=== PATIENT | female | born 1945 | race Caucasian/White ===

== ENCOUNTER → 2017-11-11 | Outpatient (CLI) | payer OTHER ==
[~2017-11-11] MED LIST: COEN150C PO; FISHOIL PO; VITA100C2 PO; vitamin C PO
--- NOTE | 2017-11-11 15:06 | DIAGNOSTIC IMAGING REPORT ---
KUB CLINICAL HISTORY: ABD PAIN nausea COMPARISON STUDY: No previous studies for comparison. FINDINGS: The soft tissues, psoas shadows, renal outlines and intestinal gas pattern appear normal. There is no evidence for bowel obstruction. No abnormal abdominal calcifications are seen. IMPRESSION: Normal study. The above report was generated using voice recognition software. It may contain grammatical, syntax or spelling errors. Electronically signed by: Shawn Bustamante M.D. 11/11/2017 3:04 PM Dictated Date/Time: 11/11/2017 3:04 PM
== END | disposition home or self-care (01) ==
LOC: C.RADPV 14:29
PROVIDERS: ATTEND Family Medicine
DX: R10.9 Unspecified abdominal pain (principal); R39.9 Unspecified symptoms and signs involving the genitourinary system

== ENCOUNTER 2018-09-29 01:16 | Inpatient (IN) ==
[2018-09-29] MEDS ORDERED: HALOPERIDOL LACTATE 5 MG/ML 1 ML VIAL ONE (01:36)
[2018-09-29] MEDS ORDERED: LORazepam 2 MG/ML VIAL (IM USE) ONE (01:36)
[2018-09-29] MEDS ORDERED: HALOPERIDOL LACTATE 5 MG/ML 1 ML VIAL IM STA (01:57)
[2018-09-29] MEDS ORDERED: LORazepam 2 MG/ML VIAL (IM USE) IM STA (01:57)
[2018-09-29 02:12] LABS: Basophils # (auto) 0.02 K/uL (0-0.2); Basophils % (auto) 0.2 %; Hematocrit (blood only) 35.6 % (37-47); Hemoglobin 12.3 g/dL (12.0-16.0); Immature Granulocytes # (auto) 0.01 K/uL (0.00-0.02); Immature Granulocytes % (auto) 0.1 %; Lymphocytes # (auto) 1.15 K/uL (1.2-3.4); Lymphocytes % (auto) 13.8 %; Mean Corpuscular Hgb Conc 34.6 g/dL (32-36); Mean Corpuscular Volume 92.5 fL (80-100); Mean Platelet Volume 9.5 fL (7.4-10.4); Monocytes # (auto) 0.34 K/uL (0.11-0.59); Monocytes % (auto) 4.1 %; Neutrophils # (auto) 6.83 K/uL (1.4-6.5); Neutrophils % (auto) 81.8 %; Platelet Count 271 K/uL (130-400); RDW Coefficient of Variation 13.6 % (11.5-14.5); RDW Standard Deviation 45.8 fL (36.4-46.3); Red Blood Count 3.85 M/uL (4.2-5.4); White Blood Count 8.35 K/uL (4.8-10.8)
[2018-09-29 02:28] LABS: Alanine Aminotransferase 35 U/L (12-78); Aspartate Aminotransferase 27 U/L (15-37); BUN Creatinine Ratio 16.7 (10-20); Blood Urea Nitrogen 12 mg/dl (7-18); Calcium 8.7 mg/dl (8.5-10.1); Carbon Dioxide 22 mmol/L (21-32); Chloride 98 mmol/L (98-107); Est GFR (Non-African American) 87.2; Glucose 150 mg/dl (70-99); Potassium 3.5 mmol/L (3.5-5.1); Sodium 129 mmol/L (136-145)
[2018-09-29 02:39] LABS: Albumin Globulin Ratio 1.2 (0.9-2); Alkaline Phosphatase 73 U/L (45-117); Bilirubin,Total 0.6 mg/dl (0.2-1); Globulin 3.3 gm/dl (2.5-4.0); Total Protein 7.3 gm/dl (6.4-8.2)
[2018-09-29 02:41] LABS: Acetaminophen < 2 ug/ml (10-30)
[2018-09-29 02:42] LABS: Salicylate < 1.7 mg/dl (2.8-20)
[2018-09-29] MEDS ORDERED: SODIUM CHLORIDE 0.9% 1000ML 1,000 ML IV ONE (03:21)
[2018-09-29 04:59] LABS: Appearance Urine Clear (Clear); Bacteria Urine Automated Negative (Negative); Bilirubin Urine Negative (Negative); Color Urine Yellow; Epithelial Cell Urine Auto 20-30 /lpf (0-5); Glucose Urine UA Negative (Negative); Ketones Urine Negative (Negative); Leukocyte Esterase Urine 2+ (Negative); Nitrite Urine Negative (Negative); Protein Urine Negative (Negative); Specific Gravity Urine 1.014 (1.000-1.030); Urobilinogen Urine Negative (Negative); pH Urine 5.5 (4.5-7.5)
[2018-09-29 05:14] LABS: Amphetamines+Metham, Urine Neg (Neg); Barbiturates, Urine Neg (Neg); Benzodiazepine, Urine Neg (Neg); Cocaine, Urine Neg (Neg); MDMA (Ecstacy), Urine Neg (Neg); Methadone, Urine Neg (Neg); Opiate, Urine Neg (Neg); Phencyclidine, Urine Neg (Neg)
--- NOTE | 2018-09-29 06:26 | Emergency Department Note ---
Entered by Chhaya Gaston acting as a scribe for History of Present Illness General Chief complaint: Mental Health Evaluation Stated complaint: HAS NOT SLEPT FOR SEVERAL DAYS,NOT TAKING MEDS Time Seen by Provider: 09/29/18 01:26 Source: patient, RN notes reviewed and other (RN notes, nursing staff) History of Present Illness Location: head Pain Consistency: + constant Quality: + other (mental health) Associated symptoms: + denies other symptoms (difficulty urinating); no loss of appetite The patient is a 73 year old female who presents to the Emergency Room for a mental health evaluation. The patient's son states that the patient's hasn't been getting enough sleep the past few days. The son complains that she hasn't been taking her medications and she's manic. Her reports that she has been verbally abuse the past few weeks and she was aggressive [employer] tonight. The patient's son states that she has been accusing him and her of being abusive when they are attempting to get her medical attention. They note that she hasn't been calling the police to her house. Her son states that she ran away from her family and the staff in the hospital parking lot while trying to be brought in. She denies any difficulty urinating or change in appetite. The patient states that her "health is fine." Her son reports that she has had mental health problems since 2013. Per the patient's son, she stopped taking her Risperidone and Trazodone about 2 weeks ago. HPI and ROS limited secondary to mental status. Home Medications Home Medications Medication Instructions Recorded Confirmed Type clonazepam 0.5 - 1 mg PO HS PRN 09/07/18 09/29/18 History sertraline 100 mg PO DAILY 09/07/18 09/29/18 History risperidone 0.5 mg PO BID 09/29/18 09/29/18 History trazodone 50 mg PO HS 09/29/18 09/29/18 History Allergies Allergy/AdvReac Type Severity Reaction Status Date / Time Penicillins Allergy Unknown rash Verified 09/29/18 02:03 Past Med/Surg History Medical History Bipolar 1 disorder with moderate freedom Mental health problem Surgical History H/O: hysterectomy (~1979) Family History Other Cancer Social History marital status: Feels Safe at Home: Yes Smoking Status: Unknown if ever smoked Preferred Language: French Review of Systems Other (HPI and ROS limited secondary to mental status. ) Physical Exam Vital Signs Vital Signs - 24 hr 09/29/18 01:52 09/29/18 02:00 09/29/18 02:18 Temperature 37.6 C H Temperature Source Oral Sepsis Recent Fever Within 48 Hours No Sepsis New/Unexplained Change in Mental Status No Sepsis Action Taken by Nursing No Action Required Pulse Rate 120 H Pulse Rate [Finger] 75 72 Respiratory Rate 18 18 18 Blood Pressure 198/97 H Blood Pressure [Right Arm] 120/65 105/56 L Blood Pressure Mean 130 Blood Pressure Mean [Right Arm] 83 72 Pulse Oximetry 100 94 94 Oxygen Delivery Method Room Air Room Air Room Air 09/29/18 02:30 09/29/18 02:45 09/29/18 03:00 Temperature Temperature Source Sepsis Recent Fever Within 48 Hours Sepsis New/Unexplained Change in Mental Status Sepsis Action Taken by Nursing Pulse Rate Pulse Rate [Finger] 69 69 67 Respiratory Rate 18 18 18 Blood Pressure Blood Pressure [Right Arm] 98/54 L 99/52 L 98/52 L Blood Pressure Mean Blood Pressure Mean [Right Arm] 68 67 67 Pulse Oximetry 95 95 96 Oxygen Delivery Method Room Air Room Air Room Air 09/29/18 04:47 Temperature Temperature Source Sepsis Recent Fever Within 48 Hours Sepsis New/Unexplained Change in Mental Status Sepsis Action Taken by Nursing Pulse Rate Pulse Rate [Finger] 67 Respiratory Rate 18 Blood Pressure Blood Pressure [Right Arm] 122/69 Blood Pressure Mean Blood Pressure Mean [Right Arm] 86 Pulse Oximetry 98 Oxygen Delivery Method Room Air General: Yelling loudly. Would not follow directions. Exhibiting threatening behavior towards the staff. HEENT: Head - normocephalic and atraumatic Pupils are equal, round, and reactive to light. Extraocular eye muscles are intact, and sclera are anicteric. Nose - moist nasal mucosa without discharge. Mouth - moist buccal mucosa. Oropharynx is nonerythematous and there is no tonsillar exudate or edema noted. Neck: Supple; no JVD, nuchal rigidity, cervical lymphadenopathy, or auscultated bruits. Heart: Tachycardic rate and regular rhythm. There is a normal S1 and S2 with no murmurs, clicks, or gallops appreciated. Lungs: Clear to auscultation bilaterally with no wheezes, rales, or rhonchi. Abdomen: Soft, completely nontender, nondistended, with good bowel sounds. There are no palpable pulsatile masses or hepatosplenomegaly. There is no guarding, rigidity, or rebound noted. Extremities: No evidence of cyanosis, clubbing, or edema. There are easily palpable peripheral pulses. Skin: warm and dry with good turgor and no rashes. Psych: Patient appears manic. Tangential thought process. Yelling loudly. Course 0128: Past medical records reviewed. The patient was evaluated in room A08, and a limited history and physical examination were performed. I assisted with security and nursing staff to maintain the patient's safety and prevent her from harming herself. We were able to get her changed into hospital scrubs and prepare for medical clearance. I had a long conversation with the patient's and son in the waiting room. 0136: The patient was chemically sedated with Ativan 2 mg IM, Haldol 5 mg IM 0211: I checked on the patient. She was sound asleep. 0249: Per the caser shoe parts, the family petitioned a 302, the caser shoe parts petitioned a supplement, and [facility] petitioned a warrant. 0321: The patient was hyponatremic. She was given NSS 1000 mls @ 999 mls/hr IV 0439: Per the nursing staff, the patient is awake and cooperative. The nursing staff states that she just finished her fluid bolus. Her labs will be redrawn. 0511: The patients sodium came up to 132 after she received the saline. She was medically cleared at that time for evaluation. 0521: I checked on the patient. She was sleeping. The caser shoe parts was working on placement. 0633: I signed the 302. 3 S. will review the patient's chart and decide on bed placement. 0700: The patient was signed out to Dr. Llanes, [facility] Emergency room, at the change of shift. Administered Medications Discontinued Medications Haloperidol Lactate (Haldol) Confirm Administered Dose 5 mg .ROUTE .[facility] [place]-MED ONE Stop: 09/29/18 01:37 Last Admin: 09/29/18 01:45 Dose: 5 mg Haloperidol Lactate (Haldol) 5 mg IM NOW STA Stop: 09/29/18 01:58 Last Admin: 09/29/18 02:20 Dose: Not Given Sodium Chloride (Nss 1000ml) 1,000 mls @ 999 mls/hr IV .Q1H1M ONE Stop: 09/29/18 04:21 Last Infusion: 09/29/18 04:38 Dose: 0 mls/hr Admin: 09/29/18 03:34 Dose: 999 mls/hr Lorazepam (Ativan) Confirm Administered Dose 2 mg .ROUTE .STK-MED ONE Stop: 09/29/18 01:37 Last Admin: 09/29/18 01:45 Dose: 2 mg Lorazepam (Ativan) 2 mg IM NOW STA Stop: 09/29/18 01:58 Last Admin: 09/29/18 02:19 Dose: Not Given Medical Decision Making Differential Diagnosis The differential diagnosis includes: sleep deprivation, mood disorder, thought disorder, acute freedom, and medication side effects. Medical Records Attestation: I reviewed the patient's medical records. Home Medications Current Medication List: was personally reviewed by me Laboratory Data Attestation: I reviewed the patient's lab results. Result diagrams: 09/29/18 02:00 09/29/18 04:45 Lab Results 09/29/18 09/29/18 09/29/18 Range/Units 02:00 02:00 02:00 WBC 8.35 (4.8-10.8) K/uL RBC 3.85 L (4.2-5.4) M/uL Hgb 12.3 (12.0-16.0) g/dL Hct 35.6 L (37-47) % MCV 92.5 (80-100) fL MCH 31.9 (25-34) pg MCHC 34.6 (32-36) g/dL RDW Std Deviation 45.8 (36.4-46.3) fL RDW Coeff of Gerson 13.6 (11.5-14.5) % Plt Count 271 (130-400) K/uL MPV 9.5 (7.4-10.4) fL Immature Gran % (Auto) 0.1 % Neut % (Auto) 81.8 % Lymph % (Auto) 13.8 % [place] % (Auto) 4.1 % Eos % (Auto) 0.0 % Baso % (Auto) 0.2 % Immature Gran # (Auto) 0.01 (0.00-0.02) K/uL Neut # (Auto) 6.83 H (1.4-6.5) K/uL Lymph # (Auto) 1.15 L (1.2-3.4) K/uL [place] # (Auto) 0.34 (0.11-0.59) K/uL Eos # (Auto) 0.00 (0-0.5) K/uL Baso # (Auto) 0.02 (0-0.2) K/uL Sodium 129 L (136-145) mmol/L Potassium 3.5 (3.5-5.1) mmol/L Chloride 98 (98-107) mmol/L Carbon Dioxide 22 (21-32) mmol/L Anion Gap 9.0 (3-11) BUN 12 (7-18) mg/dl Creatinine 0.70 (0.6-1.2) mg/dl Est Cr Clr Drug Dosing Not Reportable Est GFR ( Amer) 101.0 Est GFR (Non-Af Amer) 87.2 BUN/Creatinine Ratio 16.7 (10-20) Glucose 150 H (70-99) mg/dl Calcium 8.7 (8.5-10.1) mg/dl Total Bilirubin 0.6 (0.2-1) mg/dl AST 27 (15-37) U/L ALT 35 (12-78) U/L Alkaline Phosphatase 73 (45-117) U/L Total Protein 7.3 (6.4-8.2) gm/dl Albumin 4.0 (3.4-5.0) gm/dl Globulin 3.3 (2.5-4.0) gm/dl Albumin/Globulin Ratio 1.2 (0.9-2) TSH 3.050 (0.300-4.500) uIu/ml Urine Color Urine Appearance (Clear) Urine pH (4.5-7.5) Ur Specific Left Hand (1.000-1.030) Urine Protein (Negative) Urine Glucose (UA) (Negative) Urine Ketones (Negative) Urine Blood (Negative) Urine Nitrite (Negative) Urine Bilirubin (Negative) Urine Urobilinogen (Negative) Ur Leukocyte Esterase (Negative) Urine WBC (Auto) (0-5) /hpf Urine RBC (Auto) (0-4) /hpf U Hyaline Cast (Auto) (0-5) /lpf U Epithel Cells (Auto) (0-5) /lpf Urine Bacteria (Auto) (Negative) Salicylates < 1.7 L (2.8-20) mg/dl Urine Opiates Screen (Neg) Ur Methadone, Qual (Neg) Acetaminophen < 2 L (10-30) ug/ml Urine Barbiturates (Neg) Ur Phencyclidine (PCP) (Neg) U Amphetamin/Meth Scrn (Neg) MDMA (Ecstasy) Screen (Neg) U Benzodiazepines Scrn (Neg) Ur Cocaine Metabolite (Neg) U Marijuana (THC) Screen (Neg) Ethyl Alcohol mg/dL (0-3) mg/dl 09/29/18 09/29/18 09/29/18 Range/Units 02:00 04:45 04:45 WBC (4.8-10.8) K/uL RBC (4.2-5.4) M/uL Hgb (12.0-16.0) g/dL Hct (37-47) % MCV (80-100) fL MCH (25-34) pg MCHC (32-36) g/dL RDW Std Deviation (36.4-46.3) fL RDW Coeff of Gerson (11.5-14.5) % Plt Count (130-400) K/uL MPV (7.4-10.4) fL Immature Gran % (Auto) % Neut % (Auto) % Lymph % (Auto) % Otoe % (Auto) % Eos % (Auto) % Baso % (Auto) % Immature Gran # (Auto) (0.00-0.02) K/uL Neut # (Auto) (1.4-6.5) K/uL Lymph # (Auto) (1.2-3.4) K/uL Otoe # (Auto) (0.11-0.59) K/uL Eos # (Auto) (0-0.5) K/uL Baso # (Auto) (0-0.2) K/uL Sodium 132 L (136-145) mmol/L Potassium (3.5-5.1) mmol/L Chloride (98-107) mmol/L Carbon Dioxide (21-32) mmol/L Anion Gap (3-11) BUN (7-18) mg/dl Creatinine (0.6-1.2) mg/dl Est Cr Clr Drug Dosing Est GFR ( Amer) Est GFR (Non-Af Amer) BUN/Creatinine Ratio (10-20) Glucose (70-99) mg/dl Calcium (8.5-10.1) mg/dl Total Bilirubin (0.2-1) mg/dl AST (15-37) U/L ALT (12-78) U/L Alkaline Phosphatase (45-117) U/L Total Protein (6.4-8.2) gm/dl Albumin (3.4-5.0) gm/dl Globulin (2.5-4.0) gm/dl Albumin/Globulin Ratio (0.9-2) TSH (0.300-4.500) uIu/ml Urine Color Urine Appearance (Clear) Urine pH (4.5-7.5) Ur Specific Left Hand (1.000-1.030) Urine Protein (Negative) Urine Glucose (UA) (Negative) Urine Ketones (Negative) Urine Blood (Negative) Urine Nitrite (Negative) Urine Bilirubin (Negative) Urine Urobilinogen (Negative) Ur Leukocyte Esterase (Negative) Urine WBC (Auto) (0-5) /hpf Urine RBC (Auto) (0-4) /hpf U Hyaline Cast (Auto) (0-5) /lpf U Epithel Cells (Auto) (0-5) /lpf Urine Bacteria (Auto) (Negative) Salicylates (2.8-20) mg/dl Urine Opiates Screen Neg (Neg) Ur Methadone, Qual Neg (Neg) Acetaminophen (10-30) ug/ml Urine Barbiturates Neg (Neg) Ur Phencyclidine (PCP) Neg (Neg) U Amphetamin/Meth Scrn Neg (Neg) MDMA (Ecstasy) Screen Neg (Neg) U Benzodiazepines Scrn Neg (Neg) Ur Cocaine Metabolite Neg (Neg) U Marijuana (THC) Screen Neg (Neg) Ethyl Alcohol mg/dL < 3.0 (0-3) mg/dl 09/29/18 Range/Units 04:45 WBC (4.8-10.8) K/uL RBC (4.2-5.4) M/uL Hgb (12.0-16.0) g/dL Hct (37-47) % MCV (80-100) fL MCH (25-34) pg MCHC (32-36) g/dL RDW Std Deviation (36.4-46.3) fL RDW Coeff of Gerson (11.5-14.5) % Plt Count (130-400) K/uL MPV (7.4-10.4) fL Immature Gran % (Auto) % Neut % (Auto) % Lymph % (Auto) % Otoe % (Auto) % Eos % (Auto) % Baso % (Auto) % Immature Gran # (Auto) (0.00-0.02) K/uL Neut # (Auto) (1.4-6.5) K/uL Lymph # (Auto) (1.2-3.4) K/uL Otoe # (Auto) (0.11-0.59) K/uL Eos # (Auto) (0-0.5) K/uL Baso # (Auto) (0-0.2) K/uL Sodium (136-145) mmol/L Potassium (3.5-5.1) mmol/L Chloride (98-107) mmol/L Carbon Dioxide (21-32) mmol/L Anion Gap (3-11) BUN (7-18) mg/dl Creatinine (0.6-1.2) mg/dl Est Cr Clr Drug Dosing Est GFR ( Amer) Est GFR (Non-Af Amer) BUN/Creatinine Ratio (10-20) Glucose (70-99) mg/dl Calcium (8.5-10.1) mg/dl Total Bilirubin (0.2-1) mg/dl AST (15-37) U/L ALT (12-78) U/L Alkaline Phosphatase (45-117) U/L Total Protein (6.4-8.2) gm/dl Albumin (3.4-5.0) gm/dl Globulin (2.5-4.0) gm/dl Albumin/Globulin Ratio (0.9-2) TSH (0.300-4.500) uIu/ml Urine Color Yellow Urine Appearance Clear (Clear) Urine pH 5.5 (4.5-7.5) Ur Specific Left Hand 1.014 (1.000-1.030) Urine Protein Negative (Negative) Urine Glucose (UA) Negative (Negative) Urine Ketones Negative (Negative) Urine Blood 1+ H (Negative) Urine Nitrite Negative (Negative) Urine Bilirubin Negative (Negative) Urine Urobilinogen Negative (Negative) Ur Leukocyte Esterase 2+ H (Negative) Urine WBC (Auto) 5-10 H (0-5) /hpf Urine RBC (Auto) 0-4 (0-4) /hpf U Hyaline Cast (Auto) 1-5 (0-5) /lpf U Epithel Cells (Auto) 20-30 H (0-5) /lpf Urine Bacteria (Auto) Negative (Negative) Salicylates (2.8-20) mg/dl Urine Opiates Screen (Neg) Ur Methadone, Qual (Neg) Acetaminophen (10-30) ug/ml Urine Barbiturates (Neg) Ur Phencyclidine (PCP) (Neg) U Amphetamin/Meth Scrn (Neg) MDMA (Ecstasy) Screen (Neg) U Benzodiazepines Scrn (Neg) Ur Cocaine Metabolite (Neg) U Marijuana (THC) Screen (Neg) Ethyl Alcohol mg/dL (0-3) mg/dl Blood Pressure Blood Pressure Findings: Elevated blood pressure Blood Pressure Disposition: elevated BP felt to be situational MDM Narrative The patient is a 73 year old female who presents to the Emergency Room for a mental health evaluation. The patient has a history of bipolar disorder and has recently stopped taking her medications. She is also sleep deprived at this time. She presents to the emergency department with her family because they are concerned for her safety. The patient is not able to make safe decisions or care for herself at this time. She is extremely agitated and unable to follow simple commands. She was noted to be hyponatremic and received normal saline solution. Her sodium came up to 132. The case was signed out to Dr. Llanes change of shift awaiting bed placement. Impression & Plan Freedom, Hyponatremia Critical Care Time I have personally spent greater than 35 minutes of critical care time in the direct management of this patient. This includes bedside care, interpretation of diagnostic studies, and testing, discussion with consultants, patient, and family members, and other required patient management activities. This 35 minutes is in excess of all separately billable procedures. Critical Care Time: Yes Total Critical Care Time: 35 Discharge Plan Visit Data Chief Complaint: Mental Health Evaluation Stated Complaint: HAS NOT SLEPT FOR SEVERAL DAYS,NOT TAKING MEDS ED Provider: Hali Jones Discharge Problem: Freedom, Hyponatremia Patient Disposition: Still a Patient Forms Stand Alone Forms: My [facility] Prescriptions Prescriptions: No Action sertraline 100 mg Tablet 100 mg PO DAILY RF: 0 clonazepam 1 mg Tablet 0.5 - 1 mg PO HS PRN (Reason: Insomnia) RF: 0 trazodone 50 mg Tablet 50 mg PO HS RF: 0 risperidone 0.25 mg Tablet 0.5 mg PO BID RF: 0 Referrals Referrals: Donna Lucia MD [Primary Care Provider] - The scribe's documentation has been prepared under my direction and personally reviewed by me in its entirety. I confirm that the note above accurately reflects all work, treatment, procedures, and medical decision making performed by me.
[2018-09-29] MEDS ORDERED: BISMUTH SUBSALICYLATE PER ML OMNICELL CHARGE PO PRN (08:10)
[2018-09-29] MEDS ORDERED: MAGNESIUM HYDROXIDE SUSP 30 ML UDC PO PRN (08:10)
[2018-09-29] MEDS ORDERED: ACETAMINOPHEN 325 MG TAB PO PRN (08:10)
[2018-09-29] MEDS ORDERED: ALUMINUM/MAGNESIUM SUSP 30 ML UDC PO PRN (08:10)
[2018-09-29] MEDS ORDERED: SODIUM CHLORIDE 0.65% NA SOLN 45 ML (OCEAN) PRN (08:10)
[2018-09-29] MEDS ORDERED: LORazepam 2 MG/ML VIAL (IM USE) IM PRN (08:12)
[2018-09-29] MEDS ORDERED: HALOPERIDOL LACTATE 5 MG/ML 1 ML VIAL IM PRN (08:12)
--- NOTE | 2018-09-29 08:23 | Emergency Department Note ---
ED Visit Note I received this patient at change of shift signout from Dr. Jones. Please see her note for complete history and physical. The patient is a 73-year-old female who has a long mental health history who presented to the emergency department in a manic state. She was accompanied by her family members who felt that this was an acute exacerbation of her underlying mental health illness. She has had insomnia. She required restraint and sedation on initial evaluation but has since been much more pleasant and agreeable to evaluation. The patient was medically cleared. She was a 302 petition by the family. This was upheld in the emergency department. Bed search was underway but the patient was felt to be a good candidate for evaluation and treatment at our facility. She was evaluated by the delegate from 3 S. and has been accepted for further inpatient treatment. .
[2018-09-29] MEDS ORDERED: clonazePAM 0.5 MG TAB PO PRN (12:11)
--- NOTE | 2018-09-29 12:35 | Medical Student H&P ---
Date of Service September 29, 2018 Impression / Recommendations Plan: This is a 73-year-old female with a history of bipolar I disorder who was brought to [facility] by family for symptoms of freedom including poor sleep, not caring for herself, elevated mood, and speaking aggressively in the setting of non-adherence to her psychiatric medications. On exam she is easily distractable and has pressured, tangential speech. All of this combined with the inability to care for herself and needing hospitalization culminates in a diagnosis of a manic episode. One point to consider is that although she has a diagnosis of bipolar, she is currently prescribed sertraline, and her dose was increased in July. It is possible that this dose increase may be related to her manic episodes in August and now. 1. Manic episode - Resume Risperdal 0.5 mg BID - Offer 0.5 mg clonazepam PRN - Stop sertraline and trazodone - Request records from her hospitalization in August - Follow fasting lipid and glucose level on 09/30 to get baseline - Q15 minute checks for safety 2. Disposition - Coordinate psychiatric aftercare. - Continue hospitalization until freedom is resolved. - She may stay in a private room until manic symptoms are improved. History & Physical Identifying Data VALENTINA CLARK is a 73-year-old F admitted on September 29, 2018 08:10 who currently lives in [place] with her . VALENTINA CLARK was admitted on a 302 involuntary commitment. Patient is admitted from home. Information provided by the patient is considered to be unreliable. Chief Complaint "I don't know what they told you." History of Present Illness This is a 73-year-old female with a history of bipolar disorder who presents with what her family thought were manic symptoms. Valentina says she's been "doing fine" lately because she's been "eating nutritious foods," her " is organizing my meds," she is "sleeping more," and attending/planning various medical appointments. She says her son, Julián, came to her home last evening and was "angry with me for not setting up my appointments" with her psychiatrist and family doctor. Valentina believes that she has been organizing her medical appointments well, so his reaction was upsetting for her. When asked about why she came into the hospital, she again reiterates her careful planning of her appointments. Valentina believes that she has been sleeping well (7-8 hours per night) and that her appetite has been "good." She denies racing thoughts, increased talkativeness, or anxiety. She says her mood is "happy," and when asked to rate her mood on a scale of 0-10, she says "I'm cool, calm, and collected." She denies hallucinations, impulsive behaviors, suicidal ideation, homicidal ideation. She says her goals for her hospitalization is to "show everyone she's doing fine" and to have "peace of mind." Per the 302 petition, her son says that "Valentina has not slept for several days. Valentina has not taken the medications prescribed by the psychiatrist at [facility]. Valentina has not been eating well." In the emergency department, her says that she has been verbally abusive towards him and was aggressive prior to arriving at [facility]. Valentina offers limited psychiatric history. She says that she has not ever received a diagnosis or name for her psychiatric problems. Per [employer], she was receiving with 100 mg of sertraline and 1 mg of clonazepam for anxiety and depression, prescribed by Dr. Lucia. She says that she was hospitalized once for "not sleeping" but does not elaborate further. Per medical records, Valentina was seen in our ER in August for a first-time manic episode. She was hospitalized outside [facility] for psychiatric care and was started on respiridone 0.5 mg BID and trazodone 50 mg qHS. Allergies Allergy/AdvReac Type Severity Reaction Status Date / Time Penicillins Allergy Unknown rash Verified 09/29/18 02:03 Home Medications Home Medications Medication Instructions Recorded Confirmed Type clonazepam 0.5 - 1 mg PO HS PRN 09/07/18 09/29/18 History risperidone 0.5 mg PO BID 09/29/18 09/29/18 History sertraline 25 mg PO DAILY 09/29/18 09/29/18 History trazodone 50 mg PO HS 09/29/18 09/29/18 History Patient History Medical History Bipolar 1 disorder with moderate freedom Mental health problem Surgical History H/O: hysterectomy (~1979) Family History Other Cancer Social History marital status: Feels Safe at Home: Yes Smoking Status: Unknown if ever smoked Beliefs That Will Affect Care: None Preferred Language: Malawian Communication Ability: Impaired 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: No Physical Exam Vital Signs (Past 24 Hours) Last Vital Signs Temp 37.6 C H 09/29/18 01:52 Pulse 76 09/29/18 10:30 Resp 16 09/29/18 10:30 BP 130/66 09/29/18 10:30 Pulse Ox 98 09/29/18 10:30 Mental Examination Appearance: Disheveled Eye Contact: Direct Eye Contact Motor Behavior: Hyperactive Speech: Excessive, Disorganized, Repetitive and Rambling Mood: Angry and Irritable Affect: Apprehensive, Irritable and Suspicious Insight: Poor Judgement: Poor Psychiatric A+Ox3, euthymic affect Apperance: appropriately dressed and + disheveled (hair is disheveled) Eye Contact: good eye contact Motor Behavior: no abnormal motor movements Speech: + pressured speech Affect: euthymic affect Thought Process: + tangential thought process Thought Content: + preoccupation (constantly bringing conversation back to her ability to plan her appointments appropriately. Not answering direct questions) Suicidal Thoughts: denies suicidal thoughts Homicidal Thoughts: denies homicidal thoughts Hallucinations: no auditory hallucinations and no visual hallucinations Cognition: + recent memory not intact and + remote memory not intact Estimated Intelligence: consistent with education level (High school graduate) Insight: + impaired insight Judgement: + impaired judgement
--- NOTE | 2018-09-29 12:38 | History & Physical ---
Date of Service September 29, 2018 Impression / Recommendations Impression 73-year-old woman brought to the emergency department with manic behaviors, now committed on a 302 involuntary commitment to our unit. Although she was able to get a little bit asleep after 5 mg of Haldol and some Ativan, she remains manic with racing thoughts, tangentiality, circumstantiality. Her current state of freedom. For now we will discontinue Zoloft, I will restart Risperdal 0.5 mg twice daily as well as family reports that she has not been taking the Risperdal or trazodone but has been taking Zoloft unopposed which may be contributing to her Klonopin 0.5 mg every 4 hours as needed. We will run a fasting lipid panel and fasting sugar tomorrow morning for monitoring on antipsychotics. If no EKG has been done we will obtain 1 of those as well. We will need additional information from as to whether or not she has a history of bipolarity prior to being seen at our facility in August. For now we will keep her on a medically necessary private room due to her intrusiveness. We will need to continue to gather information toward the need for ongoing treatment and whether we will need to file for a 303 commitment. (1) Freedom: 09/29 - Restart Risperdal 0.5 mg BID, first dose now - Klonopin 0.5 mg q 4 h prn freedom - Obtain supplemental information from - the patient will need psychiatric aftercare - FLP and FBS for monitoring on antipsychotics - The patient will be excused from groups due to the need to limit stimulation - Q 15 min checks for safety - MNPR due to intrusiveness - Rpt Na with AM labs as Na was 132 in the ED - EKG if one has not been obtained. Present on Admission?: Yes Inventory Assets Strengths: Good family support Needs: To be in psychiatric treatment as an OP Risk Factors Assessment Male: No : Yes Do You Have Access To A Gun?: Yes ( has guns that she reports are locked) Health Problems: No Mental Health Diagnoses: Yes Substance Use Disorders: No Previous Attempt: No Family History of Suicide: No Previous Psychiatric Hospitalization: Yes Hopelessness: No Smoker: No Protective Factors Assessment Episcopal Beliefs: Yes : Yes Responsible for Young Children: No Employed: No Stable Relationships: Yes Supportive Family: Yes Psychiatric History Identifying Data VALENTINA CLARK is a 73-year-old F who was brought to the ED by her and son due to manic behaviors. She is admitted on a 302 involuntary commitment. Information is gathered from the patient and not considered to be reliable. Additional information is gathered from patient's and son Julián. Chief Complaint "I've been doing everything (in terms of treatment).". History of Present Illness The patient is a 73-year-old woman who presented to our emergency department in August with manic symptoms and was sent to [facility] for treatment. She was there from September 09-, diagnosed with bipolar disorder and ISIDRA, and discharged on Risperdal, trazodone, Klonopin and 25 mg of Zoloft. Per the 302 petitioner statement from her son, apparently she has not been sleeping well for the last several days, not eating well and has not taken her Risperdal or trazodone since being discharged from [facility]. She has been argumentative with her family and they felt it necessary to bring her to the emergency department. When they got here she refused to come into the building requiring the assistance of security to get her to come in. She was given Haldol and Ativan in the emergency department and was able to sleep for a few hours. A 302 commitment was granted and she came to our unit late this morning. At the time we see the patient, Marnie is cooperative however is extremely hyperverbal, tangential and circumstantial. She cannot answer any open ended question without getting lost in the details and talking in circles. Early attempts to redirect were met with irritability. She talked at length about her providers including her PCP at [facility] insisting that the doctor at [facility] told her to continue to take the medications that her PCP had told her to. This may have included Zoloft 100 mg daily which may indeed have contributed to the exacerbation of her freedom. Although the 302 petitioner statement indicates that she has not been sleeping, the patient says that she sleeps well. She describes her mood as "good", "happy". When asked to rate her mood on a 0-10 scale she gets lost and distracted from the question and never does provide an number. She denies suicidality saying "I want to live a long time". She denies thoughts to hurt anybody else. She denies racing thoughts however her thoughts move from one subject to the next without taking a breath. She denies anxiety. She denies auditory or visual hallucinations. She describes herself as "at peace with myself". Past Psychiatric History Previous Psych History: [facility] from September 09- of this year Current Psychiatric Diagnosis: Bipolar Disorder II, ISIDRA Outpatient Services: No outpatient psych appointments were listed on the discharge information from [facility] Previous Psych Admissions: [facility] Do You Have Access To A Gun?: Yes ( has guns that she reports are locked) History of Previous Suicide Attempt: No Past Medication Trials: Unable to obtain at this time due to manic condition Allergies Allergy/AdvReac Type Severity Reaction Status Date / Time Penicillins Allergy Unknown rash Verified 09/29/18 02:03 Home Medications Home Medications Medication Instructions Recorded Confirmed Type clonazepam 0.5 - 1 mg PO HS PRN 09/07/18 09/29/18 History risperidone 0.5 mg PO BID 09/29/18 09/29/18 History sertraline 25 mg PO DAILY 09/29/18 09/29/18 History trazodone 50 mg PO HS 09/29/18 09/29/18 History Family History Family History of: Other Mood Disorders (Son with possible bipolar disorder) Alcohol History Hx of Alcohol Use Over the Past 12 Months: No Smoking Use Smoking Status: Unknown if ever smoked Substance History Hx of Prescription Med Misuse Over the Past 12 Months: No Hx of Over the Counter Med Misuse Over the Past 12 Months: No Hx of Inhalent Misuse Over the Past 12 Months: No Hx of Organic Substance Use Over the Past 12 Months: No Hx of Illegal Substances/Street Drug Use Over Past 12 Months: No Problems as a Result of Past Substance Use: None Identified Personal History Living Arrangements: Home Highest Grade Completed: High School Graduate Employment Status: Retired Number Of Children: 2 sons Legal Problems Comment: Denies Patient History Medical History Bipolar 1 disorder with moderate freedom Mental health problem Surgical History H/O: hysterectomy (~1979) Family History Other Cancer Social History marital status: Feels Safe at Home: Yes Smoking Status: Unknown if ever smoked Preferred Language: French Review of Systems All systems reviewed & are unremarkable except as noted in HPI & below Physical Exam Mental Examination Exam performed by Dr. Kunal Cifuentes in the emergency department has been reviewed and accepted his medical clearance for our unit Psychiatric Orientation: alert, oriented x 3 and cooperative Apperance: appropriately dressed and + disheveled Eye Contact: good eye contact Motor Behavior: steady gait and station and no abnormal motor movements Speech: + pressured speech Affect: + anxious affect Mood: + irritable mood Thought Process: + circumstantial thought process, + tangential thought process and + flight of ideas Thought Content: + cognitive distortions Suicidal Thoughts: denies suicidal thoughts Homicidal Thoughts: denies homicidal thoughts Hallucinations: no auditory hallucinations and no visual hallucinations Cognition: language grossly intact Estimated Intelligence: average estimated intelligence Insight: + impaired insight Judgement: + impaired judgement Vital Signs (Past 24 Hours) Last Vital Signs Temp 37.6 C H 09/29/18 01:52 Pulse 76 09/29/18 10:30 Resp 16 09/29/18 10:30 BP 130/66 09/29/18 10:30 Pulse Ox 98 09/29/18 10:30 Results & Data Laboratory Results Laboratory Results - last 24 hr 09/29/18 09/29/18 09/29/18 02:00 02:00 02:00 WBC 8.35 RBC 3.85 L Hgb 12.3 Hct 35.6 L MCV 92.5 MCH 31.9 MCHC 34.6 RDW Std Deviation 45.8 RDW Coeff of Gerson 13.6 Plt Count 271 MPV 9.5 Immature Gran % (Auto) 0.1 Neut % (Auto) 81.8 Lymph % (Auto) 13.8 Swain % (Auto) 4.1 Eos % (Auto) 0.0 Baso % (Auto) 0.2 Immature Gran # (Auto) 0.01 Neut # (Auto) 6.83 H Lymph # (Auto) 1.15 L Swain # (Auto) 0.34 Eos # (Auto) 0.00 Baso # (Auto) 0.02 Sodium 129 L Potassium 3.5 Chloride 98 Carbon Dioxide 22 Anion Gap 9.0 BUN 12 Creatinine 0.70 Est Cr Clr Drug Dosing Not Reportable Est GFR ( Amer) 101.0 Est GFR (Non-Af Amer) 87.2 BUN/Creatinine Ratio 16.7 Glucose 150 H Calcium 8.7 Total Bilirubin 0.6 AST 27 ALT 35 Alkaline Phosphatase 73 Total Protein 7.3 Albumin 4.0 Globulin 3.3 Albumin/Globulin Ratio 1.2 TSH 3.050 Urine Color Urine Appearance Urine pH Ur Specific [place] Urine Protein Urine Glucose (UA) Urine Ketones Urine Blood Urine Nitrite Urine Bilirubin Urine Urobilinogen Ur Leukocyte Esterase Urine WBC (Auto) Urine RBC (Auto) U Hyaline Cast (Auto) U Epithel Cells (Auto) Urine Bacteria (Auto) Salicylates < 1.7 L Urine Opiates Screen Ur Methadone, Qual Acetaminophen < 2 L Urine Barbiturates Ur Phencyclidine (PCP) U Amphetamin/Meth Scrn MDMA (Ecstasy) Screen U Benzodiazepines Scrn Ur Cocaine Metabolite U Marijuana (THC) Screen Ethyl Alcohol mg/dL 09/29/18 09/29/18 09/29/18 02:00 04:45 04:45 WBC RBC Hgb Hct MCV MCH MCHC RDW Std Deviation RDW Coeff of Gerson Plt Count MPV Immature Gran % (Auto) Neut % (Auto) Lymph % (Auto) Swain % (Auto) Eos % (Auto) Baso % (Auto) Immature Gran # (Auto) Neut # (Auto) Lymph # (Auto) Swain # (Auto) Eos # (Auto) Baso # (Auto) Sodium 132 L Potassium Chloride Carbon Dioxide Anion Gap BUN Creatinine Est Cr Clr Drug Dosing Est GFR ( Amer) Est GFR (Non-Af Amer) BUN/Creatinine Ratio Glucose Calcium Total Bilirubin AST ALT Alkaline Phosphatase Total Protein Albumin Globulin Albumin/Globulin Ratio TSH Urine Color Urine Appearance Urine pH Ur Specific [place] Urine Protein Urine Glucose (UA) Urine Ketones Urine Blood Urine Nitrite Urine Bilirubin Urine Urobilinogen Ur Leukocyte Esterase Urine WBC (Auto) Urine RBC (Auto) U Hyaline Cast (Auto) U Epithel Cells (Auto) Urine Bacteria (Auto) Salicylates Urine Opiates Screen Neg Ur Methadone, Qual Neg Acetaminophen Urine Barbiturates Neg Ur Phencyclidine (PCP) Neg U Amphetamin/Meth Scrn Neg MDMA (Ecstasy) Screen Neg U Benzodiazepines Scrn Neg Ur Cocaine Metabolite Neg U Marijuana (THC) Screen Neg Ethyl Alcohol mg/dL < 3.0 09/29/18 04:45 WBC RBC Hgb Hct MCV MCH MCHC RDW Std Deviation RDW Coeff of Gerson Plt Count MPV Immature Gran % (Auto) Neut % (Auto) Lymph % (Auto) Swain % (Auto) Eos % (Auto) Baso % (Auto) Immature Gran # (Auto) Neut # (Auto) Lymph # (Auto) Swain # (Auto) Eos # (Auto) Baso # (Auto) Sodium Potassium Chloride Carbon Dioxide Anion Gap BUN Creatinine Est Cr Clr Drug Dosing Est GFR ( Amer) Est GFR (Non-Af Amer) BUN/Creatinine Ratio Glucose Calcium Total Bilirubin AST ALT Alkaline Phosphatase Total Protein Albumin Globulin Albumin/Globulin Ratio TSH Urine Color Yellow Urine Appearance Clear Urine pH 5.5 Ur Specific [place] 1.014 Urine Protein Negative Urine Glucose (UA) Negative Urine Ketones Negative Urine Blood 1+ H Urine Nitrite Negative Urine Bilirubin Negative Urine Urobilinogen Negative Ur Leukocyte Esterase 2+ H Urine WBC (Auto) 5-10 H Urine RBC (Auto) 0-4 U Hyaline Cast (Auto) 1-5 U Epithel Cells (Auto) 20-30 H Urine Bacteria (Auto) Negative Salicylates Urine Opiates Screen Ur Methadone, Qual Acetaminophen Urine Barbiturates Ur Phencyclidine (PCP) U Amphetamin/Meth Scrn MDMA (Ecstasy) Screen U Benzodiazepines Scrn Ur Cocaine Metabolite U Marijuana (THC) Screen Ethyl Alcohol mg/dL Current Inpatient Medications Current Inpatient Medications: Current Inpatient Medications Acetaminophen (Tylenol) 650 mg PO Q4H PRN PRN Reason: Headache or Minor Fever Stop: 10/29/18 08:09 Al Hydrox/Mg Hydrox/Simethicone (Maalox) 30 ml PO Q4H PRN PRN Reason: GI Upset Stop: 10/29/18 08:09 Bismuth Subsalicylate (Kaopectate) 15 ml PO PRN PRN PRN Reason: Loose Stool Stop: 10/29/18 08:09 Clonazepam (Klonopin) 0.5 mg PO Q4H PRN PRN Reason: freedom Stop: 10/29/18 12:10 Haloperidol Lactate (Haldol) 5 mg IM Q4 PRN PRN Reason: psychosis or agitation Stop: 10/29/18 08:11 Hydroxyzine HCl (Vistaril) 50 mg PO HSZ PRN PRN Reason: Insomnia Stop: 10/29/18 08:09 Hydroxyzine HCl (Vistaril) 25 mg PO Q4H PRN PRN Reason: Anxiety Stop: 10/29/18 08:09 Lorazepam (Ativan) 1 mg IM Q4 PRN PRN Reason: psychosis or agitation Stop: 10/29/18 08:11 Magnesium Hydroxide (Milk Of Magnesia) 30 ml PO DAILY PRN PRN Reason: Heartburn Stop: 10/29/18 08:09 Risperidone (Risperdal) 0.5 mg PO BID PILI Stop: 10/29/18 12:14 Sodium Chloride ([place] Nasal) 1 - 2 sprays NA PRN PRN PRN Reason: Nasal Dryness/Congestion Stop: 10/29/18 08:09 Trazodone HCl (Desyrel) 50 mg PO HS PILI Stop: 10/29/18 21:59 CPT Code CPT Code Initial Hospital Care: 88633
[2018-09-29] MEDS: risperiDONE 0.5 MG TABLET PO SCH ×2 (13:04→21:12)
[2018-09-29] MEDS: TRAZODONE HCL 50 MG TAB PO SCH (21:12)
[2018-09-30] MEDS: risperiDONE 0.5 MG TABLET PO SCH ×2 (08:57→21:13)
[2018-09-30 09:05] LABS: Glucose Fasting 93 mg/dl (70-99); Sodium 139 mmol/L (136-145)
[2018-09-30 09:08] LABS: Chol HDL Ratio 2; Cholesterol 154 mg/dl (0-200); HDL Cholesterol 80 mg/dl; LDL Cholesterol Calculated 64 mg/dl; Triglycerides 52 mg/dl (0-150); VLDL Cholesterol 10 mg/dl
--- NOTE | 2018-09-30 10:37 | Psychiatric Progress Note ---
Date of Service September 30, 2018 Impression / Recommendations Impression 73 yo woman admitted involuntarily in a manic state. reports that her first psychiatric symptoms appeared last month, that she has no psych history. She had been on Zoloft 100 mg from PCP prior to that and so there exists the possibility that this activated her. She is improved today having received 2 doses of risperdal, which we will continue for now and consider increase if mood remains euphoric. Ekg was performed on admission with a mildly prolonged QTc and so will repeat tomorrow AM. Labs have been reviewed and all are WNL, with Na having normalized. Patient agreeable to signing in voluntarily if treatment needed beyond 5 days. (1) Benita: 09/29 - Restart Risperdal 0.5 mg BID, first dose now - Klonopin 0.5 mg q 4 h prn benita - Obtain supplemental information from - the patient will need psychiatric aftercare - FLP and FBS for monitoring on antipsychotics - The patient will be excused from groups due to the need to limit stimulation - Q 15 min checks for safety - MNPR due to intrusiveness - Rpt Na with AM labs as Na was 132 in the ED - EKG if one has not been obtained. 09/30 - Continue current meds, but consider increase if euphoria continues - Labs WNL - Schedule family meeting - Establish psychiatric aftercare Inventory Assets Strengths: Good family support Needs: To be in psychiatric treatment as an OP Risk Factors Assessment Male: No : Yes Do You Have Access To A Gun?: Yes ( has guns that she reports are locked) Health Problems: No Mental Health Diagnoses: Yes Substance Use Disorders: No Previous Attempt: No Family History of Suicide: No Previous Psychiatric Hospitalization: Yes Hopelessness: No Smoker: No Protective Factors Assessment Latter Day Beliefs: Yes : Yes Responsible for Young Children: No Employed: No Stable Relationships: Yes Supportive Family: Yes Interval History Identifying Information 73 yo female admitted to our unit on a 302 involuntary commitment in a manic state. She was in [facility] last month for a similar manic episode. Chief Complaint "I feel great.". Review of Systems Sleep Information Total Hours of Sleep: 8 Sleep Comments: awake at 0515-provided with a mug of fresh water, reminded her she is having fasting blood work this am and i removed the snacks in her room. sleep total between 3/11 and 06/23 shifts she appeared to be back to sleep on 0600 rounds. Meal Information Percent Meal Consumed - Breakfast: 100 Percent Meal Consumed - Lunch: 100 Percent Meal Consumed - Dinner: 100 Subjective Subjective Patient was seen & assessed and interval progress reviewed with Treatment Team. The patient has just come from exercise group where she participated in [employer], and says that she feels "great". She says that her thoughts are moving slower than yesterday and "I got a good night's sleep.", with nursing reporting 8 hours. Her mood remains somewhat euphoric using superlatives to describe everything from her mood to her appetite. She is able to be silent for periods of time during the interview, which is an improvement over yesterday. She denies aud/vis hallucinations. We talk about her commitment status and she agrees that if we recommend a longer stay than the 5 day commitment, then she will sign in voluntarily. Physical Exam Psychiatric Orientation: alert, oriented x 3 and cooperative Apperance: appropriately dressed and appropriately groomed Eye Contact: good eye contact Motor Behavior: steady gait and station and no abnormal motor movements Speech: normal rate/rhythm/volume of speech Smiling euphoric Thought Process: goal directed thought process Thought Content: reality based without delusions Suicidal Thoughts: denies suicidal thoughts Homicidal Thoughts: denies homicidal thoughts Hallucinations: no auditory hallucinations and no visual hallucinations Cognition: recent memory grossly intact, remote memory grossly intact, attention grossly intact and language grossly intact Estimated Intelligence: average estimated intelligence Insight: + impaired insight Judgement: + impaired judgement Vital Signs (Past 24 Hours) Last Vital Signs Temp 36.5 C 09/30/18 06:41 Pulse 71 09/30/18 06:42 Resp 16 09/30/18 06:41 BP 165/90 H 09/30/18 06:42 Pulse Ox 98 09/29/18 12:17 Results & Data Laboratory Results Laboratory Results - last 24 hr 09/30/18 08:13 Sodium 139 D Fasting Glucose 93 Triglycerides 52 Cholesterol 154 LDL Cholesterol, Calc 64 VLDL Cholesterol, Calc 10 HDL Cholesterol 80 Cholesterol/HDL Ratio 2 Current Inpatient Medications Current Inpatient Medications: Current Inpatient Medications Acetaminophen (Tylenol) 650 mg PO Q4H PRN PRN Reason: Headache or Minor Fever Stop: 10/29/18 08:09 Al Hydrox/Mg Hydrox/Simethicone (Maalox) 30 ml PO Q4H PRN PRN Reason: GI Upset Stop: 10/29/18 08:09 Bismuth Subsalicylate (Kaopectate) 15 ml PO PRN PRN PRN Reason: Loose Stool Stop: 10/29/18 08:09 Clonazepam (Klonopin) 0.5 mg PO Q4H PRN PRN Reason: benita Stop: 10/29/18 12:10 Haloperidol Lactate (Haldol) 5 mg IM Q4 PRN PRN Reason: psychosis or agitation Stop: 10/29/18 08:11 Hydroxyzine HCl (Vistaril) 50 mg PO HSZ PRN PRN Reason: Insomnia Stop: 10/29/18 08:09 Hydroxyzine HCl (Vistaril) 25 mg PO Q4H PRN PRN Reason: Anxiety Stop: 10/29/18 08:09 Lorazepam (Ativan) 1 mg IM Q4 PRN PRN Reason: psychosis or agitation Stop: 10/29/18 08:11 Magnesium Hydroxide (Milk Of Magnesia) 30 ml PO DAILY PRN PRN Reason: Heartburn Stop: 10/29/18 08:09 Risperidone (Risperdal) 0.5 mg PO BID PILI Stop: 10/29/18 12:14 Last Admin: 09/30/18 08:57 Dose: 0.5 mg Sodium Chloride ([place]bert Nasal) 1 - 2 sprays NA PRN PRN PRN Reason: Nasal Dryness/Congestion Stop: 10/29/18 08:09 Trazodone HCl (Desyrel) 50 mg PO HS PILI Stop: 10/29/18 21:59 Last Admin: 09/29/18 21:12 Dose: 50 mg Post Discharge Appointments Primary Care Physician Name Of Family Doctor: Dr. Lucia Therapist Name of Therapist: Td Guthrie Counselor Filler Feeder Name of Filler Feeder: None CPT Code CPT Code 17352
--- NOTE | 2018-09-30 13:56 | Medical Student Progress Note ---
Date of Service September 30, 2018 Assessment & Plan (1) Freedom: This is a 73-year-old female with a history of bipolar I disorder who was brought to [facility] by family for symptoms of freedom including poor sleep, not caring for herself, elevated mood, and speaking aggressively in the setting of non-adherence to her psychiatric medications. On exam she is easily distractable and has pressured, tangential speech. All of this combined with the inability to care for herself and needing hospitalization culminates in a diagnosis of a manic episode. One point to consider is that although she has a diagnosis of bipolar, she is currently prescribed sertraline, and her dose was increased in July. It is possible that this dose increase may be related to her manic episodes in August and now. 1. Manic episode - Improved from yesterday - she is still very talkative with elevated mood but speech is more coherent and she is more easily interruptible. She is sleeping and eating well. - Continue Risperdal 0.5 mg BID - Consider stopping trazodone and/or switching to another sleep aid. Serotonergic activity may contribute to freedom. - Offer 0.5 mg clonazepam PRN - Stop sertraline. - Request records from her hospitalization in August - 09/30/18 FLP and fasting glucose are WNL. - Q15 minute checks for safety 2. Disposition - Coordinate psychiatric aftercare. - Continue hospitalization until freedom is resolved. - She may stay in a private room until manic symptoms are improved. Renata Domingo is a 73-year-old female with Bipolar I disorder who is admitted for a manic episode. When asked how she's doing she says, "I'm good, pardon me I just swallowed up my lunch!" She then reflects on the beautiful weather, the sunshine , and Toth's Day. She shares that her is her Janey and "I just love him so much." She says she slept well last night and has been eating all of her meals. She attends groups and participated in pilates this morning which she enjoyed. Her only complaint is that the trazodone makes her feel nauseous at night. She says that it does make her tired but the nausea keeps her up later than she'd like. She denies SI, HI, and hallucinations. Physical Exam 2 Vital Signs (Past 24 Hours): Last Vital Signs Temp 36.5 C 09/30/18 06:41 Pulse 86 09/30/18 13:03 Resp 16 09/30/18 06:41 BP 161/99 H 09/30/18 13:03 Pulse Ox 98 09/29/18 12:17 Psychiatric: A+Ox3, euthymic affect Apperance: appropriately dressed and + disheveled (hair is disheveled) Eye Contact: good eye contact Motor Behavior: no abnormal motor movements Speech: + pressured speech (but improved from yesterday, more interruptible) Affect: + elated affect Mood : no depressed mood (elevated mood) Thought Process: + flight of ideas Suicidal Thoughts: denies suicidal thoughts Homicidal Thoughts: denies homicidal thoughts Hallucinations: no auditory hallucinations and no visual hallucinations Cognition: + recent memory not intact and + remote memory not intact Estimated Intelligence: consistent with education level (High school graduate) Insight: + limited insight Judgement: + limited judgement Results & Data Medications Administered Risperidone (Risperdal) 0.5 mg PO BID PILI Stop: 10/29/18 12:14 Last Admin: 09/30/18 08:57 Dose: 0.5 mg Admin: 09/29/18 21:12 Dose: 0.5 mg Admin: 09/29/18 13:04 Dose: 0.5 mg Trazodone HCl (Desyrel) 50 mg PO HS [facility] Stop: 10/29/18 21:59 Last Admin: 09/29/18 21:12 Dose: 50 mg
[2018-09-30] MEDS: TRAZODONE HCL 50 MG TAB PO SCH (21:13)
[2018-10-01] MEDS: risperiDONE 0.5 MG TABLET PO SCH (08:30)
--- NOTE | 2018-10-01 09:13 | Psychiatric Progress Note ---
Date of Service October 01, 2018 Impression / Recommendations Impression Patient's manic state appears to be improving over the course of her hospitalization. She remains somewhat elevated at times, and speech is still rapid and hyperverbal. Improving insight and ability to recognize need for treatment and need to remain on medications. Pt admits to this provider several times that she feels the risperidone has been helpful and denies side effects. We review her concerns with trazodone, and decided to discontinue the medication in favor of hydroxyzine prn insomnia. Risks and benefits reviewed and patient was agreeable with this decision. Reviewed ongoing hypertension, evidence of elevated readings with each presentation to the ED. It is possible that patient's elevated BP is related to anxiety, and with ED presentation likely related to her manic behavior. It is also possible that this is a result of initiation of risperidone; however, this may be unlikely given hypertensive episodes predate regular use of the medication. Pt is agreeable to begin lisinopril 5mg daily starting today, with plan for PCP follow-up. Risks and benefits of this medication reviewed an patient was agreeable. Repeat EKG from this morning reviewed, QTc reduced from 494 to 450. Pt may benefit from titration of risperidone to target ongoing elevated mood, but not done today given patient's concern over starting a new medication. (1) Benita: 09/29 - Restart Risperdal 0.5 mg BID, first dose now - Klonopin 0.5 mg q 4 h prn benita - Obtain supplemental information from - the patient will need psychiatric aftercare - FLP and FBS for monitoring on antipsychotics - The patient will be excused from groups due to the need to limit stimulation - Q 15 min checks for safety - MNPR due to intrusiveness - Rpt Na with AM labs as Na was 132 in the ED - EKG if one has not been obtained. 09/30 - Continue current meds, but consider increase if euphoria continues - Labs WNL - Schedule family meeting - Establish psychiatric aftercare 10/01 - Continue current dosage of risperidone, consider increase over weekend if needed to better target symptoms - Trazodone discontinued in favor of prn use of hydroxyzine 50mg for insomnia - Initiate lisinopril 5mg daily to target elevated blood pressure - no known history of hypertension as an outpatient, but BP often elevated with presentation in the past, even prior to initiation of risperidone. - Repeat EKG completed this AM - QTc decrased from 494 to 450 - Family meeting with , admits to improvement, but denies patient is at baseline - Continue to coordinate aftercare Inventory Assets Strengths: Good family support Needs: To be in psychiatric treatment as an OP Risk Factors Assessment Male: No : Yes Do You Have Access To A Gun?: Yes ( has guns that she reports are locked) Health Problems: No Mental Health Diagnoses: Yes Substance Use Disorders: No Previous Attempt: No Family History of Suicide: No Previous Psychiatric Hospitalization: Yes Hopelessness: No Smoker: No Protective Factors Assessment Scientologist Beliefs: Yes : Yes Responsible for Young Children: No Employed: No Stable Relationships: Yes Supportive Family: Yes Interval History Identifying Information 73 yo female admitted to our unit on a 302 involuntary commitment in a manic state. She was in [facility] last month for a similar manic episode. Chief Complaint "Oh yes, the Risperdal is good, but when I take it at bedtime with that traz-a- something, it's just not good. It's affecting my sleep". Review of Systems Notes Constitutional: headache and "cold flashes" after taking trazodone Cardiovascular: denied Respiratory: denied Gastrointestinal: nausea after taking trazodone Neurological: denied Psychiatric: denies symptoms other than stated above Total of at least 10 systems reviewed, pertinent positives as above and in HPI. Sleep Information Total Hours of Sleep: 5 Sleep Comments: awake at 0515-provided with a mug of fresh water, reminded her she is having fasting blood work this am and i removed the snacks in her room. sleep total between 10/25 and 11 shifts she appeared to be back to sleep on 0600 rounds. Meal Information Percent Meal Consumed - Breakfast: 100 Percent Meal Consumed - Lunch: 100 Percent Meal Consumed - Dinner: 100 Subjective Subjective Patient was seen & assessed and interval progress reviewed with Treatment Team. Staff report the patient has been appearing less manic. She has been improving in insight and presentation; however, remains somewhat elevated and hyperverbal. Pt is to have a family meeting with her this morning. Pt was seen today to assess progress since admission. Pt was willing for to be present for conversation, as he was visiting on the unit. We reviewed reported symptoms of headache and nausea at bedtime. Pt believes it is due to the trazodone, as she has had no issues tolerating the morning dose of risperidone. Symptoms are isolated to bedtime, but patient admits they cause difficulty falling and staying asleep. We reviewed other options for assistance with sleep, which she was thankful for. Reviewed with patient and current response to risperidone, and both are pleased with patient's progress. Pt mentions several times her commitment to "whatever it takes for wellness and health, medications, psychiatrists, therapist, primary care." We reviewed elevated blood pressure, which has been ongoing for this hospitalization, but previous readings are show hypertension as well. We discussed patient's willingness for an antihypertensive agent. She states she is agreeable at this time, but feels her hypertension is related to "anxiety and white coat syndrome." Pt denies SI and does not report concerns aside from medication side effects. Physical Exam Psychiatric Orientation: alert, oriented x 3 and cooperative Apperance: appropriately dressed and appropriately groomed Eye Contact: good eye contact Motor Behavior: steady gait and station and no abnormal motor movements Speech remains rapid and hyperverbal, answers to questions are often extensive Affect: euthymic affect (does not appear depressed, laughing and smiling, interacting well with peers) "oh, I feel so much better, calmer" Thought Process: goal directed thought process and + circumstantial thought process (better able to maintain conversations, some intrusive reverting back to previous discussions) Thought Content: + preoccupation (with medication side effects and "health and wellness") and reality based without delusions Suicidal Thoughts: denies suicidal thoughts Homicidal Thoughts: denies homicidal thoughts Hallucinations: no auditory hallucinations and no visual hallucinations Cognition: recent memory grossly intact, remote memory grossly intact, attention grossly intact and language grossly intact Estimated Intelligence: average estimated intelligence Insight: + impaired insight Judgement: + impaired judgement Vital Signs (Past 24 Hours) Last Vital Signs Temp 36.4 C L 10/01/18 07:06 Pulse 103 H 10/01/18 07:09 Resp 16 10/01/18 07:06 BP 179/92 H 10/01/18 07:09 Pulse Ox 98 09/29/18 12:17 Results & Data Current Inpatient Medications Current Inpatient Medications: Current Inpatient Medications Acetaminophen (Tylenol) 650 mg PO Q4H PRN PRN Reason: Headache or Minor Fever Stop: 10/29/18 08:09 Al Hydrox/Mg Hydrox/Simethicone (Maalox) 30 ml PO Q4H PRN PRN Reason: GI Upset Stop: 10/29/18 08:09 Bismuth Subsalicylate (Kaopectate) 15 ml PO PRN PRN PRN Reason: Loose Stool Stop: 10/29/18 08:09 Clonazepam (Klonopin) 0.5 mg PO Q4H PRN PRN Reason: benita Stop: 10/29/18 12:10 Haloperidol Lactate (Haldol) 5 mg IM Q4 PRN PRN Reason: psychosis or agitation Stop: 10/29/18 08:11 Hydroxyzine HCl (Vistaril) 50 mg PO HSZ PRN PRN Reason: Insomnia Stop: 10/29/18 08:09 Hydroxyzine HCl (Vistaril) 25 mg PO Q4H PRN PRN Reason: Anxiety Stop: 10/29/18 08:09 Lorazepam (Ativan) 1 mg IM Q4 PRN PRN Reason: psychosis or agitation Stop: 10/29/18 08:11 Magnesium Hydroxide (Milk Of Magnesia) 30 ml PO DAILY PRN PRN Reason: Heartburn Stop: 10/29/18 08:09 Risperidone (Risperdal) 0.5 mg PO BID PILI Stop: 10/29/18 12:14 Last Admin: 10/01/18 08:30 Dose: 0.5 mg Sodium Chloride ([place] Nasal) 1 - 2 sprays NA PRN PRN PRN Reason: Nasal Dryness/Congestion Stop: 10/29/18 08:09 Trazodone HCl (Desyrel) 50 mg PO HS PILI Stop: 10/29/18 21:59 Last Admin: 09/30/18 21:13 Dose: 50 mg Post Discharge Appointments Primary Care Physician Name Of Family Doctor: Dr. Ayala, [facility] Date of Appointment with PCP: 10/11/18 Time of Appointment with PCP: 3:50pm Provider Appointment Comment: [address], [place], take along ID & ins card Therapist Name of Therapist: Td Guthrie Counselor Construction Administrative Assistant Name of Construction Administrative Assistant: None CPT Code CPT Code 88196
[2018-10-01] MEDS ORDERED: LISINOPRIL 5 MG TAB PO ONE (12:13)
--- NOTE | 2018-10-01 14:59 | Communication Note ---
Date of Service: October 01, 2018 The patient was seen and evaluated by Dori Lai PA-C. I have reviewed Ms. Lai's findings and plan, and I am in agreement with them. I also met individually with the patient this afternoon in order to assess her current mental status and response to treatment, consider and coordinate any necessary adjustments in her treatment plan, and address issues and concerns that may arise. The patient tells me that she believes that she had a "manic episode" that was precipitated by an inability to sleep for several days, poor oral intake, and dehydration, coupled with various personal stressors. On mental status examination, I found the patient to be pleasant, personable, and cooperative. She was appropriately dressed and groomed, and she maintained fair eye contact. The patient's speech was perhaps mildly pressured, and at times she was difficult to interrupt. She also demonstrated a certain degree of tangential thinking that did not arise to the level of flight of ideas, but gave that flavor. The patient described her mood as "excellent," and her affect is somewhat expansive. there was no evidence of delusional material and the patient's thought content. She spoke repeatedly about her dedication to "stick with the treatment plan," and adhere with all medications and other recommended forms of treatment. She also told me that she was feeling "much, much better" and that she had "learned a great deal." During interview, the patient told me that she has big plans to return to college, and she made statements such as "the skies the limit" when considering her future. The patient does not endorse the presence of any perceptual disturbances. She reports that she is having no suicidal thoughts and has no history of violence directed towards the person or property of others. The patient is fully oriented. Her insight is only fair, but she demonstrates good judgment. I believe the patient still requires psychiatric hospitalization while her medications are being adjusted and her freedom further stabilizes. After interviewing the patient I increased her dose of risperidone to risperidone 0.5 mg in the morning and risperidone 1 mg in the evening.
[2018-10-01] MEDS ORDERED: risperiDONE 1 MG TABLET PO SCH (21:00)
[2018-10-01] MEDS: TRAZODONE HCL 50 MG TAB PO SCH (21:07)
[2018-10-02] MEDS ORDERED: risperiDONE 0.5 MG TABLET PO SCH (09:00)
[2018-10-02] MEDS: LISINOPRIL 5 MG TAB PO SCH (09:22)
[2018-10-02] MEDS ORDERED: clonazePAM 0.5 MG TAB PO PRN (14:09)
[2018-10-02] MEDS ORDERED: risperiDONE 0.5 MG TABLET PO ONE (14:11)
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
[2018-10-02] MEDS: risperiDONE 1 MG TABLET PO SCH (21:39)
[2018-10-02] MEDS: clonazePAM 0.5 MG TAB PO SCH (21:39)
[2018-10-03] MEDS: risperiDONE 1 MG TABLET PO SCH ×2 (09:09→21:45)
[2018-10-03] MEDS: LISINOPRIL 5 MG TAB PO SCH (09:09)
--- NOTE | 2018-10-03 10:29 | Psychiatric Progress Note ---
Date of Service October 03, 2018 Impression / Recommendations Impression Patient appears less manic with slowed speech and more goal-directed thought process this morning however was pressured last evening. She continues to tolerate the Risperdal without EPS and will defer addition of additional mood stabilizing medication for the time being. She agreed to treatment recommendation to stay for potentially a few more days for additional monitoring and to ensure that she is sufficiently stabilized prior to discharge. Reviewed need for repeat hospitalization following insufficient mood stabilization last month at outside hospital. She remains eager for discharge. (1) Freedom: 09/29 - Restart Risperdal 0.5 mg BID, first dose now - Klonopin 0.5 mg q 4 h prn freedom - Obtain supplemental information from - the patient will need psychiatric aftercare - FLP and FBS for monitoring on antipsychotics - The patient will be excused from groups due to the need to limit stimulation - Q 15 min checks for safety - MNPR due to intrusiveness - Rpt Na with AM labs as Na was 132 in the ED - EKG if one has not been obtained. 09/30 - Continue current meds, but consider increase if euphoria continues - Labs WNL - Schedule family meeting - Establish psychiatric aftercare 10/01 - Continue current dosage of risperidone, consider increase over weekend if needed to better target symptoms - Trazodone discontinued in favor of prn use of hydroxyzine 50mg for insomnia - Initiate lisinopril 5mg daily to target elevated blood pressure - no known history of hypertension as an outpatient, but BP often elevated with presentation in the past, even prior to initiation of risperidone. - Repeat EKG completed this AM - QTc decrased from 494 to 450 - Family meeting with , admits to improvement, but denies patient is at baseline - Continue to coordinate aftercare 10/02 - increase risperdal to 1mg po bid with 0.5mg now dose - will change klonopin prn to 0.5mg q8h and schedule 0.5mg qhs standing dose for sleep - d/c trazodone 10/03 -No cogwheeling or rigidity on exam and appears to be tolerating Risperdal titration adequately -Continue Klonopin at bedtime and as needed unchanged -Patient is eager for discharge but agrees to sign in voluntarily upon termination of 302. Reviewed psych intake appt not till 10/25/18 and she is at risk for relapse and need for rehospitalization if discharged prematurely. Inventory Assets Strengths: Good family support Needs: To be in psychiatric treatment as an OP Risk Factors Assessment Male: No : Yes Do You Have Access To A Gun?: Yes ( has guns that she reports are locked) Health Problems: No Mental Health Diagnoses: Yes Substance Use Disorders: No Previous Attempt: No Family History of Suicide: No Previous Psychiatric Hospitalization: Yes Hopelessness: No Smoker: No Protective Factors Assessment Ep[employer] Beliefs: Yes : Yes Responsible for Young Children: No Employed: No Stable Relationships: Yes Supportive Family: Yes Interval History Identifying Information 73 yo female admitted to our unit on a 302 involuntary commitment in a manic state. She was in [facility] last month for a similar manic episode. Chief Complaint "I feel very calm". Review of Systems Notes Denies EPS symptoms Sleep Information Total Hours of Sleep: 5.5 Sleep Comments: pt on q-15 minute checks Meal Information Percent Meal Consumed - Breakfast: 100 Percent Meal Consumed - Lunch: 100 Percent Meal Consumed - Dinner: 100 Subjective Subjective Patient was seen & assessed and interval progress reviewed with treatment team. Patient slept a little better last night getting 5.5 hours. Per staff she did appear pressured in the evening. Some unusual behavior noted such as taking notes during group seemingly in an effort to help others work through their problems. On interview patient reports good sleep and feeling very well this morning. No gastrointestinal upset and she is glad to be off of the trazodone. Denies dizziness. Denies dystonia or change in gait. She describes her thoughts as normal in speed and her speech is notably less hyperverbal. She describes her mood as "happy." She is able to articulate circumstances of admission regarding insomnia, change in thinking, and inability to care for herself at home. "I could have . I know I need this treatment." She expresses eagerness to return home as she worries about the hardship for her to visit her. Physical Exam Psychiatric Orientation: alert, oriented x 3 and cooperative Apperance: appropriately dressed Eye Contact: good eye contact Motor Behavior: steady gait and station; no psychomotor agitation, n EPS, n akathisia and n tremor Speech: normal rate/rhythm/volume of speech; no pressured speech Affect: euthymic affect (Affect is largely euthymic however she does appear disappointed when discussing discharge timeframe) Mood: no depressed mood (Mood good/happy) Thought process is more consistently goal directed today but can still easily become circumstantial to mildly tangential Thought Content: + preoccupation (Focused on discharge timeframe) Suicidal Thoughts: denies suicidal thoughts Homicidal Thoughts: denies homicidal thoughts Hallucinations: no auditory hallucinations and no visual hallucinations Cognition: language grossly intact Estimated Intelligence: average estimated intelligence Insight: + limited insight Judgement: + limited judgement Vital Signs (Past 24 Hours) Last Vital Signs Temp 36.4 C L 10/03/18 06:53 Pulse 94 H 10/03/18 06:54 Resp 16 10/03/18 06:53 BP 141/91 H 10/03/18 06:54 Pulse Ox 98 09/29/18 12:17 Results & Data Current Inpatient Medications Current Inpatient Medications: Current Inpatient Medications Acetaminophen (Tylenol) 650 mg PO Q4H PRN PRN Reason: Headache or Minor Fever Stop: 10/29/18 08:09 Al Hydrox/Mg Hydrox/Simethicone (Maalox) 30 ml PO Q4H PRN PRN Reason: GI Upset Stop: 10/29/18 08:09 Bismuth Subsalicylate (Kaopectate) 15 ml PO PRN PRN PRN Reason: Loose Stool Stop: 10/29/18 08:09 Clonazepam (Klonopin) 0.5 mg PO Q8H PRN PRN Reason: freedom Stop: 10/29/18 12:10 Clonazepam (Klonopin) 0.5 mg PO HS PILI Stop: 11/01/18 21:59 Last Admin: 10/02/18 21:39 Dose: 0.5 mg Haloperidol Lactate (Haldol) 5 mg IM Q4 PRN PRN Reason: psychosis or agitation Stop: 10/29/18 08:11 Hydroxyzine HCl (Vistaril) 50 mg PO HSZ PRN PRN Reason: Insomnia Stop: 10/29/18 08:09 Hydroxyzine HCl (Vistaril) 25 mg PO Q4H PRN PRN Reason: Anxiety Stop: 10/29/18 08:09 Lisinopril (Zestril) 5 mg PO QAM PILI Stop: 11/01/18 08:59 Last Admin: 10/03/18 09:09 Dose: 5 mg Lorazepam (Ativan) 1 mg IM Q4 PRN PRN Reason: psychosis or agitation Stop: 10/29/18 08:11 Magnesium Hydroxide (Milk Of Magnesia) 30 ml PO DAILY PRN PRN Reason: Heartburn Stop: 10/29/18 08:09 Risperidone (Risperdal) 1 mg PO BID PILI Stop: 11/01/18 20:59 Last Admin: 10/03/18 09:09 Dose: 1 mg Sodium Chloride ([place] Nasal) 1 - 2 sprays NA PRN PRN PRN Reason: Nasal Dryness/Congestion Stop: 10/29/18 08:09 Post Discharge Appointments Primary Care Physician Name Of Family Doctor: Dr. 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
[2018-10-03] MEDS ORDERED: LISINOPRIL 5 MG TAB PO ONE (14:20)
[2018-10-03] MEDS: clonazePAM 0.5 MG TAB PO SCH (21:45)
[2018-10-04] MEDS: LISINOPRIL 5 MG TAB PO SCH (07:59)
[2018-10-04] MEDS: risperiDONE 1 MG TABLET PO SCH ×2 (08:49→21:10)
--- NOTE | 2018-10-04 09:11 | Psychiatric Progress Note ---
Date of Service October 04, 2018 Impression / Recommendations Impression Although manic symptoms are improved from admission, the patient is still not at baseline, and demonstrates limited insight into her symptoms and the problems they have caused for her. She is tolerating risperidone well, and using clonazepam as needed for anxiety and freedom. She will have an MRI today to assess for brain abnormalities, given the unusual presentation with very late age of onset of first manic episode. Inpatient treatment remains medically necessary due to the severity of her symptoms and the risk for rapid decompensation if discharged prematurely. (1) Freedom: 09/29 - Restart Risperdal 0.5 mg BID, first dose now - Klonopin 0.5 mg q 4 h prn freedom - Obtain supplemental information from - the patient will need psychiatric aftercare - FLP and FBS for monitoring on antipsychotics - The patient will be excused from groups due to the need to limit stimulation - Q 15 min checks for safety - MNPR due to intrusiveness - Rpt Na with AM labs as Na was 132 in the ED - EKG if one has not been obtained. 09/30 - Continue current meds, but consider increase if euphoria continues - Labs WNL - Schedule family meeting - Establish psychiatric aftercare 10/01 - Continue current dosage of risperidone, consider increase over weekend if needed to better target symptoms - Trazodone discontinued in favor of prn use of hydroxyzine 50mg for insomnia - Initiate lisinopril 5mg daily to target elevated blood pressure - no known history of hypertension as an outpatient, but BP often elevated with presentation in the past, even prior to initiation of risperidone. - Repeat EKG completed this AM - QTc decrased from 494 to 450 - Family meeting with , admits to improvement, but denies patient is at baseline - Continue to coordinate aftercare 10/02 - increase risperdal to 1mg po bid with 0.5mg now dose - will change klonopin prn to 0.5mg q8h and schedule 0.5mg qhs standing dose for sleep - d/c trazodone 10/03 -No cogwheeling or rigidity on exam and appears to be tolerating Risperdal titration adequately -Continue Klonopin at bedtime and as needed unchanged -Patient is eager for discharge but agrees to sign in voluntarily upon termination of 302. Reviewed psych intake appt not till 10/25/18 and she is at risk for relapse and need for rehospitalization if discharged prematurely. 10/04 -Order brain MRI with and without contrast to assess for structural abnormalities, given her unusual presentation and late onset of first manic episode -it showed nonspecific punctate white matter foci, likely age-related or minimal chronic small vessel ischemic change, in no acute intracranial pathology or abnormal enhancement. -Continue risperidone 1 mg twice daily, clonazepam 0.5 mg at bedtime and every 8 hours as needed. Inventory Assets Strengths: Good family support Needs: To be in psychiatric treatment as an OP Risk Factors Assessment Male: No : Yes Do You Have Access To A Gun?: Yes ( has guns that she reports are locked) Health Problems: No Mental Health Diagnoses: Yes Substance Use Disorders: No Previous Attempt: No Family History of Suicide: No Previous Psychiatric Hospitalization: Yes Hopelessness: No Smoker: No Protective Factors Assessment [employer] Beliefs: Yes : Yes Responsible for Young Children: No Employed: No Stable Relationships: Yes Supportive Family: Yes Interval History Identifying Information 73 yo female admitted to our unit on a 302 involuntary commitment in a manic state. She was in [facility] last month for a similar manic episode. She signed in on 10/03/2018, and is now on a 201 voluntary commitment. Chief Complaint "Fantastic!" Review of Systems Notes Denies visual changes, headaches, chest pain, SOB, nausea Sleep Information Total Hours of Sleep: 5 Sleep Comments: pt awoke @0400 and remained awake for about one hr staying in her room. pt with no verbal concerns. pt on q-15 minute checks Meal Information Percent Meal Consumed - Breakfast: 100 Percent Meal Consumed - Lunch: 100 Percent Meal Consumed - Dinner: 100 Subjective Subjective Patient was seen & assessed and interval progress reviewed with Treatment Team. Staff report the patient signed in voluntarily yesterday. She had a good meeting with her , who told staff that she was improved from admission, but still not at baseline. She has been attending and participating in groups, and is hyperverbal and tangential, with disorganized thoughts. She received clonazepam 0.5 mg as needed this morning for anxiety. On my assessment, she was seen with Corrina Fernandez, MS 4. She reports mood is "fantastic, happy, it's a beautiful day for me, mood is 10." She reports anxiety about getting a brain MRI and about her elevated blood pressure. Describes her weekend as "great," and is enjoying the programming/groups. She feels able to "turn any negative thoughts around a make a positive out of it." She denies SI and HI, hallucinations, and paranoia. Sleep and appetite are improved from admission, and she attributes these to "chemical imbalance, because of sleep, dehydration. " She denies racing thoughts, "I am cool, calm, and collected." She says she was brought to the hospital because "my whole body shut down because of chemical imbalance, dehydration, I became manic something, in other words aggressive." She says she was "really upset because I had to follow a protocol from [facility], I was transferred from this psych barros to that psych barros, no that's incorrect, I wasn't in this psych barros....because I had no sleep , I was given a 302 and sent against my wishes to [place]." She says she was "so sick" when she returned home, which she attributes to "strong doses of these medicines, I just can't..." She is unable to state what medications they were (although they are the same medications she is prescribed here, and doses have been increased). She talks about trying to get set up with outpatient physicians, and her struggles with that. Physical Exam Psychiatric Orientation: alert and cooperative Apperance: appropriately dressed, appropriately groomed and appeared stated age thin Eye Contact: good eye contact Motor Behavior: steady gait and station and no abnormal motor movements Overproductive, pressured, rapid at times, normal volume and tone. Affect: + anxious affect elevated affect Mood: no depressed mood "Fantastic!" Thought Process: + tangential thought process and + looseness of associations Thought Content: reality based without delusions Suicidal Thoughts: denies suicidal thoughts Homicidal Thoughts: denies homicidal thoughts Hallucinations: no auditory hallucinations and no visual hallucinations Cognition: attention grossly intact and language grossly intact Estimated Intelligence: consistent with education level Insight: + fair insight Judgement: + fair judgement Vital Signs (Past 24 Hours) Last Vital Signs Temp 36.4 C L 10/04/18 06:46 Pulse 132 H 10/04/18 06:47 Resp 16 10/04/18 06:46 BP 186/97 H 10/04/18 06:47 Pulse Ox 98 02/13/19 12:17 Results & Data Current Inpatient Medications Current Inpatient Medications: Current Inpatient Medications Acetaminophen (Tylenol) 650 mg PO Q4H PRN PRN Reason: Headache or Minor Fever Stop: 10/29/18 08:09 Al Hydrox/Mg Hydrox/Simethicone (Maalox) 30 ml PO Q4H PRN PRN Reason: GI Upset Stop: 10/29/18 08:09 Bismuth Subsalicylate (Kaopectate) 15 ml PO PRN PRN PRN Reason: Loose Stool Stop: 10/29/18 08:09 Clonazepam (Klonopin) 0.5 mg PO Q8H PRN PRN Reason: freedom Stop: 10/29/18 12:10 Last Admin: 10/04/18 08:50 Dose: 0.5 mg Clonazepam (Klonopin) 0.5 mg PO HS PILI Stop: 11/01/18 21:59 Last Admin: 10/03/18 21:45 Dose: 0.5 mg Haloperidol Lactate (Haldol) 5 mg IM Q4 PRN PRN Reason: psychosis or agitation Stop: 10/29/18 08:11 Hydroxyzine HCl (Vistaril) 50 mg PO HSZ PRN PRN Reason: Insomnia Stop: 10/29/18 08:09 Hydroxyzine HCl (Vistaril) 25 mg PO Q4H PRN PRN Reason: Anxiety Stop: 10/29/18 08:09 Lisinopril (Zestril) 10 mg PO QAM PILI Stop: 11/03/18 08:59 Last Admin: 10/04/18 07:59 Dose: 10 mg Lorazepam (Ativan) 1 mg IM Q4 PRN PRN Reason: psychosis or agitation Stop: 10/29/18 08:11 Magnesium Hydroxide (Milk Of Magnesia) 30 ml PO DAILY PRN PRN Reason: Heartburn Stop: 10/29/18 08:09 Risperidone (Risperdal) 1 mg PO BID PILI Stop: 11/01/18 20:59 Last Admin: 10/04/18 08:49 Dose: 1 mg Sodium Chloride ([place] Nasal) 1 - 2 sprays NA PRN PRN PRN Reason: Nasal Dryness/Congestion Stop: 10/29/18 08:09 Post Discharge Appointments Primary Care Physician Name Of Family Doctor: Dr. 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
--- NOTE | 2018-10-04 09:25 | Medical Student Progress Note ---
Date of Service October 04, 2018 Assessment & Plan (1) Freedom: This is a 73-year-old female with a history of bipolar I disorder who was brought to [facility] by family for symptoms of freedom including poor sleep, not caring for herself, elevated mood, and speaking aggressively in the setting of non-adherence to her psychiatric medications. On exam she is easily distractable and has pressured, tangential speech. All of this combined with the inability to care for herself and needing hospitalization culminates in a diagnosis of a manic episode. One point to consider is that although she has a diagnosis of bipolar, she is currently prescribed sertraline, and her dose was increased in July. It is possible that this dose increase may be related to her manic episodes in August and now. 1. Manic episode - Overall improving as she is not aggressive and is more interruptible in her speech. She is still pressured and elated. - Continue Risperdal 1 mg BID - Offer 0.5 mg clonazepam PRN - Stopped sertraline and trazodone. - 09/30/18 FLP and fasting glucose are WNL. - Q15 minute checks for safety. - MRI on 10/04 to evaluate organic causes of freedom. 2. Hypertension - Continue 10 mg lisinopril. - Remains elevated, but she is asymptomatic. - Will follow and consider adding another antihypertensive. 3. Disposition - Coordinate psychiatric aftercare. - Continue hospitalization until freedom is resolved. Renata Domingo is a 73-year-old female with Bipolar I disorder who is admitted for a manic episode. Chayo says she is "fantastic" with a mood of 10/10. Her sleep is improved with the hydroxyzine and she is having no side effects. She is glad to be off of the trazodone. Her appetite is good as well. She says she feels "100% back to her normal self." She is concerned about her blood pressure because she's never had hypertension in the past. She denies visual changes, headaches, chest pain, shortness of breath, or nausea. When asked about the reason for her hospitalization, she says, "my whole body tried to shut down because of insomnia and malnourishment." She is unable to express directly why she was upset and aggressive in the emergency room. She instead describes events from her past hospitalization and the protocol upon her discharge. Physical Exam 2 Vital Signs (Past 24 Hours): Last Vital Signs Temp 36.4 C L 10/04/18 06:46 Pulse 106 H 10/04/18 08:56 Resp 16 10/04/18 06:46 BP 157/95 H 10/04/18 08:56 Pulse Ox 98 09/29/18 12:17 Psychiatric: A+Ox3, euthymic affect Apperance: appropriately dressed and + disheveled (hair is disheveled) Eye Contact: good eye contact Motor Behavior: no abnormal motor movements Speech: + pressured speech (but improved from yesterday, more interruptible) Affect: + elated affect Mood : no depressed mood (elevated mood) Thought Process: + tangential thought process and + looseness of associations Hallucinations: + auditory hallucinations and + visual hallucinations Cognition: + recent memory not intact and + remote memory not intact Estimated Intelligence: consistent with education level (High school graduate) Insight: + limited insight Judgement: + limited judgement Results & Data Medications Administered Clonazepam (Klonopin) 0.5 mg PO Q8H PRN PRN Reason: freedom Stop: 10/29/18 12:10 Last Admin: 10/04/18 08:50 Dose: 0.5 mg Clonazepam (Klonopin) 0.5 mg PO HS PILI Stop: 11/01/18 21:59 Last Admin: 10/03/18 21:45 Dose: 0.5 mg Admin: 10/02/18 21:39 Dose: 0.5 mg Lisinopril (Zestril) 10 mg PO QAM PILI Stop: 11/03/18 08:59 Last Admin: 10/04/18 07:59 Dose: 10 mg Risperidone (Risperdal) 1 mg PO BID PILI Stop: 11/01/18 20:59 Last Admin: 10/04/18 08:49 Dose: 1 mg Admin: 10/03/18 21:45 Dose: 1 mg Admin: 10/03/18 09:09 Dose: 1 mg Admin: 10/02/18 21:39 Dose: 1 mg
[2018-10-04] MEDS ORDERED: GADOBUTROL 65ML VIAL IV PRN (10:07)
--- NOTE | 2018-10-04 10:23 | Magnetic Resonance Report ---
MR brain wo/w con CLINICAL HISTORY: 73 years-old Female presenting with new onset psychiatric symptoms in elderly patie nt, insomnia, malnutrition, dehydration, chemical and balance. TECHNIQUE: Multisequence, multiplanar MR imaging of the brain was performed before and after the admi nistration of intravenous contrast. IV contrast: 4.5 mL of Gadavist. COMPARISON: Noncontrast CT head from 09/07/2018. FINDINGS: Localizer images: Unremarkable. Ventricles and sulci normal in size. Few scattered punctate foci of T2/FLAIR hyperintensity within th e subcortical and periventricular white matter, nonspecific though likely age-related or minimal marketing support assistant peter small vessel ischemic change. No abnormal parenchymal enhancement. No mass effect or midline shift. No restricted diffusion to suggest acute ischemia. No hemorrhage. No extra-axial fluid collection. T2 skull base flow voids preserved. Bone marrow signal intensity within the calvarium within normal l imits. IMPRESSION: 1. Nonspecific punctate white matter foci most likely age-related or minimal chronic small vessel is chemic change. 2. No acute intracranial pathology. No abnormal enhancement. Electronically signed by: Ge Stahl M.D. 10/04/2018 10:22 AM
[2018-10-04] MEDS: clonazePAM 0.5 MG TAB PO SCH (21:10)
[2018-10-05] MEDS: LISINOPRIL 5 MG TAB PO SCH (08:36)
[2018-10-05] MEDS: risperiDONE 1 MG TABLET PO SCH ×2 (08:36→21:14)
--- NOTE | 2018-10-05 10:09 | Psychiatric Progress Note ---
Date of Service October 05, 2018 Impression / Recommendations Impression Manic symptoms continue to improve, although she is still hyperverbal, expansive , grandiose. She is tolerating risperidone well, and using clonazepam as needed for anxiety and freedom. Inpatient treatment remains medically necessary due to the severity of her symptoms and the risk for rapid decompensation if discharged prematurely. (1) Freedom: 09/29 - Restart Risperdal 0.5 mg BID, first dose now - Klonopin 0.5 mg q 4 h prn freedom - Obtain supplemental information from - the patient will need psychiatric aftercare - FLP and FBS for monitoring on antipsychotics - The patient will be excused from groups due to the need to limit stimulation - Q 15 min checks for safety - MNPR due to intrusiveness - Rpt Na with AM labs as Na was 132 in the ED - EKG if one has not been obtained. 09/30 - Continue current meds, but consider increase if euphoria continues - Labs WNL - Schedule family meeting - Establish psychiatric aftercare 10/01 - Continue current dosage of risperidone, consider increase over weekend if needed to better target symptoms - Trazodone discontinued in favor of prn use of hydroxyzine 50mg for insomnia - Initiate lisinopril 5mg daily to target elevated blood pressure - no known history of hypertension as an outpatient, but BP often elevated with presentation in the past, even prior to initiation of risperidone. - Repeat EKG completed this AM - QTc decrased from 494 to 450 - Family meeting with , admits to improvement, but denies patient is at baseline - Continue to coordinate aftercare 10/02 - increase risperdal to 1mg po bid with 0.5mg now dose - will change klonopin prn to 0.5mg q8h and schedule 0.5mg qhs standing dose for sleep - d/c trazodone 10/03 -No cogwheeling or rigidity on exam and appears to be tolerating Risperdal titration adequately -Continue Klonopin at bedtime and as needed unchanged -Patient is eager for discharge but agrees to sign in voluntarily upon termination of 302. Reviewed psych intake appt not till 10/25/18 and she is at risk for relapse and need for rehospitalization if discharged prematurely. 10/04 -Order brain MRI with and without contrast to assess for structural abnormalities, given her unusual presentation and late onset of first manic episode -it showed nonspecific punctate white matter foci, likely age-related or minimal chronic small vessel ischemic change, in no acute intracranial pathology or abnormal enhancement. -Continue risperidone 1 mg twice daily, clonazepam 0.5 mg at bedtime and every 8 hours as needed. 10/05 - Reviewed brain MRI results with patient. - Continue current medications. - brought in home medications, and will review and dispose of discontinued medications prior to discharge, as patient was taking discontinued medications after her recent discharge which likely exacerbated manic symptoms. Inventory Assets Strengths: Good family support Needs: To be in psychiatric treatment as an OP Risk Factors Assessment Male: No : Yes Do You Have Access To A Gun?: Yes ( has guns that she reports are locked) Health Problems: No Mental Health Diagnoses: Yes Substance Use Disorders: No Previous Attempt: No Family History of Suicide: No Previous Psychiatric Hospitalization: Yes Hopelessness: No Smoker: No Protective Factors Assessment Scientology Beliefs: Yes : Yes Responsible for Young Children: No Employed: No Stable Relationships: Yes Supportive Family: Yes Interval History Identifying Information 73 yo female admitted to our unit on a 302 involuntary commitment in a manic state. She was in [facility] last month for a similar manic episode. She signed in on 10/03/2018, and is now on a 201 voluntary commitment. Chief Complaint "I was just getting my exercise stuff on, should I dress up more?" Review of Systems Sleep Information Total Hours of Sleep: 6.75 Sleep Comments: pt on q-15 minute checks Meal Information Percent Meal Consumed - Breakfast: 100 Percent Meal Consumed - Lunch: 100 Percent Meal Consumed - Dinner: 100 Subjective Subjective Patient was seen & assessed and interval progress reviewed with nursing and social work. Staff report she has been social, interacting frequently with others, and participating in unit groups and activities. She became focused on a white van parked outside hospital, stating she was afraid "they might get my ," and asking if there was security at the hospital. Her brought in her home medications. On my assessment today, she reports mood is "fantastic," sleep was "wonderful," and appetite is "excellent." She denies side effects to medications, and reports a good visit with her , noting she is looking forward to going home and being with him. When asked about her statements about the white van, she says "that's a natural normal reaction to anyone who lives in this world. That teresa had rust and looked suspicious, it looked like a person of not good deeds and thoughts occupied that teresa. I'm always concerned about safety and security and those people who want drug money , they could attack people." She says she was concerned that they could attack someone, and just wanted to make sure the hospital had security. She denies concerns for her safety at home, "it's only out in public, like coming out of a grocery store after dark." She also spoke with both sons on the phone which she is happy about. Reviewed her MRI results with her. Physical Exam Mental Examination Thin WF appearing younger than her stated age. Casually and appropriately dressed and groomed. Seated in NAD, good eye contact, and no abnormal movements. Mood is "fantastic," and affect is expansive but stable. Speech is excessive, normal rate, volume and tone. Thoughts are circumferential. Denies SI , HI, AVH and paranoia. Alert and oriented. Insight and judgment are fair. Vital Signs (Past 24 Hours) Last Vital Signs Temp 36.4 C L 10/05/18 06:40 Pulse 98 H 10/05/18 06:41 Resp 16 10/05/18 06:40 BP 144/95 H 10/05/18 06:41 Pulse Ox 98 09/29/18 12:17 Results & Data Current Inpatient Medications Current Inpatient Medications: Current Inpatient Medications Acetaminophen (Tylenol) 650 mg PO Q4H PRN PRN Reason: Headache or Minor Fever Stop: 10/29/18 08:09 Al Hydrox/Mg Hydrox/Simethicone (Maalox) 30 ml PO Q4H PRN PRN Reason: GI Upset Stop: 10/29/18 08:09 Bismuth Subsalicylate (Kaopectate) 15 ml PO PRN PRN PRN Reason: Loose Stool Stop: 10/29/18 08:09 Clonazepam (Klonopin) 0.5 mg PO Q8H PRN PRN Reason: freedom Stop: 10/29/18 12:10 Last Admin: 10/04/18 08:50 Dose: 0.5 mg Clonazepam (Klonopin) 0.5 mg PO HS PILI Stop: 11/01/18 21:59 Last Admin: 10/04/18 21:10 Dose: 0.5 mg Gadobutrol (Gadavist 65ml) 4.5 ml IV ONCE PRN PRN Reason: Interaction Checking Stop: 10/08/18 10:06 Last Admin: 10/04/18 10:08 Dose: 4.5 ml Haloperidol Lactate (Haldol) 5 mg IM Q4 PRN PRN Reason: psychosis or agitation Stop: 10/29/18 08:11 Hydroxyzine HCl (Vistaril) 50 mg PO HSZ PRN PRN Reason: Insomnia Stop: 10/29/18 08:09 Hydroxyzine HCl (Vistaril) 25 mg PO Q4H PRN PRN Reason: Anxiety Stop: 10/29/18 08:09 Lisinopril (Zestril) 10 mg PO QAM PILI Stop: 11/03/18 08:59 Last Admin: 10/05/18 08:36 Dose: 10 mg Lorazepam (Ativan) 1 mg IM Q4 PRN PRN Reason: psychosis or agitation Stop: 10/29/18 08:11 Magnesium Hydroxide (Milk Of Magnesia) 30 ml PO DAILY PRN PRN Reason: Heartburn Stop: 10/29/18 08:09 Risperidone (Risperdal) 1 mg PO BID PILI Stop: 11/01/18 20:59 Last Admin: 10/05/18 08:36 Dose: 1 mg Sodium Chloride ([place] Nasal) 1 - 2 sprays NA PRN PRN PRN Reason: Nasal Dryness/Congestion Stop: 10/29/18 08:09 Post Discharge Appointments Primary Care Physician Name Of Family Doctor: Dr. Ayala, [facility] Date of Appointment with PCP: 10/11/18 Time of Appointment with PCP: 3:50pm Provider Appointment Comment: [facility], [place], take along ID & ins card Psychiatrist Name of Psychiatrist: DEYSI Villasenor LCSW Date of Appointment with Psychiatrist: 10/25/18 Time of Appointment with Psychiatrist: 12:20pm Psychiatric Appointment Comment: must keep this appt prior to being given psychiatry appt Therapist Name of Therapist: DEYSI Villasenor LCSW Therapist's Date of Therapist Appointment: 10/25/18 Time of Therapist Appointment: 12:20 Therapy Appointment Comment: [address], BELLO Arias [employer] Name of Asw/[employer]uw T[employer]ical [employer] Controller: None Contact Information Discharge Discharge Address: [address] [place], [place] [id number] [id number] CPT Code CPT Code 05565
--- NOTE | 2018-10-05 15:15 | Medical Student Progress Note ---
Date of Service October 05, 2018 Assessment & Plan (1) Benita: This is a 73-year-old female with a history of bipolar I disorder who was brought to [facility] by family for symptoms of benita including poor sleep, not caring for herself, elevated mood, and speaking aggressively in the setting of non-adherence to her psychiatric medications. On exam she is easily distractable and has pressured, tangential speech. All of this combined with the inability to care for herself and needing hospitalization culminates in a diagnosis of a manic episode. One point to consider is that although she has a diagnosis of bipolar, she is currently prescribed sertraline, and her dose was increased in July. It is possible that this dose increase may be related to her manic episodes in August and now. 1. Manic episode - Overall improving as she is not aggressive and is more interruptible in her speech. She is still pressured and elated. - Continue Risperdal 1 mg BID - Continue 0.5 mg clonazepam qHS - Stopped sertraline and trazodone. - 09/30/18 FLP and fasting glucose are WNL. - Q15 minute checks for safety. - MRI on 10/04 to evaluate organic causes of benita - no abnormalities seen. - brought home medications into the hospital to be organized and assessed. 2. Hypertension - Continue 10 mg lisinopril. - Trending down to 144/95 today. - Will follow and consider adding another antihypertensive. 3. Disposition - Coordinate psychiatric aftercare. - Continue hospitalization until benita is resolved. Subjective Chayo is a 73-year-old female with Bipolar I disorder who is admitted for a manic episode. Today she her mood is "100% A-OK. It's a 10, 11, 12, 13." Nursing reports 7 hours of sleep and Chayo says her sleep was "solid" tonight with no waking. She says she has normal energy, no racing thoughts, and no complaints. She is enjoying group activities and therapy very much. She denies SI, HI, and hallucinations. Last evening she was paranoid about a white van in the parking lot because it looked like it would belong to someone "who does not have good things in his or her mind." She was concerned that after her left from visiting her would be "attacked for drug money." She denies any other feelings of paranoia. Physical Exam 2 Vital Signs (Past 24 Hours): Last Vital Signs Temp 36.4 C L 10/05/18 06:40 Pulse 98 H 10/05/18 06:41 Resp 16 10/05/18 06:40 BP 144/95 H 10/05/18 06:41 Pulse Ox 98 09/29/18 12:17 Psychiatric: A+Ox3, euthymic affect Apperance: appropriately dressed and + disheveled (hair is disheveled) Eye Contact: good eye contact Motor Behavior: no abnormal motor movements Speech: + pressured speech (but improved from yesterday, more interruptible) Affect: + elated affect Mood : no depressed mood (elevated mood) Thought Process: + tangential thought process Suicidal Thoughts: denies suicidal thoughts Homicidal Thoughts: denies homicidal thoughts Hallucinations: no auditory hallucinations and no visual hallucinations Cognition: recent memory grossly intact; + remote memory not intact Estimated Intelligence: consistent with education level ( High school graduate) Insight: + limited insight Judgement: + limited judgement Results & Data Medications Administered Clonazepam (Klonopin) 0.5 mg PO Q8H PRN PRN Reason: benita Stop: 10/29/18 12:10 Last Admin: 10/04/18 08:50 Dose: 0.5 mg Clonazepam (Klonopin) 0.5 mg PO HS [facility] Stop: 11/01/18 21:59 Last Admin: 10/04/18 21:10 Dose: 0.5 mg Admin: 10/03/18 21:45 Dose: 0.5 mg Admin: 10/02/18 21:39 Dose: 0.5 mg Gadobutrol (Gadavist 65ml) 4.5 ml IV ONCE PRN PRN Reason: Interaction Checking Stop: 10/08/18 10:06 Last Admin: 10/04/18 10:08 Dose: 4.5 ml Lisinopril (Zestril) 10 mg PO QAM PILI Stop: 11/03/18 08:59 Last Admin: 10/05/18 08:36 Dose: 10 mg Admin: 10/04/18 07:59 Dose: 10 mg Risperidone (Risperdal) 1 mg PO BID PILI Stop: 11/01/18 20:59 Last Admin: 10/05/18 08:36 Dose: 1 mg Admin: 10/04/18 21:10 Dose: 1 mg Admin: 10/04/18 08:49 Dose: 1 mg Admin: 10/03/18 21:45 Dose: 1 mg Admin: 10/03/18 09:09 Dose: 1 mg Admin: 10/02/18 21:39 Dose: 1 mg
[2018-10-05] MEDS: clonazePAM 0.5 MG TAB PO SCH (21:15)
[2018-10-06] MEDS: risperiDONE 1 MG TABLET PO SCH (08:53)
[2018-10-06] MEDS: LISINOPRIL 5 MG TAB PO SCH (08:53)
--- NOTE | 2018-10-06 09:35 | Discharge Summary ---
Date of Service October 06, 2018 History of Present Illness The patient is a 73-year-old woman who presented to our emergency department in August with manic symptoms and was sent to [facility] for treatment. She was there from September 09-, diagnosed with bipolar disorder and ISIDRA, and discharged on Risperdal, trazodone, Klonopin and 25 mg of Zoloft. Per the 302 petitioner statement from her son, apparently she has not been sleeping well for the last several days, not eating well and has not taken her Risperdal or trazodone since being discharged from [facility]. She has been argumentative with her family and they felt it necessary to bring her to the emergency department. When they got here she refused to come into the building requiring the assistance of security to get her to come in. She was given Haldol and Ativan in the emergency department and was able to sleep for a few hours. A 302 commitment was granted and she came to our unit late this morning. At the time we see the patient, Marnie is cooperative however is extremely hyperverbal, tangential and circumstantial. She cannot answer any open ended question without getting lost in the details and talking in circles. Early attempts to redirect were met with irritability. She talked at length about her providers including her PCP at [facility] insisting that the doctor at [facility] told her to continue to take the medications that her PCP had told her to. This may have included Zoloft 100 mg daily which may indeed have contributed to the exacerbation of her freedom. Although the 302 petitioner statement indicates that she has not been sleeping, the patient says that she sleeps well. She describes her mood as "good", "happy". When asked to rate her mood on a 0-10 scale she gets lost and distracted from the question and never does provide an number. She denies suicidality saying "I want to live a long time". She denies thoughts to hurt anybody else. She denies racing thoughts however her thoughts move from one subject to the next without taking a breath. She denies anxiety. She denies auditory or visual hallucinations. She describes herself as "at peace with myself". Physical Exam Psychiatric Orientation: alert and cooperative Apperance: appropriately dressed and appropriately groomed Eye Contact: good eye contact Motor Behavior: steady gait and station and no abnormal motor movements hyperverbal, but not pressured Affect: euthymic affect Mood: no depressed mood and no anxious mood Thought Process: + tangential thought process (mildly) Thought Content: reality based without delusions Suicidal Thoughts: denies suicidal thoughts Homicidal Thoughts: denies homicidal thoughts Hallucinations: no auditory hallucinations and no visual hallucinations Cognition: recent memory grossly intact, remote memory grossly intact, attention grossly intact and language grossly intact Estimated Intelligence: average estimated intelligence Insight: + limited insight Judgement: + fair judgement Vital Signs (Past 24 Hours) Last Vital Signs Temp 36.4 C L 10/06/18 06:49 Pulse 106 H 10/06/18 06:50 Resp 16 10/06/18 06:49 BP 156/102 H 10/06/18 06:50 Pulse Ox 98 09/29/18 12:17 Principal Diagnosis Freedom Psychiatric Data The patient has been on our unit for 7 days. She was admitted initially on a 302 involuntary commitment due to freedom, having recently had a hospitalization at [facility] for similar reasons. She was then willing for ongoing treatment and signed in on a voluntary basis. . For complete admission information I refer you to the attached H&P. The patient had been taken Zoloft prior to admission and had been refusing to take the Risperdal ordered at [facility]. We discontinued the antidepressant, concerned that it had activated her, and restarted Risperdal getting to 1 mg BID. Baseline EKG initially revealed a prolobng QTc but repeat 2 days later was WNL. Baseline monitoring labs were also obtained and found to be WNL. She was initially maintained on a MNPR due to intrusiveness, but was after a few days, able to tolerate a roommate. her was involved in her treatment, attending a family meeting and bringing in all of her meds for our review. During his recent visits he believes that she is very close to her baseline. She remained hyperverbal during her stay, but was redirectable and able to be silent for periods of time when needed. MRI of the brain with/without contrast was obtained due to concerns for late onset psychiatric symptoms, which revealed no acute abnormality. Her BP was elevated during her stay and Lisinopril 10 mg was started, but will require ongoing PCP follow up. She denies SI/HI, aud/ vis hallucinations throughout her stay. Risk factors were mitigated through the use of medications, group and individual counseling, family meeting, aftercare planning, safety planning, and destruction of inappropriate medications. Day of Discharge Assessment Today the patient is requesting discharge. She reviews that she is very happy with her stay, glad that her symptoms are improved. I review our theory that anitdepessants activated her and she was glad for an explanation as she couldn' t understand what was happening to her. She feels safe for discharge, continues to deny SI/HI, aud/vis hallucinations. Today she is casually and appropriately dressed although wearing multiple layers of sweaters. Gait and station are WNL. Eye contact is good. Affect is smiling. Speech is of normal volume and tone, but remains hyperverbal. Thoughts are mildly tangential, but reality based. Recent/remote memory intact per conversation. Intelligence estimated to be average. Insight and judgment improved over admission. Transition of Care Transition Of Care Record: was reviewed with the patient Advance Directives Advance Directives Information Provided: Yes Advance Directives: No Mental Health Advance Directive: No Advance Directives on File: No Living Will: No Power of Rustic Fence Builder: No Advance Directives Reason:: Declines as Mental Health Visit. Risk Factors Assessment Male: No : Yes Do You Have Access To A Gun?: Yes ( has guns that she reports are locked) Health Problems: No Mental Health Diagnoses: Yes Substance Use Disorders: No Previous Attempt: No Family History of Suicide: No Previous Psychiatric Hospitalization: Yes Hopelessness: No Smoker: No Protective Factors Assessment Protestant Beliefs: Yes : Yes Responsible for Young Children: No Employed: No Stable Relationships: Yes Supportive Family: Yes Tobacco Cessation at Discharge Tobacco Cessation Medication Prescribed at Discharge: Not Applicable/Non-Smoker Total Time Total Time Spent: Greater Than 30 Minutes Total Time Includes: Examination of the patient, Discharge Planning, Medication Reconciliation and Communication with other providers Discharge Data Lab Results 09/29/18 09/29/18 09/29/18 02:00 02:00 02:00 WBC 8.35 RBC 3.85 L Hgb 12.3 Hct 35.6 L MCV 92.5 MCH 31.9 MCHC 34.6 RDW Std Deviation 45.8 RDW Coeff of Gerson 13.6 Plt Count 271 MPV 9.5 Immature Gran % (Auto) 0.1 Neut % (Auto) 81.8 Lymph % (Auto) 13.8 Rolette % (Auto) 4.1 Eos % (Auto) 0.0 Baso % (Auto) 0.2 Immature Gran # (Auto) 0.01 Neut # (Auto) 6.83 H Lymph # (Auto) 1.15 L Rolette # (Auto) 0.34 Eos # (Auto) 0.00 Baso # (Auto) 0.02 Sodium 129 L Potassium 3.5 Chloride 98 Carbon Dioxide 22 Anion Gap 9.0 BUN 12 Creatinine 0.70 Est Cr Clr Drug Dosing Not Reportable Est GFR ( Amer) 101.0 Est GFR (Non-Af Amer) 87.2 BUN/Creatinine Ratio 16.7 Glucose 150 H Fasting Glucose Calcium 8.7 Total Bilirubin 0.6 AST 27 ALT 35 Alkaline Phosphatase 73 Total Protein 7.3 Albumin 4.0 Globulin 3.3 Albumin/Globulin Ratio 1.2 Triglycerides Cholesterol LDL Cholesterol, Calc VLDL Cholesterol, Calc HDL Cholesterol Cholesterol/HDL Ratio TSH 3.050 Urine Color Urine Appearance Urine pH Ur Specific [place] Urine Protein Urine Glucose (UA) Urine Ketones Urine Blood Urine Nitrite Urine Bilirubin Urine Urobilinogen Ur Leukocyte Esterase Urine WBC (Auto) Urine RBC (Auto) U Hyaline Cast (Auto) U Epithel Cells (Auto) Urine Bacteria (Auto) Salicylates < 1.7 L Urine Opiates Screen Ur Methadone, Qual Acetaminophen < 2 L Urine Barbiturates Ur Phencyclidine (PCP) U Amphetamin/Meth Scrn MDMA (Ecstasy) Screen U Benzodiazepines Scrn Ur Cocaine Metabolite U Marijuana (THC) Screen Ethyl Alcohol mg/dL 09/29/18 09/29/18 09/29/18 02:00 04:45 04:45 WBC RBC Hgb Hct MCV MCH MCHC RDW Std Deviation RDW Coeff of Gerson Plt Count MPV Immature Gran % (Auto) Neut % (Auto) Lymph % (Auto) Rolette % (Auto) Eos % (Auto) Baso % (Auto) Immature Gran # (Auto) Neut # (Auto) Lymph # (Auto) Rolette # (Auto) Eos # (Auto) Baso # (Auto) Sodium 132 L Potassium Chloride Carbon Dioxide Anion Gap BUN Creatinine Est Cr Clr Drug Dosing Est GFR ( Amer) Est GFR (Non-Af Amer) BUN/Creatinine Ratio Glucose Fasting Glucose Calcium Total Bilirubin AST ALT Alkaline Phosphatase Total Protein Albumin Globulin Albumin/Globulin Ratio Triglycerides Cholesterol LDL Cholesterol, Calc VLDL Cholesterol, Calc HDL Cholesterol Cholesterol/HDL Ratio TSH Urine Color Urine Appearance Urine pH Ur Specific [place] Urine Protein Urine Glucose (UA) Urine Ketones Urine Blood Urine Nitrite Urine Bilirubin Urine Urobilinogen Ur Leukocyte Esterase Urine WBC (Auto) Urine RBC (Auto) U Hyaline Cast (Auto) U Epithel Cells (Auto) Urine Bacteria (Auto) Salicylates Urine Opiates Screen Neg Ur Methadone, Qual Neg Acetaminophen Urine Barbiturates Neg Ur Phencyclidine (PCP) Neg U Amphetamin/Meth Scrn Neg MDMA (Ecstasy) Screen Neg U Benzodiazepines Scrn Neg Ur Cocaine Metabolite Neg U Marijuana (THC) Screen Neg Ethyl Alcohol mg/dL < 3.0 09/29/18 09/30/18 04:45 08:13 WBC RBC Hgb Hct MCV MCH MCHC RDW Std Deviation RDW Coeff of Gerson Plt Count MPV Immature Gran % (Auto) Neut % (Auto) Lymph % (Auto) Rolette % (Auto) Eos % (Auto) Baso % (Auto) Immature Gran # (Auto) Neut # (Auto) Lymph # (Auto) Rolette # (Auto) Eos # (Auto) Baso # (Auto) Sodium 139 D Potassium Chloride Carbon Dioxide Anion Gap BUN Creatinine Est Cr Clr Drug Dosing Est GFR ( Amer) Est GFR (Non-Af Amer) BUN/Creatinine Ratio Glucose Fasting Glucose 93 Calcium Total Bilirubin AST ALT Alkaline Phosphatase Total Protein Albumin Globulin Albumin/Globulin Ratio Triglycerides 52 Cholesterol 154 LDL Cholesterol, Calc 64 VLDL Cholesterol, Calc 10 HDL Cholesterol 80 Cholesterol/HDL Ratio 2 TSH Urine Color Yellow Urine Appearance Clear Urine pH 5.5 Ur Specific [place] 1.014 Urine Protein Negative Urine Glucose (UA) Negative Urine Ketones Negative Urine Blood 1+ H Urine Nitrite Negative Urine Bilirubin Negative Urine Urobilinogen Negative Ur Leukocyte Esterase 2+ H Urine WBC (Auto) 5-10 H Urine RBC (Auto) 0-4 U Hyaline Cast (Auto) 1-5 U Epithel Cells (Auto) 20-30 H Urine Bacteria (Auto) Negative Salicylates Urine Opiates Screen Ur Methadone, Qual Acetaminophen Urine Barbiturates Ur Phencyclidine (PCP) U Amphetamin/Meth Scrn MDMA (Ecstasy) Screen U Benzodiazepines Scrn Ur Cocaine Metabolite U Marijuana (THC) Screen Ethyl Alcohol mg/dL Hospital Course (1) Freedom: 09/29 - Restart Risperdal 0.5 mg BID, first dose now - Klonopin 0.5 mg q 4 h prn freedom - Obtain supplemental information from - the patient will need psychiatric aftercare - FLP and FBS for monitoring on antipsychotics - The patient will be excused from groups due to the need to limit stimulation - Q 15 min checks for safety - MNPR due to intrusiveness - Rpt Na with AM labs as Na was 132 in the ED - EKG if one has not been obtained. 09/30 - Continue current meds, but consider increase if euphoria continues - Labs WNL - Schedule family meeting - Establish psychiatric aftercare 10/01 - Continue current dosage of risperidone, consider increase over weekend if needed to better target symptoms - Trazodone discontinued in favor of prn use of hydroxyzine 50mg for insomnia - Initiate lisinopril 5mg daily to target elevated blood pressure - no known history of hypertension as an outpatient, but BP often elevated with presentation in the past, even prior to initiation of risperidone. - Repeat EKG completed this AM - QTc decrased from 494 to 450 - Family meeting with , admits to improvement, but denies patient is at baseline - Continue to coordinate aftercare 10/02 - increase risperdal to 1mg po bid with 0.5mg now dose - will change klonopin prn to 0.5mg q8h and schedule 0.5mg qhs standing dose for sleep - d/c trazodone 10/03 -No cogwheeling or rigidity on exam and appears to be tolerating Risperdal titration adequately -Continue Klonopin at bedtime and as needed unchanged -Patient is eager for discharge but agrees to sign in voluntarily upon termination of 302. Reviewed psych intake appt not till 10/25/18 and she is at risk for relapse and need for rehospitalization if discharged prematurely. 10/04 -Order brain MRI with and without contrast to assess for structural abnormalities, given her unusual presentation and late onset of first manic episode -it showed nonspecific punctate white matter foci, likely age-related or minimal chronic small vessel ischemic change, in no acute intracranial pathology or abnormal enhancement. -Continue risperidone 1 mg twice daily, clonazepam 0.5 mg at bedtime and every 8 hours as needed. 10/05 - Reviewed brain MRI results with patient. - Continue current medications. - brought in home medications, and will review and dispose of discontinued medications prior to discharge, as patient was taking discontinued medications after her recent discharge which likely exacerbated manic symptoms. Post Discharge Appointments Primary Care Physician Name Of Family Doctor: Dr. Ayala, [facility] Date of Appointment with PCP: 10/11/18 Time of Appointment with PCP: 3:50pm Provider Appointment Comment: [address] [facility] [employer], [place], take along ID & ins card Primary Care Release of Information: Obtained, Reviewed and Signed Psychiatrist Name of Psychiatrist: DEYSI Intake-Trinity Villasenor LCSW Date of Appointment with Psychiatrist: 10/25/18 Time of Appointment with Psychiatrist: 12:20pm Psychiatric Appointment Comment: must keep this appt prior to being given psychiatry appt Psychiatrist Release of Information: Obtained, Reviewed and Signed Therapist Name of Therapist: DEYSI Villasenor LCSW Therapist's Date of Therapist Appointment: 10/25/18 Time of Therapist Appointment: 12:20 Therapy Appointment Comment: [address], [place] Therapist Release of Information: Obtained, Reviewed and Signed Middle School Guidance Counselor Name of Middle School Guidance Counselor: None Smoking Cessation Counseling Tobacco Cessation Medication Prescribed at Discharge: Not Applicable/Non-Smoker Contact Information Discharge Discharge Address: [address] [place] [id number] Discharge Plan Discharge Items Reason For Visit: HAS NOT SLEPT FOR SEVERAL DAYS,NOT TAKING MEDS Discharge Diagnosis: Freedom Discharge Goals: Decrease discomfort, Improve disease control and Improve function Activity: Resume your previous activity Non-emergency contact: Primary Care Provider, Psychiatrist and Therapist Call non-emergency contact if: you have any medication questions and your symptoms worsen Diet: Regular Addtl Provider Instructions: SPECIAL CARE INSTRUCTIONS: 1. Follow through with your scheduled aftercare appointments. If unable to keep an appointment, please call to reschedule. 2. Take your medication only as prescribed. Medication should not be changed or stopped without the approval of your doctor. In the event of worsening symptoms or concerns about side effects, contact your doctor immediately. 3. Utilize new healthy coping skills, anger management skills, and stress management skills learned during your hospitalization. Journal feelings and process them with a support person. Identify stressors or situations that may result in relapse, deterioration or inappropriate behaviors and develop a plan to deal with those issues. 4. If your coping skills are ineffective and you are in crisis, contact your outpatient providers for direction. If unable to reach your providers, please call the CAN HELP LINE AT or go to the closest Emergency Room. 5. Avoid alcohol and un-prescribed drugs. 6. You have been provided with the Mental Health Advance Directives Pamphlet for your review. AFTERCARE APPOINTMENTS: * Please call your insurance company prior to your scheduled appointment to confirm your aftercare providers are covered. Take your insurance information to your appointments. WHO TO CALL AND WHEN: Medical Emergencies: For questions or emergencies related to your hospital stay, please contact the Inpatient Behavioral Health Unit at [phone]. A straightening press operator is on-call 09/03 for the Behavioral Health Unit for emergencies At any time you feel your situation is an emergency, you may also call 911 immediately. Your Doctors Instructions noted above were prepared by provider MARVIN Barbour. Prescriptions: New lisinopril [Zestril] 5 mg Tablet 10 mg PO QAM Qty: 30 RF: 0 risperidone 1 mg Tablet 1 mg PO BID Qty: 60 RF: 0 Continue Discontinued trazodone 50 mg Tablet 50 mg PO HS RF: 0 sertraline 25 mg Tablet 25 mg PO DAILY RF: 0 Stand-Alone Forms: My [facility] Admission Data Admit Date/Time: 09/29/18 08:10 Attending Provider: Marine Blanca Admit Provider: Marine Blanca Primary Care Provider: Donna Lucia Service: Psychiatry Other Interventions: PSY Interdisciplinary Discharge Planning Last Done: 10/06/18 09:21 Pending Studies at Discharge: No
[2018-10-06] MEDS ORDERED: DESTROY THIS MEDICATION ONE (10:10)
== END 2018-10-06 11:23 | disposition home or self-care (01) | DRG 885 ==
LOC: ED 01:16 → 3S 08:10

== ENCOUNTER 2019-03-30 12:11 | Inpatient (IN) ==
[2019-03-30] MEDS ORDERED: LORazepam 2 MG/ML VIAL (IM USE) IM STA (12:53)
[2019-03-30 14:16] LABS: Appearance Urine Cloudy (Clear); Bacteria Urine Automated Negative (Negative); Bilirubin Urine Negative (Negative); Blood Urine 1+ (Negative); Color Urine Dark Yellow; Epithelial Cell Urine Auto >30 /lpf (0-5); Glucose Urine UA Negative (Negative); Ketones Urine Trace (Negative); Leukocyte Esterase Urine Trace (Negative); Nitrite Urine Negative (Negative); Protein Urine 1+ (Negative); RBC Urine Automated 0-4 /hpf (0-4); Urobilinogen Urine Negative (Negative); pH Urine 5.5 (4.5-7.5)
[2019-03-30 14:17] LABS: Basophils # (auto) 0.04 K/uL (0-0.2); Basophils % (auto) 0.3 %; Eosinophils # (auto) 0.05 K/uL (0-0.5); Eosinophils % (auto) 0.4 %; Hematocrit (blood only) 37.7 % (37-47); Hemoglobin 13.2 g/dL (12.0-16.0); Immature Granulocytes # (auto) 0.09 K/uL (0.00-0.02); Immature Granulocytes % (auto) 0.8 %; Lymphocytes % (auto) 7.8 %; Mean Corpuscular Hemoglobin 31.7 pg (25-34); Mean Corpuscular Volume 90.6 fL (80-100); Mean Platelet Volume 9.6 fL (7.4-10.4); Monocytes # (auto) 0.76 K/uL (0.11-0.59); Monocytes % (auto) 6.6 %; Neutrophils # (auto) 9.66 K/uL (1.4-6.5); Neutrophils % (auto) 84.1 %; Platelet Count 330 K/uL (130-400); RDW Coefficient of Variation 12.9 % (11.5-14.5); RDW Standard Deviation 42.9 fL (36.4-46.3); Red Blood Count 4.16 M/uL (4.2-5.4)
[2019-03-30 14:39] LABS: Acetaminophen < 2 ug/ml (10-30); Albumin Level 3.5 gm/dl (3.4-5.0); BUN Creatinine Ratio 16.9 (10-20); Calcium 8.8 mg/dl (8.5-10.1); Creatinine Clr Calc Pharmacy 53.5 ml/min; Est GFR (African American) 87.3; Est GFR (Non-African American) 75.3; Potassium 3.6 mmol/L (3.5-5.1); Salicylate < 1.7 mg/dl (2.8-20)
[2019-03-30 14:55] LABS: Cast Urine Automated 0 /lpf (0-5); Mucus Urine Present (None Prsent)
[2019-03-30 15:18] LABS: Albumin Globulin Ratio 0.8 (0.9-2); Bilirubin,Total 0.6 mg/dl (0.2-1); Globulin 4.5 gm/dl (2.5-4.0); Thyroid Stimulating Hormone 1.79 uIu/ml (0.300-4.500)
[2019-03-30] MEDS ORDERED: SODIUM CHLORIDE 0.9% 1000ML 1,000 ML IV ONE (15:51)
[2019-03-30 16:01] LABS: Amphetamines+Metham, Urine Neg (Neg); Barbiturates, Urine Neg (Neg); Benzodiazepine, Urine Neg (Neg); Cocaine, Urine Neg (Neg); MDMA (Ecstacy), Urine Neg (Neg); Methadone, Urine Neg (Neg); Opiate, Urine Neg (Neg); Phencyclidine, Urine Neg (Neg)
[2019-03-30 17:40] LABS: BUN Creatinine Ratio 21.4 (10-20); Calcium 7.7 mg/dl (8.5-10.1); Creatinine Clr Calc Pharmacy 86.3 ml/min; Est GFR (African American) 113.6; Potassium 3.1 mmol/L (3.5-5.1)
--- NOTE | 2019-03-30 18:43 | Emergency Department Note ---
Entered by Yocasta Hughes acting as a scribe for Emeterio Huber History of Present Illness General Chief complaint: Anxiety Stated complaint: ANXIOUS - SHAKY - THERAPIST REF Time Seen by Provider: 03/30/19 12:27 Source: patient and other (psych correctional casework specialist) History of Present Illness Onset (ago): day(s) (today) Location: head Pain Consistency: + other (episode) Quality: + other (anxiety) Associated symptoms: + denies other symptoms (SI, HI, feeling guilty, being excessively sad, ), + loss of appetite and + other (difficulty sleeping, less energy, difficulty concentrating, loss of interest in things that previously gave her ty) The patient is a 73 year old female who presents to the Emergency Room with complaints of an episode of anxiety starting today. Per the psych correctional casework specialist, the patient was here with the same symptoms 10 days ago, but didnt want to come inpatient then. She notes that she does now. The patient states that she is so anxious and overwhelmed by everything. She notes that there hasnt been anything to trigger it, but she is worried to . The patient notes that because of it she has had difficulty sleeping, less energy, difficulty concentrating, and loss of interest in things that previously gave her ty. The patient complains of loss of appetite. She notes that she doesnt think she could give a urine sample even if she tried. The patients notes that she has not been noelle arora very much at all and believes that she may be dehydrated. The patient denies SI, HI, feeling guilty, being excessively sad, access to weapons, use of alcohol, use of drugs, and ever being a smoker. Home Medications Home Medications Medication Instructions Recorded Confirmed Type clonazepam 0.5 mg PO QAM 03/30/19 03/30/19 History hydralazine 25 mg PO QPM 03/30/19 03/30/19 History lisinopril 10 mg PO DAILY 03/30/19 03/30/19 History olanzapine 15 mg PO QPM 03/30/19 03/30/19 History sertraline 50 mg PO QAM 03/30/19 03/30/19 History Allergies Allergy/AdvReac Type Severity Reaction Status Date / Time Penicillins Allergy Unknown rash Verified 03/30/19 16:17 Past Med/Surg History Medical History Bipolar 1 disorder with moderate freedom Mental health problem Surgical History H/O: hysterectomy (~1979) Family History Other Cancer Social History Preferred Language: Emirati Communication Ability: Impaired 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 and A total of 10 systems reviewed and were otherwise negative Physical Exam Vital Signs Vital Signs - 24 hr 03/30/19 12:13 03/30/19 12:19 03/30/19 14:11 Temperature 36.8 C Temperature Source Oral Sepsis Recent Fever Within 48 Hours No Sepsis New/Unexplained Change in Mental Status No Sepsis Action Taken by Nursing No Action Required Pulse Rate 128 H Pulse Rate [Finger] 119 H Pulse Rhythm Regular Pulse Rhythm [Finger] Pulse Strength Normal Pulse Strength [Finger] Respiratory Rate 20 19 Respiratory Effort / Characteristics Non-Labored Respiratory Depth Normal Respiratory Pattern Regular Blood Pressure 119/81 Blood Pressure [Left Arm] 112/62 Blood Pressure Mean 93 Blood Pressure Mean [Left Arm] 78 Blood Pressure Position Sitting Blood Pressure Position [Left Arm] Pulse Oximetry 94 94 95 Oxygen Delivery Method Room Air Room Air Room Air 03/30/19 16:00 03/30/19 17:58 03/30/19 18:29 Temperature Temperature Source Sepsis Recent Fever Within 48 Hours Sepsis New/Unexplained Change in Mental Status Sepsis Action Taken by Nursing Pulse Rate Pulse Rate [Finger] 89 92 H 86 Pulse Rhythm Pulse Rhythm [Finger] Regular Regular Regular Pulse Strength Pulse Strength [Finger] Normal Normal Normal Respiratory Rate 20 20 20 Respiratory Effort / Characteristics Non-Labored Spontaneous Non-Labored Spontaneous Non-Labored Spontaneous Respiratory Depth Normal Normal Normal Respiratory Pattern Blood Pressure Blood Pressure [Left Arm] 186/97 H 185/98 H 164/90 H Blood Pressure Mean Blood Pressure Mean [Left Arm] 126 127 114 Blood Pressure Position Blood Pressure Position [Left Arm] Lying Lying Lying Pulse Oximetry 98 99 97 Oxygen Delivery Method Room Air Room Air Room Air 03/30/19 19:25 Temperature Temperature Source Sepsis Recent Fever Within 48 Hours Sepsis New/Unexplained Change in Mental Status Sepsis Action Taken by Nursing Pulse Rate 94 H Pulse Rate [Finger] Pulse Rhythm Pulse Rhythm [Finger] Pulse Strength Pulse Strength [Finger] Respiratory Rate 19 Respiratory Effort / Characteristics Respiratory Depth Respiratory Pattern Blood Pressure 155/72 H Blood Pressure [Left Arm] Blood Pressure Mean Blood Pressure Mean [Left Arm] Blood Pressure Position Blood Pressure Position [Left Arm] Pulse Oximetry 98 Oxygen Delivery Method Room Air GENERAL: She is oriented to person, place, and time. She appears well-developed and well-nourished. She does not appear distressed. HENT: Exam performed. \\[id number] Head: Normocephalic and atraumatic. \\[id number] Right Ear: External ear normal. No mastoid tenderness. \\[id number] Left Ear: External ear normal. No mastoid tenderness. \\[id number] Mouth/Throat: The oropharynx is clear and moist. No trismus in the jaw. No dental abscesses or uvula swelling. No oropharyngeal exudate or tonsillar abscesses. EYES: Conjunctivae and EOM are normal. Pupils are equal, round, and reactive to light. Right eye exhibits no discharge. Left eye exhibits no discharge. No scleral icterus. NECK: Normal range of motion. Neck supple. No JVD present. No spinous process tenderness present. No carotid bruit present. No rigidity. No tracheal deviation and normal range of motion present. No Brudzinski's sign and no Kernig's sign noted. CV: Normal rate, regular rhythm, normal heart sounds and intact distal pulses. There is no peripheral edema. Palpable radial pulses bue. PULM/CHEST: Effort normal and breath sounds normal. No respiratory distress. No stridor. She has no wheezes. She has no rales. Chest Wall: She exhibits no tenderness. ABD: The abdomen is soft. Bowel sounds are normal. She has no distension. No mass is present. There is no tenderness. There is no rebound, no guarding, no Hodges's sign and no tenderness at McBurney's point. Rovsig negative MUSC/SKEL: Normal range of motion. There is no peripheral edema, tenderness or deformity. LYMPH: No cervical adenopathy. NEURO: She is alert and oriented to person, place, and time. She has normal strength. No cranial nerve deficit or sensory deficit. Coordination and gait normal. GCS eye subscore is 4. GCS verbal subscore is 5. GCS motor subscore is 6. cerbellar tests wnl. SKIN: Skin is warm and dry. She is not diaphoretic. PSYCH: She is anxious appearing. She is repeatedly saying" Aletha, please help me and get me a room upstairs." Denies SI and HI. Course 1250: Past medical records reviewed. The patient was evaluated in room A5. A complete history and physical exam was performed. 1554: Labs show a sodium of 129. The patient will be give a liter of fluid. We will then recheck her sodium. If her sodium continues to be below 130, she will be admitted medically, but if it is greater than 130, she will be cleared for psychiatric placement. 1704: The patient finished her fluids. We are going to recheck her renal profile and see if her sodium has improved. 1758: The patient's repeat sodium after 1L of fluid is 133. The patient is now medically cleared and will be evaluated by psych for placement. 1923: The patient was accepted for admission to [address] [place] [address]. Administered Medications Discontinued Medications Sodium Chloride (Nss 1000ml) 1,000 mls @ 999 mls/hr IV .[id number] ONE Stop: 03/30/19 16:51 Last Infusion: 03/30/19 16:32 Dose: 0 mls/hr Documented by: [id number] Admin: 03/30/19 16:04 Dose: 999 mls/hr Documented by: [id number] Lorazepam (Ativan) 1 mg IM NOW STA Stop: 03/30/19 12:54 Last Admin: 03/30/19 13:03 Dose: 1 mg Documented by: [id number] Medical Decision Making Medical Records Attestation: I reviewed the patient's medical records. Home Medications Current Medication List: was personally reviewed by me Laboratory Data Attestation: I reviewed the patient's lab results. Result diagrams: 03/30/19 14:04 03/30/19 17:06 Lab Results 03/30/19 03/30/19 03/30/19 Range/Units 13:50 13:50 14:04 WBC 11.50 H (4.8-10.8) K/uL RBC 4.16 L (4.2-5.4) M/uL Hgb 13.2 (12.0-16.0) g/dL Hct 37.7 (37-47) % MCV 90.6 (80-100) fL MCH 31.7 (25-34) pg MCHC 35.0 (32-36) g/dL RDW Std Deviation 42.9 (36.4-46.3) fL RDW Coeff of Gerson 12.9 (11.5-14.5) % Plt Count 330 (130-400) K/uL MPV 9.6 (7.4-10.4) fL Immature Gran % (Auto) 0.8 % Neut % (Auto) 84.1 % Lymph % (Auto) 7.8 % [place] % (Auto) 6.6 % Eos % (Auto) 0.4 % Baso % (Auto) 0.3 % Immature Gran # (Auto) 0.09 H (0.00-0.02) K/uL Neut # (Auto) 9.66 H (1.4-6.5) K/uL Lymph # (Auto) 0.90 L (1.2-3.4) K/uL [place] # (Auto) 0.76 H (0.11-0.59) K/uL Eos # (Auto) 0.05 (0-0.5) K/uL Baso # (Auto) 0.04 (0-0.2) K/uL Sodium (136-145) mmol/L Potassium (3.5-5.1) mmol/L Chloride (98-107) mmol/L Carbon Dioxide (21-32) mmol/L Anion Gap (3-11) BUN (7-18) mg/dl Creatinine (0.6-1.2) mg/dl Est Cr Clr Drug Dosing ml/min Est GFR ( Amer) Est GFR (Non-Af Amer) BUN/Creatinine Ratio (10-20) Glucose (70-99) mg/dl Calcium (8.5-10.1) mg/dl Total Bilirubin (0.2-1) mg/dl AST (15-37) U/L ALT (12-78) U/L Alkaline Phosphatase (45-117) U/L Total Protein (6.4-8.2) gm/dl Albumin (3.4-5.0) gm/dl Globulin (2.5-4.0) gm/dl Albumin/Globulin Ratio (0.9-2) TSH (0.300-4.500) uIu/ml Specimen Hemolysis Urine Color Dark Yellow Urine Appearance Cloudy A (Clear) Urine pH 5.5 (4.5-7.5) Ur Specific [place] 1.020 (1.000-1.030) Urine Protein 1+ H (Negative) Urine Glucose (UA) Negative (Negative) Urine Ketones Trace H (Negative) Urine Blood 1+ H (Negative) Urine Nitrite Negative (Negative) Urine Bilirubin Negative (Negative) Urine Urobilinogen Negative (Negative) Ur Leukocyte Esterase Trace H (Negative) Urine WBC (Auto) 5-10 H (0-5) /hpf Urine RBC (Auto) 0-4 (0-4) /hpf U Hyaline Cast (Auto) 0 (0-5) /lpf U Epithel Cells (Auto) >30 H (0-5) /lpf Urine Bacteria (Auto) Negative (Negative) Ur Renal Epithelial Cell Not Reportable Urine Mucus Present A (None Prsent) Salicylates (2.8-20) mg/dl Urine Opiates Screen Neg (Neg) Ur Methadone, Qual Neg (Neg) Acetaminophen (10-30) ug/ml Urine Barbiturates Neg (Neg) Ur Phencyclidine (PCP) Neg (Neg) U Amphetamin/Meth Scrn Neg (Neg) MDMA (Ecstasy) Screen Neg (Neg) U Benzodiazepines Scrn Neg (Neg) Ur Cocaine Metabolite Neg (Neg) U Marijuana (THC) Screen Neg (Neg) Ethyl Alcohol mg/dL (0-3) mg/dl 03/30/19 03/30/19 03/30/19 Range/Units 14:04 14:04 14:04 WBC (4.8-10.8) K/uL RBC (4.2-5.4) M/uL Hgb (12.0-16.0) g/dL Hct (37-47) % MCV (80-100) fL MCH (25-34) pg MCHC (32-36) g/dL RDW Std Deviation (36.4-46.3) fL RDW Coeff of Gerson (11.5-14.5) % Plt Count (130-400) K/uL MPV (7.4-10.4) fL Immature Gran % (Auto) % Neut % (Auto) % Lymph % (Auto) % [place] % (Auto) % Eos % (Auto) % Baso % (Auto) % Immature Gran # (Auto) (0.00-0.02) K/uL Neut # (Auto) (1.4-6.5) K/uL Lymph # (Auto) (1.2-3.4) K/uL [place] # (Auto) (0.11-0.59) K/uL Eos # (Auto) (0-0.5) K/uL Baso # (Auto) (0-0.2) K/uL Sodium 129 L (136-145) mmol/L Potassium 3.6 (3.5-5.1) mmol/L Chloride 91 L (98-107) mmol/L Carbon Dioxide 28 (21-32) mmol/L Anion Gap 10.0 (3-11) BUN 13 (7-18) mg/dl Creatinine 0.79 (0.6-1.2) mg/dl Est Cr Clr Drug Dosing 53.5 ml/min Est GFR ( Amer) 87.3 Est GFR (Non-Af Amer) 75.3 BUN/Creatinine Ratio 16.9 (10-20) Glucose 124 H (70-99) mg/dl Calcium 8.8 (8.5-10.1) mg/dl Total Bilirubin 0.6 (0.2-1) mg/dl AST 21 (15-37) U/L ALT 26 (12-78) U/L Alkaline Phosphatase 108 (45-117) U/L Total Protein 8.0 (6.4-8.2) gm/dl Albumin 3.5 (3.4-5.0) gm/dl Globulin 4.5 H (2.5-4.0) gm/dl Albumin/Globulin Ratio 0.8 L (0.9-2) TSH 1.790 (0.300-4.500) uIu/ml Specimen Hemolysis Urine Color Urine Appearance (Clear) Urine pH (4.5-7.5) Ur Specific [place] (1.000-1.030) Urine Protein (Negative) Urine Glucose (UA) (Negative) Urine Ketones (Negative) Urine Blood (Negative) Urine Nitrite (Negative) Urine Bilirubin (Negative) Urine Urobilinogen (Negative) Ur Leukocyte Esterase (Negative) Urine WBC (Auto) (0-5) /hpf Urine RBC (Auto) (0-4) /hpf U Hyaline Cast (Auto) (0-5) /lpf U Epithel Cells (Auto) (0-5) /lpf Urine Bacteria (Auto) (Negative) Ur Renal Epithelial Cell Urine Mucus (None Prsent) Salicylates < 1.7 L (2.8-20) mg/dl Urine Opiates Screen (Neg) Ur Methadone, Qual (Neg) Acetaminophen < 2 L (10-30) ug/ml Urine Barbiturates (Neg) Ur Phencyclidine (PCP) (Neg) U Amphetamin/Meth Scrn (Neg) MDMA (Ecstasy) Screen (Neg) U Benzodiazepines Scrn (Neg) Ur Cocaine Metabolite (Neg) U Marijuana (THC) Screen (Neg) Ethyl Alcohol mg/dL < 3.0 (0-3) mg/dl 03/30/19 Range/Units 17:06 WBC (4.8-10.8) K/uL RBC (4.2-5.4) M/uL Hgb (12.0-16.0) g/dL Hct (37-47) % MCV (80-100) fL MCH (25-34) pg MCHC (32-36) g/dL RDW Std Deviation (36.4-46.3) fL RDW Coeff of Gerson (11.5-14.5) % Plt Count (130-400) K/uL MPV (7.4-10.4) fL Immature Gran % (Auto) % Neut % (Auto) % Lymph % (Auto) % [place] % (Auto) % Eos % (Auto) % Baso % (Auto) % Immature Gran # (Auto) (0.00-0.02) K/uL Neut # (Auto) (1.4-6.5) K/uL Lymph # (Auto) (1.2-3.4) K/uL [place] # (Auto) (0.11-0.59) K/uL Eos # (Auto) (0-0.5) K/uL Baso # (Auto) (0-0.2) K/uL Sodium 133 L (136-145) mmol/L Potassium 3.1 L (3.5-5.1) mmol/L Chloride 97 L (98-107) mmol/L Carbon Dioxide 27 (21-32) mmol/L Anion Gap 9.0 (3-11) BUN 11 (7-18) mg/dl Creatinine 0.49 L D (0.6-1.2) mg/dl Est Cr Clr Drug Dosing 86.3 ml/min Est GFR ( Amer) 113.6 Est GFR (Non-Af Amer) 98.0 BUN/Creatinine Ratio 21.4 H (10-20) Glucose 97 (70-99) mg/dl Calcium 7.7 L (8.5-10.1) mg/dl Total Bilirubin (0.2-1) mg/dl AST (15-37) U/L ALT (12-78) U/L Alkaline Phosphatase (45-117) U/L Total Protein (6.4-8.2) gm/dl Albumin (3.4-5.0) gm/dl Globulin (2.5-4.0) gm/dl Albumin/Globulin Ratio (0.9-2) TSH (0.300-4.500) uIu/ml Specimen Hemolysis Urine Color Urine Appearance (Clear) Urine pH (4.5-7.5) Ur Specific [place] (1.000-1.030) Urine Protein (Negative) Urine Glucose (UA) (Negative) Urine Ketones (Negative) Urine Blood (Negative) Urine Nitrite (Negative) Urine Bilirubin (Negative) Urine Urobilinogen (Negative) Ur Leukocyte Esterase (Negative) Urine WBC (Auto) (0-5) /hpf Urine RBC (Auto) (0-4) /hpf U Hyaline Cast (Auto) (0-5) /lpf U Epithel Cells (Auto) (0-5) /lpf Urine Bacteria (Auto) (Negative) Ur Renal Epithelial Cell Urine Mucus (None Prsent) Salicylates (2.8-20) mg/dl Urine Opiates Screen (Neg) Ur Methadone, Qual (Neg) Acetaminophen (10-30) ug/ml Urine Barbiturates (Neg) Ur Phencyclidine (PCP) (Neg) U Amphetamin/Meth Scrn (Neg) MDMA (Ecstasy) Screen (Neg) U Benzodiazepines Scrn (Neg) Ur Cocaine Metabolite (Neg) U Marijuana (THC) Screen (Neg) Ethyl Alcohol mg/dL (0-3) mg/dl Blood Pressure Blood Pressure Findings: Elevated blood pressure Blood Pressure Disposition: elevated BP felt to be situational MDM Narrative 1250: Past medical records reviewed. The patient was evaluated in room A5. A com plete history and physical exam was performed. 1554: Labs show a sodium of 129. The patient will be give a liter of fluid. We will then recheck her sodium. If her sodium continues to be below 130, she will be admitted medically, but if it is greater than 130, she will be cleared for psychiatric placement. 1704: The patient finished her fluids. We are going to recheck her renal profile and see if her sodium has improved. 1758: The patient's repeat sodium after 1L of fluid is 133. The patient is now medically cleared and will be evaluated by psych for placement. 1922: The patient was accepted for admission to [address] [place] [address]. Impression & Plan Anxiety Discharge Plan Visit Data Chief Complaint: Anxiety Stated Complaint: ANXIOUS - SHAKY - THERAPIST REF ED Provider: Emeterio Huber Discharge Problem: Anxiety Patient Disposition: Transfer Behavioral Health Fac Discharge Instructions Interventions: ED Discharge Assessment Last Done: 03/30/19 19:25 Forms Stand Alone Forms: My [facility] Prescriptions Prescriptions: No Action sertraline 50 mg tablet 50 mg PO QAM RF: 0 clonazepam 0.5 mg tablet 0.5 mg PO QAM RF: 0 lisinopril 10 mg tablet 10 mg PO DAILY RF: 0 olanzapine 10 mg tablet 15 mg PO QPM RF: 0 hydralazine 25 mg tablet 25 mg PO QPM RF: 0 Referrals Referrals: Jomar Ayala [Primary Care Provider] - The scribe's documentation has been prepared under my direction and personally reviewed by me in its entirety. I confirm that the note above accurately reflects all work, treatment, procedures, and medical decision making performed by me.
[2019-03-30] MEDS ORDERED: ALUMINUM/MAGNESIUM SUSP 30 ML UDC PO PRN (19:03)
[2019-03-30] MEDS ORDERED: SODIUM CHLORIDE 0.65% NA SOLN 45 ML (OCEAN) PRN (19:03)
[2019-03-30] MEDS ORDERED: MAGNESIUM HYDROXIDE SUSP 30 ML UDC PO PRN (19:03)
[2019-03-30] MEDS ORDERED: BISMUTH SUBSALICYLATE PER ML OMNICELL CHARGE PO PRN (19:03)
[2019-03-30] MEDS ORDERED: OLANZapine 5 MG TABLET PO SCH (21:00)
[2019-03-31] MEDS: LISINOPRIL 10 MG TAB PO SCH (07:27)
[2019-03-31] MEDS: clonazePAM 0.5 MG TAB PO SCH (08:42)
[2019-03-31] MEDS ORDERED: SERTRALINE HCL 50 MG TABLET PO SCH (09:00)
--- NOTE | 2019-03-31 09:15 | History & Physical ---
Date of Service March 31, 2019 Impression / Recommendations Impression 73-year-old female with a history of bipolar 1 and generalized anxiety disorder who was admitted voluntarily with severe, debilitating anxiety, depression, and inability to function. She had electrolyte abnormalities on presentation due to poor p.o. intake, has not been sleeping, and has not been able to perform ADLs or get out of bed at home. She has lost weight, and is cognitively impaired, a very limited historian, and unable to give information about recent medication changes or even details about symptom evolution. We will need to get collateral information from her , and clarify her c urrent medications, if she indicates changes were made recently but she does not know what they were. Inpatient treatment is medically necessary due to the severity of her symptoms, inability to provide for her own basic needs at home even with the support of her , as evidenced by inability to get out of bed, perform ADLs, sleep, or get adequate nutrition, resulting in hyponatremia and hypokalemia. Inpatient treatment is medically necessary and is the least restrictive option. (1) Bipolar 1 disorder: 03/31 -current episode depressed with severe anxiety. -Clarify home med list, as there are some discrepancies (external medication history shows that she filled #30 olanzapine 10 mg tablets and hydroxyzine 25 mg tablets on 03/18/2019, but admission medication reconciliation indicates olanzapine 15 mg every afternoon and hydralazine 25 mg every afternoon). Nursing staff to call her and clarify this: Patient is not prescribed hydralazine, will remove medication. She did receive a dose last night, and blood pressure this morning was elevated 163/89, but on repeat 124/71. -Increase sertraline to 100 mg daily to target mood and anxiety, and watch for activation/mood stabilization. -It is unclear if her home dose of olanzapine is 10 or 15 mg; she received 15 mg last night, and I am concerned for EPS given her cogwheeling on exam and severe restlessness. Order benztropine 0.5 mg as needed, and reduce olanzapine to 10 milligrams at bedtime. Per she was only on 10mg olanzapine at home. May need to reduce dose further or switch to another antipsychotic if EPS does not improve. -Fasting lipid profile and glucose performed on 09/30/2018 for monitoring on an atypical antipsychotic, and were within normal limits. Present on Admission?: Yes (2) Generalized anxiety disorder: 03/31 -patient extremely anxious, with negative, ruminative thoughts, and severe restlessness. -Increase sertraline as above. -At home dose of hydroxyzine 25 mg at bedtime, and offer 25 mg every 4 hours as needed anxiety. -Continue clonazepam 0.5 mg every morning, and add 0.5 mg dose twice daily as needed if hydroxyzine an effective, but monitor for unsteadiness and oversedation. Present on Admission?: Yes (3) Hyponatremia: 03/31 -sodium 129 on initial presentation, improved to 130 after 1 liter NS in the ER. Encourage good p.o. intake, and recheck BMP tomorrow. Present on Admission?: Yes (4) Hypertension: 03/31 -continue lisinopril 10 mg daily. Monitor BP. Present on Admission?: Yes Risk Factors Assessment Male: No : Yes Do You Have Access To A Gun?: Yes ( has guns that are locked) Health Problems: Yes Mental Health Diagnoses: Yes Substance Use Disorders: No Previous Attempt: No Family History of Suicide: No Previous Psychiatric Hospitalization: Yes Hopelessness: Yes Smoker: No Protective Factors Assessment : Yes Responsible for Young Children: No Employed: No Supportive Family: Yes Good Rapport with Provider: Yes Psychiatric History Identifying Data VALENTINA CLARK is a 73-year-old F who currently lives in [place] with her , has a history of bipolar disorder type I and generalized anxiety disorder, and was admitted on 03/30/19 19:35 on a 201 voluntary commitment for severe anxiety and inability to function. Chief Complaint "Well my therapist said I should com...because of my thoughts". History of Present Illness Begging for help,The patient is known to us from a weeklong hospitalization on our unit in September 2018 for [facility]; she was discharged on risperidone 1 mg twice daily, with outpatient follow-up at [facility]. She was seen in the emergency room 03/22/2019 for anxiety, decreased appetite, and insomnia, and wanted inpatient treatment here, but no beds were available and she did not want to go to a different facility, so was discharged home. She return to the ER 03/30/2019 on referral from her therapist for worsening symptoms of anxiety, depression, decreased p.o. intake, and inability to function. She reported poor energy and concentration, inability to sleep, loss of interest, decreased appetite, and her reported she had not been eating or drinking, and he had difficulty getting her out of bed. She was extremely anxious, repeating the same things over and over, and said that she was "worried to ." Although she denied suicidal thoughts, she said that she was fearful and having "bad thoughts" and feelings of dread. She received 1 mg of lorazepam in the ER. She was hyponatremic with a sodium of 129, and received 1 L of IV fluid, with repeat sodium 133. Potassium was initially 3.6, but on recheck was 3.1. She was unable to confirm her outpatient medications, stating her manage them. Per her admission medication reconciliation, she is prescribed olanzapine 15 mg every afternoon, sertraline 50 mg every morning, clonazepam 0.5 mg every morning, lisinopril 10 mg daily, and hydralazine 25 mg every afternoon. Per her external medication history, she is prescribed hydroxyzine 25 mg nightly, and I do see no mention of hydralazine. On my assessment, the patient states she's "not able to sit real long," and is here because "of the negative thoughts." She is unable to give any examples, says they're "about different things, if you say the ryan is blue, I'll probably turn around and say it's black." Mood is "just anxious, overwhelming." She endorses excessive worry about "everyday things," restlessness and inability to sit still, and feeling distraught. She repeatedly asks "can we be finished?" She has not been able to function, do her ADLs, eat, sleep, do housework. She's lost at least 10 lbs due to "nervous stomach, not eating." This has been going on for the past several weeks. She endorses feeling down, but isn't sure why, "it's all mixed up." She says she got "stressed because I had to get a Real ID, that ruchi harley put me over the edge." She thinks this was in February, had to go to the courthouse to get a marriage license, and was overwhelmed by having to find the documents needed. She denies panic, SI, HI, AVH and paranoia. She thinks Dr. Astudillo just changed her medications, but she doesn't know which ones and doesn't know the names of her medications. Past Psychiatric History Current Psychiatric Diagnosis: Anxiety Disorder Outpatient Services: [facility] - Dr. Coffey, [facility] for therapy Not sure if she has a human services case manager Previous Psych Admissions: [facility] 09/2018 - [facility] - 08/2018 Do You Have Access To A Gun?: Yes ( has guns that are locked) History of Previous Suicide Attempt: No Past Medication Trials: risperidone - ineffective Allergies Allergy/AdvReac Type Severity Reaction Status Date / Time Penicillins Allergy Unknown rash Verified 03/30/19 16:17 Home Medications Home Medications Medication Instructions Recorded Confirmed Type clonazepam 0.5 mg PO QAM 03/30/19 03/30/19 History lisinopril 10 mg PO DAILY 03/30/19 03/30/19 History olanzapine 10 mg PO QPM 03/30/19 03/31/19 History sertraline 50 mg PO QAM 03/30/19 03/30/19 History hydroxyzine HCl 25 mg PO HS 03/31/19 03/31/19 History Family History Family History of: Bipolar (son may have bipolar disorder, but she is not sure) Alcohol History Hx of Alcohol Use Over the Past 12 Months: No AUDIT Total Score: 0 Smoking Use Have You Smoked or Used Tobacco Products in the Last 30 Days: No Smoking Status: Never smoker Substance History Hx of Prescription Med Misuse Over the Past 12 Months: No Hx of Over the Counter Med Misuse Over the Past 12 Months: No Hx of Inhalent Misuse Over the Past 12 Months: No Hx of Organic Substance Use Over the Past 12 Months: No Hx of Illegal Substances/Street Drug Use Over Past 12 Months: No Problems as a Result of Past Substance Use: None Identified Personal History Living Arrangements: Home Living Arrangements Comments: [place] with Highest Grade Completed: High School Graduate Employment Status: Retired Marital Status: Beliefs That Will Affect Care: None Current Legal Problems: No Hx Traumatic Life Events: No Patient History Medical History Bipolar 1 disorder with moderate freedom Mental health problem Surgical History H/O: hysterectomy (~1979) Family History Other Cancer Social History Preferred Language: Maori Communication Ability: Impaired [employer] Exchange Architect Required: No Beliefs That Will Affect Care: None marital status: Current Living Situation: Spouse current occupational status: retired Feels Safe at Home: Yes Smoking Status: Never smoker Hx Alcohol Use: No Hx Substance Use: No Review of Systems Review of Systems: All systems reviewed & are unremarkable except as noted in HPI & below Physical Exam Psychiatric: Orientation: alert and cooperative (Partially, but exam limited by extreme anxiety) Apperance: appropriately dressed (Baggy clothes) and appeared stated age Thin, limited grooming. Eye Contact: + poor eye contact Makes almost no eye contact, sitting stiffly in her chair with gaze straight ahead but averted. Slow, stiff, shuffling gait. Speech is slightly slowed, delayed Affect: + depressed affect, + anxious affect, + constricted affect and mood congruent with affect Mood: + anxious mood Thought Process: + perseveration Thought Content: + cognitive distortions, + thought insertion ("Negative thoughts") and + hopelessness Paucity of thought content, focused on anxiety, repeatedly asking to end the interview due to anxiety Suicidal Th oughts: denies suicidal thoughts Homicidal Thoughts: denies homicidal thoughts Hallucinations: no auditory hallucinations, no visual hallucinations and no tactile hallucinations Cognition: language grossly intact; + recent memory not intact, + remote memory not intact and + attention not intact Insight: + impaired insight Judgement: + impaired judgement + Cogwheeling in bilateral upper extremities, stiff movements and gait. Vital Signs (Past 24 Hours): Last Vital Signs Temp 36.5 C 03/31/19 06:00 Pulse 118 H 03/31/19 06:38 Resp 16 03/31/19 06:00 BP 163/89 H 03/31/19 06:38 Pulse Ox 95 03/30/19 20:09 Exam Statement: A physical exam was performed in the ER prior to admission to the unit by Dr. Emeterio Huber. I accept that physical as correct/medical clearance for the inpatient physical exam. Results & Data Laboratory Results Laboratory Results - last 24 hr 03/30/19 03/30/19 03/30/19 13:50 13:50 14:04 WBC 11.50 H RBC 4.16 L Hgb 13.2 Hct 37.7 MCV 90.6 MCH 31.7 MCHC 35.0 RDW Std Deviation 42.9 RDW Coeff of Gerson 12.9 Plt Count 330 MPV 9.6 Immature Gran % (Auto) 0.8 Neut % (Auto) 84.1 Lymph % (Auto) 7.8 [place] % (Auto) 6.6 Eos % (Auto) 0.4 Baso % (Auto) 0.3 Immature Gran # (Auto) 0.09 H Neut # (Auto) 9.66 H Lymph # (Auto) 0.90 L [place] # (Auto) 0.76 H Eos # (Auto) 0.05 Baso # (Auto) 0.04 Sodium Potassium Chloride Carbon Dioxide Anion Gap BUN Creatinine Est Cr Clr Drug Dosing Est GFR ( Amer) Est GFR (Non-Af Amer) BUN/Creatinine Ratio Glucose Calcium Total Bilirubin AST ALT Alkaline Phosphatase Total Protein Albumin Globulin Albumin/Globulin Ratio TSH Specimen Hemolysis Urine Color Dark Yellow Urine Appearance Cloudy A Urine pH 5.5 Ur Specific [place] 1.020 Urine Protein 1+ H Urine Glucose (UA) Negative Urine Ketones Trace H Urine Blood 1+ H Urine Nitrite Negative Urine Bilirubin Negative Urine Urobilinogen Negative Ur Leukocyte Esterase Trace H Urine WBC (Auto) 5-10 H Urine RBC (Auto) 0-4 U Hyaline Cast (Auto) 0 U Epithel Cells (Auto) >30 H Urine Bacteria (Auto) Negative Ur Renal Epithelial Cell Not Reportable Urine Mucus Present A Salicylates Urine Opiates Screen Neg Ur Methadone, Qual Neg Acetaminophen Urine Barbiturates Neg Ur Phencyclidine (PCP) Neg U Amphetamin/Meth Scrn Neg MDMA (Ecstasy) Screen Neg U Benzodiazepines Scrn Neg Ur Cocaine Metabolite Neg U Marijuana (THC) Screen Neg Ethyl Alcohol mg/dL 03/30/19 03/30/19 03/30/19 14:04 14:04 14:04 WBC RBC Hgb Hct MCV MCH MCHC RDW Std Deviation RDW Coeff of Gerson Plt Count MPV Immature Gran % (Auto) Neut % (Auto) Lymph % (Auto) [place] % (Auto) Eos % (Auto) Baso % (Auto) Immature Gran # (Auto) Neut # (Auto) Lymph # (Auto) [place] # (Auto) Eos # (Auto) Baso # (Auto) Sodium 129 L Potassium 3.6 Chloride 91 L Carbon Dioxide 28 Anion Gap 10.0 BUN 13 Creatinine 0.79 Est Cr Clr Drug Dosing 53.5 Est GFR ( Amer) 87.3 Est GFR (Non-Af Amer) 75.3 BUN/Creatinine Ratio 16.9 Glucose 124 H Calcium 8.8 Total Bilirubin 0.6 AST 21 ALT 26 Alkaline Phosphatase 108 Total Protein 8.0 Albumin 3.5 Globulin 4.5 H Albumin/Globulin Ratio 0.8 L TSH 1.790 Specimen Hemolysis Urine Color Urine Appearance Urine pH Ur Specific [place] Urine Protein Urine Glucose (UA) Urine Ketones Urine Blood Urine Nitrite Urine Bilirubin Urine Urobilinogen Ur Leukocyte Esterase Urine WBC (Auto) Urine RBC (Auto) U Hyaline Cast (Auto) U Epithel Cells (Auto) Urine Bacteria (Auto) Ur Renal Epithelial Cell Urine Mucus Salicylates < 1.7 L Urine Opiates Screen Ur Methadone, Qual Acetaminophen < 2 L Urine Barbiturates Ur Phencyclidine (PCP) U Amphetamin/Meth Scrn MDMA (Ecstasy) Screen U Benzodiazepines Scrn Ur Cocaine Metabolite U Marijuana (THC) Screen Ethyl Alcohol mg/dL < 3.0 03/30/19 17:06 WBC RBC Hgb Hct MCV MCH MCHC RDW Std Deviation RDW Coeff of Gerson Plt Count MPV Immature Gran % (Auto) Neut % (Auto) Lymph % (Auto) [place] % (Auto) Eos % (Auto) Baso % (Auto) Immature Gran # (Auto) Neut # (Auto) Lymph # (Auto) [place] # (Auto) Eos # (Auto) Baso # (Auto) Sodium 133 L Potassium 3.1 L Chloride 97 L Carbon Dioxide 27 Anion Gap 9.0 BUN 11 Creatinine 0.49 L D Est Cr Clr Drug Dosing 86.3 Est GFR ( Amer) 113.6 Est GFR (Non-Af Amer) 98.0 BUN/Creatinine Ratio 21.4 H Glucose 97 Calcium 7.7 L Total Bilirubin AST ALT Alkaline Phosphatase Total Protein Albumin Globulin Albumin/Globulin Ratio TSH Specimen Hemolysis Urine Color Urine Appearance Urine pH Ur Specific [place] Urine Protein Urine Glucose (UA) Urine Ketones Urine Blood Urine Nitrite Urine Bilirubin Urine Urobilinogen Ur Leukocyte Esterase Urine WBC (Auto) Urine RBC (Auto) U Hyaline Cast (Auto) U Epithel Cells (Auto) Urine Bacteria (Auto) Ur Renal Epithelial Cell Urine Mucus Salicylates Urine Opiates Screen Ur Methadone, Qual Acetaminophen Urine Barbiturates Ur Phencyclidine (PCP) U Amphetamin/Meth Scrn MDMA (Ecstasy) Screen U Benzodiazepines Scrn Ur Cocaine Metabolite U Marijuana (THC) Screen Ethyl Alcohol mg/dL Current Inpatient Medications Current Inpatient Medications: Current Inpatient Medications Acetaminophen (Tylenol) 650 mg PO Q4H PRN PRN Reason: Headache or Minor Fever Stop: 04/29/19 19:02 Al Hydrox/Mg Hydrox/Simethicone (Maalox) 30 ml PO Q4H PRN PRN Reason: GI Upset Stop: 04/29/19 19:02 Bismuth Subsalicylate (Kaopectate) 15 ml PO PRN PRN PRN Reason: Loose Stool Stop: 04/29/19 19:02 Clonazepam (Klonopin) 0.5 mg PO QAM PILI Stop: 04/30/19 08:59 Last Admin: 03/31/19 08:42 Dose: 0.5 mg Documented by: Hydralazine HCl (Apresoline) 25 mg PO QPM PILI Stop: 04/29/19 20:59 Last Admin: 03/30/19 22:15 Dose: 25 mg Documented by: Hydroxyzine HCl (Vistaril) 25 mg PO Q4H PRN PRN Reason: Anxiety Stop: 04/29/19 19:02 Hydroxyzine HCl (Vistaril) 50 mg PO HSZ PRN PRN Reason: Insomnia Stop: 04/29/19 19:02 Last Admin: 03/30/19 22:25 Dose: 50 mg Documented by: Lisinopril (Zestril) 10 mg PO DAILY PILI Stop: 04/30/19 08:59 Last Admin: 03/31/19 07:27 Dose: 10 mg Documented by: Magnesium Hydroxide (Milk Of Magnesia) 30 ml PO DAILY PRN PRN Reason: Heartburn Stop: 04/29/19 19:02 Olanzapine (Zyprexa) 15 mg PO QPM PILI Stop: 04/29/19 20:59 Last Admin: 03/30/19 22:15 Dose: 15 mg Documented by: Sertraline HCl (Zoloft) 50 mg PO QAM PILI Stop: 04/30/19 08:59 Last Admin: 03/31/19 07:27 Dose: 50 mg Documented by: Sodium Chloride (Emmet Nasal) 1 - 2 sprays NA PRN PRN PRN Reason: Nasal Dryness/Congestion Stop: 04/29/19 19:02 CPT Code CPT Code Initial Hospital Care: 11614
[2019-03-31] MEDS ORDERED: SERTRALINE HCL 50 MG TABLET PO ONE (09:43)
[2019-03-31] MEDS ORDERED: BENZTROPINE MESYLATE 0.5 MG TAB PO PRN (10:25)
[2019-03-31] MEDS: BENZTROPINE MESYLATE 0.5 MG TAB PO PRN ×2 (11:27→18:13)
[2019-03-31] MEDS ORDERED: BENZTROPINE MESYLATE 1 MG TAB PO ONE (13:04)
[2019-03-31] MEDS: OLANZapine 5 MG TABLET PO SCH (21:20)
[2019-04-01] MEDS: LISINOPRIL 10 MG TAB PO SCH (07:55)
[2019-04-01] MEDS: SERTRALINE HCL 100 MG TABLET PO SCH (07:55)
[2019-04-01] MEDS: clonazePAM 0.5 MG TAB PO SCH (07:56)
[2019-04-01 08:54] LABS: BUN Creatinine Ratio 14.8 (10-20); Calcium 8.8 mg/dl (8.5-10.1); Creatinine Clr Calc Pharmacy 71.7 ml/min; Est GFR (African American) 106.9; Est GFR (Non-African American) 92.2; Potassium 3.1 mmol/L (3.5-5.1)
[2019-04-01] MEDS: TRIHEXYPHENIDYL HCL 2 MG TAB PO SCH ×2 (11:09→20:50)
--- NOTE | 2019-04-01 11:24 | Psychiatric Progress Note ---
Date of Service April 01, 2019 Impression / Recommendations Impression 73-year-old female with a history of bipolar 1 and generalized anxiety disorder who was admitted voluntarily with severe, debilitating anxiety, depression, and inability to function. She had electrolyte abnormalities on presentation due to poor p.o. intake, has not been sleeping, and has not been able to perform ADLs or get out of bed at home. She has lost weight, and is cognitively impaired, a very limited historian, and unable to give information about recent medication changes or even details about symptom evolution. Inpatient treatment is medically necessary and remains the least restrictive o ption. The patient does acknowledge that she has been neglecting self-care at home, and notes that she is struggling to be more physically active and more independent in terms of her self-care here on the behavioral health unit. Although there appears to be some cognitive slowing, this seems likely to be a function of her severe depression. She is fully oriented and tells me that she graduated with honors from [employer]. Patient also reports today that she feels that her mood may have improved "a bit," and she says that she is "trying hard" to improve. She has insight into the fact that she is depressed, and she is able to correctly tell me her diagnosis of bipolar disorder. The patient struggles to provide information regarding manic or hypomanic episodes, but tells me that there have been periods of time in her life during which she has had an excessive amount of energy, with a decreased desire for sleep. 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 The patient is presenting with cogwheel rigidity on examination. She also notes that it has been difficult for her to stay seated because she feels "jumpy" and "restless." The patient has been placed on as needed benztropine, but I believe her level of confusion is such that she may not be able to retain the information that she will need to ask for benztropine or feeling jumpy and restless. Accordingly, I have converted her to a standing dose of trihexyphenidyl 2 mg twice a day with a test dose now to assess efficacy and tolerance. (1) Bipolar 1 disorder: 03/31 -current episode depressed with severe anxiety. -Clarify home med list, as there are some discrepancies (external medication history shows that she filled #30 olanzapine 10 mg tablets and hydroxyzine 25 mg tablets on 03/18/2019, but admission medication reconciliation indicates olanzapine 15 mg every afternoon and hydralazine 25 mg every afternoon). Nursing staff to call her and clarify this: Patient is not prescribed hydralazine, will remove medication. She did receive a dose last night, and blood pressure this morning was elevated 163/89, but on repeat 124/71. -Increase sertraline to 100 mg daily to target mood and anxiety, and watch for activation/mood stabilization. -It is unclear if her home dose of olanzapine is 10 or 15 mg; she received 15 mg last night, and I am concerned for EPS given her cogwheeling on exam and severe restlessness. Order benztropine 0.5 mg as needed, and reduce olanzapine to 10 milligrams at bedtime. Per she was only on 10mg olanzapine at home. May need to reduce dose further or switch to another antipsychotic if EPS does not improve. -Fasting lipid profile and glucose performed on 09/30/2018 for monitoring on an atypical antipsychotic, and were within normal limits. 04/01 -Contributing to the patient's severe anxiety may be akathisia associated with olanzapine and, possibly, sertraline. I have advised the patient accordingly, and she accepts my recommendation for a standing dose of Artane (trihexyphenidyl) -Patient otherwise indicates that she feels that she has been tolerating olanzapine well, and reports that she feels this medication has been helpful to her. -The patient's dose of sertraline has been increased to 100 mg daily (2) Generalized anxiety disorder: 03/31 -patient extremely anxious, with negative, ruminative thoughts, and severe restlessness. -Increase sertraline as above. -At home dose of hydroxyzine 25 mg at bedtime, and offer 25 mg every 4 hours as needed anxiety. -Continue clonazepam 0.5 mg every morning, and add 0.5 mg dose twice daily as needed if hydroxyzine an effective, but monitor for unsteadiness and oversedation. 04/01/19 -As noted above, some of the patient's anxious distress may be secondary to extraparametal side effects (akathisia). -On examination, the patient does have cogwheel rigidity. However, she tells me that she feels that she is somewhat less anxious and notes that the medicatio ns for her anxiety "may be helping." (3) Hyponatremia: 03/31 -sodium 129 on initial presentation, improved to 130 after 1 liter NS in the ER. Encourage good p.o. intake, and recheck BMP tomorrow. 04/01 -current sodium level is within normal limits. (4) Hypertension: 03/31 -continue lisinopril 10 mg daily. Monitor BP. (5) Hypokalemia: 04/01 -The patient's potassium level has remained 3.1 for 2 days now, within the context of poor oral intake. -Encourage oral intake. -Potassium chloride supplement 20 mEq daily x 6. Present on Admission?: No Risk Factors Assessment Male: No : Yes Do You Have Access To A Gun?: Yes ( has guns that are locked) Health Problems: Yes Mental Health Diagnoses: Yes Substance Use Disorders: No Previous Attempt: No Family History of Suicide: No Previous Psychiatric Hospitalization: Yes Hopelessness: Yes Smoker: No Protective Factors Assessment : Yes Responsible for Young Children: No Employed: No Supportive Family: Yes Good Rapport with Provider: Yes Interval History Chief Complaint "Negative Thoughts". Review of Systems Sleep Information Total Hours of Sleep: 6.5 Meal Information Percent Meal Consumed - Breakfast: 50 Percent Meal Consumed - Lunch: 25 Percent Meal Consumed - Dinner: 25 Subjective Subjective Patient was seen & assessed and interval progress reviewed with treatment team. I met with her individually in order to assess her current mental status, evaluate her response to treatment, coordinate any necessary changes in the patient's treatment regimen with the patient, and address issues and concerns that may arise. As noted above, the patient tells me today that her chief complaint is "negative thoughts." However, when asked to give an example of a negative thought she struggled, and finally said, "Well it's like if you were to say this anastacio is blue I would say, 'no, it is black.'" She clarified that she does not mean that she would say "black" to be oppositional but, instead, she would not recognize the hope and optimism associated with a "Blue ryan." She endorses other symptoms of depression including feeling hopeless, worthless, and helpless. She also notes that she has not been motivated to engage in self care and confirms that she had not been eating properly, nor has she been properly attending to her daily ablutions prior to discharge. At the same time, the patient tells me that she feels that she may be starting to "get a little better," and has noted that she feels a certain amount of optimism that she can pull herself out of the current depressive episode. In addition to experiencing what she refers to as "negative thoughts," the patient complains of feeling restless, and explains that she may need to stand up several times during the interview (although she did not). On examination, the patient reveals cogwheel rigidity. She had a partial response recently to benztropine. I educated the patient regarding extraparametal side effects associated with medication such as quetiapine and sertraline. I also explained why I had done the testing for co gwheel rigidity, and she smiled and indicated understanding. I recommended that we begin trihexyphenidyl 2 mg twice a day as a standing order, with a dose "now" to assess efficacy. According the nurses, the patient is continuing to consume only portions of her meals. The patient explains that a problem for her is that she does not feel hungry and sometimes has to force herself to eat. Physical Exam Psychiatric Orientation: oriented x 3 Apperance: + disheveled Eye Contact: + fair eye contact Motor Behavior: + EPS and + akathisia The patient's speech is soft and slow. She offers little spontaneously at first, but then becomes more engaging with time. Affect: + depressed affect Mood: + depressed mood and + anxious mood Thought Process: goal directed thought process Thought Content: reality based without delusions Suicidal Thoughts: denies suicidal thoughts Homicidal Thoughts: denies homicidal thoughts Hallucinations: no auditory hallucinations Estimated Intelligence: + above average estimated intelligence Insight: + fair insight Judgement: + fair judgement Vital Signs (Past 24 Hours) Last Vital Signs Temp 37.0 C 04/01/19 06:00 Pulse 110 H 04/01/19 06:47 Resp 18 04/01/19 06:00 BP 182/91 H 04/01/19 06:47 Pulse Ox 95 03/30/19 20:09 Results & Data Laboratory Results Laboratory Results - last 24 hr 04/01/19 08:11 Sodium 138 Potassium 3.1 L Chloride 102 Carbon Dioxide 29 Anion Gap 7.0 BUN 9 Creatinine 0.59 L Est Cr Clr Drug Dosing 71.7 Est GFR ( Amer) 106.9 Est GFR (Non-Af Amer) 92.2 BUN/Creatinine Ratio 14.8 Glucose 115 H Calcium 8.8 Current Inpatient Medications Current Inpatient Medications: Current Inpatient Medications Acetaminophen (Tylenol) 650 mg PO Q4H PRN PRN Reason: Headache or Minor Fever Stop: 04/29/19 19:02 Al Hydrox/Mg Hydrox/Simethicone (Maalox) 30 ml PO Q4H PRN PRN Reason: GI Upset Stop: 04/29/19 19:02 Benztropine Mesylate (Cogentin) 0.5 mg PO Q4H PRN PRN Reason: EPS Stop: 04/30/19 10:24 Last Admin: 03/31/19 18:13 Dose: 0.5 mg Documented by: Bismuth Subsalicylate (Kaopectate) 15 ml PO PRN PRN PRN Reason: Loose Stool Stop: 04/29/19 19:02 Clonazepam (Klonopin) 0.5 mg PO QAM [facility] Stop: 04/30/19 08:59 Last Admin: 04/01/19 07:56 Dose: 0.5 mg Documented by: Clonazepam (Klonopin) 0.5 mg PO BID PRN PRN Reason: Anxiety Stop: 04/30/19 09:43 Hydroxyzine HCl (Vistaril) 25 mg PO Q4H PRN PRN Reason: Anxiety Stop: 04/29/19 19:02 Last Admin: 03/31/19 22:45 Dose: 25 mg Documented by: Hydroxyzine HCl (Vistaril) 25 mg PO HS [facility] Stop: 04/30/19 21:59 Last Admin: 03/31/19 21:07 Dose: 25 mg Documented by: Lisinopril (Zestril) 10 mg PO DAILY [facility] Stop: 04/30/19 08:59 Last Admin: 04/01/19 07:55 Dose: 10 mg Documented by: Magnesium Hydroxide (Milk Of Magnesia) 30 ml PO DAILY PRN PRN Reason: Heartburn Stop: 04/29/19 19:02 Olanzapine (Zyprexa) 10 mg PO QPM [facility] Stop: 04/30/19 20:59 Last Admin: 03/31/19 21:20 Dose: 10 mg Documented by: Sertraline HCl (Zoloft) 100 mg PO QAM [facility] Stop: 05/01/19 08:59 Last Admin: 04/01/19 07:55 Dose: 100 mg Documented by: Sodium Chloride ([place] Nasal) 1 - 2 sprays NA PRN PRN PRN Reason: Nasal Dryness/Congestion Stop: 04/29/19 19:02 Trihexyphenidyl HCl (Artane) 2 mg PO BID PILI Stop: 05/01/19 10:14 Last Admin: 04/01/19 11:09 Dose: 2 mg Documented by: Mental Health & Subst Abuse Tx Psychiatrist Name of Psychiatrist: BENJAMIN Carey Astudillo Psychiatrist's Date of Appointment with Psychiatrist: 04/20/19 Time of Appointment with Psychiatrist: 2:00 p.m. Psychiatric Appointment Comment: [address] [place] [address] Therapist Name of Therapist: BENJAMIN Carey Petersen Therapist's Date of Therapist Appointment: 04/19/19 Time of Therapist Appointment: 1:30 p.m. Therapy Appointment Comment: [address] [place] [address] Post Discharge Appointments Primary Care Physician Name Of Family Doctor: [facility] - Dr. Ayala Primary Care Date of Appointment with PCP: 04/25/19 Time of Appointment with PCP: 10:30 a.m. Provider Appointment Comment: [address], [address], [place] [address] Contact Information Discharge Discharge Address: [address] [place] [id number] CPT Code CPT Code 33717
[2019-04-01] MEDS ORDERED: POTASSIUM CHLORIDE 20 MEQ TABCR PO SCH ×2 (11:45→12:00)
[2019-04-01] MEDS: POTASSIUM CHLORIDE 20 MEQ/15 ML UDC PO SCH (14:05)
[2019-04-01] MEDS: OLANZapine 5 MG TABLET PO SCH (20:51)
[2019-04-02] MEDS: TRIHEXYPHENIDYL HCL 2 MG TAB PO SCH ×2 (08:10→21:38)
[2019-04-02] MEDS: SERTRALINE HCL 100 MG TABLET PO SCH (08:10)
[2019-04-02] MEDS: LISINOPRIL 10 MG TAB PO SCH (08:10)
[2019-04-02] MEDS: clonazePAM 0.5 MG TAB PO SCH (08:10)
[2019-04-02] MEDS: POTASSIUM CHLORIDE 20 MEQ/15 ML UDC PO SCH (08:11)
[2019-04-02] MEDS ORDERED: LISINOPRIL 5 MG TAB PO ONE (09:54)
--- NOTE | 2019-04-02 18:15 | Psychiatric Progress Note ---
Date of Service April 02, 2019 Impression / Recommendations Impression 73-year-old female with a history of bipolar 1 and generalized anxiety disorder who was admitted voluntarily with severe, debilitating anxiety, depression, and inability to function. She had electrolyte abnormalities on presentation due to poor p.o. intake, has not been sleeping, and has not been able to perform ADLs or get out of bed at home. She has lost weight, and is cognitively impaired, a very limited historian, and unable to give information about recent medication changes or even details about symptom evolution. Inpatient treatment is medically necessary and remains the least restrictive o ption. The patient does acknowledge that she has been neglecting self-care at home, and notes that she is struggling to be more physically active and more independent in terms of her self-care here on the behavioral health unit. Although there appears to be some cognitive slowing, this seems likely to be a function of her severe depression. She is fully oriented and tells me that she graduated with honors from [email or web address]. Patient also reports today that she feels that her mood may have improved "a bit," and she says that she is "trying hard" to improve. She has insight into the fact that she is depressed, and she is able to correctly tell me her diagnosis of bipolar disorder. The patient struggles to provide information regarding manic or hypomanic episodes, but tells me that there have been periods of time in her life during which she has had an excessive amount of energy, with a decreased desire for sleep. 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 The patient is presenting with cogwheel rigidity on examination. She also notes that it has been difficult for her to stay seated because she feels "jumpy" and "restless." The patient has been placed on as needed benztropine, but I believe her level of confusion is such that she may not be able to retain the information that she will need to ask for benztropine or feeling jumpy and restless. Accordingly, I have converted her to a standing dose of trihexyphenidyl 2 mg twice a day with a test dose now to assess efficacy and tolerance. (1) Bipolar 1 disorder: 03/31 -current episode depressed with severe anxiety. -Clarify home med list, as there are some discrepancies (external medication history shows that she filled #30 olanzapine 10 mg tablets and hydroxyzine 25 mg tablets on 03/18/2019, but admission medication reconciliation indicates olanzapine 15 mg every afternoon and hydralazine 25 mg every afternoon). Nursing staff to call her and clarify this: Patient is not prescribed hydralazine, will remove medication. She did receive a dose last night, and blood pressure this morning was elevated 163/89, but on repeat 124/71. -Increase sertraline to 100 mg daily to target mood and anxiety, and watch for activation/mood stabilization. -It is unclear if her home dose of olanzapine is 10 or 15 mg; she received 15 mg last night, and I am concerned for EPS given her cogwheeling on exam and severe restlessness. Order benztropine 0.5 mg as needed, and reduce olanzapine to 10 milligrams at bedtime. Per she was only on 10mg olanzapine at home. May need to reduce dose further or switch to another antipsychotic if EPS does not improve. -Fasting lipid profile and glucose performed on 09/30/2018 for monitoring on an atypical antipsychotic, and were within normal limits. 04/01 -Contributing to the patient's severe anxiety may be akathisia associated with olanzapine and, possibly, sertraline. I have advised the patient accordingly, and she accepts my recommendation for a standing dose of Artane (trihexyphenidyl) -Patient otherwise indicates that she feels that she has been tolerating olanzapine well, and reports that she feels this medication has been helpful to her. -The patient's dose of sertraline has been increased to 100 mg daily 04/02 -Patient more unsteady today. Will hold any further doses of diphenhydramine for now. She does not have any cogwheeling; once she is able to relax the paratonia disappears -Patient now on moderate dose of SSRI. Reviewed she had been manic at last presentation. Considering Remeron trial which may help with restlessness and anxiety and allow for reduction of some of the anticholinergic medication she has been started on however patient appeared overwhelmed when attempting to discuss today and will defer for reconsideration tomorrow -patient refused physical therapy referral for imbalance today (2) Generalized anxiety disorder: 03/31 -patient extremely anxious, with negative, ruminative thoughts, and severe restlessness. -Increase sertraline as above. -At home dose of hydroxyzine 25 mg at bedtime, and offer 25 mg every 4 hours as needed anxiety. -Continue clonazepam 0.5 mg every morning, and add 0.5 mg dose twice daily as needed if hydroxyzine an effective, but monitor for unsteadiness and oversedation. 04/01/19 -As noted above, some of the patient's anxious distress may be secondary to extraparametal side effects (akathisia). -On examination, the patient does have cogwheel rigidity. However, she tells me that she feels that she is somewhat less anxious and notes that the medications for her anxiety "may be helping." (3) Hyponatremia: 03/31 -sodium 129 on initial presentation, improved to 130 after 1 liter NS in the ER. Encourage good p.o. intake, and recheck BMP tomorrow. 04/01 -current sodium level is within normal limits. (4) Hypertension: 03/31 -continue lisinopril 10 mg daily. Monitor BP. 04/02 -BP again asymptomatically elevated this morning. We will increase lisinopril to 15 mg daily (5) Hypokalemia: 04/01 -The patient's potassium level has remained 3.1 for 2 days now, within the context of poor oral intake. -Encourage oral intake. -Potassium chloride supplement 20 mEq daily x 6. Risk Factors Assessment Male: No : Yes Do You Have Access To A Gun?: Yes ( has guns that are locked) Health Problems: Yes Mental Health Diagnoses: Yes Substance Use Disorders: No Previous Attempt: No Family History of Suicide: No Previous Psychiatric Hospitalization: Yes Hopelessness: Yes Smoker: No Protective Factors Assessment : Yes Responsible for Young Children: No Employed: No Supportive Family: Yes Good Rapport with Provider: Yes Interval History Chief Complaint "I feel weak". Review of Systems Notes Denies headache, chest pain or chest tightness Sleep Information Total Hours of Sleep: 6.75 Meal Information Percent Meal Consumed - Breakfast: 25 Percent Meal Consumed - Lunch: 80 Percent Meal Consumed - Dinner: 75 Subjective Subjective Patient was seen & assessed and interval progress reviewed with treatment team. Per staff patient attending some groups. Has appeared less restless in the last 24 hours after being started on Benadryl and Artane yesterday however she is also complaining of increased weakness and gait instability. No falls. Blood pressure elevated this morning. Patient is asymptomatic regarding cardiovascular complaints. She reports anxiety is "pretty high." Complains of feeling weak in her lower extremities contributing to gait instability. Reports sleep latent last evening. Describes thoughts as fast but struggles to describe thought content. Reviewed patient previously manic at last hospital presentation and was being treated with Risperdal at that time. She is now on olanzapine and Zoloft. Physical Exam Psychiatric Orientation: alert and cooperative Apperance: appropriately dressed Eye Contact: + fair eye contact Motor Behavior: + unsteady gait or station Diminished arm swing bilaterally Speech is soft Affect: + anxious affect Mood: + anxious mood Thought Process: + perseveration Thought Content: + preoccupation Suicidal Thoughts: + reports suicidal thoughts Homicidal Thoughts: + reports homicidal thoughts Hallucinations: no auditory hallucinations Cognition: + attention not intact Insight: + limited insight Judgement: + limited judgement Vital Signs (Past 24 Hours) Last Vital Signs Temp 36.6 C 04/02/19 06:43 Pulse 99 H 04/02/19 10:47 Resp 20 04/02/19 10:47 BP 126/81 04/02/19 10:47 Pulse Ox 95 03/30/19 20:09 Results & Data Current Inpatient Medications Current Inpatient Medications: Current Inpatient Medications Acetaminophen (Tylenol) 650 mg PO Q4H PRN PRN Reason: Headache or Minor Fever Stop: 04/29/19 19:02 Al Hydrox/Mg Hydrox/Simethicone (Maalox) 30 ml PO Q4H PRN PRN Reason: GI Upset Stop: 04/29/19 19:02 Bismuth Subsalicylate (Kaopectate) 15 ml PO PRN PRN PRN Reason: Loose Stool Stop: 04/29/19 19:02 Clonazepam (Klonopin) 0.5 mg PO QAM [facility] Stop: 04/30/19 08:59 Last Admin: 04/02/19 08:10 Dose: 0.5 mg Documented by: Clonazepam (Klonopin) 0.5 mg PO BID PRN PRN Reason: Anxiety Stop: 04/30/19 09:43 Hydroxyzine HCl (Vistaril) 25 mg PO Q4H PRN PRN Reason: Anxiety Stop: 04/29/19 19:02 Last Admin: 03/31/19 22:45 Dose: 25 mg Documented by: Hydroxyzine HCl (Vistaril) 25 mg PO HS [facility]I Stop: 04/30/19 21:59 Last Admin: 04/01/19 20:51 Dose: 25 mg Documented by: Lisinopril (Zestril) 15 mg PO DAILY PILI Stop: 05/03/19 08:59 Magnesium Hydroxide (Milk Of Magnesia) 30 ml PO DAILY PRN PRN Reason: Heartburn Stop: 04/29/19 19:02 Olanzapine (Zyprexa) 10 mg PO QPM [facility]I Stop: 04/30/19 20:59 Last Admin: 04/01/19 20:51 Dose: 10 mg Documented by: Potassium Chloride (Jaz Ciel Elix) 20 meq PO QAM PILI Stop: 05/01/19 13:14 Last Admin: 04/02/19 08:11 Dose: 20 meq Documented by: Sertraline HCl (Zoloft) 100 mg PO QAM [facility]I Stop: 05/01/19 08:59 Last Admin: 04/02/19 08:10 Dose: 100 mg Documented by: Sodium Chloride ([place] Nasal) 1 - 2 sprays NA PRN PRN PRN Reason: Nasal Dryness/Congestion Stop: 04/29/19 19:02 Trihexyphenidyl HCl (Artane) 2 mg PO BID PILI Stop: 05/01/19 10:14 Last Admin: 04/02/19 08:10 Dose: 2 mg Documented by: Mental Health & Subst Abuse Tx Psychiatrist Name of Psychiatrist: DEYSI Astudillo Psychiatrist's Date of Appointment with Psychiatrist: 04/20/19 Time of Appointment with Psychiatrist: 2:00 p.m. Psychiatric Appointment Comment: [address] [facility] [place] [id number] Therapist Name of Therapist: DEYSI Petersen Therapist's Date of Therapist Appointment: 04/19/19 Time of Therapist Appointment: 1:30 p.m. Therapy Appointment Comment: [address] [place] [address] Post Discharge Appointments Primary Care Physician Name Of Family Doctor: [facility] - Dr. Ayala Primary Care Date of Appointment with PCP: 04/25/19 Time of Appointment with PCP: 10:30 a.m. Provider Appointment Comment: [address], [address], [place] [address] Contact Information Discharge Discharge Address: [address] [place] [id number] CPT Code CPT Code 86913
[2019-04-02] MEDS: OLANZapine 5 MG TABLET PO SCH (21:38)
[2019-04-03] MEDS: clonazePAM 0.5 MG TAB PO PRN (06:42)
[2019-04-03] MEDS: clonazePAM 0.5 MG TAB PO SCH (08:34)
[2019-04-03] MEDS: TRIHEXYPHENIDYL HCL 2 MG TAB PO SCH ×2 (08:34→21:25)
[2019-04-03] MEDS: LISINOPRIL 10 MG TAB PO SCH (08:34)
[2019-04-03] MEDS: POTASSIUM CHLORIDE 20 MEQ/15 ML UDC PO SCH (08:35)
[2019-04-03] MEDS: SERTRALINE HCL 100 MG TABLET PO SCH (08:35)
--- NOTE | 2019-04-03 13:42 | Psychiatric Progress Note ---
Date of Service April 03, 2019 Impression / Recommendations Impression 73-year-old female with a history of bipolar 1 and generalized anxiety disorder who was admitted voluntarily with severe, debilitating anxiety, depression, and inability to function. She had electrolyte abnormalities on presentation due to poor p.o. intake, has not been sleeping, and has not been able to perform ADLs or get out of bed at home. She has lost weight, and is cognitively impaired, a very limited historian, and unable to give information about recent medication changes or even details about symptom evolution. Inpatient treatment is medically necessary and remains the least restrictive o ption. The patient does acknowledge that she has been neglecting self-care at home, and notes that she is struggling to be more physically active and more independent in terms of her self-care here on the behavioral health unit. Although there appears to be some cognitive slowing, this seems likely to be a function of her severe depression. She is fully oriented and tells me that she graduated with honors from [employer]. Patient also reports today that she feels that her mood may have improved "a bit," and she says that she is "trying hard" to improve. She has insight into the fact that she is depressed, and she is able to correctly tell me her diagnosis of bipolar disorder. The patient struggles to provide information regarding manic or hypomanic episodes, but tells me that there have been periods of time in her life during which she has had an excessive amount of energy, with a decreased desire for sleep. 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 The patient is presenting with cogwheel rigidity on examination. She also notes that it has been difficult for her to stay seated because she feels "jumpy" and "restless." The patient has been placed on as needed benztropine, but I believe her level of confusion is such that she may not be able to retain the information that she will need to ask for benztropine or feeling jumpy and restless. Accordingly, I have converted her to a standing dose of trihexyphenidyl 2 mg twice a day with a test dose now to assess efficacy and tolerance. (1) Bipolar 1 disorder: 03/31 -current episode depressed with severe anxiety. -Clarify home med list, as there are some discrepancies (external medication history shows that she filled #30 olanzapine 10 mg tablets and hydroxyzine 25 mg tablets on 03/18/2019, but admission medication reconciliation indicates olanzapine 15 mg every afternoon and hydralazine 25 mg every afternoon). Nursing staff to call her and clarify this: Patient is not prescribed hydralazine, will remove medication. She did receive a dose last night, and blood pressure this morning was elevated 163/89, but on repeat 124/71. -Increase sertraline to 100 mg daily to target mood and anxiety, and watch for activation/mood stabilization. -It is unclear if her home dose of olanzapine is 10 or 15 mg; she received 15 mg last night, and I am concerned for EPS given her cogwheeling on exam and severe restlessness. Order benztropine 0.5 mg as needed, and reduce olanzapine to 10 milligrams at bedtime. Per she was only on 10mg olanzapine at home. May need to reduce dose further or switch to another antipsychotic if EPS does not improve. -Fasting lipid profile and glucose performed on 09/30/2018 for monitoring on an atypical antipsychotic, and were within normal limits. 04/01 -Contributing to the patient's severe anxiety may be akathisia associated with olanzapine and, possibly, sertraline. I have advised the patient accordingly, and she accepts my recommendation for a standing dose of Artane (trihexyphenidyl) -Patient otherwise indicates that she feels that she has been tolerating olanzapine well, and reports that she feels this medication has been helpful to her. -The patient's dose of sertraline has been increased to 100 mg daily 04/02 -Patient more unsteady today. Will hold any further doses of diphenhydramine for now. She does not have any cogwheeling; once she is able to relax the paratonia disappears -Patient now on moderate dose of SSRI. Reviewed she had been manic at last presentation. Considering Remeron trial which may help with restlessness and anxiety and allow for reduction of some of the anticholinergic medication she has been started on however patient appeared overwhelmed when attempting to discuss today and will defer for reconsideration tomorrow -patient refused physical therapy referral for imbalance today (2) Generalized anxiety disorder: 03/31 -patient extremely anxious, with negative, ruminative thoughts, and severe restlessness. -Increase sertraline as above. -At home dose of hydroxyzine 25 mg at bedtime, and offer 25 mg every 4 hours as needed anxiety. -Continue clonazepam 0.5 mg every morning, and add 0.5 mg dose twice daily as needed if hydroxyzine an effective, but monitor for unsteadiness and oversedation. 04/01/19 -As noted above, some of the patient's anxious distress may be secondary to eps side effects (akathisia). -On examination, the patient does have cogwheel rigidity. However, she tells me that she feels that she is somewhat less anxious and notes that the medicati ons for her anxiety "may be helping." 04/02 -Patient remains highly anxious. Considered alternative options for bedtime hydroxyzine to reduce anticholinergic burden. Elected to trial the Remeron at 15 mg p.o. nightly which may help off label for feelings of restlessness. Hopefully this will also help to reduce her anxiety and provide some appetite stimulation but will need to watch for mood cycling in combination with the sertraline. If she does well with this agent, could consider using it as antidepressant monotherapy (tapering her off the Zoloft) (3) Hyponatremia: 03/31 -sodium 129 on initial presentation, improved to 130 after 1 liter NS in the ER. Encourage good p.o. intake, and recheck BMP tomorrow. 04/01 -current sodium level is within normal limits. 04/03 -Remeron low risk for hyponatremia (4) Hypertension: 03/31 -continue lisinopril 10 mg daily. Monitor BP. 04/02 -BP again asymptomatically elevated this morning. We will increase lisinopril to 15 mg daily 04/02 -Tolerated increased dose of lisinopril adequately. Blood pressures remain elevated in a.m.'s. (5) Hypokalemia: 04/01 -The patient's potassium level has remained 3.1 for 2 days now, within the context of poor oral intake. -Encourage oral intake. -Potassium chloride supplement 20 mEq daily x 6. 04/02 -Repeat BMP ordered for Thursday morning for sodium and potassium monitoring. Risk Factors Assessment Male: No : Yes Do You Have Access To A Gun?: Yes ( has guns that are locked) Health Problems: Yes Mental Health Diagnoses: Yes Substance Use Disorders: No Previous Attempt: No Family History of Suicide: No Previous Psychiatric Hospitalization: Yes Hopelessness: Yes Smoker: No Protective Factors Assessment : Yes Responsible for Young Children: No Employed: No Supportive Family: Yes Good Rapport with Provider: Yes Interval History Chief Complaint "I am a little better". Review of Systems Notes Denies dizziness. Muscle weakness reduced Sleep Information Total Hours of Sleep: 7 Sleep Comments: awake and to the bathrom at [id number] about not sleepg well last night-remimded it was still only 0200. needed asssit to straighten out her bed linens to resettle for sleep. Meal Information Percent Meal Consumed - Breakfast: 90 Percent Meal Consumed - Lunch: 50 Percent Meal Consumed - Dinner: 75 Subjective Subjective Patient was seen & assessed and interval progress reviewed with treatment team. Per staff patient remains highly anxious but with interval improvement perceived, however modest. On interview patient complains of continued sleep latency at night. She describes feeling anxious with rapid thoughts but not depressed. She feels foggy in her mentation. Denies constipation. Appetite fair. Physical Exam Psychiatric Orientation: cooperative Apperance: appropriately dressed Eye Contact: good eye contact Motor Behavior: + psychomotor retardation Soft, clear Affect: + anxious affect and + blunted affect Mood: + anxious mood; no depressed mood Denies euphoria Thought Process: + perseveration Thought Content: no hopelessness Suicidal Thoughts: denies suicidal thoughts Cognition: + attention not intact Insight: + limited insight Judgement: + limited judgement Vital Signs (Past 24 Hours) Last Vital Signs Temp 36.7 C 04/03/19 06:45 Pulse 101 H 04/03/19 08:40 Resp 20 04/03/19 06:45 BP 144/90 H 04/03/19 08:40 Pulse Ox 95 03/30/19 20:09 Results & Data Current Inpatient Medications Current Inpatient Medications: Current Inpatient Medications Acetaminophen (Tylenol) 650 mg PO Q4H PRN PRN Reason: Headache or Minor Fever Stop: 04/29/19 19:02 Al Hydrox/Mg Hydrox/Simethicone (Maalox) 30 ml PO Q4H PRN PRN Reason: GI Upset Stop: 04/29/19 19:02 Bismuth Subsalicylate (Kaopectate) 15 ml PO PRN PRN PRN Reason: Loose Stool Stop: 04/29/19 19:02 Clonazepam (Klonopin) 0.5 mg PO QAM PILI Stop: 04/30/19 08:59 Last Admin: 04/03/19 08:34 Dose: 0.5 mg Documented by: Clonazepam (Klonopin) 0.5 mg PO BID PRN PRN Reason: Anxiety Stop: 04/30/19 09:43 Last Admin: 04/03/19 06:42 Dose: 0.5 mg Documented by: Hydroxyzine HCl (Vistaril) 25 mg PO Q4H PRN PRN Reason: Anxiety Stop: 04/29/19 19:02 Last Admin: 03/31/19 22:45 Dose: 25 mg Documented by: Lisinopril (Zestril) 15 mg PO DAILY PILI Stop: 05/03/19 08:59 Last Admin: 04/03/19 08:34 Dose: 15 mg Documented by: Magnesium Hydroxide (Milk Of Magnesia) 30 ml PO DAILY PRN PRN Reason: Heartburn Stop: 04/29/19 19:02 Mirtazapine (Remeron) 15 mg PO HS [facility] Stop: 05/03/19 21:59 Olanzapine (Zyprexa) 10 mg PO QPM PILI Stop: 04/30/19 20:59 Last Admin: 04/02/19 21:38 Dose: 10 mg Documented by: Potassium Chloride (Jaz Ciel Elix) 20 meq PO QAM PILI Stop: 05/01/19 13:14 Last Admin: 04/03/19 08:35 Dose: 20 meq Documented by: Sertraline HCl (Zoloft) 100 mg PO QAM [facility] Stop: 05/01/19 08:59 Last Admin: 04/03/19 08:35 Dose: 100 mg Documented by: Sodium Chloride (Sherman Nasal) 1 - 2 sprays NA PRN PRN PRN Reason: Nasal Dryness/Congestion Stop: 04/29/19 19:02 Trihexyphenidyl HCl (Artane) 2 mg PO BID PILI Stop: 05/01/19 10:14 Last Admin: 04/03/19 08:34 Dose: 2 mg Documented by: Mental Health & Subst Abuse Tx Psychiatrist Name of Psychiatrist: [facility] Carey Astudillo Psychiatrist's Date of Appointment with Psychiatrist: 04/20/19 Time of Appointment with Psychiatrist: 2:00 p.m. Psychiatric Appointment Comment: [address] [facility] [place] [address] Therapist Name of Therapist: DEYSI Petersen Therapist's Date of Therapist Appointment: 04/19/19 Time of Therapist Appointment: 1:30 p.m. Therapy Appointment Comment: [address] [facility] [address] Post Discharge Appointments Primary Care Physician Name Of Family Doctor: [facility] - [facility] Date of Appointment with PCP: 04/25/19 Time of Appointment with PCP: 10:30 a.m. Provider Appointment Comment: [address], [address], [place] [address] Contact Information Discharge Discharge Address: [address] [place] [id number] CPT Code CPT Code 26605
[2019-04-03] MEDS: OLANZapine 5 MG TABLET PO SCH (21:25)
[2019-04-03] MEDS: MIRTAZAPINE TAB 15 MG TAB PO SCH (21:26)
[2019-04-04 07:53] LABS: BUN Creatinine Ratio 22.8 (10-20); Calcium 8.7 mg/dl (8.5-10.1); Creatinine Clr Calc Pharmacy 66.1 ml/min; Est GFR (African American) 104.1; Est GFR (Non-African American) 89.8; Potassium 3.9 mmol/L (3.5-5.1)
[2019-04-04] MEDS: LISINOPRIL 10 MG TAB PO SCH (07:54)
[2019-04-04] MEDS: clonazePAM 0.5 MG TAB PO SCH (07:54)
[2019-04-04] MEDS: SERTRALINE HCL 100 MG TABLET PO SCH (07:54)
[2019-04-04] MEDS: TRIHEXYPHENIDYL HCL 2 MG TAB PO SCH ×2 (07:54→20:57)
[2019-04-04] MEDS: POTASSIUM CHLORIDE 20 MEQ/15 ML UDC PO SCH (07:55)
--- NOTE | 2019-04-04 14:19 | Psychiatric Progress Note ---
Date of Service April 04, 2019 Impression / Recommendations Impression 73-year-old female with a history of bipolar 1 and generalized anxiety disorder who was admitted voluntarily with severe, debilitating anxiety, depression, and inability to function. She had electrolyte abnormalities on presentation due to poor p.o. intake, has not been sleeping, and has not been able to perform ADLs or get out of bed at home. She has lost weight, and is cognitively impaired, a very limited historian, and unable to give information about recent medication changes or even details about symptom evolution. Inpatient treatment is medically necessary and remains the least restrictive o ption. (1) Bipolar 1 disorder: 03/31 -current episode depressed with severe anxiety. -Clarify home med list, as there are some discrepancies (external medication history shows that she filled #30 olanzapine 10 mg tablets and hydroxyzine 25 mg tablets on 03/18/2019, but admission medication reconciliation indicates olanzapine 15 mg every afternoon and hydralazine 25 mg every afternoon). Nursing staff to call her and clarify this: Patient is not prescribed hydralazine, will remove medication. She did receive a dose last night, and blood pressure this morning was elevated 163/89, but on repeat 124/71. -Increase sertraline to 100 mg daily to target mood and anxiety, and watch for activation/mood stabilization. -It is unclear if her home dose of olanzapine is 10 or 15 mg; she received 15 mg last night, and I am concerned for EPS given her cogwheeling on exam and severe restlessness. Order benztropine 0.5 mg as needed, and reduce olanzapine to 10 milligrams at bedtime. Per she was only on 10mg olanzapine at home. May need to reduce dose further or switch to another antipsychotic if EPS does not improve. -Fasting lipid profile and glucose performed on 09/30/2018 for monitoring on an atypical antipsychotic, and were within normal limits. 04/01 -Contributing to the patient's severe anxiety may be akathisia associated with olanzapine and, possibly, sertraline. I have advised the patient accordingly, and she accepts my recommendation for a standing dose of Artane (trihexyphenidyl) -Patient otherwise indicates that she feels that she has been tolerating olanzapine well, and reports that she feels this medication has been helpful to her. -The patient's dose of sertraline has been increased to 100 mg daily 8/17 -Patient more unsteady today. Will hold any further doses of diphenhydramine for now. She does not have any cogwheeling; once she is able to relax the paratonia disappears -Patient now on moderate dose of SSRI. Reviewed she had been manic at last presentation. Considering Remeron trial which may help with restlessness and anxiety and allow for reduction of some of the anticholinergic medication she has been started on however patient appeared overwhelmed when attempting to discuss today and will defer for reconsideration tomorrow -patient refused physical therapy referral for imbalance today 04/04 - Continue current medication regimen, consider titration of mirtazapine with observation for activation (2) Generalized anxiety disorder: 03/31 -patient extremely anxious, with negative, ruminative thoughts, and severe restlessness. -Increase sertraline as above. -At home dose of hydroxyzine 25 mg at bedtime, and offer 25 mg every 4 hours as needed anxiety. -Continue clonazepam 0.5 mg every morning, and add 0.5 mg dose twice daily as needed if hydroxyzine an effective, but monitor for unsteadiness and oversedation. 04/01/19 -As noted above, some of the patient's anxious distress may be secondary to eps side effects (akathisia). -On examination, the patient does have cogwheel rigidity. However, she tells me that she feels that she is somewhat less anxious and notes that the medications for her anxiety "may be helping." 04/02 -Patient remains highly anxious. Considered alternative options for bedtime hydroxyzine to reduce anticholinergic burden. Elected to trial the Remeron at 15 mg p.o. nightly which may help off label for feelings of restlessness. Hopefully this will also help to reduce her anxiety and provide some appetite stimulation but will need to watch for mood cycling in combination with the sertraline. If she does well with this agent, could consider using it as antidepressant monotherapy (tapering her off the Zoloft) 04/04 - Continue current medication regimen - consider increase or mirtazapine and possible taper of sertraline as outlined above; wanting to ensure tolerance prior to switching to mirtazapine as monotherapy (3) Hyponatremia: 03/31 -sodium 129 on initial presentation, improved to 130 after 1 liter NS in the ER. Encourage good p.o. intake, and recheck BMP tomorrow. 04/01 -current sodium level is within normal limits. 04/03 -Remeron low risk for hyponatremia 04/04 - BMP reviewed with patient today; hyponatremia now normalized at 137 - Reporting improved nutritional intake (4) Hypertension: 03/31 -continue lisinopril 10 mg daily. Monitor BP. 04/02 -BP again asymptomatically elevated this morning. We will increase lisinopril to 15 mg daily 04/02 -Tolerated increased dose of lisinopril adequately. Blood pressures remain elevated in a.m.'s. (5) Hypokalemia: 04/01 -The patient's potassium level has remained 3.1 for 2 days now, within the context of poor oral intake. -Encourage oral intake. -Potassium chloride supplement 20 mEq daily x 6. 04/02 -Repeat BMP ordered for Thursday morning for sodium and potassium monitoring. 04/04 - Reviewed BMP with patient, hypokalemia now normalized - 3.9 - Continue to encourage adequate oral intake - Pt requesting trial of potassium supplement in tablet form Risk Factors Assessment Male: No : Yes Do You Have Access To A Gun?: Yes ( has guns that are locked) Health Problems: Yes Mental Health Diagnoses: Yes Substance Use Disorders: No Previous Attempt: No Family History of Suicide: No Previous Psychiatric Hospitalization: Yes Hopelessness: Yes Smoker: No Protective Factors Assessment : Yes Responsible for Young Children: No Employed: No Supportive Family: Yes Good Rapport with Provider: Yes Interval History Identifying Information VALENTINA CLARK is a 73-year-old F who currently lives in [place] with her , has a history of bipolar disorder type I and generalized anxiety disorder, and was admitted on 03/30/19 19:35 on a 201 voluntary commitment for severe anxiety and inability to function. Chief Complaint "I don't know that I can talk to you, I don't feel comfortable." Review of Systems Notes Constitutional: reports improved sleep last evening Cardiovascular: denied Respiratory: denied Gastrointestinal: denied Neurological: denied Psychiatric: denies symptoms other than stated above Total of at least 10 systems reviewed, pertinent positives as above and in HPI. Sleep Information Total Hours of Sleep: 7.75 Sleep Comments: awake and to the bathrom at [id number] about not sleepg well last night-remimded it was still only 0200. needed asssit to straighten out her bed linens to resettle for sleep. Meal Information Percent Meal Consumed - Breakfast: 100 Percent Meal Consumed - Lunch: 50 Percent Meal Consumed - Dinner: 50 Subjective Subjective Patient was seen & assessed and interval progress reviewed with treatment team. Staff report that the patient continued to appear very anxious throughout the weekend and demonstrated ongoing ruminations. Pt rated her mood a 1/10 and "anxious" last evening. Pt has been attending groups, but participation is limited. Pt was seen today to assess progress since admission. She was found to be coloring in the activity room, and was initially willing to talk with this provider when she suddenly said, "I don't think I can talk to you, I don't feel comfortable." Pt was asked if there was a particular concern which she denied, as she continued to walk toward the office. Pt then stated, "I don't know that I'll have much to say." This provider offered to review with her, even if she felt she could not talk, and she was agreeable to this. Pt states that she feels she has been "getting better." She continues to verbalize anxiety, but is unable to share any specific subjects of her racing thoughts. Pt rates her anxiety a 10/10. Her mood is "lower than normal", but she denies SI. We r eviewed medication adjustments from the weekend, and patient states, "that was the first good sleep I've had in a few nights." She denies any concerns that would appear to be related to initiation of mirtazapine. We reviewed patient's blood tests from this morning, her potassium and sodium are now WNL. Pt is requesting trial of potassium supplement as a tablet rather than a liquid. Pt denies other needs or concern today. Physical Exam Psychiatric Orientation: alert and cooperative (superficially) Apperance: appropriately dressed (casually in a nice shirt and jeans), appropriately groomed and appeared stated age wearing corrective lenses Eye Contact: + poor eye contact (staring at desk rather than making direct eye contact) Motor Behavior: steady gait and station (cautious but stable ambulation), no abnormal motor movements and + tremor Speech: normal rate/rhythm/volume of speech (brief responses to questions) Affect: + anxious affect (highly) and + constricted affect Mood: + depressed mood ("lower than normal") and + anxious mood ("a 10/10") Thought Process: + thought blocking (appearing as though ruminations are preventing timly response to questions), + perseveration and + concrete thought process Thought Content: no hopelessness Suicidal Thoughts: denies suicidal thoughts, denies suicidal plan and denies suicidal intent Homicidal Thoughts: denies homicidal thoughts Hallucinations: no auditory hallucinations and no visual hallucinations Cognition: language grossly intact Estimated Intelligence: consistent with education level Insight: + impaired insight Judgement: + impaired judgement Vital Signs (Past 24 Hours) Last Vital Signs Temp 36.5 C 04/04/19 06:46 Pulse 105 H 04/04/19 09:43 Resp 20 04/04/19 06:46 BP 144/85 H 04/04/19 09:43 Pulse Ox 95 03/30/19 20:09 Results & Data Laboratory Results Laboratory Results - last 24 hr 04/04/19 07:10 Sodium 137 Potassium 3.9 Chloride 101 Carbon Dioxide 29 Anion Gap 7.0 BUN 15 Creatinine 0.64 Est Cr Clr Drug Dosing 66.1 Est GFR ( Amer) 104.1 Est GFR (Non-Af Amer) 89.8 BUN/Creatinine Ratio 22.8 H Glucose 104 H Calcium 8.7 Current Inpatient Medications Current Inpatient Medications: Current Inpatient Medications Acetaminophen (Tylenol) 650 mg PO Q4H PRN PRN Reason: Headache or Minor Fever Stop: 04/29/19 19:02 Al Hydrox/Mg Hydrox/Simethicone (Maalox) 30 ml PO Q4H PRN PRN Reason: GI Upset Stop: 04/29/19 19:02 Bismuth Subsalicylate (Kaopectate) 15 ml PO PRN PRN PRN Reason: Loose Stool Stop: 04/29/19 19:02 Clonazepam (Klonopin) 0.5 mg PO QAM [facility] Stop: 04/30/19 08:59 Last Admin: 04/04/19 07:54 Dose: 0.5 mg Documented by: Clonazepam (Klonopin) 0.5 mg PO BID PRN PRN Reason: Anxiety Stop: 04/30/19 09:43 Last Admin: 04/03/19 06:42 Dose: 0.5 mg Documented by: Hydroxyzine HCl (Vistaril) 25 mg PO Q4H PRN PRN Reason: Anxiety Stop: 04/29/19 19:02 Last Admin: 03/31/19 22:45 Dose: 25 mg Documented by: Lisinopril (Zestril) 15 mg PO DAILY PILI Stop: 05/03/19 08:59 Last Admin: 04/04/19 07:54 Dose: 15 mg Documented by: Magnesium Hydroxide (Milk Of Magnesia) 30 ml PO DAILY PRN PRN Reason: Heartburn Stop: 04/29/19 19:02 Mirtazapine (Remeron) 15 mg PO HS PILI Stop: 05/03/19 21:59 Last Admin: 04/03/19 21:26 Dose: 15 mg Documented by: Olanzapine (Zyprexa) 10 mg PO QPM PILI Stop: 04/30/19 20:59 Last Admin: 04/03/19 21:25 Dose: 10 mg Documented by: Potassium Chloride (Jaz Ciel Elix) 20 meq PO QAM PILI Stop: 05/01/19 13:14 Last Admin: 04/04/19 07:55 Dose: 20 meq Documented by: Sertraline HCl (Zoloft) 100 mg PO QAM PILI Stop: 05/01/19 08:59 Last Admin: 04/04/19 07:54 Dose: 100 mg Documented by: Sodium Chloride ([place] Nasal) 1 - 2 sprays NA PRN PRN PRN Reason: Nasal Dryness/Congestion Stop: 04/29/19 19:02 Trihexyphenidyl HCl (Artane) 2 mg PO BID PIIL Stop: 05/01/19 10:14 Last Admin: 04/04/19 07:54 Dose: 2 mg Documented by: Mental Health & Subst Abuse Tx Psychiatrist Name of Psychiatrist: DEYSI Astudillo Psychiatrist's Date of Appointment with Psychiatrist: 04/20/19 Time of Appointment with Psychiatrist: 2:00 p.m. Psychiatric Appointment Comment: [address] [facility] [place] [address] Therapist Name of Therapist: DEYSI Petersen Therapist's Date of Therapist Appointment: 04/19/19 Time of Therapist Appointment: 1:30 p.m. Therapy Appointment Comment: [address] [place] [address] Post Discharge Appointments Primary Care Physician Name Of Family Doctor: [facility] - Dr. [facility] Date of Appointment with PCP: 04/25/19 Time of Appointment with PCP: 10:30 a.m. Provider Appointment Comment: [address], [address], [place] [address] Contact Information Discharge Discharge Address: [address] [place] [id number] CPT Code CPT Code 59151
[2019-04-04] MEDS: OLANZapine 5 MG TABLET PO SCH (20:57)
[2019-04-04] MEDS: MIRTAZAPINE TAB 15 MG TAB PO SCH (20:58)
[2019-04-05] MEDS: TRIHEXYPHENIDYL HCL 2 MG TAB PO SCH ×2 (07:44→20:56)
[2019-04-05] MEDS: LISINOPRIL 10 MG TAB PO SCH (07:44)
[2019-04-05] MEDS: clonazePAM 0.5 MG TAB PO SCH (07:44)
[2019-04-05] MEDS: POTASSIUM CHLORIDE 20 MEQ TABCR PO SCH (07:44)
[2019-04-05] MEDS: SERTRALINE HCL 100 MG TABLET PO SCH (07:45)
--- NOTE | 2019-04-05 10:01 | Psychiatric Progress Note ---
Date of Service April 05, 2019 Impression / Recommendations Impression 73-year-old female with a history of bipolar 1 and generalized anxiety disorder who was admitted voluntarily with severe, debilitating anxiety, depression, and inability to function. She had electrolyte abnormalities on presentation due to poor p.o. intake, has not been sleeping, and has not been able to perform ADLs or get out of bed at home. She has lost weight, and is cognitively impaired, a very limited historian, and unable to give information about recent medication changes or even details about symptom evolution. Pt has been agreeable to medication adjustments to target her anxiety and depressive symptoms. Continuing to monitor for activation or triggering of manic symptoms as antidepressant medications are being adjusted. Inpatient treatment is medically necessary and remains the least restrictive option until patient is better able to demonstrate an ability to function in the outpatient setting. (1) Bipolar 1 disorder: 03/31 -current episode depressed with severe anxiety. -Clarify home med list, as there are some discrepancies (external medication history shows that she filled #30 olanzapine 10 mg tablets and hydroxyzine 25 mg tablets on 03/18/2019, but admission medication reconciliation indicates olanzapine 15 mg every afternoon and hydralazine 25 mg every afternoon). Nursing staff to call her and clarify this: Patient is not prescribed hydralazine, will remove medication. She did receive a dose last night, and blood pressure this morning was elevated 163/89, but on repeat 124/71. -Increase sertraline to 100 mg daily to target mood and anxiety, and watch for activation/mood stabilization. -It is unclear if her home dose of olanzapine is 10 or 15 mg; she received 15 mg last night, and I am concerned for EPS given her cogwheeling on exam and severe restlessness. Order benztropine 0.5 mg as needed, and reduce olanzapine to 10 milligrams at bedtime. Per she was only on 10mg olanzapine at home. May need to reduce dose further or switch to another antipsychotic if EPS does not improve. -Fasting lipid profile and glucose performed on 09/30/2018 for monitoring on an atypical antipsychotic, and were within normal limits. 04/01 -Contributing to the patient's severe anxiety may be akathisia associated with olanzapine and, possibly, sertraline. I have advised the patient accordingly, and she accepts my recommendation for a standing dose of Artane (trihexyphenidyl) -Patient otherwise indicates that she feels that she has been tolerating olanzapine well, and reports that she feels this medication has been helpful to her. -The patient's dose of sertraline has been increased to 100 mg daily 04/02 -Patient more unsteady today. Will hold any further doses of diphenhydramine for now. She does not have any cogwheeling; once she is able to relax the paratonia disappears -Patient now on moderate dose of SSRI. Reviewed she had been manic at last presentation. Considering Remeron trial which may help with restlessness and anxiety and allow for reduction of some of the anticholinergic medication she has been started on however patient appeared overwhelmed when attempting to discuss today and will defer for reconsideration tomorrow -patient refused physical therapy referral for imbalance today 04/04 - Continue current medication regimen, consider titration of mirtazapine with observation for activation 04/05 - Titrating mirtazapine to 30mg this evening - continue to monitor for possible activation and triggering of manic symptoms - Once efficacy is apparent, consider tapering sertraline to achieve antidepressant monotherapy - Continue remainder of medication regimen unchanged (2) Generalized anxiety disorder: 03/31 -patient extremely anxious, with negative, ruminative thoughts, and severe restlessness. -Increase sertraline as above. -At home dose of hydroxyzine 25 mg at bedtime, and offer 25 mg every 4 hours as needed anxiety. -Continue clonazepam 0.5 mg every morning, and add 0.5 mg dose twice daily as needed if hydroxyzine an effective, but monitor for unsteadiness and oversedation. 04/01/19 -As noted above, some of the patient's anxious distress may be secondary to eps side effects (akathisia). -On examination, the patient does have cogwheel rigidity. However, she tells me that she feels that she is somewhat less anxious and notes that the medications for her anxiety "may be helping." 04/02 -Patient remains highly anxious. Considered alternative options for bedtime hydroxyzine to reduce anticholinergic burden. Elected to trial the Remeron at 15 mg p.o. nightly which may help off label for feelings of restlessness. Hopefully this will also help to reduce her anxiety and provide some appetite st imulation but will need to watch for mood cycling in combination with the sertraline. If she does well with this agent, could consider using it as antidepressant monotherapy (tapering her off the Zoloft) 04/04 - Continue current medication regimen - consider increase or mirtazapine and possible taper of sertraline as outlined above; wanting to ensure tolerance prior to switching to mirtazapine as monotherapy 04/05 - Titrating mirtazapine to 30mg this evening; will continue sertraline at 100mg until efficacy of mirtazapine can be determined - Continue remainder of medication regimen unchanged (3) Hyponatremia: 03/31 -sodium 129 on initial presentation, improved to 130 after 1 liter NS in the ER. Encourage good p.o. intake, and recheck BMP tomorrow. 04/01 -current sodium level is within normal limits. 04/03 -Remeron low risk for hyponatremia 04/04 - BMP reviewed with patient today; hyponatremia now normalized at 137 - Reporting improved nutritional intake (4) Hypertension: 03/31 -continue lisinopril 10 mg daily. Monitor BP. 04/02 -BP again asymptomatically elevated this morning. We will increase lisinopril to 15 mg daily 04/03 -Tolerated increased dose of lisinopril adequately. Blood pressures remain elevated in a.m.'s. 04/05 - BP's remain elevated in the AMs. Event rechecks after medication administration have been mildly elevated. Will trial lisinopril 20mg tomorrow. - Continue to monitor (5) Hypokalemia: 04/01 -The patient's potassium level has remained 3.1 for 2 days now, within the context of poor oral intake. -Encourage oral intake. -Potassium chloride supplement 20 mEq daily x 6. 04/02 -Repeat BMP ordered for Thursday for sodium and potassium monitoring. 04/04 - Reviewed BMP with patient, hypokalemia now normalized - 3.9 - Continue to encourage adequate oral intake - Pt requesting trial of potassium supplement in tablet form Risk Factors Assessment Male: No : Yes Do You Have Access To A Gun?: Yes ( has guns that are locked) Health Problems: Yes Mental Health Diagnoses: Yes Substance Use Disorders: No Previous Attempt: No Family History of Suicide: No Previous Psychiatric Hospitalization: Yes Hopelessness: Yes Smoker: No Protective Factors Assessment : Yes Responsible for Young Children: No Employed: No Supportive Family: Yes Good Rapport with Provider: Yes Interval History Identifying Information VALENTINA CLAKR is a 73-year-old F who currently lives in [place] with her , has a history of bipolar disorder type I and generalized anxiety disorder, and was admitted on 03/30/19 19:35 on a 201 voluntary commitment for severe anxiety and inability to function. Chief Complaint "Do I have to? I am not sure I can." Review of Systems Notes Constitutional: reports improvements in restlessness Cardiovascular: denied Respiratory: denied Gastrointestinal: denied Neurological: denied Psychiatric: denies symptoms other than stated above Total of at least 10 systems reviewed, pertinent positives as above and in HPI. Sleep Information Total Hours of Sleep: 8 Sleep Comments: awake and to the bathrom at [id number] about not sl eepg well last night-remimded it was still only 0200. needed asssit to straighten out her bed linens to resettle for sleep. Meal Information Percent Meal Consumed - Breakfast: 100 Percent Meal Consumed - Lunch: 50 Percent Meal Consumed - Dinner: 25 Subjective Subjective Patient was seen & assessed and interval progress reviewed with nursing and social work. Staff reports the patient appears to be improved in the morning following her dose of clonazepam. She does appear more anxious in the evening. Patient was able to take a shower and do laundry with minimal assistance yesterday. She did receive a visit from her last evening. Patient was seen today to assess progress since admission. She initially asks if she is required to meet with a provider. Counselor who is sitting with patient informed this provider that the patient was not interested in talking about her 'negative thoughts'. This provider said we could talk about positive ones instead, and patient was willing to come back to the office for a few moments. We discussed several heel dipper topics, and patient demonstrated difficulty with even these discussions. She continues to answer many questions with "I do not know." This included some questions about her favorite color, what she ate for breakfast, and activity she participated in last evening. Patient does admit to ongoing low mood and excessive anxiety. She does recall that her feeling wired today and community meeting was "anxiety." Patient does admit that she has been feeling less restless recently, and states she has been tolerating medication adjustments without any notable concerns. Discussed recommendation that mirtazapine be titrated to further target depression, with hopeful benefit for anxiety, sleep, and appetite as well. Patient was agreeable to this recommendation and stated, "but I do not want you to pull me off my other meds too soon. That is what happened before." Patient was asked if she had anything else to discuss and she stated "I do not want to talk about all these terrible thoughts." It is unclear what thoughts she is having, as she has reportedly not discussed with staff. Patient was encouraged to utilize staff when she feels comfortable to process these thoughts and help her work through them. Patient denies suicidality today, but admits she would still not be ready for discharge soon. She denies other acute needs or concerns at this time. Physical Exam Psychiatric Orientation: alert, oriented to person, oriented to place and cooperative (Superficially) Apperance: appropriately dressed (Casually, in jeans and sweatshirt) Eye Contact: + fair eye contact Motor Behavior: steady gait and station (Cautious, but stable ambulation), + psychomotor retardation and + tremor Speech: normal rate/rhythm/volume of speech (Often responding with "I do not know", prolonged pauses prior to answering questions) Affect: + anxious affect (Highly) and + blunted affect Mood: + depressed mood (Rating her mood a "1/10") and + anxious mood ("Anxiety") Thought Process: + perseveration (And ruminations) and + concrete thought process Thought Content: + preoccupation (With "these negative thoughts", which she will not discuss at this time) Suicidal Thoughts: denies suicidal thoughts and denies suicidal intent Homicidal Thoughts: denies homicidal thoughts Hallucinations: no auditory hallucinations and no visual hallucinations Cognition: attention grossly intact and language grossly intact Estimated Intelligence: consistent with education level Insight: + impaired insight Judgement: + impaired judgement Vital Signs (Past 24 Hours) Last Vital Signs Temp 36.3 C L 04/05/19 06:33 Pulse 101 H 04/05/19 06:33 Resp 20 04/05/19 06:33 BP 189/84 H 04/05/19 06:33 Pulse Ox 95 03/30/19 20:09 Results & Data Current Inpatient Medications Current Inpatient Medications: Current Inpatient Medications Acetaminophen (Tylenol) 650 mg PO Q4H PRN PRN Reason: Headache or Minor Fever Stop: 04/29/19 19:02 Al Hydrox/Mg Hydrox/Simethicone (Maalox) 30 ml PO Q4H PRN PRN Reason: GI Upset Stop: 04/29/19 19:02 Bismuth Subsalicylate (Kaopectate) 15 ml PO PRN PRN PRN Reason: Loose Stool Stop: 04/29/19 19:02 Clonazepam (Klonopin) 0.5 mg PO QAM PILI Stop: 04/30/19 08:59 Last Admin: 04/05/19 07:44 Dose: 0.5 mg Documented by: Clonazepam (Klonopin) 0.5 mg PO BID PRN PRN Reason: Anxiety Stop: 04/30/19 09:43 Last Admin: 04/03/19 06:42 Dose: 0.5 mg Documented by: Hydroxyzine HCl (Vistaril) 25 mg PO Q4H PRN PRN Reason: Anxiety Stop: 04/29/19 19:02 Last Admin: 03/31/19 22:45 Dose: 25 mg Documented by: Lisinopril (Zestril) 15 mg PO DAILY PILI Stop: 05/03/19 08:59 Last Admin: 04/05/19 07:44 Dose: 15 mg Documented by: Magnesium Hydroxide (Milk Of Magnesia) 30 ml PO DAILY PRN PRN Reason: Heartburn Stop: 04/29/19 19:02 Mirtazapine (Remeron) 15 mg PO HS [facility] Stop: 05/03/19 21:59 Last Admin: 04/04/19 20:58 Dose: 15 mg Documented by: Olanzapine (Zyprexa) 10 mg PO QPM PILI Stop: 04/30/19 20:59 Last Admin: 04/04/19 20:57 Dose: 10 mg Documented by: Potassium Chloride (Jaz Ciel Elix) 20 meq PO QAM [facility] Stop: 05/01/19 13:14 Last Admin: 04/04/19 07:55 Dose: 20 meq Documented by: Potassium Chloride (Klor-Con M20) 20 meq PO QAM [facility] Stop: 05/05/19 08:59 Last Admin: 04/05/19 07:44 Dose: 20 meq Documented by: Sertraline HCl (Zoloft) 100 mg PO QAM [facility] Stop: 05/01/19 08:59 Last Admin: 04/05/19 07:45 Dose: 100 mg Documented by: Sodium Chloride (Ballard Nasal) 1 - 2 sprays NA PRN PRN PRN Reason: Nasal Dryness/Congestion Stop: 04/29/19 19:02 Trihexyphenidyl HCl (Artane) 2 mg PO BID PILI Stop: 05/01/19 10:14 Last Admin: 04/05/19 07:44 Dose: 2 mg Documented by: Mental Health & Subst Abuse Tx Psychiatrist Name of Psychiatrist: BENJAMIN Carey Astudillo Psychiatrist's Date of Appointment with Psychiatrist: 04/20/19 Time of Appointment with Psychiatrist: 2:00 p.m. Psychiatric Appointment Comment: [address] [facility] [place] [address] Therapist Name of Therapist: DEYSI Petersen Therapist's Date of Therapist Appointment: 04/19/19 Time of Therapist Appointment: 1:30 p.m. Therapy Appointment Comment: [address] [facility] [place] [address] Post Discharge Appointments Primary Care Physician Name Of Family Doctor: [facility] - Dr. Ayala [facility] Date of Appointment with PCP: 04/25/19 Time of Appointment with PCP: 10:30 a.m. Provider Appointment Comment: [address], [address], [place] [address] Contact Information Discharge Discharge Address: [address] [place], [place] [id number] CPT Code CPT Code 15170
[2019-04-05] MEDS: clonazePAM 0.5 MG TAB PO PRN (14:17)
[2019-04-05] MEDS: OLANZapine 5 MG TABLET PO SCH (20:56)
[2019-04-05] MEDS: MIRTAZAPINE TAB 15 MG TAB PO SCH (20:56)
[2019-04-06] MEDS: POTASSIUM CHLORIDE 20 MEQ TABCR PO SCH (08:19)
[2019-04-06] MEDS: TRIHEXYPHENIDYL HCL 2 MG TAB PO SCH ×2 (08:19→20:31)
[2019-04-06] MEDS: clonazePAM 0.5 MG TAB PO SCH (08:19)
[2019-04-06] MEDS: LISINOPRIL 10 MG TAB PO SCH (08:20)
[2019-04-06] MEDS: SERTRALINE HCL 100 MG TABLET PO SCH (08:20)
--- NOTE | 2019-04-06 11:23 | Psychiatric Progress Note ---
Date of Service April 06, 2019 Impression / Recommendations Impression 73-year-old female with a history of bipolar 1 and generalized anxiety disorder who was admitted voluntarily with severe, debilitating anxiety, depression, and inability to function. She had electrolyte abnormalities on presentation due to poor p.o. intake, was not sleeping, performing ADLs or getting out of bed at home. She has lost weight, and is cognitively impaired, and a limited historian. She has had multiple medication adjustments to target her anxiety and depressive symptoms. Her care is complex due to a polar type I with history of freedom, trying to utilize medications to target anxiety while avoiding activation/freedom. Inpatient treatment is medically necessary and remains the least restrictive option until patient is better able to demonstrate an ability to function in the outpatient setting. (1) Bipolar 1 disorder: 03/31 -current episode depressed with severe anxiety. -Clarify home med list, as there are some discrepancies (external medication history shows that she filled #30 olanzapine 10 mg tablets and hydroxyzine 25 mg tablets on 03/18/2019, but admission medication reconciliation indicates olanzapine 15 mg every afternoon and hydralazine 25 mg every afternoon). Nursing staff to call her and clarify this: Patient is not prescribed hydralazine, will remove medication. She did receive a dose last night, and blood pressure this morning was elevated 163/89, but on repeat 124/71. -Increase sertraline to 100 mg daily to target mood and anxiety, and watch for activation/mood stabilization. -It is unclear if her home dose of olanzapine is 10 or 15 mg; she received 15 mg last night, and I am concerned for EPS given her cogwheeling on exam and severe restlessness. Order benztropine 0.5 mg as needed, and reduce olanzapine to 10 milligrams at bedtime. Per she was only on 10mg olanzapine at home. May need to reduce dose further or switch to another antipsychotic if EPS does not improve. -Fasting lipid profile and glucose performed on 09/30/2018 for monitoring on an atypical antipsychotic, and were within normal limits. 04/01 -Contributing to the patient's severe anxiety may be akathisia associated with olanzapine and, possibly, sertraline. I have advised the patient accordingly, and she accepts my recommendation for a standing dose of Artane (trihexyphenidyl) -Patient otherwise indicates that she feels that she has been tolerating olanzapine well, and reports that she feels this medication has been helpful to her. -The patient's dose of sertraline has been increased to 100 mg daily 04/02 -Patient more unsteady today. Will hold any further doses of diphenhydramine for now. She does not have any cogwheeling; once she is able to relax the paratonia disappears -Patient now on moderate dose of SSRI. Reviewed she had been manic at last presentation. Considering Remeron trial which may help with restlessness and anxiety and allow for reduction of some of the anticholinergic medication she has been started on however patient appeared overwhelmed when attempting to discuss today and will defer for reconsideration tomorrow -patient refused physical therapy referral for imbalance today 04/04 - Continue current medication regimen, consider titration of mirtazapine with observation for activation 04/05 - Titrating mirtazapine to 30mg this evening - continue to monitor for pos sible activation and triggering of manic symptoms - Once efficacy is apparent, consider tapering sertraline to achieve antidepressant monotherapy - Continue remainder of medication regimen unchanged 04/06 - Patient reports mood and restlessness are slightly improved. - Worsening tachycardia with heart rate as high as 130, with worsening after Artane was started. As this medication can cause tachycardia, will decrease it to 1 mg twice daily. (2) Generalized anxiety disorder: 03/31 -patient extremely anxious, with negative, ruminative thoughts, and severe restlessness. -Increase sertraline as above. -At home dose of hydroxyzine 25 mg at bedtime, and offer 25 mg every 4 hours as needed anxiety. -Continue clonazepam 0.5 mg every morning, and add 0.5 mg dose twice daily as needed if hydroxyzine an effective, but monitor for unsteadiness and oversedation. 04/01/19 -As noted above, some of the patient's anxious distress may be secondary to eps side effects (akathisia). -On examination, the patient does have cogwheel rigidity. However, she tells me that she feels that she is somewhat less anxious and notes that the medications for her anxiety "may be helping." 04/02 -Patient remains highly anxious. Considered alternative options for bedtime hydroxyzine to reduce anticholinergic burden. Elected to trial the Remeron at 15 mg p.o. nightly which may help off label for feelings of restlessness. Hopefully this will also help to reduce her anxiety and provide some appetite stimulation but will need to watch for mood cycling in combination with the sertraline. If she does well with this agent, could consider using it as antidepressant monotherapy (tapering her off the Zoloft) 04/04 - Continue current medication regimen - consider increase or mirtazapine and possible taper of sertraline as outlined above; wanting to ensure tolerance prior to switching to mirtazapine as monotherapy 04/05 - Titrating mirtazapine to 30mg this evening; will continue sertraline at 100mg until efficacy of mirtazapine can be determined - Continue remainder of medication regimen unchanged (3) Hyponatremia: 03/31 -sodium 129 on initial presentation, improved to 130 after 1 liter NS in the ER. Encourage good p.o. intake, and recheck BMP tomorrow. 04/01 -current sodium level is within normal limits. 04/03 - Remeron low risk for hyponatremia 04/04 - BMP reviewed with patient today; hyponatremia now normalized at 137 - Reporting improved nutritional intake (4) Hypertension: 03/31 -continue lisinopril 10 mg daily. Monitor BP. 04/02 -BP again asymptomatically elevated this morning. We will increase lisinopril to 15 mg daily 04/03 -Tolerated increased dose of lisinopril adequately. Blood pressures remain elevated in a.m.'s. 04/05 - BP's remain elevated in the AMs. Event rechecks after medication administration have been mildly elevated. Will trial lisinopril 20mg tomorrow. - Continue to monitor 04/06 -Blood pressure has normalized, but remains tachycardic. Heart rate as high as 130 today. Will decrease Artane as above his heart rate is increased since it was started and it can cause tachycardia. (5) Hypokalemia: 04/01 -The patient's potassium level has remained 3.1 for 2 days now, within the context of poor oral intake. -Encourage oral intake. -Potassium chloride supplement 20 mEq daily x 6. 04/02 -Repeat BMP ordered for Thursday morning for sodium and potassium monitoring. 04/04 - Reviewed BMP with patient, hypokalemia now normalized - 3.9 - Continue to encourage adequate oral intake - Pt requesting trial of potassium supplement in tablet form Risk Factors Assessment Male: No : Yes Do You Have Access To A Gun?: Yes ( has guns that are locked) Health Problems: Yes Mental Health Diagnoses: Yes Substance Use Disorders: No Previous Attempt: No Family History of Suicide: No Previous Psychiatric Hospitalization: Yes Hopelessness: Yes Smoker: No Protective Factors Assessment : Yes Responsible for Young Children: No Employed: No Supportive Family: Yes Good Rapport with Provider: Yes Interval History Identifying Information VALENTINA CLARK is a 73-year-old F who currently lives in [place] with her , has a history of bipolar disorder type I and generalized anxiety disorder, and was admitted on 03/30/19 19:35 on a 201 voluntary commitment for severe anxiety and inability to function. Chief Complaint "Don't want to do this, don't want to talk". Review of Systems Sleep Information Total Hours of Sleep: 8 Sleep Comments: pt on q-15 minute checks Meal Information Percent Meal Consumed - Breakfast: 50 Percent Meal Consumed - Lunch: 50 Percent Meal Consumed - Dinner: 0 Nutrition Comment: Bites Subjective Subjective Patient was seen & assessed and interval progress reviewed with treatment team. Staff report she attended groups yesterday, but said she was not doing well, was having bad thoughts, and did not want to talk about them. She had trouble expressing herself or engaging in the groups, and stated she felt unable to do basic tasks, for example cutting her food at dinnertime. She endorsed hopelessness, stating she did not think she would ever get better. Staff observed she often has a very pained expression on her face. Her called and spoke with staff, stating that the patient worries a lot at baseline, but that she has been significantly more anxious since last June when she took herself off clonazepam and sertraline. He described her as a "God-fearing" woman, and said that she has intrusive, very disturbing thoughts that are sexual in nature, that she does not like to talk about. She continues to require significant reassurance from staff, and has been able to attend to some of her ADLs with encouragement. She requested and received as needed clonazepam. On my assessment, the patient was reluctant to come to the interview room, saying she really didn't want to talk. She reports her day has been "so-so" so far, and "don't feel like doing anything." She has been coloring and going to some groups, but says they're "stressful," although can't explain why. She thinks mood has improved slightly since admission, "I think the medicine is helping some," but still feels depressed, hopeless, and anxious. Denies SI and feels safe here, but does not think that she could care for herself outside of the hospital. Says she is having to force herself to to eat. Sleep was good last night, stating "it wasn't one of those bad nights." Physical Exam Psychiatric Orientation: alert and cooperative (Partially, repeatedly states she does not really want to talk, but does answer questions) Apperance: appropriately dressed, + disheveled and appeared stated age Seated in no acute distress. Consistently has a very pained, distraught expression on her face. Eye Contact: + poor eye contact Keeps gaze averted. Short, shuffling gait Minimal, nonspontaneous, brief answers. Affect: + anxious affect, + constricted affect and mood congruent with affect Appears distraught Mood: + depressed mood and + anxious mood Thought Process: goal directed thought process Thought Content: + hopelessness and + self deprecation Reports "bad thoughts," refuses to elaborate Suicidal Thoughts: denies suicidal thoughts Homicidal Thoughts: denies homicidal thoughts Hallucinations: no auditory hallucinations and no visual hallucinations Cognition: attention grossly intact and language grossly intact Insight: + impaired insight Judgement: + impaired judgement Vital Signs (Past 24 Hours) Last Vital Signs Temp 36.6 C 04/06/19 06:58 Pulse 130 H 04/06/19 06:59 Resp 20 04/06/19 06:58 BP 127/83 04/06/19 06:59 Pulse Ox 95 03/30/19 20:09 Results & Data Current Inpatient Medications Current Inpatient Medications: Current Inpatient Medications Acetaminophen (Tylenol) 650 mg PO Q4H PRN PRN Reason: Headache or Minor Fever Stop: 04/29/19 19:02 Al Hydrox/Mg Hydrox/Simethicone (Maalox) 30 ml PO Q4H PRN PRN Reason: GI Upset Stop: 04/29/19 19:02 Bismuth Subsalicylate (Kaopectate) 15 ml PO PRN PRN PRN Reason: Loose Stool Stop: 04/29/19 19:02 Clonazepam (Klonopin) 0.5 mg PO QAM [facility] Stop: 04/30/19 08:59 Last Admin: 04/06/19 08:19 Dose: 0.5 mg Documented by: Clonazepam (Klonopin) 0.5 mg PO BID PRN PRN Reason: Anxiety Stop: 04/30/19 09:43 Last Admin: 04/05/19 14:17 Dose: 0.5 mg Documented by: Hydroxyzine HCl (Vistaril) 25 mg PO Q4H PRN PRN Reason: Anxiety Stop: 04/29/19 19:02 Last Admin: 03/31/19 22:45 Dose: 25 mg Documented by: Lisinopril (Zestril) 20 mg PO DAILY [facility] Stop: 05/06/19 08:59 Last Admin: 04/06/19 08:20 Dose: 20 mg Documented by: Magnesium Hydroxide (Milk Of Magnesia) 30 ml PO DAILY PRN PRN Reason: Heartburn Stop: 04/29/19 19:02 Mirtazapine (Remeron) 30 mg PO HS [facility] Stop: 05/05/19 21:59 Last Admin: 04/05/19 20:56 Dose: 30 mg Documented by: Olanzapine (Zyprexa) 10 mg PO QPM [facility] Stop: 04/30/19 20:59 Last Admin: 04/05/19 20:56 Dose: 10 mg Documented by: Potassium Chloride (Jaz Ciel Elix) 20 meq PO QAM [facility] Stop: 05/01/19 13:14 Last Admin: 04/04/19 07:55 Dose: 20 meq Documented by: Potassium Chloride (Klor-Con M20) 20 meq PO QAM [facility] Stop: 05/05/19 08:59 Last Admin: 04/06/19 08:19 Dose: 20 meq Documented by: Sertraline HCl (Zoloft) 100 mg PO QAM [facility] Stop: 05/01/19 08:59 Last Admin: 04/06/19 08:20 Dose: 100 mg Documented by: Sodium Chloride ([place] Nasal) 1 - 2 sprays NA PRN PRN PRN Reason: Nasal Dryness/Congestion Stop: 04/29/19 19:02 Trihexyphenidyl HCl (Artane) 2 mg PO BID [facility] Stop: 05/01/19 10:14 Last Admin: 04/06/19 08:19 Dose: 2 mg Documented by: Mental Health & Subst Abuse Tx Psychiatrist Name of Psychiatrist: [facility] Carey Astudillo Psychiatrist's Date of Appointment with Psychiatrist: 04/20/19 Time of Appointment with Psychiatrist: 2:00 p.m. Psychiatric Appointment Comment: [address] [place] [address] Therapist Name of Therapist: BENJAMIN Carey Petersen Therapist's Date of Therapist Appointment: 04/19/19 Time of Therapist Appointment: 1:30 p.m. Therapy Appointment Comment: [address] [place] [address] Post Discharge Appointments Primary Care Physician Name Of Family Doctor: [facility] - Dr. Ayala [facility] Date of Appointment with PCP: 04/25/19 Time of Appointment with PCP: 10:30 a.m. Provider Appointment Comment: [address], [address], [place] [address] Contact Information Discharge Discharge Address: [address] [place] [id number] CPT Code CPT Code 57127
[2019-04-06] MEDS: MIRTAZAPINE TAB 15 MG TAB PO SCH (20:30)
[2019-04-06] MEDS: OLANZapine 5 MG TABLET PO SCH (20:31)
[2019-04-07] MEDS: TRIHEXYPHENIDYL HCL 2 MG TAB PO SCH ×2 (07:25→20:39)
[2019-04-07] MEDS: LISINOPRIL 10 MG TAB PO SCH (07:25)
[2019-04-07] MEDS: clonazePAM 0.5 MG TAB PO SCH (07:25)
[2019-04-07] MEDS: SERTRALINE HCL 100 MG TABLET PO SCH (07:26)
--- NOTE | 2019-04-07 10:53 | Psychiatric Progress Note ---
Date of Service April 07, 2019 Impression / Recommendations Impression 73-year-old female with a history of bipolar 1 and generalized anxiety disorder who was admitted voluntarily with severe, debilitating anxiety, depression, and inability to function. She had electrolyte abnormalities on presentation due to poor p.o. intake, was not sleeping, performing ADLs or getting out of bed at home. She has lost weight, and is cognitively impaired, and a limited historian. She has had multiple medication adjustments to target her anxiety and depressive symptoms. Her care is complex due to a polar type I with history of freedom, trying to utilize medications to target anxiety while avoiding activation/freedom and akathisia. Inpatient treatment is medically necessary and remains the least restrictive option until patient is better able to demonstrate an ability to function in the outpatient setting. (1) Bipolar 1 disorder: 03/31 -current episode depressed with severe anxiety. -Clarify home med list, as there are some discrepancies (external medication history shows that she filled #30 olanzapine 10 mg tablets and hydroxyzine 25 mg tablets on 03/18/2019, but admission medication reconciliation indicates olanzapine 15 mg every afternoon and hydralazine 25 mg every afternoon). Nursing staff to call her and clarify this: Patient is not prescribed hydralazine, will remove medication. She did receive a dose last night, and blood pressure this morning was elevated 163/89, but on repeat 124/71. -Increase sertraline to 100 mg daily to target mood and anxiety, and watch for activation/mood stabilization. -It is unclear if her home dose of olanzapine is 10 or 15 mg; she received 15 mg last night, and I am concerned for EPS given her cogwheeling on exam and severe restlessness. Order benztropine 0.5 mg as needed, and reduce olanzapine to 10 milligrams at bedtime. Per she was only on 10mg olanzapine at home. May need to reduce dose further or switch to another antipsychotic if EPS does not improve. -Fasting lipid profile and glucose performed on 09/30/2018 for monitoring on an atypical antipsychotic, and were within normal limits. 04/01 -Contributing to the patient's severe anxiety may be akathisia associated with olanzapine and, possibly, sertraline. I have advised the patient accordingly, and she accepts my recommendation for a standing dose of Artane (trihexyphenidyl) -Patient otherwise indicates that she feels that she has been tolerating olanzapine well, and reports that she feels this medication has been helpful to her. -The patient's dose of sertraline has been increased to 100 mg daily 04/02 -Patient more unsteady today. Will hold any further doses of diphenhydramine for now. She does not have any cogwheeling; once she is able to relax the paratonia disappears -Patient now on moderate dose of SSRI. Reviewed she had been manic at last presentation. Considering Remeron trial which may help with restlessness and anxiety and allow for reduction of some of the anticholinergic medication she has been started on however patient appeared overwhelmed when attempting to discuss today and will defer for reconsideration tomorrow -patient refused physical therapy referral for imbalance today 04/04 - Continue current medication regimen, consider titration of mirtazapine with observation for activation 04/05 - Titrating mirtazapine to 30mg this evening - continue to monitor for possible activation and triggering of manic symptoms - Once efficacy is apparent, consider tapering sertraline to achieve antidepressant monotherapy - Continue remainder of medication regimen unchanged 04/06 - Patient reports mood and restlessness are slightly improved. - Worsening tachycardia with heart rate as high as 130, with worsening after Artane was started. As this medication can cause tachycardia, will decrease it to 1 mg twice daily. 04/07 -Tachycardia has resolved with lowered Artane dose. Restlessness is improved. (2) Generalized anxiety disorder: 03/31 -patient extremely anxious, with negative, ruminative thoughts, and severe restlessness. -Increase sertraline as above. -At home dose of hydroxyzine 25 mg at bedtime, and offer 25 mg every 4 hours as needed anxiety. -Continue clonazepam 0.5 mg every morning, and add 0.5 mg dose twice daily as needed if hydroxyzine an effective, but monitor for unsteadiness and oversedation. 04/01/19 -As noted above, some of the patient's anxious distress may be secondary to eps side effects (akathisia). -On examination, the patient does have cogwheel rigidity. However, she tells me that she feels that she is somewhat less anxious and notes that the medications for her anxiety "may be helping." 04/02 -Patient remains highly anxious. Considered alternative options for bedtime hydroxyzine to reduce anticholinergic burden. Elected to trial the Remeron at 15 mg p.o. nightly which may help off label for feelings of restlessness. Hopefully this will also help to reduce her anxiety and provide some appetite stimulation but will need to watch for mood cycling in combination with the sertraline. If she does well with this agent, could consider using it as antide pressant monotherapy (tapering her off the Zoloft) 04/04 - Continue current medication regimen - consider increase or mirtazapine and possible taper of sertraline as outlined above; wanting to ensure tolerance prior to switching to mirtazapine as monotherapy 04/05 - Titrating mirtazapine to 30mg this evening; will continue sertraline at 100mg until efficacy of mirtazapine can be determined - Continue remainder of medication regimen unchanged (3) Hyponatremia: 03/31 -sodium 129 on initial presentation, improved to 130 after 1 liter NS in the ER. Encourage good p.o. intake, and recheck BMP tomorrow. 04/01 -current sodium level is within normal limits. 04/03 - Remeron low risk for hyponatremia 04/04 - BMP reviewed with patient today; hyponatremia now normalized at 137 - Reporting improved nutritional intake (4) Hypertension: 03/31 -continue lisinopril 10 mg daily. Monitor BP. 04/02 -BP again asymptomatically elevated this morning. We will increase lisinopril to 15 mg daily 04/03 -Tolerated increased dose of lisinopril adequately. Blood pressures remain elevated in a.m.'s. 04/05 - BP's remain elevated in the AMs. Event rechecks after medication administration have been mildly elevated. Will trial lisinopril 20mg tomorrow. - Continue to monitor 04/06 -Blood pressure has normalized, but remains tachycardic. Heart rate as high as 130 today. Will decrease Artane as above his heart rate is increased since it was started and it can cause tachycardia. (5) Hypokalemia: 04/01 -The patient's potassium level has remained 3.1 for 2 days now, within the context of poor oral intake. -Encourage oral intake. -Potassium chloride supplement 20 mEq daily x 6. 04/02 -Repeat BMP ordered for Thursday morning for sodium and potassium monitoring. 04/04 - Reviewed BMP with patient, hypokalemia now normalized - 3.9 - Continue to encourage adequate oral intake - Pt requesting trial of potassium supplement in tablet form Risk Factors Assessment Male: No : Yes Do You Have Access To A Gun?: Yes ( has guns that are locked) Health Problems: Yes Mental Health Diagnoses: Yes Substance Use Disorders: No Previous Attempt: No Family History of Suicide: No Previous Psychiatric Hospitalization: Yes Hopelessness: Yes Smoker: No Protective Factors Assessment : Yes Responsible for Young Children: No Employed: No Supportive Family: Yes Good Rapport with Provider: Yes Interval History Identifying Information VALENTINA CLARK is a 73-year-old F who currently lives in [place] with her , has a history of bipolar disorder type I and generalized anxiety disorder, and was admitted on 03/30/19 19:35 on a 201 voluntary commitment for severe anxiety and inability to function. Chief Complaint "About the same". Review of Systems Sleep Information Total Hours of Sleep: 7.5 Sleep Comments: pt on q-15 minute checks Meal Information Percent Meal Consumed - Breakfast: 100 Percent Meal Consumed - Lunch: 50 Percent Meal Consumed - Dinner: 50 Nutrition Comment: Bites Subjective Subjective Patient was seen & assessed and interval progress reviewed with nursing and social work. Staff report she continues to struggle with ADLs, requiring significant assistance and reassurance from staff. She did a shower, but was fearful of getting her hair wet, so did not wash it. She is taking medications, but requires assistance and support, as she told staff she does not think she will be able to swallow them. She told staff that she was having very disturbing, intrusive thoughts of hurting her , and would not tell the clinicians because she was afraid she would get "locked up." On my assessment, the patient reports mood is "about the same," depressed, rates it a 1 out of 10. She thinks medication is helping to "calm me down a little," and restlessness is improved. Appetite is "a little better," and sleep is "so so." She is going to groups and says they help "somewhat." She continues to endorse negative thoughts, "they've been down." She says she "can't tell you" when asked what she's thinking about. Reassured her that she can talk about disturbing thoughts and won't be in trouble (as she'd told nursing), but she continues to say she "can't talk about it, I just don't want to." Physical Exam Psychiatric Orientation: alert and cooperative (Partially; refuses to talk about her thoughts, evasive) Apperance: appropriately dressed and appeared stated age Thin, mildly disheveled Eye Contact: + poor eye contact Motor Behavior: steady gait and station Slowed movements Minimal speech Affect: + depressed affect, + anxious affect, + constricted affect and mood congruent with affect Mood: + depressed mood and + anxious mood Thought Process: goal directed thought process Thought Content: + hopelessness and + guilt Intrusive, negative thoughts that she will discuss Suicidal Thoughts: denies suicidal thoughts Homicidal Thoughts: + reports homicidal thoughts Reported to staff that she was having intrusive thoughts of harming her , which are ego dystonic Hallucinations: no auditory hallucinations and no visual hallucinations Insight: + impaired insight Judgement: + impaired judgement Vital Signs (Past 24 Hours) Last Vital Signs Temp 36.8 C 04/07/19 06:47 Pulse 65 04/07/19 06:47 Resp 20 04/07/19 06:47 BP 174/75 H 04/07/19 06:47 Pulse Ox 95 03/30/19 20:09 Results & Data Current Inpatient Medications Current Inpatient Medications: Current Inpatient Medications Acetaminophen (Tylenol) 650 mg PO Q4H PRN PRN Reason: Headache or Minor Fever Stop: 04/29/19 19:02 Al Hydrox/Mg Hydrox/Simethicone (Maalox) 30 ml PO Q4H PRN PRN Reason: GI Upset Stop: 04/29/19 19:02 Bismuth Subsalicylate (Kaopectate) 15 ml PO PRN PRN PRN Reason: Loose Stool Stop: 04/29/19 19:02 Clonazepam (Klonopin) 0.5 mg PO QAM PILI Stop: 04/30/19 08:59 Last Admin: 04/07/19 07:25 Dose: 0.5 mg Documented by: Clonazepam (Klonopin) 0.5 mg PO BID PRN PRN Reason: Anxiety Stop: 04/30/19 09:43 Last Admin: 04/05/19 14:17 Dose: 0.5 mg Documented by: Hydroxyzine HCl (Vistaril) 25 mg PO Q4H PRN PRN Reason: Anxiety Stop: 04/29/19 19:02 Last Admin: 03/31/19 22:45 Dose: 25 mg Documented by: Lisinopril (Zestril) 20 mg PO DAILY PILI Stop: 05/06/19 08:59 Last Admin: 04/07/19 07:25 Dose: 20 mg Documented by: Magnesium Hydroxide (Milk Of Magnesia) 30 ml PO DAILY PRN PRN Reason: Heartburn Stop: 04/29/19 19:02 Mirtazapine (Remeron) 30 mg PO HS PILI Stop: 05/05/19 21:59 Last Admin: 04/06/19 20:30 Dose: 30 mg Documented by: Olanzapine (Zyprexa) 10 mg PO QPM PILI Stop: 04/30/19 20:59 Last Admin: 04/06/19 20:31 Dose: 10 mg Documented by: Sertraline HCl (Zoloft) 100 mg PO QAM PILI Stop: 05/01/19 08:59 Last Admin: 04/07/19 07:26 Dose: 100 mg Documented by: Sodium Chloride ([place] Nasal) 1 - 2 sprays NA PRN PRN PRN Reason: Nasal Dryness/Congestion Stop: 04/29/19 19:02 Trihexyphenidyl HCl (Artane) 1 mg PO BID PILI Stop: 05/06/19 20:59 Last Admin: 04/07/19 07:25 Dose: 1 mg Documented by: Mental Health & Subst Abuse Tx Psychiatrist Name of Psychiatrist: [facility] Carey Astudillo Psychiatrist's Date of Appointment with Psychiatrist: 04/20/19 Time of Appointment with Psychiatrist: 2:00 p.m. Psychiatric Appointment Comment: [address] [place] [address] Therapist Name of Therapist: [facility] Carey Petersen Therapist's Date of Therapist Appointment: 04/19/19 Time of Therapist Appointment: 1:30 p.m. Therapy Appointment Comment: [address] [place] [id number] Post Discharge Appointments Primary Care Physician Name Of Family Doctor: [facility] - Dr. Ayala [facility] Date of Appointment with PCP: 04/25/19 Time of Appointment with PCP: 10:30 a.m. Provider Appointment Comment: [address], [address], [place] [address] Contact Information Discharge Discharge Address: [address] [place] [id number] CPT Code CPT Code 44679
[2019-04-07] MEDS: clonazePAM 0.5 MG TAB PO PRN (13:46)
[2019-04-07] MEDS: MIRTAZAPINE TAB 15 MG TAB PO SCH (20:39)
[2019-04-07] MEDS: OLANZapine 5 MG TABLET PO SCH (20:39)
[2019-04-08] MEDS: LISINOPRIL 10 MG TAB PO SCH (07:54)
[2019-04-08] MEDS: TRIHEXYPHENIDYL HCL 2 MG TAB PO SCH (07:54)
[2019-04-08] MEDS: clonazePAM 0.5 MG TAB PO SCH ×3 (07:54→20:45)
[2019-04-08] MEDS: SERTRALINE HCL 100 MG TABLET PO SCH (07:55)
[2019-04-08] MEDS ORDERED: clonazePAM 0.5 MG TAB PO STA (09:57)
[2019-04-08] MEDS: diphenhydrAMINE HCl 12.5 MG/5 ML UDC PO SCH ×2 (11:32→20:43)
--- NOTE | 2019-04-08 11:33 | Psychiatric Progress Note ---
Date of Service April 08, 2019 Impression / Recommendations Impression 73-year-old female with a history of bipolar 1 and generalized anxiety disorder who was admitted voluntarily with severe, debilitating anxiety, depression, and inability to function. She had electrolyte abnormalities on presentation due to poor p.o. intake, was not sleeping, performing ADLs or getting out of bed at home. She has lost weight, and is cognitively impaired, and a limited historian. She has had multiple medication adjustments to target her anxiety and depressive symptoms. Her care is complex due to a polar type I with history of freedom, trying to utilize medications to target anxiety while avoiding activation/freedom and akathisia. Inpatient treatment is medically necessary and remains the least restrictive option until patient is better able to demonstrate an ability to function in the outpatient setting. We have had some difficulty managing the patient's extraparametal side effects (akathisia). She has had difficulty tolerating higher doses of Artane, but continues to have extraparametal side effects, albeit improved, at lower, tolerated doses. Last week, she had responded favorably to diphenhydramine 12.5 mg by mouth and that she reported that she felt more relaxed, and her cogwheel rigidity essentially resolved. She also did not become excessively sedated and did not complain of any side effects, other than of the taste of the liquid form. Staff report a favorable response to clonazepam, which is currently being given to her in a standing dose in the morning. The patient, herself, tells me that she also feels an improvement with clonidine, but although the relief is not complete. Today, we are making several changes. Artane will be discontinued in favor of diphenhydramine 12.5 mg twice a day for both anxiety and akathisia. We will increase the patient's dose of clonazepam to a dose of 0.5 mg 3 times a day. We will also increase her dose of sertraline from a dose of 100 mg a day to a dose of 125 mg a day. We will continue to offer individual, group, and activity therapies to teach and improved individual coping skills. (1) Bipolar 1 disorder: 03/31 -current episode depressed with severe anxiety. -Clarify home med list, as there are some discrepancies (external medication history shows that she filled #30 olanzapine 10 mg tablets and hydroxyzine 25 mg tablets on 03/18/2019, but admission medication reconciliation indicates olanzapine 15 mg every afternoon and hydralazine 25 mg every afternoon). Nursing staff to call her and clarify this: Patient is not prescribed hydralazine, will remove medication. She did receive a dose last night, and blood pressure this morning was elevated 163/89, but on repeat 124/71. -Increase sertraline to 100 mg daily to target mood and anxiety, and watch for activation/mood stabilization. -It is unclear if her home dose of olanzapine is 10 or 15 mg; she received 15 mg last night, and I am concerned for EPS given her cogwheeling on exam and severe restlessness. Order benztropine 0.5 mg as needed, and reduce olanzapine to 10 milligrams at bedtime. Per she was only on 10mg olanzapine at home. May need to reduce dose further or switch to another antipsychotic if EPS does not improve. -Fasting lipid profile and glucose performed on 09/30/2018 for monitoring on an atypical antipsychotic, and were within normal limits. 04/01 -Contributing to the patient's severe anxiety may be akathisia associated with olanzapine and, possibly, sertraline. I have advised the patient accordingly, and she accepts my recommendation for a standing dose of Artane (trihexyphenidyl) -Patient otherwise indicates that she feels that she has been tolerating olanzapine well, and reports that she feels this medication has been helpful to her. -The patient's dose of sertraline has been increased to 100 mg daily 04/02 -Patient more unsteady today. Will hold any further doses of diphenhydramine for now. She does not have any cogwheeling; once she is able to relax the paratonia disappears -Patient now on moderate dose of SSRI. Reviewed she had been manic at last presentation. Considering Remeron trial which may help with restlessness and anxiety and allow for reduction of some of the anticholinergic medication she has been started on however patient appeared overwhelmed when attempting to discuss today and will defer for reconsideration tomorrow -patient refused physical therapy referral for imbalance today 04/04 - Continue current medication regimen, consider titration of mirtazapine with observation for activation 04/05 - Titrating mirtazapine to 30mg this evening - continue to monitor for possible activation and triggering of manic symptoms - Once efficacy is apparent, consider tapering sertraline to achieve antidepressant monotherapy - Continue remainder of medication regimen unchanged 04/06 - Patient reports mood and restlessness are slightly improved. - Worsening tachycardia with heart rate as high as 130, with worsening after Artane was started. As this medication can cause tachycardia, will decrease it to 1 mg twice daily. 04/07 -Tachycardia has resolved with lowered Artane dose. Restlessness is improv ed. 04/08 -While the patient's restlessness has improved, today, she continues to complain of restlessness and, on testing, demonstrates persistent cogwheeling. Currently, we will offer the patient a trial of diphenhydramine 12.5 mg twice a day. The target of diphenhydramine in this case is the patient's extraparametal side effects, but we are also hopeful that it will aid in managing the patient's anxiety. -The patient is complaining of persistent anxiety and intrusive, ego dystonic thoughts that she tells me she is embarrassed to discuss. I offered the patient reassurances in this regard. -The patient reports that she is not having suicidal thoughts. (2) Generalized anxiety disorder: 03/31 -patient extremely anxious, with negative, ruminative thoughts, and severe restlessness. -Increase sertraline as above. -At home dose of hydroxyzine 25 mg at bedtime, and offer 25 mg every 4 hours as needed anxiety. -Continue clonazepam 0.5 mg every morning, and add 0.5 mg dose twice daily as needed if hydroxyzine an effective, but monitor for unsteadiness and oversedation. 04/01/19 -As noted above, some of the patient's anxious distress may be secondary to eps side effects (akathisia). -On examination, the patient does have cogwheel rigidity. However, she tells me that she feels that she is somewhat less anxious and notes that the med ications for her anxiety "may be helping." 04/02 -Patient remains highly anxious. Considered alternative options for bedtime hydroxyzine to reduce anticholinergic burden. Elected to trial the Remeron at 15 mg p.o. nightly which may help off label for feelings of restlessness. Hopefully this will also help to reduce her anxiety and provide some appetite stimulation but will need to watch for mood cycling in combination with the sertraline. If she does well with this agent, could consider using it as antidepressant monotherapy (tapering her off the Zoloft) 04/04 - Continue current medication regimen - consider increase or mirtazapine and possible taper of sertraline as outlined above; wanting to ensure tolerance prior to switching to mirtazapine as monotherapy 04/05 - Titrating mirtazapine to 30mg this evening; will continue sertraline at 100mg until efficacy of mirtazapine can be determined - Continue remainder of medication regimen unchanged 04/08 -As above, we are increasing her dose of sertraline to a dose of 125 mg daily to treat anxiety and depression. We will continue olanzapine to serve as a mood stabilizer given the patient's diagnosis of bipolar disorder. -Also as noted above, we have added diphenhydramine 12.5 mg twice a day for extraparametal side effects, persistent) EPS, and we will discontinue Artane. Hopefully, diphenhydramine will help not only with extraparametal side effects but, also, with the patient's generalized anxiety. -The patient's standing dose of clonazepam has been increased from 0.5 mg in the morning to 0.5 mg 3 times a day. She will also have available to her as needed clonazepam. Material risks and anticipated benefits of clonazepam have been reviewed with the patient, and it has been explained that this is not expected to be a long-term intervention but, instead, is being used to help bring the patient's anxiety under better control so that she can more fruitful he participate in the treatment on the. (3) Hyponatremia: 03/31 -sodium 129 on initial presentation, improved to 130 after 1 liter NS in the ER. Encourage good p.o. intake, and recheck BMP tomorrow. 04/01 -current sodium level is within normal limits. 04/03 - Remeron low risk for hyponatremia 04/04 - BMP reviewed with patient today; hyponatremia now normalized at 137 - Reporting improved nutritional intake (4) Hypertension: 03/31 -continue lisinopril 10 mg daily. Monitor BP. 04/02 -BP again asymptomatically elevated this morning. We will increase lisinopril to 15 mg daily 04/03 -Tolerated increased dose of lisinopril adequately. Blood pressures remain elevated in a.m.'s. 04/05 - BP's remain elevated in the AMs. Event rechecks after medication admin istration have been mildly elevated. Will trial lisinopril 20mg tomorrow. - Continue to monitor 04/06 -Blood pressure has normalized, but remains tachycardic. Heart rate as high as 130 today. Will decrease Artane as above his heart rate is increased since it was started and it can cause tachycardia. (5) Hypokalemia: 04/01 -The patient's potassium level has remained 3.1 for 2 days now, within the context of poor oral intake. -Encourage oral intake. -Potassium chloride supplement 20 mEq daily x 6. 04/02 -Repeat BMP ordered for Thursday for sodium and potassium monitoring. 04/04 - Reviewed BMP with patient, hypokalemia now normalized - 3.9 - Continue to encourage adequate oral intake - Pt requesting trial of potassium supplement in tablet form Risk Factors Assessment Male: No : Yes Do You Have Access To A Gun?: Yes ( has guns that are locked) Health Problems: Yes Mental Health Diagnoses: Yes Substance Use Disorders: No Previous Attempt: No Family History of Suicide: No Previous Psychiatric Hospitalization: Yes Hopelessness: Yes Smoker: No Protective Factors Assessment : Yes Responsible for Young Children: No Employed: No Supportive Family: Yes Good Rapport with Provider: Yes Interval History Identifying Information VALENTINA CLARK is a 73-year-old F who currently lives in [place] with her , has a history of bipolar disorder type I and generalized anxiety disorder, and was admitted on 03/30/19 19:35 on a 201 voluntary commitment for severe anxiety and inability to function. Chief Complaint "I don't think that I'm much better" Review of Systems Sleep Information Total Hours of Sleep: 8.75 Sleep Comments: pt appeared to sleep 1.75 hrs during evening shift. pt on q-15 minute checks Meal Information Percent Meal Consumed - Breakfast: 100 Percent Meal Consumed - Lunch: 25 Percent Meal Consumed - Dinner: 25 Nutrition Comment: Bites Subjective Subjective Patient was seen & assessed and interval progress reviewed with treatment team. I met individually with the patient in order to assess her current mental status, evaluate her response to treatment, coordinate any necessary changes in her patient, and address issues and concerns that may arise. Per report of staff, the patient remains fretful, indecisive, ruminative, and very anxious. Today, the patient tells me that she is still feeling "jumpy and restless," but she does believe that "the medicine") she does not know which one) does seem to be helping her in this regard to some extent. On testing, cogwheel rigidity persists today. She was unable to tolerate a higher dose of Artane. She and I discussed the fact that a dose of diphenhydramine 12.5 mg by mouth last week had been helpful in managing her restlessness and anxiety, and we discussed resuming diphenhydramine 12.5 mg twice a day for extraparametal side effects and anxiety. Also, the patient tells me that she does feel less anxious after receiving a dose of Klonopin. She tends not to ask for as needed medications, and after discussing the matter with the treatment team it was agreed that it would be best to place the patient on standing dose clonazepam 0.5 mg 3 times a day. The patient and I discussed material risks, including but not limited to risk of accidents, falls, and confusion. The patient indicated understanding. She briefly discussed ego-dystonic intrusive thoughts that she has been having, but is embarrassed to discuss them specifically. I offered the patient reassurance in this regard and explained that these sorts of "obsessive" thoughts may be successfully treated with sertraline, a medication that she is currently taking. Physical Exam Psychiatric Orientation: oriented x 3 Apperance: appropriately dressed and + disheveled Eye Contact: + fair eye contact Motor Behavior: + tremor Soft, shaky and frequently nonspontaneous. Affect: + depressed affect and + anxious affect Mood: + depressed mood and + anxious mood Thought Process: goal directed thought process and + perseveration Thought Content: reality based without delusions Suicidal Thoughts: denies suicidal thoughts Homicidal Thoughts: denies homicidal thoughts Hallucinations: no auditory hallucinations Cognition: recent memory grossly intact, remote memory grossly intact, attention grossly intact (The patient is easily distracted by obsessive intrusive thoughts.) and language grossly intact Estimated Intelligence: + above average estimated intelligence Insight: + limited insight Judgement: + limited judgement Vital Signs (Past 24 Hours) Last Vital Signs Temp 36.6 C 04/08/19 06:41 Pulse 109 H 04/08/19 06:42 Resp 20 04/08/19 06:41 BP 188/97 H 04/08/19 06:42 Pulse Ox 95 03/30/19 20:09 Results & Data Current Inpatient Medications Current Inpatient Medications: Current Inpatient Medications Acetaminophen (Tylenol) 650 mg PO Q4H PRN PRN Reason: Headache or Minor Fever Stop: 04/29/19 19:02 Al Hydrox/Mg Hydrox/Simethicone (Maalox) 30 ml PO Q4H PRN PRN Reason: GI Upset Stop: 04/29/19 19:02 Bismuth Subsalicylate (Kaopectate) 15 ml PO PRN PRN PRN Reason: Loose Stool Stop: 04/29/19 19:02 Clonazepam (Klonopin) 0.5 mg PO BID PRN PRN Reason: Anxiety Stop: 04/30/19 09:43 Last Admin: 04/07/19 13:46 Dose: 0.5 mg Documented by: Clonazepam (Klonopin) 0.5 mg PO TID PILI Stop: 05/08/19 13:59 Diphenhydramine HCl (Benadryl Syrup) 12.5 mg PO BID PILI Stop: 05/08/19 09:59 Hydroxyzine HCl (Vistaril) 25 mg PO Q4H PRN PRN Reason: Anxiety Stop: 04/29/19 19:02 Last Admin: 03/31/19 22:45 Dose: 25 mg Documented by: Lisinopril (Zestril) 20 mg PO DAILY PILI Stop: 05/06/19 08:59 Last Admin: 04/08/19 07:54 Dose: 20 mg Documented by: Magnesium Hydroxide (Milk Of Magnesia) 30 ml PO DAILY PRN PRN Reason: Heartburn Stop: 04/29/19 19:02 Mirtazapine (Remeron) 30 mg PO HS PILI Stop: 05/05/19 21:59 Last Admin: 04/07/19 20:39 Dose: 30 mg Documented by: Olanzapine (Zyprexa) 10 mg PO QPM PILI Stop: 04/30/19 20:59 Last Admin: 04/07/19 20:39 Dose: 10 mg Documented by: Sertraline HCl (Zoloft) 25 mg PO QAM PILI Stop: 05/09/19 08:59 Sertraline HCl (Zoloft) 100 mg PO QAM PILI Stop: 05/09/19 08:59 Sodium Chloride ([place] Nasal) 1 - 2 sprays NA PRN PRN PRN Reason: Nasal Dryness/Congestion Stop: 04/29/19 19:02 Mental Health & Subst Abuse Tx Psychiatrist Name of Psychiatrist: [facility] Carey Astudillo Psychiatrist's Date of Appointment with Psychiatrist: 04/20/19 Time of Appointment with Psychiatrist: 2:00 p.m. Psychiatric Appointment Comment: [address] [facility] [address] Therapist Name of Therapist: [facility] Carey Petersen Therapist's Date of Therapist Appointment: 04/19/19 Time of Therapist Appointment: 1:30 p.m. Therapy Appointment Comment: [address] [facility] [address] Post Discharge Appointments Primary Care Physician Name Of Family Doctor: [facility] - Dr. Ayala [facility] Date of Appointment with PCP: 04/25/19 Time of Appointment with PCP: 10:30 a.m. Provider Appointment Comment: [address], [address], [place] [address] Contact Information Discharge Discharge Address: [address] [place] [id number] CPT Code CPT Code 42104
[2019-04-08] MEDS: MIRTAZAPINE TAB 15 MG TAB PO SCH (20:43)
[2019-04-08] MEDS: OLANZapine 5 MG TABLET PO SCH (20:43)
--- NOTE | 2019-04-09 08:03 | Psychiatric Progress Note ---
Date of Service April 09, 2019 Impression / Recommendations Impression 73-year-old female with a history of bipolar 1 and generalized anxiety disorder who was admitted voluntarily with severe, debilitating anxiety, depression, and inability to function. She had electrolyte abnormalities on presentation due to poor p.o. intake, was not sleeping, performing ADLs or getting out of bed at home. She has lost weight, and is cognitively impaired, and a limited historian. She has had multiple medication adjustments to target her anxiety and depressive symptoms. Her care is complex due to bipolar type I with history of freedom, trying to utilize medications to target anxiety while avoiding activation/freedom and akathisia. Ongoing medication adjustments are being pursued to target these concerns, as well as episodes of EPS. Inpatient treatment is medically necessary and remains the least restrictive option until patient is better able to demonstrate an ability to function in the outpatient setting. (1) Bipolar 1 disorder: 03/31 -current episode depressed with severe anxiety. -Clarify home med list, as there are some discrepancies (external medication history shows that she filled #30 olanzapine 10 mg tablets and hydroxyzine 25 mg tablets on 03/18/2019, but admission medication reconciliation indicates olanzapine 15 mg every afternoon and hydralazine 25 mg every afternoon). Nursing staff to call her and clarify this: Patient is not prescribed hydralazine, will remove medication. She did receive a dose last night, and blood pressure this morning was elevated 163/89, but on repeat 124/71. -Increase sertraline to 100 mg daily to target mood and anxiety, and watch for activation/mood stabilization. -It is unclear if her home dose of olanzapine is 10 or 15 mg; she received 15 mg last night, and I am concerned for EPS given her cogwheeling on exam and severe restlessness. Order benztropine 0.5 mg as needed, and reduce olanzapine to 10 milligrams at bedtime. Per she was only on 10mg olanzapine at home. May need to reduce dose further or switch to another antipsychotic if EPS does not improve. -Fasting lipid profile and glucose performed on 09/30/2018 for monitoring on an atypical antipsychotic, and were within normal limits. 04/01 -Contributing to the patient's severe anxiety may be akathisia associated with olanzapine and, possibly, sertraline. I have advised the patient accordingly, and she accepts my recommendation for a standing dose of Artane (trihexyphenidyl) -Patient otherwise indicates that she feels that she has been tolerating olanzapine well, and reports that she feels this medication has been helpful to her. -The patient's dose of sertraline has been increased to 100 mg daily 04/02 -Patient more unsteady today. Will hold any further doses of diphenhydramine for now. She does not have any cogwheeling; once she is able to relax the paratonia disappears -Patient now on moderate dose of SSRI. Reviewed she had been manic at last presentation. Considering Remeron trial which may help with restlessness and anxiety and allow for reduction of some of the anticholinergic medication she has been started on however patient appeared overwhelmed when attempting to discuss today and will defer for reconsideration tomorrow -patient refused physical therapy referral for imbalance today 04/04 - Continue current medication regimen, consider titration of mirtazapine with observation for activation 04/05 - Titrating mirtazapine to 30mg this evening - continue to monitor for possible activation and triggering of manic symptoms - Once efficacy is apparent, consider tapering sertraline to achieve antidepressant monotherapy - Continue remainder of medication regimen unchanged 04/06 - Patient reports mood and restlessness are slightly improved. - Worsening tachycardia with heart rate as high as 130, with worsening after Artane was started. As this medication can cause tachycardia, will decrease it to 1 mg twice daily. 04/07 -Tachycardia has resolved with lowered Artane dose. Restlessness is improved. 04/08 -While the patient's restlessness has improved, today, she continues to complain of restlessness and, on testing, demonstrates persistent cogwheeling. Currently, we will offer the patient a trial of diphenhydramine 12.5 mg twice a day. The target of diphenhydramine in this case is the patient's EPS, but we are also hopeful that it will aid in managing the patient's anxiety. -The patient is complaining of persistent anxiety and intrusive, ego dystonic thoughts that she tells me she is embarrassed to discuss. I offered the patient reassurances in this regard. -The patient reports that she is not having suicidal thoughts. 04/09 - Continue current medication regimen, reportedly demonstrating improvement (2) Generalized anxiety disorder: 03/31 -patient extremely anxious, with negative, ruminative thoughts, and severe restlessness. -Increase sertraline as above. -At home dose of hydroxyzine 25 mg at bedtime, and offer 25 mg every 4 hours as needed anxiety. -Continue clonazepam 0.5 mg every morning, and add 0.5 mg dose twice daily as needed if hydroxyzine an effective, but monitor for unsteadiness and oversedation. 04/01/19 -As noted above, some of the patient's anxious distress may be secondary to eps side effects (akathisia). -On examination, the patient does have cogwheel rigidity. However, she tells me that she feels that she is somewhat less anxious and notes that the medications for her anxiety "may be helping." 04/02 -Patient remains highly anxious. Considered alternative options for bedtime hydroxyzine to reduce anticholinergic burden. Elected to trial the Remeron at 15 mg p.o. nightly which may help off label for feelings of restlessness. Hopefully this will also help to reduce her anxiety and provide some appetite stimulation but will need to watch for mood cycling in combination with the sertraline. If she does well with this agent, could consider using it as antidepressant monotherapy (tapering her off the Zoloft) 04/04 - Continue current medication regimen - consider increase or mirtazapine and possible taper of sertraline as outlined above; wanting to ensure tolerance prior to switching to mirtazapine as monotherapy 04/05 - Titrating mirtazapine to 30mg this evening; will continue sertraline at 100mg until efficacy of mirtazapine can be determined - Continue remainder of medication regimen unchanged 04/08 -As above, we are increasing her dose of sertraline to a dose of 125 mg daily to treat anxiety and depression. We will continue olanzapine to serve as a mood stabilizer given the patient's diagnosis of bipolar disorder. -Also as noted above, we have added diphenhydramine 12.5 mg twice a day for extraparametal side effects, persistent) EPS, and we will discontinue Artane. Hopefully, diphenhydramine will help not only with extraparametal side effects but, also, with the patient's generalized anxiety. -The patient's standing dose of clonazepam has been increased from 0.5 mg in the morning to 0.5 mg 3 times a day. She will also have available to her as needed clonazepam. Material risks and anticipated benefits of clonazepam have been reviewed with the patient, and it has been explained that this is not expected to be a long-term intervention but, instead, is being used to help bring the patient's anxiety under better control so that she can more fruitful he participate in the treatment on the. 04/09 - Continue current medication regimen; consider need for further titration of sertraline to 150mg daily - Patient appearing less restless/anxious, though she describes her symptoms to be unchanged (3) Hyponatremia: 03/31 -sodium 129 on initial presentation, improved to 130 after 1 liter NS in the ER. Encourage good p.o. intake, and recheck BMP tomorrow. 04/01 -current sodium level is within normal limits. 04/03 - Remeron low risk for hyponatremia 04/04 - BMP reviewed with patient today; hyponatremia now normalized at 137 - Reporting improved nutritional intake (4) Hypertension: 03/31 -continue lisinopril 10 mg daily. Monitor BP. 04/02 -BP again asymptomatically elevated this morning. We will increase lisinopril to 15 mg daily 04/03 -Tolerated increased dose of lisinopril adequately. Blood pressures remain elevated in a.m.'s. 04/05 - BP's remain elevated in the AMs. Event rechecks after medication administration have been mildly elevated. Will trial lisinopril 20mg tomorrow. - Continue to monitor 04/06 -Blood pressure has normalized, but remains tachycardic. Heart rate as high as 130 today. Will decrease Artane as above his heart rate is increased since it was started and it can cause tachycardia. 04/09 - Blood pressure remains elevated in the AM, improved in the afternoons - patient unwilling today to discuss titration of lisinopril - Review again tomorrow, consider HS dose of lisinopril if there is little improvement (5) Hypokalemia: 04/01 -The patient's potassium level has remained 3.1 for 2 days now, within the context of poor oral intake. -Encourage oral intake. -Potassium chloride supplement 20 mEq daily x 6. 04/02 -Repeat BMP ordered for Thursday morning for sodium and potassium monitoring. 04/04 - Reviewed BMP with patient, hypokalemia now normalized - 3.9 - Continue to encourage adequate oral intake - Pt requesting trial of potassium supplement in tablet form Risk Factors Assessment Male: No : Yes Do You Have Access To A Gun?: Yes ( has guns that are locked) Health Problems: Yes Mental Health Diagnoses: Yes Substance Use Disorders: No Previous Attempt: No Family History of Suicide: No Previous Psychiatric Hospitalization: Yes Hopelessness: Yes Smoker: No Protective Factors Assessment : Yes Responsible for Young Children: No Employed: No Supportive Family: Yes Good Rapport with Provider: Yes Interval History Identifying Information VALENTINA CLARK is a 73-year-old F who currently lives in [place] with her , has a history of bipolar disorder type I and generalized anxiety disorder, and was admitted on 03/30/19 19:35 on a 201 voluntary commitment for severe anxiety and inability to function. Chief Complaint "Oh, so-so." Review of Systems Notes Constitutional: reports "fair" sleep, ongoing restlessness Cardiovascular: denied Respiratory: denied Gastrointestinal: denied Neurological: denied Psychiatric: denies symptoms other than stated above Total of at least 10 systems reviewed, pertinent positives as above and in HPI. Sleep Information Total Hours of Sleep: 8 Sleep Comments: pt appeared to sleep 1.75 hrs during evening shift. pt on q-15 minute checks Meal Information Percent Meal Consumed - Breakfast: 100 Percent Meal Consumed - Lunch: 50 Percent Meal Consumed - Dinner: 50 Nutrition Comment: Bites Subjective Subjective Patient was seen & assessed and interval progress reviewed with nursing and social work. Staff reports the patient displayed some improvement in her anxiety last evening. It appears that she had responded favorably to medication adjustments made yesterday. She continues to rate her mood a 1/10 and "anxio us." Patient was seen today to assess progress since admission. She continues to state that she is "so-so", and is not convinced that her condition has been improving despite noticeable improvements in her appearance. Patient states she feels "not a lot better." Patient has been attending groups regularly, but states she has difficulty in them due to feeling as though "I cannot concentrate." Patient was asked if she has been able to participate in groups and offer her own insight to which she states, "I could if I felt better." Patient describes her sleep as "fair, some days are better than others" and reports difficulty falling back asleep when she is awoken in the night. Patient states that she feels comfortable here on the unit, but continues to struggle with racing thoughts. She is unwilling today to discuss what is on her mind, thoughts which are reported to be likely "dark" in nature per her 's reports. This provider attempted to offer patient encouragement, and reassure her that staff is here to help her process her thoughts no matter what they might be. We reviewed patient's ongoing elevated blood pressures, and she is unwilling to consider medication adjustments at this time but is agreeable to discussing again tomorrow. Patient denies any needs or concerns at this time. Physical Exam Psychiatric Orientation: alert, oriented x 3 and cooperative (Superficially) Apperance: appropriately dressed, appropriately groomed (With the exception of greasy hair which patient is refusing to wash) and appeared stated age Eye Contact: + poor eye contact (Predominantly staring at floor) Motor Behavior: steady gait and station (Cautious but stable ambulation without assistance) and no abnormal motor movements (No noticeable tremor today) Speech: normal rate/rhythm/volume of speech Affect: + anxious affect (Remains highly anxious, though improved from the last few days) Mood: + anxious mood ("So-so" and "not a lot better") Thought Process: + perseveration (On anxiety, anxious thoughts she will not discuss) and + concrete thought process Thought Content: + preoccupation (With anxious thoughts, patient refuses to disclose to staff), reality based without delusions and + hopelessness Suicidal Thoughts: denies suicidal thoughts Homicidal Thoughts: denies homicidal thoughts Hallucinations: no auditory hallucinations and no visual hallucinations Cognition: attention grossly intact and language grossly intact Estimated Intelligence: consistent with education level Insight: + limited insight Judgement: + limited judgement Vital Signs (Past 24 Hours) Last Vital Signs Temp 36.9 C 04/09/19 06:52 Pulse 90 04/09/19 06:52 Resp 18 04/09/19 06:52 BP 180/81 H 04/09/19 06:53 Pulse Ox 98 04/09/19 06:52 Results & Data Current Inpatient Medications Current Inpatient Medications: Current Inpatient Medications Acetaminophen (Tylenol) 650 mg PO Q4H PRN PRN Reason: Headache or Minor Fever Stop: 04/29/19 19:02 Al Hydrox/Mg Hydrox/Simethicone (Maalox) 30 ml PO Q4H PRN PRN Reason: GI Upset Stop: 04/29/19 19:02 Bismuth Subsalicylate (Kaopectate) 15 ml PO PRN PRN PRN Reason: Loose Stool Stop: 04/29/19 19:02 Clonazepam (Klonopin) 0.5 mg PO BID PRN PRN Reason: Anxiety Stop: 04/30/19 09:43 Last Admin: 04/07/19 13:46 Dose: 0.5 mg Documented by: Clonazepam (Klonopin) 0.5 mg PO TID PILI Stop: 05/08/19 13:59 Last Admin: 04/08/19 20:45 Dose: 0.5 mg Documented by: Diphenhydramine HCl (Benadryl Syrup) 12.5 mg PO BID PILI Stop: 05/08/19 09:59 Last Admin: 04/08/19 20:43 Dose: 12.5 mg Documented by: Hydroxyzine HCl (Vistaril) 25 mg PO Q4H PRN PRN Reason: Anxiety Stop: 04/29/19 19:02 Last Admin: 03/31/19 22:45 Dose: 25 mg Documented by: Lisinopril (Zestril) 20 mg PO DAILY PILI Stop: 05/06/19 08:59 Last Admin: 04/08/19 07:54 Dose: 20 mg Documented by: Magnesium Hydroxide (Milk Of Magnesia) 30 ml PO DAILY PRN PRN Reason: Heartburn Stop: 04/29/19 19:02 Mirtazapine (Remeron) 30 mg PO HS PILI Stop: 05/05/19 21:59 Last Admin: 04/08/19 20:43 Dose: 30 mg Documented by: Olanzapine (Zyprexa) 10 mg PO QPM PILI Stop: 04/30/19 20:59 Last Admin: 04/08/19 20:43 Dose: 10 mg Documented by: Sertraline HCl (Zoloft) 25 mg PO QAM PILI Stop: 05/09/19 08:59 Sertraline HCl (Zoloft) 100 mg PO QAM PILI Stop: 05/09/19 08:59 Sodium Chloride ([place]minn Nasal) 1 - 2 sprays NA PRN PRN PRN Reason: Nasal Dryness/Congestion Stop: 04/29/19 19:02 Mental Health & Subst Abuse Tx Psychiatrist Name of Psychiatrist: [facility] Carey Astudillo Psychiatrist's Date of Appointment with Psychiatrist: 04/20/19 Time of Appointment with Psychiatrist: 2:00 p.m. Psychiatric Appointment Comment: [address] [place] [address] Therapist Name of Therapist: BENJAMIN Carey Petersen Therapist's Date of Therapist Appointment: 04/19/19 Time of Therapist Appointment: 1:30 p.m. Therapy Appointment Comment: [address] [facility] [place] [address] Post Discharge Appointments Primary Care Physician Name Of Family Doctor: [facility] - Dr. Ayala [facility] Date of Appointment with PCP: 04/25/19 Time of Appointment with PCP: 10:30 a.m. Provider Appointment Comment: [address], [address], [place] [address] Contact Information Discharge Discharge Address: [address] [place] [id number] CPT Code CPT Code 50148
[2019-04-09] MEDS: LISINOPRIL 10 MG TAB PO SCH (08:11)
[2019-04-09] MEDS: diphenhydrAMINE HCl 12.5 MG/5 ML UDC PO SCH ×2 (08:11→20:37)
[2019-04-09] MEDS: SERTRALINE HCL 50 MG TABLET PO SCH (08:12)
[2019-04-09] MEDS: SERTRALINE HCL 100 MG TABLET PO SCH (08:12)
[2019-04-09] MEDS: clonazePAM 0.5 MG TAB PO SCH ×3 (08:12→20:38)
[2019-04-09] MEDS: OLANZapine 5 MG TABLET PO SCH (20:37)
[2019-04-09] MEDS: MIRTAZAPINE TAB 15 MG TAB PO SCH (20:37)
[2019-04-10] MEDS: diphenhydrAMINE HCl 12.5 MG/5 ML UDC PO SCH ×2 (07:59→20:49)
[2019-04-10] MEDS: SERTRALINE HCL 50 MG TABLET PO SCH (07:59)
[2019-04-10] MEDS: clonazePAM 0.5 MG TAB PO SCH ×3 (07:59→20:50)
[2019-04-10] MEDS: SERTRALINE HCL 100 MG TABLET PO SCH (08:00)
[2019-04-10] MEDS: LISINOPRIL 10 MG TAB PO SCH (08:00)
--- NOTE | 2019-04-10 08:03 | Psychiatric Progress Note ---
Date of Service April 10, 2019 Impression / Recommendations Impression 73-year-old female with a history of bipolar 1 and generalized anxiety disorder who was admitted voluntarily with severe, debilitating anxiety, depression, and inability to function. She had electrolyte abnormalities on presentation due to poor p.o. intake, was not sleeping, performing ADLs or getting out of bed at home. She has lost weight, and is cognitively impaired, and a limited historian. She has had multiple medication adjustments to target her anxiety and depressive symptoms. Her care is complex due to bipolar type I with history of freedom, trying to utilize medications to target anxiety while avoiding activation/freedom and akathisia. Ongoing medication adjustments are being pursued to target these concerns, as well as episodes of EPS. Inpatient treatment is medically necessary and remains the least restrictive option until patient is better able to demonstrate an ability to function in the outpatient setting. (1) Bipolar 1 disorder: 03/31 -current episode depressed with severe anxiety. -Clarify home med list, as there are some discrepancies (external medication history shows that she filled #30 olanzapine 10 mg tablets and hydroxyzine 25 mg tablets on 03/18/2019, but admission medication reconciliation indicates olanzapine 15 mg every afternoon and hydralazine 25 mg every afternoon). Nursing staff to call her and clarify this: Patient is not prescribed hydralazine, will remove medication. She did receive a dose last night, and blood pressure this morning was elevated 163/89, but on repeat 124/71. -Increase sertraline to 100 mg daily to target mood and anxiety, and watch for activation/mood stabilization. -It is unclear if her home dose of olanzapine is 10 or 15 mg; she received 15 mg last night, and I am concerned for EPS given her cogwheeling on exam and severe restlessness. Order benztropine 0.5 mg as needed, and reduce olanzapine to 10 milligrams at bedtime. Per she was only on 10mg olanzapine at home. May need to reduce dose further or switch to another antipsychotic if EPS does not improve. -Fasting lipid profile and glucose performed on 09/30/2018 for monitoring on an atypical antipsychotic, and were within normal limits. 04/01 -Contributing to the patient's severe anxiety may be akathisia associated with olanzapine and, possibly, sertraline. I have advised the patient accordingly, and she accepts my recommendation for a standing dose of Artane (trihexyphenidyl) -Patient otherwise indicates that she feels that she has been tolerating olanzapine well, and reports that she feels this medication has been helpful to her. -The patient's dose of sertraline has been increased to 100 mg daily 04/02 -Patient more unsteady today. Will hold any further doses of diphenhydramine for now. She does not have any cogwheeling; once she is able to relax the paratonia disappears -Patient now on moderate dose of SSRI. Reviewed she had been manic at last presentation. Considering Remeron trial which may help with restlessness and anxiety and allow for reduction of some of the anticholinergic medication she has been started on however patient appeared overwhelmed when attempting to discuss today and will defer for reconsideration tomorrow -patient refused physical therapy referral for imbalance today 04/04 - Continue current medication regimen, consider titration of mirtazapine with observation for activation 04/05 - Titrating mirtazapine to 30mg this evening - continue to monitor for possible activation and triggering of manic symptoms - Once efficacy is apparent, consider tapering sertraline to achieve antidepressant monotherapy - Continue remainder of medication regimen unchanged 04/06 - Patient reports mood and restlessness are slightly improved. - Worsening tachycardia with heart rate as high as 130, with worsening after Artane was started. As this medication can cause tachycardia, will decrease it to 1 mg twice daily. 04/07 -Tachycardia has resolved with lowered Artane dose. Restlessness is improved. 04/08 -While the patient's restlessness has improved, today, she continues to complain of restlessness and, on testing, demonstrates persistent cogwheeling. Currently, we will offer the patient a trial of diphenhydramine 12.5 mg twice a day. The target of diphenhydramine in this case is the patient's EPS, but we are also hopeful that it will aid in managing the patient's anxiety. -The patient is complaining of persistent anxiety and intrusive, ego dystonic thoughts that she tells me she is embarrassed to discuss. I offered the patient reassurances in this regard. -The patient reports that she is not having suicidal thoughts. 04/09 - 04/10 - Continue current medication regimen, reportedly demonstrating improvement (2) Generalized anxiety disorder: 8/15 -patient extremely anxious, with negative, ruminative thoughts, and severe restlessness. -Increase sertraline as above. -At home dose of hydroxyzine 25 mg at bedtime, and offer 25 mg every 4 hours as needed anxiety. -Continue clonazepam 0.5 mg every morning, and add 0.5 mg dose twice daily as needed if hydroxyzine an effective, but monitor for unsteadiness and oversedation. 04/01/19 -As noted above, some of the patient's anxious distress may be secondary to eps side effects (akathisia). -On examination, the patient does have cogwheel rigidity. However, she tells me that she feels that she is somewhat less anxious and notes that the medications for her anxiety "may be helping." 04/02 -Patient remains highly anxious. Considered alternative options for bedtime hydroxyzine to reduce anticholinergic burden. Elected to trial the Remeron at 15 mg p.o. nightly which may help off label for feelings of restlessness. Hopefully this will also help to reduce her anxiety and provide some appetite stimulation but will need to watch for mood cycling in combination with the sertraline. If she does well with this agent, could consider using it as antidepressant monotherapy (tapering her off the Zoloft) 04/04 - Continue current medication regimen - consider increase or mirtazapine and possible taper of sertraline as outlined above; wanting to ensure tolerance prior to switching to mirtazapine as monotherapy 04/05 - Titrating mirtazapine to 30mg this evening; will continue sertraline at 100mg until efficacy of mirtazapine can be determined - Continue remainder of medication regimen unchanged 04/08 -As above, we are increasing her dose of sertraline to a dose of 125 mg daily to treat anxiety and depression. We will continue olanzapine to serve as a mood stabilizer given the patient's diagnosis of bipolar disorder. -Also as noted above, we have added diphenhydramine 12.5 mg twice a day for extraparametal side effects, persistent) EPS, and we will discontinue Artane. Hopefully, diphenhydramine will help not only with extraparametal side effects but, also, with the patient's generalized anxiety. -The patient's standing dose of clonazepam has been increased from 0.5 mg in the morning to 0.5 mg 3 times a day. She will also have available to her as needed clonazepam. Material risks and anticipated benefits of clonazepam have been reviewed with the patient, and it has been explained that this is not expected to be a long-term intervention but, instead, is being used to help bring the patient's anxiety under better control so that she can more fruitful he participate in the treatment on the. 04/09 - Continue current medication regimen; consider need for further titration of sertraline to 150mg daily - Patient appearing less restless/anxious, though she describes her symptoms to be unchanged 04/10 - Continue current medication regimen; consider titration of sertraline as above - pt limited in willingness to discuss multiple changes today - Patient's appearance is improving, though she reports limited changes in her condition (3) Hyponatremia: 03/31 -sodium 129 on initial presentation, improved to 130 after 1 liter NS in the ER. Encourage good p.o. intake, and recheck BMP tomorrow. 04/01 -current sodium level is within normal limits. 04/03 - Remeron low risk for hyponatremia 04/04 - BMP reviewed with patient today; hyponatremia now normalized at 137 - Reporting improved nutritional intake (4) Hypertension: 03/31 -continue lisinopril 10 mg daily. Monitor BP. 04/02 -BP again asymptomatically elevated this morning. We will increase lisinopril to 15 mg daily 04/03 -Tolerated increased dose of lisinopril adequately. Blood pressures remain elevated in a.m.'s. 04/05 - BP's remain elevated in the AMs. Event rechecks after medication administration have been mildly elevated. Will trial lisinopril 20mg tomorrow. - Continue to monitor 04/06 -Blood pressure has normalized, but remains tachycardic. Heart rate as high as 130 today. Will decrease Artane as above his heart rate is increased since it was started and it can cause tachycardia. 04/09 - Blood pressure remains elevated in the AM, improved in the afternoons - patient unwilling today to discuss titration of lisinopril - Review again tomorrow, consider HS dose of lisinopril if there is little improvement 04/10 - Ordered 10mg dose of lisinopril for this evening - with then begin 15mg BID dosing - If no improvement, consider discussing with hospitalist for further recommendations as she has not demonstrated strong response to changes thus far (5) Hypokalemia: 04/01 -The patient's potassium level has remained 3.1 for 2 days now, within the context of poor oral intake. -Encourage oral intake. -Potassium chloride supplement 20 mEq daily x 6. 04/02 -Repeat BMP ordered for Thursday morning for sodium and potassium monitoring. 04/04 - Reviewed BMP with patient, hypokalemia now normalized - 3.9 - Continue to encourage adequate oral intake - Pt requesting trial of potassium supplement in tablet form Risk Factors Assessment Male: No : Yes Do You Have Access To A Gun?: Yes ( has guns that are locked) Health Problems: Yes Mental Health Diagnoses: Yes Substance Use Disorders: No Previous Attempt: No Family History of Suicide: No Previous Psychiatric Hospitalization: Yes Hopelessness: Yes Smoker: No Protective Factors Assessment : Yes Responsible for Young Children: No Employed: No Supportive Family: Yes Good Rapport with Provider: Yes Interval History Identifying Information VALENTINA CLARK is a 73-year-old F who currently lives in [place] with her , has a history of bipolar disorder type I and generalized anxiety disorder, and was admitted on 03/30/19 19:35 on a 201 voluntary commitment for severe anxiety and inability to function. Chief Complaint "Yes we can talk, but I do not think I have anything to say." Review of Systems Notes Constitutional: reports restlessness, but admits improved today Cardiovascular: denied Respiratory: denied Gastrointestinal: denied Neurological: denied Psychiatric: denies symptoms other than stated above Total of at least 10 systems reviewed, pertinent positives as above and in HPI. Sleep Information Total Hours of Sleep: 8.25 Sleep Comments: pt appeared to sleep 1.75 hrs during evening shift. pt on q-15 minute checks Meal Information Percent Meal Consumed - Breakfast: 100 Percent Meal Consumed - Lunch: 30 Percent Meal Consumed - Dinner: 25 Nutrition Comment: Bites Subjective Subjective Patient was seen & assessed and interval progress reviewed with nursing and social work. Staff reports the patient has demonstrated reduced anxiety; however, continues to report that her condition is unchanged. It is reported her affect brightened during a visit from her . Patient did share with staff aspects of the "dark thoughts" that have been reported, but not previously discussed. Patient admitted that she is having thoughts to boil her , peel his skin off, eat it, cut his head off, and serve it on a platter. She shares that these thoughts began around 12/2018 as she felt she was deteriorating. She reports the thoughts make her rather anxious, which further feeds the anxiety and difficult functioning. Patient was agreeable to having a conversation with this provider; however, stated "I do not think I have anything to say." Patient does admit that she is feeling "a tiny bit" better today. She has been processing her dark and disturbing thoughts with staff however, is not overly willing to discuss them with this provider. She remains somewhat guarded when the topic of racing thoughts as mentioned. Patient did feel that these thoughts improved when she received 2.5 mg of olanzapine. Patient was encouraged to request this medication if the thoughts should again become overwhelming. She responds by saying "I do not think I will remember what it is called, so I do not think I can ask for it." Patient was reassured that she simply needs to inform staff of how she is feeling, and they will direct her to appropriate medications. This provider reviewed with the patient that her blood pressure continues to be high. Patient is agreeable today to making medication adjustments to attempt to reduce her blood pressure. Patient denies any needs or concerns at this time. Physical Exam Psychiatric Orientation: alert, oriented x 3, cooperative and + guarded (When topic of her racing thoughts as mentioned) Apperance: appropriately dressed, appropriately groomed (With the exception of her hair, which she still refuses to wash) and appeared stated age Eye Contact: + fair eye contact Motor Behavior: steady gait and station and no abnormal motor movements Speech: normal rate/rhythm/volume of speech Affect: + anxious affect and mood congruent with affect Mood: + anxious mood Thought Process: + perseveration and + concrete thought process Thought Content: + preoccupation (With her anxiety and racing thoughts) and + hopelessness Suicidal Thoughts: denies suicidal thoughts and denies suicidal intent Homicidal Thoughts: denies homicidal thoughts Hallucinations: no auditory hallucinations and no visual hallucinations Cognition: attention grossly intact and language grossly intact Estimated Intelligence: consistent with education level Insight: + impaired insight Judgement: + impaired judgement Vital Signs (Past 24 Hours) Last Vital Signs Temp 36.6 C 04/10/19 06:54 Pulse 110 H 04/10/19 06:56 Resp 18 04/10/19 06:54 BP 173/93 H 08/25/19 06:56 Pulse Ox 97 04/10/19 06:54 Results & Data Current Inpatient Medications Current Inpatient Medications: Current Inpatient Medications Acetaminophen (Tylenol) 650 mg PO Q4H PRN PRN Reason: Headache or Minor Fever Stop: 04/29/19 19:02 Al Hydrox/Mg Hydrox/Simethicone (Maalox) 30 ml PO Q4H PRN PRN Reason: GI Upset Stop: 04/29/19 19:02 Bismuth Subsalicylate (Kaopectate) 15 ml PO PRN PRN PRN Reason: Loose Stool Stop: 04/29/19 19:02 Clonazepam (Klonopin) 0.5 mg PO BID PRN PRN Reason: Anxiety Stop: 04/30/19 09:43 Last Admin: 04/07/19 13:46 Dose: 0.5 mg Documented by: Clonazepam (Klonopin) 0.5 mg PO TID PILI Stop: 05/08/19 13:59 Last Admin: 04/10/19 07:59 Dose: 0.5 mg Documented by: Diphenhydramine HCl (Benadryl Syrup) 12.5 mg PO BID PILI Stop: 05/08/19 09:59 Last Admin: 04/10/19 07:59 Dose: 12.5 mg Documented by: Hydroxyzine HCl (Vistaril) 25 mg PO Q4H PRN PRN Reason: Anxiety Stop: 04/29/19 19:02 Last Admin: 03/31/19 22:45 Dose: 25 mg Documented by: Lisinopril (Zestril) 20 mg PO DAILY PILI Stop: 05/06/19 08:59 Last Admin: 04/10/19 08:00 Dose: 20 mg Documented by: Magnesium Hydroxide (Milk Of Magnesia) 30 ml PO DAILY PRN PRN Reason: Heartburn Stop: 04/29/19 19:02 Mirtazapine (Remeron) 30 mg PO HS PILI Stop: 05/05/19 21:59 Last Admin: 04/09/19 20:37 Dose: 30 mg Documented by: Olanzapine (Zyprexa) 10 mg PO QPM PILI Stop: 04/30/19 20:59 Last Admin: 04/09/19 20:37 Dose: 10 mg Documented by: Sertraline HCl (Zoloft) 25 mg PO QAM PILI Stop: 05/09/19 08:59 Last Admin: 04/10/19 07:59 Dose: 25 mg Documented by: Sertraline HCl (Zoloft) 100 mg PO QAM PILI Stop: 05/09/19 08:59 Last Admin: 04/10/19 08:00 Dose: 100 mg Documented by: Sodium Chloride ([place] Nasal) 1 - 2 sprays NA PRN PRN PRN Reason: Nasal Dryness/Congestion Stop: 04/29/19 19:02 Mental Health & Subst Abuse Tx Psychiatrist Name of Psychiatrist: [facility] Carey Astudillo Psychiatrist's Date of Appointment with Psychiatrist: 04/20/19 Time of Appointment with Psychiatrist: 2:00 p.m. Psychiatric Appointment Comment: [address] [facility] [place] [address] Therapist Name of Therapist: BENJAMIN Carey Petersen Therapist's Date of Therapist Appointment: 04/19/19 Time of Therapist Appointment: 1:30 p.m. Therapy Appointment Comment: [address] [facility] [place] [address] Post Discharge Appointments Primary Care Physician Name Of Family Doctor: [facility] - Dr. Ay[facility] Date of Appointment with PCP: 04/25/19 Time of Appointment with PCP: 10:30 a.m. Provider Appointment Comment: [address], [address], [place] [address] Contact Information Discharge Discharge Address: [address] [place], [place] [id number] CPT Code CPT Code 59197
[2019-04-10] MEDS ORDERED: OLANZAPINE 2.5 MG TAB PO PRN (08:05)
[2019-04-10] MEDS: OLANZapine 5 MG TABLET PO SCH (20:47)
[2019-04-10] MEDS: MIRTAZAPINE TAB 15 MG TAB PO SCH (20:48)
[2019-04-10] MEDS ORDERED: LISINOPRIL 10 MG TAB PO ONE (21:00)
[2019-04-11] MEDS: LISINOPRIL 10 MG TAB PO SCH ×2 (08:03→21:18)
[2019-04-11] MEDS: diphenhydrAMINE HCl 12.5 MG/5 ML UDC PO SCH ×2 (08:03→21:17)
[2019-04-11] MEDS: SERTRALINE HCL 100 MG TABLET PO SCH (08:04)
[2019-04-11] MEDS: SERTRALINE HCL 50 MG TABLET PO SCH (08:04)
[2019-04-11] MEDS: clonazePAM 0.5 MG TAB PO SCH ×3 (08:05→21:18)
--- NOTE | 2019-04-11 09:16 | Psychiatric Progress Note ---
Date of Service April 11, 2019 Impression / Recommendations Impression 73-year-old female with a history of bipolar 1 and generalized anxiety disorder who was admitted voluntarily with severe, debilitating anxiety, depression, and inability to function. She had electrolyte abnormalities on presentation due to poor p.o. intake, was not sleeping, performing ADLs or getting out of bed at home. She has lost weight, and is cognitively impaired, and a limited historian. She has had multiple medication adjustments to target her anxiety and depressive symptoms. Her care is complex due to bipolar type I with history of freedom, trying to utilize medications to target anxiety while avoiding activation/freedom and akathisia. Ongoing medication adjustments are being pursued to target these concerns, as well as episodes of EPS. Inpatient treatment is medically necessary and remains the least restrictive option until patient is better able to demonstrate an ability to function in the outpatient setting. (1) Bipolar 1 disorder: 03/31 -current episode depressed with severe anxiety. -Clarify home med list, as there are some discrepancies (external medication history shows that she filled #30 olanzapine 10 mg tablets and hydroxyzine 25 mg tablets on 03/18/2019, but admission medication reconciliation indicates olanzapine 15 mg every afternoon and hydralazine 25 mg every afternoon). Nursing staff to call her and clarify this: Patient is not prescribed hydralazine, will remove medication. She did receive a dose last night, and blood pressure this morning was elevated 163/89, but on repeat 124/71. -Increase sertraline to 100 mg daily to target mood and anxiety, and watch for activation/mood stabilization. -It is unclear if her home dose of olanzapine is 10 or 15 mg; she received 15 mg last night, and I am concerned for EPS given her cogwheeling on exam and severe restlessness. Order benztropine 0.5 mg as needed, and reduce olanzapine to 10 milligrams at bedtime. Per she was only on 10mg olanzapine at home. May need to reduce dose further or switch to another antipsychotic if EPS does not improve. -Fasting lipid profile and glucose performed on 09/30/2018 for monitoring on an atypical antipsychotic, and were within normal limits. 04/01 -Contributing to the patient's severe anxiety may be akathisia associated with olanzapine and, possibly, sertraline. I have advised the patient accordingly, and she accepts my recommendation for a standing dose of Artane (trihexyphenidyl) -Patient otherwise indicates that she feels that she has been tolerating olanzapine well, and reports that she feels this medication has been helpful to her. -The patient's dose of sertraline has been increased to 100 mg daily 04/02 -Patient more unsteady today. Will hold any further doses of diphenhydramine for now. She does not have any cogwheeling; once she is able to relax the paratonia disappears -Patient now on moderate dose of SSRI. Reviewed she had been manic at last presentation. Considering Remeron trial which may help with restlessness and anxiety and allow for reduction of some of the anticholinergic medication she has been started on however patient appeared overwhelmed when attempting to discuss today and will defer for reconsideration tomorrow -patient refused physical therapy referral for imbalance today 04/04 - Continue current medication regimen, consider titration of mirtazapine with observation for activation 04/05 - Titrating mirtazapine to 30mg this evening - continue to monitor for possible activation and triggering of manic symptoms - Once efficacy is apparent, consider tapering sertraline to achieve antidepressant monotherapy - Continue remainder of medication regimen unchanged 04/06 - Patient reports mood and restlessness are slightly improved. - Worsening tachycardia with heart rate as high as 130, with worsening after Artane was started. As this medication can cause tachycardia, will decrease it to 1 mg twice daily. 04/07 -Tachycardia has resolved with lowered Artane dose. Restlessness is improved. 04/08 -While the patient's restlessness has improved, today, she continues to complain of restlessness and, on testing, demonstrates persistent cogwheeling. Currently, we will offer the patient a trial of diphenhydramine 12.5 mg twice a day. The target of diphenhydramine in this case is the patient's EPS, but we are also hopeful that it will aid in managing the patient's anxiety. -The patient is complaining of persistent anxiety and intrusive, ego dystonic thoughts that she tells me she is embarrassed to discuss. I offered the patient reassurances in this regard. -The patient reports that she is not having suicidal thoughts. 04/09 - 04/10 - Continue current medication regimen, reportedly demonstrating improvement 04/11 - Titrating sertraline to 150mg daily, continue remainder of current medication regimen (2) Generalized anxiety disorder: 03/31 -patient extremely anxious, with negative, ruminative thoughts, and severe restlessness. -Increase sertraline as above. -At home dose of hydroxyzine 25 mg at bedtime, and offer 25 mg every 4 hours as needed anxiety. -Continue clonazepam 0.5 mg every morning, and add 0.5 mg dose twice daily as needed if hydroxyzine an effective, but monitor for unsteadiness and oversedation. 04/01/19 -As noted above, some of the patient's anxious distress may be secondary to eps side effects (akathisia). -On examination, the patient does have cogwheel rigidity. However, she tells me that she feels that she is somewhat less anxious and notes that the medications for her anxiety "may be helping." 04/02 -Patient remains highly anxious. Considered alternative options for bedtime hydroxyzine to reduce anticholinergic burden. Elected to trial the Remeron at 15 mg p.o. nightly which may help off label for feelings of restlessness. Hopefully this will also help to reduce her anxiety and provide some appetite stimulation but will need to watch for mood cycling in combination with the sertraline. If she does well with this agent, could consider using it as antidepressant monotherapy (tapering her off the Zoloft) 04/04 - Continue current medication regimen - consider increase or mirtazapine and possible taper of sertraline as outlined above; wanting to ensure tolerance prior to switching to mirtazapine as monotherapy 04/05 - Titrating mirtazapine to 30mg this evening; will continue sertraline at 100mg until efficacy of mirtazapine can be determined - Continue remainder of medication regimen unchanged 04/08 -As above, we are increasing her dose of sertraline to a dose of 125 mg daily to treat anxiety and depression. We will continue olanzapine to serve as a mood stabilizer given the patient's diagnosis of bipolar disorder. -Also as noted above, we have added diphenhydramine 12.5 mg twice a day for extraparametal side effects, persistent) EPS, and we will discontinue Artane. Hopefully, diphenhydramine will help not only with extraparametal side effects but, also, with the patient's generalized anxiety. -The patient's standing dose of clonazepam has been increased from 0.5 mg in the morning to 0.5 mg 3 times a day. She will also have available to her as needed clonazepam. Material risks and anticipated benefits of clonazepam have been reviewed with the patient, and it has been explained that this is not expected to be a long-term intervention but, instead, is being used to help bring the patient's anxiety under better control so that she can more fruitful he participate in the treatment on the. 04/09 - Continue current medication regimen; consider need for further titration of sertraline to 150mg daily - Patient appearing less restless/anxious, though she describes her symptoms to be unchanged 04/10 - Continue current medication regimen; consider titration of sertraline as above - pt limited in willingness to discuss multiple changes today - Patient's appearance is improving, though she reports limited changes in her condition 04/11 - Titrate sertraline to 150mg daily. Pt reporting daytime sedation, can consider possible reduction of prns at some point, when she begins to be more effective - Pt reporting mild improvements in anxiety (3) Hyponatremia: 03/31 -sodium 129 on initial presentation, improved to 130 after 1 liter NS in the ER. Encourage good p.o. intake, and recheck BMP tomorrow. 04/01 -current sodium level is within normal limits. 04/03 - Remeron low risk for hyponatremia 04/04 - BMP reviewed with patient today; hyponatremia now normalized at 137 - Reporting improved nutritional intake (4) Hypertension: 03/31 -continue lisinopril 10 mg daily. Monitor BP. 04/02 -BP again asymptomatically elevated this morning. We will increase lisinopril to 15 mg daily 04/03 -Tolerated increased dose of lisinopril adequately. Blood pressures remain elevated in a.m.'s. 04/05 - BP's remain elevated in the AMs. Event rechecks after medication administration have been mildly elevated. Will trial lisinopril 20mg tomorrow. - Continue to monitor 04/06 -Blood pressure has normalized, but remains tachycardic. Heart rate as high as 130 today. Will decrease Artane as above his heart rate is increased since it was started and it can cause tachycardia. 04/09 - Blood pressure remains elevated in the AM, improved in the afternoons - patient unwilling today to discuss titration of lisinopril - Review again tomorrow, consider HS dose of lisinopril if there is little improvement 04/10 - Ordered 10mg dose of lisinopril for this evening - with then begin 15mg BID dosing - If no improvement, consider discussing with hospitalist for further recommendations as she has not demonstrated strong response to changes thus far 04/11 - BP elevated again this morning - 179/108. Improved to 112/75 after receiving AM medications - Ordered clonidine 0.1mg q4h prn for systolic above 180 and/or diastolic above 100 - Will plan for vitals to be checked throughout the day (5) Hypokalemia: 04/01 -The patient's potassium level has remained 3.1 for 2 days now, within the context of poor oral intake. -Encourage oral intake. -Potassium chloride supplement 20 mEq daily x 6. 04/02 -Repeat BMP ordered for Thursday for sodium and potassium monitoring. 04/04 - Reviewed BMP with patient, hypokalemia now normalized - 3.9 - Continue to encourage adequate oral intake - Pt requesting trial of potassium supplement in tablet form Risk Factors Assessment Male: No : Yes Do You Have Access To A Gun?: Yes ( has guns that are locked) Health Problems: Yes Mental Health Diagnoses: Yes Substance Use Disorders: No Previous Attempt: No Family History of Suicide: No Previous Psychiatric Hospitalization: Yes Hopelessness: Yes Smoker: No Protective Factors Assessment : Yes Responsible for Young Children: No Employed: No Supportive Family: Yes Good Rapport with Provider: Yes Interval History Identifying Information VALENTINA CLARK is a 73-year-old F who currently lives in [place] with her , has a history of bipolar disorder type I and generalized anxiety disorder, and was admitted on 03/30/19 19:35 on a 201 voluntary commitment for severe anxiety and inability to function. Chief Complaint "Now on top of everything else, I'm having bowel problems." Review of Systems Notes Constitutional: denied Cardiovascular: denied Respiratory: denied Gastrointestinal: reports constipation, received prn Neurological: denied Psychiatric: denies symptoms other than stated above Total of at least 10 systems reviewed, pertinent positives as above and in HPI. Sleep Information Total Hours of Sleep: 8.25 Sleep Comments: pt appeared to sleep 1.75 hrs during evening shift. pt on q-15 minute checks Meal Information Percent Meal Consumed - Breakfast: 100 Percent Meal Consumed - Lunch: 50 Percent Meal Consumed - Dinner: 90 Nutrition Comment: Bites Subjective Subjective Patient was seen & assessed and interval progress reviewed with treatment team. Staff report the patient has been demonstrating some improvement. She showered last evening and washed her hair, something she was previously unwilling to consider due to her anxiety. Despite this, she continues to rate her mood a 1/10 and "anxious." Pt was seen today to assess progress since admission. Pt states she is "fair" today. She admits this is "about the same" and previously reported description of "so-so." Pt is somewhat concerned today, as she states she is now having "bowel problems on top of everything else." We reviewed reports of constipation today, and she has already received MOM. Pt reports feeling "sleepy and tired." We reviewed that medications that help reduce anxiety often can cause sedation. In order to possibly reduce dosing of clonazepam or diphenhydramine, it was recommended to the patient that sertraline be titrated to maximize on anti-anxiety properties of this medication and eventually reduce reliance on the others. Pt was verbalized understanding of this idea and was in agreement with titrating her sertraline to 150mg. Pt states her sleep is "fair", and reports it is at times hard to fall asleep after she has awoken in the night. Pt denies SI and other needs or concerns today. Physical Exam Psychiatric Orientation: alert, oriented x 3 and cooperative Apperance: appropriately dressed, appropriately groomed and appeared stated age Eye Contact: good eye contact Motor Behavior: steady gait and station (cautious but stable ambulation) and no abnormal motor movements Speech: normal rate/rhythm/volume of speech (shaky voice, anxious tone) Affect: + anxious affect (improving mildly) Mood: + anxious mood ("a little better") Thought Process: clear/coherent thought process and + concrete thought process Thought Content: + obsessions (intrusive thoughts regarding ) and + hopelessness Suicidal Thoughts: denies suicidal thoughts and denies suicidal intent Homicidal Thoughts: denies homicidal thoughts Hallucinations: no auditory hallucinations and no visual hallucinations Cognition: attention grossly intact and language grossly intact Estimated Intelligence: consistent with education level Insight: + limited insight Judgement: + limited judgement Vital Signs (Past 24 Hours) Last Vital Signs Temp 36.4 C L 04/11/19 06:46 Pulse 108 H 04/11/19 06:49 Resp 16 04/11/19 06:46 BP 179/108 H 04/11/19 06:49 Pulse Ox 97 04/11/19 06:46 Results & Data Current Inpatient Medications Current Inpatient Medications: Current Inpatient Medications Acetaminophen (Tylenol) 650 mg PO Q4H PRN PRN Reason: Headache or Minor Fever Stop: 04/29/19 19:02 Al Hydrox/Mg Hydrox/Simethicone (Maalox) 30 ml PO Q4H PRN PRN Reason: GI Upset Stop: 04/29/19 19:02 Bismuth Subsalicylate (Kaopectate) 15 ml PO PRN PRN PRN Reason: Loose Stool Stop: 04/29/19 19:02 Clonazepam (Klonopin) 0.5 mg PO BID PRN PRN Reason: Anxiety Stop: 04/30/19 09:43 Last Admin: 04/07/19 13:46 Dose: 0.5 mg Documented by: Clonazepam (Klonopin) 0.5 mg PO TID PILI Stop: 05/08/19 13:59 Last Admin: 04/11/19 08:05 Dose: 0.5 mg Documented by: Diphenhydramine HCl (Benadryl Syrup) 12.5 mg PO BID [facility] Stop: 05/08/19 09:59 Last Admin: 04/11/19 08:03 Dose: 12.5 mg Documented by: Hydroxyzine HCl (Vistaril) 25 mg PO Q4H PRN PRN Reason: Anxiety Stop: 04/29/19 19:02 Last Admin: 03/31/19 22:45 Dose: 25 mg Documented by: Lisinopril (Zestril) 15 mg PO BID PILI Stop: 05/11/19 08:59 Last Admin: 04/11/19 08:03 Dose: 15 mg Documented by: Magnesium Hydroxide (Milk Of Magnesia) 30 ml PO DAILY PRN PRN Reason: Heartburn Stop: 04/29/19 19:02 Mirtazapine (Remeron) 30 mg PO HS PILI Stop: 05/05/19 21:59 Last Admin: 04/10/19 20:48 Dose: 30 mg Documented by: Olanzapine (Zyprexa) 10 mg PO QPM PILI Stop: 04/30/19 20:59 Last Admin: 04/10/19 20:47 Dose: 10 mg Documented by: Olanzapine (Zyprexa) 2.5 mg PO BID PRN PRN Reason: agitation/anxiety Stop: 05/10/19 08:59 Last Admin: 04/10/19 08:45 Dose: 2.5 mg Documented by: Sertraline HCl (Zoloft) 25 mg PO QAM PILI Stop: 05/09/19 08:59 Last Admin: 04/11/19 08:04 Dose: 25 mg Documented by: Sertraline HCl (Zoloft) 100 mg PO QAM PILI Stop: 05/09/19 08:59 Last Admin: 04/11/19 08:04 Dose: 100 mg Documented by: Sodium Chloride ([place] Nasal) 1 - 2 sprays NA PRN PRN PRN Reason: Nasal Dryness/Congestion Stop: 04/29/19 19:02 Mental Health & Subst Abuse Tx Psychiatrist Name of Psychiatrist: BENJAMIN Carey Astudillo Psychiatrist's Date of Appointment with Psychiatrist: 04/20/19 Time of Appointment with Psychiatrist: 2:00 p.m. Psychiatric Appointment Comment: [address] [place] [address] Therapist Name of Therapist: BENJAMIN Carey Petersen Therapist's Date of Therapist Appointment: 04/19/19 Time of Therapist Appointment: 1:30 p.m. Therapy Appointment Comment: [address] [place] [address] Post Discharge Appointments Primary Care Physician Name Of Family Doctor: [facility] - Dr. Ay[facility] Date of Appointment with PCP: 04/25/19 Time of Appointment with PCP: 10:30 a.m. Provider Appointment Comment: [address], [address], [place] [address] Contact Information Discharge Discharge Address: [address] [place] [id number] CPT Code CPT Code 38832
[2019-04-11] MEDS ORDERED: cloNIDine HCl 0.1 MG TAB PO PRN (09:17)
[2019-04-11] MEDS: MIRTAZAPINE TAB 15 MG TAB PO SCH (21:19)
[2019-04-11] MEDS: OLANZapine 5 MG TABLET PO SCH (21:19)
[2019-04-12] MEDS: clonazePAM 0.5 MG TAB PO SCH (07:41)
[2019-04-12] MEDS: LISINOPRIL 10 MG TAB PO SCH ×2 (07:41→20:54)
[2019-04-12] MEDS: diphenhydrAMINE HCl 12.5 MG/5 ML UDC PO SCH (07:41)
[2019-04-12] MEDS: SERTRALINE HCL 100 MG TABLET PO SCH (07:42)
[2019-04-12] MEDS: SERTRALINE HCL 50 MG TABLET PO SCH (07:43)
--- NOTE | 2019-04-12 09:23 | Psychiatric Progress Note ---
Date of Service April 12, 2019 Impression / Recommendations Impression 73-year-old female with a history of bipolar 1 and generalized anxiety disorder who was admitted voluntarily with severe, debilitating anxiety, depression, and inability to function. She had electrolyte abnormalities on presentation due to poor p.o. intake, was not sleeping, performing ADLs or getting out of bed at home. She has lost weight, and is cognitively impaired, and a limited historian. She has had multiple medication adjustments to target her anxiety and depressive symptoms. Her care is complex due to bipolar type I with history of freedom, trying to utilize medications to target anxiety while avoiding activation/freedom and akathisia. Ongoing medication adjustments are being pursued to target these concerns, as well as episodes of EPS. Inpatient treatment is medically necessary and remains the least restrictive option until patient is better able to demonstrate an ability to function in the outpatient setting. (1) Bipolar 1 disorder: 03/31 -current episode depressed with severe anxiety. -Clarify home med list, as there are some discrepancies (external medication history shows that she filled #30 olanzapine 10 mg tablets and hydroxyzine 25 mg tablets on 03/18/2019, but admission medication reconciliation indicates olanzapine 15 mg every afternoon and hydralazine 25 mg every afternoon). Nursing staff to call her and clarify this: Patient is not prescribed hydralazine, will remove medication. She did receive a dose last night, and blood pressure this morning was elevated 163/89, but on repeat 124/71. -Increase sertraline to 100 mg daily to target mood and anxiety, and watch for activation/mood stabilization. -It is unclear if her home dose of olanzapine is 10 or 15 mg; she received 15 mg last night, and I am concerned for EPS given her cogwheeling on exam and severe restlessness. Order benztropine 0.5 mg as needed, and reduce olanzapine to 10 milligrams at bedtime. Per she was only on 10mg olanzapine at home. May need to reduce dose further or switch to another antipsychotic if EPS does not improve. -Fasting lipid profile and glucose performed on 09/30/2018 for monitoring on an atypical antipsychotic, and were within normal limits. 04/01 -Contributing to the patient's severe anxiety may be akathisia associated with olanzapine and, possibly, sertraline. I have advised the patient accordingly, and she accepts my recommendation for a standing dose of Artane (trihexyphenidyl) -Patient otherwise indicates that she feels that she has been tolerating olanzapine well, and reports that she feels this medication has been helpful to her. -The patient's dose of sertraline has been increased to 100 mg daily 04/02 -Patient more unsteady today. Will hold any further doses of diphenhydramine for now. She does not have any cogwheeling; once she is able to relax the paratonia disappears -Patient now on moderate dose of SSRI. Reviewed she had been manic at last presentation. Considering Remeron trial which may help with restlessness and anxiety and allow for reduction of some of the anticholinergic medication she has been started on however patient appeared overwhelmed when attempting to discuss today and will defer for reconsideration tomorrow -patient refused physical therapy referral for imbalance today 04/04 - Continue current medication regimen, consider titration of mirtazapine with observation for activation 04/05 - Titrating mirtazapine to 30mg this evening - continue to monitor for possible activation and triggering of manic symptoms - Once efficacy is apparent, consider tapering sertraline to achieve antidepressant monotherapy - Continue remainder of medication regimen unchanged 04/06 - Patient reports mood and restlessness are slightly improved. - Worsening tachycardia with heart rate as high as 130, with worsening after Artane was started. As this medication can cause tachycardia, will decrease it to 1 mg twice daily. 04/07 -Tachycardia has resolved with lowered Artane dose. Restlessness is improved. 04/08 -While the patient's restlessness has improved, today, she continues to complain of restlessness and, on testing, demonstrates persistent cogwheeling. Currently, we will offer the patient a trial of diphenhydramine 12.5 mg twice a day. The target of diphenhydramine in this case is the patient's EPS, but we are also hopeful that it will aid in managing the patient's anxiety. -The patient is complaining of persistent anxiety and intrusive, ego dystonic thoughts that she tells me she is embarrassed to discuss. I offered the patient reassurances in this regard. -The patient reports that she is not having suicidal thoughts. 04/09 - 04/10 - Continue current medication regimen, reportedly demonstrating improvement 04/11 - Titrating sertraline to 150mg daily, continue remainder of current medication regimen 04/12 - Continue plan as above (2) Generalized anxiety disorder: 03/31 -patient extremely anxious, with negative, ruminative thoughts, and severe restlessness. -Increase sertraline as above. -At home dose of hydroxyzine 25 mg at bedtime, and offer 25 mg every 4 hours as needed anxiety. -Continue clonazepam 0.5 mg every morning, and add 0.5 mg dose twice daily as needed if hydroxyzine an effective, but monitor for unsteadiness and oversedation. 04/01/19 -As noted above, some of the patient's anxious distress may be secondary to eps side effects (akathisia). -On examination, the patient does have cogwheel rigidity. However, she tells me that she feels that she is somewhat less anxious and notes that the medications for her anxiety "may be helping." 04/02 -Patient remains highly anxious. Considered alternative options for bedtime hydroxyzine to reduce anticholinergic burden. Elected to trial the Remeron at 15 mg p.o. nightly which may help off label for feelings of restlessness. Hopefully this will also help to reduce her anxiety and provide some appetite stimulation but will need to watch for mood cycling in combination with the sertraline. If she does well with this agent, could consider using it as antidepressant monotherapy (tapering her off the Zoloft) 04/04 - Continue current medication regimen - consider increase or mirtazapine and possible taper of sertraline as outlined above; wanting to ensure tolerance prior to switching to mirtazapine as monotherapy 04/05 - Titrating mirtazapine to 30mg this evening; will continue sertraline at 100mg until efficacy of mirtazapine can be determined - Continue remainder of medication regimen unchanged 04/08 -As above, we are increasing her dose of sertraline to a dose of 125 mg daily to treat anxiety and depression. We will continue olanzapine to serve as a mood stabilizer given the patient's diagnosis of bipolar disorder. -Also as noted above, we have added diphenhydramine 12.5 mg twice a day for extraparametal side effects, persistent) EPS, and we will discontinue Artane. Hopefully, diphenhydramine will help not only with extraparametal side effects but, also, with the patient's generalized anxiety. -The patient's standing dose of clonazepam has been increased from 0.5 mg in the morning to 0.5 mg 3 times a day. She will also have available to her as needed clonazepam. Material risks and anticipated benefits of clonazepam have been reviewed with the patient, and it has been explained that this is not expected to be a long-term intervention but, instead, is being used to help bring the patient's anxiety under better control so that she can more fruitful he participate in the treatment on the. 04/09 - Continue current medication regimen; consider need for further titration of sertraline to 150mg daily - Patient appearing less restless/anxious, though she describes her symptoms to be unchanged 04/10 - Continue current medication regimen; consider titration of sertraline as above - pt limited in willingness to discuss multiple changes today - Patient's appearance is improving, though she reports limited changes in her condition 04/11 - Titrate sertraline to 150mg daily. Pt reporting daytime sedation, can consider possible reduction of prns at some point, when she begins to be more effective - Pt reporting mild improvements in anxiety 04/12 - Continue sertraline 150mg daily - In attempt to reduce sedation, but maintain progress with reducing an xiety/restlessness - will titrate diphenhydramine to 25mg daily (this will also allow for medication in capsule form, which patient prefers). Will discontinue scheduled TID clonazepam, but leave available prn dosing should patient require it during the day for anxiety or other concerns. - Staff also reporting apneic episodes observed at night; reducing reliance on benzodiazepines will be ideal as will reduce additional risk for respiratory concerns - Continue to encourage development of healthy and effective coping strategies (3) Hyponatremia: 03/31 -sodium 129 on initial presentation, improved to 130 after 1 liter NS in the ER. Encourage good p.o. intake, and recheck BMP tomorrow. 04/01 -current sodium level is within normal limits. 04/03 - Remeron low risk for hyponatremia 04/04 - BMP reviewed with patient today; hyponatremia now normalized at 137 - Reporting improved nutritional intake (4) Hypertension: 03/31 -continue lisinopril 10 mg daily. Monitor BP. 04/02 -BP again asymptomatically elevated this morning. We will increase lisinopril to 15 mg daily 04/03 -Tolerated increased dose of lisinopril adequately. Blood pressures remain elevated in a.m.'s. 04/05 - BP's remain elevated in the AMs. Event rechecks after medication administration have been mildly elevated. Will trial lisinopril 20mg tomorrow. - Continue to monitor 04/06 -Blood pressure has normalized, but remains tachycardic. Heart rate as high as 130 today. Will decrease Artane as above his heart rate is increased since it was started and it can cause tachycardia. 04/09 - Blood pressure remains elevated in the AM, improved in the afternoons - patient unwilling today to discuss titration of lisinopril - Review again tomorrow, consider HS dose of lisinopril if there is little improvement 04/10 - Ordered 10mg dose of lisinopril for this evening - with then begin 15mg BID dosing - If no improvement, consider discussing with hospitalist for further recommendations as she has not demonstrated strong response to changes thus far 04/11 - BP elevated again this morning - 179/108. Improved to 112/75 after receiving AM medications - Ordered clonidine 0.1mg q4h prn for systolic above 180 and/or diastolic above 100 - Will plan for vitals to be checked throughout the day 04/12 - Pt tolerating BID dosing of lisinopril - AM BP was elevated, but not as significantly as previous days; afternoon readings show improvement - Will continue to check vitals throughout the day to ensure consistency (5) Hypokalemia: 04/01 -The patient's potassium level has remained 3.1 for 2 days now, within the context of poor oral intake. -Encourage oral intake. -Potassium chloride supplement 20 mEq daily x 6. 04/02 -Repeat BMP ordered for Thursday for sodium and potassium monitoring. 04/04 - Reviewed BMP with patient, hypokalemia now normalized - 3.9 - Continue to encourage adequate oral intake - Pt requesting trial of potassium supplement in tablet form Risk Factors Assessment Male: No : Yes Do You Have Access To A Gun?: Yes ( has guns that are locked) Health Problems: Yes Mental Health Diagnoses: Yes Substance Use Disorders: No Previous Attempt: No Family History of Suicide: No Previous Psychiatric Hospitalization: Yes Hopelessness: Yes Smoker: No Protective Factors Assessment : Yes Responsible for Young Children: No Employed: No Supportive Family: Yes Good Rapport with Provider: Yes Interval History Identifying Information VALENTINA CLARK is a 73-year-old F who currently lives in [place] with her , has a history of bipolar disorder type I and generalized anxiety disorder, and was admitted on 03/30/19 19:35 on a 201 voluntary commitment for severe anxiety and inability to function. Chief Complaint "Um, okay." Review of Systems Notes Constitutional: reports improved but still consistent restlessness Cardiovascular: denied Respiratory: denied Gastrointestinal: reports bowel movement since yesterday, with use of prn Neurological: denied Psychiatric: denies symptoms other than stated above Total of at least 10 systems reviewed, pertinent positives as above and in HPI. Sleep Information Total Hours of Sleep: 8 Sleep Comments: pt. remains with obstructed breathing with 25 sec. episodes of no audicle sounds then an obsructed loud inhalation in a repeating pattern throu gh the night. Meal Information Percent Meal Consumed - Breakfast: 100 Percent Meal Consumed - Lunch: 50 Percent Meal Consumed - Dinner: 50 Nutrition Comment: Bites Subjective Subjective Patient was seen & assessed and interval progress reviewed with nursing and social work. Staff report the patient continues to appear mildly improved, but displays an anxious affect most of the day. She does brighten consistently when her visits in the evenings. Pt was seen today to assess progress since admission. Pt states she is "ok today." Reporting that she feels "a little bit better." Pt states that she is still anxious, but admits to some improvements in this feeling. Pt reports ongoing fatigue, and is agreeable to medication adjustments to attempt to manage her anxiety while reducing use of medications that may be contributing to her sedation. Pt verbalized understanding of this idea when presented by this provider, and was agreeable to plan to titrate diphenhydramine to 25mg daily (to target ongoing anxiety, EPS, and eliminate need for liquid medication which patient does not prefer the taste of). We will then make her clonazepam prn, in an attempt to eventually reduce polypharmacy and use of multiple sedating medications. This process was explained to patient who stated she understood the intention of these changes. She was agreeable to these adjustments. Pt continues to attend group programming regularly, but admits that it is difficult to focus at time. She reports a bowel movement since yesterday, when she was complaining of constipation. Pt denies other needs or concerns at this time. Physical Exam Psychiatric Orientation: alert, oriented x 3 and cooperative Apperance: appropriately dressed, appropriately groomed (hair appears somewhat greasy, but patient is shower regularly) and appeared stated age Eye Contact: good eye contact (not squinting as significantly today) Motor Behavior: steady gait and station (cautious but stable ambulation) Speech: normal rate/rhythm/volume of speech (continues to respond to questions with brief answers) Affect: + anxious affect and + constricted affect Mood: + anxious mood (ongoing anxiety reported, but feeling "a little bit better") Thought Process: goal directed thought process, clear/coherent thought process and + concrete thought process Thought Content: + preoccupation (with anxiety and racing thoughts) and reality based without delusions won't discuss, but likely ongoing dark intrusive thoughts Suicidal Thoughts: denies suicidal thoughts and denies suicidal intent Homicidal Thoughts: denies homicidal intent Hallucinations: no auditory hallucinations and no visual hallucinations Cognition: attention grossly intact and language grossly intact Estimated Intelligence: consistent with education level Insight: + limited insight Judgement: + limited judgement Vital Signs (Past 24 Hours) Last Vital Signs Temp 36.3 C L 04/12/19 06:57 Pulse 97 H 04/12/19 06:59 Resp 16 04/12/19 06:57 BP 160/89 H 04/12/19 06:59 Pulse Ox 97 04/11/19 06:46 Results & Data Current Inpatient Medications Current Inpatient Medications: Current Inpatient Medications Acetaminophen (Tylenol) 650 mg PO Q4H PRN PRN Reason: Headache or Minor Fever Stop: 04/29/19 19:02 Al Hydrox/Mg Hydrox/Simethicone (Maalox) 30 ml PO Q4H PRN PRN Reason: GI Upset Stop: 04/29/19 19:02 Bismuth Subsalicylate (Kaopectate) 15 ml PO PRN PRN PRN Reason: Loose Stool Stop: 04/29/19 19:02 Clonazepam (Klonopin) 0.5 mg PO BID PRN PRN Reason: Anxiety Stop: 04/30/19 09:43 Last Admin: 04/07/19 13:46 Dose: 0.5 mg Documented by: Clonazepam (Klonopin) 0.5 mg PO TID PILI Stop: 05/08/19 13:59 Last Admin: 04/12/19 07:41 Dose: 0.5 mg Documented by: Clonidine HCl (Catapres) 0.1 mg PO Q4H PRN PRN Reason: Hypertension Stop: 05/11/19 09:16 Diphenhydramine HCl (Benadryl Syrup) 12.5 mg PO BID PILI Stop: 05/08/19 09:59 Last Admin: 04/12/19 07:41 Dose: 12.5 mg Documented by: Hydroxyzine HCl (Vistaril) 25 mg PO Q4H PRN PRN Reason: Anxiety Stop: 04/29/19 19:02 Last Admin: 03/31/19 22:45 Dose: 25 mg Documented by: Lisinopril (Zestril) 15 mg PO BID PILI Stop: 05/11/19 08:59 Last Admin: 04/12/19 07:41 Dose: 15 mg Documented by: Magnesium Hydroxide (Milk Of Magnesia) 30 ml PO DAILY PRN PRN Reason: Heartburn Stop: 04/29/19 19:02 Last Admin: 04/11/19 13:23 Dose: 30 ml Documented by: Mirtazapine (Remeron) 30 mg PO HS PILI Stop: 05/05/19 21:59 Last Admin: 04/11/19 21:19 Dose: 30 mg Documented by: Olanzapine (Zyprexa) 10 mg PO QPM PILI Stop: 04/30/19 20:59 Last Admin: 04/11/19 21:19 Dose: 10 mg Documented by: Olanzapine (Zyprexa) 2.5 mg PO BID PRN PRN Reason: agitation/anxiety Stop: 05/10/19 08:59 Last Admin: 04/10/19 08:45 Dose: 2.5 mg Documented by: Sertraline HCl (Zoloft) 100 mg PO QAM [facility] Stop: 05/09/19 08:59 Last Admin: 04/12/19 07:42 Dose: 100 mg Documented by: Sertraline HCl (Zoloft) 50 mg PO QAM [facility] Stop: 05/12/19 08:59 Last Admin: 04/12/19 07:43 Dose: 50 mg Documented by: Sodium Chloride ([place] Nasal) 1 - 2 sprays NA PRN PRN PRN Reason: Nasal Dryness/Congestion Stop: 04/29/19 19:02 Mental Health & Subst Abuse Tx Psychiatrist Name of Psychiatrist: [facility] Carey Astudillo Psychiatrist's Date of Appointment with Psychiatrist: 04/20/19 Time of Appointment with Psychiatrist: 2:00 p.m. Psychiatric Appointment Comment: [address] [facility] [address] Therapist Name of Therapist: [facility] Carey Petersen Therapist's Date of Therapist Appointment: 04/19/19 Time of Therapist Appointment: 1:30 p.m. Therapy Appointment Comment: [address] [place] [address] Post Discharge Appointments Primary Care Physician Name Of Family Doctor: [facility] - Dr. Ayala [facility] Date of Appointment with PCP: 04/25/19 Time of Appointment with PCP: 10:30 a.m. Provider Appointment Comment: [address], [address], [place] [address] Contact Information Discharge Discharge Address: [address] [place] [id number] CPT Code CPT Code 19514
[2019-04-12] MEDS: OLANZapine 5 MG TABLET PO SCH (20:54)
[2019-04-12] MEDS: MIRTAZAPINE TAB 15 MG TAB PO SCH (20:54)
[2019-04-13] MEDS: ACETAMINOPHEN 325 MG TAB PO PRN (04:30)
[2019-04-13] MEDS: LISINOPRIL 10 MG TAB PO SCH ×2 (07:50→20:49)
[2019-04-13] MEDS: SERTRALINE HCL 50 MG TABLET PO SCH (07:51)
[2019-04-13] MEDS: SERTRALINE HCL 100 MG TABLET PO SCH (07:51)
--- NOTE | 2019-04-13 09:31 | Psychiatric Progress Note ---
Date of Service April 13, 2019 Impression / Recommendations Impression 73-year-old female with a history of bipolar 1 and generalized anxiety disorder who was admitted voluntarily with severe, debilitating anxiety, depression, and inability to function. She had electrolyte abnormalities on presentation due to poor p.o. intake, was not sleeping, performing ADLs or getting out of bed at home. She has lost weight, and is cognitively impaired, and a limited historian. She has had multiple medication adjustments to target her anxiety and depressive symptoms. Her care is complex due to bipolar type I with history of freedom, trying to utilize medications to target anxiety while avoiding activation/rfeedom and akathisia. Ongoing medication adjustments are being pursued to target these concerns, as well as episodes of EPS. Patient has been more open about intrusive thoughts she has been experiencing for several months prior to her admission. She is extremely distressed by these homicidal thoughts towards her and family, and denies intent to act on them. We w ill continue medication adjustments to target these thoughts as well. Inpatient treatment is medically necessary and remains the least restrictive option until patient is better able to demonstrate an ability to function in the outpatient setting. (1) Bipolar 1 disorder: 03/31 -current episode depressed with severe anxiety. -Clarify home med list, as there are some discrepancies (external medication history shows that she filled #30 olanzapine 10 mg tablets and hydroxyzine 25 mg tablets on 03/18/2019, but admission medication reconciliation indicates olanzapine 15 mg every afternoon and hydralazine 25 mg every afternoon). Nursing staff to call her and clarify this: Patient is not prescribed hydralazine, will remove medication. She did receive a dose last night, and blood pressure this morning was elevated 163/89, but on repeat 124/71. -Increase sertraline to 100 mg daily to target mood and anxiety, and watch for activation/mood stabilization. -It is unclear if her home dose of olanzapine is 10 or 15 mg; she received 15 mg last night, and I am concerned for EPS given her cogwheeling on exam and severe restlessness. Order benztropine 0.5 mg as needed, and reduce olanzapine to 10 milligrams at bedtime. Per she was only on 10mg olanzapine at home. May need to reduce dose further or switch to another antipsychotic if EPS does not improve. -Fasting lipid profile and glucose performed on 09/30/2018 for monitoring on an atypical antipsychotic, and were within normal limits. 04/01 -Contributing to the patient's severe anxiety may be akathisia associated with olanzapine and, possibly, sertraline. I have advised the patient accordingly, and she accepts my recommendation for a standing dose of Artane (trihexyphenidyl) -Patient otherwise indicates that she feels that she has been tolerating olanzapine well, and reports that she feels this medication has been helpful to her. -The patient's dose of sertraline has been increased to 100 mg daily 04/02 -Patient more unsteady today. Will hold any further doses of diphenhydramine for now. She does not have any cogwheeling; once she is able to relax the paratonia disappears -Patient now on moderate dose of SSRI. Reviewed she had been manic at last presentation. Considering Remeron trial which may help with restlessness and anxiety and allow for reduction of some of the anticholinergic medication she has been started on however patient appeared overwhelmed when attempting to discuss today and will defer for reconsideration tomorrow -patient refused physical therapy referral for imbalance today 04/04 - Continue current medication regimen, consider titration of mirtazapine with observation for activation 04/05 - Titrating mirtazapine to 30mg this evening - continue to monitor for possible activation and triggering of manic symptoms - Once efficacy is apparent, consider tapering sertraline to achieve antidepressant monotherapy - Continue remainder of medication regimen unchanged 04/06 - Patient reports mood and restlessness are slightly improved. - Worsening tachycardia with heart rate as high as 130, with worsening after Artane was started. As this medication can cause tachycardia, will decrease it to 1 mg twice daily. 04/07 -Tachycardia has resolved with lowered Artane dose. Restlessness is improved. 04/08 -While the patient's restlessness has improved, today, she continues to complain of restlessness and, on testing, demonstrates persistent cogwheeling. Currently, we will offer the patient a trial of diphenhydramine 12.5 mg twice a day. The target of diphenhydramine in this case is the patient's EPS, but we are also hopeful that it will aid in managing the patient's anxiety. -The patient is complaining of persistent anxiety and intrusive, ego dystonic thoughts that she tells me she is embarrassed to discuss. I offered the patient reassurances in this regard. -The patient reports that she is not having suicidal thoughts. 04/09 - 04/10 - Continue current medication regimen, reportedly demonstrating improvement 04/11 - Titrating sertraline to 150mg daily, continue remainder of current medication regimen 04/12 - Continue plan as above 04/13 - Titrating sertraline to 175mg daily, continue remainder of medication regimen for now - Pt reporting significant distress from intrusive thoughts - consider alternative options to reduce distress. Did not tolerate 15 mg dose of olanzapine due to EPS, but could consider split dosing 5 mg / 10 mg. Could also consider retrial of risperidone, or alternative agents. (2) Generalized anxiety disorder: 03/31 -patient extremely anxious, with negative, ruminative thoughts, and severe restlessness. -Increase sertraline as above. -At home dose of hydroxyzine 25 mg at bedtime, and offer 25 mg every 4 hours as needed anxiety. -Continue clonazepam 0.5 mg every morning, and add 0.5 mg dose twice daily as needed if hydroxyzine an effective, but monitor for unsteadiness and oversedation. 04/01/19 -As noted above, some of the patient's anxious distress may be secondary to eps side effects (akathisia). -On examination, the patient does have cogwheel rigidity. However, she tells me that she feels that she is somewhat less anxious and notes that the medications for her anxiety "may be helping." 04/02 -Patient remains highly anxious. Considered alternative options for bedtime hydroxyzine to reduce anticholinergic burden. Elected to trial the Remeron at 15 mg p.o. nightly which may help off label for feelings of restlessness. Hopefully this will also help to reduce her anxiety and provide some appetite stimulation but will need to watch for mood cycling in combination with the sertraline. If she does well with this agent, could consider using it as antidepressant monotherapy (tapering her off the Zoloft) 04/04 - Continue current medication regimen - consider increase or mirtazapine and possible taper of sertraline as outlined above; wanting to ensure tolerance prior to switching to mirtazapine as monotherapy 04/05 - Titrating mirtazapine to 30mg this evening; will continue sertraline at 1 00mg until efficacy of mirtazapine can be determined - Continue remainder of medication regimen unchanged 04/08 -As above, we are increasing her dose of sertraline to a dose of 125 mg daily to treat anxiety and depression. We will continue olanzapine to serve as a mood stabilizer given the patient's diagnosis of bipolar disorder. -Also as noted above, we have added diphenhydramine 12.5 mg twice a day for extraparametal side effects, persistent) EPS, and we will discontinue Artane. Hopefully, diphenhydramine will help not only with extraparametal side effects but, also, with the patient's generalized anxiety. -The patient's standing dose of clonazepam has been increased from 0.5 mg in the morning to 0.5 mg 3 times a day. She will also have available to her as needed clonazepam. Material risks and anticipated benefits of clonazepam have been reviewed with the patient, and it has been explained that this is not expected to be a long-term intervention but, instead, is being used to help bring the patient's anxiety under better control so that she can more fruitful he participate in the treatment on the. 04/09 - Continue current medication regimen; consider need for further titration of sertraline to 150mg daily - Patient appearing less restless/anxious, though she describes her symptoms to be unchanged 04/10 - Continue current medication regimen; consider titration of sertraline as above - pt limited in willingness to discuss multiple changes today - Patient's appearance is improving, though she reports limited changes in her condition 04/11 - Titrate sertraline to 150mg daily. Pt reporting daytime sedation, can consider possible reduction of prns at some point, when she begins to be more effective - Pt reporting mild improvements in anxiety 04/12 - Continue sertraline 150mg daily - In attempt to reduce sedation, but maintain progress with reducing anxiety/restlessness - will titrate diphenhydramine to 25mg daily (this will also allow for medication in capsule form, which patient prefers). Will discontinue scheduled TID clonazepam, but leave available prn dosing should patient require it during the day for anxiety or other concerns. - Staff also reporting apneic episodes observed at night; reducing reliance on benzodiazepines will be ideal as will reduce additional risk for respiratory concerns - Continue to encourage development of healthy and effective coping strategies 04/13 - Titrating sertraline to 175mg daily - Continue remainder of medication regimen as above - Pt has been more open about intrusive homicidal thoughts, distressing, with no intent to act. Pt is very disturbed by these thoughts - Patient unwilling for additional medication adjustments today; however, could consider titration of olanzapine. Patient did experience significant EPS when she received a 15 mg dose early in her admission. Consider split dosing - 5mg/10mg - Also consider retrial for risperidone (beneficial on last admission), possibly as prn and then scheduled in place of olanzapine if effective. Can also consider trial of another atypical antipsychotic which may better target concerns. (3) Hyponatremia: 03/31 -sodium 129 on initial presentation, improved to 130 after 1 liter NS in the ER. Encourage good p.o. intake, and recheck BMP tomorrow. 04/01 -current sodium level is within normal limits. 04/03 - Remeron low risk for hyponatremia 04/04 - BMP reviewed with patient today; hyponatremia now normalized at 137 - Reporting improved nutritional intake (4) Hypertension: 03/31 -continue lisinopril 10 mg daily. Monitor BP. 04/02 -BP again asymptomatically elevated this morning. We will increase lisinopril to 15 mg daily 04/03 -Tolerated increased dose of lisinopril adequately. Blood pressures remain elevated in a.m.'s. 04/05 - BP's remain elevated in the AMs. Event rechecks after medication administration have been mildly elevated. Will trial lisinopril 20mg tomorrow. - Continue to monitor 04/06 -Blood pressure has normalized, but remains tachycardic. Heart rate as high as 130 today. Will decrease Artane as above his heart rate is increased since it was started and it can cause tachycardia. 04/09 - Blood pressure remains elevated in the AM, improved in the afternoons - patient unwilling today to discuss titration of lisinopril - Review again tomorrow, consider HS dose of lisinopril if there is little improvement 04/10 - Ordered 10mg dose of lisinopril for this evening - with then begin 15mg BID dosing - If no improvement, consider discussing with hospitalist for further recommendations as she has not demonstrated strong response to changes thus far 04/11 - BP elevated again this morning - 179/108. Improved to 112/75 after receiving AM medications - Ordered clonidine 0.1mg q4h prn for systolic above 180 and/or diastolic above 100 - Will plan for vitals to be checked throughout the day 04/12 - Pt tolerating BID dosing of lisinopril - AM BP was elevated, but not as significantly as previous days; afternoon readings show improvement - Will continue to check vitals throughout the day to ensure consistency 04/13 - Continued improvement noted in patient's blood pressure readings - Continue lisinopril 15mg BID (5) Hypokalemia: 04/01 -The patient's potassium level has remained 3.1 for 2 days now, within the context of poor oral intake. -Encourage oral intake. -Potassium chloride supplement 20 mEq daily x 6. 04/02 -Repeat BMP ordered for Thursday for sodium and potassium monitoring. 04/04 - Reviewed BMP with patient, hypokalemia now normalized - 3.9 - Continue to encourage adequate oral intake - Pt requesting trial of potassium supplement in tablet form Risk Factors Assessment Male: No : Yes Do You Have Access To A Gun?: Yes ( has guns that are locked) Health Problems: Yes Mental Health Diagnoses: Yes Substance Use Disorders: No Previous Attempt: No Family History of Suicide: No Previous Psychiatric Hospitalization: Yes Hopelessness: Yes Smoker: No Protective Factors Assessment : Yes Responsible for Young Children: No Employed: No Supportive Family: Yes Good Rapport with Provider: Yes Interval History Identifying Information VALENTINA CLARK is a 73-year-old F who currently lives in [place] with her , has a history of bipolar disorder type I and generalized anxiety disorder, and was admitted on 03/30/19 19:35 on a 201 voluntary commitment for severe anxiety and inability to function. Chief Complaint "Kind of rough. A lot of racing thoughts." Review of Systems Notes Constitutional: reports restlessness, poor sleep last evening Cardiovascular: denied Respiratory: denied Gastrointestinal: denied Neurological: denied Psychiatric: denies symptoms other than stated above Total of at least 10 systems reviewed, pertinent positives as above and in HPI. Sleep Information Total Hours of Sleep: 6.75 Sleep Comments: pt. remains with obstructed breathing with 25 sec. episodes of no audicle sounds then an obsructed loud inhalation in a repeating pattern through the night. Meal Information Percent Meal Consumed - Breakfast: 100 Percent Meal Consumed - Lunch: 100 Percent Meal Consumed - Dinner: 50 Nutrition Comment: Bites Subjective Subjective Patient was seen & assessed and interval progress reviewed with treatment team. Staff reports the patient's hypertension appears to be improved. It is reported patient has been malodorous, has not showered in several days, and continues to refuse to wash her hair. Patient has been selective about who she shares her intrusive thoughts with; however, it is reported that these intrusive homicidal thoughts towards her family are ongoing.Patient was seen today to assess progress since admission. She states that she is feeling "kind of rough" today. The patient states that she is not noticing much improvement in her condition, and continues to feel rather anxious. This provider asked if patient felt comfortable revealing the nature of her racing thoughts, which she denied. Patient states that she did not sleep well last evening, and is therefore tired today. Otherwise, she has not noticed a significant difference with medication adjustments made yesterday. Patient was agreeable to titrating her dose of sertraline to 175 mg daily in order to target her ongoing anxiety and intrusive thoughts. Initial encounter with patient was rather superficial in nature, as she reported feeling uncomfortable discussing much more. Patient did return to this provider's office about half an hour later, requesting to talk. She appeared more anxious and distressed. Patient was invited to sit down, and immediately shared with this provider that she is having homicidal thoughts to harm her and family. Patient states "I am a good [employer]ist woman, I feel like the devil has a hold of me." In order to attempt to reduce patient's distress, this provider offered education on "intrusive thoughts" hoping that giving these homicidal thoughts a label would reduce her guilt surrounding the situation. This provider shared the nature of intrusive thoughts, and that they are often thoughts that are not desired or that people believe they could never act on. Patient, as expected, required significant reassurance, as she continued to state "I bet you never seen this before. At least not this bad. At least not thoughts of people wanting to hurt the people they love." Patient was informed that this provider has seen patients in similar situations before, and that we have been able to help him feel more comfortable and reduce the presence of these intrusive thoughts. Patient was informed that staff has experience with presentations like this as well, and that she is not being judged by anyone on the unit. Patient was informed that her intentions are to help her feel better, and eliminate these intrusive thoughts that have been so disturbing to her patient appeared only mildly calmer at the end of our conversation. This provider shared her appreciation that the patient was comfortable sharing the nature of these thoughts, and encouraged her to continue to discuss with staff so we can unders tand how to better address her needs. Patient was agreeable to this. Physical Exam Psychiatric Orientation: alert, oriented x 3 and cooperative Apperance: appropriately dressed, + disheveled and appeared stated age; + inappropriately groomed (Has not showered in several days, hair appearing very greasy) Eye Contact: good eye contact Motor Behavior: steady gait and station (Cautious, but stable ambulation) and no abnormal motor movements Speech: normal rate/rhythm/volume of speech Affect: + anxious affect and + blunted affect Mood: + depressed mood and + anxious mood "Kind of rough" Thought Process: goal directed thought process, clear/coherent thought process and + concrete thought process (During initial conversation, when unable to discuss intrusive thoughts) Thought Content: + preoccupation (intrusive, homicidal thoughts towards family), + hopelessness and + guilt Suicidal Thoughts: denies suicidal thoughts Homicidal Thoughts: denies homicidal thoughts (Admits to vivid intrusive homicidal thoughts toward family) and denies homicidal intent Homicidal thoughts are ego-dystonic, causing the patient significant distress Hallucinations: no auditory hallucinations and no visual hallucinations Cognition: attention grossly intact and language grossly intact Estimated Intelligence: consistent with education level Insight: + impaired insight Judgement: + impaired judgement Vital Signs (Past 24 Hours) Last Vital Signs Temp 36.4 C L 04/13/19 06:47 Pulse 94 H 04/13/19 06:48 Resp 16 04/13/19 06:47 BP 159/78 H 04/13/19 06:48 Pulse Ox 97 04/11/19 06:46 Results & Data Current Inpatient Medications Current Inpatient Medications: Current Inpatient Medications Acetaminophen (Tylenol) 650 mg PO Q4H PRN PRN Reason: Headache or Minor Fever Stop: 04/29/19 19:02 Last Admin: 04/13/19 04:30 Dose: 650 mg Documented by: Al Hydrox/Mg Hydrox/Simethicone (Maalox) 30 ml PO Q4H PRN PRN Reason: GI Upset Stop: 04/29/19 19:02 Bismuth Subsalicylate (Kaopectate) 15 ml PO PRN PRN PRN Reason: Loose Stool Stop: 04/29/19 19:02 Clonazepam (Klonopin) 0.5 mg PO TID PRN PRN Reason: anxiety Stop: 05/08/19 13:59 Clonidine HCl (Catapres) 0.1 mg PO Q4H PRN PRN Reason: Hypertension Stop: 05/11/19 09:16 Diphenhydramine HCl (Benadryl Capsule) 25 mg PO BID [facility] Stop: 05/12/19 20:59 Last Admin: 04/13/19 07:50 Dose: 25 mg Documented by: Hydroxyzine HCl (Vistaril) 25 mg PO Q4H PRN PRN Reason: Anxiety Stop: 04/29/19 19:02 Last Admin: 03/31/19 22:45 Dose: 25 mg Documented by: Lisinopril (Zestril) 15 mg PO BID [facility] Stop: 05/11/19 08:59 Last Admin: 04/13/19 07:50 Dose: 15 mg Documented by: Magnesium Hydroxide (Milk Of Magnesia) 30 ml PO DAILY PRN PRN Reason: Heartburn Stop: 04/29/19 19:02 Last Admin: 04/11/19 13:23 Dose: 30 ml Documented by: Mirtazapine (Remeron) 30 mg PO HS [facility] Stop: 05/05/19 21:59 Last Admin: 04/12/19 20:54 Dose: 30 mg Documented by: Olanzapine (Zyprexa) 10 mg PO QPM [facility] Stop: 04/30/19 20:59 Last Admin: 04/12/19 20:54 Dose: 10 mg Documented by: Olanzapine (Zyprexa) 2.5 mg PO BID PRN PRN Reason: agitation/anxiety Stop: 05/10/19 08:59 Last Admin: 04/10/19 08:45 Dose: 2.5 mg Documented by: Sertraline HCl (Zoloft) 100 mg PO QAM [facility] Stop: 05/09/19 08:59 Last Admin: 04/13/19 07:51 Dose: 100 mg Documented by: Sertraline HCl (Zoloft) 50 mg PO QAM [facility] Stop: 05/12/19 08:59 Last Admin: 04/13/19 07:51 Dose: 50 mg Documented by: Sodium Chloride (Ashley Nasal) 1 - 2 sprays NA PRN PRN PRN Reason: Nasal Dryness/Congestion Stop: 04/29/19 19:02 Mental Health & Subst Abuse Tx Psychiatrist Name of Psychiatrist: [facility] Carey Astudillo Psychiatrist's Date of Appointment with Psychiatrist: 04/20/19 Time of Appointment with Psychiatrist: 2:00 p.m. Psychiatric Appointment Comment: [address] [facility] [place] [address] Therapist Name of Therapist: [facility] Carey Petersen Therapist's Date of Therapist Appointment: 04/19/19 Time of Therapist Appointment: 1:30 p.m. Therapy Appointment Comment: [address] [facility] [address] Post Discharge Appointments Primary Care Physician Name Of Family Doctor: [facility] - Dr. Ayala [facility] Date of Appointment with PCP: 04/25/19 Time of Appointment with PCP: 10:30 a.m. Provider Appointment Comment: [address], [address], [place] [address] Contact Information Discharge Discharge Address: [address] [place] [id number] CPT Code CPT Code 08898
[2019-04-13] MEDS: clonazePAM 0.5 MG TAB PO PRN (11:08)
[2019-04-13] MEDS ORDERED: SERTRALINE HCL 50 MG TABLET PO ONE (13:00)
[2019-04-13] MEDS: OLANZapine 5 MG TABLET PO SCH (20:49)
[2019-04-13] MEDS: MIRTAZAPINE TAB 15 MG TAB PO SCH (20:49)
[2019-04-14] MEDS: LISINOPRIL 10 MG TAB PO SCH ×2 (07:44→21:06)
[2019-04-14] MEDS: clonazePAM 0.5 MG TAB PO PRN (07:45)
[2019-04-14] MEDS: SERTRALINE HCL 50 MG TABLET PO SCH (07:45)
[2019-04-14] MEDS: SERTRALINE HCL 100 MG TABLET PO SCH (07:45)
--- NOTE | 2019-04-14 09:02 | Psychiatric Progress Note ---
Date of Service April 14, 2019 Impression / Recommendations Impression 73-year-old female with a history of bipolar 1 and generalized anxiety disorder who was admitted voluntarily with severe, debilitating anxiety, depression, and inability to function. She had electrolyte abnormalities on presentation due to poor p.o. intake, was not sleeping, performing ADLs or getting out of bed at home. She has lost weight, and is cognitively impaired, and a limited historian. She has had multiple medication adjustments to target her anxiety and depressive symptoms. Her care is complex due to bipolar type I with history of freedom, trying to utilize medications to target anxiety while avoiding activation/freedom and akathisia. Ongoing medication adjustments are being pursued to target these concerns, as well as episodes of EPS. Patient has been more open about intrusive thoughts she has been experiencing for several months prior to her admission. She is extremely distressed by these homicidal thoughts towards her and family, and denies intent to act on them. We w ill continue medication adjustments to target these thoughts as well. Inpatient treatment is medically necessary and remains the least restrictive option until patient is better able to demonstrate an ability to function in the outpatient setting. Family meeting held today with patient's - this provider attended briefly to discuss medications. As patient is hesitant to trail a new medic ation, we discussed the possibility of titrating her dose of olanzapine to 5mg qAM and 10mg qHS to better target her rather intense intrusive thoughts, until sertraline reaches therapeutic levels. Pt was more agreeable to this plan than an alternative plan to retrial risperidone. Risks and benefits were reviewed and patient was agreeable to the adjustments mentioned above. (1) Bipolar 1 disorder: 03/31 -current episode depressed with severe anxiety. -Clarify home med list, as there are some discrepancies (external medication history shows that she filled #30 olanzapine 10 mg tablets and hydroxyzine 25 mg tablets on 03/18/2019, but admission medication reconciliation indicates olanzapine 15 mg every afternoon and hydralazine 25 mg every afternoon). Nursing staff to call her and clarify this: Patient is not prescribed hydralazine, will remove medication. She did receive a dose last night, and blood pressure this morning was elevated 163/89, but on repeat 124/71. -Increase sertraline to 100 mg daily to target mood and anxiety, and watch for activation/mood stabilization. -It is unclear if her home dose of olanzapine is 10 or 15 mg; she received 15 mg last night, and I am concerned for EPS given her cogwheeling on exam and severe restlessness. Order benztropine 0.5 mg as needed, and reduce olanzapine to 10 milligrams at bedtime. Per she was only on 10mg olanzapine at home. May need to reduce dose further or switch to another antipsychotic if EPS does not improve. -Fasting lipid profile and glucose performed on 09/30/2018 for monitoring on an atypical antipsychotic, and were within normal limits. 04/01 -Contributing to the patient's severe anxiety may be akathisia associated with olanzapine and, possibly, sertraline. I have advised the patient accordingly, and she accepts my recommendation for a standing dose of Artane (trihexyphenidyl) -Patient otherwise indicates that she feels that she has been tolerating olanzapine well, and reports that she feels this medication has been helpful to her. -The patient's dose of sertraline has been increased to 100 mg daily 04/02 -Patient more unsteady today. Will hold any further doses of diphenhydramine for now. She does not have any cogwheeling; once she is able to relax the paratonia disappears -Patient now on moderate dose of SSRI. Reviewed she had been manic at last presentation. Considering Remeron trial which may help with restlessness and anxiety and allow for reduction of some of the anticholinergic medication she has been started on however patient appeared overwhelmed when attempting to discuss today and will defer for reconsideration tomorrow -patient refused physical therapy referral for imbalance today 04/04 - Continue current medication regimen, consider titration of mirtazapine with observation for activation 04/05 - Titrating mirtazapine to 30mg this evening - continue to monitor for possible activation and triggering of manic symptoms - Once efficacy is apparent, consider tapering sertraline to achieve antidepressant monotherapy - Continue remainder of medication regimen unchanged 04/06 - Patient reports mood and restlessness are slightly improved. - Worsening tachycardia with heart rate as high as 130, with worsening after Artane was started. As this medication can cause tachycardia, will decrease it to 1 mg twice daily. 04/07 -Tachycardia has resolved with lowered Artane dose. Restlessness is improved. 04/08 -While the patient's restlessness has improved, today, she continues to complain of restlessness and, on testing, demonstrates persistent cogwheeling. Currently, we will offer the patient a trial of diphenhydramine 12.5 mg twice a day. The target of diphenhydramine in this case is the patient's EPS, but we are also hopeful that it will aid in managing the patient's anxiety. -The patient is complaining of persistent anxiety and intrusive, ego dystonic thoughts that she tells me she is embarrassed to discuss. I offered the patient reassurances in this regard. -The patient reports that she is not having suicidal thoughts. 04/09 - 04/10 - Continue current medication regimen, reportedly demonstrating improvement 04/11 - Titrating sertraline to 150mg daily, continue remainder of current medication regimen 04/12 - Continue plan as above 04/13 - Titrating sertraline to 175mg daily, continue remainder of medication regimen for now - Pt reporting significant distress from intrusive thoughts - consider alternative options to reduce distress. Did not tolerate 15 mg dose of olanzapine due to EPS, but could consider split dosing 5 mg / 10 mg. Could also consider retrial of risperidone, or alternative agents. 04/14 - Reviewed medication options above with the patient, who does not desire to change atypical antipsychotic medications at this time. She was agreeable to titrating the dose to 5mg qAM and 10mg qHS. - Continue to monitor for EPS as dose is titrated (2) Generalized anxiety disorder: 03/31 -patient extremely anxious, with negative, ruminative thoughts, and severe restlessness. -Increase sertraline as above. -At home dose of hydroxyzine 25 mg at bedtime, and offer 25 mg every 4 hours as needed anxiety. -Continue clonazepam 0.5 mg every morning, and add 0.5 mg dose twice daily as needed if hydroxyzine an effective, but monitor for unsteadiness and oversedation. 04/01/19 -As noted above, some of the patient's anxious distress may be secondary to eps side effects (akathisia). -On examination, the patient does have cogwheel rigidity. However, she tells me that she feels that she is somewhat less anxious and notes that the medications for her anxiety "may be helping." 04/02 -Patient remains highly anxious. Considered alternative options for bedtime hydroxyzine to reduce anticholinergic burden. Elected to trial the Remeron at 15 mg p.o. nightly which may help off label for feelings of restlessness. Hopefully this will also help to reduce her anxiety and provide some appetite stimulation but will need to watch for mood cycling in combination with the sertraline. If she does well with this agent, could consider using it as antidepressant monotherapy (tapering her off the Zoloft) 04/04 - Continue current medication regimen - consider increase or mirtazapine and possible taper of sertraline as outlined above; wanting to ensure tolerance prior to switching to mirtazapine as monotherapy 04/05 - Titrating mirtazapine to 30mg this evening; will continue sertraline at 100mg until efficacy of mirtazapine can be determined - Continue remainder of medication regimen unchanged 04/08 -As above, we are increasing her dose of sertraline to a dose of 125 mg daily to treat anxiety and depression. We will continue olanzapine to serve as a mood stabilizer given the patient's diagnosis of bipolar disorder. -Also as noted above, we have added diphenhydramine 12.5 mg twice a day for extraparametal side effects, persistent) EPS, and we will discontinue Artane. Hopefully, diphenhydramine will help not only with extraparametal side effects but, also, with the patient's generalized anxiety. -The patient's standing dose of clonazepam has been increased from 0.5 mg in the morning to 0.5 mg 3 times a day. She will also have available to her as needed clonazepam. Material risks and anticipated benefits of clonazepam have been reviewed with the patient, and it has been explained that this is not expected to be a long-term intervention but, instead, is being used to help bring the patient's anxiety under better control so that she can more fruitful he participate in the treatment on the. 04/09 - Continue current medication regimen; consider need for further titration of sertraline to 150mg daily - Patient appearing less restless/anxious, though she describes her symptoms to be unchanged 04/10 - Continue current medication regimen; consider titration of sertraline as above - pt limited in willingness to discuss multiple changes today - Patient's appearance is improving, though she reports limited changes in her condition 04/11 - Titrate sertraline to 150mg daily. Pt reporting daytime sedation, can consider possible reduction of prns at some point, when she begins to be more effective - Pt reporting mild improvements in anxiety 04/12 - Continue sertraline 150mg daily - In attempt to reduce sedation, but maintain progress with reducing anxiety/restlessness - will titrate diphenhydramine to 25mg daily (this will also allow for medication in capsule form, which patient prefers). Will discontinue scheduled TID clonazepam, but leave available prn dosing should patient require it during the day for anxiety or other concerns. - Staff also reporting apneic episodes observed at night; reducing reliance on benzodiazepines will be ideal as will reduce additional risk for respiratory concerns - Continue to encourage development of healthy and effective coping strategies 04/13 - Titrating sertraline to 175mg daily - Continue remainder of medication regimen as above - Pt has been more open about intrusive homicidal thoughts, distressing, with no intent to act. Pt is very disturbed by these thoughts - Patient unwilling for additional medication adjustments today; however, could consider titration of olanzapine. Patient did experience significant EPS when she received a 15 mg dose early in her admission. Consider split dosing - 5mg/10mg - Also consider retrial for risperidone (beneficial on last admission), possibly as prn and then scheduled in place of olanzapine if effective. Can also consider trial of another atypical antipsychotic which may better target concerns. 04/14 - Continue medication adjustments as above - olanzapine 5mg qAM and 10mg qHS (3) Hyponatremia: 03/31 -sodium 129 on initial presentation, improved to 130 after 1 liter NS in the ER. Encourage good p.o. intake, and recheck BMP tomorrow. 04/01 -current sodium level is within normal limits. 04/03 - Remeron low risk for hyponatremia 04/04 - BMP reviewed with patient today; hyponatremia now normalized at 137 - Reporting improved nutritional intake (4) Hypertension: 03/31 -continue lisinopril 10 mg daily. Monitor BP. 04/02 -BP again asymptomatically elevated this morning. We will increase lisinopril to 15 mg daily 04/03 -Tolerated increased dose of lisinopril adequately. Blood pressures remain elevated in a.m.'s. 04/05 - BP's remain elevated in the AMs. Event rechecks after medication administration have been mildly elevated. Will trial lisinopril 20mg tomorrow. - Continue to monitor 04/06 -Blood pressure has normalized, but remains tachycardic. Heart rate as high as 130 today. Will decrease Artane as above his heart rate is increased since it was started and it can cause tachycardia. 04/09 - Blood pressure remains elevated in the AM, improved in the afternoons - patient unwilling today to discuss titration of lisinopril - Review again tomorrow, consider HS dose of lisinopril if there is little improvement 04/10 - Ordered 10mg dose of lisinopril for this evening - with then begin 15mg BID dosing - If no improvement, consider discussing with hospitalist for further recommendations as she has not demonstrated strong response to changes thus far 04/11 - BP elevated again this morning - 179/108. Improved to 112/75 after receiving AM medications - Ordered clonidine 0.1mg q4h prn for systolic above 180 and/or diastolic above 100 - Will plan for vitals to be checked throughout the day 04/12 - Pt tolerating BID dosing of lisinopril - AM BP was elevated, but not as significantly as previous days; afternoon readings show improvement - Will continue to check vitals throughout the day to ensure consistency 04/13 - Continued improvement noted in patient's blood pressure readings - Continue lisinopril 15mg BID (5) Hypokalemia: 04/01 -The patient's potassium level has remained 3.1 for 2 days now, within the context of poor oral intake. -Encourage oral intake. -Potassium chloride supplement 20 mEq daily x 6. 04/02 -Repeat BMP ordered for Thursday for sodium and potassium monitoring. 04/04 - Reviewed BMP with patient, hypokalemia now normalized - 3.9 - Continue to encourage adequate oral intake - Pt requesting trial of potassium supplement in tablet form Risk Factors Assessment Male: No : Yes Do You Have Access To A Gun?: Yes ( has guns that are locked) Health Problems: Yes Mental Health Diagnoses: Yes Substance Use Disorders: No Previous Attempt: No Family History of Suicide: No Previous Psychiatric Hospitalization: Yes Hopelessness: Yes Smoker: No Protective Factors Assessment : Yes Responsible for Young Children: No Employed: No Supportive Family: Yes Good Rapport with Provider: Yes Interval History Identifying Information VALENTINA CLARK is a 73-year-old F who currently lives in [place] with her , has a history of bipolar disorder type I and generalized anxiety disorder, and was admitted on 03/30/19 19:35 on a 201 voluntary commitment for severe anxiety and inability to function. Chief Complaint "Oh, so-so." Review of Systems Notes Constitutional: reports improvement in restlessness, but ongoing racing thoughts Cardiovascular: denied Respiratory: denied Gastrointestinal: denied Neurological: denied Psychiatric: denies symptoms other than stated above Total of at least 10 systems reviewed, pertinent positives as above and in HPI. Sleep Information Total Hours of Sleep: 7.75 Sleep Comments: pt. remains with obstructed breathing with 25 sec. episodes of no audicle sounds then an obsructed loud inhalation in a repeating pattern through the night. Meal Information Percent Meal Consumed - Breakfast: 100 Percent Meal Consumed - Lunch: 100 Percent Meal Consumed - Dinner: 75 Nutrition Comment: Bites Subjective Subjective Patient was seen & assessed and interval progress reviewed with nursing and social work. Staff reports the patient admits to ongoing intrusive thoughts. She is scheduled for a meeting with her at 1100 this morning to discuss her progress and gather collateral information regarding her history of symptoms. Pt was seen today during that meeting, as this provider was asked to join to review medication adjustments. She was also seen later in the afternoon to follow-up on these conversations. Pt states that she is not noticing much of a difference in her anxiety or the severity of her racing thoughts. Her provides some information regarding medication history. He states that he and the patient have been somewhat concerned about her history with clonazepam, as they are aware of its abuse potential. Patient's states that the pa matt's condition began to deteriorate after the 17 of February. We reviewed the patient's intrusive thoughts, and patient's gave input politely requesting thoughts on patient's diagnosis of bipolar disorder, as he states, "she's only been what you guys call manic one time back in August." He questioned if she needed to be on "the medications for bipolar disorder." This provider offered education on patient's medication regimen, and explained that the medication being used for possible bipolar disorder, is also the medication that is likely to be helpful for her intrusive thoughts in the acute phase. See allied health note regarding patient's family meeting for additional information. This provider followed up with the patient after her meeting to discuss medications. Pt was offered re-trial of risperidone, and she rather confidently stated she was concerned about her frequent medication changes. This provider acknowledged this concern, but also expressed that without further adjustments, there is not likely to be a change in the patient's overall condition. This provider offered alternative concern, that she would remain on multiple ineffective medications. After review of options, patient was in favor of titration of olanzapine to 5mg qAM and 10mg qHS. We reviewed risks and benefits, and patient verbalized understanding. Pt denies SI, but admits to ongoing intrusive thoughts - mildly improved at time of our second encounter. Pt denies other needs or concerns at this time. Physical Exam Psychiatric Orientation: alert, oriented x 3 and cooperative (superficially) Apperance: appropriately dressed and appeared stated age; + inappropriately court omed (hair greasy, hygiene limited this admission) Eye Contact: + fair eye contact Motor Behavior: no abnormal motor movements (observed while seated for both encounters) Speech: normal rate/rhythm/volume of speech (minimally spontaneous, brief answers to questions) Affect: + anxious affect and + blunted affect Mood: + anxious mood Thought Process: clear/coherent thought process and + concrete thought process Thought Content: + preoccupation (with intrusive thoughts), + cognitive distortions (feeling she is undeserving of nice things or decent treatment), + hopelessness and + guilt Ongoing intrusive thoughts to harm her and family Suicidal Thoughts: denies suicidal thoughts and denies suicidal intent Homicidal Thoughts: denies homicidal thoughts Intrusive thoughts are homicidal in nature, but are ego-dystonic without intent to act Hallucinations: no auditory hallucinations and no visual hallucinations Cognition: attention grossly intact and language grossly intact Estimated Intelligence: consistent with education level Insight: + impaired insight Judgement: + impaired judgement Vital Signs (Past 24 Hours) Last Vital Signs Temp 36.4 C L 04/14/19 06:00 Pulse 108 H 04/14/19 06:39 Resp 16 04/13/19 06:47 BP 176/98 H 04/14/19 06:39 Pulse Ox 97 04/11/19 06:46 Results & Data Current Inpatient Medications Current Inpatient Medications: Current Inpatient Medications Acetaminophen (Tylenol) 650 mg PO Q4H PRN PRN Reason: Headache or Minor Fever Stop: 04/29/19 19:02 Last Admin: 04/13/19 04:30 Dose: 650 mg Documented by: Al Hydrox/Mg Hydrox/Simethicone (Maalox) 30 ml PO Q4H PRN PRN Reason: GI Upset Stop: 04/29/19 19:02 Bismuth Subsalicylate (Kaopectate) 15 ml PO PRN PRN PRN Reason: Loose Stool Stop: 04/29/19 19:02 Clonazepam (Klonopin) 0.5 mg PO TID PRN PRN Reason: anxiety Stop: 05/08/19 13:59 Last Admin: 04/14/19 07:45 Dose: 0.5 mg Documented by: Clonidine HCl (Catapres) 0.1 mg PO Q4H PRN PRN Reason: Hypertension Stop: 05/11/19 09:16 Diphenhydramine HCl (Benadryl Capsule) 25 mg PO BID PILI Stop: 05/12/19 20:59 Last Admin: 04/14/19 07:44 Dose: 25 mg Documented by: Hydroxyzine HCl (Vistaril) 25 mg PO Q4H PRN PRN Reason: Anxiety Stop: 04/29/19 19:02 Last Admin: 03/31/19 22:45 Dose: 25 mg Documented by: Lisinopril (Zestril) 15 mg PO BID PILI Stop: 05/11/19 08:59 Last Admin: 04/14/19 07:44 Dose: 15 mg Documented by: Magnesium Hydroxide (Milk Of Magnesia) 30 ml PO DAILY PRN PRN Reason: Heartburn Stop: 04/29/19 19:02 Last Admin: 04/11/19 13:23 Dose: 30 ml Documented by: Mirtazapine (Remeron) 30 mg PO HS PILI Stop: 05/05/19 21:59 Last Admin: 04/13/19 20:49 Dose: 30 mg Documented by: Olanzapine (Zyprexa) 10 mg PO QPM PILI Stop: 04/30/19 20:59 Last Admin: 04/13/19 20:49 Dose: 10 mg Documented by: Olanzapine (Zyprexa) 2.5 mg PO BID PRN PRN Reason: agitation/anxiety Stop: 05/10/19 08:59 Last Admin: 04/10/19 08:45 Dose: 2.5 mg Documented by: Sertraline HCl (Zoloft) 100 mg PO QAM PILI Stop: 05/09/19 08:59 Last Admin: 04/14/19 07:45 Dose: 100 mg Documented by: Sertraline HCl (Zoloft) 75 mg PO QAM PILI Stop: 05/14/19 08:59 Last Admin: 04/14/19 07:45 Dose: 75 mg Documented by: Sodium Chloride ([place] Nasal) 1 - 2 sprays NA PRN PRN PRN Reason: Nasal Dryness/Congestion Stop: 04/29/19 19:02 Mental Health & Subst Abuse Tx Psychiatrist Name of Psychiatrist: BENJAMIN Carey Astudillo Psychiatrist's Date of Appointment with Psychiatrist: 04/20/19 Time of Appointment with Psychiatrist: 2:00 p.m. Psychiatric Appointment Comment: [address] [place] [address] Therapist Name of Therapist: DEYSI Petersen Therapist's Date of Therapist Appointment: 04/19/19 Time of Therapist Appointment: 1:30 p.m. Therapy Appointment Comment: [address] [place] [place] [address] Post Discharge Appointments Primary Care Physician Name Of Family Doctor: [facility] - Dr. Ay[facility] Date of Appointment with PCP: 04/25/19 Time of Appointment with PCP: 10:30 a.m. Provider Appointment Comment: [address], [address], [place] [address] Contact Information Discharge Discharge Address: [address] [place], [place] [id number] CPT Code CPT Code 42439
[2019-04-14] MEDS: OLANZapine 5 MG TABLET PO SCH (21:07)
[2019-04-14] MEDS: MIRTAZAPINE TAB 15 MG TAB PO SCH (21:07)
[2019-04-15] MEDS: LISINOPRIL 10 MG TAB PO SCH ×2 (07:35→21:04)
[2019-04-15] MEDS: clonazePAM 0.5 MG TAB PO PRN ×2 (07:35→12:31)
[2019-04-15] MEDS: SERTRALINE HCL 100 MG TABLET PO SCH (07:36)
[2019-04-15] MEDS: OLANZapine 5 MG TABLET PO SCH ×2 (07:37→21:04)
[2019-04-15] MEDS: SERTRALINE HCL 50 MG TABLET PO SCH (07:37)
[2019-04-15] MEDS ORDERED: clonazePAM 0.5 MG TAB PO STA (15:32)
--- NOTE | 2019-04-15 16:07 | Psychiatric Progress Note ---
Date of Service April 15, 2019 Impression / Recommendations Impression 73-year-old female with a history of bipolar 1 and generalized anxiety disorder who was admitted voluntarily with severe, debilitating anxiety, depression, and inability to function. She had electrolyte abnormalities on presentation due to poor p.o. intake, was not sleeping, performing ADLs or getting out of bed at home. She has lost weight, and is cognitively impaired, and a limited historian. She has had multiple medication adjustments to target her anxiety and depressive symptoms. Her care is complex due to bipolar type I with history of freedom, trying to utilize medications to target anxiety while avoiding activation/freedom and akathisia. Ongoing medication adjustments are being pursued to target these concerns, as well as episodes of EPS. Patient has been more open about intrusive thoughts she has been experiencing for several months prior to her admission. She is extremely distressed by these homicidal thoughts towards her and family, and denies intent to act on them. We w ill continue medication adjustments to target these thoughts as well. Inpatient treatment is medically necessary and remains the least restrictive option until patient is better able to demonstrate an ability to function in the outpatient setting. Today, the fact patient is heavily focused on her ego dystonic intrusive thoughts. I told her that many people suffer from the same affliction and ev domitila who has them is similarly horrified until they understand that these are not sages of future behaviors and there is no risk of her ever acting on them. I described him as "secret thoughts that would shame hell," and the patient smiled and said, yes, exactly!" We talked about shame, and I provided her with information regarding the nature of these thoughts and that they are not evidence of a bad character or of anything other than the obsessive thoughts that are tend to be tenacious and distressing. Today, we will begin clonazepam 0.5 mg 3 times daily as needed for anxiety. She is currently at 175 mg of sertraline, and I believe that it would be appropriate to hold at this dose. We had discussed discontinuing olanzapine in favor of risperidone, given the documented past history of favorable response to risperidone and uncertainty regarding why risperidone had been discontinued and olanzapine initiated. The patient insists that she had been fully adherent with risperidone, but it had not worked even at escalating dosages and that was why she was changed to olanzapine. She notes that she does feel that olanzapine has been helpful in terms of stabilizing her mood. Her current complaint, however, has more to do with her distress regarding these alien, intrusive ego-dystonic thoughts. (1) Bipolar 1 disorder: 03/31 -current episode depressed with severe anxiety. -Clarify home med list, as there are some discrepancies (external medication history shows that she filled #30 olanzapine 10 mg tablets and hydroxyzine 25 mg tablets on 03/18/2019, but admission medication reconciliation indicates olanzapine 15 mg every afternoon and hydralazine 25 mg every afternoon). Nursing staff to call her and clarify this: Patient is not prescribed hydralazine, will remove medication. She did receive a dose last night, and blood pressure this morning was elevated 163/89, but on repeat 124/71. -Increase sertraline to 100 mg daily to target mood and anxiety, and watch for activation/mood stabilization. -It is unclear if her home dose of olanzapine is 10 or 15 mg; she received 15 mg last night, and I am concerned for EPS given her cogwheeling on exam and severe restlessness. Order benztropine 0.5 mg as needed, and reduce olanzapine to 10 milligrams at bedtime. Per she was only on 10mg olanzapine at home. May need to reduce dose further or switch to another antipsychotic if EPS does not improve. -Fasting lipid profile and glucose performed on 09/30/2018 for monitoring on an atypical antipsychotic, and were within normal limits. 04/01 -Contributing to the patient's severe anxiety may be akathisia associated with olanzapine and, possibly, sertraline. I have advised the patient accordingly, and she accepts my recommendation for a standing dose of Artane (trihexyphenidyl) -Patient otherwise indicates that she feels that she has been tolerating olanzapine well, and reports that she feels this medication has been helpful to her. -The patient's dose of sertraline has been increased to 100 mg daily 04/02 -Patient more unsteady today. Will hold any further doses of diphenhydramine for now. She does not have any cogwheeling; once she is able to relax the paratonia disappears -Patient now on moderate dose of SSRI. Reviewed she had been manic at last presentation. Considering Remeron trial which may help with restlessness and anxiety and allow for reduction of some of the anticholinergic medication she has been started on however patient appeared overwhelmed when attempting to discuss today and will defer for reconsideration tomorrow -patient refused physical therapy referral for imbalance today 04/04 - Continue current medication regimen, consider titration of mirtazapine with observation for activation 04/05 - Titrating mirtazapine to 30mg this evening - continue to monitor for possible activation and triggering of manic symptoms - Once efficacy is apparent, consider tapering sertraline to achieve antidepressant monotherapy - Continue remainder of medication regimen unchanged 04/06 - Patient reports mood and restlessness are slightly improved. - Worsening tachycardia with heart rate as high as 130, with worsening after Artane was started. As this medication can cause tachycardia, will decrease it to 1 mg twice daily. 04/07 -Tachycardia has resolved with lowered Artane dose. Restlessness is improved. 04/08 -While the patient's restlessness has improved, today, she continues to complain of restlessness and, on testing, demonstrates persistent cogwheeling. Currently, we will offer the patient a trial of diphenhydramine 12.5 mg twice a day. The target of diphenhydramine in this case is the patient's EPS, but we are also hopeful that it will aid in managing the patient's anxiety. -The patient is complaining of persistent anxiety and intrusive, ego dystonic thoughts that she tells me she is embarrassed to discuss. I offered the patient reassurances in this regard. -The patient reports that she is not having suicidal thoughts. 04/09 - 04/10 - Continue current medication regimen, reportedly demonstrating improvement 04/11 - Titrating sertraline to 150mg daily, continue remainder of current medication regimen 04/12 - Continue plan as above 04/13 - Titrating sertraline to 175mg daily, continue remainder of medication regimen for now - Pt reporting significant distress from intrusive thoughts - consider alternative options to reduce distress. Did not tolerate 15 mg dose of olanzapine due to EPS, but could consider split dosing 5 mg / 10 mg. Could also consider retrial of risperidone, or alternative agents. 04/14 - Reviewed medication options above with the patient, who does not desire to change atypical antipsychotic medications at this time. She was agreeable to titrating the dose to 5mg qAM and 10mg qHS. - Continue to monitor for EPS as dose is titrated 04/15 -I again spoke with the patient about possibly changing her antipsychotic, mood stabilizing medication from olanzapine to risperidone. The patient says that she feels fairly strongly that she would prefer to remain on olanzapine because she feels that it does help stabilize her mood. -While the patient does endorse feelings of depression, she tells us that the depression seems to be following her anxiety and distress regarding a series of alien, intrusive ego dystonic thoughts that she has great difficulty dismissing. (2) Generalized anxiety disorder: 03/31 -patient extremely anxious, with negative, ruminative thoughts, and severe restlessness. -Increase sertraline as above. -At home dose of hydroxyzine 25 mg at bedtime, and offer 25 mg every 4 hours as needed anxiety. -Continue clonazepam 0.5 mg every morning, and add 0.5 mg dose twice daily as needed if hydroxyzine an effective, but monitor for unsteadiness and oversedation. 04/01/19 -As noted above, some of the patient's anxious distress may be secondary to eps side effects (akathisia). -On examination, the patient does have cogwheel rigidity. However, she tells me that she feels that she is somewhat less anxious and notes that the medi cations for her anxiety "may be helping." 04/02 -Patient remains highly anxious. Considered alternative options for bedtime hydroxyzine to reduce anticholinergic burden. Elected to trial the Remeron at 15 mg p.o. nightly which may help off label for feelings of restlessness. Hopefully this will also help to reduce her anxiety and provide some appetite stimulation but will need to watch for mood cycling in combination with the sertraline. If she does well with this agent, could consider using it as antidepressant monotherapy (tapering her off the Zoloft) 04/04 - Continue current medication regimen - consider increase or mirtazapine and possible taper of sertraline as outlined above; wanting to ensure tolerance prior to switching to mirtazapine as monotherapy 04/05 - Titrating mirtazapine to 30mg this evening; will continue sertraline at 100mg until efficacy of mirtazapine can be determined - Continue remainder of medication regimen unchanged 04/08 -As above, we are increasing her dose of sertraline to a dose of 125 mg daily to treat anxiety and depression. We will continue olanzapine to serve as a mood stabilizer given the patient's diagnosis of bipolar disorder. -Also as noted above, we have added diphenhydramine 12.5 mg twice a day for extraparametal side effects, persistent) EPS, and we will discontinue Artane. Hopefully, diphenhydramine will help not only with extraparametal side effects but, also, with the patient's generalized anxiety. -The patient's standing dose of clonazepam has been increased from 0.5 mg in the morning to 0.5 mg 3 times a day. She will also have available to her as needed clonazepam. Material risks and anticipated benefits of clonazepam have been reviewed with the patient, and it has been explained that this is not expected to be a long-term intervention but, instead, is being used to help bring the patient's anxiety under better control so that she can more fruitful he participate in the treatment on the. 04/09 - Continue current medication regimen; consider need for further titration of sertraline to 150mg daily - Patient appearing less restless/anxious, though she describes her symptoms to be unchanged 04/10 - Continue current medication regimen; consider titration of sertraline as above - pt limited in willingness to discuss multiple changes today - Patient's appearance is improving, though she reports limited changes in her condition 04/11 - Titrate sertraline to 150mg daily. Pt reporting daytime sedation, can consider possible reduction of prns at some point, when she begins to be more effective - Pt reporting mild improvements in anxiety 04/12 - Continue sertraline 150mg daily - In attempt to reduce sedation, but maintain progress with reducing anxiety/restlessness - will titrate diphenhydramine to 25mg daily (this will also allow for medication in capsule form, which patient prefers). Will discontinue scheduled TID clonazepam, but leave available prn dosing should patient require it during the day for anxiety or other concerns. - Staff also reporting apneic episodes observed at night; reducing reliance on benzodiazepines will be ideal as will reduce additional risk for respiratory concerns - Continue to encourage development of healthy and effective coping strategies 04/13 - Titrating sertraline to 175mg daily - Continue remainder of medication regimen as above - Pt has been more open about intrusive homicidal thoughts, distressing, with no intent to act. Pt is very disturbed by these thoughts - Patient unwilling for additional medication adjustments today; however, could consider titration of olanzapine. Patient did experience significant EPS when she received a 15 mg dose early in her admission. Consider split dosing - 5mg/10mg - Also consider retrial for risperidone (beneficial on last admission), possibly as prn and then scheduled in place of olanzapine if effective. Can also consider trial of another atypical antipsychotic which may better target concerns. 04/14 - Continue medication adjustments as above - olanzapine 5mg qAM and 10mg qHS 04/15 -The patient's anxiety symptoms seem to be a combination of anxious distress associated with ego-dystonic intrusive thoughts, as well as restlessness associated with extraparametal side effects from her medications. -She has tolerated an increase in her dose of diphenhydramine from 12.5 mg to 25 mg without excess sedation, and she tells us that she much prefers this because she did not like the taste of liquid diphenhydramine. -We are beginning clonazepam 0.5 mg up to 3 times a day as needed for anxiety. The patient has a past history of favorable response to this medication. Material risks, including, but not limited to excess sedation, increased risk of accident, increased risk for falls, physical habituation with complicated withdrawal that may may be fatal and can include seizures, and cognitive impairment. The patient indicates understanding and notes that she has had no problems taking the clonazepam in the past. (3) Hyponatremia: 03/31 -sodium 129 on initial presentation, improved to 130 after 1 liter NS in the ER. Encourage good p.o. intake, and recheck BMP tomorrow. 04/01 -current sodium level is within normal limits. 04/03 - Remeron low risk for hyponatremia 04/04 - BMP reviewed with patient today; hyponatremia now normalized at 137 - Reporting improved nutritional intake (4) Hypertension: 03/31 -continue lisinopril 10 mg daily. Monitor BP. 04/02 -BP again asymptomatically elevated this morning. We will increase lisinopril to 15 mg daily 04/03 -Tolerated increased dose of lisinopril adequately. Blood pressures remain elevated in a.m.'s. 04/05 - BP's remain elevated in the AMs. Event rechecks after medication administration have been mildly elevated. Will trial lisinopril 20mg tomorrow. - Continue to monitor 04/06 -Blood pressure has normalized, but remains tachycardic. Heart rate as high as 130 today. Will decrease Artane as above his heart rate is increased since it was started and it can cause tachycardia. 04/09 - Blood pressure remains elevated in the AM, improved in the afternoons - patient unwilling today to discuss titration of lisinopril - Review again tomorrow, consider HS dose of lisinopril if there is little improvement 04/10 - Ordered 10mg dose of lisinopril for this evening - with then begin 15mg BID dosing - If no improvement, consider discussing with hospitalist for further recommendations as she has not demonstrated strong response to changes thus far 04/11 - BP elevated again this morning - 179/108. Improved to 112/75 after receiving AM medications - Ordered clonidine 0.1mg q4h prn for systolic above 180 and/or diastolic above 100 - Will plan for vitals to be checked throughout the day 04/12 - Pt tolerating BID dosing of lisinopril - AM BP was elevated, but not as significantly as previous days; afternoon re adings show improvement - Will continue to check vitals throughout the day to ensure consistency 04/13 - Continued improvement noted in patient's blood pressure readings - Continue lisinopril 15mg BID (5) Hypokalemia: 04/01 -The patient's potassium level has remained 3.1 for 2 days now, within the context of poor oral intake. -Encourage oral intake. -Potassium chloride supplement 20 mEq daily x 6. 04/02 -Repeat BMP ordered for Thursday for sodium and potassium monitoring. 04/04 - Reviewed BMP with patient, hypokalemia now normalized - 3.9 - Continue to encourage adequate oral intake - Pt requesting trial of potassium supplement in tablet form 04/15 -We are considering this problem to be resolved. Risk Factors Assessment Male: No : Yes Do You Have Access To A Gun?: Yes ( has guns that are locked) Health Problems: Yes Mental Health Diagnoses: Yes Substance Use Disorders: No Previous Attempt: No Family History of Suicide: No Previous Psychiatric Hospitalization: Yes Hopelessness: Yes Smoker: No Protective Factors Assessment : Yes Responsible for Young Children: No Employed: No Supportive Family: Yes Good Rapport with Provider: Yes Interval History Identifying Information VALENTINA CLARK is a 73-year-old F who currently lives in [place] with her , has a history of bipolar disorder type I and generalized anxiety disorder, and was admitted on 03/30/19 19:35 on a 201 voluntary commitment for severe anxiety and inability to function. Chief Complaint "I have got these awful thoughts". Review of Systems Sleep Information Total Hours of Sleep: 8 Sleep Comments: pt. remains with obstructed breathing with 25 sec. episodes of no audicle sounds then an obsructed loud inhalation in a repeating pattern through the night. Meal Information Percent Meal Consumed - Breakfast: 100 Percent Meal Consumed - Lunch: 25 Percent Meal Consumed - Dinner: 100 Nutrition Comment: Bites Subjective Subjective Patient was seen & assessed and interval progress reviewed with treatment team. I met individually with the patient in order to assess her current mental status, evaluate her response to treatment, address issues and concerns that may arise, and make any necessary changes in the patient's treatment regimen and coordination with the patient. The patient tells me that she thinks that she may be starting to feel "may be a little bit better," and that she has been less anxious. However, she tells me that she is continuing to have "horrible" intrusive thoughts that she finds to be extremely distressing. Although she told me that she would prefer not to disclose the content of these thoughts directly to me, she has disclosed some of the thoughts to nursing staff. They include violent thoughts of dismembering and devouring her , violent sexual thoughts, and, most recently, thoughts of engaging in forms of sexual activity that are ego dystonic to her. We were able to talk at some length about ego dystonic intrusive thoughts, the nature of the thoughts, the fact that these are commonly experienced by many people, and the fact that they do not represent a genuine risk of resulting in actual execution of the thoughts. We also discussed the patient's shame and I validated the fact that these thoughts for everyone who experiences them are very distressing because they are so contrary to anything that the person would ever do or want to do. The patient did smile, and told me that she found this information to be helpful. We also discussed a commonly used technique to manage alien, intrusive or "ego dystonic" thoughts. This technique involves treating the thoughts as if they were a "wasp" that had flown into the room. The technique is to acknowledge that the wasp is there, save yourself, "there is that wasp again," avoid swatting at it, trying to she would out of the room, or doing anything else in an effort to get it to leave. Instead,, and then let go of it and move on. Further, we discussed the patient's ongoing anxiety. We had discussed in the treatment team the possibility of discontinuing olanzapine in favor of risperidone, given her past history of favorable response to risperidone. However, the patient tells me that she feels that olanzapine is helping her and, she notes that while ris peridone did help her in the past she felt that it had stopped working and at higher dosages were not effective. Therefore, she would prefer to remain on olanzapine. We also discussed using as needed clonazepam for anxiety, and the patient told me that she would be interested in trying this again because it had been helpful to her in the past. Physical Exam Psychiatric Orientation: alert and oriented x 3 Apperance: appropriately dressed and appropriately groomed Eye Contact: + fair eye contact Motor Behavior: steady gait and station; n akathisia Speech: normal rate/rhythm/volume of speech Affect: + anxious affect The patient's affect does seem more calm and somewhat brighter. However, she remains anxious and depressed. She does smile appropriately several times during the encounter and is willing to joke a bit with the examiner. Mood: + depressed mood and + anxious mood Thought Process: goal directed thought process and + perseveration Thought Content: + obsessions and reality based without delusions Suicidal Thoughts: denies suicidal thoughts Homicidal Thoughts: denies homicidal thoughts Hallucinations: no auditory hallucinations Cognition: recent memory grossly intact, remote memory grossly intact, attention grossly intact and language grossly intact Estimated Intelligence: + above average estimated intelligence Insight: + limited insight Judgement: + fair judgement Vital Signs (Past 24 Hours) Last Vital Signs Temp 36.8 C 04/15/19 06:00 Pulse 104 H 04/15/19 14:28 Resp 16 04/15/19 14:28 BP 99/63 L 04/15/19 14:28 Pulse Ox 97 04/11/19 06:46 Results & Data Current Inpatient Medications Current Inpatient Medications: Current Inpatient Medications Acetaminophen (Tylenol) 650 mg PO Q4H PRN PRN Reason: Headache or Minor Fever Stop: 04/29/19 19:02 Last Admin: 04/13/19 04:30 Dose: 650 mg Documented by: Al Hydrox/Mg Hydrox/Simethicone (Maalox) 30 ml PO Q4H PRN PRN Reason: GI Upset Stop: 04/29/19 19:02 Bismuth Subsalicylate (Kaopectate) 15 ml PO PRN PRN PRN Reason: Loose Stool Stop: 04/29/19 19:02 Clonazepam (Klonopin) 0.5 mg PO TID PRN PRN Reason: Anxiety Stop: 05/15/19 15:26 Clonidine HCl (Catapres) 0.1 mg PO Q4H PRN PRN Reason: Hypertension Stop: 05/11/19 09:16 Last Admin: 04/15/19 06:56 Dose: 0.1 mg Documented by: Diphenhydramine HCl (Benadryl Capsule) 25 mg PO BID PILI Stop: 05/12/19 20:59 Last Admin: 04/15/19 07:36 Dose: 25 mg Documented by: Hydroxyzine HCl (Vistaril) 25 mg PO Q4H PRN PRN Reason: Anxiety Stop: 04/29/19 19:02 Last Admin: 03/31/19 22:45 Dose: 25 mg Documented by: Lisinopril (Zestril) 15 mg PO BID PILI Stop: 05/11/19 08:59 Last Admin: 04/15/19 07:35 Dose: 15 mg Documented by: Magnesium Hydroxide (Milk Of Magnesia) 30 ml PO DAILY PRN PRN Reason: Heartburn Stop: 04/29/19 19:02 Last Admin: 04/11/19 13:23 Dose: 30 ml Documented by: Mirtazapine (Remeron) 30 mg PO HS PILI Stop: 05/05/19 21:59 Last Admin: 04/14/19 21:07 Dose: 30 mg Documented by: Olanzapine (Zyprexa) 10 mg PO QPM PILI Stop: 04/30/19 20:59 Last Admin: 04/14/19 21:07 Dose: 10 mg Documented by: Olanzapine (Zyprexa) 2.5 mg PO BID PRN PRN Reason: agitation/anxiety Stop: 05/10/19 08:59 Last Admin: 04/10/19 08:45 Dose: 2.5 mg Documented by: Olanzapine (Zyprexa) 5 mg PO QAM PILI Stop: 05/15/19 08:59 Last Admin: 04/15/19 07:37 Dose: 5 mg Documented by: Sertraline HCl (Zoloft) 100 mg PO QAM PILI Stop: 05/09/19 08:59 Last Admin: 04/15/19 07:36 Dose: 100 mg Documented by: Sertraline HCl (Zoloft) 75 mg PO QAM PILI Stop: 05/14/19 08:59 Last Admin: 04/15/19 07:37 Dose: 75 mg Documented by: Sodium Chloride ([place] Nasal) 1 - 2 sprays NA PRN PRN PRN Reason: Nasal Dryness/Congestion Stop: 04/29/19 19:02 Mental Health & Subst Abuse Tx Psychiatrist Name of Psychiatrist: [facility] Carey Astudillo Psychiatrist's Date of Appointment with Psychiatrist: 04/20/19 Time of Appointment with Psychiatrist: 2:00 p.m. Psychiatric Appointment Comment: [address] [facility] [place] [address] Therapist Name of Therapist: DEYSI Petersen Therapist's Date of Therapist Appointment: 04/19/19 Time of Therapist Appointment: 1:30 p.m. Therapy Appointment Comment: [address] [facility] [place] [address] Post Discharge Appointments Primary Care Physician Name Of Family Doctor: [facility] - Dr. Ayala [facility] Date of Appointment with PCP: 04/25/19 Time of Appointment with PCP: 10:30 a.m. Provider Appointment Comment: [address], [address], [place] [address] Contact Information Discharge Discharge Address: [address] [place], [place] [id number] CPT Code CPT Code 44885
[2019-04-15] MEDS: MIRTAZAPINE TAB 15 MG TAB PO SCH (21:04)
[2019-04-16] MEDS: LISINOPRIL 10 MG TAB PO SCH ×2 (08:02→20:47)
[2019-04-16] MEDS: SERTRALINE HCL 100 MG TABLET PO SCH (08:03)
[2019-04-16] MEDS: OLANZapine 5 MG TABLET PO SCH (08:03)
[2019-04-16] MEDS: SERTRALINE HCL 50 MG TABLET PO SCH (08:03)
[2019-04-16] MEDS: clonazePAM 0.5 MG TAB PO PRN (08:04)
--- NOTE | 2019-04-16 12:57 | Psychiatric Progress Note ---
Date of Service April 16, 2019 Impression / Recommendations Impression 73-year-old female with a history of bipolar 1 and generalized anxiety disorder who was admitted voluntarily with severe, debilitating anxiety, depression, and inability to function. She had electrolyte abnormalities on presentation due to poor p.o. intake, was not sleeping, performing ADLs or getting out of bed at home. She has lost weight, and is cognitively impaired, and a limited historian. She has had multiple medication adjustments to target her anxiety and depressive symptoms. Her care is complex due to bipolar type I with history of freedom, trying to utilize medications to target anxiety while avoiding activation/freedom and akathisia. Ongoing medication adjustments are being pursued to target these concerns, as well as episodes of EPS. Patient has been more open about intrusive thoughts she has been experiencing for several months prior to her admission. She is extremely distressed by these homicidal thoughts towards her and family, and denies intent to act on them. Inpa tient treatment is medically necessary and remains the least restrictive option until patient is better able to demonstrate an ability to function in the outpatient setting. (1) Bipolar 1 disorder: 03/31 -current episode depressed with severe anxiety. -Clarify home med list, as there are some discrepancies (external medication history shows that she filled #30 olanzapine 10 mg tablets and hydroxyzine 25 mg tablets on 03/18/2019, but admission medication reconciliation indicates olanzapine 15 mg every afternoon and hydralazine 25 mg every afternoon). Nursing staff to call her and clarify this: Patient is not prescribed hydralazine, will remove medication. She did receive a dose last night, and blood pressure this morning was elevated 163/89, but on repeat 124/71. -Increase sertraline to 100 mg daily to target mood and anxiety, and watch for activation/mood stabilization. -It is unclear if her home dose of olanzapine is 10 or 15 mg; she received 15 mg last night, and I am concerned for EPS given her cogwheeling on exam and severe restlessness. Order benztropine 0.5 mg as needed, and reduce olanzapine to 10 milligrams at bedtime. Per she was only on 10mg olanzapine at home. May need to reduce dose further or switch to another antipsychotic if EPS does not improve. -Fasting lipid profile and glucose performed on 09/30/2018 for monitoring on an atypical antipsychotic, and were within normal limits. 04/01 -Contributing to the patient's severe anxiety may be akathisia associated with olanzapine and, possibly, sertraline. I have advised the patient accordingly, and she accepts my recommendation for a standing dose of Artane (trihexyphenidyl) -Patient otherwise indicates that she feels that she has been tolerating olanzapine well, and reports that she feels this medication has been helpful to her. -The patient's dose of sertraline has been increased to 100 mg daily 04/02 -Patient more unsteady today. Will hold any further doses of diphenhydramine for now. She does not have any cogwheeling; once she is able to relax the paratonia disappears -Patient now on moderate dose of SSRI. Reviewed she had been manic at last presentation. Considering Remeron trial which may help with restlessness and anxiety and allow for reduction of some of the anticholinergic medication she has been started on however patient appeared overwhelmed when attempting to discuss today and will defer for reconsideration tomorrow -patient refused physical therapy referral for imbalance today 04/04 - Continue current medication regimen, consider titration of mirtazapine with observation for activation 04/05 - Titrating mirtazapine to 30mg this evening - continue to monitor for possible activation and triggering of manic symptoms - Once efficacy is apparent, consider tapering sertraline to achieve antidepressant monotherapy - Continue remainder of medication regimen unchanged 04/06 - Patient reports mood and restlessness are slightly improved. - Worsening tachycardia with heart rate as high as 130, with worsening after Artane was started. As this medication can cause tachycardia, will decrease it to 1 mg twice daily. 04/07 -Tachycardia has resolved with lowered Artane dose. Restlessness is improved. 04/08 -While the patient's restlessness has improved, today, she continues to complain of restlessness and, on testing, demonstrates persistent cogwheeling. Currently, we will offer the patient a trial of diphenhydramine 12.5 mg twice a day. The target of diphenhydramine in this case is the patient's EPS, but we are also hopeful that it will aid in managing the patient's anxiety. -The patient is complaining of persistent anxiety and intrusive, ego dystonic thoughts that she tells me she is embarrassed to discuss. I offered the patient reassurances in this regard. -The patient reports that she is not having suicidal thoughts. 04/09 - 04/10 - Continue current medication regimen, reportedly demonstrating improvement 04/11 - Titrating sertraline to 150mg daily, continue remainder of current medication regimen 04/12 - Continue plan as above 04/13 - Titrating sertraline to 175mg daily, continue remainder of medication regimen for now - Pt reporting significant distress from intrusive thoughts - consider alternative options to reduce distress. Did not tolerate 15 mg dose of ol anzapine due to EPS, but could consider split dosing 5 mg / 10 mg. Could also consider retrial of risperidone, or alternative agents. 04/14 - Reviewed medication options above with the patient, who does not desire to change atypical antipsychotic medications at this time. She was agreeable to titrating the dose to 5mg qAM and 10mg qHS. - Continue to monitor for EPS as dose is titrated 04/15 -I again spoke with the patient about possibly changing her antipsychotic, mood stabilizing medication from olanzapine to risperidone. The patient says that she feels fairly strongly that she would prefer to remain on olanzapine because she feels that it does help stabilize her mood. -While the patient does endorse feelings of depression, she tells us that the depression seems to be following her anxiety and distress regarding a series of alien, intrusive ego dystonic thoughts that she has great difficulty dismissing. 04/16--now willing to start Risperdal so d/c hs dose of Zyprexa and replace with Risperdal 1 mg. Reassess in am for cross taper. (2) Generalized anxiety disorder: 03/31 -patient extremely anxious, with negative, ruminative thoughts, and severe restlessness. -Increase sertraline as above. -At home dose of hydroxyzine 25 mg at bedtime, and offer 25 mg every 4 hours as needed anxiety. -Continue clonazepam 0.5 mg every morning, and add 0.5 mg dose twice daily as needed if hydroxyzine an effective, but monitor for unsteadiness and oversedation. 04/01/19 -As noted above, some of the patient's anxious distress may be secondary to eps side effects (akathisia). -On examination, the patient does have cogwheel rigidity. However, she tells me that she feels that she is somewhat less anxious and notes that the medications for her anxiety "may be helping." 04/02 -Patient remains highly anxious. Considered alternative options for bedtime hydroxyzine to reduce anticholinergic burden. Elected to trial the Remeron at 15 mg p.o. nightly which may help off label for feelings of restlessness. Hopefully this will also help to reduce her anxiety and provide some appetite stimulation but will need to watch for mood cycling in combination with the sertraline. If she does well with this agent, could consider using it as antidepressant monotherapy (tapering her off the Zoloft) 04/04 - Continue current medication regimen - consider increase or mirtazapine and possible taper of sertraline as outlined above; wanting to ensure tolerance prior to switching to mirtazapine as monotherapy 04/05 - Titrating mirtazapine to 30mg this evening; will continue sertraline at 100mg until efficacy of mirtazapine can be determined - Continue remainder of medication regimen unchanged 04/08 -As above, we are increasing her dose of sertraline to a dose of 125 mg daily to treat anxiety and depression. We will continue olanzapine to serve as a mood stabilizer given the patient's diagnosis of bipolar disorder. -Also as noted above, we have added diphenhydramine 12.5 mg twice a day for extraparametal side effects, persistent) EPS, and we will discontinue Artane. Hopefully, diphenhydramine will help not only with extraparametal side effects but, also, with the patient's generalized anxiety. -The patient's standing dose of clonazepam has been increased from 0.5 mg in the morning to 0.5 mg 3 times a day. She will also have available to her as needed clonazepam. Material risks and anticipated benefits of clonazepam have been reviewed with the patient, and it has been explained that this is not expected to be a long-term intervention but, instead, is being used to help bring the patient's anxiety under better control so that she can more fruitful he participate in the treatment on the. 04/09 - Continue current medication regimen; consider need for further titration of sertraline to 150mg daily - Patient appearing less restless/anxious, though she describes her symptoms to be unchanged 04/10 - Continue current medication regimen; consider titration of sertraline as above - pt limited in willingness to discuss multiple changes today - Patient's appearance is improving, though she reports limited changes in her condition 04/11 - Titrate sertraline to 150mg daily. Pt reporting daytime sedation, can consider possible reduction of prns at some point, when she begins to be more effective - Pt reporting mild improvements in anxiety 04/12 - Continue sertraline 150mg daily - In attempt to reduce sedation, but maintain progress with reducing anxiety/restlessness - will titrate diphenhydramine to 25mg daily (this will also allow for medication in capsule form, which patient prefers). Will discontinue scheduled TID clonazepam, but leave available prn dosing should patient require it during the day for anxiety or other concerns. - Staff also reporting apneic episodes observed at night; reducing reliance on benzodiazepines will be ideal as will reduce additional risk for respiratory concerns - Continue to encourage development of healthy and effective coping strategies 04/13 - Titrating sertraline to 175mg daily - Continue remainder of medication regimen as above - Pt has been more open about intrusive homicidal thoughts, distressing, with no intent to act. Pt is very disturbed by these thoughts - Patient unwilling for additional medication adjustments today; however, could consider titration of olanzapine. Patient did experience significant EPS when she received a 15 mg dose early in her admission. Consider split dosing - 5mg/10mg - Also consider retrial for risperidone (beneficial on last admission), possibly as prn and then scheduled in place of olanzapine if effective. Can also consider trial of another atypical antipsychotic which may better target concerns. 04/14 - Continue medication adjustments as above - olanzapine 5mg qAM and 10mg qHS 04/15 -The patient's anxiety symptoms seem to be a combination of anxious distress associated with ego-dystonic intrusive thoughts, as well as restlessness associated with extraparametal side effects from her medications. -She has tolerated an increase in her dose of diphenhydramine from 12.5 mg to 25 mg without excess sedation, and she tells us that she much prefers this because she did not like the taste of liquid diphenhydramine. -We are beginning clonazepam 0.5 mg up to 3 times a day as needed for anxiety. The patient has a past history of favorable response to this medication. Material risks, including, but not limited to excess sedation, increased risk of accident, increased risk for falls, physical habituation with complicated withdrawal that may may be fatal and can include seizures, and cognitive impairment. The patient indicates understanding and notes that she has had no problems taking the clonazepam in the past. (3) Hyponatremia: 03/31 -sodium 129 on initial presentation, improved to 130 after 1 liter NS in the ER. Encourage good p.o. intake, and recheck BMP tomorrow. 04/01 -current sodium level is within normal limits. 04/03 - Remeron low risk for hyponatremia 04/04 - BMP reviewed with patient today; hyponatremia now normalized at 137 - Reporting improved nutritional intake (4) Hypertension: 03/31 -continue lisinopril 10 mg daily. Monitor BP. 04/02 -BP again asymptomatically elevated this morning. We will increase lisinopril to 15 mg daily 04/03 -Tolerated increased dose of lisinopril adequately. Blood pressures remain elevated in a.m.'s. 04/05 - BP's remain elevated in the AMs. Event rechecks after medication administration have been mildly elevated. Will trial lisinopril 20mg tomorrow. - Continue to monitor 04/06 -Blood pressure has normalized, but remains tachycardic. Heart rate as high as 130 today. Will decrease Artane as above his heart rate is increased since it was started and it can cause tachycardia. 04/09 - Blood pressure remains elevated in the AM, improved in the afternoons - patient unwilling today to discuss titration of lisinopril - Review again tomorrow, consider HS dose of lisinopril if there is little improvement 04/10 - Ordered 10mg dose of lisinopril for this evening - with then begin 15mg BID dosing - If no improvement, consider discussing with hospitalist for further recommendations as she has not demonstrated strong response to changes thus far 04/11 - BP elevated again this morning - 179/108. Improved to 112/75 after receiving AM medications - Ordered clonidine 0.1mg q4h prn for systolic above 180 and/or diastolic ab ove 100 - Will plan for vitals to be checked throughout the day 04/12 - Pt tolerating BID dosing of lisinopril - AM BP was elevated, but not as significantly as previous days; afternoon readings show improvement - Will continue to check vitals throughout the day to ensure consistency 04/13 - Continued improvement noted in patient's blood pressure readings - Continue lisinopril 15mg BID (5) Hypokalemia: 04/01 -The patient's potassium level has remained 3.1 for 2 days now, within the context of poor oral intake. -Encourage oral intake. -Potassium chloride supplement 20 mEq daily x 6. 04/02 -Repeat BMP ordered for Thursday morning for sodium and potassium monitoring. 04/04 - Reviewed BMP with patient, hypokalemia now normalized - 3.9 - Continue to encourage adequate oral intake - Pt requesting trial of potassium supplement in tablet form 04/15 -We are considering this problem to be resolved. Risk Factors Assessment Male: No : Yes Do You Have Access To A Gun?: Yes ( has guns that are locked) Health Problems: Yes Mental Health Diagnoses: Yes Substance Use Disorders: No Previous Attempt: No Family History of Suicide: No Previous Psychiatric Hospitalization: Yes Hopelessness: Yes Smoker: No Protective Factors Assessment : Yes Responsible for Young Children: No Employed: No Supportive Family: Yes Good Rapport with Provider: Yes Interval History Identifying Information VALENTINA CLARK is a 73-year-old F who currently lives in [place] with her , has a history of bipolar disorder type I and generalized anxiety disorder, and was admitted on 03/30/19 19:35 on a 201 voluntary commitment for severe anxiety and inability to function. Chief Complaint "I'm just not any better, those thoughts bother me all the time". Review of Systems Sleep Information Total Hours of Sleep: 8 Sleep Comments: snored softly-even breathing Meal Information Percent Meal Consumed - Breakfast: 75 Percent Meal Consumed - Lunch: 25 Percent Meal Consumed - Dinner: 25 Nutrition Comment: Bites Subjective Subjective Patient was seen & assessed and interval progress reviewed with nursing and social work. has noted more shuffling of gait and there is some concern about sedation with Zyprexa. Klonopin prn has been a little helpful with calming the thoughts but no interval improvement in delusional ruminations despite increase. She agrees that functioned better on Risperdal and is willing to restart it. There is no clear reason it was discontinued though will need to watch anticholinergics. Physical Exam Psychiatric Orientation: oriented to person, oriented to place and cooperative (superficially) Apperance: appropriately dressed, appropriately groomed and appeared stated age Eye Contact: + fair eye contact Motor Behavior: no abnormal motor movements and + psychomotor retardation; n akathisia Speech: normal rate/rhythm/volume of speech Affect: + depressed affect, + anxious affect and + blunted affect Mood: + depressed mood and + anxious mood Thought Process: + thought blocking (appearing as though ruminations are preventing timly response to questions) and + concrete thought process Thought Content: + preoccupation (with intrusive thoughts), + obsessions and + hopelessness Suicidal Thoughts: denies suicidal thoughts Homicidal Thoughts: denies homicidal thoughts Hallucinations: no auditory hallucinations and no visual hallucinations Cognition: remote memory grossly intact and language grossly intact Estimated Intelligence: consistent with education level Insight: + impaired insight Judgement: + impaired judgement Vital Signs (Past 24 Hours) Last Vital Signs Temp 36.5 C 04/16/19 06:50 Pulse 105 H 04/16/19 06:51 Resp 20 04/16/19 06:50 BP 169/97 H 04/16/19 06:51 Pulse Ox 97 04/11/19 06:46 Results & Data Current Inpatient Medications Current Inpatient Medications: Current Inpatient Medications Acetaminophen (Tylenol) 650 mg PO Q4H PRN PRN Reason: Headache or Minor Fever Stop: 04/29/19 19:02 Last Admin: 04/13/19 04:30 Dose: 650 mg Documented by: Al Hydrox/Mg Hydrox/Simethicone (Maalox) 30 ml PO Q4H PRN PRN Reason: GI Upset Stop: 04/29/19 19:02 Bismuth Subsalicylate (Kaopectate) 15 ml PO PRN PRN PRN Reason: Loose Stool Stop: 04/29/19 19:02 Clonazepam (Klonopin) 0.5 mg PO TID PRN PRN Reason: Anxiety Stop: 05/15/19 15:26 Last Admin: 04/16/19 08:04 Dose: 0.5 mg Documented by: Clonidine HCl (Catapres) 0.1 mg PO Q4H PRN PRN Reason: Hypertension Stop: 05/11/19 09:16 Last Admin: 04/15/19 06:56 Dose: 0.1 mg Documented by: Diphenhydramine HCl (Benadryl Capsule) 25 mg PO BID PILI Stop: 05/12/19 20:59 Last Admin: 04/16/19 08:03 Dose: 25 mg Documented by: Hydroxyzine HCl (Vistaril) 25 mg PO Q4H PRN PRN Reason: Anxiety Stop: 04/29/19 19:02 Last Admin: 03/31/19 22:45 Dose: 25 mg Documented by: Lisinopril (Zestril) 15 mg PO BID PILI Stop: 05/11/19 08:59 Last Admin: 04/16/19 08:02 Dose: 15 mg Documented by: Magnesium Hydroxide (Milk Of Magnesia) 30 ml PO DAILY PRN PRN Reason: Heartburn Stop: 04/29/19 19:02 Last Admin: 04/11/19 13:23 Dose: 30 ml Documented by: Mirtazapine (Remeron) 30 mg PO HS PILI Stop: 05/05/19 21:59 Last Admin: 04/15/19 21:04 Dose: 30 mg Documented by: Risperidone (Risperdal) 1 mg PO HS PILI Stop: 05/16/19 21:59 Sertraline HCl (Zoloft) 200 mg PO QAM PILI Stop: 05/17/19 08:59 Sodium Chloride ([place] Nasal) 1 - 2 sprays NA PRN PRN PRN Reason: Nasal Dryness/Congestion Stop: 04/29/19 19:02 Mental Health & Subst Abuse Tx Psychiatrist Name of Psychiatrist: BENJAMIN Carey Astudillo Psychiatrist's Date of Appointment with Psychiatrist: 04/20/19 Time of Appointment with Psychiatrist: 2:00 p.m. Psychiatric Appointment Comment: [address] [place] [address] Therapist Name of Therapist: DEYSI Petersen Therapist's Date of Therapist Appointment: 04/19/19 Time of Therapist Appointment: 1:30 p.m. Therapy Appointment Comment: [address] [place] [address] Post Discharge Appointments Primary Care Physician Name Of Family Doctor: [facility] - [facility] Date of Appointment with PCP: 04/25/19 Time of Appointment with PCP: 10:30 a.m. Provider Appointment Comment: [address], [address], [place] [address] Contact Information Discharge Discharge Address: [address] [place] [id number] CPT Code CPT Code 36510
[2019-04-16] MEDS: MIRTAZAPINE TAB 15 MG TAB PO SCH (20:48)
[2019-04-16] MEDS ORDERED: risperiDONE 1 MG TABLET PO SCH (22:00)
[2019-04-17] MEDS: LISINOPRIL 10 MG TAB PO SCH ×2 (07:48→21:18)
[2019-04-17] MEDS: SERTRALINE HCL 100 MG TABLET PO SCH (07:48)
[2019-04-17] MEDS: clonazePAM 0.5 MG TAB PO PRN (07:49)
--- NOTE | 2019-04-17 11:36 | Psychiatric Progress Note ---
Date of Service April 17, 2019 Impression / Recommendations Impression 73-year-old female with a history of bipolar 1 and generalized anxiety disorder who was admitted voluntarily with severe, debilitating anxiety, depression, and inability to function. She had electrolyte abnormalities on presentation due to poor p.o. intake, was not sleeping, performing ADLs or getting out of bed at home. She has lost weight, and is cognitively impaired, and a limited historian. She has had multiple medication adjustments to target her anxiety and depressive symptoms. Her care is complex due to bipolar type I with history of freedom, trying to utilize medications to target anxiety while avoiding activation/freedom and akathisia. Ongoing medication adjustments are being pursued to target these concerns, as well as episodes of EPS. Patient has been more open about intrusive thoughts she has been experiencing for several months prior to her admission. She is extremely distressed by these homicidal thoughts towards her and family, and denies intent to act on them. In patient treatment is medically necessary and remains the least restrictive option until patient is better able to demonstrate an ability to function in the outpatient setting. (1) Bipolar 1 disorder: 03/31 -current episode depressed with severe anxiety. -Clarify home med list, as there are some discrepancies (external medication history shows that she filled #30 olanzapine 10 mg tablets and hydroxyzine 25 mg tablets on 03/18/2019, but admission medication reconciliation indicates olanzapine 15 mg every afternoon and hydralazine 25 mg every afternoon). Nursing staff to call her and clarify this: Patient is not prescribed hydralazine, will remove medication. She did receive a dose last night, and blood pressure this morning was elevated 163/89, but on repeat 124/71. -Increase sertraline to 100 mg daily to target mood and anxiety, and watch for activation/mood stabilization. -It is unclear if her home dose of olanzapine is 10 or 15 mg; she received 15 mg last night, and I am concerned for EPS given her cogwheeling on exam and severe restlessness. Order benztropine 0.5 mg as needed, and reduce olanzapine to 10 milligrams at bedtime. Per she was only on 10mg olanzapine at home. May need to reduce dose further or switch to another antipsychotic if EPS does not improve. -Fasting lipid profile and glucose performed on 09/30/2018 for monitoring on an atypical antipsychotic, and were within normal limits. 04/01 -Contributing to the patient's severe anxiety may be akathisia associated with olanzapine and, possibly, sertraline. I have advised the patient accordingly, and she accepts my recommendation for a standing dose of Artane (trihexyphenidyl) -Patient otherwise indicates that she feels that she has been tolerating olanzapine well, and reports that she feels this medication has been helpful to her. -The patient's dose of sertraline has been increased to 100 mg daily 04/02 -Patient more unsteady today. Will hold any further doses of diphenhydramine for now. She does not have any cogwheeling; once she is able to relax the paratonia disappears -Patient now on moderate dose of SSRI. Reviewed she had been manic at last presentation. Considering Remeron trial which may help with restlessness and anxiety and allow for reduction of some of the anticholinergic medication she has been started on however patient appeared overwhelmed when attempting to discuss today and will defer for reconsideration tomorrow -patient refused physical therapy referral for imbalance today 04/04 - Continue current medication regimen, consider titration of mirtazapine with observation for activation 04/05 - Titrating mirtazapine to 30mg this evening - continue to monitor for possible activation and triggering of manic symptoms - Once efficacy is apparent, consider tapering sertraline to achieve antidepressant monotherapy - Continue remainder of medication regimen unchanged 04/06 - Patient reports mood and restlessness are slightly improved. - Worsening tachycardia with heart rate as high as 130, with worsening after Artane was started. As this medication can cause tachycardia, will decrease it to 1 mg twice daily. 04/07 -Tachycardia has resolved with lowered Artane dose. Restlessness is improved. 04/08 -While the patient's restlessness has improved, today, she continues to complain of restlessness and, on testing, demonstrates persistent cogwheeling. Currently, we will offer the patient a trial of diphenhydramine 12.5 mg twice a day. The target of diphenhydramine in this case is the patient's EPS, but we are also hopeful that it will aid in managing the patient's anxiety. -The patient is complaining of persistent anxiety and intrusive, ego dystonic thoughts that she tells me she is embarrassed to discuss. I offered the patient reassurances in this regard. -The patient reports that she is not having suicidal thoughts. 04/09 - 04/10 - Continue current medication regimen, reportedly demonstrating improvement 04/11 - Titrating sertraline to 150mg daily, continue remainder of current medication regimen 04/12 - Continue plan as above 04/13 - Titrating sertraline to 175mg daily, continue remainder of medication regimen for now - Pt reporting significant distress from intrusive thoughts - consider alternative options to reduce distress. Did not tolerate 15 mg dose of olanzapine due to EPS, but could consider split dosing 5 mg / 10 mg. Could also consider retrial of risperidone, or alternative agents. 04/14 - Reviewed medication options above with the patient, who does not desire to change atypical antipsychotic medications at this time. She was agreeable to titrating the dose to 5mg qAM and 10mg qHS. - Continue to monitor for EPS as dose is titrated 04/15 -I again spoke with the patient about possibly changing her antipsychotic, mood stabilizing medication from olanzapine to risperidone. The patient says that she feels fairly strongly that she would prefer to remain on olanzapine because she feels that it does help stabilize her mood. -While the patient does endorse feelings of depression, she tells us that the depression seems to be following her anxiety and distress regarding a series of alien, intrusive ego dystonic thoughts that she has great difficulty dismissing. 04/16--now willing to start Risperdal so d/c hs dose of Zyprexa and replace with Risperdal 1 mg. Reassess in am for cross taper. 04/17--not tolerating Risperdal 1 mg due to orthostasis. Reassess for restart of Zyprexa this hs vs prn Haldol. (2) Generalized anxiety disorder: 03/31 -patient extremely anxious, with negative, ruminative thoughts, and severe restlessness. -Increase sertraline as above. -At home dose of hydroxyzine 25 mg at bedtime, and offer 25 mg every 4 hours as needed anxiety. -Continue clonazepam 0.5 mg every morning, and add 0.5 mg dose twice daily as needed if hydroxyzine an effective, but monitor for unsteadiness and oversedation. 04/01/19 -As noted above, some of the patient's anxious distress may be secondary to eps side effects (akathisia). -On examination, the patient does have cogwheel rigidity. However, she tells me that she feels that she is somewhat less anxious and notes that the medications for her anxiety "may be helping." 04/02 -Patient remains highly anxious. Considered alternative options for bedtime hydroxyzine to reduce anticholinergic burden. Elected to trial the Remeron at 15 mg p.o. nightly which may help off label for feelings of restlessness. Hopefully this will also help to reduce her anxiety and provide some appetite stimulation but will need to watch for mood cycling in combination with the sertraline. If she does well with this agent, could consider using it as antidepressant monotherapy (tapering her off the Zoloft) 04/04 - Continue current medication regimen - consider increase or mirtazapine and possible taper of sertraline as outlined above; wanting to ensure tolerance prior to switching to mirtazapine as monotherapy 04/05 - Titrating mirtazapine to 30mg this evening; will continue sertraline at 100mg until efficacy of mirtazapine can be determined - Continue remainder of medication regimen unchanged 04/08 -As above, we are increasing her dose of sertraline to a dose of 125 mg daily to treat anxiety and depression. We will continue olanzapine to serve as a mood stabilizer given the patient's diagnosis of bipolar disorder. -Also as noted above, we have added diphenhydramine 12.5 mg twice a day for extraparametal side effects, persistent) EPS, and we will discontinue Artane. Hopefully, diphenhydramine will help not only with extraparametal side effects but, also, with the patient's generalized anxiety. -The patient's standing dose of clonazepam has been increased from 0.5 mg in the morning to 0.5 mg 3 times a day. She will also have available to her as needed clonazepam. Material risks and anticipated benefits of clonazepam have been reviewed with the patient, and it has been explained that this is not expected to be a long-term intervention but, instead, is being used to help bring the patient's anxiety under better control so that she can more fruitful he participate in the treatment on the. 04/09 - Continue current medication regimen; consider need for further titration of sertraline to 150mg daily - Patient appearing less restless/anxious, though she describes her symptoms to be unchanged 04/10 - Continue current medication regimen; consider titration of sertraline as above - pt limited in willingness to discuss multiple changes today - Patient's appearance is improving, though she reports limited changes in her condition 04/11 - Titrate sertraline to 150mg daily. Pt reporting daytime sedation, can consider possible reduction of prns at some point, when she begins to be more effective - Pt reporting mild improvements in anxiety 04/12 - Continue sertraline 150mg daily - In attempt to reduce sedation, but maintain progress with reducing anxiety/restlessness - will titrate diphenhydramine to 25mg daily (this will also allow for medication in capsule form, which patient prefers). Will discontinue scheduled TID clonazepam, but leave available prn dosing should patient require it during the day for anxiety or other concerns. - Staff also reporting apneic episodes observed at night; reducing reliance on benzodiazepines will be ideal as will reduce additional risk for respiratory concerns - Continue to encourage development of healthy and effective coping strategies 04/13 - Titrating sertraline to 175mg daily - Continue remainder of medication regimen as above - Pt has been more open about intrusive homicidal thoughts, distressing, with no intent to act. Pt is very disturbed by these thoughts - Patient unwilling for additional medication adjustments today; however, could consider titration of olanzapine. Patient did experience significant EPS when she received a 15 mg dose early in her admission. Consider split dosing - 5mg/10mg - Also consider retrial for risperidone (beneficial on last admission), possibly as prn and then scheduled in place of olanzapine if effective. Can also consider trial of another atypical antipsychotic which may better target concerns. 04/14 - Continue medication adjustments as above - olanzapine 5mg qAM and 10mg qHS 04/15 -The patient's anxiety symptoms seem to be a combination of anxious distress associated with ego-dystonic intrusive thoughts, as well as restlessness associated with extraparametal side effects from her medications. -She has tolerated an increase in her dose of diphenhydramine from 12.5 mg to 25 mg without excess sedation, and she tells us that she much prefers this because she did not like the taste of liquid diphenhydramine. -We are beginning clonazepam 0.5 mg up to 3 times a day as needed for anxiety. The patient has a past history of favorable response to this medication. Material risks, including, but not limited to excess sedation, increased risk of accident, increased risk for falls, physical habituation with complicated withdrawal that may may be fatal and can include seizures, and cognitive impairment. The patient indicates understanding and notes that she has had no problems taking the clonazepam in the past. (3) Hyponatremia: 03/31 -sodium 129 on initial presentation, improved to 130 after 1 liter NS in the ER. Encourage good p.o. intake, and recheck BMP tomorrow. 04/01 -current sodium level is within normal limits. 04/03 - Remeron low risk for hyponatremia 04/04 - BMP reviewed with patient today; hyponatremia now normalized at 137 - Reporting improved nutritional intake (4) Hypertension: 03/31 -continue lisinopril 10 mg daily. Monitor BP. 04/02 -BP again asymptomatically elevated this morning. We will increase lisinopril to 15 mg daily 04/03 -Tolerated increased dose of lisinopril adequately. Blood pressures remain elevated in a.m.'s. 04/05 - BP's remain elevated in the AMs. Event rechecks after medication administration have been mildly elevated. Will trial lisinopril 20mg tomorrow. - Continue to monitor 04/06 -Blood pressure has normalized, but remains tachycardic. Heart rate as high as 130 today. Will decrease Artane as above his heart rate is increased since it was started and it can cause tachycardia. 04/09 - Blood pressure remains elevated in the AM, improved in the afternoons - patient unwilling today to discuss titration of lisinopril - Review again tomorrow, consider HS dose of lisinopril if there is little improvement 04/10 - Ordered 10mg dose of lisinopril for this evening - with then begin 15mg BID dosing - If no improvement, consider discussing with hospitalist for further recommendations as she has not demonstrated strong response to changes thus far 04/11 - BP elevated again this morning - 179/108. Improved to 112/75 after receiving AM medications - Ordered clonidine 0.1mg q4h prn for systolic above 180 and/or diastolic above 100 - Will plan for vitals to be checked throughout the day 04/12 - Pt tolerating BID dosing of lisinopril - AM BP was elevated, but not as significantly as previous days; afternoon readings show improvement - Will continue to check vitals throughout the day to ensure consistency 04/13 - Continued improvement noted in patient's blood pressure readings - Continue lisinopril 15mg BID (5) Hypokalemia: 04/01 -The patient's potassium level has remained 3.1 for 2 days now, within the context of poor oral intake. -Encourage oral intake. -Potassium chloride supplement 20 mEq daily x 6. 04/02 -Repeat BMP ordered for Thursday for sodium and potassium monitoring. 04/04 - Reviewed BMP with patient, hypokalemia now normalized - 3.9 - Continue to encourage adequate oral intake - Pt requesting trial of potassium supplement in tablet form 04/15 -We are considering this problem to be resolved. Risk Factors Assessment Male: No : Yes Do You Have Access To A Gun?: Yes ( has guns that are locked) Health Problems: Yes Mental Health Diagnoses: Yes Substance Use Disorders: No Previous Attempt: No Family History of Suicide: No Previous Psychiatric Hospitalization: Yes Hopelessness: Yes Smoker: No Protective Factors Assessment : Yes Responsible for Young Children: No Employed: No Supportive Family: Yes Good Rapport with Provider: Yes Interval History Identifying Information VALENTINA CLARK is a 73-year-old F who currently lives in [place] with her , has a history of bipolar disorder type I and generalized anxiety disorder, and was admitted on 03/30/19 19:35 on a 201 voluntary commitment for severe anxiety and inability to function. Chief Complaint "I'm dizzy". Review of Systems Sleep Information Total Hours of Sleep: 6.25 Sleep Comments: up to the bathroom at 0430 and she did not return back to sleep . she did lay in bed, offered no comments or issues on other rounds. Meal Information Percent Meal Consumed - Breakfast: 80 Percent Meal Consumed - Lunch: 25 Percent Meal Consumed - Dinner: 100 Nutrition Comment: Bites Subjective Subjective Patient was seen & assessed and interval progress reviewed with nursing and soci al work. She did not sleep as well last night with d/c of Zyprexa and staff performed orthostatic vitals at my direction. She continues to report same thought. Staff give varying reports re: shakiness, gait, symptoms shift to shift. She is upset she didn't sleep well. Physical Exam Psychiatric Orientation: alert and cooperative Apperance: appropriately groomed Eye Contact: + fair eye contact Motor Behavior: steady gait and station Speech: normal rate/rhythm/volume of speech Affect: + depressed affect and + anxious affect Mood: + depressed mood and + anxious mood Thought Process: + perseveration Thought Content: + preoccupation and + delusions Suicidal Thoughts: denies suicidal thoughts Homicidal Thoughts: denies homicidal thoughts Hallucinations: no auditory hallucinations and no visual hallucinations Cognition: language grossly intact Estimated Intelligence: consistent with education level Insight: + limited insight Judgement: + limited judgement Vital Signs (Past 24 Hours) Last Vital Signs Temp 36.8 C 04/17/19 06:40 Pulse 120 H 04/17/19 09:54 Resp 20 04/17/19 09:54 BP 83/55 L 04/17/19 09:54 Pulse Ox 97 04/11/19 06:46 Results & Data Current Inpatient Medications Current Inpatient Medications: Current Inpatient Medications Acetaminophen (Tylenol) 650 mg PO Q4H PRN PRN Reason: Headache or Minor Fever Stop: 04/29/19 19:02 Last Admin: 04/13/19 04:30 Dose: 650 mg Documented by: Al Hydrox/Mg Hydrox/Simethicone (Maalox) 30 ml PO Q4H PRN PRN Reason: GI Upset Stop: 04/29/19 19:02 Bismuth Subsalicylate (Kaopectate) 15 ml PO PRN PRN PRN Reason: Loose Stool Stop: 04/29/19 19:02 Clonazepam (Klonopin) 0.5 mg PO TID PRN PRN Reason: Anxiety Stop: 05/15/19 15:26 Last Admin: 04/17/19 07:49 Dose: 0.5 mg Documented by: Clonidine HCl (Catapres) 0.1 mg PO Q4H PRN PRN Reason: Hypertension Stop: 05/11/19 09:16 Last Admin: 04/15/19 06:56 Dose: 0.1 mg Documented by: Diphenhydramine HCl (Benadryl Capsule) 25 mg PO BID PILI Stop: 05/12/19 20:59 Last Admin: 04/17/19 07:49 Dose: 25 mg Documented by: Hydroxyzine HCl (Vistaril) 25 mg PO Q4H PRN PRN Reason: Anxiety Stop: 04/29/19 19:02 Last Admin: 03/31/19 22:45 Dose: 25 mg Documented by: Lisinopril (Zestril) 15 mg PO BID PILI Stop: 05/11/19 08:59 Last Admin: 04/17/19 07:48 Dose: 15 mg Documented by: Magnesium Hydroxide (Milk Of Magnesia) 30 ml PO DAILY PRN PRN Reason: Heartburn Stop: 04/29/19 19:02 Last Admin: 04/11/19 13:23 Dose: 30 ml Documented by: Mirtazapine (Remeron) 30 mg PO HS PILI Stop: 05/05/19 21:59 Last Admin: 04/16/19 20:48 Dose: 30 mg Documented by: Sertraline HCl (Zoloft) 200 mg PO QAM PILI Stop: 05/17/19 08:59 Last Admin: 04/17/19 07:48 Dose: 200 mg Documented by: Sodium Chloride (Latimer Nasal) 1 - 2 sprays NA PRN PRN PRN Reason: Nasal Dryness/Congestion Stop: 04/29/19 19:02 Mental Health & Subst Abuse Tx Psychiatrist Name of Psychiatrist: [facility] Carey Astudillo Psychiatrist's Date of Appointment with Psychiatrist: 04/20/19 Time of Appointment with Psychiatrist: 2:00 p.m. Psychiatric Appointment Comment: [address] [facility] [place] [address] Therapist Name of Therapist: BENJAMIN Carey Petersen Therapist's Date of Therapist Appointment: 04/19/19 Time of Therapist Appointment: 1:30 p.m. Therapy Appointment Comment: [address] [facility] [place] [address] Post Discharge Appointments Primary Care Physician Name Of Family Doctor: [facility] - Dr. Ayala [facility] Date of Appointment with PCP: 04/25/19 Time of Appointment with PCP: 10:30 a.m. Provider Appointment Comment: [address], [address], [place] [address] Contact Information Discharge Discharge Address: [address] [place], [place] [id number] CPT Code CPT Code 25768
[2019-04-17 20:43] LABS: Basophils # (auto) 0.05 K/uL (0-0.2); Basophils % (auto) 0.8 %; Eosinophils # (auto) 0.17 K/uL (0-0.5); Eosinophils % (auto) 2.6 %; Hematocrit (blood only) 33.8 % (37-47); Hemoglobin 11.8 g/dL (12.0-16.0); Immature Granulocytes # (auto) 0.03 K/uL (0.00-0.02); Immature Granulocytes % (auto) 0.5 %; Lymphocytes # (auto) 1.48 K/uL (1.2-3.4); Lymphocytes % (auto) 22.8 %; Mean Corpuscular Hemoglobin 31.8 pg (25-34); Mean Corpuscular Volume 91.1 fL (80-100); Mean Platelet Volume 9.1 fL (7.4-10.4); Monocytes # (auto) 0.64 K/uL (0.11-0.59); Monocytes % (auto) 9.9 %; Neutrophils # (auto) 4.11 K/uL (1.4-6.5); Neutrophils % (auto) 63.4 %; Platelet Count 291 K/uL (130-400); RDW Coefficient of Variation 13.3 % (11.5-14.5); RDW Standard Deviation 44.2 fL (36.4-46.3); Red Blood Count 3.71 M/uL (4.2-5.4); White Blood Count 6.48 K/uL (4.8-10.8)
[2019-04-17 20:46] LABS: Mean Corpuscular Hgb Conc 34.9 g/dL (32-36)
[2019-04-17 20:57] LABS: Potassium 4.3 mmol/L (3.5-5.1)
[2019-04-17 21:00] LABS: Albumin Level 3.1 gm/dl (3.4-5.0); BUN Creatinine Ratio 32.2 (10-20); Calcium 8.9 mg/dl (8.5-10.1); Creatinine Clr Calc Pharmacy 67.1 ml/min; Est GFR (African American) 104.6; Est GFR (Non-African American) 90.2; Potassium 4.2 mmol/L (3.5-5.1)
[2019-04-17] MEDS: OLANZapine 10 MG TAB PO SCH (21:08)
[2019-04-17] MEDS: MIRTAZAPINE TAB 15 MG TAB PO SCH (21:19)
[2019-04-17] MEDS: ZOLPIDEM TARTRATE 5 MG TAB PO PRN (21:19)
--- NOTE | 2019-04-17 21:23 | Psychiatric Progress Note ---
Date of Service April 17, 2019 Impression / Recommendations Impression 73-year-old female with a history of bipolar 1 and generalized anxiety disorder who was admitted voluntarily with severe, debilitating anxiety, depression, and inability to function. She had electrolyte abnormalities on presentation due to poor p.o. intake, was not sleeping, performing ADLs or getting out of bed at home. She has lost weight, and is cognitively impaired, and a limited historian. She has had multiple medication adjustments to target her anxiety and depressive symptoms. Her care is complex due to bipolar type I with history of freedom, trying to utilize medications to target anxiety while avoiding activation/freedom and akathisia. Ongoing medication adjustments are being pursued to target these concerns, as well as episodes of EPS. Patient has been more open about intrusive thoughts she has been experiencing for several months prior to her admission. She is extremely distressed by these homicidal thoughts towards her and family, and denies intent to act on them. In patient treatment is medically necessary and remains the least restrictive option until patient is better able to demonstrate an ability to function in the outpatient setting. (1) Orthostatic dizziness: am labs were ordered for stat and reviewed. staff will attempt to obtain UA. Differential was considered, including but not limited to anticholinergic toxicity (though sweaty), NMS (no muscle rigidity, no CPK), serotonin syndrome (no fever, no D). Her Na has been low in the past, no significant drop if H&H. Benadryl stopped, falls precautions, encourage fluids, staff to give gatorade as BUN is 20 but BUN/Cr ration >30 and higher than previously hold Zyprexa for tonight, anticipate sleep difficulties so will offer prn Ambien to avoid Vistaril. repeat labs ordered for am, if no improvement or ongoing symptoms will consult hospitalist for possible IVF. Risk Factors Assessment Male: No : Yes Do You Have Access To A Gun?: Yes ( has guns that are locked) Health Problems: Yes Mental Health Diagnoses: Yes Substance Use Disorders: No Previous Attempt: No Family History of Suicide: No Previous Psychiatric Hospitalization: Yes Hopelessness: Yes Smoker: No Protective Factors Assessment : Yes Responsible for Young Children: No Employed: No Supportive Family: Yes Good Rapport with Provider: Yes Interval History Identifying Information VALENTINA CLARK is a 73-year-old F who currently lives in [place] with her , has a history of bipolar disorder type I and generalized anxiety disorder, and was admitted on 03/30/19 19:35 on a 201 voluntary commitment for severe anxiety and inability to function. Chief Complaint c/o blurry vision with walking Review of Systems Sleep Information Total Hours of Sleep: 6.25 Sleep Comments: up to the bathroom at 0430 and she did not return back to sleep . she did lay in bed, offered no comments or issues on other rounds. Meal Information Percent Meal Consumed - Breakfast: 80 Percent Meal Consumed - Lunch: 75 Percent Meal Consumed - Dinner: 25 Nutrition Comment: Bites Subjective Subjective staff contacted occupational work experience teacher provider as patient was returning to room and appeared shakier than usual, sweaty, stated she had blurry vision and couldn't think right. Symptoms occurred while standing and she has been orthostatic throughout the day. She has mainly been in room so unclear how much she is drinking. Physical Exam Vital Signs (Past 24 Hours) Last Vital Signs Temp 36.8 C 04/17/19 06:40 Pulse 121 H 04/17/19 15:00 Resp 20 04/17/19 15:00 BP 97/67 L 04/17/19 15:00 Pulse Ox 97 04/11/19 06:46 Results & Data Laboratory Results Laboratory Results - last 24 hr 04/17/19 04/17/19 04/17/19 20:09 20:29 20:29 WBC 6.48 RBC 3.71 L Hgb 11.8 L Hct 33.8 L MCV 91.1 MCH 31.8 MCHC 34.9 RDW Std Deviation 44.2 RDW Coeff of Gerson 13.3 Plt Count 291 MPV 9.1 Immature Gran % (Auto) 0.5 Neut % (Auto) 63.4 Lymph % (Auto) 22.8 Rogers % (Auto) 9.9 Eos % (Auto) 2.6 Baso % (Auto) 0.8 Immature Gran # (Auto) 0.03 H Neut # (Auto) 4.11 Lymph # (Auto) 1.48 Rogers # (Auto) 0.64 H Eos # (Auto) 0.17 Baso # (Auto) 0.05 Sodium 133 L Potassium 4.2 Chloride 99 Carbon Dioxide 28 Anion Gap 6.0 BUN 20 H Creatinine 0.63 Est Cr Clr Drug Dosing 67.1 Est GFR ( Amer) 104.6 Est GFR (Non-Af Amer) 90.2 BUN/Creatinine Ratio 32.2 H Glucose 105 H POC Glucose 108 H Calcium 8.9 Phosphorus 4.0 Total Creatine Kinase 32 Albumin 3.1 L 04/17/19 20:29 WBC RBC Hgb Hct MCV MCH MCHC RDW Std Deviation RDW Coeff of Gerson Plt Count MPV Immature Gran % (Auto) Neut % (Auto) Lymph % (Auto) Rogers % (Auto) Eos % (Auto) Baso % (Auto) Immature Gran # (Auto) Neut # (Auto) Lymph # (Auto) Rogers # (Auto) Eos # (Auto) Baso # (Auto) Sodium 133 L Potassium 4.3 Chloride 99 Carbon Dioxide 28 Anion Gap 7.0 BUN Creatinine Est Cr Clr Drug Dosing Est GFR ( Amer) Est GFR (Non-Af Amer) BUN/Creatinine Ratio Glucose POC Glucose Calcium Phosphorus Total Creatine Kinase Albumin Current Inpatient Medications Current Inpatient Medications: Current Inpatient Medications Acetaminophen (Tylenol) 650 mg PO Q4H PRN PRN Reason: Headache or Minor Fever Stop: 04/29/19 19:02 Last Admin: 04/13/19 04:30 Dose: 650 mg Documented by: Al Hydrox/Mg Hydrox/Simethicone (Maalox) 30 ml PO Q4H PRN PRN Reason: GI Upset Stop: 04/29/19 19:02 Bismuth Subsalicylate (Kaopectate) 15 ml PO PRN PRN PRN Reason: Loose Stool Stop: 04/29/19 19:02 Clonazepam (Klonopin) 0.5 mg PO TID PRN PRN Reason: Anxiety Stop: 05/15/19 15:26 Last Admin: 04/17/19 07:49 Dose: 0.5 mg Documented by: Clonidine HCl (Catapres) 0.1 mg PO Q4H PRN PRN Reason: Hypertension Stop: 05/11/19 09:16 Last Admin: 04/15/19 06:56 Dose: 0.1 mg Documented by: Haloperidol (Haldol) 1 mg PO Q4 PRN PRN Reason: Anxiety/Agitation Stop: 05/17/19 14:16 Lisinopril (Zestril) 15 mg PO BID PILI Stop: 05/11/19 08:59 Last Admin: 04/17/19 07:48 Dose: 15 mg Documented by: Magnesium Hydroxide (Milk Of Magnesia) 30 ml PO DAILY PRN PRN Reason: Heartburn Stop: 04/29/19 19:02 Last Admin: 04/11/19 13:23 Dose: 30 ml Documented by: Mirtazapine (Remeron) 30 mg PO HS PILI Stop: 05/05/19 21:59 Last Admin: 04/16/19 20:48 Dose: 30 mg Documented by: Olanzapine (Zyprexa) 10 mg PO HS PILI Stop: 05/17/19 21:59 Last Admin: 04/17/19 21:08 Dose: Not Given Documented by: Sertraline HCl (Zoloft) 200 mg PO QAM PILI Stop: 05/17/19 08:59 Last Admin: 04/17/19 07:48 Dose: 200 mg Documented by: Sodium Chloride ([place] Nasal) 1 - 2 sprays NA PRN PRN PRN Reason: Nasal Dryness/Congestion Stop: 04/29/19 19:02 Zolpidem Tartrate (Ambien) 5 mg PO HS PRN PRN Reason: Sleep Stop: 05/17/19 21:07 Mental Health & Subst Abuse Tx Psychiatrist Name of Psychiatrist: [facility] Carey Astudillo Psychiatrist's Date of Appointment with Psychiatrist: 04/20/19 Time of Appointment with Psychiatrist: 2:00 p.m. Psychiatric Appointment Comment: [address] [place] [address] Therapist Name of Therapist: DEYSI Petersen Therapist's Date of Therapist Appointment: 04/19/19 Time of Therapist Appointment: 1:30 p.m. Therapy Appointment Comment: [address] [place] [address] Post Discharge Appointments Primary Care Physician Name Of Family Doctor: [facility] - Dr. Ayala [facility] Date of Appointment with PCP: 04/25/19 Time of Appointment with PCP: 10:30 a.m. Provider Appointment Comment: [address], [address], [place] [address] Contact Information Discharge Discharge Address: [address] [place] [id number]
[2019-04-17 22:48] LABS: Appearance Urine Clear (Clear); Bacteria Urine Automated Negative (Negative); Bilirubin Urine Negative (Negative); Blood Urine Negative (Negative); Cast Urine Automated 0 /lpf (0-5); Color Urine Yellow; Glucose Urine UA Negative (Negative); Ketones Urine Negative (Negative); Leukocyte Esterase Urine 1+ (Negative); Nitrite Urine Negative (Negative); Protein Urine Negative (Negative); RBC Urine Automated 0-4 /hpf (0-4); Specific Gravity Urine 1.016 (1.000-1.030); Urobilinogen Urine Negative (Negative)
[2019-04-18] MEDS: clonazePAM 0.5 MG TAB PO PRN ×2 (07:36→13:36)
[2019-04-18] MEDS: LISINOPRIL 10 MG TAB PO SCH ×2 (07:37→21:39)
[2019-04-18] MEDS: SERTRALINE HCL 100 MG TABLET PO SCH (07:38)
[2019-04-18 08:21] LABS: Basophils # (auto) 0.04 K/uL (0-0.2); Basophils % (auto) 0.8 %; Eosinophils # (auto) 0.08 K/uL (0-0.5); Eosinophils % (auto) 1.6 %; Hematocrit (blood only) 34.1 % (37-47); Hemoglobin 11.7 g/dL (12.0-16.0); Immature Granulocytes # (auto) 0.02 K/uL (0.00-0.02); Immature Granulocytes % (auto) 0.4 %; Lymphocytes # (auto) 0.93 K/uL (1.2-3.4); Lymphocytes % (auto) 18.1 %; Mean Corpuscular Hgb Conc 34.3 g/dL (32-36); Mean Corpuscular Volume 90.2 fL (80-100); Mean Platelet Volume 8.9 fL (7.4-10.4); Monocytes # (auto) 0.45 K/uL (0.11-0.59); Monocytes % (auto) 8.8 %; Neutrophils # (auto) 3.62 K/uL (1.4-6.5); Neutrophils % (auto) 70.3 %; Platelet Count 254 K/uL (130-400); RDW Coefficient of Variation 13.4 % (11.5-14.5); RDW Standard Deviation 43.9 fL (36.4-46.3); Red Blood Count 3.78 M/uL (4.2-5.4); White Blood Count 5.14 K/uL (4.8-10.8)
[2019-04-18 08:41] LABS: Albumin Level 3.2 gm/dl (3.4-5.0); BUN Creatinine Ratio 26.5 (10-20); Creatinine Clr Calc Pharmacy 79.8 ml/min; Est GFR (African American) 110.7; Est GFR (Non-African American) 95.5; Potassium 3.9 mmol/L (3.5-5.1)
[2019-04-18 08:46] LABS: Phosphorus 3.3 mg/dl (2.5-4.9)
--- NOTE | 2019-04-18 10:13 | Psychiatric Progress Note ---
Date of Service April 18, 2019 Impression / Recommendations Impression 73-year-old female with a history of bipolar 1 and generalized anxiety disorder who was admitted voluntarily with severe, debilitating anxiety, depression, and inability to function. She had electrolyte abnormalities on presentation due to poor p.o. intake, was not sleeping, performing ADLs or getting out of bed at home. She has lost weight, and is cognitively impaired, and a limited historian. She has had multiple medication adjustments to target her anxiety and depressive symptoms. Her care is complex due to bipolar type I with history of freedom, trying to utilize medications to target anxiety while avoiding activation/freedom and akathisia. Ongoing medication adjustments are being pursued to target these concerns, as well as episodes of EPS. Patient has been more open about intrusive thoughts she has been experiencing for several months prior to her admission. She is extremely distressed by these homicidal thoughts towards her and family, and denies intent to act on them. In patient treatment is medically necessary and remains the least restrictive option until patient is better able to demonstrate an ability to function in the outpatient setting. (1) Bipolar 1 disorder: (1) Bipolar 1 disorder: 03/31 -current episode depressed with severe anxiety. -Clarify home med list, as there are some discrepancies (external medication history shows that she filled #30 olanzapine 10 mg tablets and hydroxyzine 25 mg tablets on 03/18/2019, but admission medication reconciliation indicates olanzapine 15 mg every afternoon and hydralazine 25 mg every afternoon). Nursing staff to call her and clarify this: Patient is not prescribed hydralazine, will remove medication. She did receive a dose last night, and blood pressure this morning was elevated 163/89, but on repeat 124/71. -Increase sertraline to 100 mg daily to target mood and anxiety, and watch for activation/mood stabilization. -It is unclear if her home dose of olanzapine is 10 or 15 mg; she received 15 mg last night, and I am concerned for EPS given her cogwheeling on exam and severe restlessness. Order benztropine 0.5 mg as needed, and reduce olanzapine to 10 milligrams at bedtime. Per she was only on 10mg olanzapine at home. May need to reduce dose further or switch to another antipsychotic if EPS does not improve. -Fasting lipid profile and glucose performed on 09/30/2018 for monitoring on an atypical antipsychotic, and were within normal limits. 04/01 -Contributing to the patient's severe anxiety may be akathisia associated wi th olanzapine and, possibly, sertraline. I have advised the patient accordingly, and she accepts my recommendation for a standing dose of Artane (trihexyphenidyl) -Patient otherwise indicates that she feels that she has been tolerating olanzapine well, and reports that she feels this medication has been helpful to her. -The patient's dose of sertraline has been increased to 100 mg daily 04/02 -Patient more unsteady today. Will hold any further doses of diphenhydramine for now. She does not have any cogwheeling; once she is able to relax the paratonia disappears -Patient now on moderate dose of SSRI. Reviewed she had been manic at last presentation. Considering Remeron trial which may help with restlessness and anxiety and allow for reduction of some of the anticholinergic medication she has been started on however patient appeared overwhelmed when attempting to discuss today and will defer for reconsideration tomorrow -patient refused physical therapy referral for imbalance today 04/04 - Continue current medication regimen, consider titration of mirtazapine with observation for activation 04/05 - Titrating mirtazapine to 30mg this evening - continue to monitor for possi ble activation and triggering of manic symptoms - Once efficacy is apparent, consider tapering sertraline to achieve antidepressant monotherapy - Continue remainder of medication regimen unchanged 04/06 - Patient reports mood and restlessness are slightly improved. - Worsening tachycardia with heart rate as high as 130, with worsening after Artane was started. As this medication can cause tachycardia, will decrease it to 1 mg twice daily. 04/07 -Tachycardia has resolved with lowered Artane dose. Restlessness is improved. 04/08 -While the patient's restlessness has improved, today, she continues to complain of restlessness and, on testing, demonstrates persistent cogwheeling. Currently, we will offer the patient a trial of diphenhydramine 12.5 mg twice a day. The target of diphenhydramine in this case is the patient's EPS, but we are also hopeful that it will aid in managing the patient's anxiety. -The patient is complaining of persistent anxiety and intrusive, ego dystonic thoughts that she tells me she is embarrassed to discuss. I offered the patient reassurances in this regard. -The patient reports that she is not having suicidal thoughts. 04/09 - 04/10 - Continue current medication regimen, reportedly demonstrating improvement 04/11 - Titrating sertraline to 150mg daily, continue remainder of current medication regimen 04/12 - Continue plan as above 04/13 - Titrating sertraline to 175mg daily, continue remainder of medication regimen for now - Pt reporting significant distress from intrusive thoughts - consider alternative options to reduce distress. Did not tolerate 15 mg dose of olanzapine due to EPS, but could consider split dosing 5 mg / 10 mg. Could also consider retrial of risperidone, or alternative agents. 04/14 - Reviewed medication options above with the patient, who does not desire to change atypical antipsychotic medications at this time. She was agreeable to titrating the dose to 5mg qAM and 10mg qHS. - Continue to monitor for EPS as dose is titrated 04/15 -I again spoke with the patient about possibly changing her antipsychotic, mood stabilizing medication from olanzapine to risperidone. The patient says that she feels fairly strongly that she would prefer to remain on olanzapine because she feels that it does help stabilize her mood. -While the patient does endorse feelings of depression, she tells us that the depression seems to be following her anxiety and distress regarding a series of alien, intrusive ego dystonic thoughts that she has great difficulty dismissing. 04/16--now willing to start Risperdal so d/c hs dose of Zyprexa and replace with Risperdal 1 mg. Reassess in am for cross taper. 04/17--not tolerating Risperdal 1 mg due to orthostasis. Reassess for restart of Zyprexa this hs vs prn Haldol. (2) Generalized anxiety disorder: 03/31 -patient extremely anxious, with negative, ruminative thoughts, and severe restlessness. -Increase sertraline as above. -At home dose of hydroxyzine 25 mg at bedtime, and offer 25 mg every 4 hours as needed anxiety. -Continue clonazepam 0.5 mg every morning, and add 0.5 mg dose twice daily as needed if hydroxyzine an effective, but monitor for unsteadiness and oversedation. 04/01/19 -As noted above, some of the patient's anxious distress may be secondary to eps side effects (akathisia). -On examination, the patient does have cogwheel rigidity. However, she tells me that she feels that she is somewhat less anxious and notes that the medications for her anxiety "may be helping." 04/02 -Patient remains highly anxious. Considered alternative options for bedtime hydroxyzine to reduce anticholinergic burden. Elected to trial the Remeron at 15 mg p.o. nightly which may help off label for feelings of restlessness. Hopefully this will also help to reduce her anxiety and provide some appetite stimulation but will need to watch for mood cycling in combination with the sertraline. If she does well with this agent, could consider using it as antidepressant monotherapy (tapering her off the Zoloft) 04/04 - Continue current medication regimen - consider increase or mirtazapine and possible taper of sertraline as outlined above; wanting to ensure tolerance prior to switching to mirtazapine as monotherapy 04/05 - Titrating mirtazapine to 30mg this evening; will continue sertraline at 100mg until efficacy of mirtazapine can be determined - Continue remainder of medication regimen unchanged 04/08 -As above, we are increasing her dose of sertraline to a dose of 125 mg daily to treat anxiety and depression. We will continue olanzapine to serve as a mood stabilizer given the patient's diagnosis of bipolar disorder. -Also as noted above, we have added diphenhydramine 12.5 mg twice a day for extraparametal side effects, persistent) EPS, and we will discontinue Artane. Hopefully, diphenhydramine will help not only with extraparametal side effects but, also, with the patient's generalized anxiety. -The patient's standing dose of clonazepam has been increased from 0.5 mg in the morning to 0.5 mg 3 times a day. She will also have available to her as needed clonazepam. Material risks and anticipated benefits of clonazepam have been reviewed with the patient, and it has been explained that this is not expected to be a long-term intervention but, instead, is being used to help bring the patient's anxiety under better control so that she can more fruitful he participate in the treatment on the. 04/09 - Continue current medication regimen; consider need for further titration of sertraline to 150mg daily - Patient appearing less restless/anxious, though she describes her symptoms to be unchanged 04/10 - Continue current medication regimen; consider titration of sertraline as above - pt limited in willingness to discuss multiple changes today - Patient's appearance is improving, though she reports limited changes in her condition 04/11 - Titrate sertraline to 150mg daily. Pt reporting daytime sedation, can consider possible reduction of prns at some point, when she begins to be more effective - Pt reporting mild improvements in anxiety 04/12 - Continue sertraline 150mg daily - In attempt to reduce sedation, but maintain progress with reducing anxiety/restlessness - will titrate diphenhydramine to 25mg daily (this will also allow for medication in capsule form, which patient prefers). Will discontinue scheduled TID clonazepam, but leave available prn dosing should patient require it during the day for anxiety or other concerns. - Staff also reporting apneic episodes observed at night; reducing reliance on benzodiazepines will be ideal as will reduce additional risk for respiratory concerns - Continue to encourage development of healthy and effective coping strategies 04/13 - Titrating sertraline to 175mg daily - Continue remainder of medication regimen as above - Pt has been more open about intrusive homicidal thoughts, distressing, with no intent to act. Pt is very disturbed by these thoughts - Patient unwilling for additional medication adjustments today; however, could consider titration of olanzapine. Patient did experience significant EPS when she received a 15 mg dose early in her admission. Consider split dosing - 5mg/10mg - Also consider retrial for risperidone (beneficial on last admission), possibly as prn and then scheduled in place of olanzapine if effective. Can also consider trial of another atypical antipsychotic which may better target concerns. 04/14 - Continue medication adjustments as above - olanzapine 5mg qAM and 10mg qHS 04/15 -The patient's anxiety symptoms seem to be a combination of anxious distress associated with ego-dystonic intrusive thoughts, as well as restlessness associated with extraparametal side effects from her medications. -She has tolerated an increase in her dose of diphenhydramine from 12.5 mg to 25 mg without excess sedation, and she tells us that she much prefers this because she did not like the taste of liquid diphenhydramine. -We are beginning clonazepam 0.5 mg up to 3 times a day as needed for anxiety. The patient has a past history of favorable response to this medication. Material risks, including, but not limited to excess sedation, increased risk of accident, increased risk for falls, physical habituation with complicated withdrawal that may may be fatal and can include seizures, and cognitive impairment. The patient indicates understanding and notes that she has had no problems taking the clonazepam in the past. (2) Orthostatic dizziness: started 04/17, repeat labs and monitor sodium. Risk Factors Assessment Male: No : Yes Do You Have Access To A Gun?: Yes ( has guns that are locked) Health Problems: Yes Mental Health Diagnoses: Yes Substance Use Disorders: No Previous Attempt: No Family History of Suicide: No Previous Psychiatric Hospitalization: Yes Hopelessness: Yes Smoker: No Protective Factors Assessment : Yes Responsible for Young Children: No Employed: No Supportive Family: Yes Good Rapport with Provider: Yes Interval History Identifying Information VALENTINA CLARK is a 73-year-old F who currently lives in [place] with her , has a history of bipolar disorder type I and generalized anxiety disorder, and was admitted on 03/30/19 19:35 on a 201 voluntary commitment for severe anxiety and inability to function. Chief Complaint "I'm sick of all this". Review of Systems Sleep Information Total Hours of Sleep: 6.75 Sleep Comments: snores softly. to the bathroom at 0515 to void then back to bed. her walking gait was noted to be stable. she told me how dizzy she had been yesterday. Meal Information Percent Meal Consumed - Breakfast: 25 Percent Meal Consumed - Lunch: 75 Percent Meal Consumed - Dinner: 25 Nutrition Comment: Bites Subjective Subjective Patient was seen & assessed and interval progress reviewed with nursing. See interim note re: dehydration. Labs this am slightly improved though Na 132, patient previously with hyponatremia. States she will refuse power kristopher as too sweet even if mixed with water. Denies that poor PO intake has anything to do with her delusions. Blurry vision resolved. Now more fearful to get up as worries she[place]. Unclear how much of urinary retention is due to anxiety vs resolving anticholinergic side effects. Physical Exam Psychiatric Orientation: alert and oriented x 3 Apperance: appropriately groomed Eye Contact: + fair eye contact Motor Behavior: steady gait and station Speech: + abnormal rate/rhythm/volume of speech quiet Affect: + blunted affect Mood: + depressed mood and + anxious mood Thought Process: + perseveration Thought Content: + delusions Suicidal Thoughts: denies suicidal thoughts Homicidal Thoughts: denies homicidal thoughts Hallucinations: + auditory hallucinations Cognition: language grossly intact Insight: + limited insight Judgement: + limited judgement Vital Signs (Past 24 Hours) Last Vital Signs Temp 36.5 C 04/18/19 06:35 Pulse 93 H 04/18/19 06:36 Resp 20 04/18/19 06:35 BP 158/83 H 04/18/19 06:36 Pulse Ox 97 04/11/19 06:46 Results & Data Laboratory Results Laboratory Results - last 24 hr 04/17/19 04/17/19 04/17/19 20:09 20:29 20:29 WBC 6.48 RBC 3.71 L Hgb 11.8 L Hct 33.8 L MCV 91.1 MCH 31.8 MCHC 34.9 RDW Std Deviation 44.2 RDW Coeff of [place] 13.3 Plt Count 291 MPV 9.1 Immature Gran % (Auto) 0.5 Neut % (Auto) 63.4 Lymph % (Auto) 22.8 [place] % (Auto) 9.9 Eos % (Auto) 2.6 Baso % (Auto) 0.8 Immature Gran # (Auto) 0.03 H Neut # (Auto) 4.11 Lymph # (Auto) 1.48 [place] # (Auto) 0.64 H Eos # (Auto) 0.17 Baso # (Auto) 0.05 Sodium 133 L Potassium 4.2 Chloride 99 Carbon Dioxide 28 Anion Gap 6.0 BUN 20 H Creatinine 0.63 Est Cr Clr Drug Dosing 67.1 Est GFR ( Amer) 104.6 Est GFR (Non-Af Amer) 90.2 BUN/Creatinine Ratio 32.2 H Glucose 105 H POC Glucose 108 H Calcium 8.9 Phosphorus 4.0 Total Creatine Kinase 32 Albumin 3.1 L Urine Color Urine Appearance Urine pH Ur Specific [place] Urine Protein Urine Glucose (UA) Urine Ketones Urine Blood Urine Nitrite Urine Bilirubin Urine Urobilinogen Ur Leukocyte Esterase Urine WBC (Auto) Urine RBC (Auto) U Hyaline Cast (Auto) U Epithel Cells (Auto) Urine Bacteria (Auto) 04/17/19 04/17/19 04/18/19 20:29 Unknown 08:02 WBC 5.14 RBC 3.78 L Hgb 11.7 L Hct 34.1 L MCV 90.2 MCH 31.0 MCHC 34.3 RDW Std Deviation 43.9 RDW Coeff of [place] 13.4 Plt Count 254 MPV 8.9 Immature Gran % (Auto) 0.4 Neut % (Auto) 70.3 Lymph % (Auto) 18.1 [place] % (Auto) 8.8 Eos % (Auto) 1.6 Baso % (Auto) 0.8 Immature Gran # (Auto) 0.02 Neut # (Auto) 3.62 Lymph # (Auto) 0.93 L [place] # (Auto) 0.45 Eos # (Auto) 0.08 Baso # (Auto) 0.04 Sodium 133 L Potassium 4.3 Chloride 99 Carbon Dioxide 28 Anion Gap 7.0 BUN Creatinine Est Cr Clr Drug Dosing Est GFR ( Amer) Est GFR (Non-Af Amer) BUN/Creatinine Ratio Glucose POC Glucose Calcium Phosphorus Total Creatine Kinase Albumin Urine Color Yellow Urine Appearance Clear Urine pH 6.0 Ur Specific [place] 1.016 Urine Protein Negative Urine Glucose (UA) Negative Urine Ketones Negative Urine Blood Negative Urine Nitrite Negative Urine Bilirubin Negative Urine Urobilinogen Negative Ur Leukocyte Esterase 1+ H Urine WBC (Auto) 1-5 Urine RBC (Auto) 0-4 U Hyaline Cast (Auto) 0 U Epithel Cells (Auto) 10-20 H Urine Bacteria (Auto) Negative 04/18/19 08:02 WBC RBC Hgb Hct MCV MCH MCHC RDW Std Deviation RDW Coeff of [place] Plt Count MPV Immature Gran % (Auto) Neut % (Auto) Lymph % (Auto) [place] % (Auto) Eos % (Auto) Baso % (Auto) Immature Gran # (Auto) Neut # (Auto) Lymph # (Auto) [place] # (Auto) Eos # (Auto) Baso # (Auto) Sodium 132 L Potassium 3.9 Chloride 98 Carbon Dioxide 27 Anion Gap 7.0 BUN 14 Creatinine 0.53 L Est Cr Clr Drug Dosing 79.8 Est GFR ( Amer) 110.7 Est GFR (Non-Af Amer) 95.5 BUN/Creatinine Ratio 26.5 H Glucose 108 H POC Glucose Calcium 9.0 Phosphorus 3.3 Total Creatine Kinase Albumin 3.2 L Urine Color Urine Appearance Urine pH Ur Specific [place] Urine Protein Urine Glucose (UA) Urine Ketones Urine Blood Urine Nitrite Urine Bilirubin Urine Urobilinogen Ur Leukocyte Esterase Urine WBC (Auto) Urine RBC (Auto) U Hyaline Cast (Auto) U Epithel Cells (Auto) Urine Bacteria (Auto) Current Inpatient Medications Current Inpatient Medications: Current Inpatient Medications Acetaminophen (Tylenol) 650 mg PO Q4H PRN PRN Reason: Headache or Minor Fever Stop: 04/29/19 19:02 Last Admin: 04/13/19 04:30 Dose: 650 mg Documented by: Al Hydrox/Mg Hydrox/Simethicone (Maalox) 30 ml PO Q4H PRN PRN Reason: GI Upset Stop: 04/29/19 19:02 Bismuth Subsalicylate (Kaopectate) 15 ml PO PRN PRN PRN Reason: Loose Stool Stop: 04/29/19 19:02 Clonazepam (Klonopin) 0.5 mg PO TID PRN PRN Reason: Anxiety Stop: 05/15/19 15:26 Last Admin: 04/18/19 07:36 Dose: 0.5 mg Documented by: Clonidine HCl (Catapres) 0.1 mg PO Q4H PRN PRN Reason: Hypertension Stop: 05/11/19 09:16 Last Admin: 04/15/19 06:56 Dose: 0.1 mg Documented by: Haloperidol (Haldol) 1 mg PO Q4 PRN PRN Reason: Anxiety/Agitation Stop: 05/17/19 14:16 Lisinopril (Zestril) 15 mg PO BID PILI Stop: 05/11/19 08:59 Last Admin: 04/18/19 07:37 Dose: 15 mg Documented by: Magnesium Hydroxide (Milk Of Magnesia) 30 ml PO DAILY PRN PRN Reason: Heartburn Stop: 04/29/19 19:02 Last Admin: 04/11/19 13:23 Dose: 30 ml Documented by: Mirtazapine (Remeron) 30 mg PO HS PILI Stop: 05/05/19 21:59 Last Admin: 04/17/19 21:19 Dose: 30 mg Documented by: Olanzapine (Zyprexa) 10 mg PO HS PILI Stop: 05/17/19 21:59 Last Admin: 04/17/19 21:08 Dose: Not Given Documented by: Sertraline HCl (Zoloft) 200 mg PO QAM PILI Stop: 05/17/19 08:59 Last Admin: 04/18/19 07:38 Dose: 200 mg Documented by: Sodium Chloride ([place] Nasal) 1 - 2 sprays NA PRN PRN PRN Reason: Nasal Dryness/Congestion Stop: 04/29/19 19:02 Zolpidem Tartrate (Ambien) 5 mg PO HS PRN PRN Reason: Sleep Stop: 05/17/19 21:07 Last Admin: 04/17/19 21:19 Dose: 5 mg Documented by: Mental Health & Subst Abuse Tx Psychiatrist Name of Psychiatrist: DEYSI Astudillo Psychiatrist's Date of Appointment with Psychiatrist: 04/20/19 Time of Appointment with Psychiatrist: 2:00 p.m. Psychiatric Appointment Comment: [address] [place] [address] Therapist Name of Therapist: DEYSI Petersen Therapist's Date of Therapist Appointment: 04/19/19 Time of Therapist Appointment: 1:30 p.m. Therapy Appointment Comment: [address] [place] [place] [address] Post Discharge Appointments Primary Care Physician Name Of Family Doctor: [facility] - [facility]. Ay[facility] Date of Appointment with PCP: 04/25/19 Time of Appointment with PCP: 10:30 a.m. Provider Appointment Comment: [address], [address], [place] [address] Contact Information Discharge Discharge [address]: [address] [place] [id number] CPT Code CPT Code [id number]
[2019-04-18] MEDS: OLANZapine 10 MG TAB PO SCH (21:39)
[2019-04-18] MEDS: MIRTAZAPINE TAB 15 MG TAB PO SCH (21:39)
[2019-04-19] MEDS: LISINOPRIL 10 MG TAB PO SCH ×2 (07:28→20:56)
[2019-04-19] MEDS: clonazePAM 0.5 MG TAB PO PRN (07:29)
[2019-04-19] MEDS: SERTRALINE HCL 100 MG TABLET PO SCH (07:29)
[2019-04-19 08:46] LABS: Albumin Level 3.2 gm/dl (3.4-5.0); BUN Creatinine Ratio 25.6 (10-20); Calcium 8.9 mg/dl (8.5-10.1); Creatinine Clr Calc Pharmacy 81.3 ml/min; Est GFR (African American) 111.4; Est GFR (Non-African American) 96.1; Phosphorus 3.3 mg/dl (2.5-4.9)
--- NOTE | 2019-04-19 10:42 | Psychiatric Progress Note ---
Date of Service April 19, 2019 Impression / Recommendations Impression 73-year-old female with a history of bipolar 1 and generalized anxiety disorder who was admitted voluntarily with severe, debilitating anxiety, depression, and inability to function. She had electrolyte abnormalities on presentation due to poor p.o. intake, was not sleeping, performing ADLs or getting out of bed at home. She has lost weight, is cognitively impaired, and a limited historian. Her care is complex due to bipolar type I with history of freedom, trying to utilize medications to target anxiety while avoiding activation/freedom and akathisia. Ongoing medication adjustments are being pursue d to target these concerns, as well as episodes of EPS. Patient has been more open about intrusive thoughts she has been experiencing for several months prior to her admission. She is extremely distressed by these homicidal thoughts towards her and family, and denies intent to act on them. Inpatient treatment is medically necessary and remains the least restrictive option she is unable to provide for her own basic needs without the care and assistance of others. She is eating very little, is not sleeping adequately, continues to ruminate on intrusive ego dystonic thoughts of harming others. She does not feel safe to leave the hospital, and is not appropriate for outpatient care due to the severity of her symptoms. (1) Bipolar 1 disorder: (1) Bipolar 1 disorder: 03/31 -current episode depressed with severe anxiety. -Clarify home med list, as there are some discrepancies (external medication history shows that she filled #30 olanzapine 10 mg tablets and hydroxyzine 25 mg tablets on 03/18/2019, but admission medication reconciliation indicates olanzapine 15 mg every afternoon and hydralazine 25 mg every afternoon). [facility] staff to call her and clarify this: Patient is not prescribed hydralazine, will remove medication. She did receive a dose last night, and blood pressure this morning was elevated 163/89, but on repeat 124/71. -Increase sertraline to 100 mg daily to target mood and anxiety, and watch for activation/mood stabilization. -It is unclear if her home dose of olanzapine is 10 or 15 mg; she received 15 mg last night, and I am concerned for EPS given her cogwheeling on exam and severe restlessness. Order benztropine 0.5 mg as needed, and reduce olanzapine to 10 milligrams at bedtime. Per she was only on 10mg olanzapine at home. May need to reduce dose further or switch to another antipsychotic if EPS does not improve. -Fasting lipid profile and glucose performed on 09/30/2018 for monitoring on an atypical antipsychotic, and were within normal limits. 04/01 -Contributing to the patient's severe anxiety may be akathisia associated with olanzapine and, possibly, sertraline. I have advised the patient accordingly, and she accepts my recommendation for a standing dose of Artane (trihexyphenidyl) -Patient otherwise indicates that she feels that she has been tolerating o lanzapine well, and reports that she feels this medication has been helpful to her. -The patient's dose of sertraline has been increased to 100 mg daily 04/02 -Patient more unsteady today. Will hold any further doses of diphenhydramine for now. She does not have any cogwheeling; once she is able to relax the paratonia disappears -Patient now on moderate dose of SSRI. Reviewed she had been manic at last presentation. Considering Remeron trial which may help with restlessness and anxiety and allow for reduction of some of the anticholinergic medication she has been started on however patient appeared overwhelmed when attempting to discuss today and will defer for reconsideration tomorrow -patient refused physical therapy referral for imbalance today 04/04 - Continue current medication regimen, consider titration of mirtazapine with observation for activation 04/05 - Titrating mirtazapine to 30mg this evening - continue to monitor for possible activation and triggering of manic symptoms - Once efficacy is apparent, consider tapering sertraline to achieve antidepressant monotherapy - Continue remainder of medication regimen unchanged 04/06 - Patient reports mood and restlessness are slightly improved. - Worsening tachycardia with heart rate as high as 130, with worsening after Artane was started. As this medication can cause tachycardia, will decrease it to 1 mg twice daily. 04/07 -Tachycardia has resolved with lowered Artane dose. Restlessness is improved. 04/08 -While the patient's restlessness has improved, today, she continues to complain of restlessness and, on testing, demonstrates persistent cogwheeling. Currently, we will offer the patient a trial of diphenhydramine 12.5 mg twice a day. The target of diphenhydramine in this case is the patient's EPS, but we are also hopeful that it will aid in managing the patient's anxiety. -The patient is complaining of persistent anxiety and intrusive, ego dystonic thoughts that she tells me she is embarrassed to discuss. I offered the patient reassurances in this regard. -The patient reports that she is not having suicidal thoughts. 04/09 - 04/10 - Continue current medication regimen, reportedly demonstrating improvement 04/11 - Titrating sertraline to 150mg daily, continue remainder of current medication regimen 04/12 - Continue plan as above 04/13 - Titrating sertraline to 175mg daily, continue remainder of medication regimen for now - Pt reporting significant distress from intrusive thoughts - consider alternative options to reduce distress. Did not tolerate 15 mg dose of olanza pine due to EPS, but could consider split dosing 5 mg / 10 mg. Could also consider retrial of risperidone, or alternative agents. 04/14 - Reviewed medication options above with the patient, who does not desire to change atypical antipsychotic medications at this time. She was agreeable to titrating the dose to 5mg qAM and 10mg qHS. - Continue to monitor for EPS as dose is titrated 04/15 -I again spoke with the patient about possibly changing her antipsychotic, mood stabilizing medication from olanzapine to risperidone. The patient says that she feels fairly strongly that she would prefer to remain on olanzapine because she feels that it does help stabilize her mood. -While the patient does endorse feelings of depression, she tells us that the depression seems to be following her anxiety and distress regarding a series of alien, intrusive ego dystonic thoughts that she has great difficulty dismissing. 04/16--now willing to start Risperdal so d/c hs dose of Zyprexa and replace with Risperdal 1 mg. Reassess in am for cross taper. 04/17--not tolerating Risperdal 1 mg due to orthostasis. Reassess for restart of Zyprexa this hs vs prn Haldol. (2) Generalized anxiety disorder: 03/31 -patient extremely anxious, with negative, ruminative thoughts, and severe restlessness. -Increase sertraline as above. -At home dose of hydroxyzine 25 mg at bedtime, and offer 25 mg every 4 hours as needed anxiety. -Continue clonazepam 0.5 mg every morning, and add 0.5 mg dose twice daily as needed if hydroxyzine an effective, but monitor for unsteadiness and oversedation. 04/01/19 -As noted above, some of the patient's anxious distress may be secondary to eps side effects (akathisia). -On examination, the patient does have cogwheel rigidity. However, she tells me that she feels that she is somewhat less anxious and notes that the medications for her anxiety "may be helping." 04/02 -Patient remains highly anxious. Considered alternative options for bedtime hydroxyzine to reduce anticholinergic burden. Elected to trial the Remeron at 15 mg p.o. nightly which may help off label for feelings of restlessness. Hopefully this will also help to reduce her anxiety and provide some appetite stimulation but will need to watch for mood cycling in combination with the sertraline. If she does well with this agent, could consider using it as antidepressant monotherapy (tapering her off the Zoloft) 04/04 - Continue current medication regimen - consider increase or mirtazapine and possible taper of sertraline as outlined above; wanting to ensure tolerance prior to switching to mirtazapine as monotherapy 04/05 - Titrating mirtazapine to 30mg this evening; will continue sertraline at 100mg until efficacy of mirtazapine can be determined - Continue remainder of medication regimen unchanged 04/08 -As above, we are increasing her dose of sertraline to a dose of 125 mg daily to treat anxiety and depression. We will continue olanzapine to serve as a mood stabilizer given the patient's diagnosis of bipolar disorder. -Also as noted above, we have added diphenhydramine 12.5 mg twice a day for extraparametal side effects, persistent) EPS, and we will discontinue Artane. Hopefully, diphenhydramine will help not only with extraparametal side effects but, also, with the patient's generalized anxiety. -The patient's standing dose of clonazepam has been increased from 0.5 mg in the morning to 0.5 mg 3 times a day. She will also have available to her as needed clonazepam. Material risks and anticipated benefits of clonazepam have been reviewed with the patient, and it has been explained that this is not expected to be a long-term intervention but, instead, is being used to help bring the patient's anxiety under better control so that she can more fruitful he participate in the treatment on the. 04/09 - Continue current medication regimen; consider need for further titration of sertraline to 150mg daily - Patient appearing less restless/anxious, though she describes her symptoms to be unchanged 04/10 - Continue current medication regimen; consider titration of sertraline as above - pt limited in willingness to discuss multiple changes today - Patient's appearance is improving, though she reports limited changes in her condition 04/11 - Titrate sertraline to 150mg daily. Pt reporting daytime sedation, can consider possible reduction of prns at some point, when she begins to be more effective - Pt reporting mild improvements in anxiety 04/12 - Continue sertraline 150mg daily - In attempt to reduce sedation, but maintain progress with reducing anxiety/restlessness - will titrate diphenhydramine to 25mg daily (this will also allow for medication in capsule form, which patient prefers). Will discontinue scheduled TID clonazepam, but leave available prn dosing should patient require it during the day for anxiety or other concerns. - Staff also reporting apneic episodes observed at night; reducing reliance on benzodiazepines will be ideal as will reduce additional risk for respiratory concerns - Continue to encourage development of healthy and effective coping strategies 04/13 - Titrating sertraline to 175mg daily - Continue remainder of medication regimen as above - Pt has been more open about intrusive homicidal thoughts, distressing, with no intent to act. Pt is very disturbed by these thoughts - Patient unwilling for additional medication adjustments today; however, could consider titration of olanzapine. Patient did experience significant EPS when she received a 15 mg dose early in her admission. Consider split dosing - 5mg/10mg - Also consider retrial for risperidone (beneficial on last admission), possibly as prn and then scheduled in place of olanzapine if effective. Can also consider trial of another atypical antipsychotic which may better target concerns. 04/14 - Continue medication adjustments as above - olanzapine 5mg qAM and 10mg qHS 04/15 -The patient's anxiety symptoms seem to be a combination of anxious distress associated with ego-dystonic intrusive thoughts, as well as restlessness associated with extrapyramidal side effects from her medications. -She has tolerated an increase in her dose of diphenhydramine from 12.5 mg to 25 mg without excess sedation, and she tells us that she much prefers this because she did not like the taste of liquid diphenhydramine. -We are beginning clonazepam 0.5 mg up to 3 times a day as needed for anxiety. The patient has a past history of favorable response to this medication. Material risks, including, but not limited to excess sedation, increased risk of accident, increased risk for falls, physical habituation with complicated withdrawal that may may be fatal and can include seizures, and cognitive impairment. The patient indicates understanding and notes that she has had no problems taking the clonazepam in the past. 04/19 -Diphenhydramine discontinued over the weekend due to anticholinergic side effects. Continue olanzapine 10 mg daily. She has haloperidol 1 mg every 4 hours as needed which she has not yet received. -Continue sertraline 200 mg daily and mirtazapine 30 mg at bedtime. (2) Orthostatic dizziness: started 04/17, repeat labs and monitor sodium (133). 04/18 -BMP notable for hyponatremia with sodium of 132. 04/19 -dizziness resolved, normotensive. Sodium 133. Encourage fluid intake. Risk Factors Assessment Male: No : Yes Do You Have Access To A Gun?: Yes ( has guns that are locked) Health Problems: Yes Mental Health Diagnoses: Yes Substance Use Disorders: No Previous Attempt: No Family History of Suicide: No Previous Psychiatric Hospitalization: Yes Hopelessness: Yes Smoker: No Protective Factors Assessment : Yes Responsible for Young Children: No Employed: No Supportive Family: Yes Good Rapport with Provider: Yes Interval History Identifying Information VALENTINA CLARK is a 73-year-old F who currently lives in [place] with her , has a history of bipolar disorder type I and generalized anxiety disorder, and was admitted on 03/30/19 19:35 on a 201 voluntary commitment for severe anxiety and inability to function. Chief Complaint "Not so good". Review of Systems Notes Denies GI symptoms, including constipation, diarrhea, nausea, vomiting. Denies lightheadedness, dizziness, palpitations, chest pain, and tightness. Sleep Information Total Hours of Sleep: 8.5 Sleep Comments: pt appeared to sleep 1.5 hr during evening shift. pt on q-15 minute checks Meal Information Percent Meal Consumed - Breakfast: 50 Percent Meal Consumed - Lunch: 15 Percent Meal Consumed - Dinner: 25 Nutrition Comment: pt. reports poor appetite Subjective Subjective Patient was seen & assessed and interval progress reviewed with treatment team. Staff report the patient had a difficult weekend, was not able to attend groups due to her level of distress, was ruminative and anxious, and was requesting and receiving clonazepam 3 times a day. She was dehydrated, and was encouraged to drink fluids. She has had multiple medication adjustments recently; initially on admission sertraline, mirtazapine, and olanzapine were titrated. She had severe restlessness and cogwheeling, unclear if due to akathisia or anxiety, and had trials of benztropine, trihexyphenidyl, and diphenhydramine. As olanzapine did not appear overly effective, it was switched to risperidone, which was discontinued after 1 day due to orthostatic hypotension. She was resumed on olanzapine 10 mg at bedtime 2 days ago, diphenhydramine was discontinued due to anticholinergic side effects, and is now on therapeutic doses of sertraline and mirtazapine. On my assessment today, the patient reports she felt poorly over the weekend, with dizziness that has now resolved, but feels "worn out." Sleep remains poor, does not think she is getting enough and feels tired in the morning. She is spending all day in bed, but says she cannot nap, and just ruminating on negative thoughts. Appetite is poor and she is not eating very much, and energy is low. Mood is "terrible," and rates it a 1 out of 10. She reports ongoing intrusive, ego dystonic, disturbing thoughts which she describes as "terrible, filthy thoughts, don't even want to open my mouth." She does not want to discuss them further, stating she is embarrassed. She declines every suggestion for ways to help her management thoughts, including adjustments to medication, going to groups ("as the chairs are too hard"), talking to others ("I don't want to talk"), engaging in activities such as games ("I am not good at games"), and reading or coloring ("can't focus"). She feels that "nothing will help me." Physical Exam Psychiatric Orientation: alert and cooperative Apperance: appropriately dressed Thin female appearing her stated age, limited grooming and hygiene. Lying in bed in no acute distress. Eye Contact: + poor eye contact Stares at the ceiling, avoids eye contact, at times closes her eyes. Motor Behavior: no abnormal motor movements Affect: + depressed affect, + anxious affect, + constricted affect and mood congruent with affect Mood: + depressed mood and + anxious mood Thought Process: + perseveration Thought Content: + preoccupation Patient reports intrusive, unwanted thoughts that she describes as "terrible, filthy thoughts." She will not discuss the contents further. Suicidal Thoughts: denies suicidal thoughts Homicidal Thoughts: denies homicidal thoughts Hallucinations: no auditory hallucinations But describes ruminations that are so intrusive she is unable to focus on anything else. Cognition: language grossly intact; + recent memory not intact and + attention not intact Insight: + impaired insight Judgement: + impaired judgement Vital Signs (Past 24 Hours) Last Vital Signs Temp 36.6 C 04/19/19 06:59 Pulse 123 H 04/19/19 07:01 Resp 20 04/19/19 06:59 BP 126/87 04/19/19 07:01 Pulse Ox 97 04/11/19 06:46 Results & Data Laboratory Results Laboratory Results - last 24 hr 04/19/19 07:59 Sodium 133 L Potassium 4.0 Chloride 98 Carbon Dioxide 30 Anion Gap 5.0 BUN 13 Creatinine 0.52 L Est Cr Clr Drug Dosing 81.3 Est GFR ( Amer) 111.4 Est GFR (Non-Af Amer) 96.1 BUN/Creatinine Ratio 25.6 H Glucose 102 H Calcium 8.9 Phosphorus 3.3 Albumin 3.2 L Current Inpatient Medications Current Inpatient Medications: Current Inpatient Medications Acetaminophen (Tylenol) 650 mg PO Q4H PRN PRN Reason: Headache or Minor Fever Stop: 04/29/19 19:02 Last Admin: 04/13/19 04:30 Dose: 650 mg Documented by: Al Hydrox/Mg Hydrox/Simethicone (Maalox) 30 ml PO Q4H PRN PRN Reason: GI Upset Stop: 04/29/19 19:02 Bismuth Subsalicylate (Kaopectate) 15 ml PO PRN PRN PRN Reason: Loose Stool Stop: 04/29/19 19:02 Clonazepam (Klonopin) 0.5 mg PO TID PRN PRN Reason: Anxiety Stop: 05/15/19 15:26 Last Admin: 04/19/19 07:29 Dose: 0.5 mg Documented by: Clonidine HCl (Catapres) 0.1 mg PO Q4H PRN PRN Reason: Hypertension Stop: 05/11/19 09:16 Last Admin: 04/15/19 06:56 Dose: 0.1 mg Documented by: Haloperidol (Haldol) 1 mg PO Q4 PRN PRN Reason: Anxiety/Agitation Stop: 05/17/19 14:16 Lisinopril (Zestril) 15 mg PO BID PILI Stop: 05/11/19 08:59 Last Admin: 04/19/19 07:28 Dose: 15 mg Documented by: Magnesium Hydroxide (Milk Of Magnesia) 30 ml PO DAILY PRN PRN Reason: Heartburn Stop: 04/29/19 19:02 Last Admin: 04/11/19 13:23 Dose: 30 ml Documented by: Mirtazapine (Remeron) 30 mg PO HS PILI Stop: 05/05/19 21:59 Last Admin: 04/18/19 21:39 Dose: 30 mg Documented by: Olanzapine (Zyprexa) 10 mg PO HS PILI Stop: 05/17/19 21:59 Last Admin: 04/18/19 21:39 Dose: 10 mg Documented by: Sertraline HCl (Zoloft) 200 mg PO QAM [facility] Stop: 05/17/19 08:59 Last Admin: 04/19/19 07:29 Dose: 200 mg Documented by: Sodium Chloride ([place] Nasal) 1 - 2 sprays NA PRN PRN PRN Reason: Nasal Dryness/Congestion Stop: 04/29/19 19:02 Zolpidem Tartrate (Ambien) 5 mg PO HS PRN PRN Reason: Sleep Stop: 05/17/19 21:07 Last Admin: 04/17/19 21:19 Dose: 5 mg Documented by: Mental Health & Subst Abuse Tx Psychiatrist Name of Psychiatrist: DEYSI Astudillo Psychiatrist's Date of Appointment with Psychiatrist: 04/20/19 Time of Appointment with Psychiatrist: 2:00 p.m. Psychiatric Appointment Comment: [address] [facility], [place] [address] Therapist Name of Therapist: DEYSI Petersen Therapist's Date of Therapist Appointment: 04/19/19 Time of Therapist Appointment: 1:30 p.m. Therapy Appointment Comment: [address] [facility], [place] [address] Post Discharge Appointments Primary Care Physician Name Of Family Doctor: [facility] - Dr. Ay[facility] Date of Appointment with PCP: 04/25/19 Time of Appointment with PCP: 10:30 a.m. Provider Appointment Comment: [address], [address], [place] [address] Contact Information Discharge Discharge Address: [address] [place] [id number] CPT Code CPT Code 49317
[2019-04-19] MEDS: HALOPERIDOL 1 MG TAB PO PRN ×2 (15:31→20:56)
[2019-04-19] MEDS: OLANZapine 10 MG TAB PO SCH (20:55)
[2019-04-19] MEDS: MIRTAZAPINE TAB 15 MG TAB PO SCH (20:56)
[2019-04-20] MEDS: HALOPERIDOL 1 MG TAB PO PRN ×3 (07:54→16:15)
[2019-04-20] MEDS: LISINOPRIL 10 MG TAB PO SCH ×2 (07:54→21:26)
[2019-04-20] MEDS: SERTRALINE HCL 100 MG TABLET PO SCH (07:55)
[2019-04-20] MEDS: clonazePAM 0.5 MG TAB PO PRN (08:23)
--- NOTE | 2019-04-20 08:37 | Psychiatric Progress Note ---
Date of Service April 20, 2019 Impression / Recommendations Impression 73-year-old female with a history of bipolar 1 and generalized anxiety disorder who was admitted voluntarily with severe, debilitating anxiety, depression, and inability to function. She had electrolyte abnormalities on presentation due to poor p.o. intake, was not sleeping, performing ADLs or getting out of bed at home. She has lost weight, is cognitively impaired, and a limited historian. Her care is complex due to bipolar type I with history of freedom, trying to utilize medications to target anxiety while avoiding activation/freedom and akathisia. Ongoing medication adjustments are being pursue d to target these concerns, as well as episodes of EPS. Patient has been more open about intrusive thoughts she has been experiencing for several months prior to her admission. She is extremely distressed by these homicidal thoughts towards her and family, and denies intent to act on them. Inpatient treatment is medically necessary and remains the least restrictive option she is unable to provide for her own basic needs without the care and assistance of others. She is eating very little, is not sleeping adequately, continues to ruminate on intrusive ego dystonic thoughts of harming others. She has been so distraught by thoughts that she has not been participating in groups or therapy, does not feel safe to leave the hospital, and is not appropriate for outpatient care due to the severity of her symptoms. She has had numerous medication adjustments and changes, due to inefficacy or intolerability of multiple agents. (1) Bipolar 1 disorder: (1) Bipolar 1 disorder: 03/31 -current episode depressed with severe anxiety. -Clarify home med list, as there are some discrepancies (external medication history shows that she filled #30 olanzapine 10 mg tablets and hydroxyzine 25 mg tablets on 03/18/2019, but admission medication reconciliation indicates olanzapine 15 mg every afternoon and hydralazine 25 mg every afternoon). Nursing staff to call her and clarify this: Patient is not prescribed hydralazine, will remove medication. She did receive a dose last night, and blood pressure this morning was elevated 163/89, but on repeat 124/71. -Increase sertraline to 100 mg daily to target mood and anxiety, and watch for activation/mood stabilization. -It is unclear if her home dose of olanzapine is 10 or 15 mg; she received 15 mg last night, and I am concerned for EPS given her cogwheeling on exam and severe restlessness. Order benztropine 0.5 mg as needed, and reduce olanzapine to 10 milligrams at bedtime. Per she was only on 10mg olanzapine at home. May need to reduce dose further or switch to another antipsychotic if EPS does not improve. -Fasting lipid profile and glucose performed on 09/30/2018 for monitoring on an atypical antipsychotic, and were within normal limits. 04/01 -Contributing to the patient's severe anxiety may be akathisia associated with olanzapine and, possibly, sertraline. I have advised the patient accordingly, and she accepts my recommendation for a standing dose of Artane (trihexyphenidyl) -Patient otherwise indicates that she feels that she has been tolerating olanzapine well, and reports that she feels this medication has been helpful to her. -The patient's dose of sertraline has been increased to 100 mg daily 04/02 -Patient more unsteady today. Will hold any further doses of diphenhydramine for now. She does not have any cogwheeling; once she is able to relax the paratonia disappears -Patient now on moderate dose of SSRI. Reviewed she had been manic at last presentation. Considering Remeron trial which may help with restlessness and anxiety and allow for reduction of some of the anticholinergic medication she has been started on however patient appeared overwhelmed when attempting to discuss today and will defer for reconsideration tomorrow -patient refused physical therapy referral for imbalance today 04/04 - Continue current medication regimen, consider titration of mirtazapine with observation for activation 04/05 - Titrating mirtazapine to 30mg this evening - continue to monitor for possible activation and triggering of manic symptoms - Once efficacy is apparent, consider tapering sertraline to achieve antidepressant monotherapy - Continue remainder of medication regimen unchanged 04/06 - Patient reports mood and restlessness are slightly improved. - Worsening tachycardia with heart rate as high as 130, with worsening after Artane was started. As this medication can cause tachycardia, will decrease it to 1 mg twice daily. 04/07 -Tachycardia has resolved with lowered Artane dose. Restlessness is improved. 04/08 -While the patient's restlessness has improved, today, she continues to complain of restlessness and, on testing, demonstrates persistent cogwheeling. Currently, we will offer the patient a trial of diphenhydramine 12.5 mg twice a day. The target of diphenhydramine in this case is the patient's EPS, but we are also hopeful that it will aid in managing the patient's anxiety. -The patient is complaining of persistent anxiety and intrusive, ego dystonic thoughts that she tells me she is embarrassed to discuss. I offered the patient reassurances in this regard. -The patient reports that she is not having suicidal thoughts. 04/09 - 04/10 - Continue current medication regimen, reportedly demonstrating improvement 04/11 - Titrating sertraline to 150mg daily, continue remainder of current medication regimen 04/12 - Continue plan as above 04/13 - Titrating sertraline to 175mg daily, continue remainder of medication regimen for now - Pt reporting significant distress from intrusive thoughts - consider alternative options to reduce distress. Did not tolerate 15 mg dose of olanzapine due to EPS, but could consider split dosing 5 mg / 10 mg. Could also consider retrial of risperidone, or alternative agents. 04/14 - Reviewed medication options above with the patient, who does not desire to change atypical antipsychotic medications at this time. She was agreeable to titrating the dose to 5mg qAM and 10mg qHS. - Continue to monitor for EPS as dose is titrated 04/15 -I again spoke with the patient about possibly changing her antipsychotic, mood stabilizing medication from olanzapine to risperidone. The patient says that she feels fairly strongly that she would prefer to remain on olanzapine because she feels that it does help stabilize her mood. -While the patient does endorse feelings of depression, she tells us that the depression seems to be following her anxiety and distress regarding a series of alien, intrusive ego dystonic thoughts that she has great difficulty dismissing. 04/16--now willing to start Risperdal so d/c hs dose of Zyprexa and replace with Risperdal 1 mg. Reassess in am for cross taper. 04/17--not tolerating Risperdal 1 mg due to orthostasis. Reassess for restart of Zyprexa this hs vs prn Haldol. (2) Generalized anxiety disorder: 03/31 -patient extremely anxious, with negative, ruminative thoughts, and severe restlessness. -Increase sertraline as above. -At home dose of hydroxyzine 25 mg at bedtime, and offer 25 mg every 4 hours as needed anxiety. -Continue clonazepam 0.5 mg every morning, and add 0.5 mg dose twice daily as needed if hydroxyzine an effective, but monitor for unsteadiness and oversedation. 04/01/19 -As noted above, some of the patient's anxious distress may be secondary to eps side effects (akathisia). -On examination, the patient does have cogwheel rigidity. However, she tells me that she feels that she is somewhat less anxious and notes that the medications for her anxiety "may be helping." 04/02 -Patient remains highly anxious. Considered alternative options for bedtime hydroxyzine to reduce anticholinergic burden. Elected to trial the Remeron at 15 mg p.o. nightly which may help off label for feelings of restlessness. Hopefully this will also help to reduce her anxiety and provide some appetite stimulation but will need to watch for mood cycling in combination with the sertraline. If she does well with this agent, could consider using it as antidepressant monotherapy (tapering her off the Zoloft) 04/04 - Continue current medication regimen - consider increase or mirtazapine and possible taper of sertraline as outlined above; wanting to ensure tolerance prior to switching to mirtazapine as monotherapy 04/05 - Titrating mirtazapine to 30mg this evening; will continue sertraline at 100mg until efficacy of mirtazapine can be determined - Continue remainder of medication regimen unchanged 04/08 -As above, we are increasing her dose of sertraline to a dose of 125 mg daily to treat anxiety and depression. We will continue olanzapine to serve as a mood stabilizer given the patient's diagnosis of bipolar disorder. -Also as noted above, we have added diphenhydramine 12.5 mg twice a day for extraparametal side effects, persistent) EPS, and we will discontinue Artane. Hopefully, diphenhydramine will help not only with extraparametal side effects but, also, with the patient's generalized anxiety. -The patient's standing dose of clonazepam has been increased from 0.5 mg in the morning to 0.5 mg 3 times a day. She will also have available to her as needed clonazepam. Material risks and anticipated benefits of clonazepam have been reviewed with the patient, and it has been explained that this is not expected to be a long-term intervention but, instead, is being used to help bring the patient's anxiety under better control so that she can more fruitful he participate in the treatment on the. 04/09 - Continue current medication regimen; consider need for further titration of sertraline to 150mg daily - Patient appearing less restless/anxious, though she describes her symptoms to be unchanged 04/10 - Continue current medication regimen; consider titration of sertraline as above - pt limited in willingness to discuss multiple changes today - Patient's appearance is improving, though she reports limited changes in her condition 04/11 - Titrate sertraline to 150mg daily. Pt reporting daytime sedation, can consider possible reduction of prns at some point, when she begins to be more effective - Pt reporting mild improvements in anxiety 04/12 - Continue sertraline 150mg daily - In attempt to reduce sedation, but maintain progress with reducing anxiety/restlessness - will titrate diphenhydramine to 25mg daily (this will also allow for medication in capsule form, which patient prefers). Will discontinue scheduled TID clonazepam, but leave available prn dosing should patient require it during the day for anxiety or other concerns. - Staff also reporting apneic episodes observed at night; reducing reliance on benzodiazepines will be ideal as will reduce additional risk for respiratory concerns - Continue to encourage development of healthy and effective coping strategies 04/13 - Titrating sertraline to 175mg daily - Continue remainder of medication regimen as above - Pt has been more open about intrusive homicidal thoughts, distressing, with no intent to act. Pt is very disturbed by these thoughts - Patient unwilling for additional medication adjustments today; however, could consider titration of olanzapine. Patient did experience significant EPS when she received a 15 mg dose early in her admission. Consider split dosing - 5mg/10mg - Also consider retrial for risperidone (beneficial on last admission), possibly as prn and then scheduled in place of olanzapine if effective. Can also consider trial of another atypical antipsychotic which may better target concerns. 04/14 - Continue medication adjustments as above - olanzapine 5mg qAM and 10mg qHS 04/15 -The patient's anxiety symptoms seem to be a combination of anxious distress associated with ego-dystonic intrusive thoughts, as well as restlessness associated with extrapyramidal side effects from her medications. -She has tolerated an increase in her dose of diphenhydramine from 12.5 mg to 25 mg without excess sedation, and she tells us that she much prefers this because she did not like the taste of liquid diphenhydramine. -We are beginning clonazepam 0.5 mg up to 3 times a day as needed for anxiety. The patient has a past history of favorable response to this medication. Material risks, including, but not limited to excess sedation, increased risk of accident, increased risk for falls, physical habituation with complicated withdrawal that may may be fatal and can include seizures, and cognitive impairment. The patient indicates understanding and notes that she has had no problems taking the clonazepam in the past. 04/19 -Diphenhydramine discontinued over the weekend due to anticholinergic side effects. Continue olanzapine 10 mg daily. She has haloperidol 1 mg every 4 hours as needed which she has not yet received. -Continue sertraline 200 mg daily and mirtazapine 30 mg at bedtime. 04/20 -Patient is received several doses of haloperidol 1 mg which has been helpful, and that she is tolerating it well, will increase to 2 mg every 4 hours as needed. If this is effective, can cross taper from olanzapine to haloperidol. -Continue to encourage patient to be out of her room and active during the day, even if unable to tolerate full groups; continued assistance for ADLs. (2) Orthostatic dizziness: started 04/17, repeat labs and monitor sodium (133). 04/18 -BMP notable for hyponatremia with sodium of 132. 04/19 -dizziness resolved, normotensive. Sodium 133. Encourage fluid intake. Risk Factors Assessment Male: No : Yes Do You Have Access To A Gun?: Yes ( has guns that are locked) Health Problems: Yes Mental Health Diagnoses: Yes Substance Use Disorders: No Previous Attempt: No Family History of Suicide: No Previous Psychiatric Hospitalization: Yes Hopelessness: Yes Smoker: No Protective Factors Assessment : Yes Responsible for Young Children: No Employed: No Supportive Family: Yes Good Rapport with Provider: Yes Interval History Identifying Information VALENTINA CLARK is a 73-year-old F who currently lives in [place] with her , has a history of bipolar disorder type I and generalized anxiety di sorder, and was admitted on 08/14/19 19:35 on a 201 voluntary commitment for severe anxiety and inability to function. Chief Complaint "I don't feel up to it". Review of Systems Sleep Information Total Hours of Sleep: 5 Sleep Comments: pt awoke x1 @ 0445 to the bathroom. pt appeared to be asleep at this time. pt on q-15 minute checks Meal Information Percent Meal Consumed - Breakfast: 50 Percent Meal Consumed - Lunch: 50 Percent Meal Consumed - Dinner: 25 Nutrition Comment: pt. reports poor appetite Subjective Subjective Patient was seen & assessed and interval progress reviewed with treatment team. Staff report she remained in her room in bed all day yesterday, refusing all groups and a visit from her , which upset him as it is unusual. She initially denied dizziness, but then felt unsteady when she stood with staff assistance. She remained upset and ruminating on "negative thoughts." She is not eating much but is drinking with good urine output. She got 2 doses of haloperidol 1mg yesterday and one dose this morning. On my assessment, she states she does not want to get out of bed to come to the interview room, she does not feel able to. She states that the thoughts are "terrible, filthy," and that she cannot focus on anything else. She does not want to come out of her room or participate in treatment, stating "I need to be alone right now." She does not want to discuss the thoughts, stating they are too terrible to describe. She does think the Haldol has been helpful, but only briefly, and is willing to take a higher dose. She denies any side effects. Physical Exam Psychiatric Orientation: alert and cooperative (Partially, O refuses to answer some questions, and will not get out of bed.) Apperance: appropriately dressed Thin, limited hygiene and grooming. Lying in bed in no acute distress. Eye Contact: + poor eye contact Motor Behavior: no abnormal motor movements Minimal speech. Affect: + depressed affect, + anxious affect and + constricted affect "Terrible." Thought Process: goal directed thought process Thought Content: + preoccupation Distressing intrusive thoughts that she will not discuss in detail. Suicidal Thoughts: denies suicidal thoughts Has reported to staff that she has intrusive thoughts to harm others, but will not discuss them today. Hallucinations: no auditory hallucinations and no visual hallucinations Cognition: attention grossly intact and language grossly intact Insight: + impaired insight Judgement: + impaired judgement Vital Signs (Past 24 Hours) Last Vital Signs Temp 36.6 C 04/20/19 06:56 Pulse 112 H 04/20/19 06:58 Resp 20 04/20/19 06:56 BP 149/88 H 04/20/19 06:58 Pulse Ox 97 04/11/19 06:46 Results & Data Laboratory Results Laboratory Results - last 24 hr 04/19/19 07:59 Sodium 133 L Potassium 4.0 Chloride 98 Carbon Dioxide 30 Anion Gap 5.0 BUN 13 Creatinine 0.52 L Est Cr Clr Drug Dosing 81.3 Est GFR ( Amer) 111.4 Est GFR (Non-Af Amer) 96.1 BUN/Creatinine Ratio 25.6 H Glucose 102 H Calcium 8.9 Phosphorus 3.3 Albumin 3.2 L Current Inpatient Medications Current Inpatient Medications: Current Inpatient Medications Acetaminophen (Tylenol) 650 mg PO Q4H PRN PRN Reason: Headache or Minor Fever Stop: 04/29/19 19:02 Last Admin: 04/13/19 04:30 Dose: 650 mg Documented by: Al Hydrox/Mg Hydrox/Simethicone (Maalox) 30 ml PO Q4H PRN PRN Reason: GI Upset Stop: 04/29/19 19:02 Bismuth Subsalicylate (Kaopectate) 15 ml PO PRN PRN PRN Reason: Loose Stool Stop: 04/29/19 19:02 Clonazepam (Klonopin) 0.5 mg PO TID PRN PRN Reason: Anxiety Stop: 05/15/19 15:26 Last Admin: 04/20/19 08:23 Dose: 0.5 mg Documented by: Clonidine HCl (Catapres) 0.1 mg PO Q4H PRN PRN Reason: Hypertension Stop: 05/11/19 09:16 Last Admin: 04/15/19 06:56 Dose: 0.1 mg Documented by: Haloperidol (Haldol) 1 mg PO Q4 PRN PRN Reason: Anxiety/Agitation Stop: 05/17/19 14:16 Last Admin: 04/20/19 07:54 Dose: 1 mg Documented by: Lisinopril (Zestril) 15 mg PO BID PILI Stop: 05/11/19 08:59 Last Admin: 04/20/19 07:54 Dose: 15 mg Documented by: Magnesium Hydroxide (Milk Of Magnesia) 30 ml PO DAILY PRN PRN Reason: Heartburn Stop: 04/29/19 19:02 Last Admin: 04/11/19 13:23 Dose: 30 ml Documented by: Mirtazapine (Remeron) 30 mg PO HS PILI Stop: 05/05/19 21:59 Last Admin: 04/19/19 20:56 Dose: 30 mg Documented by: Olanzapine (Zyprexa) 10 mg PO HS PILI Stop: 05/17/19 21:59 Last Admin: 04/19/19 20:55 Dose: 10 mg Documented by: Sertraline HCl (Zoloft) 200 mg PO QAM PILI Stop: 05/17/19 08:59 Last Admin: 04/20/19 07:55 Dose: 200 mg Documented by: Sodium Chloride ([place] Nasal) 1 - 2 sprays NA PRN PRN PRN Reason: Nasal Dryness/Congestion Stop: 04/29/19 19:02 Zolpidem Tartrate (Ambien) 5 mg PO HS PRN PRN Reason: Sleep Stop: 05/17/19 21:07 Last Admin: 04/17/19 21:19 Dose: 5 mg Documented by: Mental Health & Subst Abuse Tx Psychiatrist Name of Psychiatrist: BENJAMIN Carey Astudillo Psychiatrist's Date of Appointment with Psychiatrist: 04/20/19 Time of Appointment with Psychiatrist: 2:00 p.m. Psychiatric Appointment Comment: [address] [facility] [place] [address] Therapist Name of Therapist: DEYSI Petersen Therapist's Date of Therapist Appointment: 04/19/19 Time of Therapist Appointment: 1:30 p.m. Therapy Appointment Comment: [address] [facility] [place] [address] Post Discharge Appointments Primary Care Physician Name Of Family Doctor: [facility] - Dr. Ay[facility] Date of Appointment with PCP: 04/25/19 Time of Appointment with PCP: 10:30 a.m. Provider Appointment Comment: [address], [address], [place] [address] Contact Information Discharge Discharge Address: [address] [place] [id number] CPT Code CPT Code 56821
[2019-04-20] MEDS: MIRTAZAPINE TAB 15 MG TAB PO SCH (21:27)
[2019-04-20] MEDS: OLANZapine 10 MG TAB PO SCH (21:28)
[2019-04-20] MEDS: ZOLPIDEM TARTRATE 5 MG TAB PO PRN (23:36)
[2019-04-21] MEDS: LISINOPRIL 10 MG TAB PO SCH ×2 (07:28→21:15)
[2019-04-21] MEDS: SERTRALINE HCL 100 MG TABLET PO SCH (07:29)
[2019-04-21] MEDS: HALOPERIDOL 1 MG TAB PO PRN (07:32)
--- NOTE | 2019-04-21 08:56 | Psychiatric Progress Note ---
Date of Service April 21, 2019 Impression / Recommendations Impression 73-year-old female with a history of bipolar 1 and generalized anxiety disorder who was admitted voluntarily with severe, debilitating anxiety, depression, and inability to function. She had electrolyte abnormalities on presentation due to poor p.o. intake, was not sleeping, performing ADLs or getting out of bed at home. She has lost weight, is cognitively impaired, and a limited historian. Her care is complex due to bipolar type I with history of freedom, trying to utilize medications to target anxiety while avoiding activation/freedom and akathisia. Ongoing medication adjustments are being pursue d to target these concerns, as well as episodes of EPS. Patient has been more open about intrusive thoughts she has been experiencing for several months prior to her admission. She is extremely distressed by these homicidal thoughts towards her and family, and denies intent to act on them. Inpatient treatment is medically necessary and remains the least restrictive option she is unable to provide for her own basic needs without the care and assistance of others. She is eating very little, is not sleeping adequately, continues to ruminate on intrusive ego dystonic thoughts of harming others. She has been so distraught by thoughts that she has not been participating in groups or therapy, does not feel safe to leave the hospital, and is not appropriate for outpatient care due to the severity of her symptoms. She has had numerous medication adjustments and changes, due to inefficacy or intolerability of multiple agents. She has decompensated over the past few days physically, has not been getting out of bed or participating in treatment, and has had episodes of excessive sweating, shaking, and dizziness when she stands. We are trying to limits her medications given the risk of side effects, and olanzapine has now been stopped. We have requested a medical consult for any assistance or insight they can provide. (1) Bipolar 1 disorder: (1) Bipolar 1 disorder: 03/31 -current episode depressed with severe anxiety. -Clarify home med list, as there are some discrepancies (external medication history shows that she filled #30 olanzapine 10 mg tablets and hydroxyzine 25 mg tablets on 03/18/2019, but admission medication reconciliation indicates olanzapine 15 mg every afternoon and hydralazine 25 mg every afternoon). Nursing staff to call her and clarify this: Patient is not prescribed hydralazine, will remove medication. She did receive a dose last night, and blood pressure this morning was elevated 163/89, but on repeat 124/71. -Increase sertraline to 100 mg daily to target mood and anxiety, and watch for activation/mood stabilization. -It is unclear if her home dose of olanzapine is 10 or 15 mg; she received 15 mg last night, and I am concerned for EPS given her cogwheeling on exam and severe restlessness. Order benztropine 0.5 mg as needed, and reduce olanzapine to 10 milligrams at bedtime. Per she was only on 10mg olanzapine at home. May need to reduce dose further or switch to another antipsychotic if EPS does not improve. -Fasting lipid profile and glucose performed on 09/30/2018 for monitoring on an atypical antipsychotic, and were within normal limits. 04/01 -Contributing to the patient's severe anxiety may be akathisia associated with olanzapine and, possibly, sertraline. I have advised the patient accordingly, and she accepts my recommendation for a standing dose of Artane (trihexyphenidyl) -Patient otherwise indicates that she feels that she has been tolerating olanzapine well, and reports that she feels this medication has been helpful to her. -The patient's dose of sertraline has been increased to 100 mg daily 04/02 -Patient more unsteady today. Will hold any further doses of diphenhydramine for now. She does not have any cogwheeling; once she is able to relax the paratonia disappears -Patient now on moderate dose of SSRI. Reviewed she had been manic at last presentation. Considering Remeron trial which may help with restlessness and anxiety and allow for reduction of some of the anticholinergic medication she has been started on however patient appeared overwhelmed when attempting to discuss today and will defer for reconsideration tomorrow -patient refused physical therapy referral for imbalance today 04/04 - Continue current medication regimen, consider titration of mirtazapine with observation for activation 04/05 - Titrating mirtazapine to 30mg this evening - continue to monitor for possible activation and triggering of manic symptoms - Once efficacy is apparent, consider tapering sertraline to achieve antidepressant monotherapy - Continue remainder of medication regimen unchanged 04/06 - Patient reports mood and restlessness are slightly improved. - Worsening tachycardia with heart rate as high as 130, with worsening after Artane was started. As this medication can cause tachycardia, will decrease it to 1 mg twice daily. 04/07 -Tachycardia has resolved with lowered Artane dose. Restlessness is improved. 04/08 -While the patient's restlessness has improved, today, she continues to complain of restlessness and, on testing, demonstrates persistent cogwheeling. Currently, we will offer the patient a trial of diphenhydramine 12.5 mg twice a day. The target of diphenhydramine in this case is the patient's EPS, but we are also hopeful that it will aid in managing the patient's anxiety. -The patient is complaining of persistent anxiety and intrusive, ego dystonic thoughts that she tells me she is embarrassed to discuss. I offered the patient reassurances in this regard. -The patient reports that she is not having suicidal thoughts. 04/09 - 04/10 - Continue current medication regimen, reportedly demonstrating improvement 04/11 - Titrating sertraline to 150mg daily, continue remainder of current medication regimen 04/12 - Continue plan as above 04/13 - Titrating sertraline to 175mg daily, continue remainder of medication regimen for now - Pt reporting significant distress from intrusive thoughts - consider alternative options to reduce distress. Did not tolerate 15 mg dose of olanzapine due to EPS, but could consider split dosing 5 mg / 10 mg. Could also consider retrial of risperidone, or alternative agents. 04/14 - Reviewed medication options above with the patient, who does not desire to change atypical antipsychotic medications at this time. She was agreeable to titrating the dose to 5mg qAM and 10mg qHS. - Continue to monitor for EPS as dose is titrated 04/15 -I again spoke with the patient about possibly changing her antipsychotic, mood stabilizing medication from olanzapine to risperidone. The patient says that she feels fairly strongly that she would prefer to remain on olanzapine because she feels that it does help stabilize her mood. -While the patient does endorse feelings of depression, she tells us that the depression seems to be following her anxiety and distress regarding a series of alien, intrusive ego dystonic thoughts that she has great difficulty dismissing. 04/16--now willing to start Risperdal so d/c hs dose of Zyprexa and replace with Risperdal 1 mg. Reassess in am for cross taper. 04/17--not tolerating Risperdal 1 mg due to orthostasis. Reassess for restart of Zyprexa this hs vs prn Haldol. (2) Generalized anxiety disorder: 03/31 -patient extremely anxious, with negative, ruminative thoughts, and severe restlessness. -Increase sertraline as above. -At home dose of hydroxyzine 25 mg at bedtime, and offer 25 mg every 4 hours as needed anxiety. -Continue clonazepam 0.5 mg every morning, and add 0.5 mg dose twice daily as needed if hydroxyzine an effective, but monitor for unsteadiness and oversedation. 04/01/19 -As noted above, some of the patient's anxious distress may be secondary to eps side effects (akathisia). -On examination, the patient does have cogwheel rigidity. However, she tells me that she feels that she is somewhat less anxious and notes that the medications for her anxiety "may be helping." 04/02 -Patient remains highly anxious. Considered alternative options for bedtime hydroxyzine to reduce anticholinergic burden. Elected to trial the Remeron at 15 mg p.o. nightly which may help off label for feelings of restlessness. Hopefully this will also help to reduce her anxiety and provide some appetite stimulation but will need to watch for mood cycling in combination with the sertraline. If she does well with this agent, could consider using it as antidepressant monotherapy (tapering her off the Zoloft) 04/04 - Continue current medication regimen - consider increase or mirtazapine and possible taper of sertraline as outlined above; wanting to ensure tolerance prior to switching to mirtazapine as monotherapy 04/05 - Titrating mirtazapine to 30mg this evening; will continue sertraline at 100mg until efficacy of mirtazapine can be determined - Continue remainder of medication regimen unchanged 04/08 -As above, we are increasing her dose of sertraline to a dose of 125 mg daily to treat anxiety and depression. We will continue olanzapine to serve as a mood stabilizer given the patient's diagnosis of bipolar disorder. -Also as noted above, we have added diphenhydramine 12.5 mg twice a day for extraparametal side effects, persistent) EPS, and we will discontinue Artane. Hopefully, diphenhydramine will help not only with extraparametal side effects but, also, with the patient's generalized anxiety. -The patient's standing dose of clonazepam has been increased from 0.5 mg in the morning to 0.5 mg 3 times a day. She will also have available to her as needed clonazepam. Material risks and anticipated benefits of clonazepam have been reviewed with the patient, and it has been explained that this is not expected to be a long-term intervention but, instead, is being used to help bring the patient's anxiety under better control so that she can more fruitful he participate in the treatment on the. 04/09 - Continue current medication regimen; consider need for further titration of sertraline to 150mg daily - Patient appearing less restless/anxious, though she describes her symptoms to be unchanged 04/10 - Continue current medication regimen; consider titration of sertraline as above - pt limited in willingness to discuss multiple changes today - Patient's appearance is improving, though she reports limited changes in her condition 04/11 - Titrate sertraline to 150mg daily. Pt reporting daytime sedation, can consider possible reduction of prns at some point, when she begins to be more effective - Pt reporting mild improvements in anxiety 04/12 - Continue sertraline 150mg daily - In attempt to reduce sedation, but maintain progress with reducing anxiety/restlessness - will titrate diphenhydramine to 25mg daily (this will also allow for medication in capsule form, which patient prefers). Will discontinue scheduled TID clonazepam, but leave available prn dosing should patient require it during the day for anxiety or other concerns. - Staff also reporting apneic episodes observed at night; reducing reliance on benzodiazepines will be ideal as will reduce additional risk for respiratory concerns - Continue to encourage development of healthy and effective coping strategies 04/13 - Titrating sertraline to 175mg daily - Continue remainder of medication regimen as above - Pt has been more open about intrusive homicidal thoughts, distressing, with no intent to act. Pt is very disturbed by these thoughts - Patient unwilling for additional medication adjustments today; however, could consider titration of olanzapine. Patient did experience significant EPS when she received a 15 mg dose early in her admission. Consider split dosing - 5mg/10mg - Also consider retrial for risperidone (beneficial on last admission), possibly as prn and then scheduled in place of olanzapine if effective. Can also consider trial of another atypical antipsychotic which may better target concerns. 04/14 - Continue medication adjustments as above - olanzapine 5mg qAM and 10mg qHS 04/15 -The patient's anxiety symptoms seem to be a combination of anxious distress associated with ego-dystonic intrusive thoughts, as well as restlessness associated with extrapyramidal side effects from her medications. -She has tolerated an increase in her dose of diphenhydramine from 12.5 mg to 25 mg without excess sedation, and she tells us that she much prefers this because she did not like the taste of liquid diphenhydramine. -We are beginning clonazepam 0.5 mg up to 3 times a day as needed for anxiety. The patient has a past history of favorable response to this medication. Material risks, including, but not limited to excess sedation, increased risk of accident, increased risk for falls, physical habituation with complicated withdrawal that may may be fatal and can include seizures, and cognitive impairment. The patient indicates understanding and notes that she has had no problems taking the clonazepam in the past. 04/19 -Diphenhydramine discontinued over the weekend due to anticholinergic side effects. Continue olanzapine 10 mg daily. She has haloperidol 1 mg every 4 hours as needed which she has not yet received. -Continue sertraline 200 mg daily and mirtazapine 30 mg at bedtime. 04/20 -Patient is received several doses of haloperidol 1 mg which has been helpful, and that she is tolerating it well, will increase to 2 mg every 4 hours as needed. If this is effective, can cross taper from olanzapine to haloperidol. -Continue to encourage patient to be out of her room and active during the day, even if unable to tolerate full groups; continued assistance for ADLs. 04/21 -Discontinue olanzapine as has not been effective and due to concern for extrapyramidal symptoms. Continue haloperidol and schedule 2mg 3 times daily, with an as needed dose as well. (2) Orthostatic dizziness: started 04/17, repeat labs and monitor sodium (133). 04/18 -BMP notable for hyponatremia with sodium of 132. 04/19 -dizziness resolved, normotensive. Sodium 133. Encourage fluid intake. (3) Sweating abnormality: 04/21 -patient has had multiple episodes over the past few days of excessive sweating, found to be drenched in sweat and tremulous. She has been drinking excessively at times, but other times with poor oral intake. Her sodium has been slightly low. Today she is hypertensive and tachycardic. Will consult the hospitalist service for assistance and to rule out any medical contributors to her current state; reviewed with Dr. Nielsen, and appreciate any recommendations.. Present on Admission?: Yes Risk Factors Assessment Male: No : Yes Do You Have Access To A Gun?: Yes ( has guns that are locked) Health Problems: Yes Mental Health Diagnoses: Yes Substance Use Disorders: No Previous Attempt: No Family History of Suicide: No Previous Psychiatric Hospitalization: Yes Hopelessness: Yes Smoker: No Protective Factors Assessment : Yes Responsible for Young Children: No Employed: No Supportive Family: Yes Good Rapport with Provider: Yes Interval History Identifying Information VALENTINA CLARK is a 73-year-old F who currently lives in [place] with her , has a history of bipolar disorder type I and generalized anxiety di sorder, and was admitted on 03/30/19 19:35 on a 201 voluntary commitment for severe anxiety and inability to function. Chief Complaint "So-so". Review of Systems Sleep Information Total Hours of Sleep: 6.25 Sleep Comments: pt DENNYS @0515 and thereafter. pt given ambien per rn. pt on q- 15 minute checks Meal Information Percent Meal Consumed - Breakfast: 50 Percent Meal Consumed - Lunch: 25 Percent Meal Consumed - Dinner: 50 Nutrition Comment: pt. reports poor appetite Subjective Subjective Patient was seen & assessed and interval progress reviewed with nursing and social work. Staff reports she remained in bed all day yesterday, refused all groups, haloperidol and clonazepam for intrusive thoughts and anxiety. She continues to report intrusive, disturbing thoughts of harming her family and sexual themes, which she does not want to discuss. Was noted to be tremulous, drenched in sweat, and drinking excessively. Her gait was unsteady, and she requires assistance for ADLs. At times she was extremely restless. Her haloperidol was increased to 2 mg every 4 hours as needed, but later in the day did not appear effective. Her bedtime olanzapine was held. She was able to tolerate a visit from her last night. On my assessment, she states that her mood is "down," and that she is "too numb to cry." She continues to experience distressing, ruminative thoughts, which she describes as "too filthy to voice." She says nothing helps to deal with them, and is dismissive of all suggestions given for coping strategies. She did come out of her room for breakfast, but said she felt "shaky." She continues to feel unsteady on her feet, which is new over the past few days. She denies falls, but continues to feel dizzy and unsteady when she stands or changes position. She denies muscle stiffness and shakiness currently. Appetite is fair, states she drank a lot of water yesterday because she suddenly got very thirsty and "it also has to do with the bathroom." She says she has voiding difficulty at times, and cannot ex plain how drinking more water would help with that. She denies pain currently. Bowel movements are normal, daily to every other day. In explaining my concerns that she has had an acute change, has not been getting out of better able to participate in treatment, and that I would like to consult the hospitalist, she became distraught, begging not to have to see another doctor. Physical Exam Psychiatric Thin white female appearing her stated age. Casually dressed, adequately groomed. Lying in bed in no acute distress, awake and alert. Partial cooperation with the interview, but at times becomes overwhelmed and distraught, closes eyes, and asks to be left alone. Mood is "down," and affect is restricted to depressed and anxious. Thoughts are perseverative, on her negative, ruminative thoughts, that she does not want to discuss because they are "filthy." Denies SI and HI, no hallucinations or tamiko delusions. Speech is minimal. Insight and judgment are impaired. Vital Signs (Past 24 Hours) Last Vital Signs Temp 36.6 C 04/21/19 06:56 Pulse 93 H 04/21/19 06:58 Resp 18 04/21/19 06:56 BP 147/80 H 04/21/19 06:58 Pulse Ox 97 04/11/19 06:46 Results & Data Current Inpatient Medications Current Inpatient Medications: Current Inpatient Medications Acetaminophen (Tylenol) 650 mg PO Q4H PRN PRN Reason: Headache or Minor Fever Stop: 04/29/19 19:02 Last Admin: 04/13/19 04:30 Dose: 650 mg Documented by: Al Hydrox/Mg Hydrox/Simethicone (Maalox) 30 ml PO Q4H PRN PRN Reason: GI Upset Stop: 04/29/19 19:02 Bismuth Subsalicylate (Kaopectate) 15 ml PO PRN PRN PRN Reason: Loose Stool Stop: 04/29/19 19:02 Clonazepam (Klonopin) 0.5 mg PO TID PRN PRN Reason: Anxiety Stop: 05/15/19 15:26 Last Admin: 04/20/19 08:23 Dose: 0.5 mg Documented by: Clonidine HCl (Catapres) 0.1 mg PO Q4H PRN PRN Reason: Hypertension Stop: 05/11/19 09:16 Last Admin: 04/15/19 06:56 Dose: 0.1 mg Documented by: Haloperidol (Haldol) 2 mg PO Q4 PRN PRN Reason: Anxiety/Agitation Stop: 05/17/19 14:16 Last Admin: 04/21/19 07:32 Dose: 2 mg Documented by: Lisinopril (Zestril) 15 mg PO BID PILI Stop: 05/11/19 08:59 Last Admin: 04/21/19 07:28 Dose: 15 mg Documented by: Magnesium Hydroxide (Milk Of Magnesia) 30 ml PO DAILY PRN PRN Reason: Heartburn Stop: 04/29/19 19:02 Last Admin: 04/11/19 13:23 Dose: 30 ml Documented by: Mirtazapine (Remeron) 30 mg PO HS PILI Stop: 05/05/19 21:59 Last Admin: 04/20/19 21:27 Dose: 30 mg Documented by: Olanzapine (Zyprexa) 10 mg PO HS [facility] Stop: 05/17/19 21:59 Last Admin: 04/20/19 21:28 Dose: Not Given Documented by: Sertraline HCl (Zoloft) 200 mg PO QAM PILI Stop: 05/17/19 08:59 Last Admin: 04/21/19 07:29 Dose: 200 mg Documented by: Sodium Chloride (Jay Nasal) 1 - 2 sprays NA PRN PRN PRN Reason: Nasal Dryness/Congestion Stop: 04/29/19 19:02 Zolpidem Tartrate (Ambien) 5 mg PO HS PRN PRN Reason: Sleep Stop: 05/17/19 21:07 Last Admin: 04/20/19 23:36 Dose: 5 mg Documented by: Mental Health & Subst Abuse Tx Psychiatrist Name of Psychiatrist: [facility] Carey Astudillo Psychiatrist's Date of Appointment with Psychiatrist: 04/20/19 Time of Appointment with Psychiatrist: 2:00 p.m. Psychiatric Appointment Comment: [address] [place] [address] Therapist Name of Therapist: [facility] Carey Petersen Therapist's Date of Therapist Appointment: 04/19/19 Time of Therapist Appointment: 1:30 p.m. Therapy Appointment Comment: [address] [place] [address] Post Discharge Appointments Primary Care Physician Name Of Family Doctor: [facility] - Dr. Ayala [facility] Date of Appointment with PCP: 04/25/19 Time of Appointment with PCP: 10:30 a.m. Provider Appointment Comment: [address], [address], [place] [address] Contact Information Discharge Discharge Address: [address] [place] [id number] CPT Code CPT Code 44503
[2019-04-21] MEDS: clonazePAM 0.5 MG TAB PO PRN (13:59)
[2019-04-21] MEDS: ZOLPIDEM TARTRATE 5 MG TAB PO PRN (21:16)
[2019-04-21] MEDS: MIRTAZAPINE TAB 15 MG TAB PO SCH (21:16)
[2019-04-22] MEDS: LISINOPRIL 10 MG TAB PO SCH ×2 (07:23→21:01)
[2019-04-22] MEDS: SERTRALINE HCL 100 MG TABLET PO SCH (07:24)
[2019-04-22] MEDS ORDERED: CYPROHEPTADINE HCL 4 MG TAB PO STA (09:33)
--- NOTE | 2019-04-22 10:52 | Psychiatric Progress Note ---
Date of Service April 22, 2019 Impression / Recommendations Impression 73-year-old female with a history of bipolar 1 and generalized anxiety disorder who was admitted voluntarily with severe, debilitating anxiety, depression, and inability to function. She had electrolyte abnormalities on presentation due to poor p.o. intake, was not sleeping, performing ADLs or getting out of bed at home. She has lost weight, is cognitively impaired, and a limited historian. Her care is complex due to bipolar type I with history of rfeedom, trying to utilize medications to target anxiety while avoiding activation/freedom and akathisia. Ongoing medication adjustments are being pursue d to target these concerns, as well as episodes of EPS. Patient has been more open about intrusive thoughts she has been experiencing for several months prior to her admission. She is extremely distressed by these homicidal thoughts towards her and family, and denies intent to act on them. Inpatient treatment is medically necessary and remains the least restrictive option she is unable to provide for her own basic needs without the care and assistance of others. She is eating very little, is not sleeping adequately, continues to ruminate on intrusive ego dystonic thoughts of harming others. She has been so distraught by thoughts that she has not been participating in groups or therapy, does not feel safe to leave the hospital, and is not appropriate for outpatient care due to the severity of her symptoms. She has had numerous medication adjustments and changes, due to inefficacy or intolerability of multiple agents. She has decompensated over the past few days physically, has not been getting out of bed or participating in treatment, and has had episodes of excessive sweating, shaking, and dizziness when she stands. We are trying to limits her medications given the risk of side effects, and olanzapine has now been stopped. We have requested a medical consult for any assistance or insight they can provide. Today, we are concerned that the patient is exhibiting certain symptoms suggestive of a Serotonin Syndrome, including muscle stiffness, worsening cognitive impairment, agitation, pupillary dilatation (bilateral), recent onset diarrhea, and blood pressure alterations. Within this context, we are holding serotonergic medications including mirtazapine, sertraline, and Ambien. We are also planning to treat the patient with Periactin and a dose of Periactin 12 mg has been ordered. (1) Bipolar 1 disorder: (1) Bipolar 1 disorder: 03/31 -current episode depressed with severe anxiety. -Clarify home med list, as there are some discrepancies (external medication history shows that she filled #30 olanzapine 10 mg tablets and hydroxyzine 25 mg tablets on 03/18/2019, but admission medication reconciliation indicates olanzapine 15 mg every afternoon and hydralazine 25 mg every afternoon). Nursing staff to call her and clarify this: Patient is not prescribed hydralazine, will remove medication. She did receive a dose last night, and blood pressure this morning was elevated 163/89, but on repeat 124/71. -Increase sertraline to 100 mg daily to target mood and anxiety, and watch for activation/mood stabilization. -It is unclear if her home dose of olanzapine is 10 or 15 mg; she received 15 mg last night, and I am concerned for EPS given her cogwheeling on exam and severe restlessness. Order benztropine 0.5 mg as needed, and reduce olanzapine to 10 milligrams at bedtime. Per she was only on 10mg olanzapine at home. May need to reduce dose further or switch to another antipsychotic if EPS does not improve. -Fasting lipid profile and glucose performed on 09/30/2018 for monitoring on an atypical antipsychotic, and were within normal limits. 04/01 -Contributing to the patient's severe anxiety may be akathisia associated with olanzapine and, possibly, sertraline. I have advised the patient accordingly, and she accepts my recommendation for a standing dose of Artane ( trihexyphenidyl) -Patient otherwise indicates that she feels that she has been tolerating olanzapine well, and reports that she feels this medication has been helpful to her. -The patient's dose of sertraline has been increased to 100 mg daily 04/02 -Patient more unsteady today. Will hold any further doses of diphenhydramine for now. She does not have any cogwheeling; once she is able to relax the paratonia disappears -Patient now on moderate dose of SSRI. Reviewed she had been manic at last presentation. Considering Remeron trial which may help with restlessness and anxiety and allow for reduction of some of the anticholinergic medication she has been started on however patient appeared overwhelmed when attempting to discuss today and will defer for reconsideration tomorrow -patient refused physical therapy referral for imbalance today 04/04 - Continue current medication regimen, consider titration of mirtazapine with observation for activation 04/05 - Titrating mirtazapine to 30mg this evening - continue to monitor for possible activation and triggering of manic symptoms - Once efficacy is apparent, consider tapering sertraline to achieve antidepressant monotherapy - Continue remainder of medication regimen unchanged 04/06 - Patient reports mood and restlessness are slightly improved. - Worsening tachycardia with heart rate as high as 130, with worsening after Artane was started. As this medication can cause tachycardia, will decrease it to 1 mg twice daily. 04/07 -Tachycardia has resolved with lowered Artane dose. Restlessness is improved. 04/08 -While the patient's restlessness has improved, today, she continues to complain of restlessness and, on testing, demonstrates persistent cogwheeling. Currently, we will offer the patient a trial of diphenhydramine 12.5 mg twice a day. The target of diphenhydramine in this case is the patient's EPS, but we are also hopeful that it will aid in managing the patient's anxiety. -The patient is complaining of persistent anxiety and intrusive, ego dystonic thoughts that she tells me she is embarrassed to discuss. I offered the patient reassurances in this regard. -The patient reports that she is not having suicidal thoughts. 04/09 - 04/10 - Continue current medication regimen, reportedly demonstrating improvement 04/11 - Titrating sertraline to 150mg daily, continue remainder of current medi cation regimen 04/12 - Continue plan as above 04/13 - Titrating sertraline to 175mg daily, continue remainder of medication regimen for now - Pt reporting significant distress from intrusive thoughts - consider alternative options to reduce distress. Did not tolerate 15 mg dose of olanzapine due to EPS, but could consider split dosing 5 mg / 10 mg. Could also consider retrial of risperidone, or alternative agents. 04/14 - Reviewed medication options above with the patient, who does not desire to change atypical antipsychotic medications at this time. She was agreeable to titrating the dose to 5mg qAM and 10mg qHS. - Continue to monitor for EPS as dose is titrated 04/15 -I again spoke with the patient about possibly changing her antipsychotic, mood stabilizing medication from olanzapine to risperidone. The patient says that she feels fairly strongly that she would prefer to remain on olanzapine because she feels that it does help stabilize her mood. -While the patient does endorse feelings of depression, she tells us that the depression seems to be following her anxiety and distress regarding a series of alien, intrusive ego dystonic thoughts that she has great difficulty dismissing. 04/16--now willing to start Risperdal so d/c hs dose of Zyprexa and replace with Risperdal 1 mg. Reassess in am for cross taper. 04/17--not tolerating Risperdal 1 mg due to orthostasis. Reassess for restart of Zyprexa this hs vs prn Haldol. (2) Generalized anxiety disorder: 03/31 -patient extremely anxious, with negative, ruminative thoughts, and severe restlessness. -Increase sertraline as above. -At home dose of hydroxyzine 25 mg at bedtime, and offer 25 mg every 4 hours as needed anxiety. -Continue clonazepam 0.5 mg every morning, and add 0.5 mg dose twice daily as needed if hydroxyzine an effective, but monitor for unsteadiness and oversedation. 04/01/19 -As noted above, some of the patient's anxious distress may be secondary to eps side effects (akathisia). -On examination, the patient does have cogwheel rigidity. However, she tells me that she feels that she is somewhat less anxious and notes that the medications for her anxiety "may be helping." 04/02 -Patient remains highly anxious. Considered alternative options for bedtime hydroxyzine to reduce anticholinergic burden. Elected to trial the Remeron at 15 mg p.o. nightly which may help off label for feelings of restlessness. Hopefully this will also help to reduce her anxiety and provide some appetite stimulation but will need to watch for mood cycling in combination with the sertraline. If she does well with this agent, could consider using it as antidepressant monotherapy (tapering her off the Zoloft) 04/04 - Continue current medication regimen - consider increase or mirtazapine and possible taper of sertraline as outlined above; wanting to ensure tolerance prior to switching to mirtazapine as monotherapy 04/05 - Titrating mirtazapine to 30mg this evening; will continue sertraline at 100mg until efficacy of mirtazapine can be determined - Continue remainder of medication regimen unchanged 04/08 -As above, we are increasing her dose of sertraline to a dose of 125 mg daily to treat anxiety and depression. We will continue olanzapine to serve as a mood stabilizer given the patient's diagnosis of bipolar disorder. -Also as noted above, we have added diphenhydramine 12.5 mg twice a day for extraparametal side effects, persistent) EPS, and we will discontinue Artane. Hopefully, diphenhydramine will help not only with extraparametal side effects but, also, with the patient's generalized anxiety. -The patient's standing dose of clonazepam has been increased from 0.5 mg in the morning to 0.5 mg 3 times a day. She will also have available to her as needed clonazepam. Material risks and anticipated benefits of clonazepam have been reviewed with the patient, and it has been explained that this is not expected to be a long-term intervention but, instead, is being used to help bring the patient's anxiety under better control so that she can more fruitful he participate in the treatment on the. 04/09 - Continue current medication regimen; consider need for further titration of sertraline to 150mg daily - Patient appearing less restless/anxious, though she describes her symptoms to be unchanged 04/10 - Continue current medication regimen; consider titration of sertraline as above - pt limited in willingness to discuss multiple changes today - Patient's appearance is improving, though she reports limited changes in her condition 04/11 - Titrate sertraline to 150mg daily. Pt reporting daytime sedation, can consider possible reduction of prns at some point, when she begins to be more effective - Pt reporting mild improvements in anxiety 04/12 - Continue sertraline 150mg daily - In attempt to reduce sedation, but maintain progress with reducing anxiety/restlessness - will titrate diphenhydramine to 25mg daily (this will also allow for medication in capsule form, which patient prefers). Will discontinue scheduled TID clonazepam, but leave available prn dosing should patient require it during the day for anxiety or other concerns. - Staff also reporting apneic episodes observed at night; reducing reliance on benzodiazepines will be ideal as will reduce additional risk for respiratory concerns - Continue to encourage development of healthy and effective coping strategies 04/13 - Titrating sertraline to 175mg daily - Continue remainder of medication regimen as above - Pt has been more open about intrusive homicidal thoughts, distressing, with no intent to act. Pt is very disturbed by these thoughts - Patient unwilling for additional medication adjustments today; however, could consider titration of olanzapine. Patient did experience significant EPS when she received a 15 mg dose early in her admission. Consider split dosing - 5mg/10mg - Also consider retrial for risperidone (beneficial on last admission), possibly as prn and then scheduled in place of olanzapine if effective. Can also consider trial of another atypical antipsychotic which may better target concerns. 04/14 - Continue medication adjustments as above - olanzapine 5mg qAM and 10mg qHS 04/15 -The patient's anxiety symptoms seem to be a combination of anxious distress associated with ego-dystonic intrusive thoughts, as well as restlessness associated with extrapyramidal side effects from her medications. -She has tolerated an increase in her dose of diphenhydramine from 12.5 mg to 25 mg without excess sedation, and she tells us that she much prefers this because she did not like the taste of liquid diphenhydramine. -We are beginning clonazepam 0.5 mg up to 3 times a day as needed for anxiety. The patient has a past history of favorable response to this medication. Material risks, including, but not limited to excess sedation, increased risk of accident, increased risk for falls, physical habituation with complicated withdrawal that may may be fatal and can include seizures, and cognitive impairment. The patient indicates understanding and notes that she has had no problems taking the clonazepam in the past. 04/19 -Diphenhydramine discontinued over the weekend due to anticholinergic side effects. Continue olanzapine 10 mg daily. She has haloperidol 1 mg every 4 hours as needed which she has not yet received. -Continue sertraline 200 mg daily and mirtazapine 30 mg at bedtime. 04/20 -Patient is received several doses of haloperidol 1 mg which has been helpful, and that she is tolerating it well, will increase to 2 mg every 4 hours as needed. If this is effective, can cross taper from olanzapine to haloperidol. -Continue to encourage patient to be out of her room and active during the day, even if unable to tolerate full groups; continued assistance for ADLs. 04/21 -Discontinue olanzapine as has not been effective and due to concern for extrapyramidal symptoms. Continue haloperidol and schedule 2mg 3 times daily, with an as needed dose as well. 04/22 -The patient continues to report feeling depressed, within the context of a history of bipolar disorder. A concern today is that the patient has been receiving multiple serotonergic medications and at the same time, may be exhibiting symptoms of serotonin syndrome. Accordingly, we will be holding mirtazapine, sertraline, and zolpidem. I have disclosed this concern, explained the causes of serotonin syndrome to the patient and she indicated understanding. (2) Orthostatic dizziness: started 04/17, repeat labs and monitor sodium (133). 04/18 -BMP notable for hyponatremia with sodium of 132. 04/19 -dizziness resolved, normotensive. Sodium 133. Encourage fluid intake. 04/22 -The patient is on bedrest and is being helped to the bathroom by staff. (3) Sweating abnormality: 04/21 -patient has had multiple episodes over the past few days of excessive sweating, found to be drenched in sweat and tremulous. She has been drinking excessively at times, but other times with poor oral intake. Her sodium has been slightly low. Today she is hypertensive and tachycardic. Will consult the hospitalist service for assistance and to rule out any medical contributors to her current state; reviewed with Dr. Nielsen, and appreciate any recommendations.. 04/22 -It is possible that the symptoms (diaphoresis and hypertension close disease may be secondary to serotonin syndrome. We have obtained a consult from a hospitalist, but the exact etiology has not been determined. (4) Serotonin syndrome: 04/22/19 -Serotonin syndrome is suspected. The patient does present with a number of symptoms that are suggestive of this. These include worsening confusion, muscle stiffness, recent onset diarrhea, diaphoresis, and pupillary dilatation. -We will treat symptomatically with benzodiazepines (Klonopin). She is also been given an order for Periactin 12 mg and we will continue this medication as indicated and tolerated. The diarrhea may be secondary to Periactin. -Serotonergic agents are being held pending further evaluation. Present on Admission?: Yes Risk Factors Assessment Male: No : Yes Do You Have Access To A Gun?: Yes ( has guns that are locked) Health Problems: Yes Mental Health Diagnoses: Yes Substance Use Disorders: No Previous Attempt: No Family History of Suicide: No Previous Psychiatric Hospitalization: Yes Hopelessness: Yes Smoker: No Protective Factors Assessment : Yes Responsible for Young Children: No Employed: No Supportive Family: Yes Good Rapport with Provider: Yes Interval History Identifying Information VALENTINA CLARK is a 73-year-old F who currently lives in [place] with her , has a history of bipolar disorder type I and generalized anxiety disorder, and was admitted on 03/30/19 19:35 on a 201 voluntary commitment for severe anxiety and inability to function. Chief Complaint "I do not feel good". Review of Systems Sleep Information Total Hours of Sleep: 8.5 Sleep Comments: received an hs dose of ambien for sleep aid as requested. sleep total hours are between 2 shifts Meal Information Percent Meal Consumed - Breakfast: 40 Percent Meal Consumed - Lunch: 25 Percent Meal Consumed - Dinner: 20 Nutrition Comment: Pt. routinely orders only scrambled eggs and takes a few bites, as well as a carnation instant breakfast drink. States her appetitie is poor and is resistant to trying different foods. Subjective Subjective Patient was seen & assessed and interval progress reviewed with treatment team. I met individually with the patient in order to assess her current mental status, evaluate her response to treatment, coordinate with the patient any changes in her treatment regimen, and address issues and concerns that may arise . When I last saw the patient a week ago, she had appeared to be improving somewhat, at least in terms of her anxiety. However, over the course of this past week she has developed or continued a number of troubling symptoms including episodic diaphoresis, persistent anxiety and confusion, persistent muscle stiffness, elevated blood pressure, and, today, on examination the patient's pupils are found to be slightly dilated bilaterally. Also, although the patient had been complaining of constipation, today, she is reporting diarrhea. I explained to the patient during the encounter that I suspect that she may possibly be experiencing what is known as "serotonin syndrome," and that, for the time being, we will be holding several of her medications, including mirtazapine, sertraline, and zolpidem. I have also prescribed Periactin 12 mg to be taken by mouth, and I explained this to the patient as well. Physical Exam Psychiatric Orientation: oriented to person and oriented to place Apperance: + disheveled Eye Contact: + fair eye contact Motor Behavior: + tremor The patient's speech is rarely spontaneous and is delivered in a somewhat soft and halting fashion. Affect: + anxious affect Mood: + depressed mood and + anxious mood Thought Process: + concrete thought process The patient continues to voice intrusive, ego dystonic thoughtsmost recently of a sexual nature. We are not identifying any systematized delusional believes at present. Suicidal Thoughts: denies suicidal thoughts The patient has intrusive ego-dystonic thoughts of harming other people, without any plan or intent. These thoughts are not considered to be direct marketing representative of actual risk. Hallucinations: no auditory hallucinations The patient has some difficulty today recalling recent events. Estimated Intelligence: + above average estimated intelligence Insight: + limited insight Judgement: + limited judgement Vital Signs (Past 24 Hours) Last Vital Signs Temp 36.6 C 04/22/19 06:47 Pulse 123 H 04/22/19 06:48 Resp 20 04/22/19 06:47 BP 113/77 04/22/19 06:48 Pulse Ox 97 04/11/19 06:46 Results & Data Current Inpatient Medications Current Inpatient Medications: Current Inpatient Medications Acetaminophen (Tylenol) 650 mg PO Q4H PRN PRN Reason: Headache or Minor Fever Stop: 04/29/19 19:02 Last Admin: 04/13/19 04:30 Dose: 650 mg Documented by: Al Hydrox/Mg Hydrox/Simethicone (Maalox) 30 ml PO Q4H PRN PRN Reason: GI Upset Stop: 04/29/19 19:02 Bismuth Subsalicylate (Kaopectate) 15 ml PO PRN PRN PRN Reason: Loose Stool Stop: 04/29/19 19:02 Clonazepam (Klonopin) 0.5 mg PO TID PRN PRN Reason: Anxiety Stop: 05/15/19 15:26 Last Admin: 04/21/19 13:59 Dose: 0.5 mg Documented by: Clonidine HCl (Catapres) 0.1 mg PO Q4H PRN PRN Reason: Hypertension Stop: 05/11/19 09:16 Last Admin: 04/15/19 06:56 Dose: 0.1 mg Documented by: Haloperidol (Haldol) 2 mg PO Q4 PRN PRN Reason: Anxiety/Agitation Stop: 05/17/19 14:16 Last Admin: 04/21/19 07:32 Dose: 2 mg Documented by: Lisinopril (Zestril) 15 mg PO BID [facility] Stop: 05/11/19 08:59 Last Admin: 04/22/19 07:23 Dose: 15 mg Documented by: Magnesium Hydroxide (Milk Of Magnesia) 30 ml PO DAILY PRN PRN Reason: Heartburn Stop: 04/29/19 19:02 Last Admin: 04/11/19 13:23 Dose: 30 ml Documented by: Sodium Chloride ([place] Nasal) 1 - 2 sprays NA PRN PRN PRN Reason: Nasal Dryness/Congestion Stop: 04/29/19 19:02 Mental Health & Subst Abuse Tx Psychiatrist Name of Psychiatrist: [facility] Carey Astudillo Psychiatrist's Date of Appointment with Psychiatrist: 04/20/19 Time of Appointment with Psychiatrist: 2:00 p.m. Psychiatric Appointment Comment: [address] [facility] [place] [address] Therapist Name of Therapist: BENJAMIN Carey Petersen Therapist's Date of Therapist Appointment: 04/19/19 Time of Therapist Appointment: 1:30 p.m. Therapy Appointment Comment: [address] [place] [address] Post Discharge Appointments Primary Care Physician Name Of Family Doctor: [facility] - Dr. Ayala [facility] Date of Appointment with PCP: 04/25/19 Time of Appointment with PCP: 10:30 a.m. Provider Appointment Comment: [address], [address], [place] [address] Contact Information Discharge Discharge Address: [address] [place] [id number] CPT Code CPT Code 54061
[2019-04-22] MEDS: CYPROHEPTADINE HCL 4 MG TAB PO SCH ×4 (13:44→19:43)
[2019-04-22] MEDS: clonazePAM 0.5 MG TAB PO SCH ×2 (13:44→21:02)
[2019-04-22] MEDS: clonazePAM 0.5 MG TAB PO PRN (23:00)
[2019-04-23] MEDS: clonazePAM 0.5 MG TAB PO SCH ×2 (09:08→20:57)
[2019-04-23] MEDS: LISINOPRIL 10 MG TAB PO SCH ×2 (09:08→20:55)
--- NOTE | 2019-04-23 19:46 | Psychiatric Progress Note ---
Date of Service April 23, 2019 Impression / Recommendations Impression 73-year-old female with a history of bipolar 1 and generalized anxiety disorder who was admitted voluntarily with severe, debilitating anxiety, depression, and inability to function. She had electrolyte abnormalities on presentation due to poor p.o. intake, was not sleeping, performing ADLs or getting out of bed at home. She has lost weight, is cognitively impaired, and a limited historian. Her care is complex due to bipolar type I with history of freedom, trying to utilize medications to target anxiety while avoiding activation/freedom and akathisia. Ongoing medication adjustments are being pursue d to target these concerns, as well as episodes of EPS. Patient has been more open about intrusive thoughts she has been experiencing for several months prior to her admission. She is extremely distressed by these homicidal thoughts towards her and family, and denies intent to act on them. Inpatient treatment is medically necessary and remains the least restrictive option she is unable to provide for her own basic needs without the care and assistance of others. She is eating very little, is not sleeping adequately, continues to ruminate on intrusive ego dystonic thoughts of harming others. She has been so distraught by thoughts that she has not been participating in groups or therapy, does not feel safe to leave the hospital, and is not appropriate for outpatient care due to the severity of her symptoms. She has had numerous medication adjustments and changes, due to inefficacy or intolerability of multiple agents. She has decompensated over the past few days physically, has not been getting out of bed or participating in treatment, and has had episodes of excessive sweating, shaking, and dizziness when she stands. We are trying to limits her medications given the risk of side effects, and olanzapine has now been stopped. We have requested a medical consult for any assistance or insight they can provide. on 04/22 , we were e concerned that the patient is exhibiting certain symptoms suggestive of a Serotonin Syndrome, including muscle stiffness, worsening cognitive impairment, agitation, pupillary dilatation (bilateral), recent onset diarrhea, and blood pressure alterations. Within this context, we are holding serotonergic medications including mirtazapine, sertraline, and Ambien. We gave Periactin 2mg at 4 doses about 2 hours apart in afternoon into evening on 04/22. (1) Bipolar 1 disorder: (1) Bipolar 1 disorder: 03/31 -current episode depressed with severe anxiety. -Clarify home med list, as there are some discrepancies (external medication history shows that she filled #30 olanzapine 10 mg tablets and hydroxyzine 25 mg tablets on 03/18/2019, but admission medication reconciliation indicates olanzapine 15 mg every afternoon and hydralazine 25 mg every afternoon). Nursing staff to call her and clarify this: Patient is not prescribed hydralazine, will remove medication. She did receive a dose last night, and blood pressure this morning was elevated 163/89, but on repeat 124/71. -Increase sertraline to 100 mg daily to target mood and anxiety, and watch for activation/mood stabilization. -It is unclear if her home dose of olanzapine is 10 or 15 mg; she received 15 mg last night, and I am concerned for EPS given her cogwheeling on exam and severe restlessness. Order benztropine 0.5 mg as needed, and reduce olanzapine to 10 milligrams at bedtime. Per she was only on 10mg olanzapine at home. May need to reduce dose further or switch to another antipsychotic if EPS does not improve. -Fasting lipid profile and glucose performed on 09/30/2018 for monitoring on an atypical antipsychotic, and were within normal limits. 04/01 -Contributing to the patient's severe anxiety may be akathisia associated with olanzapine and, possibly, sertraline. I have advised the patient accordingly, and she accepts my recommendation for a standing dose of Artane (trihexyphenidyl) -Patient otherwise indicates that she feels that she has been tolerating olanzapine well, and reports that she feels this medication has been helpful to her. -The patient's dose of sertraline has been increased to 100 mg daily 04/02 -Patient more unsteady today. Will hold any further doses of diphenhydramine for now. She does not have any cogwheeling; once she is able to relax the paratonia disappears -Patient now on moderate dose of SSRI. Reviewed she had been manic at last presentation. Considering Remeron trial which may help with restlessness and anxiety and allow for reduction of some of the anticholinergic medication she has been started on however patient appeared overwhelmed when attempting to discuss today and will defer for reconsideration tomorrow -patient refused physical therapy referral for imbalance today 04/04 - Continue current medication regimen, consider titration of mirtazapine with observation for activation 04/05 - Titrating mirtazapine to 30mg this evening - continue to monitor for possible activation and triggering of manic symptoms - Once efficacy is apparent, consider tapering sertraline to achieve antidepressant monotherapy - Continue remainder of medication regimen unchanged 04/06 - Patient reports mood and restlessness are slightly improved. - Worsening tachycardia with heart rate as high as 130, with worsening after Artane was started. As this medication can cause tachycardia, will decrease it to 1 mg twice daily. 04/07 -Tachycardia has resolved with lowered Artane dose. Restlessness is improved. 04/08 -While the patient's restlessness has improved, today, she continues to complain of restlessness and, on testing, demonstrates persistent cogwheeling. Currently, we will offer the patient a trial of diphenhydramine 12.5 mg twice a day. The target of diphenhydramine in this case is the patient's EPS, but we are also hopeful that it will aid in managing the patient's anxiety. -The patient is complaining of persistent anxiety and intrusive, ego dystonic thoughts that she tells me she is embarrassed to discuss. I offered the patient reassurances in this regard. -The patient reports that she is not having suicidal thoughts. 04/09 - 04/10 - Continue current medication regimen, reportedly demonstrating improvement 04/11 - Titrating sertraline to 150mg daily, continue remainder of current medication regimen 04/12 - Continue plan as above 04/13 - Titrating sertraline to 175mg daily, continue remainder of medication regimen for now - Pt reporting significant distress from intrusive thoughts - consider alternative options to reduce distress. Did not tolerate 15 mg dose of olanzapine due to EPS, but could consider split dosing 5 mg / 10 mg. Could also consider retrial of risperidone, or alternative agents. 04/14 - Reviewed medication options above with the patient, who does not desire to change atypical antipsychotic medications at this time. She was agreeable to titrating the dose to 5mg qAM and 10mg qHS. - Continue to monitor for EPS as dose is titrated 04/15 -I again spoke with the patient about possibly changing her antipsychotic, mood stabilizing medication from olanzapine to risperidone. The patient says that she feels fairly strongly that she would prefer to remain on olanzapine because she feels that it does help stabilize her mood. -While the patient does endorse feelings of depression, she tells us that the depression seems to be following her anxiety and distress regarding a series of alien, intrusive ego dystonic thoughts that she has great difficulty dismissing. 04/16--now willing to start Risperdal so d/c hs dose of Zyprexa and replace with Risperdal 1 mg. Reassess in am for cross taper. 04/17--not tolerating Risperdal 1 mg due to orthostasis. Reassess for restart of Zyprexa this hs vs prn Haldol. (2) Generalized anxiety disorder: 03/31 -patient extremely anxious, with negative, ruminative thoughts, and severe restlessness. -Increase sertraline as above. -At home dose of hydroxyzine 25 mg at bedtime, and offer 25 mg every 4 hours as needed anxiety. -Continue clonazepam 0.5 mg every morning, and add 0.5 mg dose twice daily as needed if hydroxyzine an effective, but monitor for unsteadiness and oversedation. 04/01/19 -As noted above, some of the patient's anxious distress may be secondary to eps side effects (akathisia). -On examination, the patient does have cogwheel rigidity. However, she tells me that she feels that she is somewhat less anxious and notes that the medications for her anxiety "may be helping." 04/02 -Patient remains highly anxious. Considered alternative options for bedtime hydroxyzine to reduce anticholinergic burden. Elected to trial the Remeron at 15 mg p.o. nightly which may help off label for feelings of restlessness. Hopefully this will also help to reduce her anxiety and provide some appetite stimulation but will need to watch for mood cycling in combination with the sertraline. If she does well with this agent, could consider using it as antidepressant monotherapy (tapering her off the Zoloft) 04/04 - Continue current medication regimen - consider increase or mirtazapine and possible taper of sertraline as outlined above; wanting to ensure tolerance prior to switching to mirtazapine as monotherapy 04/05 - Titrating mirtazapine to 30mg this evening; will continue sertraline at 100 mg until efficacy of mirtazapine can be determined - Continue remainder of medication regimen unchanged 04/08 -As above, we are increasing her dose of sertraline to a dose of 125 mg daily to treat anxiety and depression. We will continue olanzapine to serve as a mood stabilizer given the patient's diagnosis of bipolar disorder. -Also as noted above, we have added diphenhydramine 12.5 mg twice a day for extraparametal side effects, persistent) EPS, and we will discontinue Artane. Hopefully, diphenhydramine will help not only with extraparametal side effects but, also, with the patient's generalized anxiety. -The patient's standing dose of clonazepam has been increased from 0.5 mg in the morning to 0.5 mg 3 times a day. She will also have available to her as needed clonazepam. Material risks and anticipated benefits of clonazepam have been reviewed with the patient, and it has been explained that this is not expected to be a long-term intervention but, instead, is being used to help bring the patient's anxiety under better control so that she can more fruitful he participate in the treatment on the. 04/09 - Continue current medication regimen; consider need for further titration of sertraline to 150mg daily - Patient appearing less restless/anxious, though she describes her symptoms to be unchanged 04/10 - Continue current medication regimen; consider titration of sertraline as above - pt limited in willingness to discuss multiple changes today - Patient's appearance is improving, though she reports limited changes in her condition 04/11 - Titrate sertraline to 150mg daily. Pt reporting daytime sedation, can consider possible reduction of prns at some point, when she begins to be more effective - Pt reporting mild improvements in anxiety 04/12 - Continue sertraline 150mg daily - In attempt to reduce sedation, but maintain progress with reducing anxiety/restlessness - will titrate diphenhydramine to 25mg daily (this will also allow for medication in capsule form, which patient prefers). Will discontinue scheduled TID clonazepam, but leave available prn dosing should patient require it during the day for anxiety or other concerns. - Staff also reporting apneic episodes observed at night; reducing reliance on benzodiazepines will be ideal as will reduce additional risk for respiratory concerns - Continue to encourage development of healthy and effective coping strategies 04/13 - Titrating sertraline to 175mg daily - Continue remainder of medication regimen as above - Pt has been more open about intrusive homicidal thoughts, distressing, with no intent to act. Pt is very disturbed by these thoughts - Patient unwilling for additional medication adjustments today; however, could consider titration of olanzapine. Patient did experience significant EPS when she received a 15 mg dose early in her admission. Consider split dosing - 5mg/10mg - Also consider retrial for risperidone (beneficial on last admission), possibly as prn and then scheduled in place of olanzapine if effective. Can also consider trial of another atypical antipsychotic which may better target concerns. 04/14 - Continue medication adjustments as above - olanzapine 5mg qAM and 10mg qHS 04/15 -The patient's anxiety symptoms seem to be a combination of anxious distress associated with ego-dystonic intrusive thoughts, as well as restlessness associated with extrapyramidal side effects from her medications. -She has tolerated an increase in her dose of diphenhydramine from 12.5 mg to 25 mg without excess sedation, and she tells us that she much prefers this because she did not like the taste of liquid diphenhydramine. -We are beginning clonazepam 0.5 mg up to 3 times a day as needed for anxiety. The patient has a past history of favorable response to this medication. Material risks, including, but not limited to excess sedation, increased risk of accident, increased risk for falls, physical habituation with complicated withdrawal that may may be fatal and can include seizures, and cognitive impairment. The patient indicates understanding and notes that she has had no problems taking the clonazepam in the past. 04/19 -Diphenhydramine discontinued over the weekend due to anticholinergic side effects. Continue olanzapine 10 mg daily. She has haloperidol 1 mg every 4 hours as needed which she has not yet received. -Continue sertraline 200 mg daily and mirtazapine 30 mg at bedtime. 04/20 -Patient is received several doses of haloperidol 1 mg which has been helpful, and that she is tolerating it well, will increase to 2 mg every 4 hours as needed. If this is effective, can cross taper from olanzapine to haloperidol. -Continue to encourage patient to be out of her room and active during the day, even if unable to tolerate full groups; continued assistance for ADLs. 04/21 -Discontinue olanzapine as has not been effective and due to concern for extrapyramidal symptoms. Continue haloperidol and schedule 2mg 3 times daily, with an as needed dose as well. 04/22 -The patient continues to report feeling depressed, within the context of a history of bipolar disorder. A concern today is that the patient has been receiving multiple serotonergic medications and at the same time, may be exhibiting symptoms of serotonin syndrome. Accordingly, we will be holding mirtazapine, sertraline, and zolpidem. I have disclosed this concern, explained the causes of serotonin syndrome to the patient and she indicated understanding. 04/23 holding psychiatric meds expect for clonazepam a for now given possible serotonin syndrome. rewriter considering retrial of Risperdal when appropriate given past tolerability (with possibility of titratuating dose past 1mg bid that took in past) if tolerated decently in last trial, recent trial of orthostatic concerns might be more about overall presentation then Risperdal given vitals as whole lately. also Lamictal a possible med option given aim to avoid worsening possible serotonin syndrome. pt not willing to take prior or new Meds currently and rewriter seeking to hold such trails for now as well. (2) Orthostatic dizziness: started 04/17, repeat labs and monitor sodium (133). 04/18 -BMP notable for hyponatremia with sodium of 132. 04/19 -dizziness resolved, normotensive. Sodium 133. Encourage fluid intake. 04/22 -The patient is on bedrest and is being helped to the bathroom by staff. (3) Sweating abnormality: 04/21 -patient has had multiple episodes over the past few days of excessive sweating, found to be drenched in sweat and tremulous. She has been drinking excessively at times, but other times with poor oral intake. Her sodium has been slightly low. Today she is hypertensive and tachycardic. Will consult the hospitalist service for assistance and to rule out any medical contributors to her current state; reviewed with Dr. Nielsen, and appreciate any recommendations.. 04/22 -It is possible that the symptoms (diaphoresis and hypertension close disease may be secondary to serotonin syndrome. We have obtained a consult from a hospitalist, but the exact etiology has not been determined. (4) Serotonin syndrome: 04/22/19 -Serotonin syndrome is suspected. The patient does present with a number of symptoms that are suggestive of this. These include worsening confusion, muscle stiffness, recent onset diarrhea, diaphoresis, and pupillary dilatation. -We will treat symptomatically with benzodiazepines (Klonopin). She is also been given an order for Periactin 12 mg and we will continue this medication as indicated and tolerated. The diarrhea may be secondary to Periactin. -Serotonergic agents are being held pending further evaluation. 04/23 holding meds that have serotonin impact for now and monitoring vitals and for s/s of serotonin syndrome. with potential for more periactin doses if seems needed. Risk Factors Assessment Male: No : Yes Do You Have Access To A Gun?: Yes ( has guns that are locked) Health Problems: Yes Mental Health Diagnoses: Yes Substance Use Disorders: No Previous Attempt: No Family History of Suicide: No Previous Psychiatric Hospitalization: Yes Hopelessness: Yes Smoker: No Protective Factors Assessment : Yes Responsible for Young Children: No Employed: No Supportive Family: Yes Good Rapport with Provider: Yes Interval History Identifying Information VALENTINA CLARK is a 73-year-old F who currently lives in [place] with her , has a history of bipolar disorder type I and generalized anxiety disorder, and was admitted on 03/30/19 19:35 on a 201 voluntary commitment for severe anxiety and inability to function. Chief Complaint intrusive thoughts that are too bothersome and embarrassing to talk about . Review of Systems Sleep Information Total Hours of Sleep: 8 Sleep Comments: requested and received an hs dose of klonopin for sleep aid Meal Information Percent Meal Consumed - Breakfast: 25 Percent Meal Consumed - Lunch: 25 Percent Meal Consumed - Dinner: 25 Nutrition Comment: Pt. routinely orders only scrambled eggs and takes a few bites, as well as a carnation instant breakfast drink. States her appetitie is poor and is resistant to trying different foods. Subjective Subjective Patient was seen & assessed and interval progress reviewed with nursing and social work Patient was seen & assessed and interval progress reviewed with nursing and social work. pt had diarrhea yesterday. pt having ongoing intrusive thoughts and images of disturbing content for her that she is ashamed of having unable to give timeline or describe how been in past. trouble concentrating, distressed by her thougths and anxious pt verbalis only mild anxiety reports anxiety high enough to not really want to talk to rewriter. Pt expressed desire to not take any more Periactin and also to not add back any medications with not wanting any more Meds. She is comfortable with current dosing of clonazepam though. She feels that the clonazepam (scheduled and prn doses) helps her sleep at night. She denied SI or HI. She denied Ah or VH and denied viewing herself as paranoid. of note clonus noted in R>L hand mostly noted when palm extended. Pt is tremulous and had psychomotor agitation, states unable to rewriter clearly in lately. diarhea yesterday afternoon resolved today Physical Exam Psychiatric Orientation: alert, oriented x 3, oriented to person, oriented to place, cooperative (Partially, O refuses to answer some questions, and will not get out of bed.) and + guarded (When topic of her racing thoughts as mentioned) Apperance: appropriately dressed, + disheveled and appeared stated age Eye Contact: + fair eye contact Motor Behavior: + psychomotor retardation and + tremor; n akathisia clonus and twitching and tremor Speech: + abnormal rate/rhythm/volume of speech Affect: + depressed affect, + anxious affect and + blunted affect Mood: + anxious mood Thought Process: goal directed thought process, + perseveration and + concrete thought process intrusive thoughts and images that are quite disturbing to pt Thought Content: + preoccupation, + obsessions, + cognitive distortions (feeling she is undeserving of nice things or decent treatment) and + guilt Suicidal Thoughts: denies suicidal thoughts, denies suicidal plan and denies suicidal intent Homicidal Thoughts: denies homicidal thoughts and denies homicidal intent Hallucinations: no auditory hallucinations, no visual hallucinations and no tactile hallucinations Cognition: language grossly intact; + recent memory not intact, + remote memory not intact and + attention not intact Estimated Intelligence: consistent with education level Insight: + impaired insight Judgement: + impaired judgement Vital Signs (Past 24 Hours) Last Vital Signs Temp 36.3 C L 04/23/19 06:32 Pulse 79 04/22/19 21:05 Resp 16 04/23/19 06:32 BP 121/79 04/22/19 21:05 Pulse Ox 97 04/11/19 06:46 Results & Data Current Inpatient Medications Current Inpatient Medications: Current Inpatient Medications Acetaminophen (Tylenol) 650 mg PO Q4H PRN PRN Reason: Headache or Minor Fever Stop: 04/29/19 19:02 Last Admin: 04/13/19 04:30 Dose: 650 mg Documented by: Al Hydrox/Mg Hydrox/Simethicone (Maalox) 30 ml PO Q4H PRN PRN Reason: GI Upset Stop: 04/29/19 19:02 Bismuth Subsalicylate (Kaopectate) 15 ml PO PRN PRN PRN Reason: Loose Stool Stop: 04/29/19 19:02 Clonazepam (Klonopin) 0.5 mg PO TID PRN PRN Reason: Anxiety Stop: 05/15/19 15:26 Last Admin: 04/22/19 23:00 Dose: 0.5 mg Documented by: Clonazepam (Klonopin) 0.5 mg PO BID PILI Stop: 05/22/19 12:59 Last Admin: 04/23/19 09:08 Dose: 0.5 mg Documented by: Clonidine HCl (Catapres) 0.1 mg PO Q4H PRN PRN Reason: Hypertension Stop: 05/11/19 09:16 Last Admin: 04/15/19 06:56 Dose: 0.1 mg Documented by: Haloperidol (Haldol) 2 mg PO Q4 PRN PRN Reason: Anxiety/Agitation Stop: 05/17/19 14:16 Last Admin: 04/21/19 07:32 Dose: 2 mg Documented by: Lisinopril (Zestril) 15 mg PO BID [facility] Stop: 05/11/19 08:59 Last Admin: 04/23/19 09:08 Dose: 15 mg Documented by: Magnesium Hydroxide (Milk Of Magnesia) 30 ml PO DAILY PRN PRN Reason: Heartburn Stop: 04/29/19 19:02 Last Admin: 04/11/19 13:23 Dose: 30 ml Documented by: Sodium Chloride ([place] Nasal) 1 - 2 sprays NA PRN PRN PRN Reason: Nasal Dryness/Congestion Stop: 04/29/19 19:02 Mental Health & Subst Abuse Tx Psychiatrist Name of Psychiatrist: DEYSI Astudillo Psychiatrist's Date of Appointment with Psychiatrist: 04/29/19 Time of Appointment with Psychiatrist: 2:00 p.m. Psychiatric Appointment Comment: [address] [facility] [address], [place] [address] Therapist Name of Therapist: DEYSI Petersen Therapist's Date of Therapist Appointment: 05/03/19 Time of Therapist Appointment: 1:30 p.m. Therapy Appointment Comment: [address] [facility] [address], [place] [address] Post Discharge Appointments Primary Care Physician Name Of Family Doctor: [facility] - Dr. [facility] Date of Appointment with PCP: 05/10/19 Time of Appointment with PCP: 10:30 a.m. Provider Appointment Comment: [phone], [address], [place] [address] Contact Information Discharge Discharge Address: [address] [place] [id number] CPT Code CPT Code 99396
[2019-04-24] MEDS: clonazePAM 0.5 MG TAB PO PRN (00:19)
[2019-04-24] MEDS: LISINOPRIL 10 MG TAB PO SCH ×2 (08:24→21:00)
[2019-04-24] MEDS: clonazePAM 0.5 MG TAB PO SCH ×2 (08:24→21:04)
--- NOTE | 2019-04-24 19:53 | Psychiatric Progress Note ---
Date of Service April 24, 2019 Impression / Recommendations Impression 73-year-old female with a history of bipolar 1 and generalized anxiety disorder who was admitted voluntarily with severe, debilitating anxiety, depression, and inability to function. She had electrolyte abnormalities on presentation due to poor p.o. intake, was not sleeping, performing ADLs or getting out of bed at home. She has lost weight, is cognitively impaired, and a limited historian. Her care is complex due to bipolar type I with history of freedom, trying to utilize medications to target anxiety while avoiding activation/freedom and akathisia. Ongoing medication adjustments are being pursue d to target these concerns, as well as episodes of EPS. Patient has been more open about intrusive thoughts she has been experiencing for several months prior to her admission. She is extremely distressed by these homicidal thoughts towards her and family, and denies intent to act on them. Inpatient treatment is medically necessary and remains the least restrictive option she is unable to provide for her own basic needs without the care and assistance of others. She is eating very little, is not sleeping adequately, continues to ruminate on intrusive ego dystonic thoughts of harming others. She has been so distraught by thoughts that she has not been participating in groups or therapy, does not feel safe to leave the hospital, and is not appropriate for outpatient care due to the severity of her symptoms. She has had numerous medication adjustments and changes, due to inefficacy or intolerability of multiple agents. She has decompensated over the past few days physically, has not been getting out of bed or participating in treatment, and has had episodes of excessive sweating, shaking, and dizziness when she stands. We are trying to limits her medications given the risk of side effects, and olanzapine has now been stopped. We have requested a medical consult for any assistance or insight they can provide. on 04/22 , we were e concerned that the patient is exhibiting certain symptoms suggestive of a Serotonin Syndrome, including muscle stiffness, worsening cognitive impairment, agitation, pupillary dilatation (bilateral), recent onset diarrhea, and blood pressure alterations. Within this context, we are holding serotonergic medications including mirtazapine, sertraline, and Ambien. We gave Periactin 2mg at 4 doses about 2 hours apart in afternoon into evening on 04/22. given past response to risperdal aiming to retry risperdal, monitoring closely given possible recent serotonin syndrome, goal is risperdal and klonpin to be main 2 meds with avoidance of multiple Meds that can impact serotonin. aware pt had one dose of Risperdal 04/16 and rationale for stopping was orthostatics but bp been orthostatic and variable prior to and after that and seeming to be due to poor po intake and possible serotonin syndrome aspects. will monitor, monitor for EPS concerns as well (1) Bipolar 1 disorder: (1) Bipolar 1 disorder: 03/31 -current episode depressed with severe anxiety. -Clarify home med list, as there are some discrepancies (external medication history shows that she filled #30 olanzapine 10 mg tablets and hydroxyzine 25 mg tablets on 03/18/2019, but admission medication reconciliation indicates olanzapine 15 mg every afternoon and hydralazine 25 mg every afternoon). Nursing staff to call her and clarify this: Patient is not prescribed hydralazine, will remove medication. She did receive a dose last night, and blood pressure this morning was elevated 163/89, but on repeat 124/71. -Increase sertraline to 100 mg daily to target mood and anxiety, and watch for activation/mood stabilization. -It is unclear if her home dose of olanzapine is 10 or 15 mg; she received 15 mg last night, and I am concerned for EPS given her cogwheeling on exam and severe restlessness. Order benztropine 0.5 mg as needed, and reduce olanzapine to 10 milligrams at bedtime. Per she was only on 10mg olanzapine at home. May need to reduce dose further or switch to another antipsychotic if EPS does not improve. -Fasting lipid profile and glucose performed on 09/30/2018 for monitoring on an atypical antipsychotic, and were within normal limits. 04/01 -Contributing to the patient's severe anxiety may be akathisia associated with olanzapine and, possibly, sertraline. I have advised the patient accordingly, and she accepts my recommendation for a standing dose of Artane (trihexyphenidyl) -Patient otherwise indicates that she feels that she has been tolerating olanzapine well, and reports that she feels this medication has been helpful to her. -The patient's dose of sertraline has been increased to 100 mg daily 04/02 -Patient more unsteady today. Will hold any further doses of diphenhydramine for now. She does not have any cogwheeling; once she is able to relax the paratonia disappears -Patient now on moderate dose of SSRI. Reviewed she had been manic at last presentation. Considering Remeron trial which may help with restlessness and anxiety and allow for reduction of some of the anticholinergic medication she has been started on however patient appeared overwhelmed when attempting to discuss today and will defer for reconsideration tomorrow -patient refused physical therapy referral for imbalance today 04/04 - Continue current medication regimen, consider titration of mirtazapine with observation for activation 04/05 - Titrating mirtazapine to 30mg this evening - continue to monitor for possible activation and triggering of manic symptoms - Once efficacy is apparent, consider tapering sertraline to achieve antidepressant monotherapy - Continue remainder of medication regimen unchanged 04/06 - Patient reports mood and restlessness are slightly improved. - Worsening tachycardia with heart rate as high as 130, with worsening after Artane was started. As this medication can cause tachycardia, will decrease it to 1 mg twice daily. 04/07 -Tachycardia has resolved with lowered Artane dose. Restlessness is improved. 04/08 -While the patient's restlessness has improved, today, she continues to complain of restlessness and, on testing, demonstrates persistent cogwheeling. Currently, we will offer the patient a trial of diphenhydramine 12.5 mg twice a day. The target of diphenhydramine in this case is the patient's EPS, but we ar e also hopeful that it will aid in managing the patient's anxiety. -The patient is complaining of persistent anxiety and intrusive, ego dystonic thoughts that she tells me she is embarrassed to discuss. I offered the patient reassurances in this regard. -The patient reports that she is not having suicidal thoughts. 04/09 - 04/10 - Continue current medication regimen, reportedly demonstrating improvement 04/11 - Titrating sertraline to 150mg daily, continue remainder of current medication regimen 04/12 - Continue plan as above 04/13 - Titrating sertraline to 175mg daily, continue remainder of medication regimen for now - Pt reporting significant distress from intrusive thoughts - consider alternative options to reduce distress. Did not tolerate 15 mg dose of olanzapine due to EPS, but could consider split dosing 5 mg / 10 mg. Could also consider retrial of risperidone, or alternative agents. 04/14 - Reviewed medication options above with the patient, who does not desire to change atypical antipsychotic medications at this time. She was agreeable to titrating the dose to 5mg qAM and 10mg qHS. - Continue to monitor for EPS as dose is titrated 04/15 -I again spoke with the patient about possibly changing her antipsychotic, mood stabilizing medication from olanzapine to risperidone. The patient says that she feels fairly strongly that she would prefer to remain on olanzapine because she feels that it does help stabilize her mood. -While the patient does endorse feelings of depression, she tells us that the depression seems to be following her anxiety and distress regarding a series of alien, intrusive ego dystonic thoughts that she has great difficulty dismissing. 04/16--now willing to start Risperdal so d/c hs dose of Zyprexa and replace with Risperdal 1 mg. Reassess in am for cross taper. 04/17--not tolerating Risperdal 1 mg due to orthostasis. Reassess for restart of Zyprexa this hs vs prn Haldol. (2) Generalized anxiety disorder: 03/31 -patient extremely anxious, with negative, ruminative thoughts, and severe restlessness. -Increase sertraline as above. -At home dose of hydroxyzine 25 mg at bedtime, and offer 25 mg every 4 hours as needed anxiety. -Continue clonazepam 0.5 mg every morning, and add 0.5 mg dose twice daily as needed if hydroxyzine an effective, but monitor for unsteadiness and oversedation. 04/01/19 -As noted above, some of the patient's anxious distress may be secondary to eps side effects (akathisia). -On examination, the patient does have cogwheel rigidity. However, she tells me that she feels that she is somewhat less anxious and notes that the medications for her anxiety "may be helping." 04/02 -Patient remains highly anxious. Considered alternative options for bedtime hydroxyzine to reduce anticholinergic burden. Elected to trial the Remeron at 15 mg p.o. nightly which may help off label for feelings of restlessness. Hopefully this will also help to reduce her anxiety and provide some appetite stimulation but will need to watch for mood cycling in combination with the sertraline. If she does well with this agent, could consider using it as antidepressant monotherapy (tapering her off the Zoloft) 04/04 - Continue current medication regimen - consider increase or mirtazapine and possible taper of sertraline as outlined above; wanting to ensure tolerance prior to switching to mirtazapine as monotherapy 04/05 - Titrating mirtazapine to 30mg this evening; will continue sertraline at 100mg until efficacy of mirtazapine can be determined - Continue remainder of medication regimen unchanged 04/08 -As above, we are increasing her dose of sertraline to a dose of 125 mg daily to treat anxiety and depression. We will continue olanzapine to serve as a mood stabilizer given the patient's diagnosis of bipolar disorder. -Also as noted above, we have added diphenhydramine 12.5 mg twice a day for extraparametal side effects, persistent) EPS, and we will discontinue Artane. Hopefully, diphenhydramine will help not only with extraparametal side effects but, also, with the patient's generalized anxiety. -The patient's standing dose of clonazepam has been increased from 0.5 mg in the morning to 0.5 mg 3 times a day. She will also have available to her as needed clonazepam. Material risks and anticipated benefits of clonazepam have been reviewed with the patient, and it has been explained that this is not expected to be a long-term intervention but, instead, is being used to help bring the patient's anxiety under better control so that she can more fruitful he participate in the treatment on the. 04/09 - Continue current medication regimen; consider need for further titration of sertraline to 150mg daily - Patient appearing less restless/anxious, though she describes her symptoms to be unchanged 04/10 - Continue current medication regimen; consider titration of sertraline as above - pt limited in willingness to discuss multiple changes today - Patient's appearance is improving, though she reports limited changes in her condition 04/11 - Titrate sertraline to 150mg daily. Pt reporting daytime sedation, can consider possible reduction of prns at some point, when she begins to be more effective - Pt reporting mild improvements in anxiety 04/12 - Continue sertraline 150mg daily - In attempt to reduce sedation, but maintain progress with reducing anxi ety/restlessness - will titrate diphenhydramine to 25mg daily (this will also allow for medication in capsule form, which patient prefers). Will discontinue scheduled TID clonazepam, but leave available prn dosing should patient require it during the day for anxiety or other concerns. - Staff also reporting apneic episodes observed at night; reducing reliance on benzodiazepines will be ideal as will reduce additional risk for respiratory concerns - Continue to encourage development of healthy and effective coping strategies 04/13 - Titrating sertraline to 175mg daily - Continue remainder of medication regimen as above - Pt has been more open about intrusive homicidal thoughts, distressing, with no intent to act. Pt is very disturbed by these thoughts - Patient unwilling for additional medication adjustments today; however, could consider titration of olanzapine. Patient did experience significant EPS when she received a 15 mg dose early in her admission. Consider split dosing - 5mg/10mg - Also consider retrial for risperidone (beneficial on last admission), possibly as prn and then scheduled in place of olanzapine if effective. Can also consider trial of another atypical antipsychotic which may better target concerns. 04/14 - Continue medication adjustments as above - olanzapine 5mg qAM and 10mg qHS 04/15 -The patient's anxiety symptoms seem to be a combination of anxious distress associated with ego-dystonic intrusive thoughts, as well as restlessness associated with extrapyramidal side effects from her medications. -She has tolerated an increase in her dose of diphenhydramine from 12.5 mg to 25 mg without excess sedation, and she tells us that she much prefers this because she did not like the taste of liquid diphenhydramine. -We are beginning clonazepam 0.5 mg up to 3 times a day as needed for anxiety. The patient has a past history of favorable response to this medication. Material risks, including, but not limited to excess sedation, increased risk of accident, increased risk for falls, physical habituation with complicated withdrawal that may may be fatal and can include seizures, and cognitive impairment. The patient indicates understanding and notes that she has had no problems taking the clonazepam in the past. 04/19 -Diphenhydramine discontinued over the weekend due to anticholinergic side effects. Continue olanzapine 10 mg daily. She has haloperidol 1 mg every 4 hours as needed which she has not yet received. -Continue sertraline 200 mg daily and mirtazapine 30 mg at bedtime. 04/20 -Patient is received several doses of haloperidol 1 mg which has been helpful, and that she is tolerating it well, will increase to 2 mg every 4 hours as needed. If this is effective, can cross taper from olanzapine to haloperidol. -Continue to encourage patient to be out of her room and active during the day, even if unable to tolerate full groups; continued assistance for ADLs. 04/21 -Discontinue olanzapine as has not been effective and due to concern for extrapyramidal symptoms. Continue haloperidol and schedule 2mg 3 times daily, with an as needed dose as well. 04/22 -The patient continues to report feeling depressed, within the context of a history of bipolar disorder. A concern today is that the patient has been receiving multiple serotonergic medications and at the same time, may be exhibiting symptoms of serotonin syndrome. Accordingly, we will be holding mirtazapine, sertraline, and zolpidem. I have disclosed this concern, explained the causes of serotonin syndrome to the patient and she indicated understanding. 04/23 holding psychiatric meds expect for clonazepam a for now given possible serotonin syndrome. appeals writer considering retrial of Risperdal when appropriate given past tolerability (with possibility of titratuating dose past 1mg bid that took in past) if tolerated decently in last trial, recent trial of orthostatic concerns might be more about overall presentation then Risperdal given vitals as whole lately. also Lamictal a possible med option given aim to avoid worsening possible serotonin syndrome. pt not willing to take prior or new Meds currently and appeals writer seeking to hold such trails for now as well. (2) Orthostatic dizziness: started 04/17, repeat labs and monitor sodium (133). 04/18 -BMP notable for hyponatremia with sodium of 132. 04/19 -dizziness resolved, normotensive. Sodium 133. Encourage fluid intake. 04/22 -The patient is on bedrest and is being helped to the bathroom by staff. (3) Sweating abnormality: 04/21 -patient has had multiple episodes over the past few days of excessive sweating, found to be drenched in sweat and tremulous. She has been drinking excessively at times, but other times with poor oral intake. Her sodium has been slightly low. Today she is hypertensive and tachycardic. Will consult the hospitalist service for assistance and to rule out any medical contributors to her current state; reviewed with Dr. Nielsen, and appreciate any recommendations.. 04/22 -It is possible that the symptoms (diaphoresis and hypertension close disease may be secondary to serotonin syndrome. We have obtained a consult from a hospitalist, but the exact etiology has not been determined. (4) Serotonin syndrome: 04/22/19 -Serotonin syndrome is suspected. The patient does present with a number of symptoms that are suggestive of this. These include worsening confusion, muscle stiffness, recent onset diarrhea, diaphoresis, and pupillary dilatation. -We will treat symptomatically with benzodiazepines (Klonopin). She is also been given an order for Periactin 12 mg and we will continue this medication as indicated and tolerated. The diarrhea may be secondary to Periactin. -Serotonergic agents are being held pending further evaluation. 04/23 holding meds that have serotonin impact for now and monitoring vitals and for s/s of serotonin syndrome. with potential for more periactin doses if seems needed. 04/24 improving will attempt retrial of one med - risperdal given past response to it, monitoring closely for s/s serotonin syndrome Risk Factors Assessment Male: No : Yes Do You Have Access To A Gun?: Yes ( has guns that are locked) Health Problems: Yes Mental Health Diagnoses: Yes Substance Use Disorders: No Previous Attempt: No Family History of Suicide: No Previous Psychiatric Hospitalization: Yes Hopelessness: Yes Smoker: No Protective Factors Assessment : Yes Responsible for Young Children: No Employed: No Supportive Family: Yes Good Rapport with Provider: Yes Interval History Identifying Information VALENTINA CLARK is a 73-year-old F who currently lives in [place] with her , has a history of bipolar disorder type I and generalized anxiety dis order, and was admitted on 03/30/19 19:35 on a 201 voluntary commitment for severe anxiety and inability to function. Chief Complaint "anxious". Review of Systems Sleep Information Total Hours of Sleep: 7 Sleep Comments: received a prn dose of klonopin for sleepaid/anxiety management shortly after midnight after awaking Meal Information Percent Meal Consumed - Breakfast: 25 Percent Meal Consumed - Lunch: 25 Percent Meal Consumed - Dinner: 25 Nutrition Comment: Pt. routinely orders only scrambled eggs and takes a few bites, as well as a carnation instant breakfast drink. States her appetitie is poor and is resistant to trying different foods. Subjective Subjective Patient was seen & assessed and interval progress reviewed with nursing and social work, pt was also seen later in day with and then sen this evening to review changes in treatment plan further pt clonus improved. eating only quater of meals still did not sleep well last night pt fixtated on wanting something for sleep pt weary of meds and psosible s/e but open to trial of med to target her smpyotms, and open to retrial of risperdal pt's indicated she was rather imrpvoed and functional from October-February with taking risperdal and klonopin and denied lightheadedness and intrussive thougts much reduced. In February worsened with depressive smyptoms and intrussive thinking, tremoulsous trwitchig of UE b/l started in March. pt stubbed her toe and had pain when walking in am but was able to walk more easily in afternoon. Physical Exam Psychiatric Orientation: alert, oriented x 3, oriented to person, oriented to place and cooperative (Partially, O refuses to answer some questions, and will not get out of bed.) Apperance: appropriately dressed, appropriately groomed, + disheveled and appeared stated age Eye Contact: + fair eye contact Motor Behavior: + psychomotor retardation, + EPS and + tremor Speech: + abnormal rate/rhythm/volume of speech Affect: + depressed affect, + anxious affect and + blunted affect Mood: + depressed mood and + anxious mood Thought Process: goal directed thought process, + thought blocking (appearing as though ruminations are preventing timly response to questions), + perseveration and + concrete thought process Thought Content: + preoccupation, + obsessions, + cognitive distortions (feeling she is undeserving of nice things or decent treatment), reality based without delusions, + delusions, + hopelessness and + guilt Suicidal Thoughts: denies suicidal thoughts, denies suicidal plan and denies suicidal intent Homicidal Thoughts: denies homicidal thoughts and denies homicidal intent Hallucinations: no auditory hallucinations, no visual hallucinations and no tactile hallucinations Cognition: language grossly intact; + recent memory not intact, + remote memory not intact and + attention not intact Estimated Intelligence: consistent with education level and + above average estimated intelligence Insight: + impaired insight Judgement: + impaired judgement Vital Signs (Past 24 Hours) Last Vital Signs Temp 36.5 C 04/24/19 06:31 Pulse 79 04/22/19 21:05 Resp 16 04/24/19 06:31 BP 121/79 04/22/19 21:05 Pulse Ox 97 04/11/19 06:46 Results & Data Current Inpatient Medications Current Inpatient Medications: Current Inpatient Medications Acetaminophen (Tylenol) 650 mg PO Q4H PRN PRN Reason: Headache or Minor Fever Stop: 04/29/19 19:02 Last Admin: 04/13/19 04:30 Dose: 650 mg Documented by: Al Hydrox/Mg Hydrox/Simethicone (Maalox) 30 ml PO Q4H PRN PRN Reason: GI Upset Stop: 04/29/19 19:02 Bismuth Subsalicylate (Kaopectate) 15 ml PO PRN PRN PRN Reason: Loose Stool Stop: 04/29/19 19:02 Clonazepam (Klonopin) 0.5 mg PO TID PRN PRN Reason: Anxiety Stop: 05/15/19 15:26 Last Admin: 04/24/19 00:19 Dose: 0.5 mg Documented by: Clonazepam (Klonopin) 0.5 mg PO BID PILI Stop: 05/22/19 12:59 Last Admin: 04/24/19 08:24 Dose: 0.5 mg Documented by: Clonidine HCl (Catapres) 0.1 mg PO Q4H PRN PRN Reason: Hypertension Stop: 05/11/19 09:16 Last Admin: 04/15/19 06:56 Dose: 0.1 mg Documented by: Haloperidol (Haldol) 2 mg PO Q4 PRN PRN Reason: Anxiety/Agitation Stop: 05/17/19 14:16 Last Admin: 04/21/19 07:32 Dose: 2 mg Documented by: Lisinopril (Zestril) 15 mg PO BID PILI Stop: 05/11/19 08:59 Last Admin: 04/24/19 08:24 Dose: 15 mg Documented by: Magnesium Hydroxide (Milk Of Magnesia) 30 ml PO DAILY PRN PRN Reason: Heartburn Stop: 04/29/19 19:02 Last Admin: 04/11/19 13:23 Dose: 30 ml Documented by: Risperidone (Risperdal) 1 mg PO HS [facility] Stop: 05/24/19 21:59 Risperidone (Risperdal) 0.5 mg PO QAM PILI Stop: 05/25/19 08:59 Sodium Chloride (Sierra Nasal) 1 - 2 sprays NA PRN PRN PRN Reason: Nasal Dryness/Congestion Stop: 04/29/19 19:02 Mental Health & Subst Abuse Tx Psychiatrist Name of Psychiatrist: [facility] Carey Astudillo Psychiatrist's Date of Appointment with Psychiatrist: 04/29/19 Time of Appointment with Psychiatrist: 2:00 p.m. Psychiatric Appointment Comment: [address] [facility] [place] [address] Therapist Name of Therapist: [facility] Carey Petersen Therapist's Date of Therapist Appointment: 05/03/19 Time of Therapist Appointment: 1:30 p.m. Therapy Appointment Comment: [address] [facility] [place] [address] Post Discharge Appointments Primary Care Physician Name Of Family Doctor: [facility] - Dr. Ayala [facility] Date of Appointment with PCP: 05/10/19 Time of Appointment with PCP: 10:30 a.m. Provider Appointment Comment: [address], [address], [place] [address] Contact Information Discharge Discharge Address: [address] [place] [id number] CPT Code CPT Code 61732
[2019-04-24] MEDS: risperiDONE 1 MG TABLET PO SCH (20:59)
[2019-04-24] MEDS ORDERED: risperiDONE 1 MG TABLET PO SCH (21:00)
[2019-04-25] MEDS: clonazePAM 0.5 MG TAB PO PRN (02:46)
[2019-04-25] MEDS: LISINOPRIL 10 MG TAB PO SCH ×2 (07:24→21:18)
[2019-04-25] MEDS: clonazePAM 0.5 MG TAB PO SCH ×2 (07:24→15:47)
[2019-04-25] MEDS: risperiDONE 0.5 MG TABLET PO SCH (07:24)
--- NOTE | 2019-04-25 13:21 | Psychiatric Progress Note ---
Date of Service April 25, 2019 Impression / Recommendations Impression 73-year-old female with a history of bipolar 1 and generalized anxiety disorder who was admitted voluntarily with severe, debilitating anxiety, depression, and inability to function. She had electrolyte abnormalities on presentation due to poor p.o. intake, was not sleeping, performing ADLs or getting out of bed at home. She has lost weight, is cognitively impaired, and a limited historian. Her care is complex due to bipolar type I with history of freedom, trying to utilize medications to target anxiety while avoiding activation/freedom and akathisia. Ongoing medication adjustments are being pursue d to target these concerns, as well as episodes of EPS. Patient has been more open about intrusive thoughts she has been experiencing for several months prior to her admission. She is extremely distressed by these homicidal thoughts towards her and family, and denies intent to act on them. Inpatient treatment is medically necessary and remains the least restrictive option she is unable to provide for her own basic needs without the care and assistance of others. She is eating very little, is not sleeping adequately, continues to ruminate on intrusive ego dystonic thoughts of harming others. She has been so distraught by thoughts that she has not been participating in groups or therapy, does not feel safe to leave the hospital, and is not appropriate for outpatient care due to the severity of her symptoms. She has had numerous medication adjustments and changes, due to inefficacy or intolerability of multiple agents. She has decompensated over the past few days physically, has not been getting out of bed or participating in treatment, and has had episodes of excessive sweating, shaking, and dizziness when she stands. We are trying to limits her medications given the risk of side effects, and olanzapine has now been stopped. We have requested a medical consult for any assistance or insight they can provide. on 04/22 , we were e concerned that the patient is exhibiting certain symptoms suggestive of a Serotonin Syndrome, including muscle stiffness, worsening cognitive impairment, agitation, pupillary dilatation (bilateral), recent onset diarrhea, and blood pressure alterations. Within this context, we are holding serotonergic medications including mirtazapine, sertraline, and Ambien. We gave Periactin 2mg at 4 doses about 2 hours apart in afternoon into evening on 04/22. The patient had previously told us that she would refused to take risperidone because it was not helpful to her. However, her past history suggests that the patient had been responsive to risperidone for a fairly extensive period of time and while she may have suffered a relapse while taking risperidone, we explained to her that this does not necessarily mean that she cannot benefit from the medication. Accordingly, she agreed yesterday to resume risperidone and this medication has been restarted: Risperidone 0.5 mg every morning and 1 mg at bedtime. She indicates that she tolerated it well. We will monitor and titrate as indicated. (1) Bipolar 1 disorder: (1) Bipolar 1 disorder: 03/31 -current episode depressed with severe anxiety. -Clarify home med list, as there are some discrepancies (external medication history shows that she filled #30 olanzapine 10 mg tablets and hydroxyzine 25 mg tablets on 03/18/2019, but admission medication reconciliation indicates olanzapine 15 mg every afternoon and hydralazine 25 mg every afternoon). Nursing staff to call her and clarify this: Patient is not prescribed hydralazine, will remove medication. She did receive a dose last night, and blood pressure this morning was elevated 163/89, but on repeat 124/71. -Increase sertraline to 100 mg daily to target mood and anxiety, and watch for activation/mood stabilization. -It is unclear if her home dose of olanzapine is 10 or 15 mg; she received 15 mg last night, and I am concerned for EPS given her cogwheeling on exam and severe restlessness. Order benztropine 0.5 mg as needed, and reduce olanzapine to 10 milligrams at bedtime. Per she was only on 10mg olanzapine at home. May need to reduce dose further or switch to another antipsychotic if EPS does not improve. -Fasting lipid profile and glucose performed on 09/30/2018 for monitoring on an atypical antipsychotic, and were within normal limits. 04/01 -Contributing to the patient's severe anxiety may be akathisia associated with olanzapine and, possibly, sertraline. I have advised the patient accordingly, and she accepts my recommendation for a standing dose of Artane (trihexyphenidyl) -Patient otherwise indicates that she feels that she has been tolerating olanzapine well, and reports that she feels this medication has been helpful to her. -The patient's dose of sertraline has been increased to 100 mg daily 04/02 -Patient more unsteady today. Will hold any further doses of diphenhydramine for now. She does not have any cogwheeling; once she is able to relax the paratonia disappears -Patient now on moderate dose of SSRI. Reviewed she had been manic at last presentation. Considering Remeron trial which may help with restlessness and anxiety and allow for reduction of some of the anticholinergic medication she has been started on however patient appeared overwhelmed when attempting to discuss today and will defer for reconsideration tomorrow -patient refused physical therapy referral for imbalance today 04/04 - Continue current medication regimen, consider titration of mirtazapine with observation for activation 04/05 - Titrating mirtazapine to 30mg this evening - continue to monitor for possible activation and triggering of manic symptoms - Once efficacy is apparent, consider tapering sertraline to achieve antidepressant monotherapy - Continue remainder of medication regimen unchanged 04/06 - Patient reports mood and restlessness are slightly improved. - Worsening tachycardia with heart rate as high as 130, with worsening after Artane was started. As this medication can cause tachycardia, will decrease it to 1 mg twice daily. 04/07 -Tachycardia has resolved with lowered Artane dose. Restlessness is improved. 04/08 -While the patient's restlessness has improved, today, she continues to complain of restlessness and, on testing, demonstrates persistent cogwheeling. Currently, we will offer the patient a trial of diphenhydramine 12.5 mg twice a day. The target of diphenhydramine in this case is the patient's EPS, but we are also hopeful that it will aid in managing the patient's anxiety. -The patient is complaining of persistent anxiety and intrusive, ego dystonic thoughts that she tells me she is embarrassed to discuss. I offered the patient reassurances in this regard. -The patient reports that she is not having suicidal thoughts. 04/09 - 04/10 - Continue current medication regimen, reportedly demonstrating improvement 04/11 - Titrating sertraline to 150mg daily, continue remainder of current medication regimen 04/12 - Continue plan as above 04/13 - Titrating sertraline to 175mg daily, continue remainder of medication regimen for now - Pt reporting significant distress from intrusive thoughts - consider alternative options to reduce distress. Did not tolerate 15 mg dose of olanzapine due to EPS, but could consider split dosing 5 mg / 10 mg. Could also consider retrial of risperidone, or alternative agents. 04/14 - Reviewed medication options above with the patient, who does not desire to change atypical antipsychotic medications at this time. She was agreeable to titrating the dose to 5mg qAM and 10mg qHS. - Continue to monitor for EPS as dose is titrated 04/15 -I again spoke with the patient about possibly changing her antipsychotic, mood stabilizing medication from olanzapine to risperidone. The patient says that she feels fairly strongly that she would prefer to remain on olanzapine because she feels that it does help stabilize her mood. -While the patient does endorse feelings of depression, she tells us that the depression seems to be following her anxiety and distress regarding a series of alien, intrusive ego dystonic thoughts that she has great difficulty dismissing. 04/16--now willing to start Risperdal so d/c hs dose of Zyprexa and replace with Risperdal 1 mg. Reassess in am for cross taper. 04/17--not tolerating Risperdal 1 mg due to orthostasis. Reassess for restart of Zyprexa this hs vs prn Haldol. (2) Generalized anxiety disorder: 03/31 -patient extremely anxious, with negative, ruminative thoughts, and severe restlessness. -Increase sertraline as above. -At home dose of hydroxyzine 25 mg at bedtime, and offer 25 mg every 4 hours as needed anxiety. -Continue clonazepam 0.5 mg every morning, and add 0.5 mg dose twice daily as needed if hydroxyzine an effective, but monitor for unsteadiness and oversedation. 04/01/19 -As noted above, some of the patient's anxious distress may be secondary to eps side effects (akathisia). -On examination, the patient does have cogwheel rigidity. However, she tells me that she feels that she is somewhat less anxious and notes that the medications for her anxiety "may be helping." 04/02 -Patient remains highly anxious. Considered alternative options for bedtime hydroxyzine to reduce anticholinergic burden. Elected to trial the Remeron at 15 mg p.o. nightly which may help off label for feelings of restlessness. Hopefully this will also help to reduce her anxiety and provide some appetite stimulation but will need to watch for mood cycling in combination with the sertraline. If she does well with this agent, could consider using it as antidepressant monotherapy (tapering her off the Zoloft) 04/04 - Continue current medication regimen - consider increase or mirtazapine and possible taper of sertraline as outlined above; wanting to ensure tolerance prior to switching to mirtazapine as monotherapy 04/05 - Titrating mirtazapine to 30mg this evening; will continue sertraline at 100mg until efficacy of mirtazapine can be determined - Continue remainder of medication regimen unchanged 04/08 -As above, we are increasing her dose of sertraline to a dose of 125 mg daily to treat anxiety and depression. We will continue olanzapine to serve as a mood stabilizer given the patient's diagnosis of bipolar disorder. -Also as noted above, we have added diphenhydramine 12.5 mg twice a day for extraparametal side effects, persistent) EPS, and we will discontinue Artane. Hopefully, diphenhydramine will help not only with extraparametal side effects but, also, with the patient's generalized anxiety. -The patient's standing dose of clonazepam has been increased from 0.5 mg in the morning to 0.5 mg 3 times a day. She will also have available to her as needed clonazepam. Material risks and anticipated benefits of clonazepam have been reviewed with the patient, and it has been explained that this is not expected to be a long-term intervention but, instead, is being used to help bring the patient's anxiety under better control so that she can more fruitful he participate in the treatment on the. 04/09 - Continue current medication regimen; consider need for further titration of sertraline to 150mg daily - Patient appearing less restless/anxious, though she describes her symptoms to be unchanged 04/10 - Continue current medication regimen; consider titration of sertraline as above - pt limited in willingness to discuss multiple changes today - Patient's appearance is improving, though she reports limited changes in her condition 04/11 - Titrate sertraline to 150mg daily. Pt reporting daytime sedation, can consider possible reduction of prns at some point, when she begins to be more effective - Pt reporting mild improvements in anxiety 04/12 - Continue sertraline 150mg daily - In attempt to reduce sedation, but maintain progress with reducing anxiety/restlessness - will titrate diphenhydramine to 25mg daily (this will also allow for medication in capsule form, which patient prefers). Will discontinue scheduled TID clonazepam, but leave available prn dosing should patient require it during the day for anxiety or other concerns. - Staff also reporting apneic episodes observed at night; reducing reliance on benzodiazepines will be ideal as will reduce additional risk for respiratory concerns - Continue to encourage development of healthy and effective coping strategies 04/13 - Titrating sertraline to 175mg daily - Continue remainder of medication regimen as above - Pt has been more open about intrusive homicidal thoughts, distressing, with no intent to act. Pt is very disturbed by these thoughts - Patient unwilling for additional medication adjustments today; however, could consider titration of olanzapine. Patient did experience significant EPS when she received a 15 mg dose early in her admission. Consider split dosing - 5mg/10mg - Also consider retrial for risperidone (beneficial on last admission), possibly as prn and then scheduled in place of olanzapine if effective. Can also consider trial of another atypical antipsychotic which may better target concerns. 04/14 - Continue medication adjustments as above - olanzapine 5mg qAM and 10mg qHS 04/15 -The patient's anxiety symptoms seem to be a combination of anxious distress associated with ego-dystonic intrusive thoughts, as well as restlessness associated with extrapyramidal side effects from her medications. -She has tolerated an increase in her dose of diphenhydramine from 12.5 mg to 25 mg without excess sedation, and she tells us that she much prefers this because she did not like the taste of liquid diphenhydramine. -We are beginning clonazepam 0.5 mg up to 3 times a day as needed for anxiety. The patient has a past history of favorable response to this medication. Material risks, including, but not limited to excess sedation, increased risk of accident, increased risk for falls, physical habituation with complicated withdrawal that may may be fatal and can include seizures, and cognitive impairment. The patient indicates understanding and notes that she has had no problems taking the clonazepam in the past. 04/19 -Diphenhydramine discontinued over the weekend due to anticholinergic side effects. Continue olanzapine 10 mg daily. She has haloperidol 1 mg every 4 hours as needed which she has not yet received. -Continue sertraline 200 mg daily and mirtazapine 30 mg at bedtime. 04/20 -Patient is received several doses of haloperidol 1 mg which has been helpful, and that she is tolerating it well, will increase to 2 mg every 4 hours as needed. If this is effective, can cross taper from olanzapine to haloperidol. -Continue to encourage patient to be out of her room and active during the day, even if unable to tolerate full groups; continued assistance for ADLs. 04/21 -Discontinue olanzapine as has not been effective and due to concern for extrapyramidal symptoms. Continue haloperidol and schedule 2mg 3 times daily, with an as needed dose as well. 04/22 -The patient continues to report feeling depressed, within the context of a history of bipolar disorder. A concern today is that the patient has been receiving multiple serotonergic medications and at the same time, may be exhibiting symptoms of serotonin syndrome. Accordingly, we will be holding mirtazapine, sertraline, and zolpidem. I have disclosed this concern, explained the causes of serotonin syndrome to the patient and she indicated understanding. 04/23 holding psychiatric meds expect for clonazepam a for now given possible serotonin syndrome. senior underwriter considering retrial of Risperdal when appropriate given past tolerability (with possibility of titratuating dose past 1mg bid that took in past) if tolerated decently in last trial, recent trial of orthostatic concerns might be more about overall presentation then Risperdal given vitals as whole lately. also Lamictal a possible med option given aim to avoid worsening possible serotonin syndrome. pt not willing to take prior or new Meds currently and senior underwriter seeking to hold such trails for now as well. 04/25 -Risperidone 0.5 mg in the morning and 1 mg at bedtime has been restarted. The patient previously said that she would refused to take risperidone because it "does not help." However, clinical data indicates that the patient has in t he past responded quite well to risperidone and although she may have experienced an exacerbation of her [id number] while taking risperidone, we have been able to convince her to resume risperidone at this point. In the past, she reportedly has taken risperidone 1 mg twice a day, and we have started at slightly lower than thiswith the plan to titrate as indicated. -We are continuing clonazepam 0.5 mg twice a day (9 and 1600) as well as clonazepam 1 mg at bedtime. The patient appears to be responding favorably to this. (2) Orthostatic dizziness: started 04/17, repeat labs and monitor sodium (133). 04/18 -BMP notable for hyponatremia with sodium of 132. 04/19 -dizziness resolved, normotensive. Sodium 133. Encourage fluid intake. 04/22 -The patient is on bedrest and is being helped to the bathroom by staff. (3) Sweating abnormality: 04/21 -patient has had multiple episodes over the past few days of excessive sweating, found to be drenched in sweat and tremulous. She has been drinking excessively at times, but other times with poor oral intake. Her sodium has been slightly low. Today she is hypertensive and tachycardic. Will consult the hospitalist service for assistance and to rule out any medical contributors to her current state; reviewed with Dr. Nielsen, and appreciate any re commendations.. 04/22 -It is possible that the symptoms (diaphoresis and hypertension close disease may be secondary to serotonin syndrome. We have obtained a consult from a hospitalist, but the exact etiology has not been determined. 04/25 -This appears to have resolved. It may have been a function of serotonin syndrome, or it may have represented panic episodes. (4) Serotonin syndrome: 04/22/19 -Serotonin syndrome is suspected. The patient does present with a number of symptoms that are suggestive of this. These include worsening confusion, muscle stiffness, recent onset diarrhea, diaphoresis, and pupillary dilatation. -We will treat symptomatically with benzodiazepines (Klonopin). She is also been given an order for Periactin 12 mg and we will continue this medication as indicated and tolerated. The diarrhea may be secondary to Periactin. -Serotonergic agents are being held pending further evaluation. 04/23 holding meds that have serotonin impact for now and monitoring vitals and for s/s of serotonin syndrome. with potential for more periactin doses if seems needed. 04/24 improving will attempt retrial of one med - risperdal given past response to it, monitoring closely for s/s serotonin syndrome 04/25 -Muscle stiffness, diaphoresis, diarrhea, extreme anxiety/confusion, and pupillary dilatation all appear to have resolved. Inventory Assets Strengths: Supportive . Cooperative with treatment. Motivated to recovery. Insight into her need for treatment. Intelligent. Needs: [place] from anxiety, mood alterations, and intrusive alien thoughts. Risk Factors Assessment Mental illness. Significant mood alterations. Anxiety. Episodes of hopelessness. Fleeting thoughts of suicide. Mitigating factors include supportive , history of favorable response to treatment, favorable relationship with providers. No history of actual suicide attempts. Male: No : Yes Do You Have Access To A Gun?: Yes ( has guns that are locked) Health Problems: Yes Mental Health Diagnoses: Yes Substance Use Disorders: No Previous Attempt: No Family History of Suicide: No Previous Psychiatric Hospitalization: Yes Hopelessness: Yes Smoker: No Protective Factors Assessment : Yes Responsible for Young Children: No Employed: No Supportive Family: Yes Good Rapport with Provider: Yes Interval History Identifying Information VALENTINA CLARK is a 73-year-old F who currently lives in [place] with her , has a history of bipolar disorder type I and generalized anxiety disorder, and was admitted on 03/30/19 19:35 on a 201 voluntary commitment for severe anxiety and inability to function. Chief Complaint "I did not sleep very well last night.". Review of Systems Sleep Information Total Hours of Sleep: 3.5 Sleep Comments: received a prn dose of klonop for anxiety/sleep aid at 0246. did not fall back to sleep till 0500 rounds. Meal Information Percent Meal Consumed - Breakfast: 10 Percent Meal Consumed - Lunch: 25 Percent Meal Consumed - Dinner: 25 Nutrition Comment: Breakfast a few bites of eggs and 100% nutrition drink Subjective Subjective Patient was seen & assessed and interval progress reviewed with treatment team. I met individually with the patient in order to assess her current mental status, evaluate her response to treatment, make any necessary adjustments in her treatment regimen and coordination with the patient, and address issues and concerns that may arise. Today, the patient tells me that she is feeling "better," and for the first time (with me) she does not qualify "better" by saying "a little bit better" or "may be better." Specifically, she says that she is less anxious, and less "stiff." She also notes that she feels able to participate in group therapy and activities today. As noted above, her main complaint is of not sleeping well last night, and we discussed various strategies for this. During recent encounters, the patient has been quite passive regarding her care and treatment. However, today she makes declarative statements such as, "I usually need a sleeping pill of some sort. For some reason I just do not sleep well without one." The patient is continuing to experience intrusive, alien ego dystonic thoughts, but notes that she feels these have been fairly manageable recently. Also of note is the fact the patient showered yesterday and agreed to wash her hair, something that she had been refusing to do for some time now. Physical Exam Psychiatric Orientation: alert and oriented x 3 Apperance: appropriately dressed and appropriately groomed Eye Contact: + fair eye contact Motor Behavior: steady gait and station; n EPS Speech: normal rate/rhythm/volume of speech Patient is speaking spontaneously, and her voice is now more steady and fluid. Affect: + constricted affect "Better." Thought Process: + concrete thought process Thought Content: reality based without delusions Suicidal Thoughts: denies suicidal thoughts Homicidal Thoughts: denies homicidal thoughts Hallucinations: no auditory hallucinations Cognition: recent memory grossly intact, remote memory grossly intact and language grossly intact Insight: + fair insight Judgement: + fair judgement Vital Signs (Past 24 Hours) Last Vital Signs Temp 36.6 C 04/25/19 07:48 Pulse 82 04/25/19 07:48 Resp 14 04/25/19 07:48 BP 108/64 04/25/19 07:48 Pulse Ox 93 04/25/19 07:48 Results & Data Current Inpatient Medications Current Inpatient Medications: Current Inpatient Medications Acetaminophen (Tylenol) 650 mg PO Q4H PRN PRN Reason: Headache or Minor Fever Stop: 04/29/19 19:02 Last Admin: 04/13/19 04:30 Dose: 650 mg Documented by: Al Hydrox/Mg Hydrox/Simethicone (Maalox) 30 ml PO Q4H PRN PRN Reason: GI Upset Stop: 04/29/19 19:02 Bismuth Subsalicylate (Kaopectate) 15 ml PO PRN PRN PRN Reason: Loose Stool Stop: 04/29/19 19:02 Clonazepam (Klonopin) 0.5 mg PO TID PRN PRN Reason: Anxiety Stop: 05/15/19 15:26 Last Admin: 04/25/19 02:46 Dose: 0.5 mg Documented by: Clonazepam (Klonopin) 1 mg PO HS PILI Stop: 05/25/19 21:59 Clonazepam (Klonopin) 0.5 mg PO BID@0900,1600 PILI Stop: 05/25/19 15:59 Clonidine HCl (Catapres) 0.1 mg PO Q4H PRN PRN Reason: Hypertension Stop: 05/11/19 09:16 Last Admin: 04/15/19 06:56 Dose: 0.1 mg Documented by: Haloperidol (Haldol) 2 mg PO Q4 PRN PRN Reason: Anxiety/Agitation Stop: 05/17/19 14:16 Last Admin: 04/21/19 07:32 Dose: 2 mg Documented by: Lisinopril (Zestril) 15 mg PO BID PILI Stop: 05/11/19 08:59 Last Admin: 04/25/19 07:24 Dose: 15 mg Documented by: Magnesium Hydroxide (Milk Of Magnesia) 30 ml PO DAILY PRN PRN Reason: Heartburn Stop: 04/29/19 19:02 Last Admin: 04/11/19 13:23 Dose: 30 ml Documented by: Risperidone (Risperdal) 1 mg PO HS PILI Stop: 05/24/19 21:59 Last Admin: 04/24/19 20:59 Dose: 1 mg Documented by: Risperidone (Risperdal) 0.5 mg PO QAM [facility] Stop: 05/25/19 08:59 Last Admin: 04/25/19 07:24 Dose: 0.5 mg Documented by: Sodium Chloride ([place] Nasal) 1 - 2 sprays NA PRN PRN PRN Reason: Nasal Dryness/Congestion Stop: 04/29/19 19:02 Mental Health & Subst Abuse Tx Psychiatrist Name of Psychiatrist: DEYSI Astudillo Psychiatrist's Date of Appointment with Psychiatrist: 04/29/19 Time of Appointment with Psychiatrist: 2:00 p.m. Psychiatric Appointment Comment: [address] [facility] [place] [address] Therapist Name of Therapist: DEYSI Petersen Therapist's Date of Therapist Appointment: 05/03/19 Time of Therapist Appointment: 1:30 p.m. Therapy Appointment Comment: [address] [facility] [place] [address] Post Discharge Appointments Primary Care Physician Name Of Family Doctor: [facility] - Dr. Ayala [facility] Date of Appointment with PCP: 05/10/19 Time of Appointment with PCP: 10:30 a.m. Provider Appointment Comment: [address], [address], [place] [address] Contact Information Discharge Discharge Address: [address] [place], [place] [id number] CPT Code CPT Code 32694
[2019-04-25] MEDS: risperiDONE 1 MG TABLET PO SCH (21:15)
[2019-04-25] MEDS: clonazePAM 1 MG TAB PO SCH (21:18)
[2019-04-26] MEDS: clonazePAM 0.5 MG TAB PO SCH ×2 (07:30→15:35)
[2019-04-26] MEDS: LISINOPRIL 10 MG TAB PO SCH ×2 (07:31→21:24)
[2019-04-26] MEDS: risperiDONE 0.5 MG TABLET PO SCH (07:31)
--- NOTE | 2019-04-26 11:04 | Psychiatric Progress Note ---
Date of Service April 26, 2019 Impression / Recommendations Impression 73-year-old female with a history of bipolar 1 and generalized anxiety disorder who was admitted voluntarily with severe, debilitating anxiety, depression, and inability to function. She had electrolyte abnormalities on presentation due to poor p.o. intake, was not sleeping, performing ADLs or getting out of bed at home. She has lost weight, is cognitively impaired, and a limited historian. Her care is complex due to bipolar type I with history of freedom, trying to utilize medications to target anxiety while avoiding activation/freedom and akathisia. Ongoing medication adjustments are being pursu ed to target these concerns, as well as episodes of EPS. Patient has been more open about intrusive thoughts she has been experiencing for several months prior to her admission. She is extremely distressed by these homicidal and sexually themed thoughts towards her and family, and denies intent to act on them. Inpatient treatment is medically necessary and remains the least restrictive option she is unable to provide for her own basic needs without the care and assistance of others. She is eating very little, is not sleeping adequately, continues to ruminate on intrusive ego dystonic thoughts of harming others. She has been so distraught by thoughts that she has not been participating in groups or therapy, does not feel safe to leave the hospital, and is not appropriate for outpatient care due to the severity of her symptoms. She has had numerous medication adjustments and changes, due to inefficacy or intolerability of multiple agents. (1) Bipolar 1 disorder: (1) Bipolar 1 disorder: 03/31 -current episode depressed with severe anxiety. -Clarify home med list, as there are some discrepancies (external medication his tory shows that she filled #30 olanzapine 10 mg tablets and hydroxyzine 25 mg tablets on 03/18/2019, but admission medication reconciliation indicates olanzapine 15 mg every afternoon and hydralazine 25 mg every afternoon). Nursing staff to call her and clarify this: Patient is not prescribed hydralazine, will remove medication. She did receive a dose last night, and blood pressure this morning was elevated 163/89, but on repeat 124/71. -Increase sertraline to 100 mg daily to target mood and anxiety, and watch for activation/mood stabilization. -It is unclear if her home dose of olanzapine is 10 or 15 mg; she received 15 mg last night, and I am concerned for EPS given her cogwheeling on exam and severe restlessness. Order benztropine 0.5 mg as needed, and reduce olanzapine to 10 m illigrams at bedtime. Per she was only on 10mg olanzapine at home. May need to reduce dose further or switch to another antipsychotic if EPS does not improve. -Fasting lipid profile and glucose performed on 09/30/2018 for monitoring on an atypical antipsychotic, and were within normal limits. 04/01 -Contributing to the patient's severe anxiety may be akathisia associated with olanzapine and, possibly, sertraline. I have advised the patient accordingly, and she accepts my recommendation for a standing dose of Artane (trihexyphenidyl) -Patient otherwise indicates that she feels that she has been tolerating olanzapine well, and reports that she feels this medication has been helpful to her. -The patient's dose of sertraline has been increased to 100 mg daily 04/02 -Patient more unsteady today. Will hold any further doses of diphenhydramine for now. She does not have any cogwheeling; once she is able to relax the paratonia disappears -Patient now on moderate dose of SSRI. Reviewed she had been manic at last presentation. Considering Remeron trial which may help with restlessness and anxiety and allow for reduction of some of the anticholinergic medication she has been started on however patient appeared overwhelmed when attempting to discuss today and will defer for reconsideration tomorrow -patient refused physical therapy referral for imbalance today 04/04 - Continue current medication regimen, consider titration of mirtazapine with observation for activation 04/05 - Titrating mirtazapine to 30mg this evening - continue to monitor for possible activation and triggering of manic symptoms - Once efficacy is apparent, consider tapering sertraline to achieve antidepressant monotherapy - Continue remainder of medication regimen unchanged 04/06 - Patient reports mood and restlessness are slightly improved. - Worsening tachycardia with heart rate as high as 130, with worsening after Artane was started. As this medication can cause tachycardia, will decrease it to 1 mg twice daily. 04/07 -Tachycardia has resolved with lowered Artane dose. Restlessness is improved. 04/08 -While the patient's restlessness has improved, today, she continues to complain of restlessness and, on testing, demonstrates persistent cogwheeling. Currently, we will offer the patient a trial of diphenhydramine 12.5 mg twice a day. The target of diphenhydramine in this case is the patient's EPS, but we are also hopeful that it will aid in managing the patient's anxiety. -The patient is complaining of persistent anxiety and intrusive, ego dystonic thoughts that she tells me she is embarrassed to discuss. I offered the patient reassurances in this regard. -The patient reports that she is not having suicidal thoughts. 04/09 - 04/10 - Continue current medication regimen, reportedly demonstrating improvement 04/11 - Titrating sertraline to 150mg daily, continue remainder of current medication regimen 04/12 - Continue plan as above 04/13 - Titrating sertraline to 175mg daily, continue remainder of medication regimen for now - Pt reporting significant distress from intrusive thoughts - consider alternative options to reduce distress. Did not tolerate 15 mg dose of olanzapine due to EPS, but could consider split dosing 5 mg / 10 mg. Could also consider retrial of risperidone, or alternative agents. 04/14 - Reviewed medication options above with the patient, who does not desire to change atypical antipsychotic medications at this time. She was agreeable to titrating the dose to 5mg qAM and 10mg qHS. - Continue to monitor for EPS as dose is titrated 04/15 -I again spoke with the patient about possibly changing her antipsychotic, mood stabilizing medication from olanzapine to risperidone. The patient says that she feels fairly strongly that she would prefer to remain on olanzapine because she feels that it does help stabilize her mood. -While the patient does endorse feelings of depression, she tells us that the depression seems to be following her anxiety and distress regarding a series of alien, intrusive ego dystonic thoughts that she has great difficulty dismissing. 04/16--now willing to start Risperdal so d/c hs dose of Zyprexa and replace with Risperdal 1 mg. Reassess in am for cross taper. 04/17--not tolerating Risperdal 1 mg due to orthostasis. Reassess for restart of Zyprexa this hs vs prn Haldol. (2) Generalized anxiety disorder: 03/31 -patient extremely anxious, with negative, ruminative thoughts, and severe restlessness. -Increase sertraline as above. -At home dose of hydroxyzine 25 mg at bedtime, and offer 25 mg every 4 hours as needed anxiety. -Continue clonazepam 0.5 mg every morning, and add 0.5 mg dose twice daily as needed if hydroxyzine an effective, but monitor for unsteadiness and oversedation. 04/01/19 -As noted above, some of the patient's anxious distress may be secondary to eps side effects (akathisia). -On examination, the patient does have cogwheel rigidity. However, she tells me that she feels that she is somewhat less anxious and notes that the medications for her anxiety "may be helping." 04/02 -Patient remains highly anxious. Considered alternative options for bedtime hydroxyzine to reduce anticholinergic burden. Elected to trial the Remeron at 15 mg p.o. nightly which may help off label for feelings of restlessness. Hopefully this will also help to reduce her anxiety and provide some appetite stimulation but will need to watch for mood cycling in combination with the sertraline. If she does well with this agent, could consider using it as ant idepressant monotherapy (tapering her off the Zoloft) 04/04 - Continue current medication regimen - consider increase or mirtazapine and possible taper of sertraline as outlined above; wanting to ensure tolerance prior to switching to mirtazapine as monotherapy 04/05 - Titrating mirtazapine to 30mg this evening; will continue sertraline at 100mg until efficacy of mirtazapine can be determined - Continue remainder of medication regimen unchanged 04/08 -As above, we are increasing her dose of sertraline to a dose of 125 mg daily to treat anxiety and depression. We will continue olanzapine to serve as a mood stabilizer given the patient's diagnosis of bipolar disorder. -Also as noted above, we have added diphenhydramine 12.5 mg twice a day for extraparametal side effects, persistent) EPS, and we will discontinue Artane. Hopefully, diphenhydramine will help not only with extraparametal side effects but, also, with the patient's generalized anxiety. -The patient's standing dose of clonazepam has been increased from 0.5 mg in the morning to 0.5 mg 3 times a day. She will also have available to her as needed clonazepam. Material risks and anticipated benefits of clonazepam have been reviewed with the patient, and it has been explained that this is not expected to be a long-term intervention but, instead, is being used to help bring the patient's anxiety under better control so that she can more fruitful he participate in the treatment on the. 04/09 - Continue current medication regimen; consider need for further titration of sertraline to 150mg daily - Patient appearing less restless/anxious, though she describes her symptoms to be unchanged 04/10 - Continue current medication regimen; consider titration of sertraline as above - pt limited in willingness to discuss multiple changes today - Patient's appearance is improving, though she reports limited changes in her condition 04/11 - Titrate sertraline to 150mg daily. Pt reporting daytime sedation, can consider possible reduction of prns at some point, when she begins to be more effective - Pt reporting mild improvements in anxiety 04/12 - Continue sertraline 150mg daily - In attempt to reduce sedation, but maintain progress with reducing anxiety/restlessness - will titrate diphenhydramine to 25mg daily (this will also allow for medication in capsule form, which patient prefers). Will discontinue scheduled TID clonazepam, but leave available prn dosing should patient require it during the day for anxiety or other concerns. - Staff also reporting apneic episodes observed at night; reducing reliance on benzodiazepines will be ideal as will reduce additional risk for respiratory concerns - Continue to encourage development of healthy and effective coping strategies 04/13 - Titrating sertraline to 175mg daily - Continue remainder of medication regimen as above - Pt has been more open about intrusive homicidal thoughts, distressing, with no intent to act. Pt is very disturbed by these thoughts - Patient unwilling for additional medication adjustments today; however, could consider titration of olanzapine. Patient did experience significant EPS when she received a 15 mg dose early in her admission. Consider split dosing - 5mg/10mg - Also consider retrial for risperidone (beneficial on last admission), possibly as prn and then scheduled in place of olanzapine if effective. Can also consider trial of another atypical antipsychotic which may better target concerns. 04/14 - Continue medication adjustments as above - olanzapine 5mg qAM and 10mg qHS 04/15 -The patient's anxiety symptoms seem to be a combination of anxious distress associated with ego-dystonic intrusive thoughts, as well as restlessness associated with extrapyramidal side effects from her medications. -She has tolerated an increase in her dose of diphenhydramine from 12.5 mg to 25 mg without excess sedation, and she tells us that she much prefers this because she did not like the taste of liquid diphenhydramine. -We are beginning clonazepam 0.5 mg up to 3 times a day as needed for anxiety. The patient has a past history of favorable response to this medication. Material risks, including, but not limited to excess sedation, increased risk of accident, increased risk for falls, physical habituation with complicated withdrawal that may may be fatal and can include seizures, and cognitive impairment. The patient indicates understanding and notes that she has had no problems taking the clonazepam in the past. 04/19 -Diphenhydramine discontinued over the weekend due to anticholinergic side effects. Continue olanzapine 10 mg daily. She has haloperidol 1 mg every 4 hours as needed which she has not yet received. -Continue sertraline 200 mg daily and mirtazapine 30 mg at bedtime. 04/20 -Patient is received several doses of haloperidol 1 mg which has been helpful, and that she is tolerating it well, will increase to 2 mg every 4 hours as needed. If this is effective, can cross taper from olanzapine to haloperidol. -Continue to encourage patient to be out of her room and active during the day, even if unable to tolerate full groups; continued assistance for ADLs. 04/21 -Discontinue olanzapine as has not been effective and due to concern for extrapyramidal symptoms. Continue haloperidol and schedule 2mg 3 times daily, with an as needed dose as well. 04/22 -The patient continues to report feeling depressed, within the context of a history of bipolar disorder. A concern today is that the patient has been receiving multiple serotonergic medications and at the same time, may be exhibiting symptoms of serotonin syndrome. Accordingly, we will be holding mirtazapine, sertraline, and zolpidem. I have disclosed this concern, explained the causes of serotonin syndrome to the patient and she indicated understanding. 04/23 holding psychiatric meds expect for clonazepam a for now given possible serotonin syndrome. life insurance underwriter considering retrial of Risperdal when appropriate given past tolerability (with possibility of titratuating dose past 1mg bid that took in past) if tolerated decently in last trial, recent trial of orthostatic concerns might be more about overall presentation then Risperdal given vitals as whole lately. also Lamictal a possible med option given aim to avoid worsening possible serotonin syndrome. pt not willing to take prior or new Meds currently and life insurance underwriter seeking to hold such trails for now as well. 04/25 -Risperidone 0.5 mg in the morning and 1 mg at bedtime has been restarted. The patient previously said that she would refused to take risperidone because it "does not help." However, clinical data indicates that the patient has in the past responded quite well to risperidone and although she may have experienced an exacerbation of her [id number] while taking risperidone, we have been able to convince her to resume risperidone at this point. In the past, she reportedly has taken risperidone 1 mg twice a day, and we have started at slightly lower than thiswith the plan to titrate as indicated. -We are continuing clonazepam 0.5 mg twice a day (9 and 1600) as well as clonazepam 1 mg at bedtime. The patient appears to be responding favorably to this. 04/26 -patient appears slightly improved; continue medication adjustments as above. Encourage her to be out of her room and participating to the extent that she is able. (2) Orthostatic dizziness: started 04/17, repeat labs and monitor sodium (133). 04/18 - BMP notable for hyponatremia with sodium of 132. 04/19 -dizziness resolved, normotensive. Sodium 133. Encourage fluid intake. 04/22 - The patient is on bedrest and is being helped to the bathroom by staff. (3) Sweating abnormality: 04/21 -patient has had multiple episodes over the past few days of excessive sweating, found to be drenched in sweat and tremulous. She has been drinking excessively at times, but other times with poor oral intake. Her sodium has been slightly low. Today she is hypertensive and tachycardic. Will consult the hospitalist service for assistance and to rule out any medical contributors to her current state; reviewed with Dr. Nielsen, and appreciate any recommendations.. 04/22 -It is possible that the symptoms (diaphoresis and hypertension close disease may be secondary to serotonin syndrome. We have obtained a consult from a hospitalist, but the exact etiology has not been determined. 04/25 -This appears to have resolved. It may have been a function of serotonin syndrome, or it may have represented panic episodes. (4) Serotonin syndrome: 04/22/19 -Serotonin syndrome is suspected. The patient does present with a number of symptoms that are suggestive of this. These include worsening confusion, muscle stiffness, recent onset diarrhea, diaphoresis, and pupillary dilatation. -We will treat symptomatically with benzodiazepines (Klonopin). She is also been given an order for Periactin 12 mg and we will continue this medication as indicated and tolerated. The diarrhea may be secondary to Periactin. -Serotonergic agents are being held pending further evaluation. 04/23 holding meds that have serotonin impact for now and monitoring vitals and for s/s of serotonin syndrome. with potential for more periactin doses if seems needed. 04/24 improving will attempt retrial of one med - risperdal given past response to it, monitoring closely for s/s serotonin syndrome 04/25 -Muscle stiffness, diaphoresis, diarrhea, extreme anxiety/confusion, and pupillary dilatation all appear to have resolved. Inventory Assets Strengths: Supportive . Cooperative with treatment. Motivated to recovery. Insight into her need for treatment. Intelligent. Needs: [place] from anxiety, mood alterations, and intrusive alien thoughts. Risk Factors Assessment Male: No : Yes Do You Have Access To A Gun?: Yes ( has guns that are locked) Health Problems: Yes Mental Health Diagnoses: Yes Substance Use Disorders: No Previous Attempt: No Family History of Suicide: No Previous Psychiatric Hospitalization: Yes Hopelessness: Yes Smoker: No Protective Factors Assessment : Yes Responsible for Young Children: No Employed: No Supportive Family: Yes Good Rapport with Provider: Yes Interval History Identifying Information VALENTINA CLARK is a 73-year-old F who currently lives in [place] with her , has a history of bipolar disorder type I and generalized anxiety diso rder, and was admitted on 03/30/19 19:35 on a 201 voluntary commitment for severe anxiety and inability to function. Chief Complaint "Not too good right now." Review of Systems Sleep Information Total Hours of Sleep: 7.25 Sleep Comments: pt on q-15 minute checks Meal Information Percent Meal Consumed - Breakfast: 25 Percent Meal Consumed - Lunch: 100 Percent Meal Consumed - Dinner: 100 Nutrition Comment: Breakfast a few bites of eggs and 100% nutrition drink Subjective Subjective Patient was seen & assessed and interval progress reviewed with nursing and social work. She reports sleep was better last night but she feels "jet lagged, spaced out" today, which she attributes to very little sleep 2 nights ago. He does think her recent medication adjustments have helped. She denies thoughts of harming herself or anyone else, but reports ongoing, intrusive, "disgusting" thoughts which are nearly constant and very distressing. She reports impaired focus, and that she is "very far" from her baseline. She reports a good visit from her son and last night, noting that her son came from [place] and surprised her. She has difficulty describing her mood, stating "I haven't given it much thought," but eventually clarifies that she is "a little sad and anxious." She has been able to go to some groups, but states her participation is limited by inability to focus and not wanting to talk about her thoughts as they are so offensive to her. Appetite remains poor and she feels the hospital is "giving me way too much food. There is no way I can eat it." Physical Exam Psychiatric Orientation: alert and cooperative Apperance: appropriately dressed, appropriately groomed and appeared stated age Eye Contact: + fair eye contact Gait is slow and shuffling. No tremor or rigidity. Speech: normal rate/rhythm/volume of speech Affect: + anxious affect Slightly brighter affect "A little sad and anxious." Thought Process: goal directed thought process Ruminating on intrusive, disturbing thoughts. Suicidal Thoughts: denies suicidal thoughts Homicidal Thoughts: denies homicidal thoughts Hallucinations: no auditory hallucinations and no visual hallucinations Cognition: attention grossly intact and language grossly intact Insight: + impaired insight Judgement: + fair judgement Vital Signs (Past 24 Hours) Last Vital Signs Temp 36.6 C 04/26/19 06:51 Pulse 102 H 04/26/19 06:52 Resp 18 04/26/19 06:51 BP 96/64 L 04/26/19 06:52 Pulse Ox 93 04/25/19 07:48 Results & Data Current Inpatient Medications Current Inpatient Medications: Current Inpatient Medications Acetaminophen (Tylenol) 650 mg PO Q4H PRN PRN Reason: Headache or Minor Fever Stop: 04/29/19 19:02 Last Admin: 04/13/19 04:30 Dose: 650 mg Documented by: Al Hydrox/Mg Hydrox/Simethicone (Maalox) 30 ml PO Q4H PRN PRN Reason: GI Upset Stop: 04/29/19 19:02 Bismuth Subsalicylate (Kaopectate) 15 ml PO PRN PRN PRN Reason: Loose Stool Stop: 04/29/19 19:02 Clonazepam (Klonopin) 0.5 mg PO TID PRN PRN Reason: Anxiety Stop: 05/15/19 15:26 Last Admin: 04/25/19 02:46 Dose: 0.5 mg Documented by: Clonazepam (Klonopin) 1 mg PO HS [facility] Stop: 05/25/19 21:59 Last Admin: 04/25/19 21:18 Dose: 1 mg Documented by: Clonazepam (Klonopin) 0.5 mg PO BID@0900,1600 [facility] Stop: 05/25/19 15:59 Last Admin: 04/26/19 07:30 Dose: 0.5 mg Documented by: Clonidine HCl (Catapres) 0.1 mg PO Q4H PRN PRN Reason: Hypertension Stop: 05/11/19 09:16 Last Admin: 04/15/19 06:56 Dose: 0.1 mg Documented by: Haloperidol (Haldol) 2 mg PO Q4 PRN PRN Reason: Anxiety/Agitation Stop: 05/17/19 14:16 Last Admin: 04/21/19 07:32 Dose: 2 mg Documented by: Lisinopril (Zestril) 15 mg PO BID [facility] Stop: 05/11/19 08:59 Last Admin: 04/26/19 07:31 Dose: 15 mg Documented by: Magnesium Hydroxide (Milk Of Magnesia) 30 ml PO DAILY PRN PRN Reason: Heartburn Stop: 04/29/19 19:02 Last Admin: 04/11/19 13:23 Dose: 30 ml Documented by: Risperidone (Risperdal) 1 mg PO HS [facility] Stop: 05/24/19 21:59 Last Admin: 04/25/19 21:15 Dose: 1 mg Documented by: Risperidone (Risperdal) 0.5 mg PO QAM [facility] Stop: 05/25/19 08:59 Last Admin: 04/26/19 07:31 Dose: 0.5 mg Documented by: Sodium Chloride ([place] Nasal) 1 - 2 sprays NA PRN PRN PRN Reason: Nasal Dryness/Congestion Stop: 04/29/19 19:02 Mental Health & Subst Abuse Tx Psychiatrist Name of Psychiatrist: BENJAMIN Carey Astudillo Psychiatrist's Date of Appointment with Psychiatrist: 04/29/19 Time of Appointment with Psychiatrist: 2:00 p.m. Psychiatric Appointment Comment: [address] [place] [address] Therapist Name of Therapist: DEYSI Petersen Therapist's Date of Therapist Appointment: 05/03/19 Time of Therapist Appointment: 1:30 p.m. Therapy Appointment Comment: [address] [place] [address] Post Discharge Appointments Primary Care Physician Name Of Family Doctor: [facility] - Dr. Ayala [facility] Date of Appointment with PCP: 05/10/19 Time of Appointment with PCP: 10:30 a.m. Provider Appointment Comment: [address], [address], [place] [address] Contact Information Discharge Discharge [address] [address] [place] [id number] CPT Code CPT Code 99628
[2019-04-26] MEDS: risperiDONE 1 MG TABLET PO SCH (21:24)
[2019-04-26] MEDS: clonazePAM 1 MG TAB PO SCH (21:24)
--- NOTE | 2019-04-27 07:10 | Psychiatric Progress Note ---
Date of Service April 27, 2019 Impression / Recommendations Impression 73-year-old female with a history of bipolar 1 and generalized anxiety disorder who was admitted voluntarily with severe, debilitating anxiety, depression, and inability to function. She had electrolyte abnormalities on presentation due to poor p.o. intake, was not sleeping, performing ADLs or getting out of bed at home. She has lost weight, is cognitively impaired, and a limited historian. Her care is complex due to bipolar type I with history of freedom, trying to utilize medications to target anxiety while avoiding activation/freedom and akathisia. Ongoing medication adjustments are being pursu ed to target these concerns, as well as episodes of EPS. Patient has been more open about intrusive thoughts she has been experiencing for several months prior to her admission. She is extremely distressed by these homicidal and sexually themed thoughts towards her and family, and denies intent to act on them. Inpatient treatment is medically necessary and remains the least restrictive option she is unable to provide for her own basic needs without the care and assistance of others. She is eating very little, is not sleeping adequately, continues to ruminate on intrusive ego dystonic thoughts of harming others. She has been so distraught by thoughts that she has not been participating in groups or therapy, does not feel safe to leave the hospital, and is not appropriate for outpatient care due to the severity of her symptoms. She has had numerous medication adjustments and changes, due to inefficacy or intolerability of multiple agents. (1) Bipolar 1 disorder: (1) Bipolar 1 disorder: 03/31 -current episode depressed with severe anxiety. -Clarify home med list, as there are some discrepancies (external medication his tory shows that she filled #30 olanzapine 10 mg tablets and hydroxyzine 25 mg tablets on 03/18/2019, but admission medication reconciliation indicates olanzapine 15 mg every afternoon and hydralazine 25 mg every afternoon). Nursing staff to call her and clarify this: Patient is not prescribed hydralazine, will remove medication. She did receive a dose last night, and blood pressure this morning was elevated 163/89, but on repeat 124/71. -Increase sertraline to 100 mg daily to target mood and anxiety, and watch for activation/mood stabilization. -It is unclear if her home dose of olanzapine is 10 or 15 mg; she received 15 mg last night, and I am concerned for EPS given her cogwheeling on exam and severe restlessness. Order benztropine 0.5 mg as needed, and reduce olanzapine to 10 m illigrams at bedtime. Per she was only on 10mg olanzapine at home. May need to reduce dose further or switch to another antipsychotic if EPS does not improve. -Fasting lipid profile and glucose performed on 09/30/2018 for monitoring on an atypical antipsychotic, and were within normal limits. 04/01 -Contributing to the patient's severe anxiety may be akathisia associated with olanzapine and, possibly, sertraline. I have advised the patient accordingly, and she accepts my recommendation for a standing dose of Artane (trihexyphenidyl) -Patient otherwise indicates that she feels that she has been tolerating olanzapine well, and reports that she feels this medication has been helpful to her. -The patient's dose of sertraline has been increased to 100 mg daily 04/02 -Patient more unsteady today. Will hold any further doses of diphenhydramine for now. She does not have any cogwheeling; once she is able to relax the paratonia disappears -Patient now on moderate dose of SSRI. Reviewed she had been manic at last presentation. Considering Remeron trial which may help with restlessness and anxiety and allow for reduction of some of the anticholinergic medication she has been started on however patient appeared overwhelmed when attempting to discuss today and will defer for reconsideration tomorrow -patient refused physical therapy referral for imbalance today 04/04 - Continue current medication regimen, consider titration of mirtazapine with observation for activation 04/05 - Titrating mirtazapine to 30mg this evening - continue to monitor for possible activation and triggering of manic symptoms - Once efficacy is apparent, consider tapering sertraline to achieve antidepressant monotherapy - Continue remainder of medication regimen unchanged 04/06 - Patient reports mood and restlessness are slightly improved. - Worsening tachycardia with heart rate as high as 130, with worsening after Artane was started. As this medication can cause tachycardia, will decrease it to 1 mg twice daily. 04/07 -Tachycardia has resolved with lowered Artane dose. Restlessness is improved. 04/08 -While the patient's restlessness has improved, today, she continues to complain of restlessness and, on testing, demonstrates persistent cogwheeling. Currently, we will offer the patient a trial of diphenhydramine 12.5 mg twice a day. The target of diphenhydramine in this case is the patient's EPS, but we are also hopeful that it will aid in managing the patient's anxiety. -The patient is complaining of persistent anxiety and intrusive, ego dystonic thoughts that she tells me she is embarrassed to discuss. I offered the patient reassurances in this regard. -The patient reports that she is not having suicidal thoughts. 04/09 - 04/10 - Continue current medication regimen, reportedly demonstrating improvement 04/11 - Titrating sertraline to 150mg daily, continue remainder of current medication regimen 04/12 - Continue plan as above 04/13 - Titrating sertraline to 175mg daily, continue remainder of medication regimen for now - Pt reporting significant distress from intrusive thoughts - consider alternative options to reduce distress. Did not tolerate 15 mg dose of olanzapine due to EPS, but could consider split dosing 5 mg / 10 mg. Could also consider retrial of risperidone, or alternative agents. 04/14 - Reviewed medication options above with the patient, who does not desire to change atypical antipsychotic medications at this time. She was agreeable to titrating the dose to 5mg qAM and 10mg qHS. - Continue to monitor for EPS as dose is titrated 04/15 -I again spoke with the patient about possibly changing her antipsychotic, mood stabilizing medication from olanzapine to risperidone. The patient says that she feels fairly strongly that she would prefer to remain on olanzapine because she feels that it does help stabilize her mood. -While the patient does endorse feelings of depression, she tells us that the depression seems to be following her anxiety and distress regarding a series of alien, intrusive ego dystonic thoughts that she has great difficulty dismissing. 04/16--now willing to start Risperdal so d/c hs dose of Zyprexa and replace with Risperdal 1 mg. Reassess in am for cross taper. 04/17--not tolerating Risperdal 1 mg due to orthostasis. Reassess for restart of Zyprexa this hs vs prn Haldol. (2) Generalized anxiety disorder: 03/31 -patient extremely anxious, with negative, ruminative thoughts, and severe restlessness. -Increase sertraline as above. -At home dose of hydroxyzine 25 mg at bedtime, and offer 25 mg every 4 hours as needed anxiety. -Continue clonazepam 0.5 mg every morning, and add 0.5 mg dose twice daily as needed if hydroxyzine an effective, but monitor for unsteadiness and oversedation. 04/01/19 -As noted above, some of the patient's anxious distress may be secondary to eps side effects (akathisia). -On examination, the patient does have cogwheel rigidity. However, she tells me that she feels that she is somewhat less anxious and notes that the medications for her anxiety "may be helping." 04/02 -Patient remains highly anxious. Considered alternative options for bedtime hydroxyzine to reduce anticholinergic burden. Elected to trial the Remeron at 15 mg p.o. nightly which may help off label for feelings of restlessness. Hopefully this will also help to reduce her anxiety and provide some appetite stimulation but will need to watch for mood cycling in combination with the sertraline. If she does well with this agent, could consider using it as ant idepressant monotherapy (tapering her off the Zoloft) 04/04 - Continue current medication regimen - consider increase or mirtazapine and possible taper of sertraline as outlined above; wanting to ensure tolerance prior to switching to mirtazapine as monotherapy 04/05 - Titrating mirtazapine to 30mg this evening; will continue sertraline at 100mg until efficacy of mirtazapine can be determined - Continue remainder of medication regimen unchanged 04/08 -As above, we are increasing her dose of sertraline to a dose of 125 mg daily to treat anxiety and depression. We will continue olanzapine to serve as a mood stabilizer given the patient's diagnosis of bipolar disorder. -Also as noted above, we have added diphenhydramine 12.5 mg twice a day for extraparametal side effects, persistent) EPS, and we will discontinue Artane. Hopefully, diphenhydramine will help not only with extraparametal side effects but, also, with the patient's generalized anxiety. -The patient's standing dose of clonazepam has been increased from 0.5 mg in the morning to 0.5 mg 3 times a day. She will also have available to her as needed clonazepam. Material risks and anticipated benefits of clonazepam have been reviewed with the patient, and it has been explained that this is not expected to be a long-term intervention but, instead, is being used to help bring the patient's anxiety under better control so that she can more fruitful he participate in the treatment on the. 04/09 - Continue current medication regimen; consider need for further titration of sertraline to 150mg daily - Patient appearing less restless/anxious, though she describes her symptoms to be unchanged 04/10 - Continue current medication regimen; consider titration of sertraline as above - pt limited in willingness to discuss multiple changes today - Patient's appearance is improving, though she reports limited changes in her condition 04/11 - Titrate sertraline to 150mg daily. Pt reporting daytime sedation, can consider possible reduction of prns at some point, when she begins to be more effective - Pt reporting mild improvements in anxiety 04/12 - Continue sertraline 150mg daily - In attempt to reduce sedation, but maintain progress with reducing anxiety/restlessness - will titrate diphenhydramine to 25mg daily (this will also allow for medication in capsule form, which patient prefers). Will discontinue scheduled TID clonazepam, but leave available prn dosing should patient require it during the day for anxiety or other concerns. - Staff also reporting apneic episodes observed at night; reducing reliance on benzodiazepines will be ideal as will reduce additional risk for respiratory concerns - Continue to encourage development of healthy and effective coping strategies 04/13 - Titrating sertraline to 175mg daily - Continue remainder of medication regimen as above - Pt has been more open about intrusive homicidal thoughts, distressing, with no intent to act. Pt is very disturbed by these thoughts - Patient unwilling for additional medication adjustments today; however, could consider titration of olanzapine. Patient did experience significant EPS when she received a 15 mg dose early in her admission. Consider split dosing - 5mg/10mg - Also consider retrial for risperidone (beneficial on last admission), possibly as prn and then scheduled in place of olanzapine if effective. Can also consider trial of another atypical antipsychotic which may better target concerns. 04/14 - Continue medication adjustments as above - olanzapine 5mg qAM and 10mg qHS 04/15 -The patient's anxiety symptoms seem to be a combination of anxious distress associated with ego-dystonic intrusive thoughts, as well as restlessness associated with extrapyramidal side effects from her medications. -She has tolerated an increase in her dose of diphenhydramine from 12.5 mg to 25 mg without excess sedation, and she tells us that she much prefers this because she did not like the taste of liquid diphenhydramine. -We are beginning clonazepam 0.5 mg up to 3 times a day as needed for anxiety. The patient has a past history of favorable response to this medication. Material risks, including, but not limited to excess sedation, increased risk of accident, increased risk for falls, physical habituation with complicated withdrawal that may may be fatal and can include seizures, and cognitive impairment. The patient indicates understanding and notes that she has had no problems taking the clonazepam in the past. 04/19 -Diphenhydramine discontinued over the weekend due to anticholinergic side effects. Continue olanzapine 10 mg daily. She has haloperidol 1 mg every 4 hours as needed which she has not yet received. -Continue sertraline 200 mg daily and mirtazapine 30 mg at bedtime. 04/20 -Patient is received several doses of haloperidol 1 mg which has been helpful, and that she is tolerating it well, will increase to 2 mg every 4 hours as needed. If this is effective, can cross taper from olanzapine to haloperidol. -Continue to encourage patient to be out of her room and active during the day, even if unable to tolerate full groups; continued assistance for ADLs. 04/21 -Discontinue olanzapine as has not been effective and due to concern for extrapyramidal symptoms. Continue haloperidol and schedule 2mg 3 times daily, with an as needed dose as well. 04/22 -The patient continues to report feeling depressed, within the context of a history of bipolar disorder. A concern today is that the patient has been receiving multiple serotonergic medications and at the same time, may be exhibiting symptoms of serotonin syndrome. Accordingly, we will be holding mirtazapine, sertraline, and zolpidem. I have disclosed this concern, explained the causes of serotonin syndrome to the patient and she indicated understanding. 04/23 holding psychiatric meds expect for clonazepam a for now given possible serotonin syndrome. financial writer considering retrial of Risperdal when appropriate given past tolerability (with possibility of titratuating dose past 1mg bid that took in past) if tolerated decently in last trial, recent trial of orthostatic concerns might be more about overall presentation then Risperdal given vitals as whole lately. also Lamictal a possible med option given aim to avoid worsening possible serotonin syndrome. pt not willing to take prior or new Meds currently and financial writer seeking to hold such trails for now as well. 04/25 -Risperidone 0.5 mg in the morning and 1 mg at bedtime has been restarted. The patient previously said that she would refused to take risperidone because it "does not help." However, clinical data indicates that the patient has in the past responded quite well to risperidone and although she may have experienced an exacerbation of her [id number] while taking risperidone, we have been able to convince her to resume risperidone at this point. In the past, she reportedly has taken risperidone 1 mg twice a day, and we have started at slightly lower than thiswith the plan to titrate as indicated. -We are continuing clonazepam 0.5 mg twice a day (9 and 1600) as well as clonazepam 1 mg at bedtime. The patient appears to be responding favorably to this. 04/26 -patient appears slightly improved; continue medication adjustments as above. Encourage her to be out of her room and participating to the extent that she is able. 04/28 -encourage patient to be up during the day to consolidate and improve sleep at night. (2) Orthostatic dizziness: started 04/17, repeat labs and monitor sodium (133). 04/18 - BMP notable for hyponatremia with sodium of 132. 04/19 -dizziness resolved, normotensive. Sodium 133. Encourage fluid intake. 04/22 - The patient is on bedrest and is being helped to the bathroom by staff. (3) Sweating abnormality: 04/21 -patient has had multiple episodes over the past few days of excessive sweating, found to be drenched in sweat and tremulous. She has been drinking excessively at times, but other times with poor oral intake. Her sodium has been slightly low. Today she is hypertensive and tachycardic. Will consult the hospitalist service for assistance and to rule out any medical contributors to her current state; reviewed with Dr. Nielsen, and appreciate any recommendations.. 04/22 -It is possible that the symptoms (diaphoresis and hypertension close disease may be secondary to serotonin syndrome. We have obtained a consult from a hospitalist, but the exact etiology has not been determined. 04/25 -This appears to have resolved. It may have been a function of serotonin syndrome, or it may have represented panic episodes. (4) Serotonin syndrome: 04/22/19 -Serotonin syndrome is suspected. The patient does present with a number of symptoms that are suggestive of this. These include worsening confusion, muscle stiffness, recent onset diarrhea, diaphoresis, and pupillary dilatation. -We will treat symptomatically with benzodiazepines (Klonopin). She is also been given an order for Periactin 12 mg and we will continue this medication as indicated and tolerated. The diarrhea may be secondary to Periactin. -Serotonergic agents are being held pending further evaluation. 04/23 holding meds that have serotonin impact for now and monitoring vitals and for s/s of serotonin syndrome. with potential for more periactin doses if seems needed. 04/24 improving will attempt retrial of one med - risperdal given past response to it, monitoring closely for s/s serotonin syndrome 04/25 -Muscle stiffness, diaphoresis, diarrhea, extreme anxiety/confusion, and pupillary dilatation all appear to have resolved. Inventory Assets Strengths: Supportive . Cooperative with treatment. Motivated to recovery. Insight into her need for treatment. Intelligent. Needs: Bellamy from anxiety, mood alterations, and intrusive alien thoughts. Risk Factors Assessment Male: No : Yes Do You Have Access To A Gun?: Yes ( has guns that are locked) Health Problems: Yes Mental Health Diagnoses: Yes Substance Use Disorders: No Previous Attempt: No Family History of Suicide: No Previous Psychiatric Hospitalization: Yes Hopelessness: Yes Smoker: No Protective Factors Assessment : Yes Responsible for Young Children: No Employed: No Supportive Family: Yes Good Rapport with Provider: Yes Interval History Identifying Information VALENTINA CLARK is a 73-year-old F who currently lives in [place] with her , has a history of bipolar disorder type I and generalized anxiety disorder, and was admitted on 03/30/19 19:35 on a 201 voluntary commitment for severe anxiety and inability to function. Chief Complaint "I don't know, I never know how to answer these questions". Review of Systems Sleep Information Total Hours of Sleep: 6 Sleep Comments: pt on q-15 minute checks Meal Information Percent Meal Consumed - Breakfast: 25 Percent Meal Consumed - Lunch: 100 Percent Meal Consumed - Dinner: 50 Nutrition Comment: Breakfast a few bites of eggs and 100% nutrition drink Subjective Subjective Patient was seen & assessed and interval progress reviewed with treatment team. Staff report she is slowly improving, asked for a journal to write in, and appeared to enjoy her visit with her son from [place]. She continues to report poor sleep and restlessness at night. Her cognition is improved with better memory of previous conversations. On my assessment, the patient states that she is not sure how to describe her mood, but notes that anxiety has improved "a little." She continues to report restless sleep, and although she is tired today, is going to stay up and hopes that she will sleep better tonight. She continues to report intrusive, distressing thoughts that she does not want to discuss further. She does feel clear cognitively and has been out of her room more. Physical Exam Psychiatric Orientation: alert and cooperative Apperance: appropriately dressed and appropriately groomed Eye Contact: good eye contact Slow gait Speech slightly slowed Affect mildly depressed and anxious, but more reactive than previously "I do not know how to answer that question" Thought Process: goal directed thought process Thought Content: reality based without delusions Reports ongoing intrusive, distressing, ego dystonic thoughts Suicidal Thoughts: denies suicidal thoughts Homicidal Thoughts: denies homicidal thoughts Hallucinations: no auditory hallucinations Cognition: attention grossly intact and language grossly intact Insight: + impaired insight Judgement: + impaired judgement Vital Signs (Past 24 Hours) Last Vital Signs Temp 36.6 C 04/27/19 06:51 Pulse 106 H 04/27/19 06:52 Resp 20 04/27/19 06:51 BP 145/91 H 04/27/19 06:52 Pulse Ox 93 04/25/19 07:48 Results & Data Current Inpatient Medications Current Inpatient Medications: Current Inpatient Medications Acetaminophen (Tylenol) 650 mg PO Q4H PRN PRN Reason: Headache or Minor Fever Stop: 04/29/19 19:02 Last Admin: 04/13/19 04:30 Dose: 650 mg Documented by: Al Hydrox/Mg Hydrox/Simethicone (Maalox) 30 ml PO Q4H PRN PRN Reason: GI Upset Stop: 04/29/19 19:02 Bismuth Subsalicylate (Kaopectate) 15 ml PO PRN PRN PRN Reason: Loose Stool Stop: 04/29/19 19:02 Clonazepam (Klonopin) 0.5 mg PO TID PRN PRN Reason: Anxiety Stop: 05/15/19 15:26 Last Admin: 04/25/19 02:46 Dose: 0.5 mg Documented by: Clonazepam (Klonopin) 1 mg PO HS [facility] Stop: 05/25/19 21:59 Last Admin: 04/26/19 21:24 Dose: 1 mg Documented by: Clonazepam (Klonopin) 0.5 mg PO BID@0900,1600 [facility] Stop: 05/25/19 15:59 Last Admin: 04/26/19 15:35 Dose: 0.5 mg Documented by: Clonidine HCl (Catapres) 0.1 mg PO Q4H PRN PRN Reason: Hypertension Stop: 05/11/19 09:16 Last Admin: 04/15/19 06:56 Dose: 0.1 mg Documented by: Haloperidol (Haldol) 2 mg PO Q4 PRN PRN Reason: Anxiety/Agitation Stop: 05/17/19 14:16 Last Admin: 04/21/19 07:32 Dose: 2 mg Documented by: Lisinopril (Zestril) 15 mg PO BID [facility] Stop: 05/11/19 08:59 Last Admin: 04/26/19 21:24 Dose: 15 mg Documented by: Magnesium Hydroxide (Milk Of Magnesia) 30 ml PO DAILY PRN PRN Reason: Heartburn Stop: 04/29/19 19:02 Last Admin: 04/11/19 13:23 Dose: 30 ml Documented by: Risperidone (Risperdal) 1 [address] [facility] Stop: 05/24/19 21:59 Last Admin: 04/26/19 21:24 Dose: 1 mg Documented by: Risperidone (Risperdal) [facility] [place] Stop: 05/25/19 08:59 Last Admin: 04/26/19 07:31 Dose: 0.5 mg Documented by: Sodium Chloride ([place] Nasal) 1 - 2 sprays NA PRN PRN PRN Reason: Nasal Dryness/Congestion Stop: 04/29/19 19:02 Mental Health & Subst Abuse Tx Psychiatrist Name of Psychiatrist: [facility] Carey Astudillo Psychiatrist's Date of Appointment with Psychiatrist: 04/29/19 Time of Appointment with Psychiatrist: 2:00 p.m. Psychiatric Appointment Comment: [address] [facility] [place] [address] Therapist Name of Therapist: DEYSI Petersen Therapist's Date of Therapist Appointment: 05/03/19 Time of Therapist Appointment: 1:30 p.m. Therapy Appointment Comment: [address] [facility] [place] [address] Post Discharge Appointments Primary Care Physician Name Of Family Doctor: [facility] - Dr. Ayala [facility] Date of Appointment with PCP: 05/10/19 Time of Appointment with PCP: 10:30 a.m. Provider Appointment Comment: [address], [address], [place] [address] Contact Information Discharge Discharge Address: [address] [place] [id number] CPT Code CPT Code 25304
[2019-04-27] MEDS: LISINOPRIL 10 MG TAB PO SCH ×2 (07:42→20:32)
[2019-04-27] MEDS: risperiDONE 0.5 MG TABLET PO SCH (07:42)
[2019-04-27] MEDS: clonazePAM 0.5 MG TAB PO SCH ×2 (07:42→17:12)
[2019-04-27] MEDS: clonazePAM 1 MG TAB PO SCH (20:31)
[2019-04-27] MEDS: risperiDONE 1 MG TABLET PO SCH (20:32)
[2019-04-28] MEDS: LISINOPRIL 10 MG TAB PO SCH ×2 (07:30→21:03)
[2019-04-28] MEDS: risperiDONE 0.5 MG TABLET PO SCH (07:30)
[2019-04-28] MEDS: clonazePAM 0.5 MG TAB PO SCH ×2 (07:30→15:55)
[2019-04-28] MEDS: ACETAMINOPHEN 325 MG TAB PO PRN ×2 (07:45→20:16)
--- NOTE | 2019-04-28 11:44 | Psychiatric Progress Note ---
Date of Service April 28, 2019 Impression / Recommendations Impression 73-year-old female with a history of bipolar 1 and generalized anxiety disorder who was admitted voluntarily with severe, debilitating anxiety, depression, and inability to function. She had electrolyte abnormalities on presentation due to poor p.o. intake, was not sleeping, performing ADLs or getting out of bed at home. She has lost weight, is cognitively impaired, and a limited historian. Her care is complex due to bipolar type I with history of freedom, trying to utilize medications to target anxiety while avoiding activation/freedom and akathisia. Ongoing medication adjustments are being pursu ed to target these concerns, as well as episodes of EPS. Patient has been more open about intrusive thoughts she has been experiencing for several months prior to her admission. She is extremely distressed by these homicidal and sexually themed thoughts towards her and family, and denies intent to act on them. Inpatient treatment is medically necessary and remains the least restrictive option she is unable to provide for her own basic needs without the care and assistance of others. She is eating very little, is not sleeping adequately, continues to ruminate on intrusive ego dystonic thoughts of harming others. She has been so distraught by thoughts that she has not been participating in groups or therapy, does not feel safe to leave the hospital, and is not appropriate for outpatient care due to the severity of her symptoms. She has had numerous medication adjustments and changes, due to inefficacy or intolerability of multiple agents. We have stopped meds other then clonazepam and retrial fo risperidone with seeming to notice some improvements in past few days but pt presentation is worsened some this morning (04/28) perhaps tied to her flank pain concerns and her ruminations about them. attempting to obtain UA given flank pain but pt distress towards UA has us holding that for now with aim to obtain UA by tomorrow if flank pain not resolved (1) Bipolar 1 disorder: (1) Bipolar 1 disorder: 03/31 -current episode depressed with severe anxiety. -Clarify home med list, as there are some discrepancies (external medication history shows that she filled #30 olanzapine 10 mg tablets and hydroxyzine 25 mg tablets on 03/18/2019, but admission medication reconciliation indicates olanzapine 15 mg every afternoon and hydralazine 25 mg every afternoon). Nursing staff to call her and clarify this: Patient is not prescribed hydralazine, will remove medication. She did receive a dose last night, and blood pressure this morning was elevated 163/89, but on repeat 124/71. -Increase sertraline to 100 mg daily to target mood and anxiety, and watch for activation/mood stabilization. -It is unclear if her home dose of olanzapine is 10 or 15 mg; she received 15 mg last night, and I am concerned for EPS given her cogwheeling on exam and severe restlessness. Order benztropine 0.5 mg as needed, and reduce olanzapine to 10 milligrams at bedtime. Per she was only on 10mg olanzapine at home. May need to reduce dose further or switch to another antipsychotic if EPS does not improve. -Fasting lipid profile and glucose performed on 09/30/2018 for monitoring on an atypical antipsychotic, and were within normal limits. 04/01 -Contributing to the patient's severe anxiety may be akathisia associated w ith olanzapine and, possibly, sertraline. I have advised the patient accordingly, and she accepts my recommendation for a standing dose of Artane (trihexyphenidyl) -Patient otherwise indicates that she feels that she has been tolerating olanzapine well, and reports that she feels this medication has been helpful to her. -The patient's dose of sertraline has been increased to 100 mg daily 04/02 -Patient more unsteady today. Will hold any further doses of diphenhydramine for now. She does not have any cogwheeling; once she is able to relax the paratonia disappears -Patient now on moderate dose of SSRI. Reviewed she had been manic at last presentation. Considering Remeron trial which may help with restlessness and anxiety and allow for reduction of some of the anticholinergic medication she has been started on however patient appeared overwhelmed when attempting to discuss today and will defer for reconsideration tomorrow -patient refused physical therapy referral for imbalance today 04/04 - Continue current medication regimen, consider titration of mirtazapine with observation for activation 04/05 - Titrating mirtazapine to 30mg this evening - continue to monitor for poss ible activation and triggering of manic symptoms - Once efficacy is apparent, consider tapering sertraline to achieve antidepressant monotherapy - Continue remainder of medication regimen unchanged 04/06 - Patient reports mood and restlessness are slightly improved. - Worsening tachycardia with heart rate as high as 130, with worsening after Artane was started. As this medication can cause tachycardia, will decrease it to 1 mg twice daily. 04/07 -Tachycardia has resolved with lowered Artane dose. Restlessness is improved. 04/08 -While the patient's restlessness has improved, today, she continues to complain of restlessness and, on testing, demonstrates persistent cogwheeling. Currently, we will offer the patient a trial of diphenhydramine 12.5 mg twice a day. The target of diphenhydramine in this case is the patient's EPS, but we are also hopeful that it will aid in managing the patient's anxiety. -The patient is complaining of persistent anxiety and intrusive, ego dystonic thoughts that she tells me she is embarrassed to discuss. I offered the patient reassurances in this regard. -The patient reports that she is not having suicidal thoughts. 04/09 - 04/10 - Continue current medication regimen, reportedly demonstrating improvement 04/11 - Titrating sertraline to 150mg daily, continue remainder of current medication regimen 04/12 - Continue plan as above 04/13 - Titrating sertraline to 175mg daily, continue remainder of medication regimen for now - Pt reporting significant distress from intrusive thoughts - consider alternative options to reduce distress. Did not tolerate 15 mg dose of olanzapine due to EPS, but could consider split dosing 5 mg / 10 mg. Could also consider retrial of risperidone, or alternative agents. 04/14 - Reviewed medication options above with the patient, who does not desire to change atypical antipsychotic medications at this time. She was agreeable to titrating the dose to 5mg qAM and 10mg qHS. - Continue to monitor for EPS as dose is titrated 04/15 -I again spoke with the patient about possibly changing her antipsychotic, mood stabilizing medication from olanzapine to risperidone. The patient says that she feels fairly strongly that she would prefer to remain on olanzapine because she feels that it does help stabilize her mood. -While the patient does endorse feelings of depression, she tells us that the depression seems to be following her anxiety and distress regarding a series of alien, intrusive ego dystonic thoughts that she has great difficulty dismissing. 04/16--now willing to start Risperdal so d/c hs dose of Zyprexa and replace with Risperdal 1 mg. Reassess in am for cross taper. 04/17--not tolerating Risperdal 1 mg due to orthostasis. Reassess for restart of Zyprexa this hs vs prn Haldol. (2) Generalized anxiety disorder: 03/31 -patient extremely anxious, with negative, ruminative thoughts, and severe restlessness. -Increase sertraline as above. -At home dose of hydroxyzine 25 mg at bedtime, and offer 25 mg every 4 hours as needed anxiety. -Continue clonazepam 0.5 mg every morning, and add 0.5 mg dose twice daily as needed if hydroxyzine an effective, but monitor for unsteadiness and oversedation. 04/01/19 -As noted above, some of the patient's anxious distress may be secondary to eps side effects (akathisia). -On examination, the patient does have cogwheel rigidity. However, she tells me that she feels that she is somewhat less anxious and notes that the medications for her anxiety "may be helping." 04/02 -Patient remains highly anxious. Considered alternative options for bedtime hydroxyzine to reduce anticholinergic burden. Elected to trial the Remeron at 15 mg p.o. nightly which may help off label for feelings of restlessness. Hopefully this will also help to reduce her anxiety and provide some appetite stimulation but will need to watch for mood cycling in combination with the sertraline. If she does well with this agent, could consider using it as antidepressant monotherapy (tapering her off the Zoloft) 04/04 - Continue current medication regimen - consider increase or mirtazapine and possible taper of sertraline as outlined above; wanting to ensure tolerance prior to switching to mirtazapine as monotherapy 04/05 - Titrating mirtazapine to 30mg this evening; will continue sertraline at 100mg until efficacy of mirtazapine can be determined - Continue remainder of medication regimen unchanged 04/08 -As above, we are increasing her dose of sertraline to a dose of 125 mg daily to treat anxiety and depression. We will continue olanzapine to serve as a mood stabilizer given the patient's diagnosis of bipolar disorder. -Also as noted above, we have added diphenhydramine 12.5 mg twice a day for extraparametal side effects, persistent) EPS, and we will discontinue Artane. Hopefully, diphenhydramine will help not only with extraparametal side effects but, also, with the patient's generalized anxiety. -The patient's standing dose of clonazepam has been increased from 0.5 mg in the morning to 0.5 mg 3 times a day. She will also have available to her as needed clonazepam. Material risks and anticipated benefits of clonazepam have been reviewed with the patient, and it has been explained that this is not expected to be a long-term intervention but, instead, is being used to help bring the patient's anxiety under better control so that she can more fruitful he participate in the treatment on the. 04/09 - Continue current medication regimen; consider need for further titration of sertraline to 150mg daily - Patient appearing less restless/anxious, though she describes her symptoms to be unchanged 04/10 - Continue current medication regimen; consider titration of sertraline as above - pt limited in willingness to discuss multiple changes today - Patient's appearance is improving, though she reports limited changes in her condition 04/11 - Titrate sertraline to 150mg daily. Pt reporting daytime sedation, can consider possible reduction of prns at some point, when she begins to be more effective - Pt reporting mild improvements in anxiety 04/12 - Continue sertraline 150mg daily - In attempt to reduce sedation, but maintain progress with reducing anxiety/restlessness - will titrate diphenhydramine to 25mg daily (this will also allow for medication in capsule form, which patient prefers). Will discontinue scheduled TID clonazepam, but leave available prn dosing should patient require it during the day for anxiety or other concerns. - Staff also reporting apneic episodes observed at night; reducing reliance on benzodiazepines will be ideal as will reduce additional risk for respiratory concerns - Continue to encourage development of healthy and effective coping strategies 04/13 - Titrating sertraline to 175mg daily - Continue remainder of medication regimen as above - Pt has been more open about intrusive homicidal thoughts, distressing, with no intent to act. Pt is very disturbed by these thoughts - Patient unwilling for additional medication adjustments today; however, could consider titration of olanzapine. Patient did experience significant EPS when she received a 15 mg dose early in her admission. Consider split dosing - 5mg/10mg - Also consider retrial for risperidone (beneficial on last admission), possibly as prn and then scheduled in place of olanzapine if effective. Can also consider trial of another atypical antipsychotic which may better target concerns. 04/14 - Continue medication adjustments as above - olanzapine 5mg qAM and 10mg qHS 04/15 -The patient's anxiety symptoms seem to be a combination of anxious distress associated with ego-dystonic intrusive thoughts, as well as restlessness associated with extrapyramidal side effects from her medications. -She has tolerated an increase in her dose of diphenhydramine from 12.5 mg to 25 mg without excess sedation, and she tells us that she much prefers this because she did not like the taste of liquid diphenhydramine. -We are beginning clonazepam 0.5 mg up to 3 times a day as needed for anxiety. The patient has a past history of favorable response to this medication. Material risks, including, but not limited to excess sedation, increased risk of accident, increased risk for falls, physical habituation with complicated withdrawal that may may be fatal and can include seizures, and cognitive impairment. The patient indicates understanding and notes that she has had no problems taking the clonazepam in the past. 04/19 -Diphenhydramine discontinued over the weekend due to anticholinergic side effects. Continue olanzapine 10 mg daily. She has haloperidol 1 mg every 4 hours as needed which she has not yet received. -Continue sertraline 200 mg daily and mirtazapine 30 mg at bedtime. 04/20 -Patient is received several doses of haloperidol 1 mg which has been helpful, and that she is tolerating it well, will increase to 2 mg every 4 hours as needed. If this is effective, can cross taper from olanzapine to haloperidol. -Continue to encourage patient to be out of her room and active during the day, even if unable to tolerate full groups; continued assistance for ADLs. 04/21 -Discontinue olanzapine as has not been effective and due to concern for extrapyramidal symptoms. Continue haloperidol and schedule 2mg 3 times daily, with an as needed dose as well. 04/22 -The patient continues to report feeling depressed, within the context of a history of bipolar disorder. A concern today is that the patient has been receiving multiple serotonergic medications and at the same time, may be exhibiting symptoms of serotonin syndrome. Accordingly, we will be holding mirtazapine, sertraline, and zolpidem. I have disclosed this concern, explained the causes of serotonin syndrome to the patient and she indicated understanding. 04/23 holding psychiatric meds expect for clonazepam a for now given possible serotonin syndrome. pattern chart writer considering retrial of Risperdal when appropriate given past tolerability (with possibility of titratuating dose past 1mg bid that took in past) if tolerated decently in last trial, recent trial of orthostatic concerns might be more about overall presentation then Risperdal given vitals as whole lately. also Lamictal a possible med option given aim to avoid worsening possible serotonin syndrome. pt not willing to take prior or new Meds currently and pattern chart writer seeking to hold such trails for now as well. 04/25 -Risperidone 0.5 mg in the morning and 1 mg at bedtime has been restarted. The patient previously said that she would refused to take risperidone because it "does not help." However, clinical data indicates that the patient has in the past responded quite well to risperidone and although she may have experienced an exacerbation of her [id number] while taking risperidone, we have been able to convince her to resume risperidone at this point. In the past, she reportedly has taken risperidone 1 mg twice a day, and we have started at slightly lower than thiswith the plan to titrate as indicated. -We are continuing clonazepam 0.5 mg twice a day (9 and 1600) as well as clonazepam 1 mg at bedtime. The patient appears to be responding favorably to this. 04/26 -patient appears slightly improved; continue medication adjustments as above. Encourage her to be out of her room and participating to the extent that she is able. 04/27 -encourage patient to be up during the day to consolidate and improve sleep at night. 04/28 - maintained risperidone at current dose with consideration of titrating dose up slightly if progress being obtaining appears to be plateauing. maintained Klonopin at current dosage. (2) Orthostatic dizziness: started 04/17, repeat labs and monitor sodium (133). 04/18 - BMP notable for hyponatremia with sodium of 132. 04/19 -dizziness resolved, normotensive. Sodium 133. Encourage fluid intake. 04/22 - The patient is on bedrest and is being helped to the bathroom by staff. (3) Sweating abnormality: 04/21 -patient has had multiple episodes over the past few days of excessive sweating, found to be drenched in sweat and tremulous. She has been drinking excessively at times, but other times with poor oral intake. Her sodium has been slightly low. Today she is hypertensive and tachycardic. Will consult the hospitalist service for assistance and to rule out any medical contributors to her current state; reviewed with Dr. Nielsen, and appreciate any recommendations.. 04/22 -It is possible that the symptoms (diaphoresis and hypertension close disease may be secondary to serotonin syndrome. We have obtained a consult from a hospitalist, but the exact etiology has not been determined. 04/25 -This appears to have resolved. It may have been a function of serotonin syndrome, or it may have represented panic episodes. (4) Serotonin syndrome: 04/22/19 -Serotonin syndrome is suspected. The patient does present with a number of symptoms that are suggestive of this. These include worsening confusion, muscle stiffness, recent onset diarrhea, diaphoresis, and pupillary dilatation. -We will treat symptomatically with benzodiazepines (Klonopin). She is also been given an order for Periactin 12 mg and we will continue this medication as indicated and tolerated. The diarrhea may be secondary to Periactin. -Serotonergic agents are being held pending further evaluation. 04/23 holding meds that have serotonin impact for now and monitoring vitals and for s/s of serotonin syndrome. with potential for more periactin doses if seems needed. 04/24 improving will attempt retrial of one med - risperdal given past response to it, monitoring closely for s/s serotonin syndrome 04/25 -Muscle stiffness, diaphoresis, diarrhea, extreme anxiety/confusion, and pupillary dilatation all appear to have resolved. Inventory Assets Strengths: Supportive . Cooperative with treatment. Motivated to recovery. Insight into her need for treatment. Intelligent. Needs: Novelty from anxiety, mood alterations, and intrusive alien thoughts. Risk Factors Assessment Male: No : Yes Do You Have Access To A Gun?: Yes ( has guns that are locked) Health Problems: Yes Mental Health Diagnoses: Yes Substance Use Disorders: No Previous Attempt: No Family History of Suicide: No Previous Psychiatric Hospitalization: Yes Hopelessness: Yes Smoker: No Protective Factors Assessment : Yes Responsible for Young Children: No Employed: No Supportive Family: Yes Good Rapport with Provider: Yes Interval History Identifying Information VALENTINA CLARK is a 73-year-old F who currently lives in [place] with her , has a history of bipolar disorder type I and generalized anxiety disorder, and was admitted on 03/30/19 19:35 on a 201 voluntary commitment for severe anxiety and inability to function. Chief Complaint "[]". [phone]) Review of Systems Sleep Information Total Hours of Sleep: 7.5 Sleep Comments: pt on q-15 minute checks Meal Information Percent Meal Consumed - Breakfast: 25 Percent Meal Consumed - Lunch: 33 Percent Meal Consumed - Dinner: 25 Nutrition Comment: Breakfast a few bites of eggs and 100% nutrition drink Subjective Subjective Patient was seen & assessed and interval progress reviewed with treatment team and was seen with medical student Jaime observing. Pt complains of flank pain that started overnight, She reproted it started due to having to urinate at night. She took Tylenol and was given a warm compress and reports that the pain has decreased but is still impacting her. She indicated how not up to taking a sower currently due to how she is feeling .She several times asked if she could be excused wanting the assessment to end but was willing to extend the assessment some as pattern chart writer inquired further about how she was doing. She endorsed poor sleep last night due to having trouble falling back asleep last night after having to urinate. She denied SI. She reports eating only about a quarter of her meals. She shared how boost is overly sweet tasting to her. She reported finding some of the groups were good but was unable to provide further details about the groups. She repeatedly requested to not have ot provide a urine sample. She indicated that she knows that she her urine is not the issue given her history and that she finds the process of providing an urine sample quite distressful, this was her focus in today's assessment. Pt appears to have been doing better yesterday afternoon and evening but tends to do worse in the mornings. Physical Exam Psychiatric Orientation: alert, oriented x 3, oriented to person, oriented to place, cooperative and + guarded (When topic of her racing thoughts as mentioned) Apperance: appropriately dressed, appropriately groomed and appeared stated age Eye Contact: + fair eye contact Motor Behavior: steady gait and station, + psychomotor retardation and + tremor; n EPS and n akathisia Speech: normal rate/rhythm/volume of speech Affect: + depressed affect, + anxious affect and + blunted affect Mood: + depressed mood and + anxious mood Thought Process: goal directed thought process, clear/coherent thought process, + thought blocking (appearing as though ruminations are preventing timly response to questions), + perseveration and + concrete thought process Thought Content: + preoccupation, + obsessions, + paranoid, + cognitive distortions (feeling she is undeserving of nice things or decent treatment), reality based without delusions, + delusions and + guilt Suicidal Thoughts: denies suicidal thoughts, denies suicidal plan and denies suicidal intent Homicidal Thoughts: denies homicidal thoughts and denies homicidal intent Hallucinations: no auditory hallucinations, no visual hallucinations and no tactile hallucinations Cognition: recent memory grossly intact, remote memory grossly intact, attention grossly intact and language grossly intact Estimated Intelligence: consistent with education level and + above average estimated intelligence Insight: + impaired insight Judgement: + impaired judgement Vital Signs (Past 24 Hours) Last Vital Signs Temp 34.6 C L 04/28/19 06:46 Pulse 112 H 04/28/19 06:48 Resp 16 04/28/19 06:46 BP 102/69 04/28/19 06:48 Pulse Ox 93 04/25/19 07:48 Results & Data Current Inpatient Medications Current Inpatient Medications: Current Inpatient Medications Acetaminophen (Tylenol) 650 mg PO Q4H PRN PRN Reason: Headache or Minor Fever Stop: 04/29/19 19:02 Last Admin: 04/28/19 07:45 Dose: 650 mg Documented by: Al Hydrox/Mg Hydrox/Simethicone (Maalox) 30 ml PO Q4H PRN PRN Reason: GI Upset Stop: 04/29/19 19:02 Bismuth Subsalicylate (Kaopectate) 15 ml PO PRN PRN PRN Reason: Loose Stool Stop: 04/29/19 19:02 Clonazepam (Klonopin) 0.5 mg PO TID PRN PRN Reason: Anxiety Stop: 05/15/19 15:26 Last Admin: 04/25/19 02:46 Dose: 0.5 mg Documented by: Clonazepam (Klonopin) 1 mg PO HS PILI Stop: 05/25/19 21:59 Last Admin: 04/27/19 20:31 Dose: 1 mg Documented by: Clonazepam (Klonopin) 0.5 mg PO BID@0900,1600 [facility] Stop: 05/25/19 15:59 Last Admin: 04/28/19 07:30 Dose: 0.5 mg Documented by: Clonidine HCl (Catapres) 0.1 mg PO Q4H PRN PRN Reason: Hypertension Stop: 05/11/19 09:16 Last Admin: 04/15/19 06:56 Dose: 0.1 mg Documented by: Haloperidol (Haldol) 2 mg PO Q4 PRN PRN Reason: Anxiety/Agitation Stop: 05/17/19 14:16 Last Admin: 04/21/19 07:32 Dose: 2 mg Documented by: Lisinopril (Zestril) 15 mg PO BID PILI Stop: 05/11/19 08:59 Last Admin: 04/28/19 07:30 Dose: 15 mg Documented by: Magnesium Hydroxide (Milk Of Magnesia) 30 ml PO DAILY PRN PRN Reason: Heartburn Stop: 04/29/19 19:02 Last Admin: 04/11/19 13:23 Dose: 30 ml Documented by: Risperidone (Risperdal) 1 mg PO HS [facility] Stop: 05/24/19 21:59 Last Admin: 04/27/19 20:32 Dose: 1 mg Documented by: Risperidone (Risperdal) 0.5 mg PO QAM [facility] Stop: 05/25/19 08:59 Last Admin: 04/28/19 07:30 Dose: 0.5 mg Documented by: Sodium Chloride (Graves Nasal) 1 - 2 sprays NA PRN PRN PRN Reason: Nasal Dryness/Congestion Stop: 04/29/19 19:02 Mental Health & Subst Abuse Tx Psychiatrist Name of Psychiatrist: DEYSI Astudillo Psychiatrist's Date of Appointment with Psychiatrist: 04/29/19 Time of Appointment with Psychiatrist: 2:00 p.m. Psychiatric Appointment Comment: [address] [facility] [place] [address] Therapist Name of Therapist: DEYSI Petersen Therapist's Date of Therapist Appointment: 05/03/19 Time of Therapist Appointment: 1:30 p.m. Therapy Appointment Comment: [address] [place] [address] Post Discharge Appointments Primary Care Physician Name Of Family Doctor: [facility] - Dr. Ayala [facility] Date of Appointment with PCP: 05/10/19 Time of Appointment with PCP: 10:30 a.m. Provider Appointment Comment: [address], [address], [place] [address] Contact Information Discharge Discharge Address: [address] [place] [address] [place] [address] CPT Code CPT Code 82325
[2019-04-28] MEDS: risperiDONE 1 MG TABLET PO SCH (21:04)
[2019-04-28] MEDS: clonazePAM 1 MG TAB PO SCH (21:04)
[2019-04-29] MEDS: clonazePAM 0.5 MG TAB PO SCH ×2 (07:50→15:46)
[2019-04-29] MEDS: risperiDONE 0.5 MG TABLET PO SCH (07:51)
[2019-04-29] MEDS: LISINOPRIL 10 MG TAB PO SCH ×2 (07:51→20:35)
[2019-04-29] MEDS: ACETAMINOPHEN 325 MG TAB PO PRN ×2 (07:56→20:34)
[2019-04-29] MEDS ORDERED: ALUMINUM/MAGNESIUM SUSP 30 ML UDC PO PRN (17:48)
[2019-04-29] MEDS ORDERED: BISMUTH SUBSALICYLATE SUSP PO PRN (17:50)
[2019-04-29] MEDS ORDERED: SODIUM CHLORIDE 0.65% NA SOLN 45 ML (OCEAN) PRN (17:54)
[2019-04-29] MEDS ORDERED: MAGNESIUM HYDROXIDE SUSP 30 ML UDC PO PRN (17:57)
--- NOTE | 2019-04-29 18:10 | Psychiatric Progress Note ---
Date of Service April 29, 2019 Impression / Recommendations Impression 73-year-old female with a history of bipolar 1 and generalized anxiety disorder who was admitted voluntarily with severe, debilitating anxiety, depression, and inability to function. She had electrolyte abnormalities on presentation due to poor p.o. intake, was not sleeping, performing ADLs or getting out of bed at home. She has lost weight, is cognitively impaired, and a limited historian. Her care is complex due to bipolar type I with history of freedom, trying to utilize medications to target anxiety while avoiding activation/freedom and akathisia. Ongoing medication adjustments are being pursu ed to target these concerns, as well as episodes of EPS. Patient has been more open about intrusive thoughts she has been experiencing for several months prior to her admission. She is extremely distressed by these homicidal and sexually themed thoughts towards her and family, and denies intent to act on them. Inpatient treatment is medically necessary and remains the least restrictive option she is unable to provide for her own basic needs without the care and assistance of others. She is eating very little, is not sleeping adequately, continues to ruminate on intrusive ego dystonic thoughts of harming others. She has been so distraught by thoughts that she has not been participating in groups or therapy, does not feel safe to leave the hospital, and is not appropriate for outpatient care due to the severity of her symptoms. She has had numerous medication adjustments and changes, due to inefficacy or intolerability of multiple agents. Patient reports that she is feeling better, and then becomes somewhat more anxious when she realizes that this may be interpreted as a reason to discharge her to home. We had a somewhat extended discussion regarding when she will feel ready to go home. I asked her if her had commented on her condition and she added that he, too, feels that she is doing better. However, she emphasizes that she does not feel well enough "quite yet" to go home and indicates that she has several issues that she still wants to work on. She is reluctant to discuss them with me, and I assume that they may have something to do with the i ntrusive, ego dystonic thoughts that she has experienced previously. Overall, the patient's affect is much brighter, she is more animated, she is able to participate in groups, and she is more active in the milieu. She also appears to be more other oriented at this point. (1) Bipolar 1 disorder: (1) Bipolar 1 disorder: 03/31 -current episode depressed with severe anxiety. -Clarify home med list, as there are some discrepancies (external medication history shows that she filled #30 olanzapine 10 mg tablets and hydroxyzine 25 mg tablets on 03/18/2019, but admission medication reconciliation indicates olanzapine 15 mg every afternoon and hydralazine 25 mg every afternoon). Nursing staff to call her and clarify this: Patient is not prescribed hydralazine, will remove medication. She did receive a dose last night, and blood pressure this morning was elevated 163/89, but on repeat 124/71. -Increase sertraline to 100 mg daily to target mood and anxiety, and watch for activation/mood stabilization. -It is unclear if her home dose of olanzapine is 10 or 15 mg; she received 15 mg last night, and I am concerned for EPS given her cogwheeling on exam and severe restlessness. Order benztropine 0.5 mg as needed, and reduce olanzapine to 10 milligrams at bedtime. Per she was only on 10mg olanzapine at home. May need to reduce dose further or switch to another antipsychotic if EPS does not improve. -Fasting lipid profile and glucose performed on 09/30/2018 for monitoring on an atypical antipsychotic, and were within normal limits. 04/01 -Contributing to the patient's severe anxiety may be akathisia associated with olanzapine and, possibly, sertraline. I have advised the patient accordingly, and she accepts my recommendation for a standing dose of Artane (trihexyphenidyl) -Patient otherwise indicates that she feels that she has been tolerating olanzapine well, and reports that she feels this medication has been helpful to her. -The patient's dose of sertraline has been increased to 100 mg daily 04/02 -Patient more unsteady today. Will hold any further doses of diphenhydramine for now. She does not have any cogwheeling; once she is able to relax the paratonia disappears -Patient now on moderate dose of SSRI. Reviewed she had been manic at last presentation. Considering Remeron trial which may help with restlessness and anxiety and allow for reduction of some of the anticholinergic medication she has been started on however patient appeared overwhelmed when attempting to discuss today and will defer for reconsideration tomorrow -patient refused physical therapy referral for imbalance today 04/04 - Continue current medication regimen, consider titration of mirtazapine with observation for activation 04/05 - Titrating mirtazapine to 30mg this evening - continue to monitor for possible activation and triggering of manic symptoms - Once efficacy is apparent, consider tapering sertraline to achieve antidepressant monotherapy - Continue remainder of medication regimen unchanged 04/06 - Patient reports mood and restlessness are slightly improved. - Worsening tachycardia with heart rate as high as 130, with worsening after Artane was started. As this medication can cause tachycardia, will decrease it to 1 mg twice daily. 04/07 -Tachycardia has resolved with lowered Artane dose. Restlessness is improved. 04/08 -While the patient's restlessness has improved, today, she continues to complain of restlessness and, on testing, demonstrates persistent cogwheeling. Currently, we will offer the patient a trial of diphenhydramine 12.5 mg twice a day. The target of diphenhydramine in this case is the patient's EPS, but we are also hopeful that it will aid in managing the patient's anxiety. -The patient is complaining of persistent anxiety and intrusive, ego dystonic thoughts that she tells me she is embarrassed to discuss. I offered the patient reassurances in this regard. -The patient reports that she is not having suicidal thoughts. 04/09 - 04/10 - Continue current medication regimen, reportedly demonstrating improvement 04/11 - Titrating sertraline to 150mg daily, continue remainder of current medication regimen 04/12 - Continue plan as above 04/13 - Titrating sertraline to 175mg daily, continue remainder of medication regimen for now - Pt reporting significant distress from intrusive thoughts - consider alternative options to reduce distress. Did not tolerate 15 mg dose of olanzapine due to EPS, but could consider split dosing 5 mg / 10 mg. Could also consider retrial of risperidone, or alternative agents. 04/14 - Reviewed medication options above with the patient, who does not desire to change atypical antipsychotic medications at this time. She was agreeable to titrating the dose to 5mg qAM and 10mg qHS. - Continue to monitor for EPS as dose is titrated 04/15 -I again spoke with the patient about possibly changing her antipsychotic, mood stabilizing medication from olanzapine to risperidone. The patient says that she feels fairly strongly that she would prefer to remain on olanzapine because she feels that it does help stabilize her mood. -While the patient does endorse feelings of depression, she tells us that the depression seems to be following her anxiety and distress regarding a series of alien, intrusive ego dystonic thoughts that she has great difficulty dismissing. 04/16--now willing to start Risperdal so d/c hs dose of Zyprexa and replace with Risperdal 1 mg. Reassess in am for cross taper. 04/17--not tolerating Risperdal 1 mg due to orthostasis. Reassess for restart of Zyprexa this hs vs prn Haldol. (2) Generalized anxiety disorder: 03/31 -patient extremely anxious, with negative, ruminative thoughts, and severe restlessness. -Increase sertraline as above. -At home dose of hydroxyzine 25 mg at bedtime, and offer 25 mg every 4 hours as needed anxiety. -Continue clonazepam 0.5 mg every morning, and add 0.5 mg dose twice daily as needed if hydroxyzine an effective, but monitor for unsteadiness and oversedation. 04/01/19 -As noted above, some of the patient's anxious distress may be secondary to eps side effects (akathisia). -On examination, the patient does have cogwheel rigidity. However, she tells me that she feels that she is somewhat less anxious and notes that the medicat ions for her anxiety "may be helping." 04/02 -Patient remains highly anxious. Considered alternative options for bedtime hydroxyzine to reduce anticholinergic burden. Elected to trial the Remeron at 15 mg p.o. nightly which may help off label for feelings of restlessness. Hopefully this will also help to reduce her anxiety and provide some appetite stimulation but will need to watch for mood cycling in combination with the sertraline. If she does well with this agent, could consider using it as antidepressant monotherapy (tapering her off the Zoloft) 04/04 - Continue current medication regimen - consider increase or mirtazapine and possible taper of sertraline as outlined above; wanting to ensure tolerance prior to switching to mirtazapine as monotherapy 04/05 - Titrating mirtazapine to 30mg this evening; will continue sertraline at 100mg until efficacy of mirtazapine can be determined - Continue remainder of medication regimen unchanged 04/08 -As above, we are increasing her dose of sertraline to a dose of 125 mg daily to treat anxiety and depression. We will continue olanzapine to serve as a mood stabilizer given the patient's diagnosis of bipolar disorder. -Also as noted above, we have added diphenhydramine 12.5 mg twice a day for extraparametal side effects, persistent) EPS, and we will discontinue Artane. Hopefully, diphenhydramine will help not only with extraparametal side effects but, also, with the patient's generalized anxiety. -The patient's standing dose of clonazepam has been increased from 0.5 mg in the morning to 0.5 mg 3 times a day. She will also have available to her as needed clonazepam. Material risks and anticipated benefits of clonazepam have been reviewed with the patient, and it has been explained that this is not expected to be a long-term intervention but, instead, is being used to help bring the patient's anxiety under better control so that she can more fruitful he participate in the treatment on the. 04/09 - Continue current medication regimen; consider need for further titration of sertraline to 150mg daily - Patient appearing less restless/anxious, though she describes her symptoms to be unchanged 04/10 - Continue current medication regimen; consider titration of sertraline as above - pt limited in willingness to discuss multiple changes today - Patient's appearance is improving, though she reports limited changes in her condition 04/11 - Titrate sertraline to 150mg daily. Pt reporting daytime sedation, can consider possible reduction of prns at some point, when she begins to be more effective - Pt reporting mild improvements in anxiety 04/12 - Continue sertraline 150mg daily - In attempt to reduce sedation, but maintain progress with reducing anxiety/restlessness - will titrate diphenhydramine to 25mg daily (this will also allow for medication in capsule form, which patient prefers). Will discontinue scheduled TID clonazepam, but leave available prn dosing should patient require it during the day for anxiety or other concerns. - Staff also reporting apneic episodes observed at night; reducing reliance on benzodiazepines will be ideal as will reduce additional risk for respiratory concerns - Continue to encourage development of healthy and effective coping strategies 04/13 - Titrating sertraline to 175mg daily - Continue remainder of medication regimen as above - Pt has been more open about intrusive homicidal thoughts, distressing, with no intent to act. Pt is very disturbed by these thoughts - Patient unwilling for additional medication adjustments today; however, could consider titration of olanzapine. Patient did experience significant EPS when she received a 15 mg dose early in her admission. Consider split dosing - 5mg/10mg - Also consider retrial for risperidone (beneficial on last admission), possibly as prn and then scheduled in place of olanzapine if effective. Can also consider trial of another atypical antipsychotic which may better target concerns. 04/14 - Continue medication adjustments as above - olanzapine 5mg qAM and 10mg qHS 04/15 -The patient's anxiety symptoms seem to be a combination of anxious distress associated with ego-dystonic intrusive thoughts, as well as restlessness associated with extrapyramidal side effects from her medications. -She has tolerated an increase in her dose of diphenhydramine from 12.5 mg to 25 mg without excess sedation, and she tells us that she much prefers this because she did not like the taste of liquid diphenhydramine. -We are beginning clonazepam 0.5 mg up to 3 times a day as needed for anx iety. The patient has a past history of favorable response to this medication. Material risks, including, but not limited to excess sedation, increased risk of accident, increased risk for falls, physical habituation with complicated withdrawal that may may be fatal and can include seizures, and cognitive impairment. The patient indicates understanding and notes that she has had no problems taking the clonazepam in the past. 04/19 -Diphenhydramine discontinued over the weekend due to anticholinergic side effects. Continue olanzapine 10 mg daily. She has haloperidol 1 mg every 4 hours as needed which she has not yet received. -Continue sertraline 200 mg daily and mirtazapine 30 mg at bedtime. 04/20 -Patient is received several doses of haloperidol 1 mg which has been helpful, and that she is tolerating it well, will increase to 2 mg every 4 hours as needed. If this is effective, can cross taper from olanzapine to haloperidol. -Continue to encourage patient to be out of her room and active during the day, even if unable to tolerate full groups; continued assistance for ADLs. 04/21 -Discontinue olanzapine as has not been effective and due to concern for extrapyramidal symptoms. Continue haloperidol and schedule 2mg 3 times daily, with an as needed dose as well. 04/22 -The patient continues to report feeling depressed, within the context of a history of bipolar disorder. A concern today is that the patient has been receiving multiple serotonergic medications and at the same time, may be exhibiting symptoms of serotonin syndrome. Accordingly, we will be holding mirtazapine, sertraline, and zolpidem. I have disclosed this concern, explained the causes of serotonin syndrome to the patient and she indicated understanding. 04/23 holding psychiatric meds expect for clonazepam a for now given possible serotonin syndrome. investment underwriter considering retrial of Risperdal when appropriate given past tolerability (with possibility of titratuating dose past 1mg bid that took in past) if tolerated decently in last trial, recent trial of orthostatic concerns might be more about overall presentation then Risperdal given vitals as whole lately. also Lamictal a possible med option given aim to avoid worsening possible serotonin syndrome. pt not willing to take prior or new Meds currently and investment underwriter seeking to hold such trails for now as well. 04/25 -Risperidone 0.5 mg in the morning and 1 mg at bedtime has been restarted. 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 In the past, she reportedly has taken risperidone 1 mg twice a day, and we have started at slightly lower than thiswith the plan to titrate as indicated. -We are continuing clonazepam 0.5 mg twice a day (9 and 1600) as well as clonazepam 1 mg at bedtime. The patient appears to be responding favorably to this. 04/26 -patient appears slightly improved; continue medication adjustments as above. Encourage her to be out of her room and participating to the extent that she is able. 04/27 -encourage patient to be up during the day to consolidate and improve sleep at night. 04/28 - maintained risperidone at current dose with consideration of titrating dose up slightly if progress being obtaining appears to be plateauing. maintained Klonopin at current dosage. 04/29 -both staff and the patient, herself, believe that she is continuing to improve. At this point, we will not increase her dose of risperidone further but we will continue to observe. We will also maintain the current Klonopin dosage (2) Orthostatic dizziness: started 04/17, repeat labs and monitor sodium (133). 04/18 - BMP notable for hyponatremia with sodium of 132. 04/19 -dizziness resolved, normotensive. Sodium 133. Encourage fluid intake. 04/22 - The patient is on bedrest and is being helped to the bathroom by staff. 04/29 -resolved. Present on Admission?: No (3) Sweating abnormality: 04/21 -patient has had multiple episodes over the past few days of excessive sweating, found to be drenched in sweat and tremulous. She has been drinking excessively at times, but other times with poor oral intake. Her sodium has been slightly low. Today she is hypertensive and tachycardic. Will consult the hospitalist service for assistance and to rule out any medical contributors to her current state; reviewed with Dr. Nielsen, and appreciate any recommendat ions.. 04/22 -It is possible that the symptoms (diaphoresis and hypertension close disease may be secondary to serotonin syndrome. We have obtained a consult from a hospitalist, but the exact etiology has not been determined. 04/25 -This appears to have resolved. It may have been a function of serotonin syndrome, or it may have represented panic episodes. 04/29 -Resolved. Present on Admission?: Yes (4) Serotonin syndrome: 04/22/19 -Serotonin syndrome is suspected. The patient does present with a number of symptoms that are suggestive of this. These include worsening confusion, muscle stiffness, recent onset diarrhea, diaphoresis, and pupillary dilatation. -We will treat symptomatically with benzodiazepines (Klonopin). She is also been given an order for Periactin 12 mg and we will continue this medication as indicated and tolerated. The diarrhea may be secondary to Periactin. -Serotonergic agents are being held pending further evaluation. 04/23 holding meds that have serotonin impact for now and monitoring vitals and for s/s of serotonin syndrome. with potential for more periactin doses if seems needed. 04/24 improving will attempt retrial of one med - risperdal given past response to it, monitoring closely for s/s serotonin syndrome 04/25 -Muscle stiffness, diaphoresis, diarrhea, extreme anxiety/confusion, and pupillary dilatation all appear to have resolved. Inventory Assets Strengths: Supportive . Cooperative with treatment. Motivated to recovery. Insight into her need for treatment. Intelligent. Needs: [place] from anxiety, mood alterations, and intrusive alien thoughts. Risk Factors Assessment Male: No : Yes Do You Have Access To A Gun?: Yes ( has guns that are locked) Health Problems: Yes Mental Health Diagnoses: Yes Substance Use Disorders: No Previous Attempt: No Family History of Suicide: No Previous Psychiatric Hospitalization: Yes Hopelessness: Yes Smoker: No Protective Factors Assessment : Yes Responsible for Young Children: No Employed: No Supportive Family: Yes Good Rapport with Provider: Yes Interval History Identifying Information VALENTINA CLARK is a 73-year-old F who currently lives in [place] with her , has a history of bipolar disorder type I and generalized anxiety di sorder, and was admitted on 03/30/19 19:35 on a 201 voluntary commitment for severe anxiety and inability to function. Chief Complaint "I am better, but not 'go home' better." Review of Systems Sleep Information Total Hours of Sleep: 6.75 Sleep Comments: pt on q-15 minute checks Meal Information Percent Meal Consumed - Breakfast: 25 Percent Meal Consumed - Lunch: 100 Percent Meal Consumed - Dinner: 100 Nutrition Comment: Breakfast a few bites of eggs and 100% nutrition drink Subjective Subjective Patient was seen & assessed and interval progress reviewed with treatment team. I met individually with the patient in order to assess her current mental status, evaluate her response to treatment, coordinate any necessary changes in the patient's treatment plan with the patient, and address issues and concerns that may arise. The patient tells me that she is feeling better, less anxious, and more hopeful. However, she quickly adds, "I am better, but not going home better"and then smiles. We discussed the question of when she will know it is time to go home, and she says "when I work everything out." I commented that I go home every day and I have not worked everything out, and she smiled again and said well, I am still worried about some things that I would like to stop worrying about." The patient also mentions that she has some back pain that is responding favorably to Tylenol. She has, "I think I moved kind of funny and pulled something." She describes the pain as "3 out of 10." Patient also reports that her appetite is improved and she thinks that she is sleeping better. Physical Exam Psychiatric Orientation: alert and oriented x 3 Apperance: appropriately groomed Eye Contact: + fair eye contact Motor Behavior: steady gait and station The patient's speech is more spontaneous and somewhat louder and more rapid than previously. Affect: + anxious affect The patient's affect remains anxious, but she appears to be in significantly less distress and is able to engage spontaneously in conversations. She also asked how others are doing. Mood: + anxious mood "But better." Thought Process: linear/logical thought process Thought Content: + obsessions and reality based without delusions Suicidal Thoughts: denies suicidal thoughts Homicidal Thoughts: denies homicidal thoughts Hallucinations: no auditory hallucinations Cognition: recent memory grossly intact, remote memory grossly intact, attention grossly intact and language grossly intact Estimated Intelligence: + above average estimated intelligence Insight: + fair insight Judgement: + fair judgement Vital Signs (Past 24 Hours) Last Vital Signs Temp 36.6 C 04/29/19 14:09 Pulse 102 H 04/29/19 06:50 Resp 16 04/29/19 06:49 BP 106/72 04/29/19 06:50 Pulse Ox 93 04/25/19 07:48 Results & Data Current Inpatient Medications Current Inpatient Medications: Current Inpatient Medications Acetaminophen (Tylenol) 650 mg PO Q4H PRN PRN Reason: Mild Pain Stop: 05/29/19 17:45 Al Hydrox/Mg Hydrox/Simethicone (Maalox) 30 ml PO Q6H PRN PRN Reason: Indigestion Stop: 05/29/19 17:47 Bismuth Subsalicylate (Pepto-Bismol) 15 ml PO PRN PRN PRN Reason: Diarrhea Stop: 05/29/19 17:49 Clonazepam (Klonopin) 0.5 mg PO TID PRN PRN Reason: Anxiety Stop: 05/15/19 15:26 Last Admin: 04/25/19 02:46 Dose: 0.5 mg Documented by: Clonazepam (Klonopin) 1 mg PO HS PILI Stop: 05/25/19 21:59 Last Admin: 04/28/19 21:04 Dose: 1 mg Documented by: Clonazepam (Klonopin) 0.5 mg PO BID@0900,1600 PILI Stop: 05/25/19 15:59 Last Admin: 04/29/19 15:46 Dose: 0.5 mg Documented by: Clonidine HCl (Catapres) 0.1 mg PO Q4H PRN PRN Reason: Hypertension Stop: 05/11/19 09:16 Last Admin: 04/15/19 06:56 Dose: 0.1 mg Documented by: Haloperidol (Haldol) 2 mg PO Q4 PRN PRN Reason: Anxiety/Agitation Stop: 05/17/19 14:16 Last Admin: 04/21/19 07:32 Dose: 2 mg Documented by: Lisinopril (Zestril) 15 mg PO BID PILI Stop: 05/11/19 08:59 Last Admin: 04/29/19 07:51 Dose: 15 mg Documented by: Magnesium Hydroxide (Milk Of Magnesia) 30 ml PO DAILY PRN PRN Reason: Constipation Stop: 05/29/19 17:56 Risperidone (Risperdal) 1 mg PO HS PILI Stop: 05/24/19 21:59 Last Admin: 04/28/19 21:04 Dose: 1 mg Documented by: Risperidone (Risperdal) 0.5 mg PO QAM PILI Stop: 05/25/19 08:59 Last Admin: 04/29/19 07:51 Dose: 0.5 mg Documented by: Sodium Chloride (Penermon Nasal) 2 sprays NA PRN PRN PRN Reason: Nasal Congestion Stop: 05/29/19 17:53 Mental Health & Subst Abuse Tx Psychiatrist Name of Psychiatrist: DEYSI Astudillo Psychiatrist's Date of Appointment with Psychiatrist: 05/09/19 Time of Appointment with Psychiatrist: 2:00 p.m. Psychiatric Appointment Comment[facility] [address] [facility] [place] [address] Therapist Name of Therapist: DEYSI Petersen Therapist's Date of Therapist Appointment: 05/03/19 Time of Therapist Appointment: 1:30 p.m. Therapy Appointment Comment: [address] [facility] [place] [address] Post Discharge Appointments Primary Care Physician Name Of Family Doctor: [facility] - Dr. Ay[facility] Date of Appointment with PCP: 05/10/19 Time of Appointment with PCP: 10:30 a.m. Provider Appointment Comment: [address], [address], [place] [address] Contact Information Discharge Discharge Address: [address] [place] [address] [place] [address] CPT Code CPT Code 00741
[2019-04-29] MEDS: clonazePAM 1 MG TAB PO SCH (20:35)
[2019-04-29] MEDS: risperiDONE 1 MG TABLET PO SCH (20:35)
[2019-04-30] MEDS: risperiDONE 0.5 MG TABLET PO SCH (07:22)
[2019-04-30] MEDS: clonazePAM 0.5 MG TAB PO SCH ×2 (07:23→16:04)
[2019-04-30] MEDS: LISINOPRIL 10 MG TAB PO SCH ×2 (07:23→20:58)
--- NOTE | 2019-04-30 08:30 | Psychiatric Progress Note ---
Date of Service April 30, 2019 Impression / Recommendations Impression Severe bipolar depression and anxiety are slowly improving, but continues to have intrusive, disturbing thoughts of harming others that she is struggling to deal with, and does not feel safe going home. (1) Bipolar 1 disorder: (1) Bipolar 1 disorder: 03/31 -current episode depressed with severe anxiety. -Clarify home med list, as there are some discrepancies (external medication history shows that she filled #30 olanzapine 10 mg tablets and hydroxyzine 25 mg tablets on 03/18/2019, but admission medication reconciliation indicates olanzapine 15 mg every afternoon and hydralazine 25 mg every afternoon). Nursing staff to call her and clarify this: Patient is not prescribed hydralazine, will remove medication. She did receive a dose last night, and blood pressure this morning was elevated 163/89, but on repeat 124/71. -Increase sertraline to 100 mg daily to target mood and anxiety, and watch for activation/mood stabilization. -It is unclear if her home dose of olanzapine is 10 or 15 mg; she received 15 mg last night, and I am concerned for EPS given her cogwheeling on exam and severe restlessness. Order benztropine 0.5 mg as needed, and reduce olanzapine to 10 milligrams at bedtime. Per she was only on 10mg olanzapine at home. May need to reduce dose further or switch to another antipsychotic if EPS does not improve. -Fasting lipid profile and glucose performed on 09/30/2018 for monitoring on an atypical antipsychotic, and were within normal limits. 04/01 -Contributing to the patient's severe anxiety may be akathisia associated with olanzapine and, possibly, sertraline. I have advised the patient accordingly, and she accepts my recommendation for a standing dose of Artane (trihexyphenidyl) -Patient otherwise indicates that she feels that she has been tolerating olanzapine well, and reports that she feels this medication has been helpful to her. -The patient's dose of sertraline has been increased to 100 mg daily 04/02 -Patient more unsteady today. Will hold any further doses of diphenhydramine for now. She does not have any cogwheeling; once she is able to relax the paratonia disappears -Patient now on moderate dose of SSRI. Reviewed she had been manic at last presentation. Considering Remeron trial which may help with restlessness and anxiety and allow for reduction of some of the anticholinergic medication she has been started on however patient appeared overwhelmed when attempting to discuss today and will defer for reconsideration tomorrow -patient refused physical therapy referral for imbalance today 04/04 - Continue current medication regimen, consider titration of mirtazapine with observation for activation 04/05 - Titrating mirtazapine to 30mg this evening - continue to monitor for possible activation and triggering of manic symptoms - Once efficacy is apparent, consider tapering sertraline to achieve antidepressant monotherapy - Continue remainder of medication regimen unchanged 04/06 - Patient reports mood and restlessness are slightly improved. - Worsening tachycardia with heart rate as high as 130, with worsening after Artane was started. As this medication can cause tachycardia, will decrease it to 1 mg twice daily. 04/07 -Tachycardia has resolved with lowered Artane dose. Restlessness is improved. 04/08 -While the patient's restlessness has improved, today, she continues to complain of restlessness and, on testing, demonstrates persistent cogwheeling. Currently, we will offer the patient a trial of diphenhydramine 12.5 mg twice a day. The target of diphenhydramine in this case is the patient's EPS, but we are also hopeful that it will aid in managing the patient's anxiety. -The patient is complaining of persistent anxiety and intrusive, ego dystonic thoughts that she tells me she is embarrassed to discuss. I offered the patient reassurances in this regard. -The patient reports that she is not having suicidal thoughts. 04/09 - 04/10 - Continue current medication regimen, reportedly demonstrating improvement 04/11 - Titrating sertraline to 150mg daily, continue remainder of current medication regimen 04/12 - Continue plan as above 04/13 - Titrating sertraline to 175mg daily, continue remainder of medication regimen for now - Pt reporting significant distress from intrusive thoughts - consider alternative options to reduce distress. Did not tolerate 15 mg dose of olanzapine due to EPS, but could consider split dosing 5 mg / 10 mg. Could also consider retrial of risperidone, or alternative agents. 04/14 - Reviewed medication options above with the patient, who does not desire to change atypical antipsychotic medications at this time. She was agreeable to titrating the dose to 5mg qAM and 10mg qHS. - Continue to monitor for EPS as dose is titrated 04/15 -I again spoke with the patient about possibly changing her antipsychotic, mood stabilizing medication from olanzapine to risperidone. The patient says that she feels fairly strongly that she would prefer to remain on olanzapine because she feels that it does help stabilize her mood. -While the patient does endorse feelings of depression, she tells us that the depression seems to be following her anxiety and distress regarding a series of alien, intrusive ego dystonic thoughts that she has great difficulty dismissing. 04/16--now willing to start Risperdal so d/c hs dose of Zyprexa and replace with Risperdal 1 mg. Reassess in am for cross taper. 04/17--not tolerating Risperdal 1 mg due to orthostasis. Reassess for restart of Zyprexa this hs vs prn Haldol. 04/19 -Diphenhydramine discontinued over the weekend due to anticholinergic side effects. Continue olanzapine 10 mg daily. She has haloperidol 1 mg every 4 hours as needed which she has not yet received. -Continue sertraline 200 mg daily and mirtazapine 30 mg at bedtime. 04/20 -Patient is received several doses of haloperidol 1 mg which has been helpful, and that she is tolerating it well, will increase to 2 mg every 4 hours as needed. If this is effective, can cross taper from olanzapine to haloperidol. -Continue to encourage patient to be out of her room and active during the day, even if unable to tolerate full groups; continued assistance for ADLs. 04/21 -Discontinue olanzapine as has not been effective and due to concern for extrapyramidal symptoms. Continue haloperidol and schedule 2mg 3 times daily, with an as needed dose as well. 04/22 -The patient continues to report feeling depressed, within the context of a history of bipolar disorder. A concern today is that the patient has been receiving multiple serotonergic medications and at the same time, may be exhibiting symptoms of serotonin syndrome. Accordingly, we will be holding mirtazapine, sertraline, and zolpidem. I have disclosed this concern, explained the causes of serotonin syndrome to the patient and she indicated understanding. 04/23 holding psychiatric meds expect for clonazepam a for now given possible serotonin syndrome. medical technical writer considering retrial of Risperdal when appropriate given past tolerability (with possibility of titratuating dose past 1mg bid that took in past) if tolerated decently in last trial, recent trial of orthostatic concerns might be more about overall presentation then Risperdal given vitals as whole lately. also Lamictal a possible med option given aim to avoid worsening possible serotonin syndrome. pt not willing to take prior or new Meds currently and medical technical writer seeking to hold such trails for now as well. 04/25 -Risperidone 0.5 mg in the morning and 1 mg at bedtime has been restarted. The patient previously said that she would refused to take risperidone because it "does not help." However, clinical data indicates that the patient has in the past responded quite well to risperidone and although she may have experienced an exacerbation of her [id number] while taking risperidone, we have been able to convince her to resume risperidone at this point. In the past, she reportedly has taken risperidone 1 mg twice a day, and we have started at slightly lower than thiswith the plan to titrate as indicated. -We are continuing clonazepam 0.5 mg twice a day (9 and 1600) as well as clonazepam 1 mg at bedtime. The patient appears to be responding favorably to this. 04/26 -patient appears slightly improved; continue medication adjustments as above. Encourage her to be out of her room and participating to the extent that she is able. 04/27 -encourage patient to be up during the day to consolidate and improve sleep at night. 04/28 - maintained risperidone at current dose with consideration of titrating dose up slightly if progress being obtaining appears to be plateauing. maintained Klonopin at current dosage. 04/29 -both staff and the patient, herself, believe that she is continuing to improve. At this point, we will not increase her dose of risperidone further but we will continue to observe. We will also maintain the current Klonopin dosage 04/30 -slow improvement continues. Still unwilling to discuss intrusive thoughts of hurting others and does not feel safe leaving the hospital. (2) Generalized anxiety disorder: 03/31 -patient extremely anxious, with negative, ruminative thoughts, and severe restlessness. -Increase sertraline as above. -At home dose of hydroxyzine 25 mg at bedtime, and offer 25 mg every 4 hours as needed anxiety. -Continue clonazepam 0.5 mg every morning, and add 0.5 mg dose twice daily as needed if hydroxyzine an effective, but monitor for unsteadiness and oversedation. 04/01/19 -As noted above, some of the patient's anxious distress may be secondary to eps side effects (akathisia). -On examination, the patient does have cogwheel rigidity. However, she tells me that she feels that she is somewhat less anxious and notes that the medications for her anxiety "may be helping." 04/02 -Patient remains highly anxious. Considered alternative options for bedtime hydroxyzine to reduce anticholinergic burden. Elected to trial the Remeron at 15 mg p.o. nightly which may help off label for feelings of restlessness. Hopefully this will also help to reduce her anxiety and provide some appetite stimulation but will need to watch for mood cycling in combination with the sertraline. If she does well with this agent, could consider using it as antidepressant monotherapy (tapering her off the Zoloft) 04/04 - Continue current medication regimen - consider increase or mirtazapine and possible taper of sertraline as outlined above; wanting to ensure tolerance prior to switching to mirtazapine as monotherapy 04/05 - Titrating mirtazapine to 30mg this evening; will continue sertraline at 100mg until efficacy of mirtazapine can be determined - Continue remainder of medication regimen unchanged 04/08 -As above, we are increasing her dose of sertraline to a dose of 125 mg daily to treat anxiety and depression. We will continue olanzapine to serve as a mood stabilizer given the patient's diagnosis of bipolar disorder. -Also as noted above, we have added diphenhydramine 12.5 mg twice a day for extraparametal side effects, persistent) EPS, and we will discontinue Artane. Hopefully, diphenhydramine will help not only with extraparametal side effects but, also, with the patient's generalized anxiety. -The patient's standing dose of clonazepam has been increased from 0.5 mg in the morning to 0.5 mg 3 times a day. She will also have available to her as needed clonazepam. Material risks and anticipated benefits of clonazepam have been reviewed with the patient, and it has been explained that this is not expected to be a long-term intervention but, instead, is being used to help bring the patient's anxiety under better control so that she can more fruitful he participate in the treatment on the. 04/09 - Continue current medication regimen; consider need for further titration of sertraline to 150mg daily - Patient appearing less restless/anxious, though she describes her symptoms to be unchanged 04/10 - Continue current medication regimen; consider titration of sertraline as above - pt limited in willingness to discuss multiple changes today - Patient's appearance is improving, though she reports limited changes in her condition 04/11 - Titrate sertraline to 150mg daily. Pt reporting daytime sedation, can consider possible reduction of prns at some point, when she begins to be more effective - Pt reporting mild improvements in anxiety 04/12 - Continue sertraline 150mg daily - In attempt to reduce sedation, but maintain progress with reducing anxiety/restlessness - will titrate diphenhydramine to 25mg daily (this will also allow for medication in capsule form, which patient prefers). Will discontinue scheduled TID clonazepam, but leave available prn dosing should patient require it during the day for anxiety or other concerns. - Staff also reporting apneic episodes observed at night; reducing reliance on benzodiazepines will be ideal as will reduce additional risk for respiratory concerns - Continue to encourage development of healthy and effective coping strategies 04/13 - Titrating sertraline to 175mg daily - Continue remainder of medication regimen as above - Pt has been more open about intrusive homicidal thoughts, distressing, with no intent to act. Pt is very disturbed by these thoughts - Patient unwilling for additional medication adjustments today; however, could consider titration of olanzapine. Patient did experience significant EPS when she received a 15 mg dose early in her admission. Consider split dosing - 5mg/10mg - Also consider retrial for risperidone (beneficial on last admission), possibly as prn and then scheduled in place of olanzapine if effective. Can also consider trial of another atypical antipsychotic which may better target concerns. 04/14 - Continue medication adjustments as above - olanzapine 5mg qAM and 10mg qHS 04/15 -The patient's anxiety symptoms seem to be a combination of anxious distress associated with ego-dystonic intrusive thoughts, as well as restlessness associated with extrapyramidal side effects from her medications. -She has tolerated an increase in her dose of diphenhydramine from 12.5 mg to 25 mg without excess sedation, and she tells us that she much prefers this because she did not like the taste of liquid diphenhydramine. -We are beginning clonazepam 0.5 mg up to 3 times a day as needed for anxiety. The patient has a past history of favorable response to this medication. Material risks, including, but not limited to excess sedation, increased risk of accident, increased risk for falls, physical habituation with complicated withdrawal that may may be fatal and can include seizures, and cognitive impairment. The patient indicates understanding and notes that she has had no problems taking the clonazepam in the past. Present on Admission?: Yes (3) Orthostatic dizziness: started 04/17, repeat labs and monitor sodium (133). 04/18 - BMP notable for hyponatremia with sodium of 132. 04/19 -dizziness resolved, normotensive. Sodium 133. Encourage fluid intake. 04/22 - The patient is on bedrest and is being helped to the bathroom by staff. 04/29 -resolved. (4) Sweating abnormality: 04/21 -patient has had multiple episodes over the past few days of excessive sweating, found to be drenched in sweat and tremulous. She has been drinking excessively at times, but other times with poor oral intake. Her sodium has been slightly low. Today she is hypertensive and tachycardic. Will consult the hospitalist service for assistance and to rule out any medical contributors to her current state; reviewed with Dr. Nielsen, and appreciate any recommendations.. 04/22 -It is possible that the symptoms (diaphoresis and hypertension close disease may be secondary to serotonin syndrome. We have obtained a consult from a hospitalist, but the exact etiology has not been determined. 04/25 -This appears to have resolved. It may have been a function of serotonin syndrome, or it may have represented panic episodes. 04/29 -Resolved. (5) Serotonin syndrome: 04/22/19 -Serotonin syndrome is suspected. The patient does present with a number of symptoms that are suggestive of this. These include worsening confusion, muscle stiffness, recent onset diarrhea, diaphoresis, and pupillary dilatation. -We will treat symptomatically with benzodiazepines (Klonopin). She is also been given an order for Periactin 12 mg and we will continue this medication as indicated and tolerated. The diarrhea may be secondary to Periactin. -Serotonergic agents are being held pending further evaluation. 04/23 holding meds that have serotonin impact for now and monitoring vitals and for s/s of serotonin syndrome. with potential for more periactin doses if seems needed. 04/24 improving will attempt retrial of one med - risperdal given past response to it, monitoring closely for s/s serotonin syndrome 04/25 -Muscle stiffness, diaphoresis, diarrhea, extreme anxiety/confusion, and pupillary dilatation all appear to have resolved. Inventory Assets Strengths: Supportive . Cooperative with treatment. Motivated to recovery. Insight into her need for treatment. Intelligent. Needs: [place] from anxiety, mood alterations, and intrusive alien thoughts. Risk Factors Assessment Male: No : Yes Do You Have Access To A Gun?: Yes ( has guns that are locked) Health Problems: Yes Mental Health Diagnoses: Yes Substance Use Disorders: No Previous Attempt: No Family History of Suicide: No Previous Psychiatric Hospitalization: Yes Hopelessness: Yes Smoker: No Protective Factors Assessment : Yes Responsible for Young Children: No Employed: No Supportive Family: Yes Good Rapport with Provider: Yes Interval History Identifying Information VALENTINA CLARK is a 73-year-old F who currently lives in [place] with her , has a history of bipolar disorder type I and generalized anxiety disorder, and was admitted on 03/30/19 19:35 on a 201 voluntary commitment for severe anxiety and inability to function. Chief Complaint "A little bit better, just a little bit". Review of Systems Sleep Information Total Hours of Sleep: 8.25 Sleep Comments: pt on q-15 minute checks Meal Information Percent Meal Consumed - Breakfast: 25 Percent Meal Consumed - Lunch: 100 Percent Meal Consumed - Dinner: 100 Nutrition Comment: Breakfast a few bites of eggs and 100% nutrition drink Subjective Subjective Patient was seen & assessed and interval progress reviewed with nursing and social work. Staff report she has not had orthostatic hypotension or c/o lightheadedness. Her visited and told staff she is improved but not ready to come home. On my assessment, she reports that mood continues to slowly improve, but she is distraught that she is still having "bad thoughts." she reports worrying a lot, and does not know how to manage it. Going to groups helps to distract her, but not want to talk about her thoughts, or even write them down. She denies suicidal thoughts, but admits she is still having thoughts about harming others, and refuses to talk about these further. Sleep is little bit better, but appetite remains poor, and she feels staff are trying to "force feed" her. She endorses constipation with no bowel movement in 2 days. Physical Exam Psychiatric Orientation: alert and cooperative Apperance: appropriately dressed, appropriately groomed and appeared stated age Hair in gera Eye Contact: good eye contact Motor Behavior: no abnormal motor movements Speech is spontaneous, slightly slowed/delayed Anxious at times especially when discussing disturbed thoughts, but slightly brighter and smiles appropriately at other times "A little better" Thought Process: goal directed thought process Thought Content: + guilt Suicidal Thoughts: denies suicidal thoughts Homicidal Thoughts: + reports homicidal thoughts Ego dystonic intrusive thoughts of harming others Hallucinations: no auditory hallucinations and no visual hallucinations Cognition: recent memory grossly intact, attention grossly intact and language grossly intact Insight: + impaired insight Judgement: + impaired judgement Vital Signs (Past 24 Hours) Last Vital Signs Temp 36.5 C 04/30/19 06:41 Pulse 105 H 04/30/19 06:43 Resp 18 04/30/19 06:41 BP 112/72 04/30/19 06:43 Pulse Ox 93 04/25/19 07:48 Results & Data Current Inpatient Medications Current Inpatient Medications: Current Inpatient Medications Acetaminophen (Tylenol) 650 mg PO Q4H PRN PRN Reason: Mild Pain Stop: 05/29/19 17:45 Last Admin: 04/29/19 20:34 Dose: 650 mg Documented by: Al Hydrox/Mg Hydrox/Simethicone (Maalox) 30 ml PO Q6H PRN PRN Reason: Indigestion Stop: 05/29/19 17:47 Bismuth Subsalicylate (Pepto-Bismol) 15 ml PO PRN PRN PRN Reason: Diarrhea Stop: 05/29/19 17:49 Clonazepam (Klonopin) 0.5 mg PO TID PRN PRN Reason: Anxiety Stop: 05/15/19 15:26 Last Admin: 04/25/19 02:46 Dose: 0.5 mg Documented by: Clonazepam (Klonopin) 1 mg PO HS PILI Stop: 05/25/19 21:59 Last Admin: 04/29/19 20:35 Dose: 1 mg Documented by: Clonazepam (Klonopin) 0.5 mg PO BID@0900,1600 PILI Stop: 05/25/19 15:59 Last Admin: 04/30/19 07:23 Dose: 0.5 mg Documented by: Clonidine HCl (Catapres) 0.1 mg PO Q4H PRN PRN Reason: Hypertension Stop: 05/11/19 09:16 Last Admin: 04/15/19 06:56 Dose: 0.1 mg Documented by: Haloperidol (Haldol) 2 mg PO Q4 PRN PRN Reason: Anxiety/Agitation Stop: 05/17/19 14:16 Last Admin: 04/21/19 07:32 Dose: 2 mg Documented by: Lisinopril (Zestril) 15 mg PO BID PILI Stop: 05/11/19 08:59 Last Admin: 04/30/19 07:23 Dose: 15 mg Documented by: Magnesium Hydroxide (Milk Of Magnesia) 30 ml PO DAILY PRN PRN Reason: Constipation Stop: 05/29/19 17:56 Risperidone (Risperdal) 1 mg PO HS [facility] Stop: 05/24/19 21:59 Last Admin: 04/29/19 20:35 Dose: 1 mg Documented by: Risperidone (Risperdal) 0.5 mg PO QAM [facility] Stop: 05/25/19 08:59 Last Admin: 04/30/19 07:22 Dose: 0.5 mg Documented by: Sodium Chloride (Tate Nasal) 2 sprays NA PRN PRN PRN Reason: Nasal Congestion Stop: 05/29/19 17:53 Mental Health & Subst Abuse Tx Psychiatrist Name of Psychiatrist: DEYSI Astudillo Psychiatrist's Date of Appointment with Psychiatrist: 05/09/19 Time of Appointment with Psychiatrist: 2:00 p.m. Psychiatric Appointment Comment: [address] [facility] [place] [address] Therapist Name of Therapist: DEYSI Petersen Therapist's Date of Therapist Appointment: 05/03/19 Time of Therapist Appointment: 1:30 p.m. Therapy Appointment Comment: [address] [facility] [place] [address] Post Discharge Appointments Primary Care Physician Name Of Family Doctor: [facility] - Dr. Ayala [facility] Date of Appointment with PCP: 05/10/19 Time of Appointment with PCP: 10:30 a.m. Provider Appointment Comment: [address], [address], [place] [address] Contact Information Discharge Discharge Address: [address] [place] [address] CPT Code CPT Code 27225
[2019-04-30] MEDS: risperiDONE 1 MG TABLET PO SCH (20:59)
[2019-04-30] MEDS: clonazePAM 1 MG TAB PO SCH (20:59)
--- NOTE | 2019-05-01 07:06 | Psychiatric Progress Note ---
Date of Service May 01, 2019 Impression / Recommendations Impression Severe bipolar depression and anxiety are slowly improving, but continues to have intrusive, disturbing thoughts of harming others that she is struggling to deal with, and does not feel safe going home. (1) Bipolar 1 disorder: (1) Bipolar 1 disorder: 03/31 -current episode depressed with severe anxiety. -Clarify home med list, as there are some discrepancies (external medication history shows that she filled #30 olanzapine 10 mg tablets and hydroxyzine 25 mg tablets on 03/18/2019, but admission medication reconciliation indicates olanzapine 15 mg every afternoon and hydralazine 25 mg every afternoon). Nursing staff to call her and clarify this: Patient is not prescribed hydralazine, will remove medication. She did receive a dose last night, and blood pressure this morning was elevated 163/89, but on repeat 124/71. -Increase sertraline to 100 mg daily to target mood and anxiety, and watch for activation/mood stabilization. -It is unclear if her home dose of olanzapine is 10 or 15 mg; she received 15 mg last night, and I am concerned for EPS given her cogwheeling on exam and severe restlessness. Order benztropine 0.5 mg as needed, and reduce olanzapine to 10 milligrams at bedtime. Per she was only on 10mg olanzapine at home. May need to reduce dose further or switch to another antipsychotic if EPS does not improve. -Fasting lipid profile and glucose performed on 09/30/2018 for monitoring on an atypical antipsychotic, and were within normal limits. 04/01 -Contributing to the patient's severe anxiety may be akathisia associated with olanzapine and, possibly, sertraline. I have advised the patient accordingly, and she accepts my recommendation for a standing dose of Artane (trihexyphenidyl) -Patient otherwise indicates that she feels that she has been tolerating olanzapine well, and reports that she feels this medication has been helpful to her. -The patient's dose of sertraline has been increased to 100 mg daily 04/02 -Patient more unsteady today. Will hold any further doses of diphenhydramine for now. She does not have any cogwheeling; once she is able to relax the paratonia disappears -Patient now on moderate dose of SSRI. Reviewed she had been manic at last presentation. Considering Remeron trial which may help with restlessness and anxiety and allow for reduction of some of the anticholinergic medication she has been started on however patient appeared overwhelmed when attempting to discuss today and will defer for reconsideration tomorrow -patient refused physical therapy referral for imbalance today 04/04 - Continue current medication regimen, consider titration of mirtazapine with observation for activation 04/05 - Titrating mirtazapine to 30mg this evening - continue to monitor for possible activation and triggering of manic symptoms - Once efficacy is apparent, consider tapering sertraline to achieve antidepressant monotherapy - Continue remainder of medication regimen unchanged 04/06 - Patient reports mood and restlessness are slightly improved. - Worsening tachycardia with heart rate as high as 130, with worsening after Artane was started. As this medication can cause tachycardia, will decrease it to 1 mg twice daily. 04/07 -Tachycardia has resolved with lowered Artane dose. Restlessness is improved. 04/08 -While the patient's restlessness has improved, today, she continues to complain of restlessness and, on testing, demonstrates persistent cogwheeling. Currently, we will offer the patient a trial of diphenhydramine 12.5 mg twice a day. The target of diphenhydramine in this case is the patient's EPS, but we are also hopeful that it will aid in managing the patient's anxiety. -The patient is complaining of persistent anxiety and intrusive, ego dystonic thoughts that she tells me she is embarrassed to discuss. I offered the patient reassurances in this regard. -The patient reports that she is not having suicidal thoughts. 04/09 - 04/10 - Continue current medication regimen, reportedly demonstrating improvement 04/11 - Titrating sertraline to 150mg daily, continue remainder of current medication regimen 04/12 - Continue plan as above 04/13 - Titrating sertraline to 175mg daily, continue remainder of medication regimen for now - Pt reporting significant distress from intrusive thoughts - consider alternative options to reduce distress. Did not tolerate 15 mg dose of olanzapine due to EPS, but could consider split dosing 5 mg / 10 mg. Could also consider retrial of risperidone, or alternative agents. 04/14 - Reviewed medication options above with the patient, who does not desire to change atypical antipsychotic medications at this time. She was agreeable to titrating the dose to 5mg qAM and 10mg qHS. - Continue to monitor for EPS as dose is titrated 04/15 -I again spoke with the patient about possibly changing her antipsychotic, mood stabilizing medication from olanzapine to risperidone. The patient says that she feels fairly strongly that she would prefer to remain on olanzapine because she feels that it does help stabilize her mood. -While the patient does endorse feelings of depression, she tells us that the depression seems to be following her anxiety and distress regarding a series of alien, intrusive ego dystonic thoughts that she has great difficulty dismissing. 04/16--now willing to start Risperdal so d/c hs dose of Zyprexa and replace with Risperdal 1 mg. Reassess in am for cross taper. 04/17--not tolerating Risperdal 1 mg due to orthostasis. Reassess for restart of Zyprexa this hs vs prn Haldol. 04/19 -Diphenhydramine discontinued over the weekend due to anticholinergic side effects. Continue olanzapine 10 mg daily. She has haloperidol 1 mg every 4 hours as needed which she has not yet received. -Continue sertraline 200 mg daily and mirtazapine 30 mg at bedtime. 04/20 -Patient is received several doses of haloperidol 1 mg which has been helpful, and that she is tolerating it well, will increase to 2 mg every 4 hours as needed. If this is effective, can cross taper from olanzapine to haloperidol. -Continue to encourage patient to be out of her room and active during the day, even if unable to tolerate full groups; continued assistance for ADLs. 04/21 -Discontinue olanzapine as has not been effective and due to concern for extrapyramidal symptoms. Continue haloperidol and schedule 2mg 3 times daily, with an as needed dose as well. 04/22 -The patient continues to report feeling depressed, within the context of a history of bipolar disorder. A concern today is that the patient has been receiving multiple serotonergic medications and at the same time, may be exhibiting symptoms of serotonin syndrome. Accordingly, we will be holding mirtazapine, sertraline, and zolpidem. I have disclosed this concern, explained the causes of serotonin syndrome to the patient and she indicated understanding. 04/23 holding psychiatric meds expect for clonazepam a for now given possible serotonin syndrome. headline writer considering retrial of Risperdal when appropriate given past tolerability (with possibility of titratuating dose past 1mg bid that took in past) if tolerated decently in last trial, recent trial of orthostatic concerns might be more about overall presentation then Risperdal given vitals as whole lately. also Lamictal a possible med option given aim to avoid worsening possible serotonin syndrome. pt not willing to take prior or new Meds currently and headline writer seeking to hold such trails for now as well. 04/25 -Risperidone 0.5 mg in the morning and 1 mg at bedtime has been restarted. The patient previously said that she would refused to take risperidone because it "does not help." However, clinical data indicates that the patient has in the past responded quite well to risperidone and although she may have experienced an exacerbation of her [id number] while taking risperidone, we have been able to convince her to resume risperidone at this point. In the past, she reportedly has taken risperidone 1 mg twice a day, and we have started at slightly lower than thiswith the plan to titrate as indicated. -We are continuing clonazepam 0.5 mg twice a day (9 and 1600) as well as clonazepam 1 mg at bedtime. The patient appears to be responding favorably to this. 04/26 -patient appears slightly improved; continue medication adjustments as above. Encourage her to be out of her room and participating to the extent that she is able. 04/27 -encourage patient to be up during the day to consolidate and improve sleep at night. 04/28 - maintained risperidone at current dose with consideration of titrating dose up slightly if progress being obtaining appears to be plateauing. maintained Klonopin at current dosage. 04/29 -both staff and the patient, herself, believe that she is continuing to improve. At this point, we will not increase her dose of risperidone further but we will continue to observe. We will also maintain the current Klonopin dosage 04/30 -slow improvement continues. Still unwilling to discuss intrusive thoughts of hurting others and does not feel safe leaving the hospital. 05/01 -scheduled family meeting tomorrow for discharge planning. (2) Generalized anxiety disorder: 03/31 -patient extremely anxious, with negative, ruminative thoughts, and severe restlessness. -Increase sertraline as above. -At home dose of hydroxyzine 25 mg at bedtime, and offer 25 mg every 4 hours as needed anxiety. -Continue clonazepam 0.5 mg every morning, and add 0.5 mg dose twice daily as needed if hydroxyzine an effective, but monitor for unsteadiness and oversedation. 04/01/19 -As noted above, some of the patient's anxious distress may be secondary to eps side effects (akathisia). -On examination, the patient does have cogwheel rigidity. However, she tells me that she feels that she is somewhat less anxious and notes that the medications for her anxiety "may be helping." 04/02 -Patient remains highly anxious. Considered alternative options for bedtime hydroxyzine to reduce anticholinergic burden. Elected to trial the Remeron at 15 mg p.o. nightly which may help off label for feelings of restlessness. Hopefully this will also help to reduce her anxiety and provide some appetite stimulation but will need to watch for mood cycling in combination with the sertraline. If she does well with this agent, could consider using it as antidepressant monotherapy (tapering her off the Zoloft) 04/04 - Continue current medication regimen - consider increase or mirtazapine and possible taper of sertraline as outlined above; wanting to ensure tolerance prior to switching to mirtazapine as monotherapy 04/05 - Titrating mirtazapine to 30mg this evening; will continue sertraline at 100mg until efficacy of mirtazapine can be determined - Continue remainder of medication regimen unchanged 04/08 -As above, we are increasing her dose of sertraline to a dose of 125 mg daily to treat anxiety and depression. We will continue olanzapine to serve as a mood stabilizer given the patient's diagnosis of bipolar disorder. -Also as noted above, we have added diphenhydramine 12.5 mg twice a day for extraparametal side effects, persistent) EPS, and we will discontinue Artane. Hopefully, diphenhydramine will help not only with extraparametal side effects but, also, with the patient's generalized anxiety. -The patient's standing dose of clonazepam has been increased from 0.5 mg in the morning to 0.5 mg 3 times a day. She will also have available to her as needed clonazepam. Material risks and anticipated benefits of clonazepam have been reviewed with the patient, and it has been explained that this is not expected to be a long-term intervention but, instead, is being used to help bring the patient's anxiety under better control so that she can more fruitful he participate in the treatment on the. 04/09 - Continue current medication regimen; consider need for further titration of sertraline to 150mg daily - Patient appearing less restless/anxious, though she describes her symptoms to be unchanged 04/10 - Continue current medication regimen; consider titration of sertraline as above - pt limited in willingness to discuss multiple changes today - Patient's appearance is improving, though she reports limited changes in her condition 04/11 - Titrate sertraline to 150mg daily. Pt reporting daytime sedation, can consider possible reduction of prns at some point, when she begins to be more effective - Pt reporting mild improvements in anxiety 04/12 - Continue sertraline 150mg daily - In attempt to reduce sedation, but maintain progress with reducing anxiety/restlessness - will titrate diphenhydramine to 25mg daily (this will als o allow for medication in capsule form, which patient prefers). Will discontinue scheduled TID clonazepam, but leave available prn dosing should patient require it during the day for anxiety or other concerns. - Staff also reporting apneic episodes observed at night; reducing reliance on benzodiazepines will be ideal as will reduce additional risk for respiratory concerns - Continue to encourage development of healthy and effective coping strategies 04/13 - Titrating sertraline to 175mg daily - Continue remainder of medication regimen as above - Pt has been more open about intrusive homicidal thoughts, distressing, with no intent to act. Pt is very disturbed by these thoughts - Patient unwilling for additional medication adjustments today; however, could consider titration of olanzapine. Patient did experience significant EPS when she received a 15 mg dose early in her admission. Consider split dosing - 5mg/10mg - Also consider retrial for risperidone (beneficial on last admission), possibly as prn and then scheduled in place of olanzapine if effective. Can also consider trial of another atypical antipsychotic which may better target concerns. 04/14 - Continue medication adjustments as above - olanzapine 5mg qAM and 10mg qHS 04/15 -The patient's anxiety symptoms seem to be a combination of anxious distress associated with ego-dystonic intrusive thoughts, as well as restlessness associated with extrapyramidal side effects from her medications. -She has tolerated an increase in her dose of diphenhydramine from 12.5 mg to 25 mg without excess sedation, and she tells us that she much prefers this because she did not like the taste of liquid diphenhydramine. -We are beginning clonazepam 0.5 mg up to 3 times a day as needed for anxiety. The patient has a past history of favorable response to this medication. Material risks, including, but not limited to excess sedation, increased risk of accident, increased risk for falls, physical habituation with complicated withdrawal that may may be fatal and can include seizures, and cognitive impairment. The patient indicates understanding and notes that she has had no problems taking the clonazepam in the past. (3) Orthostatic dizziness: started 04/17, repeat labs and monitor sodium (133). 04/18 - BMP notable for hyponatremia with sodium of 132. 04/19 -dizziness resolved, normotensive. Sodium 133. Encourage fluid intake. 04/22 - The patient is on bedrest and is being helped to the bathroom by staff. 04/29 -resolved. (4) Sweating abnormality: 04/21 -patient has had multiple episodes over the past few days of excessive sweating, found to be drenched in sweat and tremulous. She has been drinking excessively at times, but other times with poor oral intake. Her sodium has been slightly low. Today she is hypertensive and tachycardic. Will consult the hospitalist service for assistance and to rule out any medical contributors to her current state; reviewed with Dr. Nielsen, and appreciate any recommendations.. 04/22 -It is possible that the symptoms (diaphoresis and hypertension close disease may be secondary to serotonin syndrome. We have obtained a consult from a hospitalist, but the exact etiology has not been determined. 04/25 -This appears to have resolved. It may have been a function of serotonin syn drome, or it may have represented panic episodes. 04/29 -Resolved. (5) Serotonin syndrome: 04/22/19 -Serotonin syndrome is suspected. The patient does present with a number of symptoms that are suggestive of this. These include worsening confusion, muscle stiffness, recent onset diarrhea, diaphoresis, and pupillary dilatation. -We will treat symptomatically with benzodiazepines (Klonopin). She is also been given an order for Periactin 12 mg and we will continue this medication as indicated and tolerated. The diarrhea may be secondary to Periactin. -Serotonergic agents are being held pending further evaluation. 04/23 holding meds that have serotonin impact for now and monitoring vitals and for s/s of serotonin syndrome. with potential for more periactin doses if seems needed. 04/24 improving will attempt retrial of one med - risperdal given past response to it, monitoring closely for s/s serotonin syndrome 04/25 -Muscle stiffness, diaphoresis, diarrhea, extreme anxiety/confusion, and pupillary dilatation all appear to have resolved. Inventory Assets Strengths: Supportive . Cooperative with treatment. Motivated to recovery. Insight into her need for treatment. Intelligent. Needs: [place] from anxiety, mood alterations, and intrusive alien thoughts. Risk Factors Assessment Male: No : Yes Do You Have Access To A Gun?: Yes ( has guns that are locked) Health Problems: Yes Mental Health Diagnoses: Yes Substance Use Disorders: No Previous Attempt: No Family History of Suicide: No Previous Psychiatric Hospitalization: Yes Hopelessness: Yes Smoker: No Protective Factors Assessment : Yes Responsible for Young Children: No Employed: No Supportive Family: Yes Good Rapport with Provider: Yes Interval History Identifying Information VALENTINA CLARK is a 73-year-old F who currently lives in [place] with her , has a history of bipolar disorder type I and generalized anxiety disorder, and was admitted on 03/30/19 19:35 on a 201 voluntary commitment for severe anxiety and inability to function. Chief Complaint "Not feeling too great right now". Review of Systems Sleep Information Total Hours of Sleep: 9.5 Sleep Comments: periods of breath cessation then louder inhalation with soft snoring resumed Meal Information Percent Meal Consumed - Breakfast: 100 Percent Meal Consumed - Lunch: 100 Percent Meal Consumed - Dinner: 50 Nutrition Comment: Breakfast a few bites of eggs and 100% nutrition drink Subjective Subjective Patient was seen & assessed and interval progress reviewed with nursing and social work. Staff report her and son from [place] visited last night. She has been out of her room more and going to groups. She continues to endorse intrusive, disturbing thoughts, and doesn't want to discuss them. Sleep appears better and more consolidated through the night. On my assessment, the patient has returned to bed, stating that she did not sleep well last night and feels worse today, tired and more anxious. She continues to refuse to talk about her distressing thoughts, "but they are there." She cannot give any suggestions for how we might assist her to deal with these thoughts given that she refuses to discuss them. She says she has not even thought about when she might feel ready to go home, and was informed of her family's concerns and request to have a meeting to talk about discharge planning. As she has been here for over 30 days, offered to have staff escort her outside, which she declined, stating she was too exhausted. Physical Exam Psychiatric Orientation: alert, cooperative and + guarded Apperance: appropriately dressed, appropriately groomed and appeared stated age Eye Contact: good eye contact Motor Behavior: steady gait and station and no abnormal motor movements Speech: normal rate/rhythm/volume of speech Affect: + depressed affect and + constricted affect tired "Not too good." Thought Process: goal directed thought process Thought Content: + guilt Suicidal Thoughts: denies suicidal thoughts Homicidal Thoughts: + reports homicidal thoughts Hallucinations: no auditory hallucinations and no visual hallucinations Cognition: recent memory grossly intact, attention grossly intact and language grossly intact Insight: + impaired insight Judgement: + impaired judgement Vital Signs (Past 24 Hours) Last Vital Signs Temp 36.3 C L 05/01/19 06:34 Pulse 105 H 05/01/19 06:35 Resp 18 05/01/19 06:34 BP 133/87 05/01/19 06:35 Pulse Ox 93 04/25/19 07:48 Results & Data Current Inpatient Medications Current Inpatient Medications: Current Inpatient Medications Acetaminophen (Tylenol) 650 mg PO Q4H PRN PRN Reason: Mild Pain Stop: 05/29/19 17:45 Last Admin: 04/29/19 20:34 Dose: 650 mg Documented by: Al Hydrox/Mg Hydrox/Simethicone (Maalox) 30 ml PO Q6H PRN PRN Reason: Indigestion Stop: 05/29/19 17:47 Bismuth Subsalicylate (Pepto-Bismol) 15 ml PO PRN PRN PRN Reason: Diarrhea Stop: 05/29/19 17:49 Clonazepam (Klonopin) 0.5 mg PO TID PRN PRN Reason: Anxiety Stop: 05/15/19 15:26 Last Admin: 04/25/19 02:46 Dose: 0.5 mg Documented by: Clonazepam (Klonopin) 1 mg PO HS PILI Stop: 05/25/19 21:59 Last Admin: 04/30/19 20:59 Dose: 1 mg Documented by: Clonazepam (Klonopin) 0.5 mg PO BID@0900,1600 PILI Stop: 05/25/19 15:59 Last Admin: 04/30/19 16:04 Dose: 0.5 mg Documented by: Clonidine HCl (Catapres) 0.1 mg PO Q4H PRN PRN Reason: Hypertension Stop: 05/11/19 09:16 Last Admin: 04/15/19 06:56 Dose: 0.1 mg Documented by: Haloperidol (Haldol) 2 mg PO Q4 PRN PRN Reason: Anxiety/Agitation Stop: 05/17/19 14:16 Last Admin: 04/21/19 07:32 Dose: 2 mg Documented by: Lisinopril (Zestril) 15 mg PO BID PILI Stop: 05/11/19 08:59 Last Admin: 04/30/19 20:58 Dose: 15 mg Documented by: Magnesium Hydroxide (Milk Of Magnesia) 30 ml PO DAILY PRN PRN Reason: Constipation Stop: 05/29/19 17:56 Risperidone (Risperdal) 1 mg PO HS [facility] Stop: 05/24/19 21:59 Last Admin: 04/30/19 20:59 Dose: 1 mg Documented by: Risperidone (Risperdal) 0.5 mg PO QAM PILI Stop: 05/25/19 08:59 Last Admin: 04/30/19 07:22 Dose: 0.5 mg Documented by: Sodium Chloride ([place] Nasal) 2 sprays NA PRN PRN PRN Reason: Nasal Congestion Stop: 05/29/19 17:53 Mental Health & Subst Abuse Tx Psychiatrist Name of Psychiatrist: [facility] Carey Astudillo Psychiatrist's Date of Appointment with Psychiatrist: 05/09/19 Time of Appointment with Psychiatrist: 2:00 p.m. Psychiatric Appointment Comment: [address] [facility], [place] [address] Therapist Name of Therapist: BENJAMIN Carey Petersen Therapist's Date of Therapist Appointment: 05/03/19 Time of Therapist Appointment: 1:30 p.m. Therapy Appointment Comment: [address] [facility], [place] [address] Post Discharge Appointments Primary Care Physician Name Of Family Doctor: [facility] - Dr. Ay[facility] Date of Appointment with PCP: 05/10/19 Time of Appointment with PCP: 10:30 a.m. Provider Appointment Comment: [address], [address], [place] [address] Contact Information Discharge Discharge Address: [address] [place] [id number] CPT Code CPT Code 53629
[2019-05-01] MEDS: risperiDONE 0.5 MG TABLET PO SCH (07:28)
[2019-05-01] MEDS: LISINOPRIL 10 MG TAB PO SCH ×2 (07:28→21:00)
[2019-05-01] MEDS: clonazePAM 0.5 MG TAB PO SCH ×2 (07:28→17:18)
[2019-05-01] MEDS: risperiDONE 1 MG TABLET PO SCH (20:59)
[2019-05-01] MEDS: clonazePAM 1 MG TAB PO SCH (21:03)
[2019-05-02] MEDS: clonazePAM 0.5 MG TAB PO SCH ×2 (07:28→16:05)
[2019-05-02] MEDS: risperiDONE 0.5 MG TABLET PO SCH (07:28)
[2019-05-02] MEDS: LISINOPRIL 10 MG TAB PO SCH ×2 (07:28→21:17)
--- NOTE | 2019-05-02 11:30 | Psychiatric Progress Note ---
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 PRN Reason: Anxiety/Agitation Stop: 05/17/19 14:16 Last Admin: 04/21/19 07:32 Dose: 2 mg Documented by: Lisinopril (Zestril) 15 mg PO BID [facility] Stop: 05/11/19 08:59 Last Admin: 05/02/19 07:28 Dose: 15 mg Documented by: Magnesium Hydroxide (Milk Of Magnesia) 30 ml PO DAILY PRN PRN Reason: Constipation Stop: 05/29/19 17:56 Risperidone (Risperdal) 1 mg PO HS [facility] Stop: 05/24/19 21:59 Last Admin: 05/01/19 20:59 Dose: 1 mg Documented by: Risperidone (Risperdal) 0.5 mg PO QAM [facility] Stop: 05/25/19 08:59 Last Admin: 05/02/19 07:28 Dose: 0.5 mg Documented by: Sodium Chloride ([place] Nasal) 2 sprays NA PRN PRN PRN Reason: Nasal Congestion Stop: 05/29/19 17:53 Mental Health & Subst Abuse Tx Psychiatrist Name of Psychiatrist: DEYSI Astudillo Psychiatrist's Date of Appointment with Psychiatrist: 05/09/19 Time of Appointment with Psychiatrist: 2:00 p.m. Psychiatric Appointment Comment: [address] [facility], [place] [address] Therapist Name of Therapist: DEYSI Petersen Therapist's Date of Therapist Appointment: 05/17/19 Time of Therapist Appointment: 1:30 p.m. Therapy Appointment Comment: [address] [place] [address], [place] Arias [id number] Post Discharge Appointments Primary Care Physician Name Of Family Doctor: [facility] - Dr. Ayaal [facility] Date of Appointment with PCP: 05/10/19 Time of Appointment with PCP: 10:30 a.m. Provider Appointment Comment: [address], [address], [place] [address] Contact Information Discharge Discharge Address: [address] [place] [id number] CPT Code CPT Code 48862
[2019-05-02] MEDS: ACETAMINOPHEN 325 MG TAB PO PRN (11:49)
[2019-05-02] MEDS: clonazePAM 1 MG TAB PO SCH (21:13)
[2019-05-02] MEDS: risperiDONE 1 MG TABLET PO SCH (21:14)
[2019-05-03] MEDS: LISINOPRIL 10 MG TAB PO SCH ×2 (07:15→20:28)
[2019-05-03] MEDS: risperiDONE 0.5 MG TABLET PO SCH (07:16)
[2019-05-03] MEDS: clonazePAM 0.5 MG TAB PO SCH ×2 (07:18→16:03)
--- NOTE | 2019-05-03 09:12 | Psychiatric Progress Note ---
Date of Service May 03, 2019 Impression / Recommendations Impression Severe bipolar depression and anxiety are slowly improving, but continues to have intrusive, disturbing thoughts of harming others that she is struggling to deal with, and does not feel safe going home. A discharge planning meeting was held with her and son who remain concerned about patient's ability to function at home in her current condition. Pt has been resistant to recommendations for PT evaluation or referral for case management assistant/mobile psych nursing to assist with discharge planning and transition home. Pt continues to be at high risk of decompensation if discharged home at this time; therefore, ongoing inpatient psychiatric treatment is medically necessary. (1) Bipolar 1 disorder: (1) Bipolar 1 disorder: 03/31 -current episode depressed with severe anxiety. -Clarify home med list, as there are some discrepancies (external medication history shows that she filled #30 olanzapine 10 mg tablets and hydroxyzine 25 mg tablets on 03/18/2019, but admission medication reconciliation indicates olanzapine 15 mg every afternoon and hydralazine 25 mg every afternoon). Nursing staff to call her and clarify this: Patient is not prescribed hydralazine, will remove medication. She did receive a dose last night, and blood pressure this morning was elevated 163/89, but on repeat 124/71. -Increase sertraline to 100 mg daily to target mood and anxiety, and watch for activation/mood stabilization. -It is unclear if her home dose of olanzapine is 10 or 15 mg; she received 15 mg last night, and I am concerned for EPS given her cogwheeling on exam and severe restlessness. Order benztropine 0.5 mg as needed, and reduce olanzapine to 10 milligrams at bedtime. Per she was only on 10mg olanzapine at home. May need to reduce dose further or switch to another antipsychotic if EPS does not improve. -Fasting lipid profile and glucose performed on 09/30/2018 for monitoring on an atypical antipsychotic, and were within normal limits. 04/01 -Contributing to the patient's severe anxiety may be akathisia associated with olanzapine and, possibly, sertraline. I have advised the patient accordingly, and she accepts my recommendation for a standing dose of Artane (trihexyphenidyl) -Patient otherwise indicates that she feels that she has been tolerating olanzapine well, and reports that she feels this medication has been helpful to her. -The patient's dose of sertraline has been increased to 100 mg daily 04/02 -Patient more unsteady today. Will hold any further doses of diphenhydramine for now. She does not have any cogwheeling; once she is able to relax the paratonia disappears -Patient now on moderate dose of SSRI. Reviewed she had been manic at last presentation. Considering Remeron trial which may help with restlessness and anxiety and allow for reduction of some of the anticholinergic medication she has been started on however patient appeared overwhelmed when attempting to discuss today and will defer for reconsideration tomorrow -patient refused physical therapy referral for imbalance today 04/04 - Continue current medication regimen, consider titration of mirtazapine with observation for activation 04/05 - Titrating mirtazapine to 30mg this evening - continue to monitor for possible activation and triggering of manic symptoms - Once efficacy is apparent, consider tapering sertraline to achieve antidepressant monotherapy - Continue remainder of medication regimen unchanged 04/06 - Patient reports mood and restlessness are slightly improved. - Worsening tachycardia with heart rate as high as 130, with worsening after Artane was started. As this medication can cause tachycardia, will decrease it to 1 mg twice daily. 04/07 -Tachycardia has resolved with lowered Artane dose. Restlessness is improved. 04/08 -While the patient's restlessness has improved, today, she continues to complain of restlessness and, on testing, demonstrates persistent cogwheeling. Currently, we will offer the patient a trial of diphenhydramine 12.5 mg twice a day. The target of diphenhydramine in this case is the patient's EPS, but we are also hopeful that it will aid in managing the patient's anxiety. -The patient is complaining of persistent anxiety and intrusive, ego dystonic thoughts that she tells me she is embarrassed to discuss. I offered the patient reassurances in this regard. -The patient reports that she is not having suicidal thoughts. 04/09 - 04/10 - Continue current medication regimen, reportedly demonstrating improvement 04/11 - Titrating sertraline to 150mg daily, continue remainder of current medication regimen 04/12 - Continue plan as above 04/13 - Titrating sertraline to 175mg daily, continue remainder of medication regimen for now - Pt reporting significant distress from intrusive thoughts - consider alternative options to reduce distress. Did not tolerate 15 mg dose of olanzapine due to EPS, but could consider split dosing 5 mg / 10 mg. Could also consider retrial of risperidone, or alternative agents. 04/14 - Reviewed medication options above with the patient, who does not desire to change atypical antipsychotic medications at this time. She was agreeable to titrating the dose to 5mg qAM and 10mg qHS. - Continue to monitor for EPS as dose is titrated 04/15 -I again spoke with the patient about possibly changing her antipsychotic, mood stabilizing medication from olanzapine to risperidone. The patient says that she feels fairly strongly that she would prefer to remain on olanzapine because she feels that it does help stabilize her mood. -While the patient does endorse feelings of depression, she tells us that the depression seems to be following her anxiety and distress regarding a series of alien, intrusive ego dystonic thoughts that she has great difficulty dismissing. 04/16--now willing to start Risperdal so d/c hs dose of Zyprexa and replace with Risperdal 1 mg. Reassess in am for cross taper. 04/17--not tolerating Risperdal 1 mg due to orthostasis. Reassess for restart of Zyprexa this hs vs prn Haldol. 04/19 -Diphenhydramine discontinued over the weekend due to anticholinergic side effects. Continue olanzapine 10 mg daily. She has haloperidol 1 mg every 4 hours as needed which she has not yet received. -Continue sertraline 200 mg daily and mirtazapine 30 mg at bedtime. 04/20 -Patient is received several doses of haloperidol 1 mg which has been helpful, and that she is tolerating it well, will increase to 2 mg every 4 hours as needed. If this is effective, can cross taper from olanzapine to halo peridol. -Continue to encourage patient to be out of her room and active during the day, even if unable to tolerate full groups; continued assistance for ADLs. 04/21 -Discontinue olanzapine as has not been effective and due to concern for extrapyramidal symptoms. Continue haloperidol and schedule 2mg 3 times daily, with an as needed dose as well. 04/22 -The patient continues to report feeling depressed, within the context of a history of bipolar disorder. A concern today is that the patient has been receiving multiple serotonergic medications and at the same time, may be exhibiting symptoms of serotonin syndrome. Accordingly, we will be holding mirtazapine, sertraline, and zolpidem. I have disclosed this concern, explained the causes of serotonin syndrome to the patient and she indicated understanding. 04/23 holding psychiatric meds expect for clonazepam a for now given possible serotonin syndrome. group underwriter considering retrial of Risperdal when appropriate given past tolerability (with possibility of titratuating dose past 1mg bid that took in past) if tolerated decently in last trial, recent trial of orthostatic concerns might be more about overall presentation then Risperdal given vitals as whole lately. also Lamictal a possible med option given aim to avoid worsening possible serotonin syndrome. pt not willing to take prior or new Meds currently and group underwriter seeking to hold such trails for now as well. 04/25 -Risperidone 0.5 mg in the morning and 1 mg at bedtime has been restarted. The patient previously said that she would refused to take risperidone because it "does not help." However, clinical data indicates that the patient has in the past responded quite well to risperidone and although she may have experienced an exacerbation of her [id number] while taking risperidone, we have been able to convince her to resume risperidone at this point. In the past, she reportedly has taken risperidone 1 mg twice a day, and we have started at slightly lower than thiswith the plan to titrate as indicated. -We are continuing clonazepam 0.5 mg twice a day (9 and 1600) as well as clonazepam 1 mg at bedtime. The patient appears to be responding favorably to this. 04/26 -patient appears slightly improved; continue medication adjustments as above. Encourage her to be out of her room and participating to the extent that she is able. 04/27 -encourage patient to be up during the day to consolidate and improve sleep at night. 04/28 - maintained risperidone at current dose with consideration of titrating dose up slightly if progress being obtaining appears to be plateauing. maintained Klonopin at current dosage. 04/29 -both staff and the patient, herself, believe that she is continuing to improve. At this point, we will not increase her dose of risperidone further but we will continue to observe. We will also maintain the current Klonopin dosage 04/30 -slow improvement continues. Still unwilling to discuss intrusive thoughts of hurting others and does not feel safe leaving the hospital. 05/01 -scheduled family meeting tomorrow for discharge planning. 05/02 -meeting held with the and son for discharge planning; patient distraught and overwhelmed, wants to be well enough to go home, but does not yet feel ready. Briefly discussed ECT as a good treatment option if medications are ineffective, which was very upsetting to the patient 05/03 - Continue current medication regimen - Coordinate with son regarding previously effective antidepressant medication; consider initiating an antidepressant as mood remains low - Continue to encourage consideration of PT evaluation, mobile psych nursing, or other outpatient supports as willing (2) Generalized anxiety disorder: 03/31 -patient extremely anxious, with negative, ruminative thoughts, and severe restlessness. -Increase sertraline as above. -At home dose of hydroxyzine 25 mg at bedtime, and offer 25 mg every 4 hours as needed anxiety. -Continue clonazepam 0.5 mg every morning, and add 0.5 mg dose twice daily as needed if hydroxyzine an effective, but monitor for unsteadiness and oversedation. 04/01/19 -As noted above, some of the patient's anxious distress may be secondary to eps side effects (akathisia). -On examination, the patient does have cogwheel rigidity. However, she tells me that she feels that she is somewhat less anxious and notes that the medications for her anxiety "may be helping." 04/02 -Patient remains highly anxious. Considered alternative options for bedtime hydroxyzine to reduce anticholinergic burden. Elected to trial the Remeron at 15 mg p.o. nightly which may help off label for feelings of restlessness. Hopefully this will also help to reduce her anxiety and provide some appetite stimulation but will need to watch for mood cycling in combination with the sertraline. If she does well with this agent, could consider using it as antidepressant monotherapy (tapering her off the Zoloft) 04/04 - Continue current medication regimen - consider increase or mirtazapine and possible taper of sertraline as outlined above; wanting to ensure tolerance prior to switching to mirtazapine as monotherapy 04/05 - Titrating mirtazapine to 30mg this evening; will continue sertraline at 100mg until efficacy of mirtazapine can be determined - Continue remainder of medication regimen unchanged 04/08 -As above, we are increasing her dose of sertraline to a dose of 125 mg daily to treat anxiety and depression. We will continue olanzapine to serve as a mood stabilizer given the patient's diagnosis of bipolar disorder. -Also as noted above, we have added diphenhydramine 12.5 mg twice a day for extraparametal side effects, persistent) EPS, and we will discontinue Artane. Hopefully, diphenhydramine will help not only with extraparametal side effects but, also, with the patient's generalized anxiety. -The patient's standing dose of clonazepam has been increased from 0.5 mg in the morning to 0.5 mg 3 times a day. She will also have available to her as needed clonazepam. Material risks and anticipated benefits of clonazepam have been reviewed with the patient, and it has been explained that this is not expected to be a long-term intervention but, instead, is being used to help bring the patient's anxiety under better control so that she can more fruitful he participate in the treatment on the. 04/09 - Continue current medication regimen; consider need for further titration of sertraline to 150mg daily - Patient appearing less restless/anxious, though she describes her symptoms to be unchanged 04/10 - Continue current medication regimen; consider titration of sertraline as above - pt limited in willingness to discuss multiple changes today - Patient's appearance is improving, though she reports limited changes in her condition 04/11 - Titrate sertraline to 150mg daily. Pt reporting daytime sedation, can consider possible reduction of prns at some point, when she begins to be more effective - Pt reporting mild improvements in anxiety 04/12 - Continue sertraline 150mg daily - In attempt to reduce sedation, but maintain progress with reducing anxie ty/restlessness - will titrate diphenhydramine to 25mg daily (this will also allow for medication in capsule form, which patient prefers). Will discontinue scheduled TID clonazepam, but leave available prn dosing should patient require it during the day for anxiety or other concerns. - Staff also reporting apneic episodes observed at night; reducing reliance on benzodiazepines will be ideal as will reduce additional risk for respiratory concerns - Continue to encourage development of healthy and effective coping strategies 04/13 - Titrating sertraline to 175mg daily - Continue remainder of medication regimen as above - Pt has been more open about intrusive homicidal thoughts, distressing, with no intent to act. Pt is very disturbed by these thoughts - Patient unwilling for additional medication adjustments today; however, could consider titration of olanzapine. Patient did experience significant EPS when she received a 15 mg dose early in her admission. Consider split dosing - 5mg/10mg - Also consider retrial for risperidone (beneficial on last admission), possibly as prn and then scheduled in place of olanzapine if effective. Can also consider trial of another atypical antipsychotic which may better target concerns. 04/14 - Continue medication adjustments as above - olanzapine 5mg qAM and 10mg qHS 04/15 -The patient's anxiety symptoms seem to be a combination of anxious distress associated with ego-dystonic intrusive thoughts, as well as restlessness associated with extrapyramidal side effects from her medications. -She has tolerated an increase in her dose of diphenhydramine from 12.5 mg to 25 mg without excess sedation, and she tells us that she much prefers this because she did not like the taste of liquid diphenhydramine. -We are beginning clonazepam 0.5 mg up to 3 times a day as needed for anxiety. The patient has a past history of favorable response to this medication. Material risks, including, but not limited to excess sedation, increased risk of accident, increased risk for falls, physical habituation with complicated withdrawal that may may be fatal and can include seizures, and cognitive impairment. The patient indicates understanding and notes that she has had no problems taking the clonazepam in the past. (3) Orthostatic dizziness: started 04/17, repeat labs and monitor sodium (133). 04/18 - BMP notable for hyponatremia with sodium of 132. 04/19 -dizziness resolved, normotensive. Sodium 133. Encourage fluid intake. 04/22 - The patient is on bedrest and is being helped to the bathroom by staff. 04/29 -resolved. (4) Sweating abnormality: 04/21 -patient has had multiple episodes over the past few days of excessive sweating, found to be drenched in sweat and tremulous. She has been drinking excessively at times, but other times with poor oral intake. Her sodium has been slightly low. Today she is hypertensive and tachycardic. Will consult the hospitalist service for assistance and to rule out any medical contributors to her current state; reviewed with Dr. Nielsen, and appreciate any recommendations.. 04/22 -It is possible that the symptoms (diaphoresis and hypertension close disease may be secondary to serotonin syndrome. We have obtained a consult from a hospitalist, but the exact etiology has not been determined. 04/25 -This appears to have resolved. It may have been a function of serotonin syndrome, or it may have represented panic episodes. 04/29 -Resolved. (5) Serotonin syndrome: 04/22/19 -Serotonin syndrome is suspected. The patient does present with a number of symptoms that are suggestive of this. These include worsening confusion, muscle stiffness, recent onset diarrhea, diaphoresis, and pupillary dilatation. -We will treat symptomatically with benzodiazepines (Klonopin). She is also been given an order for Periactin 12 mg and we will continue this medication as indicated and tolerated. The diarrhea may be secondary to Periactin. -Serotonergic agents are being held pending further evaluation. 04/23 holding meds that have serotonin impact for now and monitoring vitals and for s/s of serotonin syndrome. with potential for more periactin doses if seems needed. 04/24 improving will attempt retrial of one med - risperdal given past response to it, monitoring closely for s/s serotonin syndrome 04/25 -Muscle stiffness, diaphoresis, diarrhea, extreme anxiety/confusion, and pupillary dilatation all appear to have resolved. Inventory Assets Strengths: Supportive . Cooperative with treatment. Motivated to recovery. Insight into her need for treatment. Intelligent. Needs: [place] from anxiety, mood alterations, and intrusive alien thoughts. Risk Factors Assessment Male: No : Yes Do You Have Access To A Gun?: Yes ( has guns that are locked) Health Problems: Yes Mental Health Diagnoses: Yes Substance Use Disorders: No Previous Attempt: No Family History of Suicide: No Previous Psychiatric Hospitalization: Yes Hopelessness: Yes Smoker: No Protective Factors Assessment : Yes Responsible for Young Children: No Employed: No Supportive Family: Yes Good Rapport with Provider: Yes Interval History Identifying Information VALENTINA CLARK is a 74-year-old F who currently lives in [place] with her , has a history of bipolar disorder type I and generalized anxiety disorder, and was admitted on 03/30/19 19:35 on a 201 voluntary commitment for severe anxiety and inability to function. Chief Complaint "I'm feeling a little better. I'd just like to get home." Review of Systems Notes Constitutional: reports ongoing fatigue Cardiovascular: denied Respiratory: denied Gastrointestinal: denied Neurological: denied Psychiatric: denies symptoms other than stated above Total of at least 10 systems reviewed, pertinent positives as above and in HPI. Sleep Information Total Hours of Sleep: 8 Sleep Comments: periods of breath cessation then louder inhalation with soft snoring resumed Meal Information Percent Meal Consumed - Breakfast: 50 Percent Meal Consumed - Lunch: 100 Percent Meal Consumed - Dinner: 25 Nutrition Comment: Breakfast a few bites of eggs and 100% nutrition drink Subjective Subjective Patient was seen & assessed and interval progress reviewed with nursing and social work. Staff report the patient continues to endorse low energy, and admitted to feeling sad about her son returning home. She participated in a meeting with her and son yesterday, but was reportedly resistant to recommendations made by staff to increase support at home after discharge. Pt was seen today to assess progress since admission. Pt states she is "ok", and admits that she is saddened that she won't be celebrating her birthday at home. Pt does share (with a smile) that her family is coming to see her, and she already received a phone call from her this morning. Pt was asked about her meeting yesterday with her and son - and states, "It was ok, but didn't go as well as it should have gone." When asked to elaborate on how patient feels the meeting could have been improved, she is unable to provide any specific thoughts. Pt admits again to concerns about possible medication side effects in the future - and was reminded that she will be following with providers on an outpatient basis to identify and treat these should they occur. We discussed patient's desire to return home soon, and recommendations for additional in-home support were reiterated. Pt continues to feel that any intervention at home is both unnecessary and would cause increased financial stress. Pt admits that her mood remains rather low, and she continues to struggle with her energy. She is agreeable to initiation of an antidepressant medication, but does not recall the specific medication her son reported was beneficial previously. Pt believes she would be able to function at home, but admits that her family continues to verbalize some concerns. Pt did request and receive trimming of her nails today without incident. Physical Exam Psychiatric Orientation: alert, oriented x 3 and + guarded (with regard to recommended services and discussing negative thoughts) Apperance: appropriately dressed, appropriately groomed and appeared stated age Eye Contact: good eye contact Motor Behavior: no abnormal motor movements (observed primarily while laying in bed) Speech: normal rate/rhythm/volume of speech (soft tone) Affect: + depressed affect and + constricted affect Mood: + depressed mood ("Yeah, still rather low") Thought Process: goal directed thought process Thought Content: + hopelessness ongoing intrusive egodystonic thoughts about harming others Suicidal Thoughts: + reports suicidal thoughts Homicidal Thoughts: denies homicidal intent Hallucinations: no auditory hallucinations and no visual hallucinations Cognition: attention grossly intact and language grossly intact Insight: + impaired insight Judgement: + impaired judgement Vital Signs (Past 24 Hours) Last Vital Signs Temp 36.5 C 05/03/19 06:38 Pulse 102 H 05/03/19 06:39 Resp 18 05/03/19 06:38 BP 148/84 H 05/03/19 06:39 Pulse Ox 93 04/25/19 07:48 Results & Data Current Inpatient Medications Current Inpatient Medications: Current Inpatient Medications Acetaminophen (Tylenol) 650 mg PO Q4H PRN PRN Reason: Mild Pain Stop: 05/29/19 17:45 Last Admin: 05/02/19 11:49 Dose: 650 mg Documented by: Al Hydrox/Mg Hydrox/Simethicone (Maalox) 30 ml PO Q6H PRN PRN Reason: Indigestion Stop: 05/29/19 17:47 Bismuth Subsalicylate (Pepto-Bismol) 15 ml PO PRN PRN PRN Reason: Diarrhea Stop: 05/29/19 17:49 Clonazepam (Klonopin) 0.5 mg PO TID PRN PRN Reason: Anxiety Stop: 05/15/19 15:26 Last Admin: 04/25/19 02:46 Dose: 0.5 mg Documented by: Clonazepam (Klonopin) 1 mg PO HS PILI Stop: 05/25/19 21:59 Last Admin: 05/02/19 21:13 Dose: 1 mg Documented by: Clonazepam (Klonopin) 0.5 mg PO BID@0900,1600 PILI Stop: 05/25/19 15:59 Last Admin: 05/03/19 07:18 Dose: 0.5 mg Documented by: Clonidine HCl (Catapres) 0.1 mg PO Q4H PRN PRN Reason: Hypertension Stop: 05/11/19 09:16 Last Admin: 04/15/19 06:56 Dose: 0.1 mg Documented by: Haloperidol (Haldol) 2 mg PO Q4 PRN PRN Reason: Anxiety/Agitation Stop: 05/17/19 14:16 Last Admin: 04/21/19 07:32 Dose: 2 mg Documented by: Lisinopril (Zestril) 15 mg PO BID PILI Stop: 05/11/19 08:59 Last Admin: 05/03/19 07:15 Dose: 15 mg Documented by: Magnesium Hydroxide (Milk Of Magnesia) 30 ml PO DAILY PRN PRN Reason: Constipation Stop: 05/29/19 17:56 Risperidone (Risperdal) 1 mg PO HS PILI Stop: 05/24/19 21:59 Last Admin: 05/02/19 21:14 Dose: 1 mg Documented by: Risperidone (Risperdal) 0.5 mg PO QAM PILI Stop: 05/25/19 08:59 Last Admin: 05/03/19 07:16 Dose: 0.5 mg Documented by: Sodium Chloride ([place] Nasal) 2 sprays NA PRN PRN PRN Reason: Nasal Congestion Stop: 05/29/19 17:53 Mental Health & Subst Abuse Tx Psychiatrist Name of Psychiatrist: [facility] Carey Astudillo Psychiatrist's Date of Appointment with Psychiatrist: 05/09/19 Time of Appointment with Psychiatrist: 2:00 p.m. Psychiatric Appointment Comment: [address] [place] [address] Therapist Name of Therapist: [facility] Carye Petersen Therapist's Date of Therapist Appointment: 05/17/19 Time of Therapist Appointment: 1:30 p.m. Therapy Appointment Comment: [address] [place] [address] Post Discharge Appointments Primary Care Physician Name Of Family Doctor: [facility] - Dr. Ayala [facility] Date of Appointment with PCP: 05/10/19 Time of Appointment with PCP: 10:30 a.m. Provider Appointment Comment: [address], [address], [place] [address] Contact Information Discharge Discharge Address: [address] [place] [address], [place] [address] CPT Code CPT Code 26394
[2019-05-03] MEDS: risperiDONE 1 MG TABLET PO SCH (20:29)
[2019-05-03] MEDS: clonazePAM 1 MG TAB PO SCH (20:36)
[2019-05-04] MEDS: clonazePAM 0.5 MG TAB PO SCH ×2 (07:59→17:08)
[2019-05-04] MEDS: risperiDONE 0.5 MG TABLET PO SCH (07:59)
[2019-05-04] MEDS: LISINOPRIL 10 MG TAB PO SCH ×2 (07:59→20:34)
--- NOTE | 2019-05-04 10:16 | Psychiatric Progress Note ---
Date of Service May 04, 2019 Impression / Recommendations Impression Severe bipolar depression and anxiety are slowly improving, but continues to have intrusive, disturbing thoughts of harming others that she is struggling to deal with. Reporting improvement in ability to manage the thoughts, feeling closer to being able to function outside of the inpatient setting. and son remain concerned about patient's ability to function at home in her current condition, but recognize recent improvements. Pt remains resistant to recommendations for PT evaluation or referral for briefcase sewer/mobile psych nursing to assist with discharge planning and transition home. Reporting finances as a barrier despite reassurance of likely payment assistance. Pt continues to be at high risk of decompensation if discharged home without observation of consistency of improved mood and functioning; therefore, ongoing inpatient psychiatric treatment is medically necessary. (1) Bipolar 1 disorder: (1) Bipolar 1 disorder: 03/31 -current episode depressed with severe anxiety. -Clarify home med list, as there are some discrepancies (external medication history shows that she filled #30 olanzapine 10 mg tablets and hydroxyzine 25 mg tablets on 03/18/2019, but admission medication reconciliation indicates olanzapine 15 mg every afternoon and hydralazine 25 mg every afternoon). Nursing staff to call her and clarify this: Patient is not prescribed hydralazine, will remove medication. She did receive a dose last night, and blood pressure this morning was elevated 163/89, but on repeat 124/71. -Increase sertraline to 100 mg daily to target mood and anxiety, and watch for activation/mood stabilization. -It is unclear if her home dose of olanzapine is 10 or 15 mg; she received 15 mg last night, and I am concerned for EPS given her cogwheeling on exam and severe restlessness. Order benztropine 0.5 mg as needed, and reduce olanzapine to 10 milligrams at bedtime. Per she was only on 10mg olanzapine at home. May need to reduce dose further or switch to another antipsychotic if EPS does not improve. -Fasting lipid profile and glucose performed on 09/30/2018 for monitoring on an atypical antipsychotic, and were within normal limits. 04/01 -Contributing to the patient's severe anxiety may be akathisia associated with olanzapine and, possibly, sertraline. I have advised the patient accordingly, and she accepts my recommendation for a standing dose of Artane (trihexyphenidyl) -Patient otherwise indicates that she feels that she has been tolerating olanzapine well, and reports that she feels this medication has been helpful to her. -The patient's dose of sertraline has been increased to 100 mg daily 04/02 -Patient more unsteady today. Will hold any further doses of diphenhydramine for now. She does not have any cogwheeling; once she is able to relax the paratonia disappears -Patient now on moderate dose of SSRI. Reviewed she had been manic at last presentation. Considering Remeron trial which may help with restlessness and anxiety and allow for reduction of some of the anticholinergic medication she has been started on however patient appeared overwhelmed when attempting to discuss today and will defer for reconsideration tomorrow -patient refused physical therapy referral for imbalance today 04/04 - Continue current medication regimen, consider titration of mirtazapine with observation for activation 04/05 - Titrating mirtazapine to 30mg this evening - continue to monitor for possible activation and triggering of manic symptoms - Once efficacy is apparent, consider tapering sertraline to achieve antidepressant monotherapy - Continue remainder of medication regimen unchanged 04/06 - Patient reports mood and restlessness are slightly improved. - Worsening tachycardia with heart rate as high as 130, with worsening after Artane was started. As this medication can cause tachycardia, will decrease it to 1 mg twice daily. 04/07 -Tachycardia has resolved with lowered Artane dose. Restlessness is improved. 04/08 -While the patient's restlessness has improved, today, she continues to complain of restlessness and, on testing, demonstrates persistent cogwheeling. Currently, we will offer the patient a trial of diphenhydramine 12.5 mg twice a day. The target of diphenhydramine in this case is the patient's EPS, but we are also hopeful that it will aid in managing the patient's anxiety. -The patient is complaining of persistent anxiety and intrusive, ego dystonic thoughts that she tells me she is embarrassed to discuss. I offered the patient reassurances in this regard. -The patient reports that she is not having suicidal thoughts. 04/09 - 04/10 - Continue current medication regimen, reportedly demonstrating improvement 04/11 - Titrating sertraline to 150mg daily, continue remainder of current medication regimen 04/12 - Continue plan as above 04/13 - Titrating sertraline to 175mg daily, continue remainder of medication regimen for now - Pt reporting significant distress from intrusive thoughts - consider alternative options to reduce distress. Did not tolerate 15 mg dose of olanzapine due to EPS, but could consider split dosing 5 mg / 10 mg. Could also consider retrial of risperidone, or alternative agents. 04/14 - Reviewed medication options above with the patient, who does not desire to change atypical antipsychotic medications at this time. She was agreeable to titrating the dose to 5mg qAM and 10mg qHS. - Continue to monitor for EPS as dose is titrated 04/15 -I again spoke with the patient about possibly changing her antipsychotic, mood stabilizing medication from olanzapine to risperidone. The patient says that she feels fairly strongly that she would prefer to remain on olanzapine because she feels that it does help stabilize her mood. -While the patient does endorse feelings of depression, she tells us that the depression seems to be following her anxiety and distress regarding a series of alien, intrusive ego dystonic thoughts that she has great difficulty dismissing. 04/16--now willing to start Risperdal so d/c hs dose of Zyprexa and replace with Risperdal 1 mg. Reassess in am for cross taper. 04/17--not tolerating Risperdal 1 mg due to orthostasis. Reassess for restart of Zyprexa this hs vs prn Haldol. 04/19 -Diphenhydramine discontinued over the weekend due to anticholinergic side effects. Continue olanzapine 10 mg daily. She has haloperidol 1 mg every 4 hours as needed which she has not yet received. -Continue sertraline 200 mg daily and mirtazapine 30 mg at bedtime. 04/20 -Patient is received several doses of haloperidol 1 mg which has been helpful, and that she is tolerating it well, will increase to 2 mg every 4 hours as needed. If this is effective, can cross taper from olanzapine to haloperidol. -Continue to encourage patient to be out of her room and active during the day, even if unable to tolerate full groups; continued assistance for ADLs. 04/21 -Discontinue olanzapine as has not been effective and due to concern for extrapyramidal symptoms. Continue haloperidol and schedule 2mg 3 times daily, with an as needed dose as well. 04/22 -The patient continues to report feeling depressed, within the context of a history of bipolar disorder. A concern today is that the patient has been receiving multiple serotonergic medications and at the same time, may be exhibiting symptoms of serotonin syndrome. Accordingly, we will be holding mirtazapine, sertraline, and zolpidem. I have disclosed this concern, explained the causes of serotonin syndrome to the patient and she indicated understanding. 04/23 holding psychiatric meds expect for clonazepam a for now given possible serotonin syndrome. designer writer considering retrial of Risperdal when appropriate given past tolerability (with possibility of titratuating dose past 1mg bid that took in past) if tolerated decently in last trial, recent trial of orthostatic concerns might be more about overall presentation then Risperdal given vitals as whole lately. also Lamictal a possible med option given aim to avoid worsening possible serotonin syndrome. pt not willing to take prior or new Meds currently and designer writer seeking to hold such trails for now as well. 04/25 -Risperidone 0.5 mg in the morning and 1 mg at bedtime has been restarted. The patient previously said that she would refused to take risperidone because it "does not help." However, clinical data indicates that the patient has in the past responded quite well to risperidone and although she may have experienced an exacerbation of her [id number] while taking risperidone, we have been able to convince her to resume risperidone at this point. In the past, she reportedly has taken risperidone 1 mg twice a day, and we have started at slightly lower than thiswith the plan to titrate as indicated. -We are continuing clonazepam 0.5 mg twice a day (9 and 1600) as well as clonazepam 1 mg at bedtime. The patient appears to be responding favorably to this. 04/26 -patient appears slightly improved; continue medication adjustments as above. Encourage her to be out of her room and participating to the extent that she is able. 04/27 -encourage patient to be up during the day to consolidate and improve sleep at night. 04/28 - maintained risperidone at current dose with consideration of titrating dose up slightly if progress being obtaining appears to be plateauing. maintained Klonopin at current dosage. 04/29 -both staff and the patient, herself, believe that she is continuing to improve. At this point, we will not increase her dose of risperidone further but we will continue to observe. We will also maintain the current Klonopin dosage 04/30 -slow improvement continues. Still unwilling to discuss intrusive thoughts of hurting others and does not feel safe leaving the hospital. 05/01 -scheduled family meeting tomorrow for discharge planning. 05/02 -meeting held with the and son for discharge planning; patient distraught and overwhelmed, wants to be well enough to go home, but does not yet feel ready. Briefly discussed ECT as a good treatment option if medications are ineffective, which was very upsetting to the patient 05/03 - Continue current medication regimen - Coordinate with son regarding previously effective antidepressant medication; consider initiating an antidepressant as mood remains low - Continue to encourage consideration of PT evaluation, mobile psych nursing, or other outpatient supports as willing 05/04 - Continue current medication regimen - pt was offered antidepressant medication (consideration for escitalopram), but was declined at this time as pt states, "my medications are working" - Continue to offer supportive services on an outpatient basis to ease transi tion home and improve functioning in the outpatient setting, patient remains resistant - Coordinate care with and son regarding these services - [facility]PR discontinued as part of discharge planning process, as improvement has been observed in anxiety and functioning overall (2) Generalized anxiety disorder: 03/31 -patient extremely anxious, with negative, ruminative thoughts, and severe restlessness. -Increase sertraline as above. -At home dose of hydroxyzine 25 mg at bedtime, and offer 25 mg every 4 hours as needed anxiety. -Continue clonazepam 0.5 mg every morning, and add 0.5 mg dose twice daily as needed if hydroxyzine an effective, but monitor for unsteadiness and oversedation. 04/01/19 -As noted above, some of the patient's anxious distress may be secondary to eps side effects (akathisia). -On examination, the patient does have cogwheel rigidity. However, she tells me that she feels that she is somewhat less anxious and notes that the medications for her anxiety "may be helping." 04/02 -Patient remains highly anxious. Considered alternative options for bedtime hydroxyzine to reduce anticholinergic burden. Elected to trial the Remeron at 15 mg p.o. nightly which may help off label for feelings of restlessness. Hopefully this will also help to reduce her anxiety and provide some appetite stimulation but will need to watch for mood cycling in combination with the sertraline. If she does well with this agent, could consider using it as antidepressant monotherapy (tapering her off the Zoloft) 04/04 - Continue current medication regimen - consider increase or mirtazapine and possible taper of sertraline as outlined above; wanting to ensure tolerance prior to switching to mirtazapine as monotherapy 04/05 - Titrating mirtazapine to 30mg this evening; will continue sertraline at 100mg until efficacy of mirtazapine can be determined - Continue remainder of medication regimen unchanged 04/08 -As above, we are increasing her dose of sertraline to a dose of 125 mg daily to treat anxiety and depression. We will continue olanzapine to serve as a mood stabilizer given the patient's diagnosis of bipolar disorder. -Also as noted above, we have added diphenhydramine 12.5 mg twice a day for extraparametal side effects, persistent) EPS, and we will discontinue Artane. Hopefully, diphenhydramine will help not only with extraparametal side effects but, also, with the patient's generalized anxiety. -The patient's standing dose of clonazepam has been increased from 0.5 mg in the morning to 0.5 mg 3 times a day. She will also have available to her as needed clonazepam. Material risks and anticipated benefits of clonazepam have been reviewed with the patient, and it has been explained that this is not expected to be a long-term intervention but, instead, is being used to help bring the patient's anxiety under better control so that she can more fruitful he participate in the treatment on the. 04/09 - Continue current medication regimen; consider need for further titration of sertraline to 150mg daily - Patient appearing less restless/anxious, though she describes her symptoms to be unchanged 04/10 - Continue current medication regimen; consider titration of sertraline as above - pt limited in willingness to discuss multiple changes today - Patient's appearance is improving, though she reports limited changes in her condition 04/11 - Titrate sertraline to 150mg daily. Pt reporting daytime sedation, can consider possible reduction of prns at some point, when she begins to be more ef fective - Pt reporting mild improvements in anxiety 04/12 - Continue sertraline 150mg daily - In attempt to reduce sedation, but maintain progress with reducing anxiety/restlessness - will titrate diphenhydramine to 25mg daily (this will also allow for medication in capsule form, which patient prefers). Will discontinue scheduled TID clonazepam, but leave available prn dosing should patient require it during the day for anxiety or other concerns. - Staff also reporting apneic episodes observed at night; reducing reliance on benzodiazepines will be ideal as will reduce additional risk for respiratory concerns - Continue to encourage development of healthy and effective coping strategies 04/13 - Titrating sertraline to 175mg daily - Continue remainder of medication regimen as above - Pt has been more open about intrusive homicidal thoughts, distressing, with no intent to act. Pt is very disturbed by these thoughts - Patient unwilling for additional medication adjustments today; however, could consider titration of olanzapine. Patient did experience significant EPS when she received a 15 mg dose early in her admission. Consider split dosing - 5mg/10mg - Also consider retrial for risperidone (beneficial on last admission), possibly as prn and then scheduled in place of olanzapine if effective. Can also consider trial of another atypical antipsychotic which may better target concerns. 04/14 - Continue medication adjustments as above - olanzapine 5mg qAM and 10mg qHS 04/15 -The patient's anxiety symptoms seem to be a combination of anxious distress associated with ego-dystonic intrusive thoughts, as well as restlessness associated with extrapyramidal side effects from her medications. -She has tolerated an increase in her dose of diphenhydramine from 12.5 mg to 25 mg without excess sedation, and she tells us that she much prefers this because she did not like the taste of liquid diphenhydramine. -We are beginning clonazepam 0.5 mg up to 3 times a day as needed for anxiety. The patient has a past history of favorable response to this medication. Material risks, including, but not limited to excess sedation, increased risk of accident, increased risk for falls, physical habituation with complicated withdrawal that may may be fatal and can include seizures, and cognitive impairment. The patient indicates understanding and notes that she has had no problems taking the clonazepam in the past. 05/04 - Recommended addition of escitalopram to target ongoing depressive symptoms and anxiety - with long-term goal to taper off clonazepam which is not ideal for the long-term - Pt declines initiation at this time, feeling her current regimen is effective (3) Orthostatic dizziness: started 04/17, repeat labs and monitor sodium (133). 04/18 - BMP notable for hyponatremia with sodium of 132. 04/19 -dizziness resolved, normotensive. Sodium 133. Encourage fluid intake. 04/22 - The patient is on bedrest and is being helped to the bathroom by staff. 04/29 -resolved. (4) Sweating abnormality: 04/21 -patient has had multiple episodes over the past few days of excessive sweating, found to be drenched in sweat and tremulous. She has been drinking excessively at times, but other times with poor oral intake. Her sodium has been slightly low. Today she is hypertensive and tachycardic. Will consult the hospitalist service for assistance and to rule out any medical contributors to her current state; reviewed with Dr. Nielsen, and appreciate any recommendations.. 04/22 -It is possible that the symptoms (diaphoresis and hypertension close disease may be secondary to serotonin syndrome. We have obtained a consult from a hospitalist, but the exact etiology has not been determined. 04/25 -This appears to have resolved. It may have been a function of serotonin syndrome, or it may have represented panic episodes. 04/29 -Resolved. (5) Serotonin syndrome: 04/22/19 -Serotonin syndrome is suspected. The patient does present with a number of symptoms that are suggestive of this. These include worsening confusion, muscle stiffness, recent onset diarrhea, diaphoresis, and pupillary dilatation. -We will treat symptomatically with benzodiazepines (Klonopin). She is also been given an order for Periactin 12 mg and we will continue this medication as indicated and tolerated. The diarrhea may be secondary to Periactin. -Serotonergic agents are being held pending further evaluation. 04/23 holding meds that have serotonin impact for now and monitoring vitals and for s/s of serotonin syndrome. with potential for more periactin doses if seems needed. 04/24 improving will attempt retrial of one med - risperdal given past response to it, monitoring closely for s/s serotonin syndrome 04/25 -Muscle stiffness, diaphoresis, diarrhea, extreme anxiety/confusion, and pupillary dilatation all appear to have resolved. Inventory Assets Strengths: Supportive . Cooperative with treatment. Motivated to recovery. Insight into her need for treatment. Intelligent. Needs: [place] from anxiety, mood alterations, and intrusive alien thoughts. Risk Factors Assessment Male: No : Yes Do You Have Access To A Gun?: Yes ( has guns that are locked) Health Problems: Yes Mental Health Diagnoses: Yes Substance Use Disorders: No Previous Attempt: No Family History of Suicide: No Previous Psychiatric Hospitalization: Yes Hopelessness: Yes Smoker: No Protective Factors Assessment : Yes Responsible for Young Children: No Employed: No Supportive Family: Yes Good Rapport with Provider: Yes Interval History Identifying Information VALENTINA CLARK is a 74-year-old F who currently lives in [place] with her , has a history of bipolar disorder type I and generalized anxiety disorder, and was admitted on 03/30/19 19:35 on a 201 voluntary commitment for severe anxiety and inability to function. Chief Complaint "I finally got a good night sleep. But I need more nights like that." Review of Systems Notes Constitutional: reports improved sleep last evening, but ongoing fatigue Cardiovascular: denied Respiratory: denied Gastrointestinal: denied Neurological: denied Psychiatric: denies symptoms other than stated above Total of at least 10 systems reviewed, pertinent positives as above and in HPI. Sleep Information Total Hours of Sleep: 8.5 Sleep Comments: pt on q-15 minute checks Meal Information Percent Meal Consumed - Breakfast: 100 Percent Meal Consumed - Lunch: 80 Percent Meal Consumed - Dinner: 100 Nutrition Comment: Breakfast a few bites of eggs and 100% nutrition drink Subjective Subjective Patient was seen & assessed and interval progress reviewed with treatment team. Staff reports the patient has been appearing brighter on the unit, and is more spontaneous in conversations. Although improvement in functioning has been observed, patient remains resistant to staff's recommendation for consideration of additional outpatient services. Pt was seen today to assess progress since admission. Pt states she is "ok" today, and states, "I finally got a good night sleep." Pt states that she continues to feel fatigued, as she has not slept well for most of her stay. Pt spontaneously verbalizes concerns to this provider regarding recommended outpatient support options which have been discussed. Topics of case management, mobile psych nursing or in-home assistance were suggested; however, patient has several concerns with these ideas. 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 She also expresses concerns regarding their ability to afford the services. This provider attempted to reassure the patient, discussing that these services are widely recommend by us and that the individuals won't remain "strangers" for long. We also discussed that [id number] expenses are likely to be minimal after insurance coverage is factored in. Despite these attempts at reassurance, the patient continues to verbalize that she is not interested in considering the services. This provider mentioned her feeling that additional support would be helpful - to which patient states, "he would agree we don't need it, if he sat down and looked at the finances, I'm sure." We moved on from this conversation to discuss addition of an antidepressant medication to target reported depressive symptoms and ongoing anxiety. Despite attempts to provide education and reassurance, patient states, "why would I add something new? I feel my medications are working fine." She did agree to keep this as an option should she find her mood worsening in the future. Pt denies SI or other concerns today. She states she feels she would be able to function outside of the hospital in her current condition and feels she may be ready for discharge soon. Physical Exam Psychiatric Orientation: alert, oriented x 3 and cooperative (superficially, remains resistant to recommended treatments) Apperance: appropriately dressed (casually in zip-up sweatshirt and scrub pants), appropriately groomed (hair pulled back in gera) and appeared stated age Eye Contact: good eye contact Motor Behavior: steady gait and station and no abnormal motor movements Speech: normal rate/rhythm/volume of speech Affect: + anxious affect, + constricted affect and mood congruent with affect Mood: + anxious mood (when discussing recommended outpatient supports); no depressed mood "Ok" and "better today" Thought Process: goal directed thought process and clear/coherent thought process Thought Content: reality based without delusions; no hopelessness Suicidal Thoughts: denies suicidal thoughts and denies suicidal intent Homicidal Thoughts: denies homicidal thoughts Hallucinations: no auditory hallucinations and no visual hallucinations Cognition: attention grossly intact and language grossly intact Estimated Intelligence: consistent with education level Insight: + fair insight Judgement: + fair judgement Vital Signs (Past 24 Hours) Last Vital Signs Temp 36.3 C L 05/04/19 06:46 Pulse 93 H 05/04/19 06:47 Resp 18 05/04/19 06:46 BP 154/102 H 05/04/19 06:47 Pulse Ox 93 04/25/19 07:48 Results & Data Current Inpatient Medications Current Inpatient Medications: Current Inpatient Medications Acetaminophen (Tylenol) 650 mg PO Q4H PRN PRN Reason: Mild Pain Stop: 05/29/19 17:45 Last Admin: 05/02/19 11:49 Dose: 650 mg Documented by: Al Hydrox/Mg Hydrox/Simethicone (Maalox) 30 ml PO Q6H PRN PRN Reason: Indigestion Stop: 05/29/19 17:47 Bismuth Subsalicylate (Pepto-Bismol) 15 ml PO PRN PRN PRN Reason: Diarrhea Stop: 05/29/19 17:49 Clonazepam (Klonopin) 0.5 mg PO TID PRN PRN Reason: Anxiety Stop: 05/15/19 15:26 Last Admin: 04/25/19 02:46 Dose: 0.5 mg Documented by: Clonazepam (Klonopin) 1 mg PO HS [facility] Stop: 05/25/19 21:59 Last Admin: 05/03/19 20:36 Dose: 1 mg Documented by: Clonazepam (Klonopin) 0.5 mg PO BID@0900,1600 [facility] Stop: 05/25/19 15:59 Last Admin: 05/04/19 07:59 Dose: 0.5 mg Documented by: Clonidine HCl (Catapres) 0.1 mg PO Q4H PRN PRN Reason: Hypertension Stop: 05/11/19 09:16 Last Admin: 04/15/19 06:56 Dose: 0.1 mg Documented by: Haloperidol (Haldol) 2 mg PO Q4 PRN PRN Reason: Anxiety/Agitation Stop: 05/17/19 14:16 Last Admin: 04/21/19 07:32 Dose: 2 mg Documented by: Lisinopril (Zestril) 15 mg PO BID [facility] Stop: 05/11/19 08:59 Last Admin: 05/04/19 07:59 Dose: 15 mg Documented by: Magnesium Hydroxide (Milk Of Magnesia) 30 ml PO DAILY PRN PRN Reason: Constipation Stop: 05/29/19 17:56 Risperidone (Risperdal) 1 mg PO HS [facility] Stop: 05/24/19 21:59 Last Admin: 05/03/19 20:29 Dose: 1 mg Documented by: Risperidone (Risperdal) 0.5 mg PO QAM PILI Stop: 05/25/19 08:59 Last Admin: 05/04/19 07:59 Dose: 0.5 mg Documented by: Sodium Chloride ([place] Nasal) 2 sprays NA PRN PRN PRN Reason: Nasal Congestion Stop: 05/29/19 17:53 Mental Health & Subst Abuse Tx Psychiatrist Name of Psychiatrist: BENJAMIN Carey Astudillo Psychiatrist's Date of Appointment with Psychiatrist: 05/09/19 Time of Appointment with Psychiatrist: 2:00 p.m. Psychiatric Appointment Comment[facility] [address] [facility] [place] [address] Therapist Name of Therapist: DEYSI Petersen Therapist's Date of Therapist Appointment: 05/17/19 Time of Therapist Appointment: 1:30 p.m. Therapy Appointment Comment: [address] [facility] [facility] [place] [address] Post Discharge Appointments Primary Care Physician Name Of Family Doctor: [facility] - [facility] Date of Appointment with PCP: 05/10/19 Time of Appointment with PCP: 10:30 a.m. Provider Appointment Comment: [address], [address], [place] [address] Contact Information Discharge Discharge Address: [address] [place] [id number] CPT Code CPT Code 06024
[2019-05-04] MEDS: clonazePAM 1 MG TAB PO SCH (20:34)
[2019-05-04] MEDS: risperiDONE 1 MG TABLET PO SCH (20:34)
[2019-05-05] MEDS: risperiDONE 0.5 MG TABLET PO SCH (07:22)
[2019-05-05] MEDS: LISINOPRIL 10 MG TAB PO SCH ×2 (07:22→20:55)
[2019-05-05] MEDS: clonazePAM 0.5 MG TAB PO SCH ×2 (07:22→16:01)
--- NOTE | 2019-05-05 13:00 | Psychiatric Progress Note ---
Date of Service May 05, 2019 Impression / Recommendations Impression Severe bipolar depression and anxiety are slowly improving, but continues to have intrusive, disturbing thoughts of harming others that she is struggling to deal with. Reporting improvement in ability to manage the thoughts, feeling closer to being able to function outside of the inpatient setting. was contacted regarding patient's request for discharge soon, he admits to feeling comfortable with the patient coming home whenever she feels ready. Pt showed some initial resistance to recommended additional outpatient support, but is now willing for a mattress spring encaser if the meetings occur outside of her home. Pt has been showing significant improvements. While her risk of decompensation in the outpatient setting remains high when compared to the general population, most risk factors amenable to inpatient admission have been mitigated, and patient is requesting discharge home soon. (1) Bipolar 1 disorder: (1) Bipolar 1 disorder: 03/31 -current episode depressed with severe anxiety. -Clarify home med list, as there are some discrepancies (external medication history shows that she filled #30 olanzapine 10 mg tablets and hydroxyzine 25 mg tablets on 03/18/2019, but admission medication reconciliation indicates olanzapine 15 mg every afternoon and hydralazine 25 mg every afternoon). Nursing staff to call her and clarify this: Patient is not prescribed hydralazine, will remove medication. She did receive a dose last night, and blood pressure this morning was elevated 163/89, but on repeat 124/71. -Increase sertraline to 100 mg daily to target mood and anxiety, and watch for activation/mood stabilization. -It is unclear if her home dose of olanzapine is 10 or 15 mg; she received 15 mg last night, and I am concerned for EPS given her cogwheeling on exam and severe restlessness. Order benztropine 0.5 mg as needed, and reduce olanzapine to 10 milligrams at bedtime. Per she was only on 10mg olanzapine at home. May need to reduce dose further or switch to another antipsychotic if EPS does not improve. -Fasting lipid profile and glucose performed on 09/30/2018 for monitoring on an atypical antipsychotic, and were within normal limits. 04/01 -Contributing to the patient's severe anxiety may be akathisia associated with olanzapine and, possibly, sertraline. I have advised the patient accordingly, and she accepts my recommendation for a standing dose of Artane (trihexyphenidyl) -Patient otherwise indicates that she feels that she has been tolerating olanzapine well, and reports that she feels this medication has been helpful to her. -The patient's dose of sertraline has been increased to 100 mg daily 04/02 -Patient more unsteady today. Will hold any further doses of diphenhydramine for now. She does not have any cogwheeling; once she is able to relax the paratonia disappears -Patient now on moderate dose of SSRI. Reviewed she had been manic at last presentation. Considering Remeron trial which may help with restlessness and anxiety and allow for reduction of some of the anticholinergic medication she has been started on however patient appeared overwhelmed when attempting to disc uss today and will defer for reconsideration tomorrow -patient refused physical therapy referral for imbalance today 04/04 - Continue current medication regimen, consider titration of mirtazapine with observation for activation 04/05 - Titrating mirtazapine to 30mg this evening - continue to monitor for possible activation and triggering of manic symptoms - Once efficacy is apparent, consider tapering sertraline to achieve antidepressant monotherapy - Continue remainder of medication regimen unchanged 04/06 - Patient reports mood and restlessness are slightly improved. - Worsening tachycardia with heart rate as high as 130, with worsening after Artane was started. As this medication can cause tachycardia, will decrease it to 1 mg twice daily. 04/07 -Tachycardia has resolved with lowered Artane dose. Restlessness is improved. 04/08 -While the patient's restlessness has improved, today, she continues to complain of restlessness and, on testing, demonstrates persistent cogwheeling. Currently, we will offer the patient a trial of diphenhydramine 12.5 mg twice a day. The target of diphenhydramine in this case is the patient's EPS, but we are also hopeful that it will aid in managing the patient's anxiety. -The patient is complaining of persistent anxiety and intrusive, ego dystonic thoughts that she tells me she is embarrassed to discuss. I offered the patient reassurances in this regard. -The patient reports that she is not having suicidal thoughts. 04/09 - 04/10 - Continue current medication regimen, reportedly demonstrating improvement 04/11 - Titrating sertraline to 150mg daily, continue remainder of current medication regimen 04/12 - Continue plan as above 04/13 - Titrating sertraline to 175mg daily, continue remainder of medication regimen for now - Pt reporting significant distress from intrusive thoughts - consider alternative options to reduce distress. Did not tolerate 15 mg dose of olanzapine due to EPS, but could consider split dosing 5 mg / 10 mg. Could also consider retrial of risperidone, or alternative agents. 04/14 - Reviewed medication options above with the patient, who does not desire to change atypical antipsychotic medications at this time. She was agreeable to titrating the dose to 5mg qAM and 10mg qHS. - Continue to monitor for EPS as dose is titrated 04/15 -I again spoke with the patient about possibly changing her antipsychotic, mood stabilizing medication from olanzapine to risperidone. The patient says that she feels fairly strongly that she would prefer to remain on olanzapine because she feels that it does help stabilize her mood. -While the patient does endorse feelings of depression, she tells us that the depression seems to be following her anxiety and distress regarding a series of alien, intrusive ego dystonic thoughts that she has great difficulty dismissing. 04/16--now willing to start Risperdal so d/c hs dose of Zyprexa and replace with Risperdal 1 mg. Reassess in am for cross taper. 04/17--not tolerating Risperdal 1 mg due to orthostasis. Reassess for restart of Zyprexa this hs vs prn Haldol. 04/19 -Diphenhydramine discontinued over the weekend due to anticholinergic side ef fects. Continue olanzapine 10 mg daily. She has haloperidol 1 mg every 4 hours as needed which she has not yet received. -Continue sertraline 200 mg daily and mirtazapine 30 mg at bedtime. 04/20 -Patient is received several doses of haloperidol 1 mg which has been helpful, and that she is tolerating it well, will increase to 2 mg every 4 hours as needed. If this is effective, can cross taper from olanzapine to haloperidol. -Continue to encourage patient to be out of her room and active during the day, even if unable to tolerate full groups; continued assistance for ADLs. 04/21 -Discontinue olanzapine as has not been effective and due to concern for extrapyramidal symptoms. Continue haloperidol and schedule 2mg 3 times daily, with an as needed dose as well. 04/22 -The patient continues to report feeling depressed, within the context of a history of bipolar disorder. A concern today is that the patient has been receiving multiple serotonergic medications and at the same time, may be exhibiting symptoms of serotonin syndrome. Accordingly, we will be holding mirtazapine, sertraline, and zolpidem. I have disclosed this concern, explained the causes of serotonin syndrome to the patient and she indicated understanding. 04/23 holding psychiatric meds expect for clonazepam a for now given possible serotonin syndrome. headline writer considering retrial of Risperdal when appropriate given past tolerability (with possibility of titratuating dose past 1mg bid that took in past) if tolerated decently in last trial, recent trial of orthostatic concerns might be more about overall presentation then Risperdal given vitals as whole lately. also Lamictal a possible med option given aim to avoid worsening possible serotonin syndrome. pt not willing to take prior or new Meds currently and headline writer seeking to hold such trails for now as well. 04/25 -Risperidone 0.5 mg in the morning and 1 mg at bedtime has been restarted. The patient previously said that she would refused to take risperidone because it "does not help." However, clinical data indicates that the patient has in the past responded quite well to risperidone and although she may have experienced an exacerbation of her [id number] while taking risperidone, we have been able to convince her to resume risperidone at this point. In the past, she reportedly has taken risperidone 1 mg twice a day, and we have started at slightly lower than thiswith the plan to titrate as indicated. -We are continuing clonazepam 0.5 mg twice a day (9 and 1600) as well as clonazepam 1 mg at bedtime. The patient appears to be responding favorably to this. 04/26 -patient appears slightly improved; continue medication adjustments as above. Encourage her to be out of her room and participating to the extent that she is able. 04/27 -encourage patient to be up during the day to consolidate and improve sleep at night. 04/28 - maintained risperidone at current dose with consideration of titrating dose up slightly if progress being obtaining appears to be plateauing. maintained Klonopin at current dosage. 04/29 -both staff and the patient, herself, believe that she is continuing to improve. At this point, we will not increase her dose of risperidone further but we will continue to observe. We will also maintain the current Klonopin dosage 04/30 -slow improvement continues. Still unwilling to discuss intrusive thoughts of hurting others and does not feel safe leaving the hospital. 05/01 -scheduled family meeting tomorrow for discharge planning. 05/02 -meeting held with the and son for discharge planning; patient distraught and overwhelmed, wants to be well enough to go home, but does not yet feel ready. Briefly discussed ECT as a good treatment option if medications are ineffective, which was very upsetting to the patient 05/03 - Continue current medication regimen - Coordinate with son regarding previously effective antidepressant medication; consider initiating an antidepressant as mood remains low - Continue to encourage consideration of PT evaluation, mobile psych nursing, or other outpatient supports as willing 05/04 - Continue current medication regimen - pt was offered antidepressant medication (consideration for escitalopram), but was declined at this time as pt states, "my medications are working" - Continue to offer supportive services on an outpatient basis to ease brandt sition home and improve functioning in the outpatient setting, patient remains resistant - Coordinate care with and son regarding these services - MNPR discontinued as part of discharge planning process, as improvement has been observed in anxiety and functioning overall 05/05 - Continue medication regimen - Referral for case management sent today - Coordinated discharge planning with , who is able to pick patient up tomorrow morning if discharge remains appropriate (2) Generalized anxiety disorder: 03/31 -patient extremely anxious, with negative, ruminative thoughts, and severe restlessness. -Increase sertraline as above. -At home dose of hydroxyzine 25 mg at bedtime, and offer 25 mg every 4 hours as needed anxiety. -Continue clonazepam 0.5 mg every morning, and add 0.5 mg dose twice daily as needed if hydroxyzine an effective, but monitor for unsteadiness and oversedation. 04/01/19 -As noted above, some of the patient's anxious distress may be secondary to eps side effects (akathisia). -On examination, the patient does have cogwheel rigidity. However, she tells me that she feels that she is somewhat less anxious and notes that the medications for her anxiety "may be helping." 04/02 -Patient remains highly anxious. Considered alternative options for bedtime hydroxyzine to reduce anticholinergic burden. Elected to trial the Remeron at 15 mg p.o. nightly which may help off label for feelings of restlessness. Hopefully this will also help to reduce her anxiety and provide some appetite stimulation but will need to watch for mood cycling in combination with the sertraline. If she does well with this agent, could consider using it as antidepressant monotherapy (tapering her off the Zoloft) 04/04 - Continue current medication regimen - consider increase or mirtazapine and possible taper of sertraline as outlined above; wanting to ensure tolerance prior to switching to mirtazapine as monotherapy 04/05 - Titrating mirtazapine to 30mg this evening; will continue sertraline at 100mg until efficacy of mirtazapine can be determined - Continue remainder of medication regimen unchanged 04/08 -As above, we are increasing her dose of sertraline to a dose of 125 mg daily to treat anxiety and depression. We will continue olanzapine to serve as a mood stabilizer given the patient's diagnosis of bipolar disorder. -Also as noted above, we have added diphenhydramine 12.5 mg twice a day for extraparametal side effects, persistent) EPS, and we will discontinue Artane. Hopefully, diphenhydramine will help not only with extraparametal side effects but, also, with the patient's generalized anxiety. -The patient's standing dose of clonazepam has been increased from 0.5 mg in the morning to 0.5 mg 3 times a day. She will also have available to her as needed clonazepam. Material risks and anticipated benefits of clonazepam have been reviewed with the patient, and it has been explained that this is not expected to be a long-term intervention but, instead, is being used to help bring the patient's anxiety under better control so that she can more fruitful he participate in the treatment on the. 04/09 - Continue current medication regimen; consider need for further titration of sertraline to 150mg daily - Patient appearing less restless/anxious, though she describes her symptoms to be unchanged 04/10 - Continue current medication regimen; consider titration of sertraline as above - pt limited in willingness to discuss multiple changes today - Patient's appearance is improving, though she reports limited changes in her condition 04/11 - Titrate sertraline to 150mg daily. Pt reporting daytime sedation, can consider possible reduction of prns at some point, when she begins to be more effective - Pt reporting mild improvements in anxiety 04/12 - Continue sertraline 150mg daily - In attempt to reduce sedation, but maintain progress with reducing anxiety/restlessness - will titrate diphenhydramine to 25mg daily (this will also allow for medication in capsule form, which patient prefers). Will discontinue scheduled TID clonazepam, but leave available prn dosing should patient require it during the day for anxiety or other concerns. - Staff also reporting apneic episodes observed at night; reducing reliance on benzodiazepines will be ideal as will reduce additional risk for respiratory concerns - Continue to encourage development of healthy and effective coping strategies 04/13 - Titrating sertraline to 175mg daily - Continue remainder of medication regimen as above - Pt has been more open about intrusive homicidal thoughts, distressing, with no intent to act. Pt is very disturbed by these thoughts - Patient unwilling for additional medication adjustments today; however, could consider titration of olanzapine. Patient did experience significant EPS when she received a 15 mg dose early in her admission. Consider split dosing - 5mg/10mg - Also consider retrial for risperidone (beneficial on last admission), possibly as prn and then scheduled in place of olanzapine if effective. Can also consider trial of another atypical antipsychotic which may better target concerns. 04/14 - Continue medication adjustments as above - olanzapine 5mg qAM and 10mg qHS 04/15 -The patient's anxiety symptoms seem to be a combination of anxious distress associated with ego-dystonic intrusive thoughts, as well as restlessness associated with extrapyramidal side effects from her medications. -She has tolerated an increase in her dose of diphenhydramine from 12.5 mg to 25 mg without excess sedation, and she tells us that she much prefers this because she did not like the taste of liquid diphenhydramine. -We are beginning clonazepam 0.5 mg up to 3 times a day as needed for anxiety. The patient has a past history of favorable response to this medication. Material risks, including, but not limited to excess sedation, increased risk of accident, increased risk for falls, physical habituation with complicated withdrawal that may may be fatal and can include seizures, and cognitive impairment. The patient indicates understanding and notes that she has had no problems taking the clonazepam in the past. 05/04 - Recommended addition of escitalopram to target ongoing depressive symptoms and anxiety - with long-term goal to taper off clonazepam which is not ideal for the long-term - Pt declines initiation at this time, feeling her current regimen is effective (3) Orthostatic dizziness: started 04/17, repeat labs and monitor sodium (133). 04/18 - BMP notable for hyponatremia with sodium of 132. 04/19 -dizziness resolved, normotensive. Sodium 133. Encourage fluid intake. 04/22 - The patient is on bedrest and is being helped to the bathroom by staff. 04/29 -resolved. (4) Sweating abnormality: 04/21 -patient has had multiple episodes over the past few days of excessive sweating, found to be drenched in sweat and tremulous. She has been drinking excessively at times, but other times with poor oral intake. Her sodium has been slightly low. Today she is hypertensive and tachycardic. Will consult the hospitalist service for assistance and to rule out any medical contributors to her current state; reviewed with Dr. Nielsen, and appreciate any recomm endations.. 04/22 -It is possible that the symptoms (diaphoresis and hypertension close disease may be secondary to serotonin syndrome. We have obtained a consult from a hospitalist, but the exact etiology has not been determined. 04/25 -This appears to have resolved. It may have been a function of serotonin syndrome, or it may have represented panic episodes. 04/29 -Resolved. (5) Serotonin syndrome: 04/22/19 -Serotonin syndrome is suspected. The patient does present with a number of symptoms that are suggestive of this. These include worsening confusion, muscle stiffness, recent onset diarrhea, diaphoresis, and pupillary dilatation. -We will treat symptomatically with benzodiazepines (Klonopin). She is also been given an order for Periactin 12 mg and we will continue this medication as indicated and tolerated. The diarrhea may be secondary to Periactin. -Serotonergic agents are being held pending further evaluation. 04/23 holding meds that have serotonin impact for now and monitoring vitals and for s/s of serotonin syndrome. with potential for more periactin doses if seems needed. 04/24 improving will attempt retrial of one med - risperdal given past response to it, monitoring closely for s/s serotonin syndrome 04/25 -Muscle stiffness, diaphoresis, diarrhea, extreme anxiety/confusion, and pupillary dilatation all appear to have resolved. Inventory Assets Strengths: Supportive . Cooperative with treatment. Motivated to recovery. Insight into her need for treatment. Intelligent. Needs: [place] from anxiety, mood alterations, and intrusive alien thoughts. Risk Factors Assessment Male: No : Yes Do You Have Access To A Gun?: Yes ( has guns that are locked) Health Problems: Yes Mental Health Diagnoses: Yes Substance Use Disorders: No Previous Attempt: No Family History of Suicide: No Previous Psychiatric Hospitalization: Yes Hopelessness: Yes Smoker: No Protective Factors Assessment : Yes Responsible for Young Children: No Employed: No Supportive Family: Yes Good Rapport with Provider: Yes Interval History Identifying Information VALENTINA CLARK is a 74-year-old F who currently lives in [place] with her , has a history of bipolar disorder type I and generalized anxiety disorder, and was admitted on 03/30/19 19:35 on a 201 voluntary commitment for severe anxiety and inability to function. Chief Complaint "Do you have good new for me?" Review of Systems Notes Constitutional: reports improved sleep last evening Cardiovascular: denied Respiratory: denied Gastrointestinal: denied Neurological: denied Psychiatric: denies symptoms other than stated above Total of at least 10 systems reviewed, pertinent positives as above and in HPI. Sleep Information Total Hours of Sleep: 8.25 Sleep Comments: snores softly Meal Information Percent Meal Consumed - Breakfast: 100 Percent Meal Consumed - Lunch: 100 Percent Meal Consumed - Dinner: 50 Nutrition Comment: Breakfast a few bites of eggs and 100% nutrition drink Subjective Subjective Patient was seen & assessed and interval progress reviewed with nursing and social work. Staff reports that the patient remains interested in discharge soon. After further discussion, the patient was agreeable to a mattress spring encaser - under the condition that they meet outside of her home. Pt's was contacted, and reports feeling comfortable with discharge when the patient is ready. Pt was seen today to assess progress since admission. Pt states she is "fine" today. She admits to sleeping well again last evening, and states she is hopeful her sleep will continue to improve at home. Pt reports feeling that her mood is "getting better" today, and that she is feeling more ready for discharge soon. She states, "is it normal, to feel anxious too." Pt was open and honest in discussing her anticipatory anxiety regarding discharge, with primary concerns of "it's been so long since I've been home." She continues to feel that her is her primary support and verbalizes that she feels she can seek help from him during the transition. Pt remains agreeable to the idea of a mattress spring encaser, but states, "we're private people, so we'll meet them at the office." We reviewed ways in which this additional support can be helpful for her. Pt denies other concerns today, and expresses desire for discharge tomorrow morning/afternoon. She states her is excited to have her home as well. Physical Exam Psychiatric Orientation: alert, oriented x 3 and cooperative Apperance: appropriately dressed, appropriately groomed (not malodorous, showering daily except hair, which remains in gera) and appeared stated age Eye Contact: good eye contact Motor Behavior: steady gait and station and no abnormal motor movements Speech: normal rate/rhythm/volume of speech Affect: + anxious affect (mildly) and + constricted affect (though has been mildly more reactive, smiling appropriately) Affect brightens when discussing discharge or her Mood: + anxious mood ("is it normal, to feel anxious?"); no depressed mood ("Better") Thought Process: goal directed thought process and clear/coherent thought process Thought Content: reality based without delusions; no hopelessness Suicidal Thoughts: denies suicidal thoughts and denies suicidal intent Homicidal Thoughts: denies homicidal thoughts Hallucinations: no auditory hallucinations and no visual hallucinations Cognition: remote memory grossly intact, attention grossly intact and language grossly intact Estimated Intelligence: consistent with education level Insight: + fair insight Judgement: + fair judgement Vital Signs (Past 24 Hours) Last Vital Signs Temp 36.7 C 05/05/19 06:47 Pulse 96 H 05/05/19 06:48 Resp 18 05/05/19 06:47 BP 129/85 05/05/19 06:48 Pulse Ox 93 04/25/19 07:48 Results & Data Current Inpatient Medications Current Inpatient Medications: Current Inpatient Medications Acetaminophen (Tylenol) 650 mg PO Q4H PRN PRN Reason: Mild Pain Stop: 05/29/19 17:45 Last Admin: 05/02/19 11:49 Dose: 650 mg Documented by: Al Hydrox/Mg Hydrox/Simethicone (Maalox) 30 ml PO Q6H PRN PRN Reason: Indigestion Stop: 05/29/19 17:47 Bismuth Subsalicylate (Pepto-Bismol) 15 ml PO PRN PRN PRN Reason: Diarrhea Stop: 05/29/19 17:49 Clonazepam (Klonopin) 0.5 mg PO TID PRN PRN Reason: Anxiety Stop: 05/15/19 15:26 Last Admin: 04/25/19 02:46 Dose: 0.5 mg Documented by: Clonazepam (Klonopin) 1 mg PO HS [facility] Stop: 05/25/19 21:59 Last Admin: 05/04/19 20:34 Dose: 1 mg Documented by: Clonazepam (Klonopin) 0.5 mg PO BID@0900,1600 [facility] Stop: 05/25/19 15:59 Last Admin: 05/05/19 07:22 Dose: 0.5 mg Documented by: Clonidine HCl (Catapres) 0.1 mg PO Q4H PRN PRN Reason: Hypertension Stop: 05/11/19 09:16 Last Admin: 04/15/19 06:56 Dose: 0.1 mg Documented by: Haloperidol (Haldol) 2 mg PO Q4 PRN PRN Reason: Anxiety/Agitation Stop: 05/17/19 14:16 Last Admin: 04/21/19 07:32 Dose: 2 mg Documented by: Lisinopril (Zestril) 15 mg PO BID [facility] Stop: 05/11/19 08:59 Last Admin: 05/05/19 07:22 Dose: 15 mg Documented by: Magnesium Hydroxide (Milk Of Magnesia) 30 ml PO DAILY PRN PRN Reason: Constipation Stop: 05/29/19 17:56 Risperidone (Risperdal) 1 mg PO [facility] Stop: 05/24/19 21:59 Last Admin: 05/04/19 20:34 Dose: 1 mg Documented by: [facility] ([facility]is[facility]dal) [facility] Stop: 05/25/19 08:59 Last Admin: 05/05/19 07:22 Dose: 0.5 mg Documented by: Sodium Chloride ([place] Nasal) 2 sprays NA PRN PRN PRN Reason: Nasal Congestion Stop: 05/29/19 17:53 Mental Health & Subst Abuse Tx Psychiatrist Name of Psychiatrist: [facility] Carey Astudillo Psychiatrist's Date of Appointment with Psychiatrist: 05/09/19 Time of Appointment with Psychiatrist: 2:00 p.m. Psychiatric Appointment Comment: [address] [facility] [place] [address] Therapist Name of Therapist: BENJAMIN Carey Petersen Therapist's Date of Therapist Appointment: 05/17/19 Time of Therapist Appointment: 1:30 p.m. Therapy Appointment Comment: [address] [facility] [place] [address] Registration Scheduling Specialist Name of Registration Scheduling Specialist: [employer] Phone Number for Registration Scheduling Specialist: [phone] Time of Appointment with Registration Scheduling Specialist: Will call you to schedule an intake Case Management Appointment Comment: [facility], [address], [place] Post Discharge Appointments Primary Care Physician Name Of Family Doctor: [facility] - Dr. Ayala [facility] Date of Appointment with PCP: 05/10/19 Time of Appointment with PCP: 10:30 a.m. Provider Appointment Comment: [address], [address], [place] [address] Contact Information Discharge Discharge Address: [address] [place] [id number] CPT Code CPT Code 08381
[2019-05-05] MEDS: clonazePAM 1 MG TAB PO SCH (20:56)
[2019-05-05] MEDS: risperiDONE 1 MG TABLET PO SCH (20:57)
[2019-05-06] MEDS: risperiDONE 0.5 MG TABLET PO SCH (07:22)
[2019-05-06] MEDS: LISINOPRIL 10 MG TAB PO SCH (07:23)
[2019-05-06] MEDS: clonazePAM 0.5 MG TAB PO SCH (07:25)
--- NOTE | 2019-05-06 11:49 | Discharge Summary ---
Date of Service May 06, 2019 History of Present Illness Begging for help,The patient is known to us from a weeklong hospitalization on our unit in September 2018 for freedom; she was discharged on risperidone 1 mg twice daily, with outpatient follow-up at [facility]. She was seen in the emergency room 03/22/2019 for anxiety, decreased appetite, and insomnia, and wanted inpatient treatment here, but no beds were available and she did not want to go to a different facility, so was discharged home. She return to the ER 03/30/2019 on referral from her therapist for worsening symptoms of anxiety, depression, decreased p.o. intake, and inability to function. She reported poor energy and concentration, inability to sleep, loss of interest, decreased appetite, and her reported she had not been eating or drinking, and he had difficulty getting her out of bed. She was extremely anxious, repeating the same things over and over, and said that she was "worried to ." Although she denied suicidal thoughts, she said that she was fearful and having "bad thoughts" and feelings of dread. She received 1 mg of lorazepam in the ER. She was hyponatremic with a sodium of 129, and received 1 L of IV fluid, with repeat sodium 133. Potassium was initially 3.6, but on recheck was 3.1. She was unable to confirm her outpatient medications, stating her manage them. Per her admission medication reconciliation, she is prescribed olanzapine 15 mg every afternoon, sertraline 50 mg every morning, clonazepam 0.5 mg every morning, lisinopril 10 mg daily, and hydralazine 25 mg every afternoon. Per her external medication history, she is prescribed hydroxyzine 25 mg nightly, and I do see no mention of hydralazine. On my assessment, the patient states she's "not able to sit real long," and is here because "of the negative thoughts." She is unable to give any examples, says they're "about different things, if you say the ryan is blue, I'll probably turn around and say it's black." Mood is "just anxious, overwhelming." She endorses excessive worry about "everyday things," restlessness and inability to sit still, and feeling distraught. She repeatedly asks "can we be finished?" She has not been able to function, do her ADLs, eat, sleep, do housework. She's lost at least 10 lbs due to "nervous stomach, not eating." This has been going on for the past several weeks. She endorses feeling down, but isn't sure why, "it's all mixed up." She says she got "stressed because I had to get a Real ID, that really put me over the edge." She thinks this was in February, had to go to the courthouse to get a marriage license, and was overwhelmed by having to find the documents needed. She denies panic, SI, HI, AVH and paranoia. She thinks Dr. Astudillo just changed her medications, but she doesn't know which ones and doesn't know the names of her medications. Physical Exam Psychiatric Orientation: alert and oriented x 3 Apperance: appropriately dressed, appropriately groomed and appeared stated age Eye Contact: good eye contact Motor Behavior: steady gait and station and no abnormal motor movements Speech: normal rate/rhythm/volume of speech Affect: euthymic affect "Back to normal." Thought Process: linear/logical thought process Thought Content: reality based without delusions Suicidal Thoughts: denies suicidal thoughts Homicidal Thoughts: denies homicidal thoughts Hallucinations: no auditory hallucinations Cognition: recent memory grossly intact, remote memory grossly intact and attention grossly intact Estimated Intelligence: + above average estimated intelligence Insight: + fair insight Judgement: good judgement Vital Signs (Past 24 Hours) Last Vital Signs Temp 36.5 C 05/06/19 10:22 Pulse 92 H 05/06/19 10:22 Resp 18 05/06/19 10:22 BP 138/83 05/06/19 10:22 Pulse Ox 93 05/06/19 10:22 Principal Diagnosis Bipolar disorder. Psychiatric Data During the course of hospitalization the patient was offered various modalities of psychiatric treatment and education. These included individual, group, activity, and family interventions. In addition, she was offered chemotherapy. Initially, they had been some uncertainty regarding the patient's outpatient dose of olanzapine, and various reports indicated that it had been 10 mg at bedtime and mother reports indicated 15 mg at bedtime. She was initially placed on olanzapine 15 mg at bedtime, but the next day presented with certain's extraparametal symptoms and the dose was decreased to 10 mg at bedtime. She was also provided the anticholinergic medication Artane. She was given the antidepressant medication sertraline, and the dose was titrated upwards, first 200 mg, then 250 mg, then to 175 mg, and finally to 200 mg daily. The patient frequently complained of severe anxiety and restlessness, combined with depressed mood. On a number of occasions the patient was found to have cogwheel rigidity and it was believed that the patient was experiencing akathisia secondary to her psychiatric medications. Within that context, she was first treated with Artane, but had difficulty tolerating Artane and Artane was discontinued in favor of diphenhydramine 12.5 mg twice a day (both for EPS and for anxiety). Initially, the patient reported that she felt the diphenhydramine was helping with her restlessness and with her anxiety. However, she strongly dislikes the taste of the liquid diphenhydramine preparation that was necessary for her to receive the dose of 12.5 mg and she agreed to an increase in dose of diphenhydramine to a dose of 25 mg twice a day (25 mg dosages could be given in pill form). Initially, this appeared to resolve the extraparametal side effects and did not seem to result in excess sedation. Mirtazapine was prescribed both for depression and because of persistent insomnia, and the dose was eventually titrated to 30 mg at bedtime. She also received Ambien for sleep, as needed. A focus of treatment for the patient was her persistent ego-dystonic intrusive thoughts that included violent thoughts of physically mutilating her , engaging in certain sexual acts that she believed to be a poor amount, and a series of other distressing thoughts that she was often reluctant to even talk about them. These thoughts were not accompanied with any plan or intent, and were not considered to represent any risk of violent or otherwise dyscontroled behavior. Instead, they were explained to her as being part of her her obsessive tendencies and her difficulty ignoring or dismissing these thoughts. The supportive interventions seem to have made little difference in the patient's related anxious distress. The patient was offered and seemed to respond favorably to clonazepam on an as-needed basis for anxiety, but it was hoped that we would be able to manage her anxiety without the addition of the benzodiazepine as a standing dose medication. The patient is dose of olanzapine had been increased from 10 mg at bedtime to a dose of 5 mg in the morning and, but the patient seems not to be responding in any way to olanzapine and we were reluctant to increase the dose given her extraparametal complaints. She had, in the past, responded favorably to risperidone, but told us that she would declined to take risperidone because it had "stopped working" and she did not expect that it would be of any benefit to her. Haldol was used and low dosages (2 mg) but seem to worsen her anxiety and restlessness. Eventually, the patient agreed to a reintroduction of risperidone, and this medication was titrated to risperidone 0.5 mg in the morning and 1 mg at bedtime. The patient became progressively more withdrawn, generally stopped participating in groups, and had several occasions of diaphoresis, loose stools, myalgias, and pupillary dilatation. Accordingly, it was suspected that she may have been suffering from serotonin syndrome and all serotonergic medications were discontinued. Specifically, sertraline, mirtazapine, and and Ambien were all discontinued. Diphenhydramine had also been discontinued because it was feared that the patient was possibly experiencing anticholinergic side effects, although this did not explain the episodes of diaphoresis. Once the patient's medication dosages had been simplified to risperidone 0.5 mg in the morning and 1 mg at bedtime; and clonazepam 0.5 mg twice a day and 1 mg at bedtime (standing dose) the patient gradually began to show signs of improvement, both in terms of her mood and her levels of anxiety. Symptoms previously noted and suspected to possibly be related to a serotonin syndrome resolved fairly quickly. The patient began to participate, somewhat hesitantly, and group and activity therapies. He also began to report a diminution in the intrusive ego-dystonic thoughts that she had been having, and reported that although she was continuing to have them periodically they were manageable and she was better able to ignore them. The patient reported that her anxiety levels were dismissing, and in the last week of her hospitalization she began to tell us that she had "just made up [her] mind to get better," and she did. By discharge, the patient and her agree that she had returned to baseline and felt ready to continue treatment on an outpatient basis. Day of Discharge Assessment On the day of discharge the patient was found to be appropriately dressed and groomed. She was pleasant and cooperative, and able to joke appropriately with the examining physician. The patient's speech was delivered at a normal rate and rhythm and was spontaneous. She described her mood as "back to normal" and "pretty good." Specifically, she reported that her anxiety had improved significantly and that she no longer felt depressed. The patient's thought processes were found to include tight associations and were linear and logical. There was no delusional material and the patient's thought content. She acknowledges that she continues to have certain intrusive ego-dystonic thoughts, but describes them as "not nearly as bad" and "manageable." The patient reports that she is not experiencing any perceptual disturbances and notes that she has never experienced hallucinations. The patient also reports that she is having no thoughts of suicide or homicide. The patient's intelligence is assessed as being above average. Her insight and judgment are both adequate. There is no evidence of cogwheel rigidity or any complaints of extraparametal symptoms. Transition of Care Transition Of Care Record: was reviewed with the patient Advance Directives Advance Directives Information Provided: No Advance Directives: No Mental Health Advance Directive: No Advance Directives on File: No Living Will: No Power of Enroller: No Advance Directives Reason:: Declines as Mental Health Visit. Risk Factors Assessment Bipolar disorder, significant anxious distress, illness that is somewhat resistant to treatment. Male: No : Yes Do You Have Access To A Gun?: Yes ( has guns that are locked) Health Problems: Yes Mental Health Diagnoses: Yes Substance Use Disorders: No Previous Attempt: No Family History of Suicide: No Previous Psychiatric Hospitalization: Yes Hopelessness: Yes Smoker: No Protective Factors Assessment : Yes Responsible for Young Children: No Employed: No Supportive Family: Yes Good Rapport with Provider: Yes Tobacco Cessation at Discharge Tobacco Cessation Medication Prescribed at Discharge: Not Applicable/Non-Smoker Antipsychotic Medications The patient is prescribed risperidone as an effective mood stabilizer. She has a history of favorable response in the past and currently Total Time Total Time Spent: Greater Than 30 Minutes Total Time Includes: Examination of the patient, Discharge Planning and Communication with other providers Discharge Data Consultations 04/21/19 09:02 Consult Physician Routine Lab Results 03/30/19 03/30/19 03/30/19 13:50 13:50 14:04 WBC 11.50 H RBC 4.16 L Hgb 13.2 Hct 37.7 MCV 90.6 MCH 31.7 MCHC 35.0 RDW Std Deviation 42.9 RDW Coeff of Gerson 12.9 Plt Count 330 MPV 9.6 Immature Gran % (Auto) 0.8 Neut % (Auto) 84.1 Lymph % (Auto) 7.8 [place] % (Auto) 6.6 Eos % (Auto) 0.4 Baso % (Auto) 0.3 Immature Gran # (Auto) 0.09 H Neut # (Auto) 9.66 H Lymph # (Auto) 0.90 L [place] # (Auto) 0.76 H Eos # (Auto) 0.05 Baso # (Auto) 0.04 Sodium Potassium Chloride Carbon Dioxide Anion Gap BUN Creatinine Est Cr Clr Drug Dosing Est GFR ( Amer) Est GFR (Non-Af Amer) BUN/Creatinine Ratio Glucose POC Glucose Calcium Phosphorus Total Bilirubin AST ALT Alkaline Phosphatase Total Creatine Kinase Total Protein Albumin Globulin Albumin/Globulin Ratio TSH Specimen Hemolysis Urine Color Dark Yellow Urine Appearance Cloudy A Urine pH 5.5 Ur Specific Amma 1.020 Urine Protein 1+ H Urine Glucose (UA) Negative Urine Ketones Trace H Urine Blood 1+ H Urine Nitrite Negative Urine Bilirubin Negative Urine Urobilinogen Negative Ur Leukocyte Esterase Trace H Urine WBC (Auto) 5-10 H Urine RBC (Auto) 0-4 U Hyaline Cast (Auto) 0 U Epithel Cells (Auto) >30 H Urine Bacteria (Auto) Negative Ur Renal Epithelial Cell Not Reportable Urine Mucus Present A Salicylates Urine Opiates Screen Neg Ur Methadone, Qual Neg Acetaminophen Urine Barbiturates Neg Ur Phencyclidine (PCP) Neg U Amphetamin/Meth Scrn Neg MDMA (Ecstasy) Screen Neg U Benzodiazepines Scrn Neg Ur Cocaine Metabolite Neg U Marijuana (THC) Screen Neg Ethyl Alcohol mg/dL 03/30/19 03/30/19 03/30/19 14:04 14:04 14:04 WBC RBC Hgb Hct MCV MCH MCHC RDW Std Deviation RDW Coeff of Gerson Plt Count MPV Immature Gran % (Auto) Neut % (Auto) Lymph % (Auto) [place] % (Auto) Eos % (Auto) Baso % (Auto) Immature Gran # (Auto) Neut # (Auto) Lymph # (Auto) [place] # (Auto) Eos # (Auto) Baso # (Auto) Sodium 129 L Potassium 3.6 Chloride 91 L Carbon Dioxide 28 Anion Gap 10.0 BUN 13 Creatinine 0.79 Est Cr Clr Drug Dosing 53.5 Est GFR ( Amer) 87.3 Est GFR (Non-Af Amer) 75.3 BUN/Creatinine Ratio 16.9 Glucose 124 H POC Glucose Calcium 8.8 Phosphorus Total Bilirubin 0.6 AST 21 ALT 26 Alkaline Phosphatase 108 Total Creatine Kinase Total Protein 8.0 Albumin 3.5 Globulin 4.5 H Albumin/Globulin Ratio 0.8 L TSH 1.790 Specimen Hemolysis Urine Color Urine Appearance Urine pH Ur Specific Amma Urine Protein Urine Glucose (UA) Urine Ketones Urine Blood Urine Nitrite Urine Bilirubin Urine Urobilinogen Ur Leukocyte Esterase Urine WBC (Auto) Urine RBC (Auto) U Hyaline Cast (Auto) U Epithel Cells (Auto) Urine Bacteria (Auto) Ur Renal Epithelial Cell Urine Mucus Salicylates < 1.7 L Urine Opiates Screen Ur Methadone, Qual Acetaminophen < 2 L Urine Barbiturates Ur Phencyclidine (PCP) U Amphetamin/Meth Scrn MDMA (Ecstasy) Screen U Benzodiazepines Scrn Ur Cocaine Metabolite U Marijuana (THC) Screen Ethyl Alcohol mg/dL < 3.0 03/30/19 04/01/19 04/04/19 17:06 08:11 07:10 WBC RBC Hgb Hct MCV MCH MCHC RDW Std Deviation RDW Coeff of Gerson Plt Count MPV Immature Gran % (Auto) Neut % (Auto) Lymph % (Auto) [place] % (Auto) Eos % (Auto) Baso % (Auto) Immature Gran # (Auto) Neut # (Auto) Lymph # (Auto) [place] # (Auto) Eos # (Auto) Baso # (Auto) Sodium 133 L 138 137 Potassium 3.1 L 3.1 L 3.9 Chloride 97 L 102 101 Carbon Dioxide 27 29 29 Anion Gap 9.0 7.0 7.0 BUN 11 9 15 Creatinine 0.49 L D 0.59 L 0.64 Est Cr Clr Drug Dosing 86.3 71.7 66.1 Est GFR ( Amer) 113.6 106.9 104.1 Est GFR (Non-Af Amer) 98.0 92.2 89.8 BUN/Creatinine Ratio 21.4 H 14.8 22.8 H Glucose 97 115 H 104 H POC Glucose Calcium 7.7 L 8.8 8.7 Phosphorus Total Bilirubin AST ALT Alkaline Phosphatase Total Creatine Kinase Total Protein Albumin Globulin Albumin/Globulin Ratio TSH Specimen Hemolysis Urine Color Urine Appearance Urine pH Ur Specific Amma Urine Protein Urine Glucose (UA) Urine Ketones Urine Blood Urine Nitrite Urine Bilirubin Urine Urobilinogen Ur Leukocyte Esterase Urine WBC (Auto) Urine RBC (Auto) U Hyaline Cast (Auto) U Epithel Cells (Auto) Urine Bacteria (Auto) Ur Renal Epithelial Cell Urine Mucus Salicylates Urine Opiates Screen Ur Methadone, Qual Acetaminophen Urine Barbiturates Ur Phencyclidine (PCP) U Amphetamin/Meth Scrn MDMA (Ecstasy) Screen U Benzodiazepines Scrn Ur Cocaine Metabolite U Marijuana (THC) Screen Ethyl Alcohol mg/dL 04/17/19 04/17/19 04/17/19 20:09 20:29 20:29 WBC 6.48 RBC 3.71 L Hgb 11.8 L Hct 33.8 L MCV 91.1 MCH 31.8 MCHC 34.9 RDW Std Deviation 44.2 RDW Coeff of Gerson 13.3 Plt Count 291 MPV 9.1 Immature Gran % (Auto) 0.5 Neut % (Auto) 63.4 Lymph % (Auto) 22.8 [place] % (Auto) 9.9 Eos % (Auto) 2.6 Baso % (Auto) 0.8 Immature Gran # (Auto) 0.03 H Neut # (Auto) 4.11 Lymph # (Auto) 1.48 [place] # (Auto) 0.64 H Eos # (Auto) 0.17 Baso # (Auto) 0.05 Sodium 133 L Potassium 4.2 Chloride 99 Carbon Dioxide 28 Anion Gap 6.0 BUN 20 H Creatinine 0.63 Est Cr Clr Drug Dosing 67.1 Est GFR ( Amer) 104.6 Est GFR (Non-Af Amer) 90.2 BUN/Creatinine Ratio 32.2 H Glucose 105 H POC Glucose 108 H Calcium 8.9 Phosphorus 4.0 Total Bilirubin AST ALT Alkaline Phosphatase Total Creatine Kinase 32 Total Protein Albumin 3.1 L Globulin Albumin/Globulin Ratio TSH Specimen Hemolysis Urine Color Urine Appearance Urine pH Ur Specific Amma Urine Protein Urine Glucose (UA) Urine Ketones Urine Blood Urine Nitrite Urine Bilirubin Urine Urobilinogen Ur Leukocyte Esterase Urine WBC (Auto) Urine RBC (Auto) U Hyaline Cast (Auto) U Epithel Cells (Auto) Urine Bacteria (Auto) Ur Renal Epithelial Cell Urine Mucus Salicylates Urine Opiates Screen Ur Methadone, Qual Acetaminophen Urine Barbiturates Ur Phencyclidine (PCP) U Amphetamin/Meth Scrn MDMA (Ecstasy) Screen U Benzodiazepines Scrn Ur Cocaine Metabolite U Marijuana (THC) Screen Ethyl Alcohol mg/dL 04/17/19 04/17/19 04/18/19 20:29 Unknown 08:02 WBC 5.14 RBC 3.78 L Hgb 11.7 L Hct 34.1 L MCV 90.2 MCH 31.0 MCHC 34.3 RDW Std Deviation 43.9 RDW Coeff of Gerson 13.4 Plt Count 254 MPV 8.9 Immature Gran % (Auto) 0.4 Neut % (Auto) 70.3 Lymph % (Auto) 18.1 [place] % (Auto) 8.8 Eos % (Auto) 1.6 Baso % (Auto) 0.8 Immature Gran # (Auto) 0.02 Neut # (Auto) 3.62 Lymph # (Auto) 0.93 L [place] # (Auto) 0.45 Eos # (Auto) 0.08 Baso # (Auto) 0.04 Sodium 133 L Potassium 4.3 Chloride 99 Carbon Dioxide 28 Anion Gap 7.0 BUN Creatinine Est Cr Clr Drug Dosing Est GFR ( Amer) Est GFR (Non-Af Amer) BUN/Creatinine Ratio Glucose POC Glucose Calcium Phosphorus Total Bilirubin AST ALT Alkaline Phosphatase Total Creatine Kinase Total Protein Albumin Globulin Albumin/Globulin Ratio TSH Specimen Hemolysis Urine Color Yellow Urine Appearance Clear Urine pH 6.0 Ur Specific Amma 1.016 Urine Protein Negative Urine Glucose (UA) Negative Urine Ketones Negative Urine Blood Negative Urine Nitrite Negative Urine Bilirubin Negative Urine Urobilinogen Negative Ur Leukocyte Esterase 1+ H Urine WBC (Auto) 1-5 Urine RBC (Auto) 0-4 U Hyaline Cast (Auto) 0 U Epithel Cells (Auto) 10-20 H Urine Bacteria (Auto) Negative Ur Renal Epithelial Cell Urine Mucus Salicylates Urine Opiates Screen Ur Methadone, Qual Acetaminophen Urine Barbiturates Ur Phencyclidine (PCP) U Amphetamin/Meth Scrn MDMA (Ecstasy) Screen U Benzodiazepines Scrn Ur Cocaine Metabolite U Marijuana (THC) Screen Ethyl Alcohol mg/dL 04/18/19 04/19/19 08:02 07:59 WBC RBC Hgb Hct MCV MCH MCHC RDW Std Deviation RDW Coeff of Gerson Plt Count MPV Immature Gran % (Auto) Neut % (Auto) Lymph % (Auto) [place] % (Auto) Eos % (Auto) Baso % (Auto) Immature Gran # (Auto) Neut # (Auto) Lymph # (Auto) [place] # (Auto) Eos # (Auto) Baso # (Auto) Sodium 132 L 133 L Potassium 3.9 4.0 Chloride 98 98 Carbon Dioxide 27 30 Anion Gap 7.0 5.0 BUN 14 13 Creatinine 0.53 L 0.52 L Est Cr Clr Drug Dosing 79.8 81.3 Est GFR ( Amer) 110.7 111.4 Est GFR (Non-Af Amer) 95.5 96.1 BUN/Creatinine Ratio 26.5 H 25.6 H Glucose 108 H 102 H POC Glucose Calcium 9.0 8.9 Phosphorus 3.3 3.3 Total Bilirubin AST ALT Alkaline Phosphatase Total Creatine Kinase Total Protein Albumin 3.2 L 3.2 L Globulin Albumin/Globulin Ratio TSH Specimen Hemolysis Urine Color Urine Appearance Urine pH Ur Specific Amma Urine Protein Urine Glucose (UA) Urine Ketones Urine Blood Urine Nitrite Urine Bilirubin Urine Urobilinogen Ur Leukocyte Esterase Urine WBC (Auto) Urine RBC (Auto) U Hyaline Cast (Auto) U Epithel Cells (Auto) Urine Bacteria (Auto) Ur Renal Epithelial Cell Urine Mucus Salicylates Urine Opiates Screen Ur Methadone, Qual Acetaminophen Urine Barbiturates Ur Phencyclidine (PCP) U Amphetamin/Meth Scrn MDMA (Ecstasy) Screen U Benzodiazepines Scrn Ur Cocaine Metabolite U Marijuana (THC) Screen Ethyl Alcohol mg/dL Hospital Course (1) Bipolar 1 disorder: (1) Bipolar 1 disorder: 03/31 -current episode depressed with severe anxiety. -Clarify home med list, as there are some discrepancies (external medication history shows that she filled #30 olanzapine 10 mg tablets and hydroxyzine 25 mg tablets on 03/18/2019, but admission medication reconciliation indicates olanzapine 15 mg every afternoon and hydralazine 25 mg every afternoon). Nursing staff to call her and clarify this: Patient is not prescribed h ydralazine, will remove medication. She did receive a dose last night, and blood pressure this morning was elevated 163/89, but on repeat 124/71. -Increase sertraline to 100 mg daily to target mood and anxiety, and watch for activation/mood stabilization. -It is unclear if her home dose of olanzapine is 10 or 15 mg; she received 15 mg last night, and I am concerned for EPS given her cogwheeling on exam and severe restlessness. Order benztropine 0.5 mg as needed, and reduce olanzapine to 10 milligrams at bedtime. Per she was only on 10mg olanzapine at home. May need to reduce dose further or switch to another antipsychotic if EPS does not improve. -Fasting lipid profile and glucose performed on 09/30/2018 for monitoring on an atypical antipsychotic, and were within normal limits. 04/01 -Contributing to the patient's severe anxiety may be akathisia associated with olanzapine and, possibly, sertraline. I have advised the patient accordingly, and she accepts my recommendation for a standing dose of Artane (trihexyphenidyl) -Patient otherwise indicates that she feels that she has been tolerating olanzapine well, and reports that she feels this medication has been helpful to her. -The patient's dose of sertraline has been increased to 100 mg daily 04/02 -Patient more unsteady today. Will hold any further doses of diphenhydramine for now. She does not have any cogwheeling; once she is able to relax the paratonia disappears -Patient now on moderate dose of SSRI. Reviewed she had been manic at last presentation. Considering Remeron trial which may help with restlessness and anxiety and allow for reduction of some of the anticholinergic medication she has been started on however patient appeared overwhelmed when attempting to discuss today and will defer for reconsideration tomorrow -patient refused physical therapy referral for imbalance today 04/04 - Continue current medication regimen, consider titration of mirtazapine with observation for activation 04/05 - Titrating mirtazapine to 30mg this evening - continue to monitor for possible activation and triggering of manic symptoms - Once efficacy is apparent, consider tapering sertraline to achieve antidepressant monotherapy - Continue remainder of medication regimen unchanged 04/06 - Patient reports mood and restlessness are slightly improved. - Worsening tachycardia with heart rate as high as 130, with worsening after Artane was started. As this medication can cause tachycardia, will decrease it to 1 mg twice daily. 04/07 -Tachycardia has resolved with lowered Artane dose. Restlessness is improved. 04/08 -While the patient's restlessness has improved, today, she continues to complain of restlessness and, on testing, demonstrates persistent cogwheeling. Currently, we will offer the patient a trial of diphenhydramine 12.5 mg twice a day. The target of diphenhydramine in this case is the patient's EPS, but we are also hopeful that it will aid in managing the patient's anxiety. -The patient is complaining of persistent anxiety and intrusive, ego dystonic thoughts that she tells me she is embarrassed to discuss. I offered the patient reassurances in this regard. -The patient reports that she is not having suicidal thoughts. 04/09 - 04/10 - Continue current medication regimen, reportedly demonstrating improvement 04/11 - Titrating sertraline to 150mg daily, continue remainder of current medication regimen 04/12 - Continue plan as above 04/13 - Titrating sertraline to 175mg daily, continue remainder of medication regimen for now - Pt reporting significant distress from intrusive thoughts - consider alternative options to reduce distress. Did not tolerate 15 mg dose of olanzapine due to EPS, but could consider split dosing 5 mg / 10 mg. Could also consider retrial of risperidone, or alternative agents. 04/14 - Reviewed medication options above with the patient, who does not desire to change atypical antipsychotic medications at this time. She was agreeable to titrating the dose to 5mg qAM and 10mg qHS. - Continue to monitor for EPS as dose is titrated 04/15 -I again spoke with the patient about possibly changing her antipsychotic, mood stabilizing medication from olanzapine to risperidone. The patient says that she feels fairly strongly that she would prefer to remain on olanzapine because she feels that it does help stabilize her mood. -While the patient does endorse feelings of depression, she tells us that the depression seems to be following her anxiety and distress regarding a series of alien, intrusive ego dystonic thoughts that she has great difficulty dismissing. 04/16--now willing to start Risperdal so d/c hs dose of Zyprexa and replace with Risperdal 1 mg. Reassess in am for cross taper. 04/17--not tolerating Risperdal 1 mg due to orthostasis. Reassess for restart of Zyprexa this hs vs prn Haldol. 04/19 -Diphenhydramine discontinued over the weekend due to anticholinergic side effects. Continue olanzapine 10 mg daily. She has haloperidol 1 mg every 4 hours as needed which she has not yet received. -Continue sertraline 200 mg daily and mirtazapine 30 mg at bedtime. 04/20 -Patient is received several doses of haloperidol 1 mg which has been helpful, and that she is tolerating it well, will increase to 2 mg every 4 hours as needed. If this is effective, can cross taper from olanzapine to haloperidol. -Continue to encourage patient to be out of her room and active during the day, even if unable to tolerate full groups; continued assistance for ADLs. 04/21 -Discontinue olanzapine as has not been effective and due to concern for extrapyramidal symptoms. Continue haloperidol and schedule 2mg 3 times daily, with an as needed dose as well. 04/22 -The patient continues to report feeling depressed, within the context of a history of bipolar disorder. A concern today is that the patient has been receiving multiple serotonergic medications and at the same time, may be exhibiting symptoms of serotonin syndrome. Accordingly, we will be holding mirtazapine, sertraline, and zolpidem. I have disclosed this concern, explained the causes of serotonin syndrome to the patient and she indicated und erstanding. 04/23 holding psychiatric meds expect for clonazepam a for now given possible serotonin syndrome. 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 also Lamictal a possible med option given aim to avoid worsening possible serotonin syndrome. pt not willing to take prior or new Meds currently and typewriter assembly and parts inspector seeking to hold such trails for now as well. 04/25 -Risperidone 0.5 mg in the morning and 1 mg at bedtime has been restarted. The patient previously said that she would refused to take risperidone because it "does not help." However, clinical data indicates that the patient has in the past responded quite well to risperidone and although she may have experienced an exacerbation of her [id number] while taking risperidone, we have been able to convince her to resume risperidone at this point. In the past, she reportedly has taken risperidone 1 mg twice a day, and we have started at slightly lower than thiswith the plan to titrate as indicated. -We are continuing clonazepam 0.5 mg twice a day (9 and 1600) as well as clonazepam 1 mg at bedtime. The patient appears to be responding favorably to this. 04/26 -patient appears slightly improved; continue medication adjustments as above. Encourage her to be out of her room and participating to the extent that she is able. 04/27 -encourage patient to be up during the day to consolidate and improve sleep at night. 04/28 - maintained risperidone at current dose with consideration of titrating dose up slightly if progress being obtaining appears to be plateauing. maintained Klonopin at current dosage. 04/29 -both staff and the patient, herself, believe that she is continuing to improve. At this point, we will not increase her dose of risperidone further but we will continue to observe. We will also maintain the current Klonopin dosage 04/30 -slow improvement continues. Still unwilling to discuss intrusive thoughts of hurting others and does not feel safe leaving the hospital. 05/01 -scheduled family meeting tomorrow for discharge planning. 05/02 -meeting held with the and son for discharge planning; patient distraught and overwhelmed, wants to be well enough to go home, but does not yet feel ready. Briefly discussed ECT as a good treatment option if medications are ineffective, which was very upsetting to the patient 05/03 - Continue current medication regimen - Coordinate with son regarding previously effective antidepressant medication; consider initiating an antidepressant as mood remains low - Continue to encourage consideration of PT evaluation, mobile psych nursing, or other outpatient supports as willing 05/04 - Continue current medication regimen - pt was offered antidepressant medication (consideration for escitalopram), but was declined at this time as pt states, "my medications are working" - Continue to offer supportive services on an outpatient basis to ease transition home and improve functioning in the outpatient setting, patient remains resistant - Coordinate care with and son regarding these services - MNPR discontinued as part of discharge planning process, as improvement has been observed in anxiety and functioning overall 05/05 - Continue medication regimen - Referral for case management sent today - Coordinated discharge planning with , who is able to pick patient up tomorrow morning if discharge remains appropriate (2) Generalized anxiety disorder: 03/31 -patient extremely anxious, with negative, ruminative thoughts, and severe restlessness. -Increase sertraline as above. -At home dose of hydroxyzine 25 mg at bedtime, and offer 25 mg every 4 hours as needed anxiety. -Continue clonazepam 0.5 mg every morning, and add 0.5 mg dose twice daily as needed if hydroxyzine an effective, but monitor for unsteadiness and oversedation. 04/01/19 -As noted above, some of the patient's anxious distress may be secondary to eps side effects (akathisia). -On examination, the patient does have cogwheel rigidity. However, she tells me that she feels that she is somewhat less anxious and notes that the medicat ions for her anxiety "may be helping." 04/02 -Patient remains highly anxious. Considered alternative options for bedtime hydroxyzine to reduce anticholinergic burden. Elected to trial the Remeron at 15 mg p.o. nightly which may help off label for feelings of restlessness. Hopefully this will also help to reduce her anxiety and provide some appetite stimulation but will need to watch for mood cycling in combination with the sertraline. If she does well with this agent, could consider using it as antidepressant monotherapy (tapering her off the Zoloft) 04/04 - Continue current medication regimen - consider increase or mirtazapine and possible taper of sertraline as outlined above; wanting to ensure tolerance prior to switching to mirtazapine as monotherapy 04/05 - Titrating mirtazapine to 30mg this evening; will continue sertraline at 100mg until efficacy of mirtazapine can be determined - Continue remainder of medication regimen unchanged 04/08 -As above, we are increasing her dose of sertraline to a dose of 125 mg daily to treat anxiety and depression. We will continue olanzapine to serve as a mood stabilizer given the patient's diagnosis of bipolar disorder. -Also as noted above, we have added diphenhydramine 12.5 mg twice a day for extraparametal side effects, persistent) EPS, and we will discontinue Artane. Hopefully, diphenhydramine will help not only with extraparametal side effects but, also, with the patient's generalized anxiety. -The patient's standing dose of clonazepam has been increased from 0.5 mg in the morning to 0.5 mg 3 times a day. She will also have available to her as needed clonazepam. Material risks and anticipated benefits of clonazepam have been reviewed with the patient, and it has been explained that this is not expected to be a long-term intervention but, instead, is being used to help bring the patient's anxiety under better control so that she can more fruitful he participate in the treatment on the. 04/09 - Continue current medication regimen; consider need for further titration of sertraline to 150mg daily - Patient appearing less restless/anxious, though she describes her symptoms to be unchanged 04/10 - Continue current medication regimen; consider titration of sertraline as above - pt limited in willingness to discuss multiple changes today - Patient's appearance is improving, though she reports limited changes in her condition 04/11 - Titrate sertraline to 150mg daily. Pt reporting daytime sedation, can consider possible reduction of prns at some point, when she begins to be more effective - Pt reporting mild improvements in anxiety 04/12 - Continue sertraline 150mg daily - In attempt to reduce sedation, but maintain progress with reducing anxiety/restlessness - will titrate diphenhydramine to 25mg daily (this will also allow for medication in capsule form, which patient prefers). Will discontinue scheduled TID clonazepam, but leave available prn dosing should patient require it during the day for anxiety or other concerns. - Staff also reporting apneic episodes observed at night; reducing reliance on benzodiazepines will be ideal as will reduce additional risk for respiratory concerns - Continue to encourage development of healthy and effective coping strategies 04/13 - Titrating sertraline to 175mg daily - Continue remainder of medication regimen as above - Pt has been more open about intrusive homicidal thoughts, distressing, with no intent to act. Pt is very disturbed by these thoughts - Patient unwilling for additional medication adjustments today; however, could consider titration of olanzapine. Patient did experience significant EPS when she received a 15 mg dose early in her admission. Consider split dosing - 5mg/10mg - Also consider retrial for risperidone (beneficial on last admission), possibly as prn and then scheduled in place of olanzapine if effective. Can also consider trial of another atypical antipsychotic which may better target concerns. 04/14 - Continue medication adjustments as above - olanzapine 5mg qAM and 10mg qHS 04/15 -The patient's anxiety symptoms seem to be a combination of anxious distress associated with ego-dystonic intrusive thoughts, as well as restlessness associated with extrapyramidal side effects from her medications. -She has tolerated an increase in her dose of diphenhydramine from 12.5 mg to 25 mg without excess sedation, and she tells us that she much prefers this because she did not like the taste of liquid diphenhydramine. -We are beginning clonazepam 0.5 mg up to 3 times a day as needed for anxi ety. The patient has a past history of favorable response to this medication. Material risks, including, but not limited to excess sedation, increased risk of accident, increased risk for falls, physical habituation with complicated withdrawal that may may be fatal and can include seizures, and cognitive impairment. The patient indicates understanding and notes that she has had no problems taking the clonazepam in the past. 05/04 - Recommended addition of escitalopram to target ongoing depressive symptoms and anxiety - with long-term goal to taper off clonazepam which is not ideal for the long-term - Pt declines initiation at this time, feeling her current regimen is effective (3) Orthostatic dizziness: started 04/17, repeat labs and monitor sodium (133). 04/18 - BMP notable for hyponatremia with sodium of 132. 04/19 -dizziness resolved, normotensive. Sodium 133. Encourage fluid intake. 04/22 - The patient is on bedrest and is being helped to the bathroom by staff. 04/29 -resolved. (4) Sweating abnormality: 04/21 -patient has had multiple episodes over the past few days of excessive sweating, found to be drenched in sweat and tremulous. She has been drinking excessively at times, but other times with poor oral intake. Her sodium has been slightly low. Today she is hypertensive and tachycardic. Will consult the hospitalist service for assistance and to rule out any medical contributors to her current state; reviewed with Dr. Nielsen, and appreciate any recommendations.. 04/22 -It is possible that the symptoms (diaphoresis and hypertension close disease may be secondary to serotonin syndrome. We have obtained a consult from a hospitalist, but the exact etiology has not been determined. 04/25 -This appears to have resolved. It may have been a function of serotonin syndrome, or it may have represented panic episodes. 04/29 -Resolved. (5) Serotonin syndrome: 04/22/19 -Serotonin syndrome is suspected. The patient does present with a number of symptoms that are suggestive of this. These include worsening confusion, muscle stiffness, recent onset diarrhea, diaphoresis, and pupillary dilatation. -We will treat symptomatically with benzodiazepines (Klonopin). She is also been given an order for Periactin 12 mg and we will continue this medication as indicated and tolerated. The diarrhea may be secondary to Periactin. -Serotonergic agents are being held pending further evaluation. 04/23 holding meds that have serotonin impact for now and monitoring vitals and for s/s of serotonin syndrome. with potential for more periactin doses if seems needed. 04/24 improving will attempt retrial of one med - risperdal given past response to it, monitoring closely for s/s serotonin syndrome 04/25 -Muscle stiffness, diaphoresis, diarrhea, extreme anxiety/confusion, and pupillary dilatation all appear to have resolved. Mental Health & Subst Abuse Tx Psychiatrist Name of Psychiatrist: [facility] Carey Astudillo Psychiatrist's Date of Appointment with Psychiatrist: 05/09/19 Time of Appointment with Psychiatrist: 2:00 p.m. Psychiatric Appointment Comment: [address] [place] [address] Psychiatrist Release of Information: Obtained, Reviewed and Signed Therapist Name of Therapist: [facility] Carey Petersen Therapist's Date of Therapist Appointment: 05/17/19 Time of Therapist Appointment: 1:30 p.m. Therapy Appointment Comment: [address] [facility] [place] [address] Therapist Release of Information: Obtained, Reviewed and Signed System Administration Manager Name of System Administration Manager: [facility] Phone Number for System Administration Manager: [phone] Time of Appointment with System Administration Manager: Will call you to schedule an intake Case Management Appointment Comment: [address] [facility], [address], [place] System Administration Manager Release of Information: Obtained, Reviewed and Signed Post Discharge Appointments Primary Care Physician Name Of Family Doctor: [facility] - Dr. Ayala Primary Care Date of Appointment with PCP: 05/10/19 Time of Appointment with PCP: 10:30 a.m. Provider Appointment Comment: [address], [address], [place] [address] Primary Care Release of Information: Obtained, Reviewed and Signed Smoking Cessation Counseling Tobacco Cessation Medication Prescribed at Discharge: Not Applicable/Non-Smoker Contact Information Discharge Discharge Address: [address] [place] [id number] Discharge Plan Discharge Items Patient Disposition: Home - Self-Care Reason For Visit: BIPOLAR DISORDER Discharge Diagnosis: Bipolar Disorder Activity: Resume your previous activity Non-emergency contact: Primary Care Provider, Psychiatrist, Therapist and Admissions Nurse Call non-emergency contact if: you have any medication questions and your symptoms worsen Follow-up/Referrals: Jomar Ayala [Primary Care Provider] - Diet: Regular Addtl Attending Provider Instructions: Remember that you usually can do what you make up your mind to do! Pending Studies at Discharge: No Stand-Alone Forms: [facility] Medications and DC Order Prescriptions: New clonazepam 0.5 mg Tablet 0.5 mg PO BID@0900,1600 Qty: 60 RF: 0 clonazepam 1 mg Tablet 1 mg PO HS Qty: 30 RF: 0 risperidone 1 mg Tablet 1 mg PO HS Qty: 30 RF: 0 risperidone 0.5 mg Tablet 0.5 mg PO QAM Qty: 30 RF: 0 Continued lisinopril 10 mg tablet 10 mg PO DAILY RF: 0 Discontinued sertraline 50 mg tablet 50 mg PO QAM RF: 0 clonazepam 0.5 mg tablet 0.5 mg PO QAM RF: 0 olanzapine 10 mg tablet 10 mg PO QPM RF: 0 hydroxyzine HCl 25 mg tablet 25 mg PO HS RF: 0 Discharge Orders: Discharge Order (Routine); Ordered 05/06/19 Ordered By: Jerome Ivory Admission Data Admit Date/Time: 03/30/19 19:35 Attending Provider: Marine Blanca Admit Provider: Marine Blanca Primary Care Provider: Jomar Ayala Other Providers: Yoan Lundberg Other Interventions: Discharge Summary Assessment (RN) Last Done: 05/06/19 10:22 PSY Interdisciplinary Discharge Planning Last Done: 05/06/19 10:14 DC Date/Time DO NOT enter until pt leaves facility: 05/06/19 11:18
--- NOTE | 2019-05-14 20:22 | Consultation ---
Date of Consultation April 21, 2019 Assessment & Plan (1) Weakness: most likely due to being in the hospital for three weeks, poor physical activity compounded by poor oral intake as well as potential side effects from multiple psychiatric medications difficult to determine what is going on due to reluctance to answer questions would encourage physical activity, force patient to get OOB multiple times a day (2) Tachycardia: intermittent could be due to stress and anxiety over hospitalization would not investigate further at this time (3) Bipolar 1 disorder: management per psychiatry (4) Generalized anxiety disorder: management per psychiatry History of Present Illness Requesting Physician: Dr. Blanca Reason for Consultation: Medical evaluation Attending Physician: Marine Blanca MD History of Present Illness 74 yo female with bipolar disorder who was hospitalized since 03/31 for manic episode. Patient on multiple medications for mood stabilization as well as antipsychotics. She had been experiencing extra- pyramidal side effects. Over the past week she started to experience fatigue, orthostatic hypotension, disinterest in even trying to get up out of bed. She was experiencing tachycardia, not eating or drinking very well. Not sleeping well either. Very little in way of medical history. On my attempt to evaluate the patient she would not really answer any of my questions honestly. She kept saying that all the symptoms that had been described were getting better. She said she had no further concerns. She said her energy was better, she was feeling stronger when standing. She had told the psychiatrist that she really did not want to see another doctor, caused her further anxiety. On physical exam nothing was remarkable and vitals were stable at the time of my exam. Allergies Allergy/AdvReac Type Severity Reaction Status Date / Time Penicillins Allergy Unknown rash Verified 03/30/19 16:17 Home Medications Home Medications Medication Instructions Recorded Confirmed Type lisinopril 10 mg PO DAILY 03/30/19 03/30/19 History clonazepam 0.5 mg PO BID@0900,1600 #60 tab 05/06/19 Rx clonazepam 1 mg PO HS #30 tab 05/06/19 Rx risperidone 0.5 mg PO QAM #30 tab 05/06/19 Rx risperidone 1 mg PO HS #30 tab 05/06/19 Rx Patient History Medical History Bipolar 1 disorder with moderate freedom Mental health problem Surgical History H/O: hysterectomy (~1979) Family History Other Cancer Social History Preferred Language: Maltese Communication Ability: Impaired Medical Imaging Tech Required: No Beliefs That Will Affect Care: None marital status: Current Living Situation: Spouse current occupational status: retired Feels Safe at Home: Yes Smoking Status: Never smoker Hx Alcohol Use: No Hx Substance Use: No Review of Systems Review of Systems: Unobtainable due to mental health condition (just said no to everything) Physical Exam Constitutional: well developed, well nourished, + disheveled and + diaphoretic Eyes: PERRL, conjunctivae normal, anicteric sclerae ENMT: external ear and nose normal, oropharynx normal Neck: trachea midline, no thyromegaly Respiratory: normal respiratory effort, lungs clear to auscultation Cardiovascular: RRR, no murmur, no edema Gastrointestinal (Abdomen): normal bowel sounds, soft, nontender, no hepatosplenomegaly Musculoskeletal: no cyanosis or clubbing, extremities motor strength 5/5 Skin: no rashes, warm and dry Neurologic: patellar DTR's 2+ bilat, sensation intact and PERRL, EOMI, accommodation nl, no face palsy, no dysarthria Psychiatric: Orientation: alert and oriented x 3 Eye Contact: + poor eye contact Motor Behavior: + psychomotor retardation Speech: normal rate/rhythm/volume of speech Affect: + flat affect Suicidal Thoughts: denies suicidal thoughts Cognition: recent memory grossly intact Estimated Intelligence: average estimated intelligence Insight: + poor insight PG Care Time/CCT Total # of Minutes Spent Total Time Spent with Patient: Total time spent is greater than 50% in coordination of care (as documented) at patient's floor/unit and/or counseling patient:
== END 2019-05-06 11:18 | disposition home or self-care (01) | DRG 885 ==
LOC: ED 12:11 → 3S 19:25

== ENCOUNTER 2024-08-26 16:40 | Inpatient (IN) ==
[2024-08-26 17:47] LABS: Basophils # (auto) 0.04 K/uL (0.00-0.20); Basophils % (auto) 0.5 %; Eosinophils # (auto) 0.18 K/uL (0.00-0.50); Eosinophils % (auto) 2.1 %; Hematocrit (blood only) 40.4 % (37.0-47.0); Immature Granulocytes # (auto) 0.04 K/uL (0.01-0.20); Immature Granulocytes % (auto) 0.5 %; Lymphocytes % (auto) 21.1 %; Mean Corpuscular Hemoglobin 29.8 pg (25.0-34.0); Mean Corpuscular Hgb Conc 32.2 g/dL (32.0-36.0); Mean Corpuscular Volume 92.7 fL (80.0-100.0); Monocytes # (auto) 0.59 K/uL (0.11-0.59); Monocytes % (auto) 6.9 %; Neutrophils # (auto) 5.87 K/uL (1.40-6.50); Neutrophils % (auto) 68.9 %; Platelet Count 283 K/uL (130-400); RDW Standard Deviation 44.7 fL (36.4-46.3); Red Blood Count 4.36 M/uL (4.20-5.40); White Blood Count 8.52 K/ul (4.8-10.8)
[2024-08-26 18:04] LABS: Albumin Globulin Ratio 1.1 (0.9-2); Albumin Level 4.1 gm/dl (3.4-5.0); BUN Creatinine Ratio 39.7 (10-20); Bilirubin,Total 0.7 mg/dl (0.2-1.0); Calcium 9.3 mg/dl (8.6-10.3); Creatinine Clr Calc Pharmacy 63.5 ml/min; Globulin 3.6 gm/dl (2.5-4.0); Magnesium 2.3 mg/dl (1.7-2.4); Potassium 4.3 mmol/L (3.5-5.1); Total Protein 7.7 gm/dl (6.0-8.3)
--- NOTE | 2024-08-26 18:10 | Emergency Department Note ---
Impression & Plan Fall, Contusion of face, Back pain, thoracic, Lumbar back pain ED Provider Note NAME: VALENTINA CLARK AGE: 79 SEX: Female INFORMANT: Patient ED PROVIDER(S): Roland Chaves MD CHIEF COMPLAINT: Fall PLAN: Disposition: Admitted Outpatient prescription management: none Referral: None MEDICAL DECISION MAKING: Patient presented because of a fall. She was somewhat slow on examination and had thick speech. As it turns out this is chronic per family. She had the swelling to the left side of her face. CT imaging of the head, cervical spine, facial bones, thoracic and lumbar spine was performed. Patient was found to have no acute traumatic issues. Chemistry panel and CBC were unremarkable except for dehydration. Patient was hydrated. Family noted that the patient has become weak and unsteady. They are concerned about her psychiatric medications affecting her. We did discuss treatment options including admission for medication evaluation, hydration, physical/Occupational Therapy evaluation as well as other management. They are very much in agreement. The patient had additional imaging ordered including CT angiography of the head and neck due to some right facial muscle weakness that family noted was there since the fall. MR imaging of the brain was also ordered. ECG and cath urinalysis ordered as well. Consultation was made with Dr. Gaston of the [facility] service. Patient was evaluated in the ER for further management. 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 Vital Signs: reviewed and remarkable for no significant abnormalities Additional History obtained from: Family regarding the patient's status over the last few weeks. Chronic Medical/Social Conditions affecting care: Bipolar disorder, anxiety, hypertension Prior/ Outside/ External records reviewed: none Differential Diagnosis: Concussion, contusion, fracture, subdural hematoma, epidural hematoma, intraparenchymal hemorrhage, as well as other pathologies. Diagnostics, independently interpreted by me: ECG: Twelve-lead ECG reveals a sinus rhythm with short MI at [address] elevation or depression. Cardiac Monitoring: Cardiac monitoring ordered by me: The patient was placed on continuous cardiac monitoring and observed. It revealed a normal sinus rhythm at 78 beats per minute without ectopy or evidence of dysrhythmia. Medical decision rules: none Imaging studies: Head CT: A noncontrast CT scan of the head was performed and was negative for tumor, fracture, intracranial hemorrhage, or other acute pathology. CT scan of the facial bones negative for acute pathology. CT scan of the cervical spine, lumbar spine and thoracic spine negative for acute trauma. I refer you to the EMR for further details. HPI: 79 year old Female arrives for evaluation of a fall. Patient was brought in by ambulance with a reported fall that was described as accidental. This was on August 17. Patient states that she did strike the left side of her face and does note some mild neck, thoracic and lumbar back pain. Primary office was reportedly contacted and patient was directed to ER for evaluation. Patient describes her pain as mild. Pt denies LOC, headache, visual changes, chest pain, breathing difficulties, nausea, vomiting, abdominal pain,extremity pain, numbness, weakness, urinary symptoms, open wounds, active bleeding, or other complaints. PAST MEDICAL HISTORY: See Below, hypertension PAST SURGICAL HISTORY: See Below, SOCIAL HISTORY: See Below, non-smoker HOME MEDICATIONS: See Below ALLERGIES: See Below VITALS: See Below PHYSICAL EXAMINATION: GENERAL: Awake, alert, [id number], in no distress HENT: Normocephalic, left facial contusion noted. Tenderness to palpation of the left maxilla and zygomatic arch oropharynx unremarkable. EYES: Normal conjunctiva. Sclera non-icteric. PERRL. No signs of entrapment or hyphema NECK: Inspection normal. Mild low midline tenderness. Supple. No nuchal rigidity. FROM. No masses. RESPIRATORY: Clear to auscultation. No wheezes. No rales. Normal respiratory effort. CARDIAC: Normal rate. Normal rhythm. No murmurs. No rubs. Extremities warm and well perfused. Pulses equal. No JVD. GI: Soft, non-distended. No tenderness to palpation. No rebound or guarding. No masses. RECTAL: Deferred. MUSCULOSKELETAL: Upper and lower extremities are atraumatic. Chest examination reveals no tenderness. The back is kyphotic on inspection without obvious abnormality. There is no CVA tenderness to palpation. No joint edema. The patient has mild thoracic and lumbar midline tenderness LOWER EXTREMITIES: Calves are equal size bilaterally and non-tender. No edema. No discoloration. NEURO: Normal sensorium. No sensory or motor deficits noted. SKIN: No rash or jaundice noted. PROCEDURES: none CRITICAL CARE: none OBSERVATION NOTE: none Past Med/Surg History Problem List (Updated 08/26/24 @ 18:10 by Roland Chaves MD) Lumbar back pain (Acute) Back pain, thoracic (Acute) Contusion of face (Acute) Fall (Acute) Weakness Tachycardia Hypertension Generalized anxiety disorder Bipolar 1 disorder Medical History (Updated 08/26/24 @ 18:10 by Roland Chaves MD) Bipolar 1 disorder with moderate freedom Mental health problem Surgical History H/O: hysterectomy (~1979) Family History Other Cancer Social History Smoking Status: Never smoker Hx Alcohol Use: No Hx Substance Use: No Preferred Language: Syriac Communication Ability: Impaired Visual Impairment: No Limitations 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 Required: No Beliefs That Will Affect Care: None marital status: Current Living Situation: Spouse current occupational status: retired Feels Safe at Home: Yes Assistive Devices: None Allergies Allergies Allergy/AdvReac Type Severity Reaction Status Date / Time Penicillins Allergy Unknown rash Verified 03/30/19 16:17 Home Meds Home Medications Medication Instructions Recorded Confirmed lisinopril 10 mg PO DAILY 03/30/19 03/30/19 Previous Rx's Medication Instructions Recorded clonazepam 0.5 mg tablet 0.5 mg PO BID@0900,1600 #60 tabs 05/06/19 clonazepam 1 mg tablet 1 mg PO HS #30 tabs 05/06/19 risperidone 0.5 mg tablet 0.5 mg PO QAM #30 tabs 05/06/19 risperidone 1 mg tablet 1 mg PO HS #30 tabs 05/06/19 Results & Data (ED) Vital Signs Vital Signs - 24 hr 08/26/24 16:41 08/26/24 16:52 08/26/24 16:57 Temperature 37.2 C Temperature Source Rectal Pulse Rate 95 H 95 H Pulse Rate [Apical] 94 H Respiratory Rate 23 19 Respiratory Effort / Characteristics Non-Labored Spontaneous Non-Labored Spontaneous Respiratory Depth Normal Normal Respiratory Pattern Regular Regular Blood Pressure 131/97 Blood Pressure [Right Arm] Blood Pressure Mean 108 Blood Pressure Mean [Right Arm] Blood Pressure Position Semi-fowlers Blood Pressure Position [Right Arm] Pulse Oximetry 96 95 Oxygen Delivery Method Room Air Room Air Sepsis Recent Fever Within 48 Hours No Sepsis New/Unexplained Change in Mental Status No Sepsis Action Taken by Nursing No Action Required 08/26/24 17:12 08/26/24 18:13 08/26/24 18:23 Temperature 36.7 C Temperature Source Oral Pulse Rate 89 Pulse Rate [Apical] 84 Respiratory Rate 22 30 H Respiratory Effort / Characteristics Respiratory Depth Respiratory Pattern Blood Pressure 126/87 Blood Pressure [Right Arm] 119/84 Blood Pressure Mean 100 Blood Pressure Mean [Right Arm] 95 Blood Pressure Position Blood Pressure Position [Right Arm] Semi-fowlers Pulse Oximetry 95 96 Oxygen Delivery Method Room Air Sepsis Recent Fever Within 48 Hours Sepsis New/Unexplained Change in Mental Status Sepsis Action Taken by Nursing 08/26/24 20:00 Temperature Temperature Source Pulse Rate Pulse Rate [Apical] 78 Respiratory Rate 28 H Respiratory Effort / Characteristics Non-Labored Spontaneous Respiratory Depth Normal Respiratory Pattern Regular Blood Pressure Blood Pressure [Right Arm] 116/79 Blood Pressure Mean Blood Pressure Mean [Right Arm] 91 Blood Pressure Position Blood Pressure Position [Right Arm] Semi-fowlers Pulse Oximetry 97 Oxygen Delivery Method Room Air Sepsis Recent Fever Within 48 Hours Sepsis New/Unexplained Change in Mental Status Sepsis Action Taken by Nursing Laboratory Data 08/26/24 17:05 08/26/24 17:05 Lab Results 08/26/24 08/26/24 Range/Units 17:05 19:15 WBC 8.52 (4.8-10.8) K/ul RBC 4.36 (4.20-5.40) M/uL Hgb 13.0 (12.0-16.0) g/dl Hct 40.4 (37.0-47.0) % MCV 92.7 (80.0-100.0) fL MCH 29.8 (25.0-34.0) pg MCHC 32.2 (32.0-36.0) g/dL RDW Std Deviation 44.7 (36.4-46.3) fL RDW Coeff of Gerson 13.0 (11.5-14.5) % Plt Count 283 (130-400) K/uL MPV 11.0 (9.4-12.4) fL Immature Gran % (Auto) 0.5 % Neut % (Auto) 68.9 % Lymph % (Auto) 21.1 % Citrus % (Auto) 6.9 % Eos % (Auto) 2.1 % Baso % (Auto) 0.5 % Neut # (Auto) 5.87 (1.40-6.50) K/uL Lymph # (Auto) 1.80 (1.20-3.40) K/uL Citrus # (Auto) 0.59 (0.11-0.59) K/uL Eos # (Auto) 0.18 (0.00-0.50) K/uL Baso # (Auto) 0.04 (0.00-0.20) K/uL Immature Gran # (Auto) 0.04 (0.01-0.20) K/uL Sodium 144 (136-145) mmol/L Potassium 4.3 (3.5-5.1) mmol/L Chloride 105 (98-107) mmol/L Carbon Dioxide 29 (21-32) mmol/L Anion Gap 10 (3-11) BUN 25 H (6-23) mg/dl Creatinine 0.63 (0.6-1.2) mg/dl Est Cr Clr Drug Dosing 63.5 ml/min eGFR 91.31 BUN/Creatinine Ratio 39.7 H (10-20) Glucose 139 H (70-99(Fasting)) mg/dl Calcium 9.3 (8.6-10.3) mg/dl Magnesium 2.3 (1.7-2.4) mg/dl Total Bilirubin 0.7 (0.2-1.0) mg/dl AST 15 (13-39) U/L ALT 10 (7-52) U/L Alkaline Phosphatase 72 (34-104) U/L Total Creatine Kinase 31 (26-192) U/L Troponin I High Sens 5.9 (0-14) pg/ml Total Protein 7.7 (6.0-8.3) gm/dl Albumin 4.1 (3.4-5.0) gm/dl Globulin 3.6 (2.5-4.0) gm/dl Albumin/Globulin Ratio 1.1 (0.9-2) TSH 5.181 H (0.300-4.500) uIu/ml Free T4 1.09 (0.61-1.60) ng/dl Urine Color Dark Yellow Urine Appearance Turbid A (Clear) Urine pH 5.0 (4.5-7.5) Ur Specific Kent 1.032 H (1.000-1.030) Urine Protein 1+ H (Negative) Urine Glucose (UA) Negative (Negative) Urine Ketones Trace H (Negative) Urine Blood Negative (Negative) Urine Nitrite Negative (Negative) Urine Bilirubin 1+ H (Negative) Urine Urobilinogen Negative (Negative) Ur Leukocyte Esterase Negative (Negative) Urine WBC (Auto) 0-5 (0-5) /hpf Urine RBC (Auto) 0-2 (0-2) /hpf U Hyaline Cast (Auto) >20 H (0-2) /lpf U Epithel Cells (Auto) 11-20 H (0-2) /hpf Urine Bacteria (Auto) None Seen (None Seen) Urine Mucus Present A (None Prsent) Administered Medications Sodium Chloride (Nss) 1,000 mls @ 125 mls/hr IV .Q8H PILI Stop: 08/27/24 18:44 Last Admin: 08/26/24 19:01 Dose: 125 mls/hr Documented By: GOMEZW Discontinued Medications Acetaminophen (Acetaminophen 500 Mg Tab) 1,000 mg PO NOW STA Stop: 08/26/24 17:42 Last Admin: 08/26/24 18:22 Dose: Not Given Documented By: MILKA Ioversol (Optiray 320 125ml) 116 ml IV ONCE ONE Stop: 08/26/24 19:46 Last Admin: 08/26/24 19:45 Dose: 116 ml Documented By: GAVIOTA Imaging Data Radiologist's Impression: Cervical Spine CT 08/26/24 17:33 EXAM: CT Head Maxillofacial and Cervical Spine Without Intravenous Contrast INDICATION: Trauma. TECHNIQUE: Axial computed tomography images of the head/brain, face and cervical spine without intravenous contrast. Sagittal and coronal reformatted images were created and reviewed. This CT exam was performed using one or more of the following dose reduction techniques: automated exposure control, adjustment of the mA and/or kV according to patient size, and/or use of iterative reconstruction technique. COMPARISON: No relevant prior studies available. FINDINGS: Brain and extra-axial spaces: There is age appropriate cortical atrophy and chronic ischemic periventricular white matter hypodensity. No acute infarct, hemorrhage or mass noted. Skull: No acute fracture. Sinuses: No layering fluid in the visualized portions of the paranasal sinuses. Mastoid air cells: No mastoid effusion. Vertebrae: There is accentuated cervical lordosis. The bones are demineralized. Developing anterior spondylitic bridging C3 to see 5. Diffuse mild facet hypertrophy. No fracture or significant subluxation. Discs/spinal canal/neural foramina: Mild disc space narrowing C4-C5 and C5-C6. Diffuse mild midline disc bulging. No stenosis. Soft tissues: No significant abnormality noted. Lung apices: There is scarring in the lung apices. There is a incompletely imaged focus of groundglass opacity in the left upper lobe. Image portion measures approximately 5 x 5 mm. IMPRESSION: 1. Cerebral atrophy. No acute changes. 2. Degenerative changes of the cervical spine. No fracture. 3. No facial fracture noted. ACT 112: Negative or not required by law. Electronically signed by Jenna Barney 08-26-2024 6:[address] 08/26/24 17:33 EXAM: CT Head Maxillofacial and Cervical Spine Without Intravenous Contrast INDICATION: Trauma. TECHNIQUE: Axial computed tomography images of the head/brain, face and cervical spine without intravenous contrast. Sagittal and coronal reformatted images were created and reviewed. This CT exam was performed using one or more of the following dose reduction techniques: automated exposure control, adjustment of the mA and/or kV according to patient size, and/or use of iterative reconstruction technique. COMPARISON: No relevant prior studies available. FINDINGS: Brain and extra-axial spaces: There is age appropriate cortical atrophy and chronic ischemic periventricular white matter hypodensity. No acute infarct, hemorrhage or mass noted. Skull: No acute fracture. Sinuses: No layering fluid in the visualized portions of the paranasal sinuses. Mastoid air cells: No mastoid effusion. Vertebrae: There is accentuated cervical lordosis. The bones are demineralized. Developing anterior spondylitic bridging C3 to see 5. Diffuse mild facet hypertrophy. No fracture or significant subluxation. Discs/spinal canal/neural foramina: Mild disc space narrowing C4-C5 and C5-C6. Diffuse mild midline disc bulging. No stenosis. Soft tissues: No significant abnormality noted. Lung apices: There is scarring in the lung apices. There is a incompletely imaged focus of groundglass opacity in the left upper lobe. Image portion measures approximately 5 x 5 mm. IMPRESSION: 1. Cerebral atrophy. No acute changes. 2. Degenerative changes of the cervical spine. No fracture. 3. No facial fracture noted. ACT 112: Negative or not required by law. Electronically signed by Jenna Barney 08-26-2024 6:[address] 08/26/24 17:33 EXAM: CT Lumbar Spine Without Intravenous Contrast INDICATION: Fall. TECHNIQUE: Axial computed tomography images of the lumbar spine without intravenous contrast. Sagittal and coronal reformatted images were created and reviewed. This CT exam was performed using one or more of the following dose reduction techniques: automated exposure control, adjustment of the mA and/or kV according to patient size, and/or use of iterative reconstruction technique. COMPARISON: No relevant prior studies available. FINDINGS: Limitations: None. Vertebrae: The bones are demineralized. Diffuse mild to moderate spondylosis and facet hypertrophy. No fracture or subluxation. There is mild to space narrowing L1-L2, L2-L3 and L3-L4. Sacrum/coccyx: No significant abnormality noted. No acute change noted. Discs/spinal canal/neural foramina: There is mild asymmetric left disc protrusion at L1-L2. No stenosis. Mild diffuse disc bulge L2-L3 without stenosis. There is diffuse osteophyte disc bulging with slight far right lateral asymmetry L3-L4. There is mild ventral canal flattening and minimal abutment of the right L4 exiting nerve root. There is diffuse disc bulge with mild ventral stenosis at L4-L5. There is a prominent left subarticular osteophyte disc complex. Soft tissues: No significant abnormality noted. IMPRESSION: No lumbar fracture. Degenerative changes as above. ACT 112: Negative or not required by law. Electronically signed by Jenna Barney 08-26-2024 6:[address] 08/26/24 17:33 EXAM: CT Thoracic Spine Without Intravenous Contrast INDICATION: Trauma. TECHNIQUE: Axial computed tomography images of the thoracic spine without intravenous contrast. Sagittal and coronal reformatted images were created and reviewed. This CT exam was performed using one or more of the following dose reduction techniques: automated exposure control, adjustment of the mA and/or kV according to patient size, and/or use of iterative reconstruction technique. COMPARISON: No relevant prior studies available. FINDINGS: Limitations: None. Vertebrae: The bones are demineralized. There is S-shaped scoliotic curvature. The vertebral bodies are normally developed. No fracture or subluxation. There is mild scattered spondylitic change. Probable old fracture of the right posterior sixth rib at the costovertebral junction. No acute fracture. Discs/spinal canal/neural foramina: No significant disc space abnormality or stenosis. Other bones/joints: No abnormality noted. Soft tissues: No significant abnormality noted. Lungs and pleural spaces: There is a 5 mm diameter groundglass nodule in the left upper lobe series 11 image 26. Heart: No abnormality noted. Mediastinum: No significant abnormality noted. Liver: No significant abnormality noted. IMPRESSION: 1. Scoliosis and mild degenerative changes. No fracture. 2. 5 mm left upper lobe groundglass nodule. In the absence of a prior study, CT chest recommended. ACT 112: Negative or not required by law. Electronically signed by Jenna Barney 08-26-2024 6:[address] 08/26/24 17:34 EXAM: CT Head Maxillofacial and Cervical Spine Without Intravenous Contrast INDICATION: Trauma. TECHNIQUE: Axial computed tomography images of the head/brain, face and cervical spine without intravenous contrast. Sagittal and coronal reformatted images were created and reviewed. This CT exam was performed using one or more of the following dose reduction techniques: automated exposure control, adjustment of the mA and/or kV according to patient size, and/or use of iterative reconstruction technique. COMPARISON: No relevant prior studies available. FINDINGS: Brain and extra-axial spaces: There is age appropriate cortical atrophy and chronic ischemic periventricular white matter hypodensity. No acute infarct, hemorrhage or mass noted. Skull: No acute fracture. Sinuses: No layering fluid in the visualized portions of the paranasal sinuses. Mastoid air cells: No mastoid effusion. Vertebrae: There is accentuated cervical lordosis. The bones are demineralized. Developing anterior spondylitic bridging C3 to see 5. Diffuse mild facet hypertrophy. No fracture or significant subluxation. Discs/spinal canal/neural foramina: Mild disc space narrowing C4-C5 and C5-C6. Diffuse mild midline disc bulging. No stenosis. Soft tissues: No significant abnormality noted. Lung apices: There is scarring in the lung apices. There is a incompletely imaged focus of groundglass opacity in the left upper lobe. Image portion measures approximately 5 x 5 mm. IMPRESSION: 1. Cerebral atrophy. No acute changes. 2. Degenerative changes of the cervical spine. No fracture. 3. No facial fracture noted. ACT 112: Negative or not required by law. Electronically signed by Jenna Barney 08-26-2024 6:40 PM Discharge Plan Visit Data Chief Complaint: Fall Stated Complaint: FALL, SWELLING R EYE, ED Provider: Roland Chaves Discharge Problem: Fall, Contusion of face, Back pain, thoracic, Lumbar back pain Forms Stand Alone Forms: [facility] Prescriptions Prescriptions: No Action lisinopril 10 mg tablet 10 mg PO DAILY clonazepam 0.5 mg Tablet 0.5 mg PO BID@0900,1600 Qty: 60 0RF clonazepam 1 mg Tablet 1 mg PO HS Qty: 30 0RF risperidone 1 mg Tablet 1 mg PO HS Qty: 30 0RF risperidone 0.5 mg Tablet 0.5 mg PO QAM Qty: 30 0RF Referrals Referrals: Jomar Ayala MD [Outside Practitioners] -
[2024-08-26 18:18] LABS: Thyroid Stimulating Hormone 5.181 uIu/ml (0.300-4.500)
[2024-08-26] MEDS: ACETAMINOPHEN 500 MG TAB PO STA (18:22)
--- NOTE | 2024-08-26 18:40 | CT Scan Report ---
EXAM: CT Thoracic Spine Without Intravenous Contrast INDICATION: Trauma. TECHNIQUE: Axial computed tomography images of the thoracic spine without intravenous contrast. Sagittal and coronal reformatted images were created and reviewed. This CT exam was performed using one or more of the following dose reduction techniques: automated exposure control, adjustment of the mA and/or kV according to patient size, and/or use of iterative reconstruction technique. COMPARISON: No relevant prior studies available. FINDINGS: Limitations: None. Vertebrae: The bones are demineralized. There is S-shaped scoliotic curvature. The vertebral bodies are normally developed. No fracture or subluxation. There is mild scattered spondylitic change. Probable old fracture of the right posterior sixth rib at the costovertebral junction. No acute fracture. Discs/spinal canal/neural foramina: No significant disc space abnormality or stenosis. Other bones/joints: No abnormality noted. Soft tissues: No significant abnormality noted. Lungs and pleural spaces: There is a 5 mm diameter groundglass nodule in the left upper lobe series 11 image 26. Heart: No abnormality noted. Mediastinum: No significant abnormality noted. Liver: No significant abnormality noted. IMPRESSION: 1. Scoliosis and mild degenerative changes. No fracture. 2. 5 mm left upper lobe groundglass nodule. In the absence of a prior study, CT chest recommended. ACT 112: Negative or not required by law. Electronically signed by Jenna Barney 08-26-2024 6:40 PM
--- NOTE | 2024-08-26 18:40 | CT Scan Report ---
EXAM: CT Head Maxillofacial and Cervical Spine Without Intravenous Contrast INDICATION: Trauma. TECHNIQUE: Axial computed tomography images of the head/brain, face and cervical spine without intravenous contrast. Sagittal and coronal reformatted images were created and reviewed. This CT exam was performed using one or more of the following dose reduction techniques: automated exposure control, adjustment of the mA and/or kV according to patient size, and/or use of iterative reconstruction technique. COMPARISON: No relevant prior studies available. FINDINGS: Brain and extra-axial spaces: There is age appropriate cortical atrophy and chronic ischemic periventricular white matter hypodensity. No acute infarct, hemorrhage or mass noted. Skull: No acute fracture. Sinuses: No layering fluid in the visualized portions of the paranasal sinuses. Mastoid air cells: No mastoid effusion. Vertebrae: There is accentuated cervical lordosis. The bones are demineralized. Developing anterior spondylitic bridging C3 to see 5. Diffuse mild facet hypertrophy. No fracture or significant subluxation. Discs/spinal canal/neural foramina: Mild disc space narrowing C4-C5 and C5-C6. Diffuse mild midline disc bulging. No stenosis. Soft tissues: No significant abnormality noted. Lung apices: There is scarring in the lung apices. There is a incompletely imaged focus of groundglass opacity in the left upper lobe. Image portion measures approximately 5 x 5 mm. IMPRESSION: 1. Cerebral atrophy. No acute changes. 2. Degenerative changes of the cervical spine. No fracture. 3. No facial fracture noted. ACT 112: Negative or not required by law. Electronically signed by Jenna Barney 08-26-2024 6:40 PM
--- NOTE | 2024-08-26 18:40 | CT Scan Report ---
EXAM: CT Lumbar Spine Without Intravenous Contrast INDICATION: Fall. TECHNIQUE: Axial computed tomography images of the lumbar spine without intravenous contrast. Sagittal and coronal reformatted images were created and reviewed. This CT exam was performed using one or more of the following dose reduction techniques: automated exposure control, adjustment of the mA and/or kV according to patient size, and/or use of iterative reconstruction technique. COMPARISON: No relevant prior studies available. FINDINGS: Limitations: None. Vertebrae: The bones are demineralized. Diffuse mild to moderate spondylosis and facet hypertrophy. No fracture or subluxation. There is mild to space narrowing L1-L2, L2-L3 and L3-L4. Sacrum/coccyx: No significant abnormality noted. No acute change noted. Discs/spinal canal/neural foramina: There is mild asymmetric left disc protrusion at L1-L2. No stenosis. Mild diffuse disc bulge L2-L3 without stenosis. There is diffuse osteophyte disc bulging with slight far right lateral asymmetry L3-L4. There is mild ventral canal flattening and minimal abutment of the right L4 exiting nerve root. There is diffuse disc bulge with mild ventral stenosis at L4-L5. There is a prominent left subarticular osteophyte disc complex. Soft tissues: No significant abnormality noted. IMPRESSION: No lumbar fracture. Degenerative changes as above. ACT 112: Negative or not required by law. Electronically signed by Jenna Barney 08-26-2024 6:40 PM
[2024-08-26 18:54] LABS: T4 Free Thyroxine 1.09 ng/dl (0.61-1.60)
[2024-08-26] MEDS: SODIUM CHLORIDE 0.9% 1,000 ML IV SCH (19:01)
[2024-08-26 19:26] LABS: Troponin I High Sensitivity 5.9 pg/ml (0-14)
[2024-08-26] MEDS: OPTIRAY 320 125ml IV ONE (19:45)
[2024-08-26 19:48] LABS: Appearance Urine Turbid (Clear); Bacteria Urine Automated None Seen (None Seen); Bilirubin Urine 1+ (Negative); Blood Urine Negative (Negative); Cast Urine Automated >20 /lpf (0-2); Color Urine Dark Yellow; Glucose Urine UA Negative (Negative); Ketones Urine Trace (Negative); Leukocyte Esterase Urine Negative (Negative); Mucus Urine Present (None Prsent); Nitrite Urine Negative (Negative); Protein Urine 1+ (Negative); RBC Urine Automated 0-2 /hpf (0-2); Specific Gravity Urine 1.032 (1.000-1.030); Urobilinogen Urine Negative (Negative); WBC Urine Automated 0-5 /hpf (0-5)
--- NOTE | 2024-08-26 20:14 | History & Physical Report ---
Date of Service August 26, 2024 Assessment & Plan (1) Weakness: Plan: 79yo female with progressive decline over the last several years presenting after sustaining an unwitnessed fall 9 days ago with head trauma. Family endorses some progressive decline since the fall including right facial droop, ambulatory dysfunction, possibly right sided weakness, poor PO intake and difficulty swallowing. Elevated temperature of 100.9 reported by EMS but patient has been afebrile here. She does appear very dry on clinical exam. Concern for possible stroke leading to the fall 9 days ago? Dehydration, possible UTI contributing to generalized weakness -Admit to medical -MRI brain obtained - results pending -Continue IVF hydration - NSS at 100mL/hr x 3 liters ordered -Speech and swallow evaluation -Fall precautions -Urine culture -Tylenol as needed for pain and fever (2) Bipolar 1 disorder: Plan: Patient has had 2 prior hospitalizations in 2019 for Bipolar/freedom and anxiety. She follows with Psychiatry. Currently taking Risperidone 0.5mg po BID and Clonazepam 1mg po qHS and 0.5mg po BID. Family voices concern for patient being overmedicated - state that since being on these medications they have noted a progressive functional decline. -Workup and treatment of any acute, medical causes for patient's decline - mainly considering CVA, dehydration, possible UTI. -Will place Psychiatry consultation for re-evaluation of patient's medications. -For now will continue her Risperdal 0.5mg po BID and her PM Clonazepam 1mg -Will reduce her daily Clonazepam to 0.25mg po BID -Patient may benefit from being slowly weaned off Clonazepam entirely - consider treatment with Hydroxyzine as needed for anxiety -Could consider treatment with Seroquel 200mg po qHS + Prozac 10mg for her Bipolar/ISIDRA or use of Zyprexa 5mg po qHS + Prozac 10mg po qAM -Will defer to Psychiatry -Patient would also benefit from dementia screening once acute medical issues have been addressed History of Present Illness Chief Complaint: generalized weakness Primary Care Provider: DO Chayo Anders Jeanette is a 79yo female with history of Bipolar disorder, generalized anxiety and HTN presenting from home with generalized weakness and ambulatory dysfunction. Patient had an unwitnessed fall on 08/17/24 and hit the left side of her face. Her family reports since then she has had more weakness (possibly more on the right side) as well as a slight right facial droop, difficulty ambulating and coughing with meals. Increased fatigue - sleeps throughout the day. reports that she is more afraid to get up and ambulate due to her recent fall. Prior to her fall on 08/17/24 she was able to climb up stairs but has not been doing that anymore. She has had decreased appetite and poor oral intake since 08/17/24. Patient reports some headache. Fever noted by EMS en route Ha=302.9 Otherwise, no chest pain, cough, SOB, abdominal pain, nausea, vomiting, diarrhea or constipation. She has chronic dysarthria but seems to have a new right facial droop and right sided weakness. Family voices additional concern about patient's psychiatric meds. They report that since being on her Psychiatric medications since 2018 she has "been a zombie" and has had significant loss of function, decreased strength and activity. Patient has history of generalized anxiety disorder and bipolar disorder. She was hospitalized in September 2018 with manic behavior. At that time she was taking Zoloft unopposed. She was prescribed Risperdal and Trazodone but was not taking them. Her Risperdal was restarted and she was started on Klonopin PRN during her hospitalization. She was ultimately discharged on Risperidone 1mg po BID with followup at [facility]. Patient was re-hospitalized in March 2019 with Bipolar and anxiety. At that time she was on Olanzapine, Sertraline, Clonazepam and Hydroxyzine. She was ultimately discharged on Clonazepam 1mg po qHS and 0.5mg po BID and Risperidone 1mg po qHS and 0.5mg po qAM. Son and are concerned that patient is being overmedicated. She is currently taking Risperidone 0.5mg po BID and Clonazepam 1mg po qHS and 0.5mg po BID In the ER she is afebrile, HD stable ER Course: NSS at 125mL/hr Allergies Allergy/AdvReac Type Severity Reaction Status Date / Time Penicillins Allergy Unknown rash Verified 03/30/19 16:17 Home Medications Medication Instructions Recorded Confirmed Type lisinopril 10 mg PO DAILY 03/30/19 03/30/19 History clonazepam 0.5 mg tablet 0.5 mg PO BID@0900,1600 #60 tabs 05/06/19 Rx clonazepam 1 mg tablet 1 mg PO HS #30 tabs 05/06/19 Rx risperidone 0.5 mg tablet 0.5 mg PO QAM #30 tabs 05/06/19 Rx risperidone 1 mg tablet 1 mg PO HS #30 tabs 05/06/19 Rx Past Med/Surg History Problem List (Updated 08/26/24 @ 21:00 by Charlene Gaston DO) Lumbar back pain (Acute) Back pain, thoracic (Acute) Contusion of face (Acute) Fall (Acute) Weakness Bipolar 1 disorder Medical History (Updated 08/26/24 @ 21:00 by Charlene Gaston DO) Hypertension Generalized anxiety disorder Bipolar 1 disorder with moderate freedom Surgical History H/O: hysterectomy (~1979) Family History Other Cancer Social History Smoking Status: Never smoker Hx Alcohol Use: No Hx Substance Use: No Preferred Language: Kinyarwanda Communication Ability: Impaired Visual Impairment: No Limitations Hearing Ability: Normal Scientific Director Required: No Beliefs That Will Affect Care: None marital status: Current Living Situation: Spouse current occupational status: retired Feels Safe at Home: Yes Assistive Devices: None Review of Systems Review of Systems: All systems reviewed & are unremarkable except as noted in HPI & below Physical Exam Physical Exam: General: chronically ill in appearance, garbled speech Skin: no rash HEENT: left sided facial contusion, PERRL, dry mucus membranes Heart: +S1/S2, regular, no m/r/g Lungs: equal air entry bilaterally, no rales/rhonchi/wheezes Abd: +BS, soft, NT/ND, no masses/organomegaly/ascites Ext: warm, 2+ pulses in UE/LE bilaterally, no clubbing/cyanosis or edema Neuro: patient with dysarthric speech, mild right facial droop, generalized weakness in UE bilaterally, LE 4/5 strength bilaterally Results & Data Results & Data Vital Signs (Past 12 Hours) Vital Signs Temp Pulse Pulse Resp BP BP Pulse Ox 08/26/24 18:23 36.7 C 08/26/24 18:13 84 30 H 119/84 96 08/26/24 17:12 89 22 126/87 95 08/26/24 16:57 95 H 08/26/24 16:52 94 H 19 95 08/26/24 16:41 37.2 C 95 H 23 131/97 96 O2 Del Method 08/26/24 18:23 08/26/24 18:13 Room Air 08/26/24 17:12 08/26/24 16:57 08/26/24 16:52 Room Air 08/26/24 16:41 Room Air Laboratory Results Laboratory Results WBC 8.52 K/ul (4.8-10.8) 08/26/24 17:05 RBC 4.36 M/uL (4.20-5.40) 08/26/24 17:05 Hgb 13.0 g/dl (12.0-16.0) 08/26/24 17:05 Hct 40.4 % (37.0-47.0) 08/26/24 17:05 MCV 92.7 fL (80.0-100.0) 08/26/24 17:05 MCH 29.8 pg (25.0-34.0) 08/26/24 17:05 MCHC 32.2 g/dL (32.0-36.0) 08/26/24 17:05 RDW Std Deviation 44.7 fL (36.4-46.3) 08/26/24 17:05 RDW Coeff of [place] 13.0 % (11.5-14.5) 08/26/24 17:05 Plt Count 283 K/uL (130-400) 08/26/24 17:05 MPV 11.0 fL (9.4-12.4) 08/26/24 17:05 Immature Gran % (Auto) 0.5 % 08/26/24 17:05 Neut % (Auto) 68.9 % 08/26/24 17:05 Lymph % (Auto) 21.1 % 08/26/24 17:05 [place] % (Auto) 6.9 % 08/26/24 17:05 Eos % (Auto) 2.1 % 08/26/24 17:05 Baso % (Auto) 0.5 % 08/26/24 17:05 Neut # (Auto) 5.87 K/uL (1.40-6.50) 08/26/24 17:05 Lymph # (Auto) 1.80 K/uL (1.20-3.40) 08/26/24 17:05 [place] # (Auto) 0.59 K/uL (0.11-0.59) 08/26/24 17:05 Eos # (Auto) 0.18 K/uL (0.00-0.50) 08/26/24 17:05 Baso # (Auto) 0.04 K/uL (0.00-0.20) 08/26/24 17:05 Immature Gran # (Auto) 0.04 K/uL (0.01-0.20) 08/26/24 17:05 Sodium 144 mmol/L (136-145) 08/26/24 17:05 Potassium 4.3 mmol/L (3.5-5.1) 08/26/24 17:05 Chloride 105 mmol/L (98-107) 08/26/24 17:05 Carbon Dioxide 29 mmol/L (21-32) 08/26/24 17:05 Anion Gap 10 (3-11) 08/26/24 17:05 BUN 25 mg/dl (6-23) H 08/26/24 17:05 Creatinine 0.63 mg/dl (0.6-1.2) 08/26/24 17:05 Est Cr Clr Drug Dosing 63.5 ml/min 08/26/24 17:05 eGFR 91.31 08/26/24 17:05 BUN/Creatinine Ratio 39.7 (10-20) H 08/26/24 17:05 Glucose 139 mg/dl (70-99(Fasting)) H 08/26/24 17:05 Calcium 9.3 mg/dl (8.6-10.3) 08/26/24 17:05 Magnesium 2.3 mg/dl (1.7-2.4) 08/26/24 17:05 Total Bilirubin 0.7 mg/dl (0.2-1.0) 08/26/24 17:05 AST 15 U/L (13-39) 08/26/24 17:05 ALT 10 U/L (7-52) 08/26/24 17:05 Alkaline Phosphatase 72 U/L (34-104) 08/26/24 17:05 Total Creatine Kinase 31 U/L (26-192) 08/26/24 17:05 Troponin I High Sens 5.9 pg/ml (0-14) 08/26/24 17:05 Total Protein 7.7 gm/dl (6.0-8.3) 08/26/24 17:05 Albumin 4.1 gm/dl (3.4-5.0) 08/26/24 17:05 Globulin 3.6 gm/dl (2.5-4.0) 08/26/24 17:05 Albumin/Globulin Ratio 1.1 (0.9-2) 08/26/24 17:05 TSH 5.181 uIu/ml (0.300-4.500) H 08/26/24 17:05 Free T4 1.09 ng/dl (0.61-1.60) 08/26/24 17:05 Urine Color Dark Yellow 08/26/24 19:15 Urine Appearance Turbid (Clear) A 08/26/24 19:15 Urine pH 5.0 (4.5-7.5) 08/26/24 19:15 Ur Specific [place] 1.032 (1.000-1.030) H 08/26/24 19:15 Urine Protein 1+ (Negative) H 08/26/24 19:15 Urine Glucose (UA) Negative (Negative) 08/26/24 19:15 Urine Ketones Trace (Negative) H 08/26/24 19:15 Urine Blood Negative (Negative) 08/26/24 19:15 Urine Nitrite Negative (Negative) 08/26/24 19:15 Urine Bilirubin 1+ (Negative) H 08/26/24 19:15 Urine Urobilinogen Negative (Negative) 08/26/24 19:15 Ur Leukocyte Esterase Negative (Negative) 08/26/24 19:15 Urine WBC (Auto) 0-5 /hpf (0-5) 08/26/24 19:15 Urine RBC (Auto) 0-2 /hpf (0-2) 08/26/24 19:15 U Hyaline Cast (Auto) >20 /lpf (0-2) H 08/26/24 19:15 U Epithel Cells (Auto) 11-20 /hpf (0-2) H 08/26/24 19:15 Urine Bacteria (Auto) None Seen (None Seen) 08/26/24 19:15 Urine Mucus Present (None Prsent) A 08/26/24 19:[address] 08/26/24 17:33 EXAM: CT Head Maxillofacial and Cervical Spine Without Intravenous Contrast INDICATION: Trauma. TECHNIQUE: Axial computed tomography images of the head/brain, face and cervical spine without intravenous contrast. Sagittal and coronal reformatted images were created and reviewed. This CT exam was performed using one or more of the following dose reduction techniques: automated exposure control, adjustment of the mA and/or kV according to patient size, and/or use of iterative reconstruction technique. COMPARISON: No relevant prior studies available. FINDINGS: Brain and extra-axial spaces: There is age appropriate cortical atrophy and chronic ischemic periventricular white matter hypodensity. No acute infarct, hemorrhage or mass noted. Skull: No acute fracture. Sinuses: No layering fluid in the visualized portions of the paranasal sinuses. Mastoid air cells: No mastoid effusion. Vertebrae: There is accentuated cervical lordosis. The bones are demineralized. Developing anterior spondylitic bridging C3 to see 5. Diffuse mild facet hypertrophy. No fracture or significant subluxation. Discs/spinal canal/neural foramina: Mild disc space narrowing C4-C5 and C5-C6. Diffuse mild midline disc bulging. No stenosis. Soft tissues: No significant abnormality noted. Lung apices: There is scarring in the lung apices. There is a incompletely imaged focus of groundglass opacity in the left upper lobe. Image portion measures approximately 5 x 5 mm. IMPRESSION: 1. Cerebral atrophy. No acute changes. 2. Degenerative changes of the cervical spine. No fracture. 3. No facial fracture noted. ACT 112: Negative or not required by law. Electronically signed by Jenna Barney 08-26-2024 6:[address] 08/26/24 17:33 EXAM: CT Head Maxillofacial and Cervical Spine Without Intravenous Contrast INDICATION: Trauma. TECHNIQUE: Axial computed tomography images of the head/brain, face and cervical spine without intravenous contrast. Sagittal and coronal reformatted images were created and reviewed. This CT exam was performed using one or more of the following dose reduction techniques: automated exposure control, adjustment of the mA and/or kV according to patient size, and/or use of iterative reconstruction technique. COMPARISON: No relevant prior studies available. FINDINGS: Brain and extra-axial spaces: There is age appropriate cortical atrophy and chronic ischemic periventricular white matter hypodensity. No acute infarct, hemorrhage or mass noted. Skull: No acute fracture. Sinuses: No layering fluid in the visualized portions of the paranasal sinuses. Mastoid air cells: No mastoid effusion. Vertebrae: There is accentuated cervical lordosis. The bones are demineralized. Developing anterior spondylitic bridging C3 to see 5. Diffuse mild facet hypertrophy. No fracture or significant subluxation. Discs/spinal canal/neural foramina: Mild disc space narrowing C4-C5 and C5-C6. Diffuse mild midline disc bulging. No stenosis. Soft tissues: No significant abnormality noted. Lung apices: There is scarring in the lung apices. There is a incompletely imaged focus of groundglass opacity in the left upper lobe. Image portion measures approximately 5 x 5 mm. IMPRESSION: 1. Cerebral atrophy. No acute changes. 2. Degenerative changes of the cervical spine. No fracture. 3. No facial fracture noted. ACT 112: Negative or not required by law. Electronically signed by Jenna Barney 08-26-2024 6:[address] 08/26/24 17:33 EXAM: CT Lumbar Spine Without Intravenous Contrast INDICATION: Fall. TECHNIQUE: Axial computed tomography images of the lumbar spine without intravenous contrast. Sagittal and coronal reformatted images were created and reviewed. This CT exam was performed using one or more of the following dose reduction techniques: automated exposure control, adjustment of the mA and/or kV according to patient size, and/or use of iterative reconstruction technique. COMPARISON: No relevant prior studies available. FINDINGS: Limitations: None. Vertebrae: The bones are demineralized. Diffuse mild to moderate spondylosis and facet hypertrophy. No fracture or subluxation. There is mild to space narrowing L1-L2, L2-L3 and L3-L4. Sacrum/coccyx: No significant abnormality noted. No acute change noted. Discs/spinal canal/neural foramina: There is mild asymmetric left disc protrusion at L1-L2. No stenosis. Mild diffuse disc bulge L2-L3 without stenosis. There is diffuse osteophyte disc bulging with slight far right lateral asymmetry L3-L4. There is mild ventral canal flattening and minimal abutment of the right L4 exiting nerve root. There is diffuse disc bulge with mild ventral stenosis at L4-L5. There is a prominent left subarticular osteophyte disc complex. Soft tissues: No significant abnormality noted. IMPRESSION: No lumbar fracture. Degenerative changes as above. ACT 112: Negative or not required by law. Electronically signed by Jenna Barney 08-26-2024 6:[address] 08/26/24 17:33 EXAM: CT Thoracic Spine Without Intravenous Contrast INDICATION: Trauma. TECHNIQUE: Axial computed tomography images of the thoracic spine without intravenous contrast. Sagittal and coronal reformatted images were created and reviewed. This CT exam was performed using one or more of the following dose reduction techniques: automated exposure control, adjustment of the mA and/or kV according to patient size, and/or use of iterative reconstruction technique. COMPARISON: No relevant prior studies available. FINDINGS: Limitations: None. Vertebrae: The bones are demineralized. There is S-shaped scoliotic curvature. The vertebral bodies are normally developed. No fracture or subluxation. There is mild scattered spondylitic change. Probable old fracture of the right posterior sixth rib at the costovertebral junction. No acute fracture. Discs/spinal canal/neural foramina: No significant disc space abnormality or stenosis. Other bones/joints: No abnormality noted. Soft tissues: No significant abnormality noted. Lungs and pleural spaces: There is a 5 mm diameter groundglass nodule in the left upper lobe series 11 image 26. Heart: No abnormality noted. Mediastinum: No significant abnormality noted. Liver: No significant abnormality noted. IMPRESSION: 1. Scoliosis and mild degenerative changes. No fracture. 2. 5 mm left upper lobe groundglass nodule. In the absence of a prior study, CT chest recommended. ACT 112: Negative or not required by law. Electronically signed by Jenna Barney 08-26-2024 6:[address] 08/26/24 17:34 EXAM: CT Head Maxillofacial and Cervical Spine Without Intravenous Contrast INDICATION: Trauma. TECHNIQUE: Axial computed tomography images of the head/brain, face and cervical spine without intravenous contrast. Sagittal and coronal reformatted images were created and reviewed. This CT exam was performed using one or more of the following dose reduction techniques: automated exposure control, adjustment of the mA and/or kV according to patient size, and/or use of iterative reconstruction technique. COMPARISON: No relevant prior studies available. FINDINGS: Brain and extra-axial spaces: There is age appropriate cortical atrophy and chronic ischemic periventricular white matter hypodensity. No acute infarct, hemorrhage or mass noted. Skull: No acute fracture. Sinuses: No layering fluid in the visualized portions of the paranasal sinuses. Mastoid air cells: No mastoid effusion. Vertebrae: There is accentuated cervical lordosis. The bones are demineralized. Developing anterior spondylitic bridging C3 to see 5. Diffuse mild facet hypertrophy. No fracture or significant subluxation. Discs/spinal canal/neural foramina: Mild disc space narrowing C4-C5 and C5-C6. Diffuse mild midline disc bulging. No stenosis. Soft tissues: No significant abnormality noted. Lung apices: There is scarring in the lung apices. There is a incompletely imaged focus of groundglass opacity in the left upper lobe. Image portion measures approximately 5 x 5 mm. IMPRESSION: 1. Cerebral atrophy. No acute changes. 2. Degenerative changes of the cervical spine. No fracture. 3. No facial fracture noted. ACT 112: Negative or not required by law. Electronically signed by Jenna Barney 08-26-2024 6:40 PM Head CTA 08/26/24 18:51 Exam(s): CTA HEAD With Contrast IV Amt: 116ML OPTIRAY 320 EXAM: CT Angiography Head With Intravenous Contrast CLINICAL HISTORY: Reason for exam: weakness, right facial, fall. TECHNIQUE: Axial computed tomographic angiography images of the head with intravenous contrast. CTDI is 18 mGy and DLP is 347 mGy-cm. Automated exposure control was utilized for the study. A dose lowering technique was utilized adhering to the principles of ALARA. MIP reconstructed images were created and reviewed. CONTRAST: Patient received 116ML OPTIRAY 320 of IV contrast COMPARISON: CT head 08/26/24 FINDINGS: Right internal carotid artery: No acute findings. Intracranial segment is patent with no significant stenosis. No aneurysm. Right anterior cerebral artery: Unremarkable. No occlusion or significant stenosis. No aneurysm. Right middle cerebral artery: Unremarkable. No occlusion or significant stenosis. No aneurysm. Right posterior cerebral artery: Unremarkable. No occlusion or significant stenosis. No aneurysm. Right vertebral artery: Unremarkable as visualized. Left internal carotid artery: No acute findings. Intracranial segment is patent with no significant stenosis. No aneurysm. Left anterior cerebral artery: Unremarkable. No occlusion or significant stenosis. No aneurysm. Left middle cerebral artery: Unremarkable. No occlusion or significant stenosis. No aneurysm. Left posterior cerebral artery: Unremarkable. No occlusion or significant stenosis. No aneurysm. Left vertebral artery: Unremarkable as visualized. Basilar artery: Unremarkable. No occlusion or significant stenosis. No aneurysm. IMPRESSION: Patent intracranial circulation. Electronically signed by: Rebecca Hargrove M.D. 08/26/24 20:28 PM Neck CTA 08/26/24 18:51 Exam(s): CTA NECK With Contrast IV Amt: 116ML OPTIRAY 320 EXAM: CT Angiography Neck With Intravenous Contrast CLINICAL HISTORY: Reason for exam: weakness, right facial, fall. TECHNIQUE: Routine carotid CT angiography protocol was performed with intravenous contrast. NASCET criteria using the distal ICAs for comparison were used for evaluation of stenoses. CTDI is hand additional 18 mGy and DLP is 347 mGy-cm. Automated exposure control was utilized for the study. A dose lowering technique was utilized adhering to the principles of ALARA. MIP reconstructed images were created and reviewed. CONTRAST: Patient received 116ML OPTIRAY 320 of IV contrast COMPARISON: None. FINDINGS: VASCULATURE: Right common carotid artery: Unremarkable. No occlusion or significant stenosis. No dissection. Right internal carotid artery: Unremarkable. Extracranial segment is patent with no occlusion or significant stenosis. No dissection. Right external carotid artery: Unremarkable. No occlusion. Right vertebral artery: Unremarkable. No occlusion or significant stenosis. No dissection. Left common carotid artery: Unremarkable. No occlusion or significant stenosis. No dissection. Left internal carotid artery: Unremarkable. Extracranial segment is patent with no occlusion or significant stenosis. No dissection. Left external carotid artery: Unremarkable. No occlusion. Left vertebral artery: Unremarkable. No occlusion or significant stenosis. No dissection. Aorta: Conventional aortic arch branch anatomy. NECK: Bones/joints: Unremarkable. No acute fracture. Soft tissues: Unremarkable. Lung apices: Clear. CAROTID STENOSIS REFERENCE USING NASCET CRITERIA: % ICA stenosis = (1 - narrowest ICA diameter/diameter of distal cervical ICA) x 100. Mild - <50% stenosis. Moderate - 50-69% stenosis. Severe - 70-94% stenosis. Near occlusion - 95-99% stenosis. Occluded - 100% stenosis. IMPRESSION: No dissection, hemodynamically significant stenosis, or occlusion. Electronically signed by: Rebecca Hargrove M.D. 08/26/24 20:31 PM Code Status & VTE Plan VTE Prophylaxis Plan VTE Prophylaxis will be ordered: Yes PG Care Time/CCT Total # of Minutes Spent Total Time Spent with Patient: Total time spent is greater than 50% in coordination of care (as documented) at patient's floor/unit and/or counseling patient: Coding Level of Care Code 26617 INT INP/OBS CARE MIN Diagnoses Weakness R53.1 Bipolar 1 disorder F31.9
--- NOTE | 2024-08-26 20:28 | CT Scan Report ---
Exam(s): CTA HEAD With Contrast IV Amt: 116ML OPTIRAY 320 EXAM: CT Angiography Head With Intravenous Contrast CLINICAL HISTORY: Reason for exam: weakness, right facial, fall. TECHNIQUE: Axial computed tomographic angiography images of the head with intravenous contrast. CTDI is 18 mGy and DLP is 347 mGy-cm. Automated exposure control was utilized for the study. A dose lowering technique was utilized adhering to the principles of ALARA. MIP reconstructed images were created and reviewed. CONTRAST: Patient received 116ML OPTIRAY 320 of IV contrast COMPARISON: CT head 08/26/24 FINDINGS: Right internal carotid artery: No acute findings. Intracranial segment is patent with no significant stenosis. No aneurysm. Right anterior cerebral artery: Unremarkable. No occlusion or significant stenosis. No aneurysm. Right middle cerebral artery: Unremarkable. No occlusion or significant stenosis. No aneurysm. Right posterior cerebral artery: Unremarkable. No occlusion or significant stenosis. No aneurysm. Right vertebral artery: Unremarkable as visualized. Left internal carotid artery: No acute findings. Intracranial segment is patent with no significant stenosis. No aneurysm. Left anterior cerebral artery: Unremarkable. No occlusion or significant stenosis. No aneurysm. Left middle cerebral artery: Unremarkable. No occlusion or significant stenosis. No aneurysm. Left posterior cerebral artery: Unremarkable. No occlusion or significant stenosis. No aneurysm. Left vertebral artery: Unremarkable as visualized. Basilar artery: Unremarkable. No occlusion or significant stenosis. No aneurysm. IMPRESSION: Patent intracranial circulation. Electronically signed by: Rebecca Hargrove M.D. 08/26/24 20:28 PM
--- NOTE | 2024-08-26 20:32 | CT Scan Report ---
Exam(s): CTA NECK With Contrast IV Amt: 116ML OPTIRAY 320 EXAM: CT Angiography Neck With Intravenous Contrast CLINICAL HISTORY: Reason for exam: weakness, right facial, fall. TECHNIQUE: Routine carotid CT angiography protocol was performed with intravenous contrast. NASCET criteria using the distal ICAs for comparison were used for evaluation of stenoses. CTDI is hand additional 18 mGy and DLP is 347 mGy-cm. Automated exposure control was utilized for the study. A dose lowering technique was utilized adhering to the principles of ALARA. MIP reconstructed images were created and reviewed. CONTRAST: Patient received 116ML OPTIRAY 320 of IV contrast COMPARISON: None. FINDINGS: VASCULATURE: Right common carotid artery: Unremarkable. No occlusion or significant stenosis. No dissection. Right internal carotid artery: Unremarkable. Extracranial segment is patent with no occlusion or significant stenosis. No dissection. Right external carotid artery: Unremarkable. No occlusion. Right vertebral artery: Unremarkable. No occlusion or significant stenosis. No dissection. Left common carotid artery: Unremarkable. No occlusion or significant stenosis. No dissection. Left internal carotid artery: Unremarkable. Extracranial segment is patent with no occlusion or significant stenosis. No dissection. Left external carotid artery: Unremarkable. No occlusion. Left vertebral artery: Unremarkable. No occlusion or significant stenosis. No dissection. Aorta: Conventional aortic arch branch anatomy. NECK: Bones/joints: Unremarkable. No acute fracture. Soft tissues: Unremarkable. Lung apices: Clear. CAROTID STENOSIS REFERENCE USING NASCET CRITERIA: % ICA stenosis = (1 - narrowest ICA diameter/diameter of distal cervical ICA) x 100. Mild - <50% stenosis. Moderate - 50-69% stenosis. Severe - 70-94% stenosis. Near occlusion - 95-99% stenosis. Occluded - 100% stenosis. IMPRESSION: No dissection, hemodynamically significant stenosis, or occlusion. Electronically signed by: Rebecca Hargrove M.D. 08/26/24 20:31 PM
[2024-08-26] MEDS ORDERED: ACETAMINOPHEN 325 MG TAB PO PRN (21:41)
[2024-08-26] MEDS ORDERED: ONDANSETRON INJ 2 MG/ML 2 ML VIAL IV PRN (21:41)
--- NOTE | 2024-08-26 22:18 | Magnetic Resonance Report ---
Exam(s): MRI HEAD Without Contrast EXAM: MR Head Without Intravenous Contrast CLINICAL HISTORY: Reason for exam: weakness, fall. TECHNIQUE: Magnetic resonance images of the head/brain without intravenous contrast in multiple planes. COMPARISON: CT head 08/26/24 FINDINGS: Brain: No diffusion restriction to suggest acute cerebral ischemia. No acute intracranial hemorrhage. No mass-effect or shift. Proximal intracranial flow voids appear normal. Generalized parenchymal volume loss. Patchy regions of FLAIR signal hyperintensity in the cerebral white matter in keeping with mild chronic small vessel ischemic change. Ventricles: Unremarkable. No hydrocephalus. Bones/joints: Unremarkable. No acute fracture. Sinuses: Unremarkable as visualized. Mastoid air cells: Unremarkable as visualized. No mastoid effusion. Orbits: Unremarkable as visualized. IMPRESSION: No acute findings in the head/brain. Electronically signed by: Rebecca Hargrove M.D. 08/26/24 22:17 PM
[2024-08-26] MEDS: risperiDONE 0.5 MG TABLET PO SCH (23:39)
[2024-08-26] MEDS: clonazePAM 1 MG TAB PO SCH (23:39)
--- OUTSIDE RECORDS SUMMARY | 2024-08-27 02:36 | External Medical Summary | Continuity of Care Document ---
Author Name Unknown Organization [facility] [address] Address [address] [place], [place] [id number] Care Team Providers Care Collection Advisor Name Role Phone Angel Patricia Olson Primary Care P shavon [phone] [id number] Date[facility]s): 07/20/24 - 07/20/24 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) - Discharge Disposition: Home or Self Care Attending Physician: ELVIA Caban Rebecca Referring Physician: ELVIA Caban Rebecca Allergies, Adverse Reactions, Alerts Substance Criticality Severity Reaction Reaction Severity Status PCN (penicillin) Rash Act ramon Immunizations Given and Recorded Vaccine Date Status Refusal Reason SARS-CoV-2 (COVID-19) mRNA BNT-162b2 vax 1 11/06/20 Recorded SARS-CoV-2 (COVID-19) mRNA BNT-162b2 vax 2 10/16/20 Recorded 1Result Comment: 2021-05-15: Historical information-source unspecified 2Result Comment: 2021-05-15: Historical information-source unspecified Medications clonazePAM 0.25 mg oral tablet, disintegrating Start: 11/08/18 1:35:00 PM EDT, 1 tab, PO, qhs, Disp# 30 tab, Refills: 0 Start Date: 11/08/18 Stop Date: 12/08/18 Status: Ordered lisinopril 10 mg oral tablet Start: 05/26/24 2:40:00 PM EDT, 1 tab, PO, Daily, Disp# 90 tab, Refills: 3, Pharmacy: [id number] Start Date: 05/26/24 Stop Date: 05/21/25 Status: Ordered RisperDAL 1 mg oral tablet Start: 11/08/18 1:34:23 PM EDT, 1 tab, PO, bid, Disp# 60 tab, Refills: 0, Pharmacy: [id number] Start Date: 11/08/18 Stop Date: 12/08/18 Status: Ordered Problem List Condition Confirmation Course Effective Dates Status H ealth Status Informant Essential hypertension Confirmed Active Hyperlipidemia Confirmed Active Bipolar 1 disorder, manic, moderate Confirmed Active Results Laboratory List Name Date Comprehensive Metabolic Panel (COMP META B PANEL) 07/20/24 Lipid Profile (LIPOPROTEINS) 07/20/24 Request to FAX Report (First Location) ( ACC NO TO BE FAXED) 07/20/24 Most recent to oldest [Reference Range]: 1 eGFR CKD-EPI [>60 mL/min/1.73 m2] 86 mL/ min/1.73 m2 1 (07/20/24 1:01 PM) Non-HDL 160 mg/dL 2 (07/20/24 1:01 PM) Estimated CrCl 58.79 mL/min (07/20/24 1:54 PM) Phone No [phone] (07/20/24 1:01 PM) Faxed on: 07/21/24 08:37 (07/20/24 1:01 PM) Anion Gap [5-14 mmol/L] 13 mmol/L (07/20/24 1:01 PM) Alb [3.5-5.0 g/dL] 4.2 g/dL (07/20/24 1:01 PM) Alk Phos [38-126 unit/L] 107 unit/L (07/20/24 1:01 PM) ALT [<35 unit/L] 15 unit/L (07/20/24 1:01 PM) AST [15-46 unit/L] 18 unit/L (07/20/24 1:01 PM) BUN [7-20 mg/dL] 16 mg/dL (07/20/24 1:01 PM) Ca [8.4-10.2 mg/dL] 9.3 mg/dL (07/20/24 1:01 PM) Chol/HDL 4 (07/20/24 1:01 PM) Chol [125-200 mg/dL] 207 mg/dL *HI* (07/20/24 1:01 PM) Cl- [96-107 mmol/L] 102 mmol/L (07/20/24 1:01 PM) HCO3 [22-30 mmol/L] 27 mmol/L (07/20/24 1:01 PM) Cret [0.60-1.00 mg/dL] 0.72 mg/dL (07/20/24 1:01 PM) Glu [74-106 mg/dL] 117 mg/dL *HI* (07/20/24 1:01 PM) HDL [>35 mg/dL] 47 mg/dL (07/20/24 1:01 PM) K [3.5-5.1 mmol/L] 3.7 mmol/L (07/20/24 1:01 PM) LDL Chol, Calculated [50-130 mg/dL] 135 mg/dL *HI* (07/20/24 1:01 PM) Na [137-145 mmol/L] 142 mmol/L (07/20/24 1:01 PM) T Bili [0.2-1.3 mg/dL] 0.8 mg/dL (07/20/24 1:01 PM) Prot [6.3-8.2 g/dL] 8.1 g/dL (07/20/24 1:01 PM) TG [<200 mg/dL] 125 mg/dL (07/20/24 1:01 PM) 1Result Comment: Testing Performed By: Dept of Pathology [facility] Cherie Andrade, [address] [place] [address], [place] [address] 2Result Comment: Testing Performed By: Dept of Pathology [facility] Cherie Andrade, [address] [place] [address], [place] [address] 3Result Comment: Testing Performed [facility], [address] [place] [address], [place] [address] Social History Social History Type Response Smoking Status Never smoked cigaret qing Sex Female Sex Representation Female (finding) Patient Care team information Care Team Personnel Name: Jeanne Olson DO, Mariana Annette Position: Physician - Family Med Member Role: Primary Care Provider Address: [address] [place] [address]
--- OUTSIDE RECORDS SUMMARY | 2024-08-27 02:36 | External Medical Summary | Continuity of Care Document ---
Author Name Unknown Organization [facility] [address] [place] [address] [place], [place] [address] [place], [place] [id number] Care Team Providers Care Nougat Cutter Machine Name Role Phone Patricia Shipley Primary Care P hysician [phone] Encounter [facility] [id number] Date(s): 05/26/24 - 05/26/[address] Jos [address], [address] [place] [address] [phone] Encounter Diagnosis Essential hypertension(Discharge Diagnosis) - 05/26/24 Hyperlipidemia(Discharge Diagnosis) - 05/26/24 Bipolar 1 disorder, manic, moderate(Discharge Diagnosis) - 05/26/24 Body mass index [BMI] 21.0-21.9, adult(Discharge Diagnosis) - 05/26/24 Immunization declined(Discharge Diagnosis) - 05/26/24 Discharge Disposition: Home or Self Care Attending Physician: Jeanne Olson DO, Mariana Annette Referring Physician: Jeanne Olson DO, Mariana Annette Allergies, Adverse Reactions, Alerts Substance Criticality Severity Reaction Reaction Severity Status PCN (penicillin) Rash Act ramon Assessment and Plan Extracted from: Title:Office Visit Note Author:Jeanne Olson DO, Mariana Annette Date:05/26/24 1.Essential hypertension STATUS:Chronic stable. DATA:Labs reviewed. GOAL:Maintain stability. PLAN:Cont lisinopril 10mg, update BMP . 2.Hyperlipidemia STATUS:Chronic stable. DATA:Labs reviewed. GOAL:Maintain stability. PLAN:Check lipids 3.Bipolar 1 disorder, manic, moderate STATUS:Chronic stable. GOAL:Maintain stability. PLAN:Cont management per psychiatry . 4.Immunization declined f/u 1 yr. Immunizations Given and Recorded Vaccine Date Status [...] Daily, Disp# 90 tab, Refills: 3, Pharmacy: [id number] Start Date: 05/26/24 Stop Date: 05/21/25 Status: Ordered RisperDAL 1 mg oral tablet Start: 11/08/18 1:34:23 PM EDT, 1 tab, PO, bid, Disp# 60 tab, Refills: 0, Pharmacy: [facility] [id number] Start Date: 11/08/18 Stop Date: 12/08/18 Status: Ordered Mental Status 05/26/24 Barriers to Learning one year None evide nt Mandatory Health Literacy Documentation Yes Health Literacy Communication Barriers N ever Primary Language Afghan Problem List Condition Confirmation Course Effective Dates Status H ealth Status Informant Essential hypertension Confirmed Active Hyperlipidemia Confirmed Active Bipolar 1 disorder, manic, moderate Confirmed Active Diagnosis Diagnosis Type Effective Dates Health Status Clinical Service Informant Hyperlipidemia Discharge Diagnosis 05/26/24 Non-Specified Essential hypertension Discharge Diagnosis 05/26/24 Non-Specified Bipolar 1 disorder, manic, moderate Discharge Diagnosis 05/26/24 Non-Specified Body mass index [BMI] 21.0-21.9, adult Discharge Diagnosis 05/26/24 Non-Specified Immunization declined Discharge Diagnosis 05/26/24 Non-Specified Vital Signs Most recent to oldest [Reference Range]: 1 Height 165 cm (05/26/24 2:21 PM) Patient Weight 58.6 kg (05/26/24 2:21 PM) Body Mass Index 21.52 kg/m2 (05/26/24 2:21 PM) Temperature [36.5-37.9 DegC] 35.5 DegC *LOW* (05/26/24 2:21 PM) Heart Rate 110 bpm (05/26/24 2:21 PM) Respiratory Rate 18 br/min (05/26/24 2:21 PM) Blood Pressure 128/96mmHg (05/26/24 2:21 PM) Cuff Pulse Pressure 32 mmHg (05/26/24 2:21 PM) Social History Social History Type Response Smoking Status Never smoked cigaret qing Sex Female Sex Representation Female (finding) FCM Outpt Note * Jeanne Olson DO, Mariana Annette: PERFORM Event Display: FCM Outpt Note Authored Date: [id number] Chief Complaint cpe- bp check History of Present Illness Presents for chronic condition management HTN - doing well, does not check at home, no dizziness, CP or SOB. Bipolar disorder - folows with psych, stable. Health Maintenance: - Colon CA screening: >75 - Cervical CA screening: >75 - Breast CA screening: declines - Hep Cscreening: declines - DEXA scan: declines - Immunizations: declines No hospitalizations in the last 12 months nor severe acute injuries not accounted for in chart. Routine dental care without complaint Routine eye care without issue presently,noglasses/contacts Vaccination schedule reviewed in EHR Histories updated and reviewed with patient with changes reflected. Feeling safe at home and in relationships without concern. 10 system ROS completed and negative except as noted above. Physical Exam Vitals & Measurements T:35.5C HR:110(Monitored) RR:18 BP:128/96 SpO2:98% HT:165cm WT:58.600kg(Dosing) WT:58.6kg BMI:21.52 PHQ2 Data(Data Documented on:05/26/2024 14:21) Emotional health assessment NEGATIVE General: _Alert and oriented, No acute distress, resting tremor Cardiovascular: _Normal rate, Regular rhythm, No murmur, No gallop. Respiratory: _Lungs are clear to auscultation, Respirations are non-labored, Breath sounds are equal Psych: flat affect. Reports no SI/HI. Speech is of normal pace and content Assessment/Plan 1.Essential hypertension STATUS:Chronic stable. DATA:Labs reviewed. GOAL:Maintain stability. PLAN:Cont lisinopril 10mg, update BMP . 2.Hyperlipidemia STATUS:Chronic stable. DATA:Labs reviewed. GOAL:Maintain stability. PLAN:Check lipids 3.Bipolar 1 disorder, manic, moderate STATUS:Chronic stable. GOAL:Maintain stability. PLAN:Cont management per psychiatry . 4.Immunization declined f/u 1 yr. Attestation Time spent: Pre-visit planning: _5 Ifiy-xw-ohxn visit: _20 Post-visit (orders/documentation/coordination of care):5 Total visit time: _30 Problem List/Past Medical History Ongoing Bipolar 1 disorder, manic, moderate Essential hypertension Hyperlipidemia Medications clonazePAM(clonazePAM 0.25 mg oral tablet, disintegrating), 0.25 mg= 1 tab, PO, qhs lisinopril(lisinopril 10 mg oral tablet), 10 mg= 1 tab, PO, Daily, 3 refills risperiDONE(RisperDAL 1 mg oral tablet), 1 mg= 1 tab, PO, bid Allergies PCN (penicillin)Rash Social History Smoking Status Never smoked cigarettes Immunizations Vaccine Date Status SARS-CoV-2 (COVID-19) mRNA BNT-162b2 vax 11/06/2020 Recorded Comments : 2021-05-15: Historical information-source unspecified SARS-CoV-2 (COVID-19) mRNA BNT-162b2 vax 10/16/2020 Recorded Comments : 2021-05-15: Historical information-source unspecified Recommendations Health Maintenance Pending(in the next year) OverDue Medicare Annual Wellness Visit due05/19/23and every 1year Adult Influenza Vaccine due02/14/24and every 1year Due Adult COVID-19 Vaccination due05/26/24Unknown Frequency Adult Social Determinants of Health Screening due05/26/24Unknown Frequency Adult Tdap/Td Vaccine due05/26/24Unknown Frequency Hepatitis C Screening due05/26/24One-time only Osteoporosis Screening due05/26/24One-time only Pneumococcal Vaccine Older Adults due05/26/24One-time only Shingles Vaccine due05/26/24One-time only Satisfied(in the past 1 year) Satisfied Body Mass Index on05/26/24.Satisfied by YOUSUF Meraz Angela Lipid Screening on06/10/23.Satisfied by Contributor_system, Remember The Member Electronic Signature on File Electronically Reviewed/Signed by: Patricia Olson DO Author Signature Dt/Tm:05/26/2024 02:53 PM Department of Family Medicine [facility] Patient Care team information Care Team Personnel Name: Jeanne Olson DO, Mariana Annette Position: Physician - Family Med Member Role: Primary Care Provider Address: [address] [place] [address]
[2024-08-27] MEDS: SODIUM CHLORIDE 0.9% 1,000 ML IV SCH (04:17)
[2024-08-27 07:29] LABS: Hematocrit (blood only) 35.8 % (37.0-47.0); Hemoglobin 11.2 g/dl (12.0-16.0); Mean Corpuscular Hemoglobin 29.5 pg (25.0-34.0); Mean Corpuscular Hgb Conc 31.3 g/dL (32.0-36.0); Mean Corpuscular Volume 94.2 fL (80.0-100.0); Mean Platelet Volume 10.6 fL (9.4-12.4); Platelet Count 221 K/uL (130-400); RDW Coefficient of Variation 13.1 % (11.5-14.5); RDW Standard Deviation 44.8 fL (36.4-46.3); White Blood Count 7.85 K/ul (4.8-10.8)
[2024-08-27] MEDS: lisinopril 10 MG TAB PO SCH (07:58)
[2024-08-27] MEDS: clonazePAM 0.25 MG OD TAB PO SCH (08:01)
[2024-08-27 08:03] LABS: BUN Creatinine Ratio 35.6 (10-20); Calcium 8.1 mg/dl (8.6-10.3); Creatinine Clr Calc Pharmacy 67.9 ml/min; Potassium 3.6 mmol/L (3.5-5.1)
--- NOTE | 2024-08-27 14:14 | Hospitalist Progress Note ---
Date of Service August 27, 2024 Assessment & Plan (1) Dyskinesia: Plan: This is a 79yo female with progressive decline over the last several years presenting after sustaining an unwitnessed fall 9 days ago with head trauma. Family endorses some progressive decline since the fall including right facial droop, ambulatory dysfunction, possibly right sided weakness, poor PO intake and difficulty swallowing. On exam, patient has demonstrable rigidity and dyskinesia This is likely from the effect of her antipsychotic meds will consult psychiatry to help with medication mgt (2) Weakness: Plan: -Etiology is multifactorial, effect of medication -MRI brain did not show any acute pathology -PT/OT -Speech and swallow evaluation -Fall precautions -Urine culture -Tylenol as needed for pain and fever (3) Bipolar 1 disorder: Plan: Patient has had 2 prior hospitalizations in 2019 for Bipolar/freedom and anxiety. She follows with Psychiatry. Currently taking Risperidone 0.5mg po BID and Clonazepam 1mg po qHS and 0.5mg po BID. Family voices concern for patient being overmedicated - state that since being on these medications they have noted a progressive functional decline. -Workup and treatment of any acute, medical causes for patient's decline - mainly considering CVA, dehydration, possible UTI. -Will place Psychiatry consultation for re-evaluation of patient's medications. -For now will continue her Risperdal 0.5mg po BID and her PM Clonazepam 1mg -Will reduce her daily Clonazepam to 0.25mg po BID -Patient may benefit from being slowly weaned off Clonazepam entirely - consider treatment with Hydroxyzine as needed for anxiety -Could consider treatment with Seroquel 200mg po qHS + Prozac 10mg for her Bipolar/ISIDRA or use of Zyprexa 5mg po qHS + Prozac 10mg po qAM -Will defer to Psychiatry -Patient would also benefit from dementia screening once acute medical issues have been addressed (4) Akathisia: Plan: most likely secondary to psych meds Plan await psych eval continue hospitalization Admission and Anticipated Discharge Date Admission Date: August 26, 2024 Subjective patient seen and examined, speech is difficult to understand due to dystonia Review of Systems Review of Systems: unreliable Physical Exam Physical Exam: The patient is awake, alert and oriented 3,dystonic HEENT--PERRL, EOMI, mucous membranes and oropharynx mildly dry Neck--supple. No JVD. No bruits. Thyroid normal, trachea midline, no adenopathy. Heart--normal S1 and S2. No murmurs, rubs or gallops. Lungs--clear bilaterally, no respiratory distress, no accessory muscle use. Abdomen--normal bowel sounds and soft. Extremities--no cyanosis or clubbing. No edema. Dermatologic--normal skin turgor, normal color, no abnormal lymph nodes, no rash. Neurologic--rigidity and dystonic Rheumatologic--normal range of motion. Psychiatric--normal affect. Results & Data Results & Data Vital Signs (Past 12 Hours) Vital Signs Temp Pulse Resp BP Pulse Ox O2 Del Method 08/27/24 08:20 97.7 F 72 18 122/74 97 Room Air 08/27/24 08:00 Room Air PG Care Time/CCT Total # of Minutes Spent Total Time Spent with Patient: Total time spent is greater than 50% in coordination of care (as documented) at patient's floor/unit and/or counseling patient: Coding Level of Care Code 25378 SUB INP/OBS CARE 2/35MIN Diagnoses Dyskinesia G24.9 Weakness R53.1 Bipolar 1 disorder F31.9 Akathisia G25.71 Time Spent (min) 35
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
--- NOTE | 2024-08-27 20:07 | Psychiatric Consultation ---
Date of Consultation August 27, 2024 Impression / Recommendations Impression Bipolar 1 Disorder, current episode unspecified. r/o Mild Cognitive Impairment. Plan Given known association of benzodiazepines with falls, cognitive impairment and confusion in the elderly, agree with plan to taper clonazepam to minimum necessary dose. Recommend medical team consider a further reduction of clonazepam after 24 hours on current dose to 0.25mg bid + 0.5mg qhs. Maintain Risperidone at current dose of 0.5mg bid. Ensure follow up with OP psychiatrist to monitor response. Above discussed with RN. Psych History Identifying Data 79yo female with a psychiatric history of Bipolar Disorder, ISIDRA, and progressive decline over the last several years presenting after sustaining an unwitnessed fall 9 days ago with head trauma. Psychiatry was consulted to evaluate her medication, as family reports significant side effects since the medication was started in 04/2019. Medication home doses: Klonopin 0.5mg bid + 1mg qhs, Risperidone 0.5mg daily + 1mg qhs. Chief Complaint "[I am doing ok]". History of Present Illness Background & Medical Summary Per medical record, "pt presents from home with generalized weakness and ambulatory dysfunction, following an unwitnessed fall on 08/17/24 with trauma to the left side of her face. Her family reports since then she has had more weakness (possibly more on the right side) as well as a slight right facial droop, difficulty ambulating and coughing with meals. Pt has experienced Increased fatigue - sleeps throughout the day. Per medical team records, her reports that she is more afraid to get up and ambulate due to her recent fall. Prior to her fall on 08/17/24 she was able to climb up stairs but has not been doing that anymore.She has had decreased appetite and poor oral intake since 08/17/24. Patient reports some headache. Fever noted by EMS en route TM = 100.9 Otherwise, no chest pain, cough, SOB, abdominal pain, nausea, vomiting, diarrhea or constipation.She has chronic dysarthria but seems to have a new right facial droop and right sided weakness. Family voices additional concern about patient's psychiatric meds. They report that since being on her Psychiatric medications since 2019 she has "been a zombie" and has had significant loss of function, decreased strength and activity". Upon interview, pt reports she is stable in terms of her mood, denied psychotic symptoms and denied any current concerns related to her psychiatric diagnoses. She specifically denied SI/HI, A/V hallucinations, delusions. She was cooperative, alert, oriented grossly to place and time and did not evidence signs of freedom, depression or altered mental status. Of note, medical team had adjusted her medications as follows: Klonopin reduced to 0.25mg bid + 1mg qhs, Risperidone reduced to 0.5mg bid. Past Psychiatric History Previous Psych History: Several admissions to [facility], most recently 04/2019 when she was discharged on current meds. Per chart review, she has had other prior admissions and has a remote trauma history. Current Psychiatric Diagnosis: Bipolar Disorder Outpatient Services: Psych follow up by primary care. Previous Psych Admissions: Several admissions at this facility. Do You Have Access To A Gun?: No History of Previous Suicide Attempt: No Past Medication Trials: Zoloft. Allergies Allergy/AdvReac Type Severity Reaction Status Date / Time Penicillins Allergy Unknown rash Verified 03/30/19 16:17 Home Medications Medication Instructions Recorded Confirmed Type lisinopril 10 mg PO DAILY 03/30/19 03/30/19 History clonazepam 0.5 mg tablet 0.5 mg PO BID@0900,1600 #60 tabs 05/06/19 Rx clonazepam 1 mg tablet 1 mg PO HS #30 tabs 05/06/19 Rx risperidone 0.5 mg tablet 0.5 mg PO QAM #30 tabs 05/06/19 Rx risperidone 1 mg tablet 1 mg PO HS #30 tabs 05/06/19 Rx Patient History Medical History (Updated 08/27/24 @ 14:08 by Cici Phipps MD) Hypertension Generalized anxiety disorder Bipolar 1 disorder with moderate freedom Surgical History H/O: hysterectomy (~1979) Family History Other Cancer Social History Smoking Status: Never smoker Second Hand Exposure: No; Do You Dip or Chew Tobacco: No; Hx Alcohol Use: No Hx Substance Use: No Preferred Language: Khmer Communication Ability: Effective Visual Impairment: No Limitations Hearing Ability: Normal Photonics Engineering Technologist Required: No Beliefs That Will Affect Care: None marital status: Current Living Situation: Spouse current occupational status: retired Feels Safe at Home: Yes Assistive Devices: Hospital Bed Physical Exam Psychiatric: A+Ox3, euthymic affect Orientation: alert, oriented to person, oriented to place, oriented to time and cooperative Apperance: + disheveled Grimacing in pain. r/o TD (tongue protrusion) Eye Contact: good eye contact Facial grimacing. Low tone,soft, dysarthric. Affect: + anxious affect and + flat affect Mood: + anxious mood Thought Process: goal directed thought process, linear/logical thought process and clear/coherent thought process Thought Content: reality based without delusions Suicidal Thoughts: denies suicidal thoughts, denies suicidal plan and denies suicidal intent Homicidal Thoughts: denies homicidal thoughts, denies homicidal plan and denies homicidal intent Cognition: recent memory grossly intact and attention grossly intact Estimated Intelligence: average estimated intelligence Insight: good insight Judgment: good judgement Vital Signs (Past 24 Hours): Last Vital Signs Temp 36.2 C L 08/27/24 15:02 Pulse 81 08/27/24 15:02 Resp 16 08/27/24 15:02 BP 125/77 08/27/24 15:02 Pulse Ox 95 08/27/24 15:02 O2 Del Method Room Air 08/27/24 15:02 Results & Data (PSY) Medications Administered Clonazepam (Clonazepam 0.25 Mg Od Tab) 0.25 mg PO BID@0900,1600 [facility] Stop: 09/26/24 08:59 Last Admin: 08/27/24 15:59 Dose: 0.25 mg Documented By: Admin: 08/27/24 08:01 Dose: 0.25 mg Documented By: DELORES Clonazepam (Clonazepam 1 Mg Tab) 1 mg PO HS PILI Stop: 09/25/24 23:29 Last Admin: 08/26/24 23:39 Dose: 1 mg Documented By: JING Sodium Chloride (Nss) 1,000 mls @ 100 mls/hr IV .Q10H PILI Stop: 08/28/24 03:40 Last Admin: 08/27/24 14:07 Dose: 100 mls/hr Documented By: Infusion: 08/27/24 14:07 Dose: Infused Documented By: Admin: 08/27/24 04:17 Dose: 100 mls/hr Documented By: JING Lisinopril (Lisinopril 10 Mg Tab) 10 mg PO DAILY PILI Stop: 09/26/24 08:59 Last Admin: 08/27/24 07:58 Dose: 10 mg Documented By: DELORES Risperidone (Risperidone 0.5 Mg Tablet) 0.5 mg PO BID PILI Stop: 09/25/24 23:14 Last Admin: 08/27/24 07:58 Dose: 0.5 mg Documented By: Admin: 08/26/24 23:39 Dose: 0.5 mg Documented By: JING [place] [address] IN/OBS CONSULT LVL 2,35M Patient Type New Medical Decision Making Straight Forward Time Spent (min) 60 General (ED) Blank Date of Service August 27, 2024 Note/Exam/Outcome Date of Service August 27, 2024 General General: + alert
[2024-08-28 10:44] LABS: Appearance Urine Clear (Clear); Bacteria Urine Automated 4+ (None Seen); Bilirubin Urine Negative (Negative); Blood Urine Trace (Negative); Cast Urine Automated 0-2 /lpf (0-2); Color Urine Yellow; Epithelial Cell Urine Auto 0-2 /hpf (0-2); Glucose Urine UA Negative (Negative); Ketones Urine Negative (Negative); Leukocyte Esterase Urine Negative (Negative); Nitrite Urine Positive (Negative); Protein Urine Negative (Negative); RBC Urine Automated 0-2 /hpf (0-2); Specific Gravity Urine 1.027 (1.000-1.030); Urobilinogen Urine Negative (Negative); WBC Urine Automated 0-5 /hpf (0-5)
--- NOTE | 2024-08-28 13:52 | Hospitalist Progress Note ---
Date of Service August 28, 2024 Assessment & Plan (1) Dyskinesia: Plan: This is a 79yo female with progressive decline over the last several years presenting after sustaining an unwitnessed fall 9 days ago with head trauma. Family endorses some progressive decline since the fall including right facial droop, ambulatory dysfunction, possibly right sided weakness, poor PO intake and difficulty swallowing. On exam, patient has demonstrable rigidity and dyskinesia This is likely from the effect of her antipsychotic meds will continue to taper down clonazepam. currently on 0.25mg BID, and 0.5mg HS Appreciate Psych recs (2) Weakness: Plan: -Etiology is multifactorial, effect of medication -MRI brain did not show any acute pathology -PT/OT -Speech and swallow evaluation -Fall precautions -Urine culture -Tylenol as needed for pain and fever (3) Bipolar 1 disorder: Plan: Patient has had 2 prior hospitalizations in 2019 for Bipolar/freeodm and anxiety. She follows with Psychiatry. Currently taking Risperidone 0.5mg po BID and Clonazepam 1mg po qHS and 0.5mg po BID. Family voices concern for patient being overmedicated - state that since being on these medications they have noted a progressive functional decline. -Workup and treatment of any acute, medical causes for patient's decline - mainly considering CVA, dehydration, possible UTI. -For now will continue her Risperdal 0.5mg po BID and her PM Clonazepam 0.5mg HS -Will reduce her daily Clonazepam to 0.25mg po BID -appreciate psych (4) Akathisia: Plan: most likely secondary to psych meds Plan continue hospitalization Admission and Anticipated Discharge Date Admission Date: August 26, 2024 Subjective patient seen and examined, speech is difficult to understand due to dystonia, but she says she feels fine Review of Systems Review of Systems: unreliable Physical Exam Physical Exam: The patient is awake, alert and oriented 3,dystonic HEENT--PERRL, EOMI, mucous membranes and oropharynx mildly dry Neck--supple. No JVD. No bruits. Thyroid normal, trachea midline, no adenopathy. Heart--normal S1 and S2. No murmurs, rubs or gallops. Lungs--clear bilaterally, no respiratory distress, no accessory muscle use. Abdomen--normal bowel sounds and soft. Extremities--no cyanosis or clubbing. No edema. Dermatologic--normal skin turgor, normal color, no abnormal lymph nodes, no rash. Neurologic--rigidity and dystonic Rheumatologic--normal range of motion. Psychiatric--normal affect. Results & Data Results & Data Vital Signs (Past 12 Hours) Vital Signs Temp Pulse Resp BP Pulse Ox O2 Del Method 08/28/24 08:12 98.1 F 91 H 18 152/81 H 96 Room Air PG Care Time/CCT Total # of Minutes Spent Total Time Spent with Patient: Total time spent is greater than 50% in coordination of care (as documented) at patient's floor/unit and/or counseling patient: Coding Level of Care Code 06676 SUB INP/OBS CARE 2/35MIN Diagnoses Dyskinesia G24.9 Weakness R53.1 Bipolar 1 disorder F31.9 Akathisia G25.71 Time Spent (min) 35
[2024-08-28] MEDS: clonazePAM 0.5 MG TAB PO SCH (21:07)
--- NOTE | 2024-08-28 21:47 | Electrocardiogram Report ---
Test Reason : Blood Pressure : */* mmHG Vent. Rate : 76 BPM Atrial Rate : 76 BPM P-R Int : 110 ms QRS Dur : 76 ms QT Int : 392 ms P-R-T Axes : 70 64 59 degrees QTcB Int : 441 ms Sinus rhythm with short IA Otherwise normal ECG When compared with ECG of 01-Oct-2018 09:23, No significant change was found Confirmed by Buck Langley ([id number]) on 08/28/2024 9:46:58 PM Referred By: REFERRED SELF Confirmed By: Buck Langley
[2024-08-29] MEDS: cefTRIAXone SODIUM 1,000 MG/50 ML BAG IV SCH (09:16)
--- NOTE | 2024-08-29 12:40 | Hospitalist Progress Note ---
Date of Service August 29, 2024 Assessment & Plan (1) Dyskinesia: Plan: This is a 79yo female with progressive decline over the last several years presenting after sustaining an unwitnessed fall 9 days ago with head trauma. Family endorses some progressive decline since the fall including right facial droop, ambulatory dysfunction, possibly right sided weakness, poor PO intake and difficulty swallowing. On exam, rigidity and dyskinesia much improved today This is likely from the effect of her antipsychotic meds will continue to taper down clonazepam. currently on 0.25mg BID, and 0.5mg HS Appreciate Psych recs I think patient can now participate reasonable with PT (2) Weakness: Plan: -Etiology is multifactorial, effect of medication -MRI brain did not show any acute pathology -PT/OT -Speech and swallow evaluation -Fall precautions -Urine culture -Tylenol as needed for pain and fever (3) Bipolar 1 disorder: Plan: Patient has had 2 prior hospitalizations in 2019 for Bipolar/freedom and anxiety. She follows with Psychiatry. Currently taking Risperidone 0.5mg po BID and Clonazepam 1mg po qHS and 0.5mg po BID. Family voices concern for patient being overmedicated - state that since being on these medications they have noted a progressive functional decline. -Workup and treatment of any acute, medical causes for patient's decline - mainly considering CVA, dehydration, possible UTI. -For now will continue her Risperdal 0.5mg po BID and her PM Clonazepam 0.5mg HS -Will reduce her daily Clonazepam to 0.25mg po BID -appreciate psych (4) Akathisia: Plan: most likely secondary to psych meds Plan continue hospitalization, PT eval pending Admission and Anticipated Discharge Date Admission Date: August 26, 2024 Subjective patient seen and examined, no new complaints today Review of Systems Review of Systems: All systems reviewed are negative, apart from the ones contained in the history. Physical Exam Physical Exam: The patient is awake, alert and oriented 3,dystonic HEENT--PERRL, EOMI, mucous membranes and oropharynx mildly dry Neck--supple. No JVD. No bruits. Thyroid normal, trachea midline, no adenopathy. Heart--normal S1 and S2. No murmurs, rubs or gallops. Lungs--clear bilaterally, no respiratory distress, no accessory muscle use. Abdomen--normal bowel sounds and soft. Extremities--no cyanosis or clubbing. No edema. Dermatologic--normal skin turgor, normal color, no abnormal lymph nodes, no rash. Neurologic--rigidity and dystonic Rheumatologic--normal range of motion. Psychiatric--normal affect. Results & Data Results & Data Vital Signs (Past 12 Hours) Vital Signs Temp Pulse Resp BP Pulse Ox O2 Del Method 08/29/24 11:50 Room Air 08/29/24 07:50 97.5 F L 75 18 135/82 97 Room Air PG Care Time/CCT Total # of Minutes Spent Total Time Spent with Patient: Total time spent is greater than 50% in coordination of care (as documented) at patient's floor/unit and/or counseling patient: Coding Level of Care Code 51212 SUB INP/OBS CARE 2/35MIN Diagnoses Dyskinesia G24.9 Weakness R53.1 Bipolar 1 disorder F31.9 Akathisia G25.71 Time Spent (min) 35
[2024-08-30 08:20] LABS: Hematocrit (blood only) 32.2 % (37.0-47.0); Hemoglobin 10.7 g/dl (12.0-16.0); Mean Corpuscular Hemoglobin 30.1 pg (25.0-34.0); Mean Corpuscular Hgb Conc 33.2 g/dL (32.0-36.0); Mean Corpuscular Volume 90.4 fL (80.0-100.0); Mean Platelet Volume 10.9 fL (9.4-12.4); Platelet Count 201 K/uL (130-400); RDW Standard Deviation 42.7 fL (36.4-46.3); Red Blood Count 3.56 M/uL (4.20-5.40); White Blood Count 7.54 K/ul (4.8-10.8)
[2024-08-30 08:37] LABS: BUN Creatinine Ratio 21.4 (10-20); Calcium 8.5 mg/dl (8.6-10.3); Creatinine Clr Calc Pharmacy 71.6 ml/min; Potassium 3.5 mmol/L (3.5-5.1)
--- NOTE | 2024-08-30 13:06 | Hospitalist Progress Note ---
Date of Service August 30, 2024 Assessment & Plan (1) Dyskinesia: Plan: This is a 79yo female with progressive decline over the last several years presenting after sustaining an unwitnessed fall 9 days ago with head trauma. Family endorses some progressive decline since the fall including right facial droop, ambulatory dysfunction, possibly right sided weakness, poor PO intake and difficulty swallowing. On exam, rigidity and dyskinesia much improved today This is likely from the effect of her antipsychotic meds will continue to taper down clonazepam. currently on 0.25mg BID, and 0.5mg HS Also taper Risperidone, currently 0.5mg BID Appreciate Psych recs patient participating reasonably with PT (2) Weakness: Plan: -Etiology is multifactorial, effect of medication -MRI brain did not show any acute pathology -PT/OT -Speech and swallow evaluation -Fall precautions -Urine culture -Tylenol as needed for pain and fever -strenght is improving patient participating in PT (3) Bipolar 1 disorder: Plan: Patient has had 2 prior hospitalizations in 2019 for Bipolar/freedom and anxiety. She follows with Psychiatry. Currently taking Risperidone 0.5mg po BID and Clonazepam 1mg po qHS and 0.5mg po BID. Family voices concern for patient being overmedicated - state that since being on these medications they have noted a pr ogressive functional decline. -Workup and treatment of any acute, medical causes for patient's decline - mainly considering CVA, dehydration, possible UTI. -For now will continue her Risperdal 0.5mg po BID and her PM Clonazepam 0.5mg HS -Will reduce her daily Clonazepam to 0.25mg po BID -appreciate psych (4) UTI (urinary tract infection): Plan: urinalysis positive for UTI urine cultures growing E coli, full characterization and sensitivity pending continue ceftriaxone for now (5) Akathisia: Plan: most likely secondary to psych meds Plan continue hospitalization, medically stable for SNF when accepted Admission and Anticipated Discharge Date Admission Date: August 26, 2024 Subjective patient seen and examined, no new complaints today Review of Systems Review of Systems: All systems reviewed are negative, apart from the ones contained in the history. Physical Exam Physical Exam: The patient is awake, alert and oriented 3,dystonic HEENT--PERRL, EOMI, mucous membranes and oropharynx mildly dry Neck--supple. No JVD. No bruits. Thyroid normal, trachea midline, no adenopathy. Heart--normal S1 and S2. No murmurs, rubs or gallops. Lungs--clear bilaterally, no respiratory distress, no accessory muscle use. Abdomen--normal bowel sounds and soft. Extremities--no cyanosis or clubbing. No edema. Dermatologic--normal skin turgor, normal color, no abnormal lymph nodes, no rash. Neurologic--rigidity and dystonic Rheumatologic--normal range of motion. Psychiatric--normal affect. Results & Data Results & Data Vital Signs (Past 12 Hours) Vital Signs Temp Pulse Resp BP Pulse Ox O2 Del Method 08/30/24 07:51 98.1 F 81 18 147/81 H 95 Room Air 08/30/24 07:30 Room Air PG Care Time/CCT Total # of Minutes Spent Total Time Spent with Patient: Total time spent is greater than 50% in coordination of care (as documented) at patient's floor/unit and/or counseling patient: Coding Level of Care Code 65104 SUB INP/OBS CARE 2/35MIN Diagnoses Dyskinesia G24.9 Weakness R53.1 Bipolar 1 disorder F31.9 UTI (urinary tract infection) N39.0 Akathisia G25.71 Time Spent (min) 35
[2024-08-31] MEDS: risperiDONE 0.25 MG TAB PO SCH (08:54)
--- NOTE | 2024-08-31 09:35 | Hospitalist Progress Note ---
Date of Service August 31, 2024 Assessment & Plan (1) Dyskinesia: Plan: This is a 79yo female with progressive decline over the last several years presenting after sustaining an unwitnessed fall 9 days ago with head trauma. Family endorses some progressive decline since the fall including right facial droop, ambulatory dysfunction, possibly right sided weakness, poor PO intake and difficulty swallowing. On exam, rigidity and dyskinesia much improved today This is likely from the effect of her antipsychotic meds will continue to taper down clonazepam. currently on 0.25mg BID, and 0.25mg HS Also taper Risperidone, currently 0.25mg BID Appreciate Psych recs patient participating reasonably with PT (2) Weakness: Plan: -Etiology is multifactorial, effect of medication -MRI brain did not show any acute pathology -PT/OT -Speech and swallow evaluation -Fall precautions -Urine culture -Tylenol as needed for pain and fever -strenght is improving patient participating in PT (3) Bipolar 1 disorder: Plan: Patient has had 2 prior hospitalizations in 2019 for Bipolar/freedom and anxiety. She follows with Psychiatry. Currently taking Risperidone 0.5mg po BID and Clonazepam 1mg po qHS and 0.5mg po BID. Family voices concern for patient being overmedicated - state that since being on these medications they have noted a progressive functional decline. -Workup and treatment of any acute, medical causes for patient's decline - mainly considering CVA, dehydration, possible UTI. -For now will continue her Risperdal 0.5mg po BID and her PM Clonazepam 0.5mg HS -Will reduce her daily Clonazepam to 0.25mg po BID -appreciate psych (4) UTI (urinary tract infection): Plan: urinalysis positive for UTI urine cultures growing E coli, full characterization and sensitivity pending continue ceftriaxone for now (5) Akathisia: Plan: most likely secondary to psych meds Plan continue hospitalization, medically stable for SNF when accepted Admission and Anticipated Discharge Date Admission Date: August 26, 2024 Subjective patient seen and examined, no new complaints today Review of Systems Review of Systems: All systems reviewed are negative, apart from the ones contained in the history. Physical Exam Physical Exam: The patient is awake, alert and oriented 3,dystonic HEENT--PERRL, EOMI, mucous membranes and oropharynx mildly dry Neck--supple. No JVD. No bruits. Thyroid normal, trachea midline, no adenopathy. Heart--normal S1 and S2. No murmurs, rubs or gallops. Lungs--clear bilaterally, no respiratory distress, no accessory muscle use. Abdomen--normal bowel sounds and soft. Extremities--no cyanosis or clubbing. No edema. Dermatologic--normal skin turgor, normal color, no abnormal lymph nodes, no rash. Neurologic--rigidity and dystonic Rheumatologic--normal range of motion. Psychiatric--normal affect. Results & Data Results & Data Vital Signs (Past 12 Hours) Vital Signs Temp Pulse Resp BP Pulse Ox O2 Del Method 08/31/24 07:46 97.5 F L 88 15 138/80 96 Room Air PG Care Time/CCT Total # of Minutes Spent Total Time Spent with Patient: Total time spent is greater than 50% in coordination of care (as documented) at patient's floor/unit and/or counseling patient: Coding Level of Care Code 75587 SUB INP/OBS CARE 2/35MIN Diagnoses Dyskinesia G24.9 Weakness R53.1 Bipolar 1 disorder F31.9 UTI (urinary tract infection) N39.0 Akathisia G25.71 Time Spent (min) 35
[2024-08-31] MEDS: clonazePAM 0.5 MG TAB PO SCH (20:18)
[2024-09-01 08:00] LABS: Hematocrit (blood only) 32.5 % (37.0-47.0); Hemoglobin 10.5 g/dl (12.0-16.0); Mean Corpuscular Hemoglobin 29.5 pg (25.0-34.0); Mean Corpuscular Hgb Conc 32.3 g/dL (32.0-36.0); Mean Corpuscular Volume 91.3 fL (80.0-100.0); Mean Platelet Volume 10.9 fL (9.4-12.4); Platelet Count 236 K/uL (130-400); RDW Coefficient of Variation 13.3 % (11.5-14.5); RDW Standard Deviation 44.6 fL (36.4-46.3); Red Blood Count 3.56 M/uL (4.20-5.40); White Blood Count 7.52 K/ul (4.8-10.8)
[2024-09-01 08:34] LABS: BUN Creatinine Ratio 21.8 (10-20); Calcium 8.9 mg/dl (8.6-10.3); Creatinine Clr Calc Pharmacy 72.9 ml/min; Potassium 4.2 mmol/L (3.5-5.1)
--- NOTE | 2024-09-01 10:01 | Hospitalist Progress Note ---
Date of Service September 01, 2024 Assessment & Plan (1) Dyskinesia: Plan: This is a 79yo female with progressive decline over the last several years presenting after sustaining an unwitnessed fall 9 days ago with head trauma. Family endorses some progressive decline since the fall including right facial droop, ambulatory dysfunction, possibly right sided weakness, poor PO intake and difficulty swallowing. On exam, rigidity and dyskinesia much improved today, although her facial dystonia persists This is likely from the effect of her antipsychotic meds will continue to taper down clonazepam. currently on 0.25mg BID, and 0.25mg HS Also taper Risperidone, currently 0.25mg BID Appreciate Psych recs patient participating reasonably with PT I think it will be reasonable to leave the current dose of clonazepam and Risperidon for at least 3-4 days before further tapering (2) Weakness: Plan: -Etiology is multifactorial, effect of medication -MRI brain did not show any acute pathology -PT/OT -Speech and swallow evaluation -Fall precautions -Urine culture -Tylenol as needed for pain and fever -strenght is improving patient participating in PT (3) Bipolar 1 disorder: Plan: Patient has had 2 prior hospitalizations in 2019 for Bipolar/freedom and anxiety. She follows with Psychiatry. Currently taking Risperidone 0.5mg po BID and Clonazepam 1mg po qHS and 0.5mg po BID. Family voices concern for patient being overmedicated - state that since being on these medications they have noted a progressive functional decline. -Workup and treatment of any acute, medical causes for patient's decline - mainly considering CVA, dehydration, possible UTI. -For now will continue her Risperdal 0.5mg po BID and her PM Clonazepam 0.5mg HS -Will reduce her daily Clonazepam to 0.25mg po BID -appreciate psych (4) UTI (urinary tract infection): Plan: urinalysis positive for UTI urine cultures growing E coli, pansensitive Transition to PO Ciprofloxacin (5) Akathisia: Plan: most likely secondary to psych meds Plan Patient is medically stable for SNF when accepted Admission and Anticipated Discharge Date Admission Date: August 26, 2024 Subjective patient seen and examined, no new complaints today, still has some chronic dystonic expression on her face Review of Systems Review of Systems: All systems reviewed are negative, apart from the ones contained in the history. Physical Exam Physical Exam: The patient is awake, alert and oriented 3,dystonic HEENT--PERRL, EOMI, mucous membranes and oropharynx mildly dry Neck--supple. No JVD. No bruits. Thyroid normal, trachea midline, no adenopathy. Heart--normal S1 and S2. No murmurs, rubs or gallops. Lungs--clear bilaterally, no respiratory distress, no accessory muscle use. Abdomen--normal bowel sounds and soft. Extremities--no cyanosis or clubbing. No edema. Dermatologic--normal skin turgor, normal color, no abnormal lymph nodes, no rash. Neurologic--rigidity and dystonic Rheumatologic--normal range of motion. Psychiatric--normal affect. Results & Data Results & Data Vital Signs (Past 12 Hours) Vital Signs Temp Pulse Resp BP Pulse Ox O2 Del Method 09/01/24 07:28 98.1 F 85 16 119/78 98 Room Air PG Care Time/CCT Total # of Minutes Spent Total Time Spent with Patient: Total time spent is greater than 50% in coordination of care (as documented) at patient's floor/unit and/or counseling patient: Coding Level of Care Code 65948 SUB INP/OBS CARE 2/35MIN Diagnoses Dyskinesia G24.9 Weakness R53.1 Bipolar 1 disorder F31.9 UTI (urinary tract infection) N39.0 Akathisia G25.71 Time Spent (min) 35
[2024-09-01] MEDS: CIPROFLOXACIN 250 MG TAB PO SCH (12:37)
--- NOTE | 2024-09-02 10:32 | CT Scan Report ---
CT chest diagnostic wo con CT DOSE: 312.2 mGy.cm CLINICAL HISTORY: 79 years-old Female with ARIEL GGO on CT neck. Follow-up study in a patient with lef t upper lobe nodular opacity seen on comparison CTA of the neck TECHNIQUE: Multiaxial CT images of the chest were performed without contrast. A dose lowering techni que was utilized adhering to the principles of ALARA. COMPARISON: CT neck 08/26/2024 FINDINGS: No thyroid nodule. No pathologically enlarged lymph nodes. Heart is normal in size without pericardial effusion. No thoracic aortic aneurysm. Limited study secondary to a upper extremity posit ioning. Trace pleural effusions. No pneumothorax. Mild biapical pleural-parenchymal scarring. 3 mm solid nodu le of the left upper lobe on image 52. Resolution of the previously described left upper lobe groundg lass nodular foci. Mild dependent subsegmental bibasilar atelectasis. There are no suspicious pulmona ry nodules or masses identified. Central airways are patent. There is bony excrescence involving the posterior medial aspect of the right sixth rib on image 76 series 4 which appears to be developmental . There is adjacent scarring of the superior segment right upper lobe. No acute upper abdominal abnormality. Unremarkable soft tissues. There is mild sigmoidal thoracolumba r scoliosis No acute fracture. IMPRESSION: 1. Trace pleural effusions with mild bibasilar atelectasis. 2. Mild biapical pleural parenchymal scarring with low suspicion subpleural 3 mm solid nodule of the left upper lobe. 3. Resolution of the previously described left upper lobe groundglass densities which were likely inf ectious or inflammatory. 4. No lymphadenopathy. ACT 112: Negative or not required by law. Electronically signed by: Austyn Daley M.D. 09/02/2024 10:29 AM
--- NOTE | 2024-09-02 12:12 | Hospitalist Progress Note ---
Date of Service September 02, 2024 Assessment & Plan (1) Dyskinesia: Plan: This is a 79yo female with progressive decline over the last several years presenting after sustaining an unwitnessed fall 9 days [employer] with head trauma. Family endorses some progressive decline since the fall including right facial droop, ambulatory dysfunction, possible right sided weakness, poor PO intake and difficulty swallowing. She had significant rigidity and dyskinesia on admission as well as facial dystonia. Decision made to decrease doses of her clonazepam and antipsychotic and apparently has had improvement in her rigidity and dyskinesia, although her facial dystonia persists. This is likely from the effect of her antipsychotic meds. CT head, CTA head/neck, MRI brain negative for acute issues Will continue to taper down clonazepam slowly-continue on 0.25mg BID, and 0.25mg HS (home dose 0.5mg po bid and 1mg hs) Also tapering Risperidone, currently 0.25mg BID (home dose 0.5mg qAM and 1mg po hs) Appreciate Psych recs-will reach out to Psych today for further recommendations and to see if they note improvement as this is my first day seeing her Will need outpt Psych follow up Also consider outpt Neuro follow up Question if needs treatment for TD or dystonia? WIll discuss with Psych (2) Weakness: Plan: With fall on 08/17/24--> CT head, face, C-spine, T-spine, L-spine, CTA head/neck, MRI brain all negative for acute issues Etiology is multifactorial from side effect of medication, with dystonia or TD? PT/OT recommends rehab placement-pending Changing meds as above Continue Fall precautions Treated UTI Of note, C-sine CT showed ARIEL ground glass opacity and recommended CT CHest--> obtained CT Chest 09/02 and the GGO is resolved, has a 3mm subpleural pulm nodule not significant (3) Bipolar 1 disorder: Plan: Patient has had 2 prior hospitalizations in 2019 for Bipolar/freedom and anxiety. She follows with Psychiatry as an outpt with a PA named Darshana Ruiz. Prior to admission, she was on Risperidone 0.5mg qAM and 1mg po hs and Clonazepam 1mg po qHS and 0.5mg po BID. Family voices concern for patient being overmedicated - state that since being on these medications they have noted a progressive functional decline. Appreciate Psych consult (4) UTI (urinary tract infection): Plan: urinalysis positive for UTI urine cultures growing E coli, pansensitive Unclear if ever had any urinary symptoms or just asymptomatic bacteriuria treated with a total of five days of ceftriaxone and po Cipro-can now stop (5) Akathisia: Plan: most likely secondary to psych meds-improved Plan DVT proph-add Lovenox SQ Dispo-awaiting insurance auth for [facility], referral made for back up SNF on 09/02 Admission and Anticipated Discharge Date Admission Date: August 26, 2024 Subjective Pt says she feels tired but has no other complaints. Is feeding herself using two utensils, one n each hand, with tremor. Physical Exam Constitutional: WD/WN, vitals as above Respiratory: normal respiratory effort, lungs clear to auscultation Cardiovascular: RRR, no murmur, no edema Neurologic: awake; no focal motor deficits Speech / Cognition: + abnormal speech (mild dysarthria,tongue protruding) Motor/Sensory: + tremor (action tremor in UEs bilat) Results & Data Results & Data Vital Signs (Past 12 Hours) Vital Signs Temp Pulse Resp BP Pulse Ox O2 Del Method 09/02/24 08:06 36.5 C 93 H 16 142/88 H 94 Room Air 09/02/24 07:56 Room Air Laboratory Results CBC, BMP reviewed PG Care Time/CCT Total # of Minutes Spent Total Time Spent with Patient: Total time spent is greater than 50% in coordination of care (as documented) at patient's floor/unit and/or counseling patient: Coding Level of Care Code 70095 SUB INP/OBS CARE 2/35MIN Diagnoses Dyskinesia G24.9 Weakness R53.1 Bipolar 1 disorder F31.9 UTI (urinary tract infection) N39.0 Akathisia G25.71
[2024-09-02] MEDS: ENOXAPARIN INJ 40 MG/0.4 ML SYR SQ SCH (13:12)
--- NOTE | 2024-09-03 11:23 | Hospitalist Progress Note ---
Date of Service September 03, 2024 Assessment & Plan (1) Dyskinesia: Plan: This is a 79yo female with progressive decline over the last several years presenting after sustaining an unwitnessed fall 9 days [employer] with head trauma. Family endorses some progressive decline since the fall including right facial droop, ambulatory dysfunction, possible right sided weakness, poor PO intake and difficulty swallowing. She had significant rigidity and dyskinesia on admission as well as facial dystonia. Decision made to decrease doses of her clonazepam and antipsychotic and apparently has had improvement in her rigidity and dyskinesia, although her facial dystonia and tardive dyskinesia persists. She also has bilateral upper extremity action tremors This is likely from the effect of her antipsychotic meds. As per Psych notes in chart from 2019, she had none of these issues at that time which was prior to starting antipsychotic meds. psych liaison has requested outpt Psych records for review-she has been on the risperdal and clonazepam for years despite the dyskinesia and dystonia-question why no changes made or treatment of TD? CT head, CTA head/neck, MRI brain negative for acute issues Will continue to taper down clonazepam slowly-continue on 0.25mg BID, and 0.25mg HS (home dose 0.5mg po bid and 1mg hs) Also tapering Risperidone, currently 0.25mg BID (home dose 0.5mg qAM and 1mg po hs) Keep these same doses for now Appreciate Psych recs-I have reached out to Psych for further recommendations for treatmetn of Bipolar d/o now that sh eis being weaned off her meds here and also for treatment of TD/dystonia--> question if need Neuro follow up as well as outpt Will need outpt Psych follow up Also consider outpt Neuro follow up (2) Weakness: Plan: With fall on 08/17/24--> CT head, face, C-spine, T-spine, L-spine, CTA head/neck, MRI brain all negative for acute issues Etiology is multifactorial from side effect of medication, with dystonia or TD? PT/OT recommends rehab placement-pending Changing meds as above Continue Fall precautions Treated UTI Of note, C-sine CT showed ARIEL ground glass opacity and recommended CT CHest--> obtained CT Chest 09/02 and the GGO is resolved, has a 3mm subpleural pulm nodule not significant (3) Bipolar 1 disorder: Plan: Patient has had 2 prior hospitalizations in 2019 for Bipolar/freedom and anxiety. She follows with Psychiatry as an outpt with a PA named Darshana Ruiz. Prior to admission, she was on Risperidone 0.5mg qAM and 1mg po hs and Clonazepam 1mg po qHS and 0.5mg po BID. Family voices concern for patient being overmedicated - state that since being on these medications they have noted a progressive functional decline. Appreciate Psych consult-awaiting further reocmmendations (4) UTI (urinary tract infection): Plan: urinalysis positive for UTI urine cultures growing E coli, pansensitive Unclear if ever had any urinary symptoms or just asymptomatic bacteriuria treated with a total of five days of ceftriaxone and po Cipro-can now stop (5) Akathisia: Plan: most likely secondary to psych meds-improved Plan DVT proph- Lovenox SQ Dispo-awaiting insurance auth for [facility], referral made for back up SNF on 09/02 likely dc on Thursday Admission and Anticipated Discharge Date Admission Date: August 26, 2024 Subjective Pt denies pain anywhere except chronic pain in left arm from a previous trauma. Says "I am feeding myself." Physical Exam Constitutional: WD/WN, vitals as above Respiratory: normal respiratory effort, lungs clear to auscultation Cardiovascular: RRR, no murmur, no edema Neurologic: awake; no focal motor deficits Speech / Cognition: + abnormal speech (mild dysarthria,tongue protruding and moving frequently) Motor/Sensory: + tremor (action tremor in UEs bilat) right side of face with mild weakness Psychiatric: Mood: no depressed mood Results & Data Results & Data Vital Signs (Past 12 Hours) Vital Signs Temp Pulse Resp BP Pulse Ox O2 Del Method 09/03/24 07:18 36.7 C 83 15 135/80 93 Room Air PG Care Time/CCT Total # of Minutes Spent Total Time Spent with Patient: Total time spent is greater than 50% in coordination of care (as documented) at patient's floor/unit and/or counseling patient: Coding Level of Care Code 58902 SUB INP/OBS CARE 09/10MIN Diagnoses Dyskinesia G24.9 Weakness R53.1 Bipolar 1 disorder F31.9 UTI (urinary tract infection) N39.0 Akathisia G25.71
--- NOTE | 2024-09-03 14:39 | Psychiatric Progress Note ---
Date of Service September 03, 2024 Impression / Recommendations Impression Diagnostically consistent with tardive dyskinesia but also concern for possible progressive neurological condition that would be important to rule out as tardive dyskinesia can impact swallowing but constellation of recent fall, balance issues, seemingly rigid facial muscles, poor performance on MOCA assessment (somewhat limited by her eyesight/lack of glasses though) and new weakness also raises concern for other possibilities (i.e. progressive supranuclear palsy). For now she is tolerating taper of Klonopin and risperidone. Would continue with taper to discontinuation. Discussed with Chayo and her family option of starting lamictal for alternative mood stabilization including risks of Siu Kyle syndrome, potential for fatal rash and need for adherence and they consent to starting this. Reviewed that TD can sometimes worsen once an antipsychotic is stopped and if this becomes the case then an alternative antipsychotic such as low dose olanzapine or VMAT2 inhibitor could be initiated. Overall, I spent a total of 60 minutes with this case including review of chart records, review of labwork, direct evaluation of the patient at bedside, counseling the patient, discussion of the patient with the hospitalist provider, discussion with the psychiatric liason during clinical rounds, review of collateral historian information from the family and documentation in the electronic health record. (1) Bipolar 1 disorder: (2) Generalized anxiety disorder: (3) Fall: (4) Tardive dyskinesia: (5) Swallowing difficulty: Plan 09/03/24: -Can decrease clonazepam from 0.25mg TID to 0.25mg BID after 1-2 days and then further to 0.25mg daily after 2 weeks. After another 1-2 weeks trial discontinuation. -Can discontinue risperidone 0.25mg BID in 3-5 days, monitor closely for any signs of worsening sleep/freedom/psychosis, if this emerges consider use of olanzapine 2.5mg HS or 5mg HS. -Start lamictal 25mg daily with goal of ongoing titration in outpatient setting for mood stabilization -Consider use of VMAT 2 inhibitor -Encourage neurology input 09/02/2024: Given known association of benzodiazepines with falls, cognitive impairment and confusion in the elderly, agree with plan to taper clonazepam. Recommend medical team consider a further reduction of clonazepam after 24 hours on current dose to 0.25mg bid + 0.5mg qhs. Maintain Risperidone at current dose of 0.5mg bid. Ensure follow up with OP psychiatrist to monitor response. Risk Factors Assessment Do You Have Access To A Gun?: No Interval History Identifying Information Chayo Reid is a 79 yo woman with a history of BPAD, ISIDRA and HTN admitted medically following a fall and muscle weakness. Psychiatry consulted for medication recommendations, specifically concern for oversedation. Chief Complaint "I'm good". Subjective Subjective Patient was seen & assessed and interval progress reviewed. Today Chayo's hu sband and son are visiting and at bedside, she requests they remain during our visit. She denies any increase in anxiety with tapering of clonazepam nor mood changes with lessening of risperidone. Have not yet received outpatient records. Reviewed again recent history and symptoms with Chayo and her family. and son noticed worsening gait with hunched over posture starting about 6 months ago as well as swallowing difficulty, has seen her almost choke and reports recently feeding her one blueberry at a time. She has visible tongue movements in a patterned manner, unclear if any concerns for tardive dyskinesia in the outpatient setting. Son reports no recent medication changes that she's remained on risperidone since hospitalization in 2019. she is able to hold out her arms but seems to have some muscle stiffness. Brief, informal CN assessment attempted. Chayo denies any current symptoms of depression nor SI. Physical Exam Psychiatric Motor Behavior: + EPS (TD of tongue) and + tremor (at times) Vital Signs (Past 24 Hours) Last Vital Signs Temp 36.3 C L 09/03/24 14:21 Pulse 89 09/03/24 14:21 Resp 15 09/03/24 14:21 BP 105/68 09/03/24 14:21 Pulse Ox 95 09/03/24 14:21 O2 Del Method Room Air 09/03/24 14:21 Neurologic Cranial Nerves: tongue midline and able to elevate shoulders bilaterally; + abnormal facial strength Results & Data ([facility]) Current Inpatient Medications Current Inpatient Medications: Current Inpatient Medications Acetaminophen (Acetaminophen 325 Mg Tab) 650 mg PO Q4H PRN PRN Reason: Pain or Fever Stop: 09/25/24 21:40 Clonazepam (Clonazepam 0.25 Mg Od Tab) 0.25 mg PO BID@0900,1600 PILI Stop: 09/26/24 08:59 Last Admin: 09/03/24 09:39 Dose: 0.25 mg Clonazepam (Clonazepam 0.5 Mg Tab) 0.25 mg PO HS [facility] Stop: 09/30/24 20:59 Last Admin: 09/02/24 20:27 Dose: 0.25 mg Enoxaparin Sodium (Enoxaparin Inj 40 Mg/0.4 Ml Syr) 40 mg SQ Q24H PILI Stop: 10/02/24 12:44 Last Admin: 09/03/24 12:23 Dose: 40 mg Lisinopril (Lisinopril 10 Mg Tab) 10 mg PO DAILY PILI Stop: 09/26/24 08:59 Last Admin: 09/03/24 09:40 Dose: 10 mg Ondansetron HCl (Ondansetron Inj 2 Mg/Ml 2 Ml Vial) 4 mg IV Q6H PRN PRN Reason: Nausea And Vomiting Stop: 09/25/24 21:40 Risperidone (Risperidone 0.25 Mg Tab) 0.25 mg PO BID PILI Stop: 09/30/24 08:59 Last Admin: 09/03/24 09:39 Dose: 0.25 mg
[2024-09-03] MEDS: clonazePAM 0.25 MG OD TAB PO SCH (20:12)
[2024-09-03] MEDS: lamoTRIgine 25 MG TAB PO SCH (20:12)
--- NOTE | 2024-09-04 10:05 | Neurology Consultation ---
Date of Consultation September 04, 2024 Assessment & Plan (1) Tardive dyskinesia: (2) Parkinsonism: Plan This patient has cogwheeling, mild resting tremor, and some bradykinesia, all consistent with parkinsonism. In addition she has tongue protrusion and grimacing consistent with dyskinesia. Finally, she has some action tremor bilaterally as well. Given her chronic Risperdal usage I suspect that this movement is a tardive dyskinesia(although strictly speaking, it is not tardive until the symptoms persist for 1 month after discontinuing the medication), tremor, and parkinsonism are all secondary to the neuroleptic risperidone. Although I cannot entirely exclude an early Parkinson's disease it is too early to make this diagnosis. It is only just been recently discontinued (yesterday). She has no other focal neurologic findings, meningeal signs, or encephalopathy/dementia of any significance. Cervical, thoracic, and lumbar spine imaging studies show degenerative changes only MRI of the brain shows generalized atrophy and old small vessel disease consistent with age and condition (history of hypertension). CT angiography of the head and neck showed no vascular stenoses or anomalies. Recommendations: 1. Remain off all neuroleptics including risperidone. 2. Increase activity as able and consider physical, occupational, and speech therapy. 3. Consider long-acting propranolol 60 mg ER once daily in the morning for the resting tremor. This may also help her blood pressure. 4. I agree with lamotrigine and as this can be an excellent medication for bipolar. Increasing by 25 mg/week is very slow and reduces any risk of skin reaction. 5. Consider B12, Lyme antibody titers, ESR, and CRP 6. TSH was elevated. Consider low-dose levothyroxine (or repeat TSH). Hypothyroidism can cause bradykinesia 7. I would avoid medications such as trihexyphenidyl 8. If the movements/dyskinesia persists after 1 month, could consider adding deutetrabenazine or valbenazine for movements. 9. If she persists in Parkinson symptoms over the next 1 to 2 months, consider a REGINALDO scan for diagnoses and carbidopa/levodopa for treatment. 10. 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 Follow-up with neurology in 3 to 4 weeks (neurology PA), if desired 12. Patient follows with [facility] for psychiatric treatment Overall, I spent a total of 110 minutes with this case including review of records, review of CT and MRI films, direct evaluation the patient at bedside, report generation, and discussion of the case with the patient and RN at bedside and Dr. Purvis, including differential diagnosis and treatment options. History of Present Illness Reason for Consultation: Patient is a 79-year-old, who I was asked at the request of Dr. Chris, for neurologic consultation regarding abnormal movements Requesting Physician: Dr. Chris Attending Physician: Ge Purvis MD History of Present Illness This patient has a history of hypertension, generalized anxiety disorder and bipolar 1 disorder. She started having significant psychiatric issues in August 2018. She was diagnosed with freedom and has had diagnoses of bipolar 2 disorder and generalized anxiety disorder. She had a prolonged psychiatric inpatient stay in September 2018. An MRI of the brain back in 2018 had some old small vessel ischemic disease but no other significant findings. She has been on risperidone and clonazepam ever since. Patient has been following with [facility] for psychiatric follow-up Patient was admitted August 26 after a fall. She had facial contusion and spine pain. Exam shows that she is slow and has tremor. She has some abnormal movements of her face and tongue as well. She has seen psychiatry and they have tapered clonazepam and tapered her off risperidone. Her most recent risperidone dose was 0.25 mg on September 03. She is not due to get risperidone starting today. Patient has a 6-month (at least) problem with unsteady gait weakness hunched posture stiffness and slowness and abnormal movements. She has some trouble swallowing CT scan of the head shows some generalized atrophy and no acute changes. CT scans of the cervical, thoracic, and lumbar spines showed degenerative cages but no significant problems or acute fractures. CT scan of the chest showed a left upper lobe nodule MRI of the brain revealed moderate generalized atrophy and mild to moderate old small vessel ischemic disease. I reviewed these films and there is no other abnormalities. CT angiography of the head and neck were unremarkable without any vascular anomalies or stenoses. CBC shows some mild anemia, CHEM profile was largely unremarkable. CK was 31 and TSH was 5.1. Urinalysis was unremarkable. Today she has no complaint of pain in the head or spine or in the limbs. She has no weakness or numbness in the limbs. She is not dizzy or have vision problems. She has no swallowing problems and ate breakfast well. Allergies Allergy/AdvReac Type Severity Reaction Status Date / Time Penicillins Allergy Unknown rash Verified 03/30/19 16:17 Home Medications Medication Instructions Recorded Confirmed Type lisinopril 10 mg PO DAILY 03/30/19 08/29/24 History clonazepam 0.5 mg tablet 0.5 mg PO BID@0900,1600 #60 tabs 05/06/19 08/29/24 Rx clonazepam 1 mg tablet 1 mg PO HS #30 tabs 05/06/19 08/29/24 Rx risperidone 0.5 mg tablet 0.5 mg PO QAM #30 tabs 05/06/19 08/29/24 Rx risperidone 1 mg tablet 1 mg PO HS #30 tabs 05/06/19 08/29/24 Rx Patient History Medical History Hypertension Generalized anxiety disorder Bipolar 1 disorder with moderate freedom Surgical History H/O: hysterectomy (~1979) Family History Other Cancer Social History (Updated 09/04/24 @ 10:11 by Sridhar Niño MD) Smoking Status: Never smoker Second Hand Exposure: No; Do You Dip or Chew Tobacco: No; Hx Alcohol Use: No Hx Substance Use: No Preferred Language: Pashto Communication Ability: Effective Visual Impairment: No Limitations Hearing Ability: Normal 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 Servicer 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 Required: No Beliefs That Will Affect Care: None marital status: Current Living Situation: Spouse current occupational status: retired 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) Feels Safe at Home: Yes Assistive Devices: None Review of Systems Constitutional: no fever, no fatigue and no weakness Eyes: no diplopia, no eye pain and no worsening vision Ear, Nose, Mouth, Throat: no ear pain, no tinnitus, no hearing loss, no dizziness, no snoring, no hoarseness and no dysphagia Respiratory: no cough and no dyspnea Cardiovascular: no chest pain, no palpitations and no lightheadedness Gastrointestinal: no abdominal pain, no nausea and no vomiting Genitourinary: no dysuria, no urinary frequency and no urinary incontinence Musculoskeletal: no back pain, no neck pain, no radicular pain, no joint pain and no myalgia Integumentary: no rash and no lesions Neurologic: + abnormal movements; no gait abnormalit y, no localized weakness, no generalized weakness, no tingling, no numbness, no tremor(s), no headache(s), no abnormal speech, no confusion and no memory loss Psychiatric: + depression and + anxiety; no irritabil ity, no difficulty concentrating, no confusion and no hallucinations Endocrine: no fatigue and no flushing Hematologic / Lymphatic: no easy bleeding and no easy bruising Allergy / Immunological: no urticaria and no problem reported Exam (Neuro) Physical Exam: The patient is right-handed. The patient is awake, alert, and attentive. Speech has some mumbled speech/dysarthria at times but no obvious aphasia. Mentation and thought processes are reasonable and she is fully oriented. Mood and affect are normal and appropriate. She is pleasant and cooperative. Appearance and grooming are normal. Short and long-term memory are reasonable to conversation Pupils are 3 mm bilaterally and reactive to light. Extraocular eye muscles are intact without nystagmus. Visual acuity and visual dias seem normal grossly to confrontation. There are no deficits to sensation in the face in all 3 distributions of the fifth cranial nerve bilaterally. Corneal reflexes are positive bilaterally. Facial strength and symmetry was normal bilaterally. Hearing seems intact grossly to voice and finger rub bilaterally. Palate moves well without asymmetry. There is normal sternocleidomastoid and trapezius strength bilaterally. Tongue is midline with good strength bilaterally. The patient has grimacing/smiling on terribly frequently and frequent tongue protrusion to the midline. There is a mild masklike face but she still retains some expression. She is slow/bradykinetic in general the follow-up mild degree. Neck has a full range of motion without discomfort. Cervical, thoracic, and lumbar spine are nontender to palpation. Gait was not tested but stance sitting up in bed was reasonable With outstretched arms there is no drift. There are mild right greater than left action tremor bilaterally and a very mild right resting tremor.. There is no ataxia with finger to nose testing. There is decreased facility in the hands right greater than left side with "rundown affect" with rapid alternating movements. Motor strength is essentially 5/5 diffusely in the arms bilaterally including deltoids, biceps, triceps, brachioradialis, wrist flexors and extensors, police inspector, and intrinsic hand muscles. Motor strength is 5/5 diffusely in the legs bilaterally including hip flexors, quadriceps, hamstrings, gastrocnemius, tibialis anterior, tibialis posterior, and Peroneii muscles bilaterally. Toe extensors are normal and there is good bulk in the extensor digitorum brevis muscles bilaterally. There is moderate cogwheeling in the arms bilaterally. Sensory examination is intact to touch and pin throughout all 4 limbs diffusely. Reflexes are 1/4 in the biceps, triceps, brachioradialis, quadriceps, and Achilles tendons bilaterally. Toes are downgoing with plantar stimulation bilaterally. Peripheral pulses are present and of normal quality distally in all 4 limbs. There is no peripheral edema noted in the limbs. Results & Data Vital Signs (Past 12 Hours) Vital Signs Temp Pulse Resp BP Pulse Ox O2 Del Method 09/04/24 08:00 Room Air 09/04/24 07:24 36.6 C 82 16 147/77 H 97 Room Air PG Care Time/CCT Total # of Minutes Spent Total Time Spent with Patient: Total time spent is greater than 50% in coordination of care (as documented) at patient's floor/unit and/or counseling patient: Coding Level of Care Code 11234 INT INP/OBS CARE 3/75MIN Diagnoses Tardive dyskinesia G24.01 Parkinsonism G20.C Time Spent (min) 110
--- NOTE | 2024-09-04 13:15 | Hospitalist Progress Note ---
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 Family endorses some progressive decline since the fall including right facial droop, ambulatory dysfunction, possible right sided weakness, poor PO intake and difficulty swallowing. She had significant rigidity and dyskinesia on admission as well as facial dystonia. Dyskinesia is likely effect from antipsychotic meds. CT head, CTA head/neck, MRI brain negative for acute issues Psychiatry consulted - continue to taper Klonopin, now off risperidone. Start lamictal 25mg daily - Clonazepam decreased to 0.25mg BID on 09/03. After 1-2 weeks, can decrease to daily. After 1-2 weeks try stopping. 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 Follow up in clinic with PA in 3-4 weeks - Add propranolol 60mg ER qam for tremors (ordered). Agree with lamictal, can increase weekly if needed - Check B12, lyme, ESR and CRP. Recheck TSH, if elevated consider low-dose synthroid - further meds/testing if symptoms persist > 1 month off risperdal. With decreasing meds apparently has had improvement in her rigidity and dyskinesia, although her facial dystonia and tardive dyskinesia persists. She also has bilateral upper extremity action tremors Will need outpt Psych & Neuro follow up (2) Weakness: Plan: With fall on 08/17/24--> CT head, face, C-spine, T-spine, L-spine, CTA head/neck, MRI brain all negative for acute issues Etiology is multifactorial from side effect of medication, with dystonia or TD?. Treated UTI PT/OT recommends rehab placement-pending Of note, C-sine CT showed ARIEL ground glass opacity and recommended CT CHest--> obtained CT Chest 09/02 and the GGO is resolved, has a 3mm subpleural pulm nodule not significant (3) Bipolar 1 disorder: Plan: Patient has had 2 prior hospitalizations in 2019 for Bipolar/freedom and anxiety. She follows with Psychiatry as an outpt with a PA named Darshana Ruiz. Medication changes as above - now on lamictal (4) UTI (urinary tract infection): Plan: Completed course of ceftriaxone/cipro. (5) Akathisia: Plan: most likely secondary to psych meds-improved Plan DVT proph- Lovenox SQ Dispo-awaiting insurance auth for [facility], referral made for back up SNF on 09/02 likely dc on Thursday family updated at bedside 09/04 Admission and Anticipated Discharge Date Admission Date: August 26, 2024 Subjective Patient seen sitting up in bed eating lunch - very interested in her lunch. Denies any acute concersn son and present at bedside relayed neurology recommendations Review of Systems Review of Systems: All systems reviewed & are unremarkable except as noted in Subjective Physical Exam Constitutional: WD/WN, vitals as above Respiratory: normal respiratory effort, lungs clear to auscultation Cardiovascular: RRR, no murmur, no edema Neurologic: awake; no focal motor deficits Speech / Cognition: + abnormal speech (mild dysarthria,tongue protruding and moving frequently) Motor/Sensory: + tremor (action tremor in UEs bilat) Psychiatric: Mood: no depressed mood Results & Data Results & Data Vital Signs (Past 12 Hours) Vital Signs Temp Pulse Resp BP Pulse Ox O2 Del Method 09/04/24 08:00 Room Air 09/04/24 07:24 97.9 F 82 16 147/77 H 97 Room Air PG Care Time/CCT Total # of Minutes Spent Total Time Spent with Patient: Total time spent is greater than 50% in coordination of care (as documented) at patient's floor/unit and/or counseling patient: Coding Level of Care Code 52468 SUB INP/OBS CARE 2/35MIN Diagnoses Dyskinesia G24.9 Weakness R53.1 Bipolar 1 disorder F31.9 UTI (urinary tract infection) N39.0 Akathisia G25.71
[2024-09-04] MEDS: FAMOTIDINE 20 MG TAB PO PRN (21:32)
[2024-09-05 06:53] LABS: C Reactive Protein 1.24 mg/dl (0-0.5)
[2024-09-05 07:08] LABS: Thyroid Stimulating Hormone 9.778 uIu/ml (0.300-4.500)
[2024-09-05 07:42] LABS: T4 Free Thyroxine 0.83 ng/dl (0.61-1.60)
[2024-09-05] MEDS: PROPRANOLOL HCL 60 MG LA CAP PO SCH (08:33)
--- NOTE | 2024-09-05 17:09 | Hospitalist Progress Note ---
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 Family endorses some progressive decline since the fall including right facial droop, ambulatory dysfunction, possible right sided weakness, poor PO intake and difficulty swallowing. She had significant rigidity and dyskinesia on admission as well as facial dystonia. Dyskinesia is likely effect from antipsychotic meds. CT head, CTA head/neck, MRI brain negative for acute issues Psychiatry consulted - continue to taper Klonopin, now off risperidone. Start lamictal 25mg daily - Clonazepam decreased to 0.25mg BID on 09/03. After 1-2 weeks, can decrease to daily. After 1-2 weeks try stopping. 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 Follow up in clinic with PA in 3-4 weeks - Add propranolol 60mg ER qam for tremors (ordered). Agree with lamictal, can increase weekly if needed - Check B12, lyme, ESR and CRP. Recheck TSH, if elevated consider low-dose synthroid - further meds/testing if symptoms persist > 1 month off risperdal. TSH elevated at 9.778, added low dose Synthroid to begin 09/06. Follow up with PCP outpatient to recheck labs. With decreasing meds apparently has had improvement in her rigidity and dyskinesia, although her facial dystonia and tardive dyskinesia persists. She also has bilateral upper extremity action tremors Will need outpt Psych & Neuro follow up (2) Weakness: Plan: With fall on 08/17/24--> CT head, face, C-spine, T-spine, L-spine, CTA head/neck, MRI brain all negative for acute issues Etiology is multifactorial from side effect of medication, with dystonia or TD?. Treated UTI PT/OT recommends rehab placement-pending Of note, C-sine CT showed ARIEL ground glass opacity and recommended CT CHest--> obtained CT Chest 09/02 and the GGO is resolved, has a 3mm subpleural pulm nodule not significant (3) Bipolar 1 disorder: Plan: Patient has had 2 prior hospitalizations in 2019 for Bipolar/freedom and anxiety. She follows with Psychiatry as an outpt with a PA named Darshana Ruiz. Medication changes as above - now on lamictal (4) UTI (urinary tract infection): Plan: Completed course of ceftriaxone/cipro. (5) Akathisia: Plan: most likely secondary to psych meds-improved Plan DVT proph- Lovenox SQ Dispo-awaiting insurance auth for [facility], referral made for back up SNF on 09/02 Admission and Anticipated Discharge Date Admission Date: August 26, 2024 Subjective Patient seen and examined this morning. Patient offered no complaints today. She is awaiting placement at a rehab facility. Physical Exam Constitutional: WD/WN, vitals as above Eyes: PERRL, conjunctivae normal, anicteric sclerae Respiratory: breathing unlabored Cardiovascular: well perfused Results & Data Results & Data Vital Signs (Past 12 Hours) Vital Signs Temp Pulse Resp BP Pulse Ox O2 Del Method 09/05/24 14:24 36.2 C L 65 16 95/61 L 95 Room Air 09/05/24 07:26 37.0 C 82 16 129/78 98 Room Air PG Care Time/CCT Total # of Minutes Spent Total Time Spent with Patient: Total time spent is greater than 50% in coordination of care (as documented) at patient's floor/unit and/or counseling patient: Coding Level of Care Code 29119 SUB INP/OBS CARE 2/35MIN Diagnoses Dyskinesia G24.9 Weakness R53.1 Bipolar 1 disorder F31.9 UTI (urinary tract infection) N39.0 Akathisia G25.71
[2024-09-05 23:06] VITALS: RESP 18
[2024-09-06] MEDS: LEVOTHYROXINE SODIUM 25 MCG TABLET PO SCH (05:58)
--- NOTE | 2024-09-06 15:25 | Hospitalist Progress Note ---
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 Family endorses some progressive decline since the fall including right facial droop, ambulatory dysfunction, possible right sided weakness, poor PO intake and difficulty swallowing. She had significant rigidity and dyskinesia on admission as well as facial dystonia. Dyskinesia is likely effect from antipsychotic meds. CT head, CTA head/neck, MRI brain negative for acute issues Psychiatry consulted - continue to taper Klonopin, now off risperidone. Start lamictal 25mg daily - Clonazepam decreased to 0.25mg BID on 09/03. After 1-2 weeks, can decrease to daily. After 1-2 weeks try stopping. 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 Follow up in clinic with PA in 3-4 weeks - Add propranolol 60mg ER qam for tremors (ordered). - further meds/testing if symptoms persist > 1 month off risperdal. TSH elevated at 9.778, added low dose Synthroid to begin 09/06. Follow up with PCP outpatient to recheck labs. With decreasing meds has had improvement in her rigidity and dyskinesia, although her facial dystonia and tardive dyskinesia persists. She also has bilateral upper extremity action tremors Will need outpt Psych & Neuro follow up (2) Weakness: Plan: With fall on 08/17/24--> CT head, face, C-spine, T-spine, L-spine, CTA head/neck, MRI brain all negative for acute issues Etiology is multifactorial from side effect of medication, with dystonia or TD?. Treated UTI PT/OT recommends rehab placement-pending Of note, C-sine CT showed ARIEL ground glass opacity and recommended CT CHest--> obtained CT Chest 09/02 and the GGO is resolved, has a 3mm subpleural pulm nodule not significant (3) Bipolar 1 disorder: Plan: Patient has had 2 prior hospitalizations in 2019 for Bipolar/freedom and anxiety. She follows with Psychiatry as an outpt with a PA named Darshana Ruiz. Medication changes as above - now on lamictal (4) UTI (urinary tract infection): Plan: Completed course of ceftriaxone/cipro. (5) Akathisia: Plan: most likely secondary to psych meds-improved Plan DVT proph- Lovenox SQ Dispo-Insurance denied auth for [facility]. Auth for [facility] pending. Patient medically stable for discharge. Admission and Anticipated Discharge Date Admission Date: August 26, 2024 Subjective Patient seen and examined this morning. Patient denied any complaints at time of her visit. She was resting comfortably in bed. Physical Exam Constitutional: WD/WN, vitals as above Eyes: PERRL, conjunctivae normal, anicteric sclerae Respiratory: breathing unlabored Cardiovascular: well perfused Results & Data Results & Data Vital Signs (Past 12 Hours) Vital Signs Temp Pulse Resp BP Pulse Ox O2 Del Method 09/06/24 08:00 36.6 C 66 18 112/76 96 Room Air 09/06/24 07:30 Room Air PG Care Time/CCT Total # of Minutes Spent Total Time Spent with Patient: Total time spent is greater than 50% in coordination of care (as documented) at patient's floor/unit and/or counseling patient: Coding Level of Care Code 67560 SUB INP/OBS CARE 2/35MIN Diagnoses Dyskinesia G24.9 Weakness R53.1 Bipolar 1 disorder F31.9 UTI (urinary tract infection) N39.0 Akathisia G25.71
[2024-09-07 08:11] VITALS: BP 106/69; PULSE 64; TEMP 98.2; O2SAT 96
--- NOTE | 2024-09-07 10:49 | Discharge Summary ---
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 Family endorses some progressive decline since the fall including right facial droop, ambulatory dysfunction, possible right sided weakness, poor PO intake and difficulty swallowing. She had significant rigidity and dyskinesia on admission as well as facial dystonia. Dyskinesia is likely effect from antipsychotic meds. CT head, CTA head/neck, MRI brain negative for acute issues Psychiatry consulted - continue to taper Klonopin, now off risperidone. Start lamictal 25mg daily - Clonazepam decreased to 0.25mg BID on 09/03. After 1-2 weeks, can decrease to daily. After 1-2 weeks try stopping. 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 Follow up in clinic with PA in 3-4 weeks - Add propranolol 60mg ER qam for tremors - further meds/testing if symptoms persist > 1 month off risperdal. TSH elevated at 9.778, added low dose Synthroid to begin 09/06. Follow up with PCP outpatient to recheck labs. With decreasing meds has had improvement in her rigidity and dyskinesia, although her facial dystonia and tardive dyskinesia persists. She also has bi lateral upper extremity action tremors Will need outpt Psych & Neuro follow up (2) Weakness: With fall on 08/17/24--> CT head, face, C-spine, T-spine, L-spine, CTA head/neck, MRI brain all negative for acute issues Etiology is multifactorial from side effect of medication, with dystonia or TD?. Treated UTI PT/OT recommends rehab - discharged to [facility] Of note, C-sine CT showed ARIEL ground glass opacity and recommended CT CHest--> obtained CT Chest 09/02 and the GGO is resolved, has a 3mm subpleural pulm nodule not significant (3) Bipolar 1 disorder: Patient has had 2 prior hospitalizations in 2019 for Bipolar/freedom and anxiety. She follows with Psychiatry as an outpt with a PA named Darshana Ruiz. - follow up on discharge. Medication changes as above - now on lamictal (4) UTI (urinary tract infection): Completed course of ceftriaxone/cipro. (5) Akathisia: most likely secondary to psych meds-improved Plan Discharged to [facility] 09/07. Admission HPI Per Admitting Provider Chayo Reid is a 79yo female with history of Bipolar disorder, generalized anxiety and HTN presenting from home with generalized weakness and ambulatory dysfunction. Patient had an unwitnessed fall on 08/17/24 and hit the left side of her face. Her family reports since then she has had more weakness (possibly more on the right side) as well as a slight right facial droop, difficulty ambulating and coughing with meals. Increased fatigue - sleeps throughout the day. reports that she is more afraid to get up and ambulate due to her recent fall. Prior to her fall on 08/17/24 she was able to climb up stairs but has not been doing that anymore. She has had decreased appetite and poor oral intake since 08/17/24. Patient reports some headache. Fever noted by EMS en route Np=725.9 Otherwise, no chest pain, cough, SOB, abdominal pain, nausea, vomiting, diarrhea or constipation. She has chronic dysarthria but seems to have a new right facial droop and right sided weakness. Family voices additional concern about patient's psychiatric meds. They report that since being on her Psychiatric medications since 2019 she has "been a zombie" and has had significant loss of function, decreased strength and activity. Patient has history of generalized anxiety disorder and bipolar disorder. She was hospitalized in September 2018 with manic behavior. At that time she was taking Zoloft unopposed. She was prescribed Risperdal and Trazodone but was not taking them. Her Risperdal was restarted and she was started on Klonopin PRN during her hospitalization. She was ultimately discharged on Risperidone 1mg po BID with followup at [facility]. Patient was re-hospitalized in March 2019 with Bipolar and anxiety. At that time she was on Olanzapine, Sertraline, Clonazepam and Hydroxyzine. She was ultimately discharged on Clonazepam 1mg po qHS and 0.5mg po BID and Risperidone 1mg po qHS and 0.5mg po qAM. Son and are concerned that patient is being overmedicated. She is currently taking Risperidone 0.5mg po BID and Clonazepam 1mg po qHS and 0.5mg po BID In the ER she is afebrile, HD stable ER Course: NSS at 125mL/hr Discharge Exam Constitutional WD/WN, vitals as above Eyes PERRL, conjunctivae normal, anicteric sclerae Respiratory breathing unlabored Cardiovascular well perfused Discharge Plan Discharge Items Patient Disposition: Transfer Inpatient Rehab Fac Reason For Visit: GENERALIZED WEAKNESS, RECENT FALL Discharge Diagnosis: Dyskinesia Activity: As commented below Activity Comment: work with therapy to get stronger Non-emergency contact: Primary Care Provider Call non-emergency contact if: you have any medication questions, your symptoms worsen and your temperature is above 101 Follow-up/Referrals: Sridhar Niño MD [Physician] - (Follow up with PA 3-4 weeks ) Julissa Hurley MD [Physician] - Patricia Shipley DO [Primary Care Provider] - (follow up after discharge from rehab) Diet: Regular Diet Texture: Easy to Chew Addtl Attending Provider Instructions: Ms. Reid, You were recently hospitalized following a fall. You were evaluated by our n eurology and psychiatry team and had changes to your medications. Please see recommendations below regarding your discharge. 1. Propranolol, Levothyroxine, and Lamictal have been added to your medication regimen. 2. Your Clonazepam has been decreased to 0.25mg twice daily. - please see your PCP for further recommendations of how to stop this medication eventually. 3. Your Risperdal has been discontinued as this is thought to be contributing to your symptoms. 4. Please follow up with neurology outpatient. 5. Please follow up with psychiatry outpatient. 6. Please follow up with your PCP within 1-2 weeks on discharge. If you develop any worsening symptoms including worsening weakness/confusion, chest pain, or shortness of breath please report back to the ER for further care. Sincerely, Ashly Barcenas PA-C Pending Studies at Discharge: No Stand-Alone Forms: My [facility] Skilled Items Patient informed of condition?: Yes DNR: No Discharge Level of Care: Acute rehab Communicable Disease: No Discharge Prognosis: Stable Lines: None Urinary Catheter: No Medications and DC Order Prescriptions: New propranolol 60 mg Capsule,Extended Release 24 Hr 60 mg PO QAM Qty: 30 0RF clonazepam 0.25 mg Tablet,Disintegrating 0.25 mg PO BID Qty: 20 0RF levothyroxine [Synthroid] 25 mcg Tablet 25 mcg PO DAILYBB Qty: 30 0RF lamotrigine [Lamictal] 25 mg Tablet 25 mg PO HS Qty: 30 0RF Continued lisinopril 10 mg tablet 10 mg PO DAILY Discontinued clonazepam 0.5 mg Tablet 0.5 mg PO BID@0900,1600 Qty: 60 0RF clonazepam 1 mg Tablet 1 mg PO HS Qty: 30 0RF risperidone 1 mg Tablet 1 mg PO HS Qty: 30 0RF risperidone 0.5 mg Tablet 0.5 mg PO QAM Qty: 30 0RF Discharge Orders: Discharge Order (Routine); Ordered 09/07/24 Ordered By: Ashly Barcenas Admission Data Admit Date/Time: 08/26/24 20:10 Attending Provider: Per Willis Admit Provider: Charlene Gaston Primary Care Provider: Patricia Shipley Other Providers: Charlene Gaston; Julissa Hurley; Jerome Ivory; Aria Fish; Steph Cedeno; Alex Zapien; Akosua Fang; Ganga Manzano; [facility]; [facility]; Sridhar Niño Other Interventions: Discharge Summary Assessment (RN) Last Done: 09/07/24 11:07 Hospital Stay Data Consultations 08/26/24 19:36 ED Decision to Admit Stat 08/26/24 23:09 Consult Psychiatry Routine 09/03/24 14:41 Consult Neurology Routine Diagnostic Imagining Performed 08/26/24 17:33 CT cervical spine wo con Stat CT facial bones wo con Stat CT lumbar spine wo con Stat CT thoracic spine wo con Stat 08/26/24 17:34 CT head/brain wo con Stat 08/26/24 18:51 CT angio head w con Stat CT angio neck with con Stat MR brain wo con Stat 09/02/24 08:04 CT chest diagnostic wo con Urgent Pending Results Patient Have Any Pending Studies at Discharge: No Discharge Instructions Given to Patient (Per Discharging Provider) Ms. Reid, You were recently hospitalized following a fall. You were evaluated by our neurology and psychiatry team and had changes to your medications. Please see recommendations below regarding your discharge. 1. Propranolol, Levothyroxine, and Lamictal have been added to your medication regimen. 2. Your Clonazepam has been decreased to 0.25mg twice daily. - please see your PCP for further recommendations of how to stop this medication eventually. 3. Your Risperdal has been discontinued as this is thought to be contributing to your symptoms. 4. Please follow up with neurology outpatient. 5. Please follow up with psychiatry outpatient. 6. Please follow up with your PCP within 1-2 weeks on discharge. If you develop any worsening symptoms including worsening weakness/confusion, chest pain, or shortness of breath please report back to the ER for further care. Sincerely, Ashly Barcenas PA-C Total Time Total Time Spent Total Time Spent (In Minutes): 40 Total Time Includes: Examination of the Patient, Discharge Planning and Medication Reconciliation Coding Level of Care Code 44701 INP/OBS DISCH >30 MIN Diagnoses Dyskinesia G24.9 Weakness R53.1 Bipolar 1 disorder F31.9 UTI (urinary tract infection) N39.0 Akathisia G25.71
== END 2024-09-07 13:04 | DRG 92 ==
LOC: ED 16:40 → SUATTDRO 20:10 → 3N 20:10
DX: T42.4X5A Adverse effect of benzodiazepines, initial encounter; F31.9 Bipolar disorder, unspecified; R94.6 Abnormal results of thyroid function studies; Z88.0 Allergy status to penicillin; B96.20 Unspecified Escherichia coli [E. coli] as the cause of diseases classified elsewhere; W01.198A Fall on same level from slipping, tripping and stumbling with subsequent striking against other object, initial encounter; S09.90XA Unspecified injury of head, initial encounter; G25.71 Drug induced akathisia; I10 Essential (primary) hypertension; F41.1 Generalized anxiety disorder; G89.29 Other chronic pain; N39.0 Urinary tract infection, site not specified; M79.602 Pain in left arm; T43.505A Adverse effect of unspecified antipsychotics and neuroleptics, initial encounter; E86.0 Dehydration; Z79.899 Other long term (current) drug therapy; G24.01 Drug induced subacute dyskinesia